=== PATIENT | male | born 1930 | race Caucasian/White ===

== ENCOUNTER 2016-05-05 15:32 | Inpatient (IN) | payer OTHER, BC, MEDICARE ==
[~2016-05-05] VITALS: Ht 167.6 cm; Wt 85.3 kg
[~2016-05-05 15:32] MED LIST: ALBUTEROL2.5 MG/3 M INH/SOL; AMIODARONE200 MG PO; AMOXI/CLAVULANA1 TAB PO; CLEARLAX119 GM PO; COLACE100 M1 PO; COLCHICINE0.6 M2 PO; COREG 3.125M3.125 MG PO; COREG6.25 M1 PO; COUMADIN 2.5 M2.5 MG PO; COUMADIN 5 MG TA5 MG PO; COZAAR50 M1 PO; ELIQUIS2.5 M1 PO; FOLBIC 2 MG-2.51 TAB PO; FOLBIC TABLET1 EACH PO; FOLTX 2 MG PO; LASIX40 M1 PO; LEVOTHYROXINE25 MCG PO; MIRALAX17 G1 PO; NEXIUM40 M1 PO; PREDNISONE10 M2 PO; PREDNISONE5 M1 PO; PREVACID 30MG30 MG PO; PROAIR HFA0.09 MG/Ac INH; PROTONIX 40MG T40 MG PO; PYRIDIUM100 MG PO; STOOL SOFTENER1 TAB PO; SYMBICORT 16010.2 GM INH; SYNTHROID0.025 MG PO; TIKOSYN0.125 MG PO; TOPROL XL 25MG25 MG PO; TYLENOL #31 TAB PO; VITAMIN D31000 UNI1 PO; ZOCOR20 M1 PO; [UNRECOGNIZED DRUG - OTHER] PO
--- NOTE | 2016-05-05 15:51 | NUR ---
COMPLAINS OF INCREASED SOB OVER THE PAST 2 DAYS, STATES THAT HE WAS SENT BY DR ANDRES , O2 SAT 94 % ON RA, PT NOTED TO BE SOB AT REST, HAS HAD COUGH X 2 WEEKS PRODUCTIVE OF CLEAR SPUTUM.
--- NOTE | 2016-05-05 15:52 | NUR ---
PT HAS HISTORY OF [facility]
--- NOTE | 2016-05-05 16:01 | NUR ---
PT TO [facility] RM 12 C/C DIFFICULTY BREATHING AND SWELLING BLE. STATES DR PLASENCIA SENT HIM TO ER FOR FLUID OVERLOAD. DENIES ANY CHEST PAIN. HAD EKG DONE IN [place]. HAS PACEMAKER. DR HENDERSON EVALUATING AT PRESENT.
[2016-05-05] MEDS ORDERED: CLEARLAX119 GM PO (16:11)
[2016-05-05] MEDS ORDERED: ALLOPURINOL100 M1 PO (16:12)
--- NOTE | 2016-05-05 16:17 | NUR ---
PORTABLE CHEST XRAY BEING DONE AT PRESENT
--- NOTE | 2016-05-05 16:35 | ED DYSPNEA/ASTHMA COMPLAINT ---
History of Present Illness General Chief Complaint: Dyspnea (COPD, CHF, Other) Stated Complaint: SOB, LEG SWELLING Source: patient, family, old records Exam Limitations: no limitations Vital Signs & Intake/Output Vital Signs & Intake/Output Vital Signs Date Time Temp Pulse Resp B/P Pulse O2 O2 Flow FiO2 Ox Delivery Rate 05/05 1725 97.2 93 20 128/67 93 Room Air 05/05 1645 93 Room Air Room Air 05/05 1550 97.8 84 22 171/76 94 Room Air Allergies Coded Allergies: caffeine (HEADACHES 05/05/16) Reconcile Medications Albuterol Sulfate 2.5 MG/3 ML VIAL.NEB 1 Vial INH/SIXTO PRN RESPIRATORY ( Reported) Allopurinol 100 MG TABLET 1 TAB PO DAILY GOUT (Reported) Apixaban (Eliquis) 2.5 MG TAB 1 TAB PO Q12H BLOOD THINNER (Reported) Budesonide/Formoterol Fumarate (Symbicort 160-4.5 Mcg Inhaler) 10.2 GM HFA.AER.AD 2 PUF INH BIDP PRN BREATHING (Reported) Carvedilol (Coreg) 6.25 MG TABLET 1.5 TAB PO BID HEART (Reported) Cholecalciferol (Vitamin D3) (Vitamin D3) 1,000 UNIT CAPSULE 1 CAP PO BID SUPPLEMENT (Reported) Colchicine 0.6 MG TABLET 0.5 TAB PO DAILY GOUT Cyanocobalamin/FA/Pyridoxine (Folbic Tablet) 1 EACH TABLET 1 TAB PO DAILY SUPPLEMENT (Reported) Docusate Sodium (Colace) 100 MG CAPSULE 1 CAP PO DAILY STOOL SOFTENER ( Reported) Esomeprazole (Nexium) 40 MG CAPSULE.DR 1 CAP PO BID GI (Reported) Furosemide 40 MG TAB 1 TAB PO DAILY DIURETIC (Reported) Levothyroxine Sodium 25 MCG TABLET 1 TAB PO DAILY AC THYROID (Reported) Losartan Potassium (Cozaar) 50 MG TABLET 1 TAB PO DAILY BP (Reported) Polyethylene Glycol 3350 (Clearlax) 17 GRAM/DOSE POWDER 0.5 CAP PO DAILY GI ( Reported) Prednisone 5 MG TABLET 1 TAB PO BID GOUT (Reported) Please start taking on 04/14/16 Simvastatin (Zocor) 20 MG TAB 1 TAB PO QPM CHOLESTEROL (Reported) Core Measure Meds Pre-Hospital Eliquis Triage Note: COMPLAINS OF INCREASED SOB OVER THE PAST 2 DAYS, STATES THAT HE WAS SENT BY DR MOLL , O2 SAT 94 % ON RA, PT NOTED TO BE SOB AT REST, HAS HAD COUGH X 2 WEEKS PRODUCTIVE OF CLEAR SPUTUM. Triage Nurses Notes Reviewed? yes Onset: 2 days Duration: day(s): (2), constant, continues in ED, getting worse Timing: recent history Severity: severe Activities at Onset: activity Prior Episodes/Possible Cause: occasional episodes Modifying Factors: Improves With: rest. Worsens With: movement. Associated Symptoms: edema, wheezing, weakness HPI: 2 days prior to admission patient complains of dyspnea on exertion fatigue increasing pedal edema. He denies fever chills chest pain, headache dysuria rash nausea vomiting diarrhea abdominal pain bleeding. Past History Travel History Traveled to [place] past 21 day No Medical History Any Pertinent Medical History? 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 No Review of Systems Review of Systems Constitutional: Reports: no symptoms, malaise, weakness. EENTM: Reports: no symptoms. Respiratory: Reports: see HPI, short of breath, wheezing. Cardiovascular: Reports: see HPI, edema. GI: Reports: no symptoms. Genitourinary: Reports: no symptoms. Musculoskeletal: Reports: no symptoms. Skin: Reports: no symptoms. Neurological/Psychological: Reports: no symptoms. Hematologic/Endocrine: Reports: no symptoms. Immunologic/Allergic: Reports: no symptoms. All Other Systems: Reviewed and Negative Physical Exam Physical Exam General Appearance: alert, awake, anxious, mild distress, obese Head: atraumatic, normal appearance Eyes: Bilateral: normal appearance, PERRL, EOMI. Ears, Nose, Throat: normal pharynx, normal ENT inspection Neck: normal inspection, supple, full range of motion, JVD, no midline tenderness Respiratory: chest non-tender, decreased breath sounds, crackles, wheezing Cardiovascular: regular rate/rhythm, normal peripheral pulses, norml femoral pulses equa Peripheral Pulses: 4+ carotid (R), 4+ carotid (L) Gastrointestinal: normal bowel sounds, soft, non-tender, no organomegaly Extremities: normal capillary refill, normal range of motion, pedal edema, no ligament instability Neurologic/Psych: no motor/sensory deficits, awake, alert, oriented x 3, normal gait, normal mood/affect Skin: intact, normal color, warm/dry Lymphatic: no anterior cervical angelita Core Measures ACS in differential dx? Yes Severe Sepsis Present: No Septic Shock Present: No Progress Differential Diagnosis: AMI, CHF, pneumonia Plan of Care: Orders Procedure Date/time Status Regular Diet 05/05 D Active Patient Data 05/05 1832 Active Intake & Output 05/05 1739 Active OXYGEN SETUP (GEN) 05/05 1606 Active Saline Lock 05/05 1606 Active Admit to inpatient 05/05 1606 Active Vital Signs 05/05 1606 Active Activity/Ambulation 05/05 1606 Active Code Status 05/05 1606 Active TROPONIN LEVEL 05/05 1605 Complete MAGNESIUM 05/05 1605 Complete COMPREHENSIVE METABOLIC PANEL 05/05 1605 Complete CBC WITHOUT DIFFERENTIAL 05/05 1605 Complete B-TYPE NATRIURETIC PEP (BNP) 05/05 1605 Complete EKG 05/05 1534 Active Laboratory Tests 05/05/16 1636: Anion Gap 14, Estimated GFR 36 L, BUN/Creatinine Ratio 34.4 H, Glucose 122 H, Calcium 9.6, Magnesium 2.1, Total Bilirubin 0.8, AST 30, ALT 29, Alkaline Phosphatase 73, Troponin I 0.11 *H, [id number] Pept 3060 H, Total Protein 7.1, Albumin 3.8, Globulin 3.3, Albumin/Globulin Ratio 1.2, CBC w Diff NO MAN DIFF REQ, RBC 4.07 L, MCV 93.1, MCH 31.3 H, RDW 13.6, MPV 9.5, Gran % 79.0 H, Lymphocytes % 9.4 L, Monocytes % 9.3, Eosinophils % 1.9, Basophils % 0.4, Absolute Granulocytes 8.5 H, Absolute Lymphocytes 1.0 L, Absolute Monocytes 1.0 H, Absolute Eosinophils 0.2, Absolute Basophils 0, PUBS MCHC 33.7 Diagnostic Imaging: Viewed by Me: Radiology Read. Discussed w/RAD: Radiology Read. CXR Impression: Pulmonary hypoinflation. Persistent opacities within the left lung base which could reflect linear scarring or subsegmental atelectasis. Stable prominence of the cardiac silhouette, without overt pulmonary edema. Initial ED EKG: pacemaker rhythm Prior EKG: unchanged Rhythm Strip: paced Departure Departure Disposition: STILL A PATIENT Condition: Stable Clinical Impression Primary Impression: Elevated troponin Secondary Impressions: Renal insufficiency Volume overload Qualifiers: Hypervolemia type: unspecified Qualified Code: E87.70 - Fluid overload, unspecified Referrals: ERINN CARRERA,DOUGLAS Bustamante (PCP/Family) Departure Forms: Customer Survey General Discharge Information Admission Note Spoke With: BOBBI BARROSO MD Documentation of Exam: Documentation of any treatments & extenuating circumstances including Concerns Regarding Discharge (functional status, medication knowledge or non-compliance, living conditions, etc.) that warrant an admission rather than observation: Serial lab exam cardiac monitoring medication adjustment cardiology evaluation continuing care discharge planning Critical Care Note Critical Care Note Critical Care Time: 30-74 min (40)
--- NOTE | 2016-05-05 16:45 | NUR ---
IV ACCESS ESTABLISHED, #20 RH LABS DRAWN/SENT PT MEDICATED WITH LASIX PER ORDERS
[2016-05-05 16:50] LABS: ABSOLUTE BASOPHIL COUNT 0 /CUMM (0.0-0.2); ABSOLUTE EOSINOPHIL COUNT 0.2 /CUMM (0.0-0.7); ABSOLUTE GRANULOCYTE CT 8.5 /CUMM (1.4-6.5); BASOPHIL % 0.4 % (0.0-2.0); EOSINOPHIL % 1.9 % (0-5); HEMATOCRIT 37.9 % (42-52); MEAN CORPUSCULAR HGB 31.3 PG (27.0-31.0); MEAN CORPUSCULAR HGB CONC 33.7 G/DL (33.0-37.0); MEAN CORPUSCULAR VOLUME 93.1 FL (80.0-94.0); MEAN PLATELET VOLUME 9.5 FL (7.4-10.4); PLATELET COUNT 147 /CUMM (130-400); RBC DISTRIBUTION WIDTH 13.6 % (11.5-14.5); RED BLOOD CELL CT 4.07 /CUMM (4.70-6.10); WHITE BLOOD CELL COUNT 10.8 /CUMM (4.8-10.8)
--- NOTE | 2016-05-05 16:51 | RADIOLOGY REPORT ---
EXAMINATION: XR PORTABLE CHEST CLINICAL INFORMATION: Shortness of breath. COMPARISON: None. TECHNIQUE: Portable view of the chest was obtained. FINDINGS: The lungs are hypoinflated, with minimal dependent bibasilar subsegmental atelectasis. No focal airspace consolidation. No pleural effusions or pneumothoraces are identified. Cardiomediastinal contours are stable. Stable cardiomegaly. There is a left chest wall cardiac device with leads visualized terminating in the expected region of the right atrium and right ventricle. Soft tissues are unremarkable. No acute osseous abnormality is identified. IMPRESSION: Pulmonary hypoinflation. Persistent opacities within the left lung base which could reflect linear scarring or subsegmental atelectasis. Stable prominence of the cardiac silhouette, without overt pulmonary edema.
--- NOTE | 2016-05-05 17:20 | NUR ---
CRITICAL TEST RESULTS [id number] HESHAM CARLOS SR 85 M TESTS AND RESULTS: TROPONIN 0.11 Results received and read back by: ALEXY ROD Results received date and time: 05/05/16 1721 The following provider was notified of the results, and read the results back: DR. Carlita HENDERSON Notified date and time: 05/05/16 at 1715
--- NOTE | 2016-05-05 19:13 | NUR ---
RECIEVED REPORT FROM PRIETO BARBER. ASSUMED CARE OF PT. PT DENIES SOB AT THIS TIME.94% ON RA. PACED NSR. VSS.
--- NOTE | 2016-05-05 19:45 | NUR ---
HOUSE STAFF IN ROOM TO EVAL PT
--- NOTE | 2016-05-05 20:03 | NUR ---
PT O2 91%. PLACED ON 2L NC AT THIS TIME AND SATTING 98%.
--- NOTE | 2016-05-05 20:31 | NUR ---
MOVED TO ROOM 22. ASSUMED CARE OF PT.
--- NOTE | 2016-05-05 20:44 | NUR ---
HOUSE STAFF IN TO SEE PT. DR BURGOS NOTIFIED OF TACHYCARDIA WITH FREQUENT PVCS AND SIGNIFIGANT DYSPNEA ON EXERTION
--- NOTE | 2016-05-05 21:55 | History & Physical ---
UZMA CARRERA,[facility] 05/05/16 2154: General Information and HPI MD Statement: I have seen and personally examined HESHAM CARLOS SR and documented this H&P. The patient is a 85 year old M who presented with a patient stated chief complaint of dyspnea. Source of Information: patient Exam Limitations: no limitations History of Present Illness: This is an 85 yo very pleasent gentleman with past medical history significant for CAD s/p 7 stents, CHF, A. fib (status post defibrillator and pacemaker placed 2010) on Eliquis, TIA, gout of right great toe, lung cancer s/p right lobe resection, prostate cancer, hypothyroidism, osteoarthritis, hypertension, hyperlipidemia, presented with chief complaint of progressively worsening dyspnea. 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 Patient states that his increased shortness of breath started 2 weeks ago and has progressively worsened during the last 2 days and is now experiencing dyspnea with minimal exertion. Patient also reports worsening orthopnea and is now sleeping ON a recliner since last week. Patient also endorses bilateral lower extremity edema specifically on his ankles. Patient does deny any chest pain, palpitation, PND, any recent upper respiratory infection, any sick contacts, or any recent travel. At baseline, patient is independent with his IADLS, ambulates freely with a cane without any problems. Allergies/Medications Allergies: Coded Allergies: caffeine (HEADACHES 05/05/16) Home Med list Albuterol Sulfate 2.5 MG/3 ML VIAL.NEB 1 Vial INH/SIXTO PRN RESPIRATORY ( Reported) Allopurinol 100 MG TABLET 1 TAB PO DAILY GOUT (Reported) Apixaban (Eliquis) 2.5 MG TAB 1 TAB PO Q12H BLOOD THINNER (Reported) Budesonide/Formoterol Fumarate (Symbicort 160-4.5 Mcg Inhaler) 10.2 GM HFA.AER.AD 2 PUF INH BIDP PRN BREATHING (Reported) Carvedilol (Coreg) 6.25 MG TABLET 1.5 TAB PO BID HEART (Reported) Cholecalciferol (Vitamin D3) (Vitamin D3) 1,000 UNIT CAPSULE 1 CAP PO BID SUPPLEMENT (Reported) Colchicine 0.6 MG TABLET 0.5 TAB PO DAILY GOUT Cyanocobalamin/FA/Pyridoxine (Folbic Tablet) 1 EACH TABLET 1 TAB PO DAILY SUPPLEMENT (Reported) Docusate Sodium (Colace) 100 MG CAPSULE 1 CAP PO DAILY STOOL SOFTENER ( Reported) Esomeprazole (Nexium) 40 MG CAPSULE.DR 1 CAP PO BID GI (Reported) Furosemide 40 MG TAB 1 TAB PO DAILY DIURETIC (Reported) Levothyroxine Sodium 25 MCG TABLET 1 TAB PO DAILY AC THYROID (Reported) Losartan Potassium (Cozaar) 50 MG TABLET 1 TAB PO DAILY BP (Reported) Polyethylene Glycol 3350 (Clearlax) 17 GRAM/DOSE POWDER 0.5 CAP PO DAILY GI ( Reported) Prednisone 5 MG TABLET 1 TAB PO BID GOUT (Reported) Please start taking on 04/14/16 Simvastatin (Zocor) 20 MG TAB 1 TAB PO QPM CHOLESTEROL (Reported) Past History Travel History Traveled to [place] past 21 day No Medical History Neurological: STROKE EENT: NONE Cardiovascular: AFIB, CHF, NH, PACEMAKER, DEFIBRILAT HTN, HIGHCHOLESTEROL STEN Respiratory: LUNG CA Gastrointestinal: GERD Hepatic: NONE Renal: NONE Musculoskeletal: NONE Psychiatric: NONE Endocrine: hypothyroidism Blood Disorders: NONE Cancer(s): prostate cancer, RIGHT UPPER LOBE REMOVED CA AND PORTION OF RIGHT LOWER LOBE CANCEROUS GROWTH L 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 Ambulation: independent, cane, non-ambulatory IADLs Independent: shopping, housework, finances, food prep, telephone, transportation , medication admin. Review of Systems Review of Systems Constitutional: Denies: chills, diaphoresis, fever. EENTM: Denies: blurred vision, double vision, visual changes. Cardiovascular: Reports: edema, orthopena. Denies: chest pain, palpitations, syncope. Respiratory: Reports: cough. Denies: hemoptysis. GI: Denies: abdominal pain, bloating, constipation. Genitourinary: Denies: dysuria, frequency, hematuria. Musculoskeletal: Denies: joint swelling, muscle pain. Skin: Denies: change in skin color, change in hair/nails. Neurological/Psychological: Denies: anxiety, cognitive dysfunction, confusion. Hematologic/Endocrine: Denies: bleeding, polyuria. Immunologic/Allergic: Reports: no symptoms. Exam & Diagnostic Data Last 24 Hrs of Vital Signs/I&O Vital Signs Date Time Temp Pulse Resp B/P Pulse O2 O2 Flow FiO2 Ox Delivery Rate 05/06 0035 Nasal 2.0L Cannula 05/05 2317 97 Nasal 2.0L Cannula 05/05 2231 154 142/76 05/05 2128 154 22 142/76 97 Nasal 2.0L Cannula 05/05 1920 97.6 78 20 137/67 94 Room Air 05/05 1725 97.2 93 20 128/67 93 Room Air 05/05 1645 93 Room Air Room Air 05/05 1550 97.8 84 22 171/76 94 Room Air Intake & Output 05/06 0800 05/06 0000 05/05 1600 Intake Total Output Total 600 Balance -600 Output, Urine 600 Patient 85.275 kg 85.275 kg Weight Physical Exam General Appearance Alert, Oriented X3, Cooperative Skin ecchymosis noted on hands b/l HEENT Atraumatic, EOMI, Mucous Membr. moist/pink, hypodentition noted on the upper jaw., Elevated JVD Neck Supple, No JVD, +2 Carotid Pulse wo Bruit, No LAD Lymphatic Cervical nl Cardiovascular Normal S1, Normal S2, systolic murmur Lungs bilateral expiratory wheezes noted on al the lung hernandez Abdomen Normal Bowel Sounds, Soft, No Tenderness, No Hepatospenomegaly Neurological Normal Speech, Sensation Intact Extremities pitting edema +3 on ankles b/l Vascular Normal Pulses Last 24 Hrs of Labs/Pro: Laboratory Tests 05/05/165: pH 7.45, pCO2 40, pO2 95, HCO3 27, ABG O2 Sat (Measured) 97.0, Carboxyhemoglobin 0.6 L, O2 Concentration % 2L, O2 Delivery Method NC, Phlebotomy Draw Site RIGHT RADIAL 05/05/16 2226: Troponin I 0.14 *H 05/05/16 1636: Anion Gap 14, Estimated GFR 36 L, BUN/Creatinine Ratio 34.4 H, Glucose 122 H, Calcium 9.6, Magnesium 2.1, Total Bilirubin 0.8, AST 30, ALT 29, Alkaline Phosphatase 73, Troponin I 0.11 *H, Kco-I-Qyqgmbmfswj Pept 3060 H, Total Protein 7.1, Albumin 3.8, Globulin 3.3, Albumin/Globulin Ratio 1.2, CBC w Diff NO MAN DIFF REQ, RBC 4.07 L, MCV 93.1, MCH 31.3 H, RDW 13.6, MPV 9.5, Gran % 79.0 H, Lymphocytes % 9.4 L, Monocytes % 9.3, Eosinophils % 1.9, Basophils % 0.4, Absolute Granulocytes 8.5 H, Absolute Lymphocytes 1.0 L, Absolute Monocytes 1.0 H, Absolute Eosinophils 0.2, Absolute Basophils 0, PUBS MCHC 33.7 Diagnostic Data CXR Results SERVICE DATE: 05/05/16160 EXAM TYPE: RAD - XRY-PORTABLE CHEST XRAY EXAMINATION: XR PORTABLE CHEST CLINICAL INFORMATION: Shortness of breath. COMPARISON: None. TECHNIQUE: Portable view of the chest was obtained. FINDINGS: The lungs are hypoinflated, with minimal dependent bibasilar subsegmental atelectasis. No focal airspace consolidation. No pleural effusions or pneumothoraces are identified. Cardiomediastinal contours are stable. Stable cardiomegaly. There is a left chest wall cardiac device with leads visualized terminating in the expected region of the right atrium and right ventricle. Soft tissues are unremarkable. No acute osseous abnormality is identified. IMPRESSION: Pulmonary hypoinflation. Persistent opacities within the left lung base which could reflect linear scarring or subsegmental atelectasis. Stable prominence of the cardiac silhouette, without overt pulmonary edema. Assessment/Plan Assessment: This is a 85-year-old gentleman with significant history of CAD with multiple stent placements, A. fib, CHF is presenting with symptoms suggestive of decompensated CHF (worsening dyspnea, lower extremity edema, orthopnea). Of note, patient does have elevated troponins. However it is most likely secondary to myocardial demand/supply mismatch as patient has developed tachycardia while in the ED, and is unlikely to be associated with Plaque rupture especially in the absence of any chest pain or any other typical symptoms . It should be noted that the patient has some element of chronic renal insufficiency which might contribute to elevated troponins and decreased washout. However we will need to rule out completely r/o ACS as the possible cause of patient's presentation of decompensated CHF. Physical examination findings of diffuse expiratory bilateral wheezes , is concerning especially considering the Pulmonary function test done in 07/18/2014 , which was remarkable for mild obstructive lung disease. Pt is possibly presenting with worsening obstructive lung disease. Plan * Admit to telemetry * We'll trend troponins and EKG rule out ACS * Start furosemide 40 mg twice a day * Strict ins and outs * Echocardiogram * Cardiology on board (appreciated) * Continue Elliquis for parosxymal afib. * O2 supplementation to keep sats above 92% * Start Solu-Medrol 40 mg every 8 hours for wheezing * TRC nebs * For chronic medical condition: Hyperlipidemia, gout, hypertension, hypothyroidism: Willl continue home meds As Ranked By This Provider Problem List: 1. CONGESTIVE HEART FAILURE 2. Elevated troponin Core Measures/Miscellaneous Acute Coronary Syndrome ACS Diagnosis: No Cerebrovascular Accident CVA/TIA Diagnosis: No Congestive Heart Failure CHF Diagnosis: No Venous Thromboembolism VTE Risk Factors: Age > 40 VTE Prophylaxis Ordered Inpt: Pharm- Eliquis No Mech VTE prophylaxis d/t: No contraindications No VTE Pharm Prophylaxis d/t: No contraindications VTE Diagnosis: No VTE Type: NONE VTE Confirmed by (Test): NONE Severe Sepsis Severe Sepsis Present: No Septic Shock Septic Shock Present: No Miscellaneous Documentation Attending Case Discussed With: BOBBI BARROSO MD Primary Care Physician: DOUGLAS PLASENCIA MD 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 Level of Patient Care: Telemetry SHAUN BURGOS 05/05/16 2250: Resident Review Statement Resident Statement: examined this patient, discussed with staff internist office based only, agreed with staff internist office based only Other Findings: Patient is 85-year-old woman with past medical history significant for significant coronary artery disease status post 7 stents placed , history of TIA ,systolic heart failure EF of 35%, atrial fibrillation status post post pacer and a fibrillator on Eliquis, history of lung cancer, history of prostate cancer diagnosed 2014 status postradiation and surgerY, history of recent left eyebrow lesion status post removal by Heriberto Hurtado MD, recently admitted to [facility] in April due to gout arthritis, presented to the ED with chief complaints of worsening exertional dyspnea. Patient mentioned that last 1 week he has been sleeping in the region in a position mostly short of breath at night, coughing bringing up clear phlegm. Also reports exertional dyspnea. For the last 2-3 days he's been getting more short of breath, denies any chest discomfort or palpitations. Today his symptoms got worse after coming back from clinic appointment and came to the ER for further assessment. Denies any recent infections, fever or chills. Denies any recent travels change of medications. Reports nausea without any vomiting or abdominal discomfort. Reports worsening bilateral leg swellings. Vitals on admission temperature 97.8, pulse 84, blood pressure 171/79 that improved to 128/67 saturating more than 92% on 2 L. On examination: General Appearance: alert oriented 3, appeared in moderate distress HEENT: PEERLA Neck: Supple, positive JVD Cardiovascular: Irregular rate and rhythm Lungs: Bilateral wheeze on exam Abdomen: Normal Bowel Sounds without any tenderness. Neurological: Normal Speech, Strength at 5/5 X4 Ext, Cranial Nerves 3-12 NL, Reflexes 2+ Extremities: 2+ pitting edema bilaterally in the lower extremities. Vascular: Normal Pulses. Pertinent labs on admission WBC count 10.8 with granulocytosis of 79, normal sodium and potassium levels elevated BUN and creatinine 62/1.8 ,creatinine close to the baseline. ABG done in the ED is normal pH 7.45 with PCO2 of 40 and PO2 of 95, Elevated troponin 0.11 with EKG done in the ED showed ventricular paced rhythm with nonspecific ST changes. Chest x-ray done in the ED Pulmonary hypoinflation. Persistent opacities within the left lung base which could reflect linear scarring or subsegmental atelectasis. Stable prominence of the cardiac silhouette, without overt pulmonary edema. Negative stress test done in 2014 reversible ischemia with an EF 35%(decreased from 40-45%) Pulmonary function test done in 07/18/2014 showed mild obstructive lung disease Assessment/plan 1. Acute hypoxic respiratory failure due to possible acute on chronic systolic heart failure with possible underlying COPD exacerbation 2. Rule out acute coronary syndrome(history of significant coronary artery disease status post 7 stents placed) 3. History OF hypothyroidism 4. History of gout arthritis plan 1. Acute hypoxic respiratory failure due to possible acute on chronic systolic heart failure with possible underlying COPD exacerbation: * We'll admit the patient to telemetry floor * Talk to Dr. Mack over the phone, patient already received a one-time dose of IV Lasix 40 mg in the ED will continue with IV Lasix 40 mg for possible acute systolic heart failure. * Monitor strict in's and O's with daily weight changes. * Leg elevation. * Repeat echocardiogram. * Continuous and keep saturation above 92%. * As patient is clearly wheezing, we'll start the patient on IV Solu-Medrol 40 mg every 8 hours for possible underlying COPD exacerbation. * Start azithromycin for antiinflammatory properties * Continue Symbicort * Continue TRC nebs * Watch for any hemodynamic instability overnight. 2. Rule out acute coronary syndrome(history of significant coronary artery disease status post 7 stents placed) * Elevated troponins without any significant ST-Tchanges * Talked to Dr. Mack over the phone, he said continue to monitor patient overnight. If patient becomes any worse and become more symptomatic Will call cardiology. 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 History of paroxysmal atrial fibrillation * Continue with home dose of elliquis . 4. History OF hypothyroidism: * Continue with levothyroxin 5. History of gout arthritis * Continue with allopurinol. 6 mild to moderate pain controlled with Tylenol 7. DVT prophylaxis with elliquis. 8. Full code DHARMESH,AARTEE 05/06/16 0249: Attending MD Review Statement Attending Statement Attending MD Statement: examined this patient, discuss w/resident/PA/PSYCHIATRIC LPN, agreed w/resident/PA/PSYCHIATRIC LPN, reviewed EMR data (avail), reviewed images, amended to note Attending Assessment/Plan: Cc: Worsening shortness of breath PMHx: HFrEF (EF 35% ON nuclear imaging in 2014) , CAD S/P stents, suspected COPD , A. 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 Last 2-3 days patient was having worsening of the symptoms, probably followed by post nasal drip according to patient. He followed up with Dr. Plasencia outpatient 2-3 days back who increased his dose of Lasix, without much relief. Patient's symptoms are worsening along with orthopnea. Patient was sleeping in a recliner at home. Denies any chest pain, fever, chills, loss of consciousness, headache, neurological weakness, sick contacts. Patient did not take flu vaccine since last 2 years because of previous severe reaction. Vitals: Afebrile, intermittent tachycardic in ER with RR 20, blood pressure stable requiring 2 L to saturate at 94%. Intermittently patient was desaturating at 88%. On exam: A O 3, intermittent severe respiratory distress, patient tripoding at times exaggerated by cough. Elevated JVD, CVS: S1-S2, RS: Diffuse bilateral wheezing, no bibasilar crackles. Mucosa dry, neck supple, no lymphadenopathy, patient has dressing on left forehead and in parotid area, probably with recent surgery. Abdomen: Soft, NT, ND, bowel sounds present. Pitting edema on feet. No focal neurological deficit. Labs show W BC of 10.8 with neutrophils 79%, hemoglobin 12.8, glucose 122, creatinine 1.8 which is baseline, troponin 0.11, proBNP 3060 elevated from 1370 in April 2016, LFT normal, Chest x-ray: Persistent opacity within left lung base which could be atelectasis versus scarring. EKG wide complex, paced rhythm. A and P #1 acute hypoxic respiratory failure: Probably secondary to decompensated heart failure and COPD exacerbation. Chest x-ray does not show any new infiltrates, no significant leukocytosis or fever. But patient is significantly short of breath with diffuse wheezing bilaterally. Patient received 40 mg of Lasix IV in ER which provided some relief but was significantly better after nebulization and second dose of Lasix. Previous pulmonary function test suggest some obstructive pulmonary disease, patient has a very remote history of smoking for a few years. Continue IV methylprednisolone 40 mg every 8 hour, nebulization, O2 support, Mucinex, check flu test. Repeat 40 mg of IV Lasix in AM. Repeat chest x-ray in morning to rule out any development of consolidation, get sputum culture #2 elevated troponins: Patient has shortness of breath, volume overload which may precipitate demand ischemia. But patient has extensive cardiac history with multiple stents in the past, with the recent reversible ischemia in nuclear imaging done in 2014. In this scenario closely monitor patient on telemetry, repeat EKG, trend troponin, informed cardiology, patient currently on Eliquis , change to heparin drip if symptoms worsen of markedly increasing troponin. Continue Coreg, Eliquis. Patient not on aspirin, continue atorvastatin #3 decompensated heart failure: Patient had 40-50% ejection fraction on echocardiogram done in 2012 it was followed by stress test in 2014 which shows ejection fraction of 35% on nuclear imaging. Patient had some elevated JVD, pedal edema with elevated proBNP. Patient had extensive wheezing (?cardiac wheezing), but no obvious crackles. Continue IV Lasix, eyes and O's, informed cardiology, ? Repeat 2-D echo #4 COPD exacerbation: Plan as mentioned above. #5 chronic stable conditions see KD, HTN, OA, gout, HLD, CVA, A. fib: Continue all his home medications including allopurinol, Coreg, colchicine, Nexium, Synthroid, losartan. #6 pain control with pain pathway, patient on Eliquis for DVT prophylaxis.
--- NOTE | 2016-05-05 22:48 | NUR ---
PT CONTINUES TO HAVE EXPIRATORY WHEEZES AND SHORT OF BREATH WITH MINIMAL EXERTION. DR BURGOS NOTIFIED AND JOSE LUIS HOLLIS ORDERED. RT TREY ABGS. REVIEWED LASIX ORDER WITH LORETTA AND SHE STATES TO GIVE EVENING DOSE ORDERED
--- NOTE | 2016-05-05 22:48 | NUR ---
PT SITTING UP ON EDGE OF BED
--- NOTE | 2016-05-05 22:52 | NUR ---
PT GETTING NEB TREATMENT. SITTING ON EDGE OF BED.
--- NOTE | 2016-05-05 23:20 | NUR ---
CRITICAL TEST RESULTS [id number] HESHAM CARLOS T SR 85 M TESTS AND RESULTS: TROPONIN 0.14 Results received and read back by: MICHELE MONTEMAYOR Results received date and time: 05/05/16 2321 The following provider was notified of the results, and read the results back: DR LANDIN Notified date and time: 05/05/16 at 2320
--- NOTE | 2016-05-05 23:26 | NUR ---
REPORT GIVEN TO STEPH MOREAU
--- NOTE | 2016-05-06 02:51 | Admission Certification ---
Admission Certification Certification Statement - As attending physician, I certify that at the time of - admission, based on clinical presentation, severity of - symptoms, need for further diagnostic testing and - therapeutic interventions, and risk of adverse outcomes - without in-hospital treatment, in my clinical assessment, - this patient requires an acute hospital stay for a minimum - of two nights or longer. I have also considered psychsocial - factors such as support system, advanced age, financial - issues, cognitive issues, and failed out-patient treatments, - past re-admission history, safety of patient, and lack of - compliance as applicable. Specific rationale supporting this admission is: elevated troponin, acute Heart failure, COPD exacerbation.
[2016-05-06 04:48] LABS: ABSOLUTE BASOPHIL COUNT 0 /CUMM (0.0-0.2); ABSOLUTE EOSINOPHIL COUNT 0 /CUMM (0.0-0.7); ABSOLUTE GRANULOCYTE CT 8.6 /CUMM (1.4-6.5); ABSOLUTE LYMPH COUNT 0.8 /CUMM (1.2-3.4); ABSOLUTE MONOCYTE COUNT 0.3 /CUMM (0.10-0.60); BASOPHIL % 0.3 % (0.0-2.0); EOSINOPHIL % 0.4 % (0-5); GRANULOCYTE % 88.1 % (42.2-75.2); HEMATOCRIT 37.4 % (42-52); MEAN CORPUSCULAR HGB 31.7 PG (27.0-31.0); MEAN CORPUSCULAR HGB CONC 33.9 G/DL (33.0-37.0); MEAN CORPUSCULAR VOLUME 93.4 FL (80.0-94.0); MEAN PLATELET VOLUME 9.1 FL (7.4-10.4); PLATELET COUNT 133 /CUMM (130-400); RBC DISTRIBUTION WIDTH 13.6 % (11.5-14.5); RED BLOOD CELL CT 4.01 /CUMM (4.70-6.10); WHITE BLOOD CELL COUNT 9.8 /CUMM (4.8-10.8)
[2016-05-06 06:10] VITALS: BP 134/68
--- NOTE | 2016-05-06 06:43 | NUR ---
APPX [id number], LAB CALLED TO REPORT TROPONIN OF 0.15. RN PAGED HOUSE STAFF. NO RETURN CALL. HOUSE STAFF PAGED AGAIN. MOD THEN PAGED. NO RETURN CALL. WILL CONTINUE TO PAGE AND LET NEXT NURSE SITUATION
--- NOTE | 2016-05-06 07:58 | RADIOLOGY REPORT ---
EXAMINATION: XR PORTABLE CHEST CLINICAL INFORMATION: Shortness of breath. COMPARISON: 05/05/2016 TECHNIQUE: Portable view of the chest was obtained. FINDINGS: Left chest wall AICD/pacer is unchanged. Low lung volumes. Bibasilar patchy opacities noted. Small right pleural effusion. The appearance is without significant change. No pneumothorax. The cardiomediastinal silhouette is unchanged, with a calcified aorta. No acute osseous abnormality. IMPRESSION: No significant change from prior. Low lung volumes with patchy basilar opacities most suggestive of subsegmental atelectasis. Small right pleural effusion suspected.
--- NOTE | 2016-05-06 08:11 | PN- Housestaff ---
RONALDO GANDHI 05/06/16 0810: Subjective Follow-up For: -Acute hypoxic respiratory failure -Diastolic CHF Other problems : -Chronic renal insufficiency -Atrial fibrillation withpermanent pacemaker placed -Gout -Hypothyroidism Complaints: no complaints Subjective: I have seen and examined the patient today morning, he was sitting comfortable in the bed, shortness of breath has improved from presentation, currently on 2 L of nasal cannula saturating 97%, he was complaining of cramping in the the afternoon today. Review of Systems Constitutional: Reports: malaise. Denies: chills, diaphoresis, fever, weakness, unexplained weight loss. EENTM: Denies: blurred vision, double vision, visual changes, eye pain. Cardiovascular: Reports: see HPI, edema, peripheral edema. Denies: orthopena, palpitations. Respiratory: Reports: short of breath, wheezing. Gastrointestinal: Reports: no symptoms. Genitourinary: Reports: no symptoms. Musculoskeletal: Reports: muscle stiffness. Skin: Reports: no symptoms. Objective Last 24 Hrs of Vital Signs/I&O Vital Signs Date Time Temp Pulse Resp B/P Pulse O2 O2 Flow FiO2 Ox Delivery Rate 05/06 0610 96.6 95 16 134/68 97 Nasal 2.0L Cannula 05/06 0035 Nasal 2.0L Cannula 05/05 2317 97 Nasal 2.0L Cannula 05/05 2231 154 142/76 05/05 2128 154 22 142/76 97 Nasal 2.0L Cannula 05/05 1920 97.6 78 20 137/67 94 Room Air 05/05 1725 97.2 93 20 128/67 93 Room Air 05/05 1645 93 Room Air Room Air 05/05 1550 97.8 84 22 171/76 94 Room Air Intake & Output 05/06 1600 05/06 0800 05/06 0000 Intake Total 260 Output Total 425 600 Balance -165 -600 Intake, IV 260 Output, Urine 425 600 Patient 85.275 kg Weight Physical Exam General Appearance: Alert, Oriented X3, Cooperative, on 2 litres nasal cannula Skin: No Rashes, No Breakdown, No Significant Lesion HEENT: Atraumatic, PERRLA, EOMI Neck: Supple, No JVD, No thryomegaly Lymphatic: no lad Cardiovascular: Normal S1, Normal S2 Lungs: b/l wheezing present Abdomen: Normal Bowel Sounds, Soft, No Tenderness Neurological: Normal Speech, Normal Tone, Sensation Intact Extremities: b/l le edema, mild 1+, says better than last few days , mainly around the ankle area Vascular: Normal Pulses Current Medications: Current Medications Sig/Jaswinder Start time Last Medication Dose Route Stop Time Status Admin Acetaminophen 650 MG Q6-PRN PRN 05/05 2200 AC PO Albuterol Sulfate 3 ML ONCE ONE 05/05 2315 DC 05/05 INH 05/05 2316 2317 Allopurinol 100 MG DAILY 05/06 1000 AC PO Apixaban 2.5 MG Q12 05/05 2200 AC 05/05 PO 2231 Atorvastatin Calcium 10 MG 1700 05/06 1700 AC PO Azithromycin 500 MG AT BEDTIME 05/05 2345 AC 05/06 Sodium Chloride 250 ML IV 0046 Budesonide/ 2 PUF BID 05/06 1000 AC Formoterol Fumarate INH Carvedilol 0 .STK-MED ONE 05/05 2208 DC PO Carvedilol 0 .STK-MED ONE 05/05 2205 DC PO Carvedilol 9.375 MG BID 05/05 2200 AC 05/05 PO 2231 Colchicine 300 MCG DAILY 05/06 1000 AC PO Docusate Sodium 100 MG DAILY 05/06 1000 AC PO Furosemide 40 MG DAILY 05/06 1000 CAN PO Furosemide 0 .STK-MED ONE 05/06 0650 DC IV Furosemide 0 .STK-MED ONE 05/05 2234 DC IV Furosemide 40 MG BOLUS ONE 05/05 2230 CAN IV 05/05 2231 Furosemide 40 MG 7:30 AM, & 4:30 PM 05/05 2230 AC 05/06 IV 0700 Furosemide 0 .STK-MED ONE 05/05 1640 DC IV Furosemide 40 MG ONCE ONE 05/05 1615 DC 05/05 IV 05/05 1616 1644 Ipratropium [place] 2.5 ML ONCE ONE 05/05 2315 DC 05/05 INH 05/056 2317 Levothyroxine Sodium 0.025 MG DAILY AC 05/06 0700 AC 05/06 PO 0700 Losartan Potassium 50 MG DAILY 05/06 1000 AC PO Methylprednisolone 0 .STK-MED ONE 05/06 0650 DC .ROUTE Methylprednisolone 0 .STK-MED ONE 05/06 0008 DC .ROUTE Methylprednisolone 40 MG Q8 05/05 2345 AC 05/06 IV 0700 Omeprazole 40 MG DAILY AC 05/06 0700 AC 05/06 PO 0700 Omeprazole 0 .STK-MED ONE 05/06 0650 DC PO Polyethylene Glycol 17 GM DAILY 05/06 1000 AC PO Last 24 Hrs of Lab/Pro Results Last 24 Hrs of Labs/Mics: Laboratory Tests 05/06/16 0436: Troponin I 0.15 *H 05/06/16 0436: Anion Gap 15, Estimated GFR 32 L, BUN/Creatinine Ratio 32.0 H, CBC w Diff NO MAN DIFF REQ, RBC 4.01 L, MCV 93.4, MCH 31.7 H, RDW 13.6, MPV 9.1, Gran % 88.1 H, Lymphocytes % 8.3 L, Monocytes % 2.9, Eosinophils % 0.4, Basophils % 0.3, Absolute Granulocytes 8.6 H, Absolute Lymphocytes 0.8 L, Absolute Monocytes 0.3, Absolute Eosinophils 0, Absolute Basophils 0, PUBS MCHC 33.9 05/05/16 2245: pH 7.45, pCO2 40, pO2 95, HCO3 27, ABG O2 Sat (Measured) 97.0, Carboxyhemoglobin 0.6 L, O2 Concentration % 2L, O2 Delivery Method NC, Phlebotomy Draw Site RIGHT RADIAL 05/05/16 2226: Troponin I 0.14 *H 05/05/16 1636: Anion Gap 14, Estimated GFR 36 L, BUN/Creatinine Ratio 34.4 H, Glucose 122 H, Calcium 9.6, Magnesium 2.1, Total Bilirubin 0.8, AST 30, ALT 29, Alkaline Phosphatase 73, Troponin I 0.11 *H, [id number]-D-Qhvwfaoinyj Pept 3060 H, Total Protein 7.1, Albumin 3.8, Globulin 3.3, Albumin/Globulin Ratio 1.2, CBC w Diff NO MAN DIFF REQ, RBC 4.07 L, MCV 93.1, MCH 31.3 H, RDW 13.6, MPV 9.5, Gran % 79.0 H, Lymphocytes % 9.4 L, Monocytes % 9.3, Eosinophils % 1.9, Basophils % 0.4, Absolute Granulocytes 8.5 H, Absolute Lymphocytes 1.0 L, Absolute Monocytes 1.0 H, Absolute Eosinophils 0.2, Absolute Basophils 0, PUBS MCHC 33.7 Orders ECHO Findings: echo pending for today. Echocardiogram from December 2012 was limited, [id number] aortic sclerosis, mild mitral insufficiency, ejection fraction 45-50% with mild LVH and mild global hypokinesia, right heart structures were not optimally visualized, pacemaker wires were present in the right heart chambers. Radiology Findings: Chest x-ray from 05/05/2016 showed pulmonary hyperinflation, persistent opacity within the left lung base, no overt pulmonary edema was seen. Chest x-ray from 05/06/2016 showed similar finding with low lung volumes, patchy basilar opacity suggestive of subsegmental atelectasis, small light. Effusion was suspected however no overt pulmonary edema was seen. Miscellaneous Findings: Lower Respiratory cultures were sent but were canceled - due to not so good specimen. Lines/Diet/Fluids Fluids/Infusions: none Catheters/Tubes: o2 nasal cannula Assessment/Plan Assessment: This is a 85-year-old man who came in last night that is 05/05/2016 with chief complaint of worsening exertional dyspnea associated with cough, clear phlegm, referred to [facility] from his primary care practitioner's office for worsening shortness of breath, after no improvement with increased dose of Lasix. 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 He was afebrile with temperature of 97.8 on presentation, pulse of 84, blood pressure of 171/79 came down. On presentation patient was 92% on 2 L however he was intermittently desaturating to 88%. He remained afebrile overnight, he is currently 96% saturating on 2 L of nasal cannula, he has bilateral wheezing present diffusely, he has mild pedal edema bilaterally, mainly in the ankle area ,he has a negative fluid balance, cardiology - Dr. Vidales and banana room cutter Dr. Franco on board. Problem List along with assessment and plan. #1 acute hypoxic respiratory failure (multifactorial) He came in with worsening shortness of breath, did not improve on increased dose of Lasix, pedal edema. Patient had PFTs in July 2014 which showed mild obstruction and severe reduction in DLCO month he does have a diagnosis of obstructive sleep apnea however he refrains from using CPAP and has never used it. The worsening shortness of breath could be secondary to COPD exacerbation, along with diastolic heart failure, pulmonary hypertension. continue IV Solu-Medrol, however but use it to 40 mg IV every 12. Continue azithromycin IV to complete entire course of 5 days. We'll continue telemetry monitoring. Will continue TRC nebulizations. Lower respiratory culture sample was contaminated, if able to send fresh sample. Repeat Chest x-ray did not show any overt pulmonary edema today. continue diuresing him with IV 40 mg Lasix daily. continue to follow pulmonology/cardiology recommendations. check magnesium and added on today's lab. Continue to monitor lites along with strict intakes and outputs, continue new leg elevation. Ehcocardiogram pending. #2 bilateral lower extremity edema. Edema has improved significantly after increase of Lasix dosage by the PCP. This could be secondary to diastolic heart failure as well as venous insufficiency. Continue IV diuresis and continue to monitor intakes and outputs. #3 elevated troponins. Troponins trended to 0.11.... 0.14..... 0.15..... 0.12, most likely thought to be secondary to demand ischemia. Cardiology on board, we'll continue to follow. We will continue Lipitor 10 mg daily for hypercholesterolemia, losartan 50 mg daily for hypertension, colchicine 300 g daily allopurinol 100 mg daily for gout, MiraLAX and Colace for constipation,synthyroid 0.025 mg for hypothyroidism , carvedilol 9.375 mg twice a day for rate control and Eliquis for anticoagulation for his atrial fibrillation. DVT prophylaxis with Eliquis. Patient is full code [id number] pain control with Tylenol. Problem List: 1. Benign essential hypertension 2. CHEST PAIN 3. CONGESTIVE HEART FAILURE 4. LUNG CANCER 5. Volume overload 6. Elevated troponin 7. Renal insufficiency 8. Acute and chronic respiratory failure with hypoxia Pain Ratin Pain Location: NA Pain Goal: Remain pain free Pain Plan: ct current mx Tomorrow's Labs & Rationales: lytes to monitoe ins and outs AUSTEN REID MD 05/06/16 1123: Attending Review Statement Attending Statement Attending MD Statement: examined this patient, discuss w/resident/PA/QUOTER, agreed w/resident/PA/QUOTER, reviewed EMR data (avail), discussed with nursing, discussed with case mgmt Attending Assessment/Plan: Complex 85 year old male with afib on eliquis, chronic systolic heart failure ( EF 35%), COPD, CAD and recent [place]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 He is here with acute shortness of breath questionable COPD versus CHF exacerbation. We have him on steroids and azithromycin with Lasix for CHF. 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 Appreciate pulmonary evaluation and will follow-up with Dr. Vidales as well.
--- NOTE | 2016-05-06 10:29 | Cons- Pulmonary ---
General Information and HPI Consulting Request Date of Consult: 05/06/16 Requested By: Dr. Sifuentes Reason for Consult: dyspnea Source of Information: patient Exam Limitations: no limitations History of Present Illness: 84 year old man. Admitted with dyspnea. History of lung cancer. CAT scan of the chest performed in April 2016 RUL lobectomy, RLL scarring. Multiple nodules with stability. . The test shows stable scarring in both lower lobes and he status post right upper lobectomy. His Does not wish to use CPAP therapy knowing risks. Dyspnea on exertion and now at rest. Recently stopped spiriva and resumed a few weeks ago. Cough has been persistent and worsening. White phlegm, no fevers, no chills, no travel history, no sick contacts. He has a nebulizer that he uses intermittently, however instructed to use it 3 times daily. Has had PFTs 07/2014 with mild obstruction, severe reduction in DLCO and borderline exertional desaturation. He also has had an evaluation of his swallowing which was normal to date. Has seen Dr. Fisher in the past. He has had a diagnosis of obstructive sleep apnea, however he has not used any equipment and is clear that he has no intention to get therapy and declines therapy for HORTENSIA knowing the risks. Intermittent leg swelling but is now on Lasix. On Eliquis for a.fib. Recent exacerbation of gout, now controlled. Creatinine 2 and is around baseline. Allergies/Medications Allergies: Coded Allergies: caffeine (HEADACHES 05/05/16) Home Med List: Albuterol Sulfate 2.5 MG/3 ML VIAL.NEB 1 Vial INH/SIXTO PRN RESPIRATORY ( Reported) Allopurinol 100 MG TABLET 1 TAB PO DAILY GOUT (Reported) Apixaban (Eliquis) 2.5 MG TAB 1 TAB PO Q12H BLOOD THINNER (Reported) Budesonide/Formoterol Fumarate (Symbicort 160-4.5 Mcg Inhaler) 10.2 GM HFA.AER.AD 2 PUF INH BIDP PRN BREATHING (Reported) Carvedilol (Coreg) 6.25 MG TABLET 1.5 TAB PO BID HEART (Reported) Cholecalciferol (Vitamin D3) (Vitamin D3) 1,000 UNIT CAPSULE 1 CAP PO BID SUPPLEMENT (Reported) Colchicine 0.6 MG TABLET 0.5 TAB PO DAILY GOUT Cyanocobalamin/FA/Pyridoxine (Folbic Tablet) 1 EACH TABLET 1 TAB PO DAILY SUPPLEMENT (Reported) Docusate Sodium (Colace) 100 MG CAPSULE 1 CAP PO DAILY STOOL SOFTENER ( Reported) Esomeprazole (Nexium) 40 MG CAPSULE.DR 1 CAP PO BID GI (Reported) Furosemide 40 MG TAB 1 TAB PO DAILY DIURETIC (Reported) Levothyroxine Sodium 25 MCG TABLET 1 TAB PO DAILY AC THYROID (Reported) Losartan Potassium (Cozaar) 50 MG TABLET 1 TAB PO DAILY BP (Reported) Polyethylene Glycol 3350 (Clearlax) 17 GRAM/DOSE POWDER 0.5 CAP PO DAILY GI ( Reported) Prednisone 5 MG TABLET 1 TAB PO BID GOUT (Reported) Please start taking on 04/14/16 Simvastatin (Zocor) 20 MG TAB 1 TAB PO QPM CHOLESTEROL (Reported) Current Medications: Current Medications Sig/Jaswinder Start time Last Medication Dose Route Stop Time Status Admin Acetaminophen 650 MG Q6-PRN PRN 05/05 2199 AC PO Albuterol Sulfate 3 ML ONCE ONE 05/05 2315 DC 05/05 INH 05/05 2316 2317 Allopurinol 100 MG DAILY 05/06 1000 AC 05/06 PO 1012 Apixaban 2.5 MG Q12 05/05 2200 AC 05/06 PO 1014 Atorvastatin Calcium 10 MG 1700 05/06 1700 AC PO Azithromycin 500 MG AT BEDTIME 05/05 2345 AC 05/06 Sodium Chloride 250 ML IV 0046 Budesonide/ 2 PUF BID 05/06 1000 AC 05/06 Formoterol Fumarate INH 1014 Carvedilol 0 .STK-MED ONE 05/05 2208 DC PO Carvedilol 0 .STK-MED ONE 05/05 2205 DC PO Carvedilol 9.375 MG BID 05/05 2200 AC 05/06 PO 1013 Colchicine 300 MCG DAILY 05/06 1000 AC 05/06 PO 1013 Docusate Sodium 100 MG DAILY 05/06 1000 AC 05/06 PO 1013 Furosemide 40 MG DAILY 05/06 1000 CAN PO Furosemide 0 .STK-MED ONE 05/06 0650 DC IV Furosemide 0 .STK-MED ONE 05/05 2234 DC IV Furosemide 40 MG BOLUS ONE 05/05 2230 CAN IV 05/05 2231 Furosemide 40 MG 7:30 AM, & 4:30 PM 05/05 2230 AC 05/06 IV 0700 Furosemide 0 .STK-MED ONE 05/05 1640 DC IV Furosemide 40 MG ONCE ONE 05/05 1615 DC 05/05 IV 05/05 1616 1644 Ipratropium [place] 2.5 ML ONCE ONE 05/05 2315 DC 05/05 INH 05/05 2316 2317 Levothyroxine Sodium 0.025 MG DAILY AC 05/06 0700 AC 05/06 PO 0700 Losartan Potassium 50 MG DAILY 05/06 1000 AC 05/06 PO 1013 Methylprednisolone 0 .STK-MED ONE 05/06 0650 DC .ROUTE Methylprednisolone 0 .STK-MED ONE 05/06 0008 DC .ROUTE Methylprednisolone 40 MG Q8 05/05 2345 AC 05/06 IV 0700 Omeprazole 40 MG DAILY AC 05/06 0700 AC 05/06 PO 0700 Omeprazole 0 .STK-MED ONE 05/06 0650 DC PO Polyethylene Glycol 17 GM DAILY 05/06 1000 AC PO Review of Systems Comments 18 point Review of Systems performed. Positive and negative pertinent findings are deliniated in the HPI. Otherwise the ROS is negative. 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 Ambulation: independent, cane, non-ambulatory IADLs Independent: shopping, housework, finances, food prep, telephone, transportation , medication admin. Exam & Diagnostic Data Last 24 Hrs of Vital Signs/I&O Vital Signs Date Time Temp Pulse Resp B/P Pulse O2 O2 Flow FiO2 Ox Delivery Rate 05/06 1013 87 141/65 05/06 1013 87 141/65 05/06 0610 96.6 95 16 134/68 97 Nasal 2.0L Cannula 05/06 0035 Nasal 2.0L Cannula 05/05 2316 97 Nasal 2.0L Cannula 05/05 2231 154 142/76 01/03 2128 154 22 142/76 97 Nasal 2.0L Cannula 05/05 1920 97.6 78 20 137/67 94 Room Air 05/05 1725 97.2 93 20 128/67 93 Room Air 05/05 1645 93 Room Air Room Air 05/05 1550 97.8 84 22 171/76 94 Room Air Intake & Output 05/06 1600 05/06 0800 05/06 0000 Intake Total 260 Output Total 425 600 Balance -165 -600 Intake, IV 260 Output, Urine 425 600 Patient 188 lb Weight Physical Exam Other Physical Findings: General - Alert, awake and oriented HEENT - normocephalic, atraumatic Cardiovascular - S1, S2 Lungs - bilateral bibasilar rhonchi Abdomen - soft, bowel sounds positive, no tenderness Extremities - edematous Last 48 Hrs of Labs/Pro: Laboratory Tests 05/06/16 1005: Troponin I Pending 05/06/16 0436: Troponin I 0.15 *H 05/06/16 0436: Anion Gap 15, Estimated GFR 32 L, BUN/Creatinine Ratio 32.0 H, CBC w Diff NO MAN DIFF REQ, RBC 4.01 L, MCV 93.4, MCH 31.7 H, RDW 13.6, MPV 9.1, Gran % 88.1 H, Lymphocytes % 8.3 L, Monocytes % 2.9, Eosinophils % 0.4, Basophils % 0.3, Absolute Granulocytes 8.6 H, Absolute Lymphocytes 0.8 L, Absolute Monocytes 0.3, Absolute Eosinophils 0, Absolute Basophils 0, PUBS MCHC 33.9 05/05/16 2245: pH 7.45, pCO2 40, pO2 95, HCO3 27, ABG O2 Sat (Measured) 97.0, Carboxyhemoglobin 0.6 L, O2 Concentration % 2L, O2 Delivery Method NC, Phlebotomy Draw Site RIGHT RADIAL 05/05/16 2226: Troponin I 0.14 *H 05/05/16 1636: Anion Gap 14, Estimated GFR 36 L, BUN/Creatinine Ratio 34.4 H, Glucose 122 H, Calcium 9.6, Magnesium 2.1, Total Bilirubin 0.8, AST 30, ALT 29, Alkaline Phosphatase 73, Troponin I 0.11 *H, [id number]-V-Cypvuyrrpaj Pept 3060 H, Total Protein 7.1, Albumin 3.8, Globulin 3.3, Albumin/Globulin Ratio 1.2, CBC w Diff NO MAN DIFF REQ, RBC 4.07 L, MCV 93.1, MCH 31.3 H, RDW 13.6, MPV 9.5, Gran % 79.0 H, Lymphocytes % 9.4 L, Monocytes % 9.3, Eosinophils % 1.9, Basophils % 0.4, Absolute Granulocytes 8.5 H, Absolute Lymphocytes 1.0 L, Absolute Monocytes 1.0 H, Absolute Eosinophils 0.2, Absolute Basophils 0, PUBS MCHC 33.7 Assessment/Plan Impression/Plan: Impression 85-year-old man with a history of COPD, atrial fibrillation, pulmonary nodules, obstructive sleep apnea and congestive heart failure. Presents with dyspnea likely related to congestive heart disease and COPD flare. Plan -Cardiology evaluation -Reduce Solu-Medrol to 40 mg IV every 12 -Continue Lasix and ins and outs monitoring and beta-blockade -Zithromax for 5 day course -Continue liquids and telemetry monitoring -TRC and nebs -can resume spiriva or can use atrovent and albuterol nebulized Thank you in allowing me to participate in the care of this patient. I will continue to follow along with the patient's progress. Please do not hesitate to call about any questions or issues. Consult Acknowledgment - Thank you for your consult request.
[2016-05-06 11:03] VITALS: BP 154/70
--- NOTE | 2016-05-06 11:36 | NUR ---
@1100-PT ARRIVED TO [facility] TELE HOLD FROM ER. PT ALERT AND ORIENTED, COOP. FOLLOWS COMMANDS. NEURO CHECKS [id number]. NOTED TO BE ON 2LNC. O2SAT 96%, WHEEZES AUSCULTATED. CONT ON IV LASIX BID AND IV SOLU Q8HRS. LRC OBTAINED AND SENT TO LAB. PACED/OCCASIONAL PVCS. HR 80S-100. BP STABLE. ECHO ORD. TROP 0.14, 0.15, 3RD SET WITH EKG DONE AT 1000 AND PENDING. REG DIET. URINAL PROVIDED. +2 BILAT ANKLES NOTED. ALPS IN PLACE. BUN/CREAT 64,2.0. WILL CONT TO MONITOR CLOSELY. AT BEDSIDE. CONT TO PROVIDE SUPPORT AND COMFORT NEEDED. CALL [facility] WITHIN REACH. 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 NEW TELFA DSG APPLIED TO BOTH SITES.
--- NOTE | 2016-05-06 11:51 | Cons- Cardiology ---
General Information and HPI Consulting Request Date of Consult: 05/06/16 Requested By: JEANETTE CARRERA,AUSTEN Dotson Reason for Consult: Worsening shortness of breath and lower extremity edema Source of Information: patient, family, old records History of Present Illness: Patient is an 85-year-old male well-known to me with history of underlying cardiac disease. He also has a history of multiple other issues. The patient has known atrial fibrillation. A pacemaker is in place. The patient was seen by his primary care physician yesterday and sent directly to the emergency room with wheezing, worsening shortness of breath and lower extremity edema. The patient had been in his usual state of health until this past week. His primary care physician increased his Lasix to twice daily for his gout. He also recently had his Ahlquist held for removal of a for head lesion and a lymph node biopsy which was performed at the same time. The patient says he was feeling in his usual state of health until about 24 hours ago. He became progressive more short of breath and had more lower extremity edema and called his primary physician for an appointment. As noted above he was centrically to the emergency him from there. In the emergency him, the patient was noted to be wheezing. His chest x-ray showed no overt heart failure. He did have increased lower extremity edema. The patient's rate was also elevated at that time. No other cardiovascular symptoms were noted. Allergies/Medications Allergies: Coded Allergies: caffeine (HEADACHES 05/05/16) Home Med List: Albuterol Sulfate 2.5 MG/3 ML VIAL.NEB 1 Vial INH/SIXTO PRN RESPIRATORY ( Reported) Allopurinol 100 MG TABLET 1 TAB PO DAILY GOUT (Reported) Apixaban (Eliquis) 2.5 MG TAB 1 TAB PO Q12H BLOOD THINNER (Reported) Budesonide/Formoterol Fumarate (Symbicort 160-4.5 Mcg Inhaler) 10.2 GM HFA.AER.AD 2 PUF INH BIDP PRN BREATHING (Reported) Carvedilol (Coreg) 6.25 MG TABLET 1.5 TAB PO BID HEART (Reported) Cholecalciferol (Vitamin D3) (Vitamin D3) 1,000 UNIT CAPSULE 1 CAP PO BID SUPPLEMENT (Reported) Colchicine 0.6 MG TABLET 0.5 TAB PO DAILY GOUT Cyanocobalamin/FA/Pyridoxine (Folbic Tablet) 1 EACH TABLET 1 TAB PO DAILY SUPPLEMENT (Reported) Docusate Sodium (Colace) 100 MG CAPSULE 1 CAP PO DAILY STOOL SOFTENER ( Reported) Esomeprazole (Nexium) 40 MG CAPSULE.DR 1 CAP PO BID GI (Reported) Furosemide 40 MG TAB 1 TAB PO DAILY DIURETIC (Reported) Levothyroxine Sodium 25 MCG TABLET 1 TAB PO DAILY AC THYROID (Reported) Losartan Potassium (Cozaar) 50 MG TABLET 1 TAB PO DAILY BP (Reported) Polyethylene Glycol 3350 (Clearlax) 17 GRAM/DOSE POWDER 0.5 CAP PO DAILY GI ( Reported) Prednisone 5 MG TABLET 1 TAB PO BID GOUT (Reported) Please start taking on 04/14/16 Simvastatin (Zocor) 20 MG TAB 1 TAB PO QPM CHOLESTEROL (Reported) Current Medications: Current Medications Sig/Jaswinder Start time Last Medication Dose Route Stop Time Status Admin Acetaminophen 650 MG Q6-PRN PRN 05/05 2200 AC PO Albuterol Sulfate 3 ML ONCE ONE 05/05 2315 DC 05/05 INH 05/05 2316 2317 Allopurinol 100 MG DAILY 05/06 1000 AC 05/06 PO 1012 Apixaban 2.5 MG Q12 05/05 2200 AC 05/06 PO 1014 Atorvastatin Calcium 10 MG 1700 05/06 1700 AC PO Azithromycin 500 MG AT BEDTIME 05/05 2345 AC 05/06 Sodium Chloride 250 ML IV 0046 Budesonide/ 2 PUF BID 05/06 1000 AC 05/06 Formoterol Fumarate INH 1014 Carvedilol 0 .STK-MED ONE 05/05 2208 DC PO Carvedilol 0 .STK-MED ONE 05/05 2205 DC PO Carvedilol 9.375 MG BID 05/05 2200 AC 05/06 PO 1013 Colchicine 300 MCG DAILY 05/06 1000 AC 05/06 PO 1013 Docusate Sodium 100 MG DAILY 05/06 1000 AC 05/06 PO 1013 Furosemide 40 MG DAILY 05/06 1000 CAN PO Furosemide 0 .STK-MED ONE 05/06 0650 DC IV Furosemide 0 .STK-MED ONE 05/05 2234 DC IV Furosemide 40 MG BOLUS ONE 05/05 2230 CAN IV 05/05 2231 Furosemide 40 MG 7:30 AM, & 4:30 PM 05/05 2230 AC 05/06 IV 0700 Furosemide 0 .STK-MED ONE 05/05 1640 DC IV Furosemide 40 MG ONCE ONE 05/05 1615 DC 05/05 IV 05/05 1616 1644 Ipratropium [place] 2.5 ML ONCE ONE 05/05 2315 DC 05/05 INH 05/05 2316 2317 Levothyroxine Sodium 0.025 MG DAILY AC 05/06 0700 AC 05/06 PO 0700 Losartan Potassium 50 MG DAILY 05/06 1000 AC 05/06 PO 1013 Methylprednisolone 0 .STK-MED ONE 05/06 0650 DC .ROUTE Methylprednisolone 0 .STK-MED ONE 05/06 0008 DC .ROUTE Methylprednisolone 40 MG Q8 05/05 2345 AC 05/06 IV 0700 Omeprazole 40 MG DAILY AC 05/06 0700 AC 05/06 PO 0700 Omeprazole 0 .STK-MED ONE 05/06 0650 DC PO Polyethylene Glycol 17 GM DAILY 05/06 1000 AC PO Past History Travel History Traveled to [place] past 21 day No Medical History Blood Transfusion Hx: No Neurological: STROKE EENT: NONE Cardiovascular: AFIB, CHF, CA, PACEMAKER, DEFIBRILAT HTN, HIGHCHOLESTEROL STEN Respiratory: LUNG CA Gastrointestinal: GERD Hepatic: NONE Renal: ? KIDNEY DISEASE-ELEVATED BUN/CREAT Musculoskeletal: gout, L KNEE REPLACEMENT Psychiatric: NONE Endocrine: hypothyroidism Blood Disorders: NONE Cancer(s): prostate cancer, RIGHT UPPER LOBE REMOVED CA AND PORTION OF RIGHT LOWER LOBE CANCEROUS GROWTH L [place] SUPERINTENDENT/Reproductive: NONE Surgical History Surgical History: PACEMAKER AND DEFIBRILATO LEFT CHEST Psychosocial History Where Do You Live? Home Services at Home: None Smoking Status: Former Smoker ETOH Use: denies use Illicit Drug Use: denies illicit drug use Functional Ability ADLs Independent: dressing, eating, toileting, bathing. Ambulation: independent, cane, non-ambulatory IADLs Independent: shopping, housework, finances, food prep, telephone, transportation , medication admin. Exam & Diagnostic Data Vital Signs and I&O Vital Signs Date Time Temp Pulse Resp B/P Pulse O2 O2 Flow FiO2 Ox Delivery Rate 05/06 1106 95 Nasal 2.0L Cannula 05/06 1103 97.6 103 20 154/70 96 Nasal 2.0L Cannula 05/06 1013 87 141/65 05/06 1013 87 141/65 05/06 0800 95 Nasal 2.0L Cannula 05/06 0610 96.6 95 16 134/68 97 Nasal 2.0L Cannula 05/06 0035 Nasal 2.0L Cannula 05/05 2317 97 Nasal 2.0L Cannula 05/05 2231 154 142/76 05/05 2128 154 22 142/76 97 Nasal 2.0L Cannula 05/05 1920 97.6 78 20 137/67 94 Room Air 05/05 1725 97.2 93 20 128/67 93 Room Air 05/05 1645 93 Room Air Room Air 05/05 1550 97.8 84 22 171/76 94 Room Air Intake & Output 05/06 1600 05/06 0800 05/06 0000 05/05 1600 05/05 0805/05 0000 Intake Total 260 Output Total 450 425 600 Balance -450 -165 -600 Intake, IV 260 Output, Urine 450 425 600 Patient 188 lb 188 lb Weight Physical Exam: General Appearance Alert, Oriented X3, Cooperative Skin normal HEENT normal Neck Supple, JVP elevated 2 cm at 45 +2 Carotid Pulse wo Bruit, No LAD Cardiovascular Normal S1, Normal S2, 2/6 systolic murmur Lungs bilateral expiratory wheezes noted on al the lung hernandez Abdomen Normal Bowel Sounds, Soft, No Tenderness, No Hepatospenomegaly Neurological Normal Speech, Sensation Intact Extremities pitting edema + 2 on ankles b/l Vascular Normal Pulses Labs/Pro Results: Laboratory Tests 05/06 05/06 05/06 1005 0436 0436 Chemistry Sodium (137 - 145 mmol/L) 142 Potassium (3.5 - 5.1 mmol/L) 4.6 Chloride (98 - 107 mmol/L) 95 L Carbon Dioxide (22 - 30 mmol/L) 31 H Anion Gap (5 - 16) 15 BUN (9 - 20 mg/dL) 64 H Creatinine (0.7 - 1.2 mg/dL) 2.0 H Estimated GFR (>60 ml/min) 32 L BUN/Creatinine Ratio (7 - 25 %) 32.0 H Troponin I (<0.11 ng/ml) 0.12 *H 0.15 *H Hematology CBC w Diff NO MAN DIFF REQ WBC (4.8 - 10.8 /CUMM) 9.8 RBC (4.70 - 6.10 /CUMM) 4.01 L Hgb (14.0 - 18.0 G/DL) 12.7 L Hct (42 - 52 %) 37.4 L MCV (80.0 - 94.0 FL) 93.4 MCH (27.0 - 31.0 PG) 31.7 H RDW (11.5 - 14.5 %) 13.6 Plt Count (130 - 400 /CUMM) 133 MPV (7.4 - 10.4 FL) 9.1 Gran % (42.2 - 75.2 %) 88.1 H Lymphocytes % (20.5 - 51.1 %) 8.3 L Monocytes % (1.7 - 9.3 %) 2.9 Eosinophils % (0 - 5 %) 0.4 Basophils % (0.0 - 2.0 %) 0.3 Absolute Granulocytes (1.4 - 6.5 /CUMM) 8.6 H Absolute Lymphocytes (1.2 - 3.4 /CUMM) 0.8 L Absolute Monocytes (0.10 - 0.60 /CUMM) 0.3 Absolute Eosinophils (0.0 - 0.7 /CUMM) 0 Absolute Basophils (0.0 - 0.2 /CUMM) 0 PUBS MCHC (33.0 - 37.0 G/DL) 33.9 05/05 05/05 2245 2226 Blood Gas pH (7.35 - 7.45 PH) 7.45 pCO2 (35 - 45 TORR) 40 pO2 (80 - 100 TORR) 95 HCO3 (21 - 28 MEQ/L) 27 ABG O2 Sat (Measured) (>96.0 %) 97.0 Carboxyhemoglobin (1.5 - 5.0 %) 0.6 L O2 Concentration % 2L O2 Delivery Method NC Chemistry Troponin I (<0.11 ng/ml) 0.14 *H Miscellaneous Phlebotomy Draw Site RIGHT RADIAL 05/05 1636 Chemistry Sodium (137 - 145 mmol/L) 139 Potassium (3.5 - 5.1 mmol/L) 4.6 Chloride (98 - 107 mmol/L) 96 L Carbon Dioxide (22 - 30 mmol/L) 29 Anion Gap (5 - 16) 14 BUN (9 - 20 mg/dL) 62 H Creatinine (0.7 - 1.2 mg/dL) 1.8 H Estimated GFR (>60 ml/min) 36 L BUN/Creatinine Ratio (7 - 25 %) 34.4 H Glucose (65 - 99 mg/dL) 122 H Calcium (8.4 - 10.2 mg/dL) 9.6 Magnesium (1.6 - 2.3 mg/dL) 2.1 Total Bilirubin (0.2 - 1.3 mg/dL) 0.8 AST (17 - 59 U/L) 30 ALT (21 - 72 U/L) 29 Alkaline Phosphatase (< 127 U/L) 73 Troponin I (<0.11 ng/ml) 0.11 *H [id number] Pept (<125 pg/mL) 3060 H Total Protein (6.3 - 8.2 g/dL) 7.1 Albumin (3.5 - 5.0 g/dL) 3.8 Globulin (1.9 - 4.2 gm/dL) 3.3 Albumin/Globulin Ratio (1.1 - 2.2 %) 1.2 Hematology CBC w Diff NO MAN DIFF REQ WBC (4.8 - 10.8 /CUMM) 10.8 RBC (4.70 - 6.10 /CUMM) 4.07 L Hgb (14.0 - 18.0 G/DL) 12.8 L Hct (42 - 52 %) 37.9 L MCV (80.0 - 94.0 FL) 93.1 MCH (27.0 - 31.0 PG) 31.3 H RDW (11.5 - 14.5 %) 13.6 Plt Count (130 - 400 /CUMM) 147 MPV (7.4 - 10.4 FL) 9.5 Gran % (42.2 - 75.2 %) 79.0 H Lymphocytes % (20.5 - 51.1 %) 9.4 L Monocytes % (1.7 - 9.3 %) 9.3 Eosinophils % (0 - 5 %) 1.9 Basophils % (0.0 - 2.0 %) 0.4 Absolute Granulocytes (1.4 - 6.5 /CUMM) 8.5 H Absolute Lymphocytes (1.2 - 3.4 /CUMM) 1.0 L Absolute Monocytes (0.10 - 0.60 /CUMM) 1.0 H Absolute Eosinophils (0.0 - 0.7 /CUMM) 0.2 Absolute Basophils (0.0 - 0.2 /CUMM) 0 PUBS MCHC (33.0 - 37.0 G/DL) 33.7 Diagnostic Data CXR Results IMPRESSION: Pulmonary hypoinflation. Persistent opacities within the left lung base which could reflect linear scarring or subsegmental atelectasis. Stable prominence of the cardiac silhouette, without overt pulmonary edema. Assessment/Plan Assessment/Plan Assessment: 1. Acute hypoxic respiratory failure with Worsening shortness of breath and lower extremity edema-I suspect that the patient's current status is related to underlying multifactorial issues including chronic renal insufficiency, underlying pulmonary disease with exacerbation of his bronchospastic disease, diastolic heart failure, pulmonary hypertension, venous insufficiency, etc. 2. Chronic renal insufficiency 3. Atrial fibrillation with permanent pacemaker placed 4. History of gout 5. Thyroidism Recommendations: -Continue gentle diuresis with IV Lasix as presently. -Close monitoring of BUN and creatinine and lites and magnesium -Follow-up echocardiogram to reassess left ventricular function and valvular function -Continue current pulmonary treatment as per Dr. Franco's recommendations -Reassess in 24 hours and further recommendations will be made at that time. Consult Acknowledgment - Thank you for your consult request.
[2016-05-06 16:00] VITALS: BP 92/50
[2016-05-07] VITALS: BP 118/60
--- NOTE | 2016-05-07 06:35 | PN- Housestaff ---
Assessment/Plan Assessment: This is a 85-year-old man who came in last night that is 05/05/2016 with chief complaint of worsening exertional dyspnea associated with cough, clear phlegm, referred to [facility] from his primary care practitioner's office for worsening shortness of breath, after no improvement with increased dose of Lasix. He has a significant past medical history of coronary artery disease status post 7 stents, TIA, diastolic and systolic heart failure, atrial fibrillation on Eliquis status post pacemaker, history of lung cancer and prostate cancer ( diagnosed in 2015 status post radiation and surgery), recent left eyebrow lesion status post removal ([place] cell carcinoma). He was afebrile with temperature of 97.8 on presentation, pulse of 84, blood pressure of 171/79 came down. On presentation patient was 92% on 2 L however he was intermittently desaturating to 88%. He remained afebrile overnight, he is currently 96% saturating on 2 L of nasal cannula, he has bilateral wheezing present diffusely, he has mild pedal edema bilaterally, mainly in the ankle area ,he has a negative fluid balance, cardiology - Dr. Vidales and cigar maker Dr. Franco on board. Problem List along with assessment and plan. #1 acute hypoxic respiratory failure (multifactorial) He came in with worsening shortness of breath, did not improve on increased dose of Lasix, pedal edema. Patient had PFTs in July 2014 which showed mild obstruction and severe reduction in DLCO month he does have a diagnosis of obstructive sleep apnea however he refrains from using CPAP and has never used it. The worsening shortness of breath could be secondary to COPD exacerbation, along with diastolic heart failure, pulmonary hypertension. continue IV Solu-Medrol, however but use it to 40 mg IV every 12. Continue azithromycin IV to complete entire course of 5 days. We'll continue telemetry monitoring. Will continue TRC nebulizations. Lower respiratory culture sample was contaminated, if able to send fresh sample. Repeat Chest x-ray did not show any overt pulmonary edema today. continue diuresing him with IV 40 mg Lasix daily. continue to follow pulmonology/cardiology recommendations. check magnesium and added on today's lab. Continue to monitor lites along with strict intakes and outputs, continue new leg elevation. Ehcocardiogram pending. #2 bilateral lower extremity edema. Edema has improved significantly after increase of Lasix dosage by the PCP. This could be secondary to diastolic heart failure as well as venous insufficiency. Continue IV diuresis and continue to monitor intakes and outputs. #3 elevated troponins. Troponins trended to 0.11.... 0.14..... 0.15..... 0.12, most likely thought to be secondary to demand ischemia. Cardiology on board, we'll continue to follow. We will continue Lipitor 10 mg daily for hypercholesterolemia, losartan 50 mg daily for hypertension, colchicine 300 g daily allopurinol 100 mg daily for gout, MiraLAX and Colace for constipation,synthyroid 0.025 mg for hypothyroidism , carvedilol 9.375 mg twice a day for rate control and Eliquis for anticoagulation for his atrial fibrillation. DVT prophylaxis with Eliquis. Patient is full code [id number] pain control with Tylenol.
--- NOTE | 2016-05-07 07:49 | PN- Housestaff ---
FABRIZIO CARRERA,ANIA 05/07/16 0748: Subjective Follow-up For: -Acute hypoxic respiratory failure -Diastolic CHF Other problems : -Chronic renal insufficiency -Atrial fibrillation withpermanent pacemaker placed -Gout -Hypothyroidism Complaints: no complaints Tele-Events Since Last Visit: Today he had an episode of tachycardia for around 1min. EKG after the event is back to baseline. Patient is totally asymptomatic. Otherwise no significant events. Subjective: I saw and examined the patient today morning. He is doing much better, currently on 2L nasal cannula, no cough/phlegm production/fever overnight. Review of Systems Constitutional: Reports: no symptoms, see HPI. Comments: ROS negative except the above. Objective Last 24 Hrs of Vital Signs/I&O Vital Signs Date Time Temp Pulse Resp B/P Pulse O2 O2 Flow FiO2 Ox Delivery Rate 05/07 1046 95 Nasal 1.0L Cannula 05/07 1006 88 116/60 05/07 1006 88 116/60 05/07 0800 Nasal 2.0L Cannula 05/07 0800 97.6 76 18 110/60 97 Nasal 2.0L Cannula 05/07 0000 97 Nasal 2.0L Cannula 05/07 0000 97.1 89 20 118/60 97 Nasal 2.0L Cannula 05/06 2149 88 122/58 05/06 2004 96 Nasal 2.0L Cannula 05/06 1999 96 Nasal 2.0L Cannula 05/06 1600 97 Nasal 2.0L Cannula 05/06 1600 97.8 78 20 92/50 97 Nasal 2.0L Cannula Intake & Output 05/07 1600 05/07 0800 05/07 0000 Intake Total 920 144 262 Output Total 500 200 725 Balance 420 -56 -463 Intake, IV 24 22 Intake, Oral 920 120 240 Number 0 0 Bowel Movements Output, Urine 500 200 725 Physical Exam General Appearance: Alert, Oriented X3, Cooperative, No Acute Distress Skin: No Rashes, No Breakdown HEENT: Atraumatic, PERRLA, EOMI Neck: Supple, No JVD Cardiovascular: Normal S1, Normal S2 Lungs: Diffuse wheezig evident. Abdomen: Normal Bowel Sounds, Soft, No Tenderness Neurological: Normal Speech Extremities: No Clubbing, No Cyanosis, No Edema Vascular: Pulses Symmetrical Current Medications: Current Medications Sig/Jaswinder Start time Last Medication Dose Route Stop Time Status Admin Acetaminophen 650 MG Q6-PRN PRN 05/05 2200 AC 05/06 PO 1342 Albuterol Sulfate 3 ML BID 05/06 2200 AC 05/07 INH 1043 Allopurinol 100 MG DAILY 05/06 1000 AC 05/07 PO 1007 Apixaban 2.5 MG Q12 05/05 2200 AC 05/07 PO 1006 Atorvastatin Calcium 10 MG 1700 05/06 1700 AC 05/06 PO 1545 Azithromycin 500 MG DAILY 05/06 1515 AC 05/07 PO 1007 Budesonide/ 2 PUF BID 05/06 1000 AC 05/07 Formoterol Fumarate INH 1007 Carvedilol 9.375 MG BID 05/05 2200 AC 05/07 PO 1006 Colchicine 300 MCG DAILY 05/06 1000 AC 05/07 PO 1005 Diclofenac Sodium 1 MARTIR 4 TIMES/DAY PRN 05/06 1500 AC 05/06 TOP 1544 Docusate Sodium 100 MG DAILY 05/06 1000 AC 05/07 PO 1005 Furosemide 40 MG DAILY 05/08 1000 AC IV Furosemide 40 MG 7:30 AM, & 4:30 PM 05/05 2230 DC 05/07 IV 0636 Levothyroxine Sodium 0.025 MG DAILY AC 05/06 0700 AC 05/07 PO 0557 Losartan Potassium 50 MG DAILY 05/06 1000 AC 05/07 PO 1006 Methylprednisolone 40 MG Q12 05/06 2200 DC 05/06 IV 2149 Omeprazole 40 MG DAILY AC 05/06 0700 AC 05/07 PO 0635 Polyethylene Glycol 17 GM DAILY 05/06 1000 AC PO Prednisone 10 MG DAILY 05/17 1000 AC PO 05/19 0959 Prednisone 20 MG DAILY 05/15 1000 AC PO 05/17 0959 Prednisone 30 MG DAILY 05/13 1000 AC PO 05/15 0959 Prednisone 40 MG DAILY 05/11 1000 AC PO 05/13 0959 Prednisone 50 MG DAILY 05/09 1000 AC PO 05/11 0959 Prednisone 60 MG DAILY 05/07 1000 AC 05/07 PO 05/09 0959 1150 Prednisone 60 MG ONCE 05/07 0945 CAN PO 05/19 0944 Ranolazine 500 MG BID 05/07 1107 CAN PO Last 24 Hrs of Lab/Pro Results Last 24 Hrs of Labs/Mics: Laboratory Tests 05/07/16 0521: Anion Gap 15, Estimated GFR 29 L, BUN/Creatinine Ratio 37.7 H, Magnesium 2.1 Lines/Diet/Fluids Lines: peripheral lines Assessment/Plan Assessment: This is a 85-year-old man who came in last night that is 05/05/2016 with chief complaint of worsening exertional dyspnea associated with cough, clear phlegm, referred to [facility] from his primary care practitioner's office for worsening shortness of breath, after no improvement with increased dose of Lasix. 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 He was afebrile with temperature of 97.8 on presentation, pulse of 84, blood pressure of 171/79 came down. On presentation patient was 92% on 2 L however he was intermittently desaturating to 88%. He remained afebrile overnight, he is currently 96% saturating on 2 L of nasal cannula, he has bilateral wheezing present diffusely, he has mild pedal edema bilaterally, mainly in the ankle area ,he has a negative fluid balance, cardiology - Dr. Vidales and lumber buyer Dr. Franco on board. Problem List along with assessment and plan. acute hypoxic respiratory failure (multifactorial) He came in with worsening shortness of breath, did not improve on increased dose of Lasix, pedal edema. Patient had PFTs in July 2014 which showed mild obstruction and severe reduction in DLCO month he does have a diagnosis of obstructive sleep apnea however he refrains from using CPAP and has never used it. The worsening shortness of breath could be secondary to COPD exacerbation, along with diastolic heart failure, pulmonary hypertension. * Discontinued solumedrol and started on prednisone 60mg. * Prednisone taper by reducing 10mg every 2days. * Continue azithromycin IV (5days) - today is day 2 * telemetry monitoring. * TRC nebulizations. * Started on lasix IV 40mg once a day. Ehcocardiogram : Shows very mild global hypokinesia present which appears to be worse in the inferoposterior segments. EF is approx 50%. A false tendon is present at the apex. Systolic function is similar to prior ECHO and no evidence of pul HTN bilateral lower extremity edema. Edema has improved significantly after increase of Lasix dosage by the PCP. This could be secondary to diastolic heart failure as well as venous insufficiency. Responded well to steroids. elevated troponins. Troponins trended to 0.11.... 0.14..... 0.15..... 0.12, most likely thought to be secondary to demand ischemia. Cardiology on board, we'll continue to follow. Chronic kidney disease * Creatinine increased from admission 1.8 to 2.0 to 2.2 * reduced Lasix to once a day * will recheck tomorrow We will continue Lipitor 10 mg daily for hypercholesterolemia, losartan 50 mg daily for hypertension, colchicine 300 g daily allopurinol 100 mg daily for gout, MiraLAX and Colace for constipation,synthyroid 0.025 mg for hypothyroidism , carvedilol 9.375 mg twice a day for rate control and Eliquis for anticoagulation for his atrial fibrillation. DVT prophylaxis with Eliquis. Patient is full code [id number] pain control with Tylenol. Problem List: 1. Gouty arthritis 2. Acute and chronic respiratory failure with hypoxia 3. CONGESTIVE HEART FAILURE 4. Elevated troponin Pain Ratin Pain Location: n/a Pain Goal: Remain pain free Pain Plan: Tyelnol PRN Tomorrow's Labs & Rationales: bep for monitoring electrolytes as patient is on IV lasix AUSTEN REID MD 05/07/16 1332: Attending MD Review Statement Attending Statement Attending MD Statement: examined this patient, discuss w/resident/PA/FINANCE ATTORNEY, agreed w/resident/PA/FINANCE ATTORNEY, reviewed EMR data (avail), discussed with nursing Attending Assessment/Plan: Patient is doing okay. Still wheezing slightly. His creatinine has stayed about the same at 2.2 and he does have advanced CKD. In addition to A. fib on Eliquis and COPD with chronic diastolic heart failure. Appreciate cardiology and pulmonary eval. Continue his by mouth steroids and antibiotics. I spoke to Dr. Vidales and we are going to decrease the Lasix to 40 IV daily. His usual dose is 40 mg orally once a day and Dr. Duarte recently bumped it up to twice a day. We'll keep him on the 40 daily, his EF is at 50% and will follow-up closely.
[2016-05-07 08:00] VITALS: BP 110/60
--- NOTE | 2016-05-07 09:58 | PN- Pulmonary ---
Subjective HPI/Critical Care Issues: Patient seen and examined. Afebrile and feeling better saturating 97% 2 L nasal cannula no nausea no vomiting no diarrhea or constipation no chest pain overall improving. Creatinine is 2.2. Objective Current Medications: Current Medications Sig/Jaswinder Start time Last Medication Dose Route Stop Time Status Admin Acetaminophen 650 MG .STK-MED ONE 05/06 1339 DC PO 05/06 1340 Acetaminophen 650 MG Q6-PRN PRN 05/05 2200 AC 05/06 PO 1342 Albuterol Sulfate 3 ML BID 05/06 2200 AC 05/06 INH 2005 Allopurinol 100 MG DAILY 05/06 1000 AC 05/06 PO 1012 Apixaban 2.5 MG Q12 05/05 2200 AC 05/06 PO 2149 Atorvastatin Calcium 10 MG 1700 05/06 1700 AC 05/06 PO 1545 Azithromycin 500 MG DAILY 05/06 1515 AC 05/06 PO 1802 Azithromycin 500 MG AT BEDTIME 05/05 2345 DC 05/06 Sodium Chloride 250 ML IV 0046 Budesonide/ 2 PUF BID 05/06 1000 AC 05/06 Formoterol Fumarate INH 2149 Carvedilol 9.375 MG BID 05/05 2200 AC 05/06 PO 2149 Colchicine 300 MCG DAILY 05/06 1000 AC 05/06 PO 1013 Diclofenac Sodium 1 MARTIR 4 TIMES/DAY PRN 05/06 1500 AC 05/06 TOP 1544 Docusate Sodium 100 MG DAILY 05/06 1000 AC 05/06 PO 1013 Furosemide 40 MG 7:30 AM, & 4:30 PM 05/05 2230 AC 05/07 IV 0636 Levothyroxine Sodium 0.025 MG DAILY AC 05/06 0700 AC 05/07 PO 0557 Losartan Potassium 50 MG DAILY 05/06 1000 AC 05/06 PO 1013 Methylprednisolone 40 MG Q12 05/06 2200 DC 05/06 IV 2149 Methylprednisolone 40 MG Q8 05/05 2345 DC 05/06 IV 0700 Omeprazole 40 MG DAILY AC 05/06 0700 AC 05/07 PO 0635 Polyethylene Glycol 17 GM DAILY 05/06 1000 AC PO Prednisone 60 MG ONCE 05/07 0945 UNVr PO 05/19 0944 Vital Signs & I&O Last 24 Hrs of Vitals and I&O: Vital Signs Date Time Temp Pulse Resp B/P Pulse O2 O2 Flow FiO2 Ox Delivery Rate 05/07 0800 Nasal 2.0L Cannula 05/07 08 97.6 76 18 110/60 97 Nasal 2.0L Cannula 05/07 0000 97 Nasal 2.0L Cannula 05/07 0000 97.1 89 20 118/60 97 Nasal 2.0L Cannula 05/06 2149 88 122/58 05/06 2005 96 Nasal 2.0L Cannula 05/06 1999 96 Nasal 2.0L Cannula 05/06 1600 97 Nasal 2.0L Cannula 05/06 1600 97.8 78 20 92/50 97 Nasal 2.0L Cannula 05/06 1235 Nasal 2.0L Cannula 05/06 1235 96 Nasal 2.0L Cannula 05/06 1106 95 Nasal 2.0L Cannula 05/06 1103 97.6 103 20 154/70 96 Nasal 2.0L Cannula 05/06 1013 87 141/65 05/06 1013 87 141/65 Intake & Output 05/07 1600 05/07 0800 05/07 0000 Intake Total 360 144 262 Output Total 300 200 725 Balance 60 -56 -463 Intake, IV 24 22 Intake, Oral 360 120 240 Number 0 0 Bowel Movements Output, Urine 300 200 725 Exam Other Physical Findings: General - Alert, awake and oriented HEENT - normocephalic, atraumatic Cardiovascular - S1, S2 Lungs - bilateral bibasilar rhonchi Abdomen - soft, bowel sounds positive, no tenderness Extremities - edematous Results Last 24 Hrs of Lab Results: Laboratory Tests 05/07/16 0521: Anion Gap 15, Estimated GFR 29 L, BUN/Creatinine Ratio 37.7 H, Magnesium 2.1 05/06/16 1005: Magnesium 2.0, Troponin I 0.12 *H Impression/Plan Impression/Plan Impression/Plan: Impression 85-year-old man with a history of COPD, atrial fibrillation, pulmonary nodules, obstructive sleep apnea and congestive heart failure. Presents with dyspnea likely related to congestive heart disease and COPD flare. Plan -Cardiology evaluation appreciated -Discontinue Solu-Medrol and begin prednisone taper by 10 mg every 2 days starting from 60 mg -Continue Lasix and ins and outs monitoring and beta-blockade -Zithromax for 5 day course -Continue liquids and telemetry monitoring -TRC and nebs -can resume spiriva or can use atrovent and albuterol nebulized Thank you in allowing me to participate in the care of this patient. I will continue to follow along with the patient's progress. Please do not hesitate to call about any questions or issues. Tele hold
--- NOTE | 2016-05-07 10:17 | ECHOCARDIOGRAM REPORT ---
HESHAM CARLOS Age: 85 : 1930 Gender: M Exam Date: 05/06/2016 19:30 Exam Location: [facility] Ht (in): 66 Wt (lb): 187 BSA: 2.01 BP: 92 / 50 Ordering Physician: SHAUN BURGOS MD Referring Physician: Obey Vidales MD Technologist: Nikia Morrow [facility] [place] Room Number: 101 Indications: CHEST PAIN Rhythm: Atrial fibrillation Technical Quality: Fair, Technically difficult study FINDINGS Left Ventricle Normal size left ventricle. Hypokinetic inferior wall. Hypokinetic posterior wall. Mildly abnormal left ventricular ejection fraction estimated at 45-50%. Right Ventricle Right ventricle not well visualized, grossly normal. Right Atrium Normal right atrial size. Left Atrium Moderate left atrial dilatation. Mitral Valve Mitral valve thickened. Mild mitral annular calcification. Mild mitral regurgitation. Aortic Valve Trileaflet aortic valve. Diffuse thickening (sclerosis) of the aortic valve cusps without reduced excursion. No aortic stenosis. [id number] aortic regurgitation. Tricuspid Valve Tricuspid valve not well visualized, grossly normal. Mild tricuspid regurgitation. Right ventricular systolic pressure estimated at 42 mmHg. Pulmonic Valve Pulmonic valve not well visualized, grossly normal. Pericardium No pericardial effusion. Great Vessels Aortic root and proximal ascending aorta not well visualized, grossly normal. CONCLUSIONS 1. Mild to moderate aortic sclerosis is present with mild to moderate aortic insufficiency. 2. Mitral leaflet thickening is present with mild annular calcification and mild mitral insufficiency. Moderate left atrial enlargement is present. 3. No significant pericardial fluid was detected on this study. 4. The left ventricular chamber size is normal. There is very mild global hypokinesia present which appears to be worse in the inferoposterior segments. The ejection fraction is approximately 50%. A false tendon is present at the apex. 5. Mild tricuspid insufficiency is present with no evidence of significant pulmonary hypertension. The estimated right ventricular systolic pressure is 42 mmHg. 6. Pacemaker wires are present in the right heart chambers. 7. When compared with the prior echocardiogram, the left ventricular systolic function is approximately the same. Obey Vidales M.D. (Electronically Signed) Final Date: 07 May 2016 10:17 MEASUREMENTS (Male / Female) Normal Values 2D ECHO LV Diastolic Diameter PLAX 3.3 cm 4.2 - 5.9 / 3.9 - 5.3 cm LV Systolic Diameter PLAX 2.7 cm 2.1 - 4.0 cm LV Fractional Shortening PLAX 18.2 % 25 - 46 % LV Ejection Fraction 2D Teich 38.8 % IVS Diastolic Thickness 1.0 cm LVPW Diastolic Thickness 1.1 cm LV Relative Wall Thickness 0.6 RV Internal Dim ED PLAX 2.6 cm 1.9 - 3.8 cm LVOT Diameter 2.0 cm Aortic Root Diameter 3.2 cm LA Systolic Diameter LX 5.8 cm 3.0 - 4.0 / 2.7 - 3.8 cm LA Volume 68.0 cm 18 - 58 / 22 - 52 cm Ascending Aorta Diameter 3.0 cm DOPPLER AV Peak Velocity 130.0 cm/s AV Peak Gradient 6.8 mmHg AV Mean Velocity 85.4 cm/s AV Mean Gradient 3.0 mmHg AV Velocity Time Integral 24.0 cm AI Deceleration [place] 270.0 cm/s AI Peak Velocity 402.0 cm/s AI Pressure Half Time 436.0 ms AI Peak Gradient 64.6 mmHg LVOT Peak Velocity 79.0 cm/s LVOT Peak Gradient 2.5 mmHg LVOT Mean Velocity 52.0 cm/s LVOT Mean Gradient 1.0 mmHg LVOT Velocity Time Integral 14.7 cm LVOT Stroke Volume 46.2 cm AV Area Cont Eq vti 1.9 cm AV Area Cont Eq pk 1.9 cm MV Peak Velocity 105.0 cm/s MV Peak Gradient 4.4 mmHg MV Mean Velocity 54.8 cm/s MV Mean Gradient 1.0 mmHg Mitral E Point Velocity 101.0 cm/s MV PHT Velocity 109.0 cm/s MV Deceleration [place] 527.0 cm/s MV Pressure Half Time 62.0 ms MV Area PHT 3.5 cm MV Deceleration Time 119.0 ms TR Peak Velocity 284.0 cm/s TR Peak Gradient 32.3 mmHg Right Atrial Pressure 10.0 mmHg Pulmonary Artery Systolic Pressu 42.3 mmHg Right Ventricular Systolic Press 42.3 mmHg PV Peak Velocity 108.0 cm/s PV Peak Gradient 4.7 mmHg PV Mean Velocity 71.5 cm/s PV Mean Gradient 2.0 mmHg PV Velocity Time Integral 16.7 cm LV E' Lateral Velocity 10.9 cm/s Mitral E to LV E' Lateral Ratio 9.3 LV E' Septal Velocity 5.4 cm/s Mitral E to LV E' Septal Ratio 18.6
--- NOTE | 2016-05-07 11:13 | NUR ---
Noted on tele monitor, V Tach. Patient reports no complaints, just finished Nebulizer treatment. Office Equipment Technician Dr Upton #[id number] notified, in to see patient. EKG ordered. Will continue to monitor.
--- NOTE | 2016-05-07 15:47 | PN- Cardiology ---
Subjective Subjective: The patient seems to be doing somewhat better today. He denies any cardiac symptoms. His breathing has improved. His lower extremity edema is improving. He continues to have expiratory wheezing however. Objective Vital Signs and I&Os Vital Signs Date Time Temp Pulse Resp B/P Pulse O2 O2 Flow FiO2 Ox Delivery Rate 05/07 1046 95 Nasal 1.0L Cannula 05/07 1006 88 116/60 05/07 1006 88 116/60 05/07 0800 Nasal 2.0L Cannula 05/07 08 97.6 76 18 110/60 97 Nasal 2.0L Cannula 05/07 0000 97 Nasal 2.0L Cannula 05/07 0000 97.1 89 20 118/60 97 Nasal 2.0L Cannula 05/06 2149 88 122/58 05/06 2004 96 Nasal 2.0L Cannula 05/06 1999 96 Nasal 2.0L Cannula 05/06 1600 97 Nasal 2.0L Cannula 05/06 1600 97.8 78 20 92/50 97 Nasal 2.0L Cannula Intake & Output 05/07 1600 05/07 0805/07 0000 05/06 1600 05/06 0800 05/06 0000 Intake Total 920 144 262 300 260 Output Total 500 200 725 850 425 600 Balance 420 -56 -463 -550 -165 -600 Intake, IV 24 22 0 260 Intake, Oral 920 120 240 300 Number 0 0 0 Bowel Movements Output, Urine 500 200 725 850 425 600 Patient 188 lb Weight Current Medications: Current Medications Sig/Jaswinder Start time Last Medication Dose Route Stop Time Status Admin Acetaminophen 650 MG Q6-PRN PRN 05/05 2199 AC 05/06 PO 1342 Albuterol Sulfate 3 ML BID 05/06 2199 AC 05/07 INH 1043 Allopurinol 100 MG DAILY 05/06 1000 AC 05/07 PO 1007 Apixaban 2.5 MG Q12 05/05 2200 AC 05/07 PO 1006 Atorvastatin Calcium 10 MG 1700 05/06 1700 AC 05/06 PO 1545 Azithromycin 500 MG DAILY 05/06 1515 AC 05/07 PO 1007 Budesonide/ 2 PUF BID 05/06 1000 AC 05/07 Formoterol Fumarate INH 1007 Carvedilol 9.375 MG BID 05/05 2200 AC 05/07 PO 1006 Colchicine 300 MCG DAILY 05/06 1000 AC 05/07 PO 1005 Diclofenac Sodium 1 MARTIR 4 TIMES/DAY PRN 05/06 1500 AC 05/06 TOP 1544 Docusate Sodium 100 MG DAILY 05/06 1000 AC 05/07 PO 1005 Furosemide 40 MG DAILY 05/08 1000 AC IV Furosemide 40 MG 7:30 AM, & 4:30 PM 05/05 2230 DC 05/07 IV 0636 Levothyroxine Sodium 0.025 MG DAILY AC 05/06 0700 AC 05/07 PO 0557 Losartan Potassium 50 MG DAILY 05/06 1000 AC 05/07 PO 1006 Methylprednisolone 40 MG Q12 05/06 2200 DC 05/06 IV 2149 Omeprazole 40 MG DAILY AC 05/06 0700 AC 05/07 PO 0635 Polyethylene Glycol 17 GM DAILY 05/06 1000 AC PO Prednisone 10 MG DAILY 05/17 1000 AC PO 05/19 0959 Prednisone 20 MG DAILY 05/15 1000 AC PO 05/17 0959 Prednisone 30 MG DAILY 05/13 1000 AC PO 05/15 0959 Prednisone 40 MG DAILY 05/11 1000 AC PO 05/13 0959 Prednisone 50 MG DAILY 05/09 1000 AC PO 05/11 0959 Prednisone 60 MG DAILY 05/07 1000 AC 05/07 PO 05/09 0959 1150 Prednisone 60 MG ONCE 05/07 0945 CAN PO 05/19 0944 Ranolazine 500 MG BID 05/07 1107 CAN PO Results Last 48 Hrs of Labs/Mics: Laboratory Tests 05/07/16 0521: Anion Gap 15, Estimated GFR 29 L, BUN/Creatinine Ratio 37.7 H, Magnesium 2.1 05/06/16 1005: Magnesium 2.0, Troponin I 0.12 *H 05/06/16 0436: Troponin I 0.15 *H 05/06/16 0436: Anion Gap 15, Estimated GFR 32 L, BUN/Creatinine Ratio 32.0 H, CBC w Diff NO MAN DIFF REQ, RBC 4.01 L, MCV 93.4, MCH 31.7 H, RDW 13.6, MPV 9.1, Gran % 88.1 H, Lymphocytes % 8.3 L, Monocytes % 2.9, Eosinophils % 0.4, Basophils % 0.3, Absolute Granulocytes 8.6 H, Absolute Lymphocytes 0.8 L, Absolute Monocytes 0.3, Absolute Eosinophils 0, Absolute Basophils 0, PUBS MCHC 33.9 05/05/16 2245: pH 7.45, pCO2 40, pO2 95, HCO3 27, ABG O2 Sat (Measured) 97.0, Carboxyhemoglobin 0.6 L, O2 Concentration % 2L, O2 Delivery Method NC, Phlebotomy Draw Site RIGHT RADIAL 05/05/16 2226: Troponin I 0.14 *H 05/05/16 1636: Anion Gap 14, Estimated GFR 36 L, BUN/Creatinine Ratio 34.4 H, Glucose 122 H, Calcium 9.6, Magnesium 2.1, Total Bilirubin 0.8, AST 30, ALT 29, Alkaline Phosphatase 73, Troponin I 0.11 *H, [id number] Pept 3060 H, Total Protein 7.1, Albumin 3.8, Globulin 3.3, Albumin/Globulin Ratio 1.2, CBC w Diff NO MAN DIFF REQ, RBC 4.07 L, MCV 93.1, MCH 31.3 H, RDW 13.6, MPV 9.5, Gran % 79.0 H, Lymphocytes % 9.4 L, Monocytes % 9.3, Eosinophils % 1.9, Basophils % 0.4, Absolute Granulocytes 8.5 H, Absolute Lymphocytes 1.0 L, Absolute Monocytes 1.0 H, Absolute Eosinophils 0.2, Absolute Basophils 0, PUBS MCHC 33.7 Microbiology 05/06 1040 UPPER RESP: Surveillance Culture - COMP 05/06 1040 GI: Surveillance Culture - COMP Assessment/Plan Assessment/Plan Assessment: 1. Acute hypoxic respiratory failure with Worsening shortness of breath and lower extremity edema-I suspect that the patient's current status is related to underlying multifactorial issues including chronic renal insufficiency, underlying pulmonary disease with exacerbation of his bronchospastic disease, diastolic heart failure, pulmonary hypertension, venous insufficiency, etc. 2. Chronic renal insufficiency 3. Atrial fibrillation with permanent pacemaker placed 4. History of gout 5. Thyroidism Recommendations: -Continue current pulmonary treatment as per Dr. Franco -Continue IV Lasix once daily today -Follow-up laboratories in 24 hours -Further plans at that time Continue telemetry? Yes
[2016-05-07 16:00] VITALS: BP 102/50
--- NOTE | 2016-05-07 17:49 | Patient Discharge Instructions ---
Discharge Instructions General Discharge Information You were seen/treated for: CHF exacerbation You had these procedures: none Special Instructions: Please follow up with your PCP Acute Coronary Syndrome Inclusion Criteria At DC or during hospital stay patient has or had the following: ACS DIAGNOSIS No Discharge Core Measures Meds if any: Prescribed or Continued at Discharge Meds if any: NOT Prescribed or Continued at Discharge Congestive Heart Failure Inclusion Criteria At DC or during hospital stay patient has or had the following: CHF DIAGNOSIS No Discharge Core Measures Meds if any: Prescribed or Continued at Discharge Meds if any: NOT Prescribed or Continued at Discharge Cerebrovascular accident Inclusion Criteria At DC or during hospital stay patient has or had the following: CVA/TIA Diagnosis No Discharge Core Measures Meds if any: Prescribed or Continued at Discharge Meds if any: NOT Prescribed or Continued at Discharge Venous thromboembolism Inclusion Criteria VTE Diagnosis No VTE Type NONE VTE Confirmed by (Test) NONE Discharge Core Measures - Per Current guidelines, there needs to be overlap - treatment for the first 5 days of Warfarin therapy. - If discharged on Warfarin prior to 5 days of - overlap therapy, the patient will need to be - assessed for post discharge needs including - *Post discharge parental anticoagulation - *Warfarin and/or parental anticoagulation education - *Follow up date to check INR post discharge At least 5 days overlap therapy as Inpatient No Meds if any: Prescribed or Continued at Discharge Note: Overlap Therapy is Warfarin and Anticoagulant Meds if any: NOT Prescribed or Continued at Discharge
[2016-05-07 22:00] VITALS: BP 126/64
[2016-05-08 08:00] VITALS: BP 132/64
--- NOTE | 2016-05-08 08:25 | PN- Housestaff ---
FABRIZIO CARRERA,ANIA 05/08/16 0825: Subjective Follow-up For: -Acute hypoxic respiratory failure -Diastolic CHF Other problems : -Chronic renal insufficiency -Atrial fibrillation withpermanent pacemaker placed -Gout -Hypothyroidism Complaints: no complaints Tele-Events Since Last Visit: HR 67-80 bpm, no significant overnight events. Subjective: I saw and examined the patient today morning. He feels much better. He had an episode of aggressive cough with whitish phlegm production in the morning, However feels better now. received respiratory therapy today morning. He is able to walk around without any shortness of breath. He denies any difficulty with urination, bowel movements. His last bowel movement was yesterday morning. Review of Systems Constitutional: Reports: no symptoms, see HPI. Comments: ROS negative except as above. Objective Last 24 Hrs of Vital Signs/I&O Vital Signs Date Time Temp Pulse Resp B/P Pulse O2 O2 Flow FiO2 Ox Delivery Rate 05/08 1600 97.2 75 22 134/68 Room Air 05/08 0916 93 Room Air Room Air 05/08 0859 90 128/64 05/08 0859 128/64 05/08 08 98 Nasal 1.0L Cannula 05/08 08 98.7 91 20 132/64 98 Nasal 1.0L Cannula 05/08 0000 Nasal 1.0L Cannula 05/070 97.7 64 24 126/64 94 Nasal 1.0L Cannula 05/07 2101 64 126/64 05/07 2010 94 Nasal 1.0L Cannula Intake & Output 05/08 1600 05/08 0800 05/08 0000 Intake Total 550 150 500 Output Total 450 250 500 Balance 100 -100 0 Intake, IV 0 Intake, Oral 550 150 500 Number 2 0 Bowel Movements Output, Urine 450 250 500 Physical Exam General Appearance: Alert, Oriented X3, Cooperative, No Acute Distress Skin: No Rashes, No Breakdown HEENT: Atraumatic, PERRLA Neck: Supple, No JVD Cardiovascular: Normal S1, Normal S2 Lungs: Normal Air Movement, diffuse wheezing evident Abdomen: Normal Bowel Sounds, Soft, No Tenderness Neurological: Normal Gait, Normal Speech, Strength at 5/5 X4 Ext, Normal Tone Extremities: No Clubbing, No Cyanosis, No Edema Vascular: Normal Pulses, Pulses Symmetrical Current Medications: Current Medications Sig/Jaswinder Start time Last Medication Dose Route Stop Time Status Admin Acetaminophen 650 MG Q6-PRN PRN 05/05 2200 AC 05/06 PO 1342 Albuterol Sulfate 3 ML BID 05/06 2200 AC 05/08 INH 0915 Allopurinol 100 MG DAILY 05/06 1000 AC 05/08 PO 0858 Apixaban 2.5 MG Q12 05/05 2200 AC 05/08 PO 0858 Atorvastatin Calcium 10 MG 1700 05/06 1700 AC 05/08 PO 1627 Azithromycin 500 MG DAILY 05/06 1515 AC 05/08 PO 0859 Budesonide/ 2 PUF BID 05/06 1000 AC 05/08 Formoterol Fumarate INH 0900 Carvedilol 9.375 MG BID 05/05 2200 AC 05/08 PO 0859 Colchicine 300 MCG DAILY 05/06 1000 AC 05/08 PO 0900 Diclofenac Sodium 1 MARTIR 4 TIMES/DAY PRN 05/06 1500 AC 05/06 TOP 1544 Docusate Sodium 100 MG DAILY 05/06 1000 AC 05/08 PO 0858 Furosemide 40 MG DAILY 05/08 1000 DC 05/08 IV 0904 Levothyroxine Sodium 0.025 MG DAILY AC 05/06 0700 AC 05/08 PO 0546 Losartan Potassium 50 MG DAILY 05/06 1000 AC 05/08 PO 0859 Omeprazole 40 MG DAILY AC 05/06 0700 AC 05/08 PO 0546 Polyethylene Glycol 17 GM DAILY 05/06 1000 AC PO Prednisone 10 MG DAILY 05/17 1000 AC PO 05/19 0959 Prednisone 20 MG DAILY 05/15 1000 AC PO 05/17 0959 Prednisone 30 MG DAILY 05/13 1000 AC PO 05/15 0959 Prednisone 40 MG DAILY 05/11 1000 AC PO 05/13 0959 Prednisone 50 MG DAILY 05/09 1000 AC PO 05/11 0959 Prednisone 60 MG DAILY 05/07 1000 AC 05/08 PO 05/09 0959 0859 Last 24 Hrs of Lab/Pro Results Last 24 Hrs of Labs/Mics: Laboratory Tests 05/08/16 0600: Anion Gap 14, Estimated GFR 29 L, BUN/Creatinine Ratio 44.5 H, Magnesium 2.4 H Assessment/Plan Assessment: This is a 85-year-old man who came in last night that is 05/05/2016 with chief complaint of worsening exertional dyspnea associated with cough, clear phlegm, referred to [facility] from his primary care practitioner's office for worsening shortness of breath, after no improvement with increased dose of Lasix. 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 He was afebrile with temperature of 97.8 on presentation, pulse of 84, blood pressure of 171/79 came down. On presentation patient was 92% on 2 L however he was intermittently desaturating to 88%. He remained afebrile overnight, he is currently 96% saturating on 2 L of nasal cannula, he has bilateral wheezing present diffusely, he has mild pedal edema bilaterally, mainly in the ankle area ,he has a negative fluid balance, cardiology - Dr. Vidales and supervisor [employer] Dr. Franco on board. Problem List along with assessment and plan. acute hypoxic respiratory failure (multifactorial) He came in with worsening shortness of breath, did not improve on increased dose of Lasix, pedal edema. Patient had PFTs in July 2014 which showed mild obstruction and severe reduction in DLCO month he does have a diagnosis of obstructive sleep apnea however he refrains from using CPAP and has never used it. The worsening shortness of breath could be secondary to COPD exacerbation, along with diastolic heart failure, pulmonary hypertension. * Prednisone taper with 60 mg 1, 502, 402, 302, 202, 102. * Prednisone taper by reducing 10mg every 2days. * Continue azithromycin IV (5days) - today is day 3 * telemetry monitoring. * TRC nebulizations. * Started on lasix IV 40mg once a day. * Able to walk around without any shortness of breath. * At this point it seems no need of physical therapy consultation Ehcocardiogram : Shows very mild global hypokinesia present which appears to be worse in the inferoposterior segments. EF is approx 50%. A false tendon is present at the apex. Systolic function is similar to prior ECHO and no evidence of pul HTN bilateral lower extremity edema. Edema has improved significantly after increase of Lasix dosage by the PCP. This could be secondary to diastolic heart failure as well as venous insufficiency. elevated troponins. Troponins trended to 0.11.... 0.14..... 0.15..... 0.12, most likely thought to be secondary to demand ischemia. Cardiology on board, we'll continue to follow. Chronic kidney disease * Creatinine increased from admission 1.8 to 2.0 to 2.2 * Today his creatinine remained stable at 2.2 but his BUN raised to 98 * Held the Lasix for now. * will recheck tomorrow We will continue Lipitor 10 mg daily for hypercholesterolemia, losartan 50 mg daily for hypertension, colchicine 300 g daily allopurinol 100 mg daily for gout, MiraLAX and Colace for constipation,synthyroid 0.025 mg for hypothyroidism , carvedilol 9.375 mg twice a day for rate control and Eliquis for anticoagulation for his atrial fibrillation. DVT prophylaxis with Eliquis. Patient is full code [id number] pain control with Tylenol. Problem List: 1. Volume overload 2. Elevated troponin 3. Acute and chronic respiratory failure with hypoxia 4. Gouty arthritis 5. CONGESTIVE HEART FAILURE Pain Ratin Pain Location: Not applicable Pain Goal: Remain pain free Pain Plan: Tylenol when necessary Tomorrow's Labs & Rationales: BEP and magnesium for tomorrow to monitor BUN and creatinine AUSTEN REID MD 05/08/16 1400: Attending MD Review Statement Attending Statement Attending MD Statement: examined this patient, discuss w/resident/PA/CHEMISTRY PROFESSOR, agreed w/resident/PA/CHEMISTRY PROFESSOR, reviewed EMR data (avail), discussed with nursing Attending Assessment/Plan: Patient is walking around in his room. His edema is better. His BUN is up to 98 his creatinine stable at 2.2. He is an 85-year-old with COPD, chronic diastolic/mild systolic heart failure with an EF of 45-50%. Dr. Duarte at the recently increased his outpatient Lasix dose to 40 twice a day. He is here with a multifactorial acute hypoxemic respiratory failure. He is on steroids and being treated for a COPD exacerbation and followed by Dr. Franco. Today given the elevated BUN , hold the Lasix and follow the BUN and creatinine closely. Ambulate him and follow-up.
--- NOTE | 2016-05-08 10:24 | PN- Pulmonary ---
Subjective HPI/Critical Care Issues: Patient seen and examined. Afebrile and feeling better saturating 98% 1 L nasal cannula no nausea no vomiting no diarrhea or constipation no chest pain overall improving. Creatinine is 2.2. Objective Current Medications: Current Medications Sig/Jaswinder Start time Last Medication Dose Route Stop Time Status Admin Acetaminophen 650 MG Q6-PRN PRN 05/05 2200 AC 05/06 PO 1342 Albuterol Sulfate 3 ML BID 05/06 2200 AC 05/08 INH 0915 Allopurinol 100 MG DAILY 05/06 1000 AC 05/08 PO 0858 Apixaban 2.5 MG Q12 05/05 2200 AC 05/08 PO 0858 Atorvastatin Calcium 10 MG 1700 05/06 1700 AC 05/07 PO 1655 Azithromycin 500 MG DAILY 05/06 1515 AC 05/08 PO 0859 Budesonide/ 2 PUF BID 05/06 1000 AC 05/08 Formoterol Fumarate INH 0900 Carvedilol 9.375 MG BID 05/05 2200 AC 05/08 PO 0859 Colchicine 300 MCG DAILY 05/06 1000 AC 05/08 PO 0900 Diclofenac Sodium 1 MARTIR 4 TIMES/DAY PRN 05/06 1500 AC 05/06 TOP 1544 Docusate Sodium 100 MG DAILY 05/06 1000 AC 05/08 PO 0858 Furosemide 40 MG DAILY 05/08 1000 AC 05/08 IV 0904 Furosemide 40 MG 7:30 AM, & 4:30 PM 05/05 2230 DC 05/07 IV 0636 Levothyroxine Sodium 0.025 MG DAILY AC 05/06 0700 AC 05/08 PO 0546 Losartan Potassium 50 MG DAILY 05/06 1000 AC 05/08 PO 0859 Omeprazole 40 MG DAILY AC 05/06 0700 AC 05/08 PO 0546 Polyethylene Glycol 17 GM DAILY 05/06 1000 AC PO Prednisone 10 MG DAILY 05/17 1000 AC PO 05/19 0959 Prednisone 20 MG DAILY 05/15 1000 AC PO 05/17 0959 Prednisone 30 MG DAILY 05/13 1000 AC PO 05/15 0959 Prednisone 40 MG DAILY 05/11 1000 AC PO 05/13 0959 Prednisone 50 MG DAILY 05/09 1000 AC PO 05/11 0959 Prednisone 60 MG DAILY 05/07 1000 AC 05/08 PO 05/09 0959 0859 Ranolazine 500 MG BID 05/07 1107 CAN PO Vital Signs & I&O Last 24 Hrs of Vitals and I&O: Vital Signs Date Time Temp Pulse Resp B/P Pulse O2 O2 Flow FiO2 Ox Delivery Rate 05/08 0916 93 Room Air Room Air 05/08 0859 90 128/64 05/08 0859 128/64 05/08 0800 98.7 91 20 132/64 98 Nasal 1.0L Cannula 05/08 0000 Nasal 1.0L Cannula 05/07 2200 97.7 64 24 126/64 94 Nasal 1.0L Cannula 05/07 2102 64 126/64 05/07 2010 94 Nasal 1.0L Cannula 05/07 1600 96 Nasal 2.0L Cannula 05/07 1599 97.9 82 22 102/50 96 Nasal 2.0L Cannula 05/07 1046 95 Nasal 1.0L Cannula Intake & Output 05/08 1600 05/08 0800 05/08 0000 Intake Total 150 500 Output Total 250 500 Balance -100 0 Intake, IV 0 Intake, Oral 150 500 Number 0 Bowel Movements Output, Urine 250 500 Exam Other Physical Findings: General - Alert, awake and oriented HEENT - normocephalic, atraumatic Cardiovascular - S1, S2 Lungs - bilateral bibasilar rhonchi Abdomen - soft, bowel sounds positive, no tenderness Extremities - edematous Results Last 24 Hrs of Lab Results: Laboratory Tests 05/08/16 0600: Anion Gap 14, Estimated GFR 29 L, BUN/Creatinine Ratio 44.5 H, Magnesium 2.4 H Impression/Plan Impression/Plan Impression/Plan: Impression 85-year-old man with a history of COPD, atrial fibrillation, pulmonary nodules, obstructive sleep apnea and congestive heart failure. Presents with dyspnea likely related to congestive heart disease and COPD flare. Plan -Cardiology evaluation appreciated -prednisone taper by 10 mg every 2 days starting from 60 mg -Continue Lasix and ins and outs monitoring and beta-blockade -Zithromax for 5 day course -Continue liquids and telemetry monitoring -TRC and nebs -can resume spiriva or can use atrovent and albuterol nebulized Tele hold d/c planning PT/oob
--- NOTE | 2016-05-08 13:27 | PN- Cardiology ---
Subjective Subjective: Clinically the patient doing better. He continues to have expiratory wheezing. His respiratory status is otherwise improved. Lower extremity edema improving. Objective Vital Signs and I&Os Vital Signs Date Time Temp Pulse Resp B/P Pulse O2 O2 Flow FiO2 Ox Delivery Rate 05/08 0916 93 Room Air Room Air 05/08 0859 90 128/64 05/08 0859 128/64 05/08 0800 98 Nasal 1.0L Cannula 05/08 0800 98.7 91 20 132/64 98 Nasal 1.0L Cannula 05/08 0000 Nasal 1.0L Cannula 05/07 2200 97.7 64 24 126/64 94 Nasal 1.0L Cannula 05/07 2101 64 126/64 05/07 2010 94 Nasal 1.0L Cannula 05/07 1600 96 Nasal 2.0L Cannula 05/07 1600 97.9 82 22 102/50 96 Nasal 2.0L Cannula Intake & Output 05/08 1600 05/08 0800 05/08 0000 05/07 1600 05/07 0800 05/07 0000 Intake Total 150 500 920 144 262 Output Total 250 500 500 200 725 Balance -100 0 420 -56 -463 Intake, IV 0 24 22 Intake, Oral 150 500 920 120 240 Number 0 0 0 Bowel Movements Output, Urine 250 500 500 200 725 Current Medications: Current Medications Sig/Jaswinder Start time Last Medication Dose Route Stop Time Status Admin Acetaminophen 650 MG Q6-PRN PRN 05/05 2200 AC 05/06 PO 1342 Albuterol Sulfate 3 ML BID 05/06 2200 AC 05/08 INH 0915 Allopurinol 100 MG DAILY 05/06 1000 AC 05/08 PO 0858 Apixaban 2.5 MG Q12 05/05 2200 AC 05/08 PO 0858 Atorvastatin Calcium 10 MG 1700 05/06 1700 AC 05/07 PO 1655 Azithromycin 500 MG DAILY 05/06 1515 AC 05/08 PO 0859 Budesonide/ 2 PUF BID 05/06 1000 AC 05/08 Formoterol Fumarate INH 0900 Carvedilol 9.375 MG BID 05/05 2200 AC 05/08 PO 0859 Colchicine 300 MCG DAILY 05/06 1000 AC 05/08 PO 0900 Diclofenac Sodium 1 MARTIR 4 TIMES/DAY PRN 05/06 1500 AC 05/06 TOP 1544 Docusate Sodium 100 MG DAILY 05/06 1000 AC 05/08 PO 0858 Furosemide 40 MG DAILY 05/08 1000 AC 05/08 IV 0904 Furosemide 40 MG 7:30 AM, & 4:30 PM 05/05 2230 DC 05/07 IV 0636 Levothyroxine Sodium 0.025 MG DAILY AC 05/06 0700 AC 05/08 PO 0546 Losartan Potassium 50 MG DAILY 05/06 1000 AC 05/08 PO 0859 Omeprazole 40 MG DAILY AC 05/06 0700 AC 05/08 PO 0546 Polyethylene Glycol 17 GM DAILY 05/06 1000 AC PO Prednisone 10 MG DAILY 05/17 1000 AC PO 05/19 0959 Prednisone 20 MG DAILY 05/15 1000 AC PO 05/17 0959 Prednisone 30 MG DAILY 05/13 1000 AC PO 05/15 0959 Prednisone 40 MG DAILY 05/11 1000 AC PO 05/13 0959 Prednisone 50 MG DAILY 05/09 1000 AC PO 05/11 0959 Prednisone 60 MG DAILY 05/07 1000 AC 05/08 PO 05/09 0959 0859 Results Last 48 Hrs of Labs/Mics: Laboratory Tests 05/08/16 0600: Anion Gap 14, Estimated GFR 29 L, BUN/Creatinine Ratio 44.5 H, Magnesium 2.4 H 05/07/16 0521: Anion Gap 15, Estimated GFR 29 L, BUN/Creatinine Ratio 37.7 H, Magnesium 2.1 Assessment/Plan Assessment/Plan Assessment: 1. Acute hypoxic respiratory failure with Worsening shortness of breath and lower extremity edema-I suspect that the patient's current status is related to underlying multifactorial issues including chronic renal insufficiency, underlying pulmonary disease with exacerbation of his bronchospastic disease, diastolic heart failure, pulmonary hypertension, venous insufficiency, etc. 2. Chronic renal insufficiency 3. Atrial fibrillation with permanent pacemaker placed 4. History of gout 5. Thyroidism Recommendations: -Continue current pulmonary treatment as per Dr. Franco -Hold Lasix today in view of increasing BUN of 98; transition to oral diuretics at time of discharge -Follow-up laboratories in 24 hours -Further plans at that time Continue telemetry? Yes
[2016-05-08 16:00] VITALS: BP 134/68
--- NOTE | 2016-05-08 18:27 | NUR ---
ICU RESIDENT NOTIFIED OF SHORT RUN OF QUESTIONABLE V-TACH PT ASYMPTOMATIC
[2016-05-08 22:03] VITALS: BP 130/60
--- NOTE | 2016-05-08 23:10 | NUR ---
RECEIVED PATIENT FROM THE ICU WITH AN ICU BED. PATIENT ALERT AND ORIENTED X3. DENIES PAIN, AMBULATES INDEPENDENTLY TO THE BATHROOM. ORIENTED PATENT TO THE UNIT. 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 ON TELEMONITORING AND SR 88. NO SOB, PLEASANT. APPEARS COMFORTABLE.
[2016-05-09 08:19] VITALS: BP 120/60
[2016-05-09 08:29] VITALS: BP 120/60
--- NOTE | 2016-05-09 11:07 | PN- Cardiology ---
Subjective Subjective: The patient is feeling better. He is asking whether he can go home today. He has no chest pain or excess shortness of breath. He did have a run of nonsustained ventricular tachycardia earlier today. His BUN is slightly improved at 91 today and creatinine is down to 1.9. Objective Vital Signs and I&Os Vital Signs Date Time Temp Pulse Resp B/P Pulse O2 O2 Flow FiO2 Ox Delivery Rate 05/09 1035 96 Room Air 05/09 0830 Room Air 05/09 0829 78 120/60 05/09 0828 78 120/60 05/09 0819 97.7 78 18 120/60 94 Room Air 05/09 0000 Room Air 05/08 2227 98.0 83 18 122/60 05/08 2203 97.6 84 18 130/60 96 Room Air 05/08 1743 97 Room Air 05/08 1600 97.2 75 22 134/68 Room Air Intake & Output 05/09 1600 05/09 0800 05/09 0000 05/08 1600 05/08 0800 05/08 0000 Intake Total 120 100 550 150 500 Output Total 400 450 250 500 Balance -280 100 100 -100 0 Intake, IV 0 Intake, Oral 120 100 550 150 500 Number 2 0 Bowel Movements Output, Urine 400 450 250 500 Physical Exam: He is in no distress HEENT exam is normal Chest reveals mild expiratory wheezing Heart reveals regular rhythm and no murmurs Extremities are negative Current Medications: Current Medications Sig/Jaswinder Start time Last Medication Dose Route Stop Time Status Admin Acetaminophen 650 MG Q6-PRN PRN 05/05 2200 AC 05/06 PO 1342 Albuterol Sulfate 3 ML BID 05/06 2200 AC 05/09 INH 1031 Allopurinol 100 MG DAILY 05/06 1000 AC 05/09 PO 0827 Apixaban 2.5 MG Q12 05/05 2200 AC 05/09 PO 0828 Atorvastatin Calcium 10 MG 1700 05/06 1700 AC 05/08 PO 1627 Azithromycin 500 MG DAILY 05/06 1515 AC 05/09 PO 0830 Budesonide/ 2 PUF BID 05/06 1000 AC 05/09 Formoterol Fumarate INH 0826 Carvedilol 9.375 MG BID 05/05 2200 AC 05/09 PO 0828 Colchicine 300 MCG DAILY 05/06 1000 AC 05/09 PO 0827 Diclofenac Sodium 1 MARTIR 4 TIMES/DAY PRN 01/04 1500 AC 05/06 TOP 1544 Docusate Sodium 100 MG DAILY 05/06 1000 AC 05/09 PO 0830 Furosemide 40 MG DAILY 05/08 1000 DC 05/08 IV 0904 Levothyroxine Sodium 0.025 MG DAILY AC 05/06 0700 AC 05/09 PO 0701 Losartan Potassium 50 MG DAILY 05/06 1000 AC 05/09 PO 0829 Omeprazole 40 MG DAILY AC 05/06 0700 AC 05/09 PO 0701 Polyethylene Glycol 17 GM DAILY 05/06 1000 AC PO Prednisone 10 MG DAILY 05/17 1000 AC PO 05/19 0959 Prednisone 20 MG DAILY 05/15 1000 AC PO 05/17 0959 Prednisone 30 MG DAILY 05/13 1000 AC PO 05/15 0959 Prednisone 40 MG DAILY 05/11 1000 AC PO 05/13 0959 Prednisone 50 MG DAILY 05/09 1000 AC 05/09 PO 05/11 0959 0829 Prednisone 60 MG DAILY 05/07 1000 DC 05/08 PO 05/09 0959 0859 Results Last 48 Hrs of Labs/Mics: Laboratory Tests 05/09/16 0630: Anion Gap 14, Estimated GFR 34 L, BUN/Creatinine Ratio 47.9 H, Magnesium 2.5 H 05/08/16 0600: Anion Gap 14, Estimated GFR 29 L, BUN/Creatinine Ratio 44.5 H, Magnesium 2.4 H Assessment/Plan Assessment/Plan The patient is having some arrhythmias. Otherwise he is stable from a cardiac standpoint. I recommend increasing his Coreg to 12.5 mg twice daily. I would restart his Lasix at 40 mg by mouth daily. He may be able to be discharged today after being seen by pulmonary. Continue telemetry? Yes
[2016-05-09] MEDS ORDERED: PREDNISONE10 M2 PO ×3 (11:54→12:48)
--- NOTE | 2016-05-09 11:54 | PN- Pulmonary ---
Subjective HPI/Critical Care Issues: Patient seen and examined. No chest pain, at respiratory baseline. No nausea, vomiting, diarrhea or constipation. Afebrile and hemodynamically stable. Objective Current Medications: Current Medications Sig/Jaswinder Start time Last Medication Dose Route Stop Time Status Admin Acetaminophen 650 MG Q6-PRN PRN 05/05 2200 AC 05/06 PO 1342 Albuterol Sulfate 3 ML BID 05/06 2200 AC 05/09 INH 1031 Allopurinol 100 MG DAILY 05/06 1000 AC 05/09 PO 0827 Apixaban 2.5 MG Q12 05/05 2200 AC 05/09 PO 0828 Atorvastatin Calcium 10 MG 1700 05/06 1700 AC 05/08 PO 1627 Azithromycin 500 MG DAILY 05/06 1515 AC 05/09 PO 0830 Budesonide/ 2 PUF BID 05/06 1000 AC 05/09 Formoterol Fumarate INH 0826 Carvedilol 12.5 MG BID 05/09 2200 AC PO Carvedilol 9.375 MG BID 05/05 2200 DC 05/09 PO 0828 Colchicine 300 MCG DAILY 05/06 1000 AC 05/09 PO 0827 Diclofenac Sodium 1 MARTIR 4 TIMES/DAY PRN 05/06 1500 AC 05/06 TOP 1544 Docusate Sodium 100 MG DAILY 05/06 1000 AC 05/09 PO 0830 Furosemide 40 MG DAILY 05/09 1132 AC PO Furosemide 40 MG DAILY 05/08 1000 DC 05/08 IV 0904 Levothyroxine Sodium 0.025 MG DAILY AC 05/06 0700 AC 05/09 PO 0701 Losartan Potassium 50 MG DAILY 05/06 1000 AC 05/09 PO 0829 Omeprazole 40 MG DAILY AC 05/06 0700 AC 05/09 PO 0701 Polyethylene Glycol 17 GM DAILY 05/06 1000 AC PO Prednisone 10 MG DAILY 05/17 1000 AC PO 05/19 0959 Prednisone 20 MG DAILY 05/15 1000 AC PO 05/17 0959 Prednisone 30 MG DAILY 05/13 1000 AC PO 05/15 0959 Prednisone 40 MG DAILY 05/11 1000 AC PO 05/13 0959 Prednisone 50 MG DAILY 05/09 1000 AC 05/09 PO 05/11 0959 0829 Prednisone 60 MG DAILY 05/07 1000 DC 05/08 PO 05/09 0959 0859 Vital Signs & I&O Last 24 Hrs of Vitals and I&O: Vital Signs Date Time Temp Pulse Resp B/P Pulse O2 O2 Flow FiO2 Ox Delivery Rate 05/09 1035 96 Room Air 05/09 0830 Room Air 05/09 0829 78 120/60 05/09 0828 78 120/60 05/09 0819 97.7 78 18 120/60 94 Room Air 05/09 0000 Room Air 05/08 2227 98.0 83 18 122/60 05/08 2203 97.6 84 18 130/60 96 Room Air 05/08 1743 97 Room Air 05/08 1600 97.2 75 22 134/68 Room Air Intake & Output 05/09 1600 05/09 0800 05/09 0000 Intake Total 120 100 Output Total 400 Balance -280 100 Intake, Oral 120 100 Output, Urine 400 Exam Other Physical Findings: General - Alert, awake and oriented HEENT - normocephalic, atraumatic Cardiovascular - S1, S2 Lungs - bilateral bibasilar rhonchi Abdomen - soft, bowel sounds positive, no tenderness Extremities - edematous Results Last 24 Hrs of Lab Results: Laboratory Tests 05/09/16 0630: Anion Gap 14, Estimated GFR 34 L, BUN/Creatinine Ratio 47.9 H, Magnesium 2.5 H Impression/Plan Impression/Plan Impression/Plan: Impression 85-year-old man with a history of COPD, atrial fibrillation, pulmonary nodules, obstructive sleep apnea and congestive heart failure. Presents with dyspnea likely related to congestive heart disease and COPD flare. Plan -Cardiology evaluation appreciated -prednisone taper by 10 mg every 2 days, patient on 5 mg prednisone twice a day for gout and please remain on that upon discharge -Continue Lasix and ins and outs monitoring and beta-blockade -Zithromax for 5 day course -Continue liquids and telemetry monitoring -TRC and nebs -can resume spiriva or can use atrovent and albuterol nebulized Okay for discharge from pulmonary perspective
[2016-05-09] MEDS ORDERED: COREG12.5 M1 PO (12:33)
--- NOTE | 2016-05-09 12:42 | Discharge Summary ---
Visit Information Visit Dates Admission Date: 05/05/16 Discharge Date: 05/09/16 Hospital Course Course Attending Physician: JEANETTE CARRERA,AUSTEN Dotson Primary Care Physician: ERINN CARRERA,DOUGLAS Bustamante Consulting Request: 1 Consulting Specialty: Cardiology Consulting Physician: Reason for Consult: CHF exacerbation Consulting Request: 2 Consulting Specialty: Pulmonary Disease Consulting Physician: Reason for Consult: COPD exacerbation Hospital Course: Patient is a 85 YO M with PMH significant CAD (s/p 7 stents),TIA, diastolic and systolic heart failure, AF (on Eliquis) S/P pacemaker, history of lung cancer and prostate cancer (diagnosed in 2015 S/P radiation and surgery), 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 Vital signs in ER afebrile with Temp of 97.8, HR 84, BP 171/79. On presentation patient was 92% on 2 L however he was intermittently desaturating to 88%. He was admitted to telemetry floor, but placed in ICU because of diversion issues. He was treated for the following conditions during his hospital stay: acute hypoxic respiratory failure (multifactorial) He came in with worsening shortness of breath, did not improve on increased dose of Lasix, pedal edema. Patient had PFTs in July 2014 which showed mild obstruction and severe reduction in DLCO month he does have a diagnosis of obstructive sleep apnea however he refrains from using CPAP and has never used it. The worsening shortness of breath could be secondary to COPD exacerbation, along with diastolic heart failure, pulmonary hypertension. Intially placed on IV solumedrol and then converted to oral prednisone taper. He is supposed to complete his taper by 17 may and then will be on prednisone 5mg indefinitely (for gout). He received Azithromycin X 5 day course. initially he is given IV furosemide BID which was later converted to Once IV --> once oral. However his BUN (to 98) and Creatinine (1.8 to 2.0 to 2.2) increased and subsequently holded for a day. Next day Cr came down to 1.9 and he was discharged with Lasix 40mg daily. Ehcocardiogram : on 05/06/16 Shows very mild global hypokinesia present which appears to be worse in the inferoposterior segments. EF is approx 50%. A false tendon is present at the apex. Systolic function is similar to prior ECHO and no evidence of pul HTN bilateral lower extremity edema. Edema has improved significantly after increase of Lasix dosage by the PCP. This could be secondary to diastolic heart failure as well as venous insufficiency. No edema evident by the tiem of discharge. elevated troponins. Troponins trended to 0.11.... 0.14..... 0.15..... 0.12, most likely thought to be secondary to demand ischemia. Chronic kidney disease Creatinine increased from admission 1.8 to 2.0 to 2.2 and BUN 98 highest. At the time of discharge its 1.9, which is his baseline. During his hospital course we treated his chronic stable conditions with -- Lipitor 10 mg daily for hypercholesterolemia, losartan 50 mg daily for hypertension, colchicine 300 g daily allopurinol 100 mg daily for gout, MiraLAX and Colace for constipation,synthyroid 0.025 mg for hypothyroidism, carvedilol 9.375 mg twice a day for rate control and Eliquis for anticoagulation for his atrial fibrillation. Complications: none Allergies: Coded Allergies: caffeine (HEADACHES 05/05/16) Significant Procedures: CXR on 05/05/16 IMPRESSION: Pulmonary hypoinflation. Persistent opacities within the left lung base which could reflect linear scarring or subsegmental atelectasis. Stable prominence of the cardiac silhouette, without overt pulmonary edema. CXR on 05/06/16 IMPRESSION: No significant change from prior. Low lung volumes with patchy basilar opacities most suggestive of subsegmental atelectasis. Small right pleural effusion suspected. ECHO - on 05/06/16 CONCLUSIONS 1. Mild to moderate aortic sclerosis is present with mild to moderate aortic insufficiency. 2. Mitral leaflet thickening is present with mild annular calcification and mild mitral insufficiency. Moderate left atrial enlargement is present. 3. No significant pericardial fluid was detected on this study. 4. The left ventricular chamber size is normal. There is very mild global hypokinesia present which appears to be worse in the inferoposterior segments. The ejection fraction is approximately 50%. A false tendon is present at the apex. 5. Mild tricuspid insufficiency is present with no evidence of significant pulmonary hypertension. The estimated right ventricular systolic pressure is 42 mmHg. 6. Pacemaker wires are present in the right heart chambers. 7. When compared with the prior echocardiogram, the left ventricular systolic function is approximately the same. Pertinent Lab Results: ProBNP of 3000, elevated troponins of 0.11.... 0.14..... 0.15..... 0.12, elevated creatinine of 1.9 at discharge (baseline) Disposition Summary Disposition Principal Diagnosis: COPD exacerbation Additional Diagnosis: CHF exacerbation Discharge Disposition: home health services Discharge Instructions General Discharge Information Code Status: Full Code Patient's Diet: Heart healthy diet Patient's Activity: activity as tolerated Follow-Up Instructions/Appts: Please follow up with your PCP in a week. Please follow up with Dr. Franco in a week. Please follow up with your cost recovery technician in a week. () Medications at Discharge Discharge Medications: Continue taking these medications: Losartan Potassium (Cozaar) 50 MG TABLET 1 Tablet ORAL DAILY Comments: Last Taken:05/09/15 Time:9AM Simvastatin (Zocor) 20 MG TAB 1 Tablet ORAL Every night Apixaban (Eliquis) 2.5 MG TAB 1 Tablet ORAL Q12H Comments: PER PT Furosemide (Furosemide) 40 MG TAB 1 Tablet ORAL DAILY Comments: PER PT Esomeprazole (Nexium) 40 MG CAPSULE. 1 Capsule ORAL TWICE DAILY Qty = 30 Comments: DOCUMENTED "40MG BID" PER CMR DURING PRE-SX INTERVIEW PER PT MED LIST NOT GIVEN Cyanocobalamin/FA/Pyridoxine (Folbic Tablet) 1 EACH TABLET 1 Tablet ORAL DAILY Qty = 30 Comments: PER PT MED LIST NOT GIVEN Levothyroxine Sodium (Levothyroxine Sodium) 25 MCG TABLET 1 Tablet ORAL DAILY BEFORE BREAKFAST Qty = 60 Comments: Last Taken:05/09/15 Time: 9AM Budesonide/Formoterol Fumarate (Symbicort 160-4.5 Mcg Inhaler) 10.2 GM HFA.AER.AD 2 Puff Inhale through mouth 2 x Daily as needed as needed for BREATHING Qty = 10 Comments: Last Taken:05/09/15 Time:9AM Albuterol Sulfate (Albuterol Sulfate) 2.5 MG/3 ML VIAL.NEB 1 Vial Inhale Solution as needed for RESPIRATORY Comments: Last Taken:05/09/15 Time:9AM Cholecalciferol (Vitamin D3) (Vitamin D3) 1,000 UNIT CAPSULE 1 Capsule ORAL TWICE DAILY Comments: PER PT MED LIST Polyethylene Glycol 3350 (Clearlax) 17 GRAM/DOSE POWDER 0.5 Capsule ORAL DAILY Comments: NOT TAKEN Colchicine (Colchicine) 0.6 MG TABLET 0.5 Tablet ORAL DAILY Qty = 15 Comments: Last Taken:05/09/15 Time:9AM Docusate Sodium (Colace) 100 MG CAPSULE 1 Capsule ORAL DAILY Comments: DOCUMENTED PER CMR DURING PRE-SX INTERVIEW Allopurinol (Allopurinol) 100 MG TABLET 1 Tablet ORAL DAILY Qty = 60 Comments: Last Taken:05/09/15 Time:9AM Start taking the following new medications: Prednisone (Prednisone) 10 MG TABLET 1 Tablet ORAL See Instructions Qty = 30 No Refills Instructions: 10MG 5 TAB ONCE A DAY 05/10/2016 10MG 4 TAB ONCE A DAY 05/11/2016 TO 05/12/2016 10MG 3 TAB ONCE A DAY 05/13/2016 TO 05/14/2016 10MG 2 TAB ONCE A DAY 05/15/2016 TO 05/16/2016 10MG 1 TAB ONCE A DAY 05/17/2016 TO 05/18/2016 5MG 1 TAB TWO TIMES A DAY CONTINUOSE AND FOLLOW YOUR DOCTOR Comments: Last Taken:05/09/15 Time:9AM The following medications have been changed: Old: Carvedilol (Coreg) 6.25 MG TABLET 1.5 Tablet ORAL TWICE DAILY New: Carvedilol (Coreg) 12.5 MG TABLET 1 Tablet ORAL TWICE DAILY Days = 30 Comments: Last Taken:05/09/15 Time:9AM Copies To: AUSTEN REID MD; ERINN CARRERA,DOUGLAS Bustamante; BRICE CARRERA,Herberth FU; CAMELIA CARRERA,SLADE Attending MD Review Statement Documenting Attending: JEANETTE CARRERA,AUSTEN Dotson
--- NOTE | 2016-05-09 16:55 | PN- Att Addend ---
Attending Addendum Attending Brief Note 85-year-old male with past medical history significant for COPD, CKD, pulmonary nodules, obstructive sleep apnea, diastolic congestive heart failure, A. fib on Eliquis is being admitted on the floor with acute respiratory failure. He was treated with IV Lasix, steroids and antibiotics his Lasix was withheld initially due to elevated kidney functions which has been restarted back on patient's discharge. Patient was also followed up by the pulmonary team. Patient is being discharged on slow taper of steroids and would continue on 5 mg of prednisone twice a day for gout. Patient is stable to be discharged and would follow-up with his primary care physician.
== END 2016-05-09 13:15 | DRG 291 ==
LOC: ERH 15:32 → CRI 16:06 → ERHI 16:06 → CRI 05-06 10:29 → 1NO 05-08 21:32
PROVIDERS: Emergency Medicine; Student in an Organized Health Care Education/Training Program; ADMIT Internal Medicine
DX: I13.0 Hypertensive heart and chronic kidney disease with heart failure and stage 1 through stage 4 chronic kidney disease, or unspecified chronic kidney disease (principal); I50.23 Acute on chronic systolic (congestive) heart failure; J96.00 Acute respiratory failure, unspecified whether with hypoxia or hypercapnia; N18.4 Chronic kidney disease, stage 4 (severe); J44.1 Chronic obstructive pulmonary disease with (acute) exacerbation; I24.8 Other forms of acute ischemic heart disease; G45.9 Transient cerebral ischemic attack, unspecified; G47.33 Obstructive sleep apnea (adult) (pediatric); I48.91 Unspecified atrial fibrillation; Z79.01 Long term (current) use of anticoagulants; I25.10 Atherosclerotic heart disease of native coronary artery without angina pectoris; Z95.0 Presence of cardiac pacemaker; Z85.118 Personal history of other malignant neoplasm of bronchus and lung; Z85.46 Personal history of malignant neoplasm of prostate; E03.9 Hypothyroidism, unspecified; E78.5 Hyperlipidemia, unspecified
CPT/HCPCS: 1NP; CCU; ERO; 82436; 87070; 93005; 93010; 93306; J0456; J1940; J2920; J3490; J7040; J7512

== ENCOUNTER 2016-05-20 08:40 | Inpatient (IN) | payer OTHER, BC, MEDICARE ==
[~2016-05-20] VITALS: Ht 167.6 cm; Wt 84.1 kg
[~2016-05-20 08:40] MED LIST changes: +ALLOPURINOL100 M1 PO; +COREG12.5 M1 PO
--- NOTE | 2016-05-20 08:56 | NUR ---
85 Y/O MALE C/O R LOWER EXTREMITY SWELLING X 2 DAYS; STATES BOTH HIS LEGS APPEARS SWOLLEN (HX OF SAME, ON LASIX DAILY - LAST DOSE THIS AM); HOWEVER THE R KNEE IS BOTHERING HIM THE MOST. STATES HE CAME TO ED FOR SAME LAST MONTH AND HAD "2 VIALS" OF FLUID REMOVED BY VEE PEREIRA; WAS ADMITTED AND NEXT MORNING DR HENSLEY TRIED TO TAP KNEE AGAIN BUT DID NOT GET ANY FLUID OUT - PT THEN BEGAN TREATMENT FOR GOUT IN KNEE. STATES CURRENT SYMPTOMS "ARE THE SAME" THEN.
--- NOTE | 2016-05-20 09:03 | NUR ---
PT TO RM 6 VIA W/C, DENIES SOB. 2-3 + PITTING EDEMA BILATERAL ANKLES. LUNGS CLEAR EXCEPT FOR LEFT LOWER LOBE DECREASED. SVETLANA MOREAU AT BEDSIDE
[2016-05-20] MEDS ORDERED: PREDNISONE5 M1 PO (09:04)
--- NOTE | 2016-05-20 09:19 | NUR ---
PT RESTING ON STRETCHER, STATES THAT HE TAKES 10 MG PO LASIX IN THE AM AND 10 MG PO AT NIGHT, COMPLAINS OF PAIN AND SWELLING IN HIS E KNEE, HAS BEEN TREATED FOR GOUT ABOUT 1 MONTH AGO AND THAT PAIN AND SWELLING HAS INCREASED AGAIN, PT ALSO HAS HISTORY OF CHF AND NOTED WITH BLE PITTING EDEMA, DENIES INCREASED SOB, O2 SAT 95 % ON RA. SKIN COLOR WARM /DRY AND PALE.
--- NOTE | 2016-05-20 10:06 | NUR ---
PT MEDICATED PER ORDER
--- NOTE | 2016-05-20 10:15 | NUR ---
BLOOD DRAWN AND SENT TO THE LAB (SST,2 LAV,LINDSAY,BLUE,PINK)
[2016-05-20 10:20] LABS: ABSOLUTE BASOPHIL COUNT 0 /CUMM (0.0-0.2); ABSOLUTE EOSINOPHIL COUNT 0 /CUMM (0.0-0.7); ABSOLUTE GRANULOCYTE CT 14.2 /CUMM (1.4-6.5); ABSOLUTE LYMPH COUNT 0.9 /CUMM (1.2-3.4); ABSOLUTE MONOCYTE COUNT 1.1 /CUMM (0.10-0.60); BASOPHIL % 0.1 % (0.0-2.0); EOSINOPHIL % 0.1 % (0-5); GRANULOCYTE % 87.2 % (42.2-75.2); HEMATOCRIT 33.3 % (42-52); MEAN CORPUSCULAR HGB CONC 33.5 G/DL (33.0-37.0); MEAN CORPUSCULAR VOLUME 92.8 FL (80.0-94.0); PLATELET COUNT 154 /CUMM (130-400); RBC DISTRIBUTION WIDTH 13.4 % (11.5-14.5); RED BLOOD CELL CT 3.59 /CUMM (4.70-6.10); WHITE BLOOD CELL COUNT 16.3 /CUMM (4.8-10.8)
--- NOTE | 2016-05-20 10:20 | NUR ---
PT COMPLAINED OF INCREASED SOB AFTER MEDICATION AND BLOOD DRAW, O2 SAT NOTED TO DECREASE TO 88 % ON RA, PT NOTED WITH PURSE LIP BREATHING, PLACED ON 2L VIA NC AND PT ASSISTED TO SIT UP ON EDGE OF STRETCHER PER HIS REQUEST, O2 SATURATION INCREASED 95 % , RECLINER OBTAINED AND PT SITTING UP STRAIGHT. FAMILY AT BEDSIDE
--- NOTE | 2016-05-20 10:34 | ED UPPER/LOWER EXTREMITY COMPL ---
History of Present Illness General Chief Complaint: Lower Extremity Problems Stated Complaint: ?R KNEE SWOLLEN Source: patient, family, old records Exam Limitations: no limitations Vital Signs & Intake/Output Vital Signs & Intake/Output Vital Signs Date Time Temp Pulse Resp B/P Pulse O2 O2 Flow FiO2 Ox Delivery Rate 05/20 1333 97.4 100 18 121/57 95 Room Air 05/20 1225 97.5 100 20 98/58 94 Room Air 05/20 1138 97.0 106 20 85/47 93 Room Air 05/20 0915 95 Room Air 05/20 0848 98.2 71 18 91/58 99 Room Air Allergies Coded Allergies: caffeine (HEADACHES 05/05/16) Reconcile Medications Allopurinol 100 MG TABLET 1 TAB PO DAILY GOUT (Reported) Apixaban (Eliquis) 2.5 MG TAB 1 TAB PO Q12H BLOOD THINNER (Reported) Budesonide/Formoterol Fumarate (Symbicort 160-4.5 Mcg Inhaler) 10.2 GM HFA.AER.AD 2 PUF INH BIDP PRN BREATHING (Reported) Carvedilol (Coreg) 12.5 MG TABLET 1 TAB PO BID HTN Cholecalciferol (Vitamin D3) (Vitamin D3) 1,000 UNIT CAPSULE 1 CAP PO BID SUPPLEMENT (Reported) Cyanocobalamin/FA/Pyridoxine (Folbic Tablet) 1 EACH TABLET 1 TAB PO DAILY SUPPLEMENT (Reported) Docusate Sodium (Colace) 100 MG CAPSULE 1 CAP PO DAILY STOOL SOFTENER ( Reported) Esomeprazole (Nexium) 40 MG CAPSULE.DR 1 CAP PO BID GI (Reported) Furosemide 40 MG TAB 1 TAB PO DAILY DIURETIC (Reported) Levothyroxine Sodium 25 MCG TABLET 1 TAB PO DAILY AC THYROID (Reported) Losartan Potassium (Cozaar) 50 MG TABLET 1 TAB PO DAILY BP (Reported) Polyethylene Glycol 3350 (Clearlax) 17 GRAM/DOSE POWDER 0.5 CAP PO DAILY GI ( Reported) Prednisone 5 MG TABLET 1 TAB PO BID STEROID (Reported) Simvastatin (Zocor) 20 MG TAB 1 TAB PO QPM CHOLESTEROL (Reported) Triage Note: 85 Y/O MALE C/O R LOWER EXTREMITY SWELLING X 2 DAYS; STATES BOTH HIS LEGS APPEARS SWOLLEN (HX OF SAME, ON LASIX DAILY - LAST DOSE THIS AM); HOWEVER THE R KNEE IS BOTHERING HIM THE MOST. STATES HE CAME TO ED FOR SAME LAST MONTH AND HAD "2 VIALS" OF FLUID REMOVED BY VEE PEREIRA; WAS ADMITTED AND NEXT MORNING DR HENSLEY TRIED TO TAP KNEE AGAIN BUT DID NOT GET ANY FLUID OUT - PT THEN BEGAN TREATMENT FOR GOUT IN KNEE. STATES CURRENT SYMPTOMS "ARE THE SAME" THEN. Triage Nurses Notes Reviewed? yes Onset: 2 days Duration: day(s):, constant, continues in ED Timing: recent history Severity: severe Pain/Injury Location: Right: Knee. Modifying Factors: Improves With: immobilization, rest. Worsens With: movement. Associated Symptoms: swelling, GCS 15 since, stiffness HPI: 2 days prior to admission patient complains of increased swelling and pain to right knee with difficulty ambulating similar to his gouty flare last month. Denies fever chills nausea vomiting diarrhea abdominal pain chest pain shortness breath headache dysuria rash bleeding Past History Travel History Traveled to [place] past 21 day No Medical History Any Pertinent Medical History? see below for history Neurological: STROKE EENT: NONE Cardiovascular: AFIB, CHF, HI, PACEMAKER, DEFIBRILAT HTN, HIGHCHOLESTEROL STEN Respiratory: LUNG CA Gastrointestinal: GERD Hepatic: NONE Renal: ? 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 No Review of Systems Review of Systems Constitutional: Reports: no symptoms. EENTM: Reports: no symptoms. Respiratory: Reports: no symptoms. Cardiovascular: Reports: no symptoms. Gastrointestinal/Abdominal: Reports: no symptoms. Genitourinary: Reports: no symptoms. Musculoskeletal: Reports: see HPI, joint pain, joint swelling. Skin: Reports: no symptoms. Neurological/Psychological: Reports: no symptoms. Hematologic/Endocrine: Reports: no symptoms. Immunological: Reports: no symptoms. All Other Systems: Reviewed and Negative Physical Exam Physical Exam General Appearance: well developed/nourished, alert, awake, mild distress, moderate distress, obese Head: atraumatic, normal appearance Eyes: Bilateral: normal appearance, PERRL, EOMI. Ears, Nose, Throat: normal pharynx, normal ENT inspection, hearing grossly normal Neck: normal inspection, supple, full range of motion, no midline tenderness Cardiovascular/Respiratory: normal breath sounds, normal peripheral pulses, irregularly irregular Peripheral Pulses: 4+ carotid (R), 4+ carotid (L) Back: normal inspection, normal range of motion, no vertebral tenderness Shoulder Left: normal range of motion, normal inspection Shoulder Right: normal range of motion, normal inspection Elbow Left: normal range of motion, normal inspection Elbow Right: normal range of motion, normal inspection Hand Left: normal inspection, normal range of motion Hand Right: normal inspection, normal range of motion Upper Extremity Reflexes: 2+: bicep (R), bicep (L). Leg Left: normal range of motion, normal inspection Leg Right: normal range of motion, normal inspection Hip Left: normal range of motion, normal inspection Hip Right: normal range of motion, normal inspection Knee Left: normal range of motion, normal inspection Knee Right: swelling, tenderness, soft tissue tenderness, limited range of motion Knee Ligaments Right: pain anterior drawer, pain posterior drawer, pain medial stress, pain lateral stress Foot Left: normal inspection, normal range of motion Foot Right: normal inspection, normal range of motion Lower Extremity Reflexes: 2+: knee (L), ankle (L). Neurologic/Tendon: normal sensation, normal motor functions, normal tendon functions Skin: intact, normal color, warm/dry Lymphatic: no anterior cervical angelita Progress Differential Diagnosis: fracture, gout, septic arthritis Plan of Care: Orders Procedure Date/time Status Regular Diet 05/20 L Active Pathway - chart 05/20 1249 Active House Staff 05/20 1249 Active Patient Data 05/20 1249 Active Code Status 05/20 1249 Active Patient Data 05/20 1240 Active OXYGEN SETUP (GEN) 05/20 1150 Active Saline Lock 05/20 1150 Active Admit to inpatient 05/20 1150 Active Vital Signs 05/20 1150 Active Activity/Ambulation 05/20 1150 Active Code Status 05/20 1150 Complete Add-on Test (ER Only) 05/20 1136 Active EKG 05/20 1136 Active TROPONIN LEVEL 05/20 1011 Complete B-TYPE NATRIURETIC PEP (BNP) 05/20 1011 Complete URIC ACID 05/20 0947 Complete MAGNESIUM 01/18 0947 Complete HIGH SENSITIVITY CRP 05/20 946 Complete WESTERGREN SED RATE 05/20 946 Complete COMPREHENSIVE METABOLIC PANEL 05/20 946 Complete CBC WITHOUT DIFFERENTIAL 05/20 946 Complete Intake & Output 05/20 914 Active VTE Mechanical Prophylaxis 05/20 UNK Active 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 05/20 UNK Active Current Medications Sig/Jaswinder Start time Last Medication Dose Stop Time Status Admin Allopurinol 100 MG DAILY 05/21 1000 AC (Zyloprim) Docusate Sodium 100 MG DAILY 05/21 1000 AC (Colace) Furosemide 40 MG DAILY 05/21 1000 CAN (Lasix) Furosemide 40 MG DAILY 05/21 1000 AC (Lasix) Levothyroxine Sodium 0.025 MG DAILY AC 05/21 0700 AC (Synthroid) Budesonide/ 2 PUF BID 05/20 2200 AC Formoterol Fumarate (Symbicort) Prednisone 5 MG BID 05/20 2200 CAN Apixaban 2.5 MG Q12H 05/20 1730 AC (Eliquis) Atorvastatin Calcium 20 MG 1700 05/20 1700 AC (Lipitor) Omeprazole 40 MG 1/2H B/BREAKF/DINNER 05/20 1630 AC (Prilosec) Apixaban 2.5 MG Q12H 05/20 1400 CAN (Eliquis) Heparin Sodium 5,000 UNIT Q8 05/20 1400 CAN (Porcine) Laboratory Tests 05/20/16 1011: Anion Gap 8, Estimated GFR 27 L, BUN/Creatinine Ratio 24.8, Glucose 170 H, Uric Acid 6.8, Calcium 8.7, Magnesium 2.1, Total Bilirubin 1.5 H, AST 24, ALT 32, Alkaline Phosphatase 86, Troponin I 0.18 *H, C-React Prot High Sens > 15.0 H, [id number]-Hnhrqyjytlj Pept 3170 H, Total Protein 5.7 L, Albumin 2.9 L, Globulin 2.8, Albumin/Globulin Ratio 1.0 L, CBC w Diff MAN DIFF ORDERED, RBC 3.59 L, MCV 92.8, MCH 31.0, RDW 13.4, MPV 9.0, Gran % 87.2 H, Lymphocytes % 5.6 L, Monocytes % 7.0, Eosinophils % 0.1, Basophils % 0.1, Absolute Granulocytes 14.2 H, Segmented Neutrophils 81 H, Band Neutrophils 3, Absolute Lymphocytes 0.9 L, Lymphocytes 8 L, Monocytes 8, Absolute Monocytes 1.1 H, Absolute Eosinophils 0, Absolute Basophils 0, Platelet Estimate ADEQUATE, Anisocytosis 1+, PUBS MCHC 33.5, ESR Westergren 110 H Diagnostic Imaging: Viewed by Me: Radiology Read. Discussed w/RAD: Radiology Read. Initial ED EKG: AFIB, pacemaker rhythm Prior EKG: changed (new PVC) Rhythm Strip: atrial fibrillation (paced) Departure Departure Time of Disposition: 1130 Disposition: STILL A PATIENT Condition: Stable Clinical Impression Primary Impression: Elevated troponin Secondary Impressions: Acute renal insufficiency, Gouty arthritis Referrals: ERINN CARRERA,DOUGLAS Bustamante (PCP/Family) Departure Forms: Customer Survey General Discharge Information Admission Note Spoke With: MAURICIO ARRIOLA MD Documentation of Exam: Documentation of any treatments & extenuating circumstances including Concerns Regarding Discharge (functional status, medication knowledge or non-compliance, living conditions, etc.) that warrant an admission rather than observation: Serial lab exam cardiac monitoring serial EKG medication adjustment cardiology evaluation rheumatology evaluation continuing care discharge planning
--- NOTE | 2016-05-20 11:39 | NUR ---
THIS NURSE TO BEDSIDE, PT DENIES SOB/CP, STATES THAT PAIN IN HIS KNEE ABOUT 5/10, PT REMAINS SITTING UP IN RECLINER CHAIR, BP 85/47 DR HENDERSON AWARE AND 250 ML BOLUS INFUSING PER ORDER, PT REMOVED FROM O2 AT THIS TIME , SATURATION 94 % ON RA, WILL CONTINUE TO MONITOR. MST OBTAING EKG AT THIS TIME
--- NOTE | 2016-05-20 12:09 | NUR ---
CRITICAL TEST RESULTS [id number] HESHAM CARLOS T SR 85 M TESTS AND RESULTS: TROPONIN 0.18 Results received and read back by: MARLA MANUEL Results received date and time: 05/20/16 1209 The following provider was notified of the results, and read the results back: MD HENDERSON Notified date and time: 05/20/16 at 1209
--- NOTE | 2016-05-20 12:22 | NUR ---
BP 98/58 AFTER 250 ML NS BOLUS, PT ASSISTED BACK INTO BED, RA SATURATION 94 % AT THIS TIME. PT POSITIONED UP IN BED, STATES THAT PAIN THAT IS IN HIS BILATERAL LEGS IS BETTER, PAIN WORSE ON THE R SIDE. PT PACED ON MONITOR HR 100. CONTINUES TO DENIES CP. FAMILY AT BEDSIDE
--- NOTE | 2016-05-20 13:11 | RADIOLOGY REPORT ---
EXAMINATION: XR KNEE, RIGHT CLINICAL INFORMATION: Pain and swelling, gout. COMPARISON: None. TECHNIQUE: Frontal and lateral FINDINGS: Bone mineral density is maintained without evidence of fracture or dislocation. No focal osseous lesions are seen. There is fairly extensive tricompartmental joint space narrowing with near [id number] articulation suggested in the medial joint compartment with small marginal osteophytes identified. There is a small joint effusion. No erosive changes are seen. There is moderate atherosclerotic arterial calcification. IMPRESSION: Fairly extensive degenerative changes most notably medial joint compartment.
--- NOTE | 2016-05-20 13:13 | RADIOLOGY REPORT ---
EXAMINATION: XR PORTABLE CHEST CLINICAL INFORMATION: Weakness and pedal edema. COMPARISON: 05/06/2016 TECHNIQUE: Portable upright radiograph. FINDINGS: A left-sided pacemaker and multiple leads are identified. The cardiomediastinal silhouette is within normal limits. Lung volumes are diminished. There is persistent mild elevation of the left hemidiaphragm unchanged. Patchy opacities bilateral lung bases, left side greater than right suggests subsegmental atelectasis unchanged. There is blunting of the right costophrenic angle suggesting a small effusion. There is no evidence of pneumothorax or pulmonary edema. Included osseous structures appear largely unremarkable. IMPRESSION: Low lung volumes, no evidence of significant change. Small right pleural effusion is once again suggested.
--- NOTE | 2016-05-20 13:16 | NUR ---
PT ASSIGNED ROOM 189 BED 1.
--- NOTE | 2016-05-20 13:34 | NUR ---
PT REQUESTED TO SIT UP IN RECLINER CHAIR AT THIS TIME, ASSISTED BY STAFF, PACED ON MONITOR HR 100, DENIES CP, O2 SAT ON RA 95 % . BP 121/57
--- NOTE | 2016-05-20 13:56 | History & Physical ---
IVELISSE LINCOLN 05/20/16 1435: General Information and HPI MD Statement: I have seen and personally examined HESHAM CARLOS SR and documented this H&P. The patient is a 85 year old M who presented with a patient stated chief complaint of bilateral lower extremity edema and right knee pain for 2-3 days [] . 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 Patient was discharged along with his usual home medications on allopurinol 100 mg daily, cholchicine mg half tablet daily and tapering course of prednisone which he completed yesterday and now is on his usual dose of 5 mg twice a day. After discharge patient was seen by Dr. Plasencia and was told to stop colchicine and continue with tapering prednisone and allopurinol. Patient was fine for 1 week and for the last 2-3 days he started having lower extremity edema along with bilateral knee pain and right-sided knee joint swelling, tenderness and redness. According to patient it was hard for him to ambulate even with his cane. He was grading right-sided knee pain to 10 out of 10 and left-sided knee pain from 5-6 out of 10, pain is sharp and constant. He denied fever, chills, headache, dizziness, chest pain, worsening shortness of breath, nausea, vomiting, diarrhea or constipation. Denied any urinary complaints, recent fall or palpitations. Vital signs on admission his temperature was 98.2, pulse 71, respiratory rate 18 , blood pressure 91/58 mmHg and he was saturating 99% on room air. Initial labs were WBC count 16.3, hemoglobin 11.1, hematocrit 33.3 and platelet count 154, sodium 136, potassium 4.3, BUNs and 57, creatinine 2.3, GFR 27, uric acid 6.8, bilirubin 1.5, usual set of troponins 0.18 Initial EKG shows paced rhythm, irregularly irregular heart rate X-ray right knee showed fairly extensive degenerative changes and small joint effusion Chest x-ray showed low lung volumes with no evidence of significant changes, small right pleural effusion. Allergies/Medications Allergies: Coded Allergies: caffeine (HEADACHES 05/05/16) Home Med list Allopurinol 100 MG TABLET 1 TAB PO DAILY GOUT (Reported) Apixaban (Eliquis) 2.5 MG TAB 1 TAB PO Q12H BLOOD THINNER (Reported) Budesonide/Formoterol Fumarate (Symbicort 160-4.5 Mcg Inhaler) 10.2 GM HFA.AER.AD 2 PUF INH BIDP PRN BREATHING (Reported) Carvedilol (Coreg) 12.5 MG TABLET 1 TAB PO BID HTN Cholecalciferol (Vitamin D3) (Vitamin D3) 1,000 UNIT CAPSULE 1 CAP PO BID SUPPLEMENT (Reported) Cyanocobalamin/FA/Pyridoxine (Folbic Tablet) 1 EACH TABLET 1 TAB PO DAILY SUPPLEMENT (Reported) Docusate Sodium (Colace) 100 MG CAPSULE 1 CAP PO DAILY STOOL SOFTENER ( Reported) Esomeprazole (Nexium) 40 MG CAPSULE.DR 1 CAP PO BID GI (Reported) Furosemide 40 MG TAB 1 TAB PO DAILY DIURETIC (Reported) Levothyroxine Sodium 25 MCG TABLET 1 TAB PO DAILY AC THYROID (Reported) Losartan Potassium (Cozaar) 50 MG TABLET 1 TAB PO DAILY BP (Reported) Polyethylene Glycol 3350 (Clearlax) 17 GRAM/DOSE POWDER 0.5 CAP PO DAILY GI ( Reported) Prednisone 5 MG TABLET 1 TAB PO BID STEROID (Reported) Simvastatin (Zocor) 20 MG TAB 1 TAB PO QPM CHOLESTEROL (Reported) Compliance With Home Meds: GOOD Past History Travel History Traveled to [place] past 21 day No Medical History Neurological: STROKE EENT: NONE Cardiovascular: AFIB, CHF, ID, PACEMAKER, DEFIBRILAT HTN, HIGHCHOLESTEROL STEN Respiratory: LUNG CA Gastrointestinal: GERD Hepatic: NONE Renal: ? 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 Psychosocial History Services at Home: None Functional Ability ADLs Independent: dressing, eating, toileting, bathing. Ambulation: independent, cane, non-ambulatory IADLs Independent: shopping, housework, finances, food prep, telephone, transportation , medication admin. Review of Systems Review of Systems Constitutional: Denies: chills, fever. EENTM: Denies: eye drainage, ear pain. Cardiovascular: Reports: edema. Denies: chest pain. Respiratory: Denies: cough, short of breath. GI: Denies: abdominal pain, nausea. Genitourinary: Denies: dysuria. Musculoskeletal: Reports: gout. Skin: Denies: jaundice, lesions. Exam & Diagnostic Data Last 24 Hrs of Vital Signs/I&O Vital Signs Date Time Temp Pulse Resp B/P Pulse O2 O2 Flow FiO2 Ox Delivery Rate 05/20 1333 97.4 100 18 121/57 95 Room Air 05/20 1225 97.5 100 20 98/58 94 Room Air 05/20 1138 97.0 106 20 85/47 93 Room Air 05/20 0915 95 Room Air 05/20 0848 98.2 71 18 91/58 99 Room Air Intake & Output 05/20 1600 05/20 0800 05/20 0000 Intake Total 250 Output Total Balance 250 Intake, IV 250 Intake, Oral 0 Patient 188 lb Weight Physical Exam General Appearance Alert, Oriented X3, Cooperative, No Acute Distress Skin No Rashes, No Breakdown Neck No JVD Cardiovascular IRREGULARLY IRREGULAR Lungs REDUCED AIR ENTRY ON LEFT LOWER LOBES Abdomen Soft Extremities MODERATE BILATERAL LOWER EXTREMITY EDEMA Diagnostic Data EKG Results Atrial fibrillation with paced rhythm CXR Results SERVICE DATE: 05/20/16 EXAM TYPE: RAD - XRY-PORTABLE CHEST XRAY EXAMINATION: XR PORTABLE CHEST CLINICAL INFORMATION: Weakness and pedal edema. COMPARISON: 05/06/2016 TECHNIQUE: Portable upright radiograph. FINDINGS: A left-sided pacemaker and multiple leads are identified. The cardiomediastinal silhouette is within normal limits. Lung volumes are diminished. There is persistent mild elevation of the left hemidiaphragm unchanged. Patchy opacities bilateral lung bases, left side greater than right suggests subsegmental atelectasis unchanged. There is blunting of the right costophrenic angle suggesting a small effusion. There is no evidence of pneumothorax or pulmonary edema. Included osseous structures appear largely unremarkable. IMPRESSION: Low lung volumes, no evidence of significant change. Small right pleural effusion is once again suggested. Other Results SERVICE DATE: 05/20/16 EXAM TYPE: RAD - XRY-KNEE COMPLETE RIGHT EXAMINATION: XR KNEE, RIGHT CLINICAL INFORMATION: Pain and swelling, gout. COMPARISON: None. TECHNIQUE: Frontal and lateral FINDINGS: Bone mineral density is maintained without evidence of fracture or dislocation. No focal osseous lesions are seen. There is fairly extensive tricompartmental joint space narrowing with near [id number] articulation suggested in the medial joint compartment with small marginal osteophytes identified. There is a small joint effusion. No erosive changes are seen. There is moderate atherosclerotic arterial calcification. IMPRESSION: Fairly extensive degenerative changes most notably medial joint compartment. Assessment/Plan Assessment: Patient is 85-year-old gentleman with multiple comorbidities including history of gout, CAD status post stent placement, atrial fibrillation status post pacemaker and defibrillator placement, TIA, hypertension, hyperlipidemia, diastolic and systolic heart failure and recent history of acute gouty arthritis admitted to [place] from May 05 to 05/09/2016 came with worsening lower extremity edema and severe right sided knee pain, edema, erythema and tenderness most likely due to another acute gouty arthritis. We will admit patient on telemetry floor and will take care for the following problems Problem #1 right sided tender, hot knee joint with history of gout in the past most likely secondary to another acute gouty arthritis attack but we will rule out out septic arthritis as well. -Vital signs every shift -Intake output monitoring -Dr. Plasencia was consulted and I discussed patient with him on phone and he recommended to start patient on prednisone 20 mg twice a day from tomorrow as patient was given IV Solu-Medrol in ER, we will continue his home dose of allopurinol 100 mg daily, patient was given 600 MCG off colchicine in the ER and we will continue same daily and Dr. Plasencia will see the patient in a.m. As patient is on eliquis and there is small amount of joint effusion we will hold on arthrocentesis and will be decided by Dr. Plasencia tomorrow -We will avoid NSAIDs because of CKD and we will give Percocet for moderate pain and morphine for severe pain Problem #2 bilateral lower extremity edema most likely due to underlying chronic congestive heart failure and renal failure Patient was seen by Dr. Vidales, we will change his Lasix from 40 mg by mouth to 40 mg IV starting from tomorrow Problem #3 CKD His creatinine is at baseline and we will avoid nephrotoxic medications including NSAIDs Problem #4 leukocytosis most likely secondary to acute inflammation but we will rule out infection as well We will trend his leukocytosis and watch him for fever and signs of sepsis including hypotension Problem #5 elevated troponins with no significant EKG changes most likely secondary to demand ischemia but we will rule out ACS Cardiology consultation was placed and was seen by Dr. Vidales As his blood pressure was on lower side on admission we will hold his antihypertensives for now and will restart it tomorrow when his blood pressure will be stable We'll trend EKGs and troponins Problem #6 history of hypertension and hyperlipidemia We will hold antihypertensives for now and will restart tomorrow and will continue statins Problem #7 history of atrial fibrillation on anticoagulation We will continue his home dose of eliquis 2.5 mgrams twice a day Heart healthy diet Patient is full code Pharmacological DVT prophylaxis As Ranked By This Provider Problem List: 1. Elevated troponin 2. Gouty arthritis Core Measures/Miscellaneous Acute Coronary Syndrome ACS Diagnosis: Yes Date of most recent Echo 05/06/16 Last Known EF % 50 Currently on Statin Yes Cerebrovascular Accident CVA/TIA Diagnosis: No Congestive Heart Failure CHF Diagnosis: No Venous Thromboembolism VTE Risk Factors: Age > 40 VTE Prophylaxis Ordered Inpt: Pharm- Eliquis No [facility] VTE prophylaxis d/t: No contraindications No VTE Pharm Prophylaxis d/t: No contraindications VTE Diagnosis: No VTE Type: NONE VTE Confirmed by (Test): NONE Severe Sepsis Severe Sepsis Present: No Septic Shock Septic Shock Present: No Miscellaneous Documentation Attending Case Discussed With: MAURICIO ARRIOLA MD Primary Care Physician: DOUGLAS PLASENCIA MD Patient sees these Specialists Rheumatology Level of Patient Care: Telemetry Resident Review Statement Resident Statement: examined this patient Other Findings: Patient was admitted by resident AUSTEN REID MD 05/20/16 1546: Attending Review Statement Attending Statement Attending MD Statement: examined this patient, discuss w/resident/PA/CATALYST UNIT OPERATOR, agreed w/resident/PA/CATALYST UNIT OPERATOR, reviewed EMR data (avail), discussed with nursing, discussed with case mgmt Attending Assessment/Plan: 85-year-old male known to me from recent previous admission where he was admitted with COPD and heart failure combination with acute hypoxemic respiratory failure. He was here from May 05 to May 09. Says he saw Dr. Plasencia recently even after discharge and the colchicine was stopped then secondary to his CKD. He is here with severe lower extremity edema 2-3+ and complains of a tender right knee. My suspicion for septic arthritis is really low. His knee is tender but it's not red or hot and there is a very small effusion on the x-ray. Of course he is on chronic prednisone so may be unable to mount a fever. At this point the resident spoke to Dr. Plasencia and we are going to increase his prednisone dose to 20 twice a day, continue his allopurinol and add his colchicine. We are going to continue his Eliquis, make the Lasix 40 IV daily. His pressure is on the low side so will hold the losartan. Continue the carvedilol with blood pressure parameters. Continue monitoring him on telemetry with strict I's and O's ,daily weights and BEP.
--- NOTE | 2016-05-20 14:07 | Admission Certification ---
Admission Certification Certification Statement - As attending physician, I certify that at the time of - admission, based on clinical presentation, severity of - symptoms, need for further diagnostic testing and - therapeutic interventions, and risk of adverse outcomes - without in-hospital treatment, in my clinical assessment, - this patient requires an acute hospital stay for a minimum - of two nights or longer. I have also considered psychsocial - factors such as support system, advanced age, financial - issues, cognitive issues, and failed out-patient treatments, - past re-admission history, safety of patient, and lack of - compliance as applicable. Specific rationale supporting this admission is: Patient with chronic CHF and chronic gout. Needs IV Lasix and treatment for gouty arthritis.
--- NOTE | 2016-05-20 14:09 | Cons- Cardiology ---
General Information and HPI Consulting Request Date of Consult: 05/20/16 Requested By: MAURICIO ARRIOLA MD Reason for Consult: Lower extremity edema; transient hypotension; elevated troponin Source of Information: patient, old records History of Present Illness: 85 year old male well known to me. Just discharged after an admission for knee pain with probable gout flare. Now back in ER with worsening knee pain and increasing leg edema. In the ER the patient had an episode of low BP and followup labs demonstrated an elevated troponin. The patient denies any chest discomfort. Just completed his course of oral steroids yesterday. Admitted for further evaluation of his joint pain, diuresis and evaluation of elevated troponin Allergies/Medications Allergies: Coded Allergies: caffeine (HEADACHES 05/05/16) Home Med List: Allopurinol 100 MG TABLET 1 TAB PO DAILY GOUT Apixaban (Eliquis) 2.5 MG TAB 1 TAB PO Q12H BLOOD THINNER (Reported) Budesonide/Formoterol Fumarate (Symbicort 160-4.5 Mcg Inhaler) 10.2 GM HFA.AER.AD 2 PUF INH BIDP PRN BREATHING (Reported) Carvedilol (Coreg) 12.5 MG TABLET 1 TAB PO BID HTN Cholecalciferol (Vitamin D3) (Vitamin D3) 1,000 UNIT CAPSULE 1 CAP PO BID SUPPLEMENT (Reported) Cyanocobalamin/FA/Pyridoxine (Folbic Tablet) 1 EACH TABLET 1 TAB PO DAILY SUPPLEMENT (Reported) Docusate Sodium (Colace) 100 MG CAPSULE 1 CAP PO DAILY STOOL SOFTENER ( Reported) Esomeprazole (Nexium) 40 MG CAPSULE.DR 1 CAP PO BID GI (Reported) Furosemide 40 MG TAB 1 TAB PO DAILY DIURETIC (Reported) Levothyroxine Sodium 25 MCG TABLET 1 TAB PO DAILY AC THYROID Losartan Potassium (Cozaar) 50 MG TABLET 1 TAB PO DAILY BP Polyethylene Glycol 3350 (Clearlax) 17 GRAM/DOSE POWDER 0.5 CAP PO DAILY GI ( Reported) Prednisone 5 MG TABLET 1 TAB PO SI acute gout 5mg 4tab one time 05/22/2016 5mg 3tab 2times a day 05/23/2016 to 05/24/2016 5mg 2tab 2times a day 05/25/2016 to 05/26/2016 5mg 1tab 2times a day 05/27/2016, continue till you meet with Dr. Duarte Then Stop Simvastatin (Zocor) 20 MG TAB 1 TAB PO QPM CHOLESTEROL (Reported) Current Medications: Current Medications Sig/Jaswinder Start time Last Medication Dose Route Stop Time Status Admin Apixaban 2.5 MG Q12H 05/20 1400 AC PO Atorvastatin Calcium 20 MG 1700 05/20 1700 AC PO Budesonide/ 2 PUF .[BIDP] PRN 05/20 1400 UNVr Formoterol Fumarate INH Colchicine 600 MCG ONCE ONE 05/20 1000 DC 05/20 PO 05/20 1001 1006 Docusate Sodium 100 MG DAILY 05/21 1000 AC PO Furosemide 40 MG DAILY 05/21 1000 CAN PO Furosemide 40 MG DAILY 05/21 1000 AC IV Heparin Sodium 5,000 UNIT Q8 05/20 1400 CAN (Porcine) SC Ketorolac 0 .STK-MED ONE 05/20 1003 DC Tromethamine .ROUTE Ketorolac 15 MG ONCE ONE 05/20 1000 DC 05/20 Tromethamine IV 05/20 1001 1006 Levothyroxine Sodium 0.025 MG DAILY AC 05/21 0700 AC PO Methylprednisolone 0 .STK-MED ONE 05/20 1003 DC .ROUTE Methylprednisolone 125 MG ONCE ONE 05/20 1000 DC 05/20 IV 05/20 1001 1006 Omeprazole 40 MG BID 05/20 2200 UNVr PO Prednisone 5 MG BID 05/20 2200 UNVr PO Sodium Chloride 250 ML BOLUS ONE 05/20 1145 DC 05/20 IV 05/20 1244 1222 Past History Travel History Traveled to [place] past 21 day No Medical History Neurological: STROKE EENT: NONE Cardiovascular: AFIB, CHF, IN, PACEMAKER, DEFIBRILAT HTN, HIGHCHOLESTEROL STEN Respiratory: LUNG CA Gastrointestinal: GERD Hepatic: NONE Renal: ? 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 Ambulation: independent, cane, non-ambulatory IADLs Independent: shopping, housework, finances, food prep, telephone, transportation , medication admin. Exam & Diagnostic Data Vital Signs and I&O Vital Signs Date Time Temp Pulse Resp B/P Pulse O2 O2 Flow FiO2 Ox Delivery Rate 05/20 1333 97.4 100 18 121/57 95 Room Air 05/20 1225 97.5 100 20 98/58 94 Room Air 05/20 1138 97.0 106 20 85/47 93 Room Air 05/20 0915 95 Room Air 05/20 0848 98.2 71 18 91/58 99 Room Air Intake & Output 05/20 1600 05/20 0800 05/20 0000 05/19 1600 05/19 0800 05/19 0000 Intake Total 250 Output Total Balance 250 Intake, IV 250 Intake, Oral 0 Patient 188 lb Weight Physical Exam: General Appearance Alert, Oriented X3, Cooperative, No Acute Distress, VSS Skin Normal Neck No JVD, carotids normal bilaterally Cardiovascular IRREGULARLY IRREGULAR, 2/6 systolic murmur Lungs REDUCED AIR ENTRY ON LEFT LOWER LOBES, scattered rhonchi Abdomen Soft Extremities MODERATE BILATERAL LOWER EXTREMITY EDEMA Labs/Pro Results: Laboratory Tests 05/20 1011 Chemistry Sodium (137 - 145 mmol/L) 136 L Potassium (3.5 - 5.1 mmol/L) 4.3 Chloride (98 - 107 mmol/L) 94 L Carbon Dioxide (22 - 30 mmol/L) 33 H Anion Gap (5 - 16) 8 BUN (9 - 20 mg/dL) 57 H Creatinine (0.7 - 1.2 mg/dL) 2.3 H Estimated GFR (>60 ml/min) 27 L BUN/Creatinine Ratio (7 - 25 %) 24.8 Glucose (65 - 99 mg/dL) 170 H Uric Acid (3.5 - 8.5 mg/dL) 6.8 Calcium (8.4 - 10.2 mg/dL) 8.7 Magnesium (1.6 - 2.3 mg/dL) 2.1 Total Bilirubin (0.2 - 1.3 mg/dL) 1.5 H AST (17 - 59 U/L) 24 ALT (21 - 72 U/L) 32 Alkaline Phosphatase (< 127 U/L) 86 Troponin I (<0.11 ng/ml) 0.18 *H C-React Prot High Sens (1.0 - 3.0 mg/L) > 15.0 H Rtd-M-Kryttgtiymc Pept (<125 pg/mL) 3170 H Total Protein (6.3 - 8.2 g/dL) 5.7 L Albumin (3.5 - 5.0 g/dL) 2.9 L Globulin (1.9 - 4.2 gm/dL) 2.8 Albumin/Globulin Ratio (1.1 - 2.2 %) 1.0 L Hematology CBC w Diff MAN DIFF ORDERED WBC (4.8 - 10.8 /CUMM) 16.3 H RBC (4.70 - 6.10 /CUMM) 3.59 L Hgb (14.0 - 18.0 G/DL) 11.1 L Hct (42 - 52 %) 33.3 L MCV (80.0 - 94.0 FL) 92.8 MCH (27.0 - 31.0 PG) 31.0 RDW (11.5 - 14.5 %) 13.4 Plt Count (130 - 400 /CUMM) 154 MPV (7.4 - 10.4 FL) 9.0 Gran % (42.2 - 75.2 %) 87.2 H Lymphocytes % (20.5 - 51.1 %) 5.6 L Monocytes % (1.7 - 9.3 %) 7.0 Eosinophils % (0 - 5 %) 0.1 Basophils % (0.0 - 2.0 %) 0.1 Absolute Granulocytes (1.4 - 6.5 /CUMM) 14.2 H Segmented Neutrophils (42.2 - 75.2 %) 81 H Band Neutrophils (0.0 - 5.0 %) 3 Absolute Lymphocytes (1.2 - 3.4 /CUMM) 0.9 L Lymphocytes (20.5 - 51.1 %) 8 L Monocytes (1.7 - 9.3 %) 8 Absolute Monocytes (0.10 - 0.60 /CUMM) 1.1 H Absolute Eosinophils (0.0 - 0.7 /CUMM) 0 Absolute Basophils (0.0 - 0.2 /CUMM) 0 Platelet Estimate (ADEQUATE) ADEQUATE Anisocytosis 1+ PUBS MCHC (33.0 - 37.0 G/DL) 33.5 ESR Westergren (0 - 10 MM) 110 H Diagnostic Data CXR Results FINDINGS: A left-sided pacemaker and multiple leads are identified. The cardiomediastinal silhouette is within normal limits. Lung volumes are diminished. There is persistent mild elevation of the left hemidiaphragm unchanged. Patchy opacities bilateral lung bases, left side greater than right suggests subsegmental atelectasis unchanged. There is blunting of the right costophrenic angle suggesting a small effusion. There is no evidence of pneumothorax or pulmonary edema. Included osseous structures appear largely unremarkable. IMPRESSION: Low lung volumes, no evidence of significant change. Small right pleural effusion is once again suggested. Assessment/Plan Assessment/Plan Assessment: 1. Elevated troponin - No evidence of acute ischemic event at the moment. Probable demand aggravated by renal dysfuntion. 2. Swollen painful right knee; ? gout 3. Worsening bilateral leg edema 4. History of CAD with 7 prior stents to the RCA and LCFX in 2002,2003,2004 5. HTN 6. CKD 7. HLD 8. 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 - Diurese with IV lasix once daily with close monitoring of I/Os and weights as well as renal function - No need to repeat echocardiogram at the present time. - Eventual outpatient pharmacologic nuclear stress test. Consult Acknowledgment - Thank you for your consult request.
--- NOTE | 2016-05-20 14:13 | NUR ---
PHARMACY CALLED ABOUT CHANGING TIME FOR SCAR PT STATES THAT HE TOOK DOSE [id number]
--- NOTE | 2016-05-20 14:15 | NUR ---
REPORT CALL/ TRANSPORT CALLED
[2016-05-20 15:47] VITALS: BP 88/50
[2016-05-20 16:53] VITALS: BP 100/60
[2016-05-20 19:14] VITALS: BP 92/50
[2016-05-20 20:56] VITALS: BP 96/40
[2016-05-20 22:41] VITALS: BP 112/48
--- NOTE | 2016-05-21 07:16 | PN- Housestaff ---
ABDIAS CARRERA,LEELA 05/21/16 0716: Subjective Follow-up For: Right knee arthritis under evaluation, probably gout MADONNA on CKD Demand ischemia Complaints: no complaints Subjective: Patient is seen and examined at bedside. He was able to walk around without any difficulty or pain in the right knee. He thinks that her swelling and the pain has subsided. He is having dry cough, which is affecting his sleep. He claims that he was well evaluated by Dr. Vidales/Dr. Franco, but nothing is helping him. Review of Systems Constitutional: Reports: no symptoms. Cardiovascular: Reports: peripheral edema. Denies: chest pain, edema, orthopena, palpitations. Respiratory: Reports: cough. Denies: hemoptysis, orthopnea, short of breath, sputum production. Gastrointestinal: Reports: distention. Denies: abdominal pain, bloating, constipation, diarrhea. Genitourinary: Denies: dysuria. Musculoskeletal: Reports: gout. Denies: back pain, joint pain. Skin: Reports: erythema (right knee). Neurological/Psychological: Denies: no symptoms. Objective Last 24 Hrs of Vital Signs/I&O Vital Signs Date Time Temp Pulse Resp B/P Pulse O2 O2 Flow FiO2 Ox Delivery Rate 05/21 0854 120 120/60 05/21 0851 98.2 139 20 124/61 94 Room Air 05/21 0848 98.2 139 20 124/61 94 Room Air 05/21 0000 97 Room Air 05/20 2241 98.3 109 18 112/48 94 Room Air 05/20 2100 94 96/40 05/20 2056 94 96/40 05/20 1914 92 92/50 05/20 1846 Room Air 05/20 1653 109 100/60 05/20 1547 97.8 94 18 88/50 94 Room Air 05/20 1333 97.4 100 18 121/57 95 Room Air 05/20 1225 97.5 100 20 98/58 94 Room Air 05/20 1138 97.0 106 20 85/47 93 Room Air Intake & Output 05/21 1600 05/21 0800 05/21 0000 Intake Total 360 600 Output Total 600 1 Balance -240 599 Intake, Oral 360 600 Output, Other 1 Output, Urine 600 Patient 83.007 kg 85.275 kg Weight Physical Exam General Appearance: Alert, Oriented X3, Cooperative, No Acute Distress Skin: Erythema on right knee HEENT: Atraumatic, PERRLA, EOMI Cardiovascular: Normal S1, Normal S2, irregular Lungs: bilateral basal crepts Abdomen: Soft, No Tenderness, distended Neurological: Normal Gait, Normal Speech Extremities: bilateral ankle edema, pitting Vascular: Normal Pulses, Pulses Symmetrical Assessment/Plan Assessment: Patient is an 85-year-old male with a past medical history significant for CAD s /p stent, TIA, diastolic/systolic heart failure, hypertension, hyperlipidemia , AF on Eliquis s/p pacemaker and ICD placement, lung cancer status post RT/ surgery, prostate cancer status post RT,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 Pertinent labs- Uric acid -6.8, creatinine -2.6, BUN -74 Plan - * We will start patient on prednisone 40 mgs in divided doses, followed by tapering over 10 days * We will continue tab allopurinol 100 mgs PO OD * We will continue tab Colchicine 0.6 mgs PO OD * We will start patient on Spiriva, as advised by Dr. Franco * TRC/nebulization * We will hold both losartan and lasix for today. * We will recheck BEP tomorrow and decide further Lasix and nephrology consult. * With the patient developed high heart rate/atrial fibrillation than we will consider IV Cardizem * CODE STATUS-full code * Diet-heart healthy diet, avoid red meats * DVT prophylaxis-ALP S/E Eliquisliquis Problem List: 1. Gouty arthritis 2. MADONNA (acute kidney injury) 3. LUNG CANCER 4. CONGESTIVE HEART FAILURE 5. Coronary artery disease Pain Ratin Pain Location: Right knee Pain Goal: Remain pain free Pain Plan: [id number], avoid NSAIDs Tomorrow's Labs & Rationales: BEP DVT/Prophylaxis: mechanical, pharmacological AUSTEN REID MD 05/21/16 0950: Attending MD Review Statement Attending Statement Attending MD Statement: examined this patient, discuss w/resident/PA/JOGGLE PRESS OPERATOR, agreed w/resident/PA/JOGGLE PRESS OPERATOR, reviewed EMR data (avail), discussed with nursing, reviewed images Attending Assessment/Plan: Overall patient's knee is better. Dr. Duarte saw it and felt this is all likely an acute gouty arthritis. Of note he did get 125 mg of Solu-Medrol yesterday and he is now on 20 twice a day of Prednisone and we noted Dr. Duarte recommendations of the 10 day taper. His pressure is also better but his heart rate is high. He is in the 120s to 150s and I am concerned about this. Yesterday because his pressure was on the low side they held his carvedilol but he did get it today. We will talk to Dr. Vidales. He has chronic systolic heart failure with an EF of 45% with some hypokinetic ramirez but that is unchanged overall
[2016-05-21 07:52] LABS: ABSOLUTE BASOPHIL COUNT 0 /CUMM (0.0-0.2); ABSOLUTE EOSINOPHIL COUNT 0 /CUMM (0.0-0.7); ABSOLUTE GRANULOCYTE CT 20.9 /CUMM (1.4-6.5); ABSOLUTE LYMPH COUNT 0.6 /CUMM (1.2-3.4); ABSOLUTE MONOCYTE COUNT 0.5 /CUMM (0.10-0.60); BASOPHIL % 0 % (0.0-2.0); EOSINOPHIL % 0.1 % (0-5); GRANULOCYTE % 94.6 % (42.2-75.2); HEMATOCRIT 31.3 % (42-52); MEAN CORPUSCULAR HGB 31.4 PG (27.0-31.0); MEAN CORPUSCULAR HGB CONC 33.7 G/DL (33.0-37.0); MEAN CORPUSCULAR VOLUME 93.1 FL (80.0-94.0); MEAN PLATELET VOLUME 9.9 FL (7.4-10.4); PLATELET COUNT 157 /CUMM (130-400); RBC DISTRIBUTION WIDTH 13.7 % (11.5-14.5); RED BLOOD CELL CT 3.36 /CUMM (4.70-6.10)
--- NOTE | 2016-05-21 08:21 | PN- Student ---
RICARDO MAE 05/21/16 0748: Subjective Subjective: Patient is a 85 year old male with past medical history of gout, atrial fibrilation with pacemaker, COPD, congestive heart faliure, lung cancer, melanoma, prostate cancer, TIA, hypercholesterolemia, and hypertension who presented to the EM with right knee pain on 05/20/15. Patient noticed that his ankles were swollen two days before the knee pain started. The following morning the patient woke up with a swollen, red, hot, right knee and a mildly painful left knee, and was unable to ambulate. Patient reports that he normally walks with a cane which he uses for stability for his right knee. He was unable to walk using the cane and was unable to walk up the stairs. Patient reports that the pain was sharp 10/10. Patient reports that the pain lasted for five hours until he was brought to the emergency room where he was given pain medication which caused the pain to subside from a 5/10 to a 3/10. Patient was previously admitted on the hospital from May 05 to May 09 for a right knee gout attack and was discharged home on Prednisone 50 mg as well as Colchicine and Allopurinol. Patient reports that he was completing his prednisone taper and taking allopurinol, but was not taking his colchicine. Today patient reports feeling much better. He denies any pain and says that he has been ambulating this morning. He reports that the right knee feels "tight" but otherwise there is no swelling or erythema. Past Medical History Patient reports a history of gout for the past few years. Patient reports that he mostly gets the attack on his big toes every few months and that his right toe had to be drained in the past. Patient also has a past history of atrial fibrilation on eliquis and has a pacemaker which was placed in 2010, and replaced in 2013. Patient also has a history of COPD, congestive heart faliure, TIA post stent placement, CAD with stent placement, melanoma, prostate CA with 26 weeks of radiation therapy, right side lung CA with upper and lower lung removal. Patient also has a history of hypercholesterolemia, and hypertension. Past Surgical History Patient had seven stent placements for CAD. Patient also has two left knee joint replacements and right knee arthoscopy. Patient also had lung neoplams removal from right upper and lower lobe. Patient had melanoma removal from his face bilaterally. Patient also had his appendix removed in 1992. Medications Current Medications Sig/Jaswinder Start time Last Medication Dose Route Stop Time Status Admin Acetaminophen 650 MG Q6 05/20 1800 DC PO Acetaminophen 650 MG Q6 PRN 05/20 1530 AC PO Allopurinol 100 MG DAILY 05/21 1000 AC PO Apixaban 2.5 MG Q12H 05/20 1730 AC 05/21 PO 0556 Apixaban 2.5 MG Q12H 05/20 1400 CAN PO Atorvastatin Calcium 20 MG 1700 05/20 1700 AC 05/20 PO 1723 Budesonide/ 2 PUF BID 05/20 2200 AC 05/20 Formoterol Fumarate INH 2100 Carvedilol 12.5 MG BID 05/20 2200 AC PO Carvedilol 12.5 MG BID 05/20 1538 DC PO Colchicine 600 MCG DAILY 05/21 1000 AC PO Colchicine 600 MCG ONCE ONE 05/20 1000 DC 05/20 PO 05/20 1001 1006 Docusate Sodium 100 MG DAILY 05/21 1000 AC PO Furosemide 40 MG DAILY 05/21 1000 CAN PO Furosemide 40 MG DAILY 05/21 1000 AC IV Heparin Sodium 5,000 UNIT Q8 05/20 1400 CAN (Porcine) SC Ketorolac 0 .STK-MED ONE 05/20 1003 DC Tromethamine .ROUTE Ketorolac 15 MG ONCE ONE 05/20 1000 DC 05/20 Tromethamine IV 05/20 1001 1006 Levothyroxine Sodium 0.025 MG DAILY AC 05/21 0700 AC 05/21 PO 0556 Methylprednisolone 0 .STK-MED ONE 05/20 1003 DC .ROUTE Methylprednisolone 125 MG ONCE ONE 05/20 1000 DC 05/20 IV 05/20 1001 1006 Morphine Sulfate 1 MG Q4P PRN 05/20 1500 AC IV Omeprazole 40 MG 1/2H B/BREAKF/DINNER 05/20 1630 AC 05/21 PO 0556 Oxycodone/ 1 TAB Q6P PRN 05/20 1500 AC Acetaminophen PO Prednisone 20 MG BID 05/21 1000 AC PO Prednisone 5 MG BID 05/20 2200 CAN PO Sodium Chloride 250 ML BOLUS ONE 05/20 1145 DC 05/20 IV 05/20 1244 1222 Allergies No Known Drug Allergies Family History Mother: heart faliure Father: Diabetes Mellitus Brother: Dementia and cancer Social History 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 Patient reports that he was exposed to asbestos during the tiem he worked as a picture painter. Patient is a former smoker, he smoked for four years 50 years ago in his teens. Patient also reports heavily using alcohol when he was a teenager briefly, but only drinks during special occasions now. Objective Objective: Patient was observed at bedside this morning. He apperared comfortable and was oriented x3. Patient's temp was 98.3, pulse 109, RR 18, BP 112/48, Pulse ox 97 on RA. Vital Signs Date Time Temp Pulse Resp B/P Pulse O2 O2 Flow FiO2 Ox Delivery Rate 05/21 0000 97 Room Air 05/20 2241 98.3 109 18 112/48 94 Room Air 05/20 2100 94 96/40 05/20 2056 94 96/40 05/20 1914 92 92/50 05/20 1846 Room Air 05/20 1653 109 100/60 05/20 1547 97.8 94 18 88/50 94 Room Air 05/20 1333 97.4 100 18 121/57 95 Room Air 05/20 1225 97.5 100 20 98/58 94 Room Air 05/20 1138 97.0 106 20 85/47 93 Room Air 05/20 0915 95 Room Air 05/20 0848 98.2 71 18 91/58 99 Room Air Intake & Output 05/21 1600 05/21 0800 05/21 0000 Intake Total 360 600 Output Total 600 1 Balance -240 599 Intake, Oral 360 600 Output, Other 1 Output, Urine 600 Patient 183 lb 188 lb Weight Physcial Exam Consititutional: Alert and oriented x3 Cardiovascular: Pulses irregularly irregular, tachycardic Lungs: Decreased breath sounds on right lung Abdomen: Soft non-tender Extremeties: +2 edema bilaterally, full range on motion in left leg. Unable to flex right knee above 100 degrees. slight erythema and mildly warm right knee compared to left knee. Results Results: Laboratory Tests 05/21/16 0640: Anion Gap 12, Estimated GFR 24 L, BUN/Creatinine Ratio 28.5 H, Total Bilirubin 0.6, Direct Bilirubin 0.3, AST 20, ALT 31, Alkaline Phosphatase 83, Total Protein 5.7 L, Albumin 2.8 L, CBC w Diff Pending, WBC Pending, RBC Pending, Hgb Pending, Hct Pending, MCV Pending, MCH Pending, RDW Pending, Plt Count Pending, MPV Pending, Gran % Pending, Lymphocytes % Pending, Monocytes % Pending , Eosinophils % Pending, Basophils % Pending, Absolute Granulocytes Pending, Absolute Lymphocytes Pending, Absolute Monocytes Pending, Absolute Eosinophils Pending, Absolute Basophils Pending, [facility] MCHC Pending 05/20/16 2200: Troponin I 0.13 *H 05/20/16 1630: Troponin I 0.15 *H 05/20/16 1011: Anion Gap 8, Estimated GFR 27 L, BUN/Creatinine Ratio 24.8, Glucose 170 H, Uric Acid 6.8, Calcium 8.7, Magnesium 2.1, Total Bilirubin 1.5 H, AST 24, ALT 32, Alkaline Phosphatase 86, Troponin I 0.18 *H, C-React Prot High Sens > 15.0 H, Mmv-A-Ijpssyqbmdb Pept 3170 H, Total Protein 5.7 L, Albumin 2.9 L, Globulin 2.8, Albumin/Globulin Ratio 1.0 L, CBC w Diff MAN DIFF ORDERED, RBC 3.59 L, MCV 92.8, MCH 31.0, RDW 13.4, MPV 9.0, Gran % 87.2 H, Lymphocytes % 5.6 L, Monocytes % 7.0, Eosinophils % 0.1, Basophils % 0.1, Absolute Granulocytes 14.2 H, Segmented Neutrophils 81 H, Band Neutrophils 3, Absolute Lymphocytes 0.9 L, Lymphocytes 8 L, Monocytes 8, Absolute Monocytes 1.1 H, Absolute Eosinophils 0, Absolute Basophils 0, Platelet Estimate ADEQUATE, Anisocytosis 1+, PUBS MCHC 33.5, ESR Westergren 110 H
--- NOTE | 2016-05-21 08:33 | Cons- Rheumatology ---
General Information and HPI Consulting Request Date of Consult: 05/21/16 Requested By: JEANETTE CARRERA,AUSTEN Dotson Reason for Consult: Evaluate and manage gout Source of Information: patient, old records Exam Limitations: no limitations History of Present Illness: This is an 85-year-old gentleman with multiple medical problems including coronary artery disease, hypertension, gout, renal failure, and osteoarthritis. He was admitted to the hospital yesterday with the acute onset of pain in his right ankle and right knee. It should be noted that one month ago he was admitted to the hospital with a hot swollen knee that turned out to be probable gout. He was treated successfully with steroids and allopurinol. I left him on a lower dosage of prednisone as well as the allopurinol but I discontinued the colchicine in view of his renal failure. He denies pain or swelling of any of his other joints. There are also no systemic symptoms such as fever or rash. Allergies/Medications Allergies: Coded Allergies: caffeine (HEADACHES 05/05/16) Home Med List: Allopurinol 100 MG TABLET 1 TAB PO DAILY GOUT (Reported) Apixaban (Eliquis) 2.5 MG TAB 1 TAB PO Q12H BLOOD THINNER (Reported) Budesonide/Formoterol Fumarate (Symbicort 160-4.5 Mcg Inhaler) 10.2 GM HFA.AER.AD 2 PUF INH BIDP PRN BREATHING (Reported) Carvedilol (Coreg) 12.5 MG TABLET 1 TAB PO BID HTN Cholecalciferol (Vitamin D3) (Vitamin D3) 1,000 UNIT CAPSULE 1 CAP PO BID SUPPLEMENT (Reported) Cyanocobalamin/FA/Pyridoxine (Folbic Tablet) 1 EACH TABLET 1 TAB PO DAILY SUPPLEMENT (Reported) Docusate Sodium (Colace) 100 MG CAPSULE 1 CAP PO DAILY STOOL SOFTENER ( Reported) Esomeprazole (Nexium) 40 MG CAPSULE.DR 1 CAP PO BID GI (Reported) Furosemide 40 MG TAB 1 TAB PO DAILY DIURETIC (Reported) Levothyroxine Sodium 25 MCG TABLET 1 TAB PO DAILY AC THYROID (Reported) Losartan Potassium (Cozaar) 50 MG TABLET 1 TAB PO DAILY BP (Reported) Polyethylene Glycol 3350 (Clearlax) 17 GRAM/DOSE POWDER 0.5 CAP PO DAILY GI ( Reported) Prednisone 5 MG TABLET 1 TAB PO BID STEROID (Reported) Simvastatin (Zocor) 20 MG TAB 1 TAB PO QPM CHOLESTEROL (Reported) Review of Systems Review of Systems: 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 He has no symptoms to suggest renal colic either. Past History Travel History Traveled to [place] past 21 day No Medical History Blood Transfusion Hx: No Neurological: STROKE EENT: cataracts Cardiovascular: AFIB, CHF, [place], PACEMAKER, DEFIBRILAT HTN, HIGHCHOLESTEROL STEN Respiratory: LUNG CA Gastrointestinal: GERD Hepatic: NONE Renal: ? 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 Psychosocial History Where Do You Live? Home Services at Home: None Smoking Status: Former Smoker Functional Ability ADLs Independent: dressing, eating, toileting, bathing. Ambulation: independent, cane, non-ambulatory IADLs Independent: shopping, housework, finances, food prep, telephone, transportation , medication admin. Exam & Diagnostic Data Vital Signs and I&O Vital Signs Date Time Temp Pulse Resp B/P Pulse O2 O2 Flow FiO2 Ox Delivery Rate 05/21 0000 97 Room Air 05/20 2241 98.3 109 18 112/48 94 Room Air 05/20 2100 94 96/40 05/20 2056 94 96/40 05/20 1914 92 92/50 05/20 1846 Room Air 05/20 1653 109 100/60 05/20 1547 97.8 94 18 88/50 94 Room Air 05/20 1333 97.4 100 18 121/57 95 Room Air 05/20 1225 97.5 100 20 98/58 94 Room Air 05/20 1138 97.0 106 20 85/47 93 Room Air 05/20 0915 95 Room Air 05/20 0848 98.2 71 18 91/58 99 Room Air Intake & Output 05/21 1600 05/21 0800 05/21 0000 Intake Total 360 600 Output Total 600 1 Balance -240 599 Intake, Oral 360 600 Output, Other 1 Output, Urine 600 Patient 183 lb 188 lb Weight Physical Exam: On examination he is well-developed well-nourished intact gentleman. He is in no distress. His hands wrists elbows and shoulders have good range of motion without signs of inflammation his right knee has a small effusion but is no longer red as described 24 hours ago. He is able to flex to approximately 100. His left knee has scar from previous arthroplasty. His ankles reveal fairly good range of motion but there is 2+ pitting edema over the right ankle and 1+ pitting edema over the left ankle Assessment/Plan Assessment: The abrupt onset of pain and swelling of the right knee is strongly suggestive of a recurrent gout attack. Should be noted he was given a large dosage of Solu -Medrol in the ER about 24 hours ago and is currently improved. He has some edema of his ankles from peripheral venous disease as well as renal failure. His uric acid level is down to 6.8 and had been 9.1 weeks ago. Recommendations: I would recommend a another course of prednisone of 40 mg in divided doses for the next 2 days and then to be tapered over a 10 day period. I would also maintain him on the allopurinol 100 mg daily and I would keep him at this time on colchicine 0.6 mg daily. His renal function will be carefully monitored as an outpatient. Consult Acknowledgment - Thank you for your consult request.
[2016-05-21 08:48] VITALS: BP 124/61
[2016-05-21 08:51] VITALS: BP 124/61
--- NOTE | 2016-05-21 09:01 | NUR ---
HEART RATE UP INTO 130'S BP 120/60. CARVEDILOL GIVEN ORDERED. DR. CALERO NOTIFIED. WILL CONTINUE TO MONITOR HEART RATE.
--- NOTE | 2016-05-21 09:33 | Patient Discharge Instructions ---
Discharge Instructions General Discharge Information You were seen/treated for: Right knee arthritis. Probably due to gout Special Instructions: Please follow-up with Dr. Duarte within a week of discharge. Please follow-up with Dr. Franco within a week of discharge. Please follow-up with Dr. Vidales within a week of discharge,for further management and nuclear stress test. Diet Recommended Diet: as advised by your dietitian Activity Full Activity/No Limits: No (as tolerated) Acute Coronary Syndrome Inclusion Criteria At DC or during hospital stay patient has or had the following: ACS DIAGNOSIS No Discharge Core Measures Meds if any: Prescribed or Continued at Discharge Meds if any: NOT Prescribed or Continued at Discharge Congestive Heart Failure Inclusion Criteria At DC or during hospital stay patient has or had the following: CHF DIAGNOSIS No Discharge Core Measures Meds if any: Prescribed or Continued at Discharge Meds if any: NOT Prescribed or Continued at Discharge Cerebrovascular accident Inclusion Criteria At DC or during hospital stay patient has or had the following: CVA/TIA Diagnosis No Discharge Core Measures Meds if any: Prescribed or Continued at Discharge Meds if any: NOT Prescribed or Continued at Discharge Venous thromboembolism Inclusion Criteria VTE Diagnosis No VTE Type NONE VTE Confirmed by (Test) NONE Discharge Core Measures - Per Current guidelines, there needs to be overlap - treatment for the first 5 days of Warfarin therapy. - If discharged on Warfarin prior to 5 days of - overlap therapy, the patient will need to be - assessed for post discharge needs including - *Post discharge parental anticoagulation - *Warfarin and/or parental anticoagulation education - *Follow up date to check INR post discharge At least 5 days overlap therapy as Inpatient No Meds if any: Prescribed or Continued at Discharge Note: Overlap Therapy is Warfarin and Anticoagulant Meds if any: NOT Prescribed or Continued at Discharge
[2016-05-21] MEDS ORDERED: PREDNISONE5 M1 PO ×2 (09:47→09:52)
--- NOTE | 2016-05-21 11:39 | Cons- Pulmonary ---
General Information and HPI Consulting Request Date of Consult: 05/21/16 Requested By: Dr. Sifuentes Reason for Consult: cough Source of Information: patient Exam Limitations: no limitations History of Present Illness: 85 year old man. Admitted with knee pain and leg edema. Consultation for cough. The cough has been present for years and has not worsened. The patient has restarted his Spiriva recently and albuterol therapy. History of lung cancer. CAT scan of the chest performed in April 2016 RUL lobectomy, RLL scarring. Multiple nodules with stability. Stable scarring in both lower lobes and he status post right upper lobectomy. His Does not wish to use CPAP therapy knowing risks. Dyspnea on exertion and now at rest. Recently stopped spiriva and resumed a few weeks ago. Cough has been persistent and worsening. White phlegm, no fevers, no chills, no travel history, no sick contacts. He has a nebulizer that he uses intermittently, however instructed to use it 3 times daily. Has had PFTs 07/2014 with mild obstruction, severe reduction in DLCO and borderline exertional desaturation. He also has had an evaluation of his swallowing which was normal to date. Has seen Dr. Fisher in the past. He has had a diagnosis of obstructive sleep apnea, however he has not used any equipment and is clear that he has no intention to get therapy and declines therapy for HORTENSIA knowing the risks. Intermittent leg swelling but is now on Lasix. On Eliquis for a.fib. Recent exacerbation of gout, now controlled. Creatinine 2 and is around baseline. Allergies/Medications Allergies: Coded Allergies: caffeine (HEADACHES 05/05/16) Home Med List: Allopurinol 100 MG TABLET 1 TAB PO DAILY GOUT (Reported) Apixaban (Eliquis) 2.5 MG TAB 1 TAB PO Q12H BLOOD THINNER (Reported) Budesonide/Formoterol Fumarate (Symbicort 160-4.5 Mcg Inhaler) 10.2 GM HFA.AER.AD 2 PUF INH BIDP PRN BREATHING (Reported) Carvedilol (Coreg) 12.5 MG TABLET 1 TAB PO BID HTN Cholecalciferol (Vitamin D3) (Vitamin D3) 1,000 UNIT CAPSULE 1 CAP PO BID SUPPLEMENT (Reported) Cyanocobalamin/FA/Pyridoxine (Folbic Tablet) 1 EACH TABLET 1 TAB PO DAILY SUPPLEMENT (Reported) Docusate Sodium (Colace) 100 MG CAPSULE 1 CAP PO DAILY STOOL SOFTENER ( Reported) Esomeprazole (Nexium) 40 MG CAPSULE.DR 1 CAP PO BID GI (Reported) Furosemide 40 MG TAB 1 TAB PO DAILY DIURETIC (Reported) Levothyroxine Sodium 25 MCG TABLET 1 TAB PO DAILY AC THYROID (Reported) Losartan Potassium (Cozaar) 50 MG TABLET 1 TAB PO DAILY BP (Reported) Polyethylene Glycol 3350 (Clearlax) 17 GRAM/DOSE POWDER 0.5 CAP PO DAILY GI ( Reported) Prednisone 5 MG TABLET 1 TAB PO BID STEROID (Reported) Prednisone 5 MG TABLET 1 TAB PO SI acute gout 5mg 4tab 2times a day 05/22/2016 5mg 3tab 2times a day 05/23/2016 to 05/24/2016 5mg 2tab 2times a day 05/25/2016 to 05/26/2016 5mg 1tab 2times a day 05/27/2016, continue till you meet with Dr. Duarte On Take 06/16-06/18 50 MG 06/16-06/18 40 MG 06/16-06/18 30 MG 06/16-06/18 20 MG 06/16-06/18 10 MG Then Stop Simvastatin (Zocor) 20 MG TAB 1 TAB PO QPM CHOLESTEROL (Reported) Current Medications: Current Medications Sig/Jaswinder Start time Last Medication Dose Route Stop Time Status Admin Acetaminophen 650 MG Q6 05/20 1800 DC PO Acetaminophen 650 MG Q6 PRN 05/20 1530 AC PO Allopurinol 100 MG DAILY 05/21 1000 AC 05/21 PO 0854 Apixaban 2.5 MG Q12H 05/20 1730 AC 05/21 PO 0556 Apixaban 2.5 MG Q12H 05/20 1400 CAN PO Atorvastatin Calcium 20 MG 1700 05/20 1700 AC 05/20 PO 1723 Budesonide/ 2 PUF BID 05/20 2200 AC 05/21 Formoterol Fumarate INH 0854 Carvedilol 12.5 MG BID 05/20 2200 AC 05/21 PO 0854 Carvedilol 12.5 MG BID 05/20 1538 DC PO Colchicine 600 MCG DAILY 05/21 1000 AC 05/21 PO 0854 Docusate Sodium 100 MG DAILY 05/21 1000 AC 05/21 PO 0854 Furosemide 40 MG DAILY 05/21 1000 CAN PO Furosemide 40 MG DAILY 05/21 1000 CAN IV Heparin Sodium 5,000 UNIT Q8 05/20 1400 CAN (Porcine) SC Levothyroxine Sodium 0.025 MG DAILY AC 05/21 0700 AC 05/21 PO 0556 Morphine Sulfate 1 MG Q4P PRN 05/20 1500 AC IV Omeprazole 40 MG 1/2H B/BREAKF/DINNER 05/20 1630 AC 05/21 PO 0556 Oxycodone/ 1 TAB Q6P PRN 05/20 1500 AC Acetaminophen PO Prednisone 20 MG BID 05/21 1000 AC 05/21 PO 0854 Prednisone 5 MG BID 05/20 2200 CAN PO Sodium Chloride 250 ML BOLUS ONE 05/20 1145 DC 05/20 IV 05/20 1244 1222 Review of Systems Comments 18 point Review of Systems performed. Positive and negative pertinent findings are deliniated in the HPI. Otherwise the ROS is negative. Past History Travel History Traveled to [place] past 21 day No Medical History Blood Transfusion Hx: No Neurological: STROKE EENT: cataracts Cardiovascular: AFIB, CHF, CO, PACEMAKER, DEFIBRILAT HTN, HIGHCHOLESTEROL STEN Respiratory: LUNG CA Gastrointestinal: GERD Hepatic: NONE Renal: ? 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 Psychosocial History Where Do You Live? Home Services at Home: None Smoking Status: Former Smoker Functional Ability ADLs Independent: dressing, eating, toileting, bathing. Ambulation: independent, cane, non-ambulatory IADLs Independent: shopping, housework, finances, food prep, telephone, transportation , medication admin. Exam & Diagnostic Data Last 24 Hrs of Vital Signs/I&O Vital Signs Date Time Temp Pulse Resp B/P Pulse O2 O2 Flow FiO2 Ox Delivery Rate 05/21 0854 120 120/60 05/21 0851 98.2 139 20 124/61 94 Room Air 05/21 0848 98.2 139 20 124/61 94 Room Air 05/21 0000 97 Room Air 05/20 2241 98.3 109 18 112/48 94 Room Air 05/20 2100 94 96/40 05/20 2056 94 96/40 05/20 1914 92 92/50 05/20 1846 Room Air 05/20 1653 109 100/60 05/20 1547 97.8 94 18 88/50 94 Room Air 05/20 1333 97.4 100 18 121/57 95 Room Air 05/20 1225 97.5 100 20 98/58 94 Room Air 05/20 1138 97.0 106 20 85/47 93 Room Air Intake & Output 05/21 1600 05/21 0800 05/21 0000 Intake Total 360 600 Output Total 600 1 Balance -240 599 Intake, Oral 360 600 Output, Other 1 Output, Urine 600 Patient 183 lb 188 lb Weight Physical Exam Other Physical Findings: General - Alert, awake and oriented HEENT - normocephalic, atraumatic Cardiovascular - S1, S2 Lungs - bilateral bibasilar rhonchi Abdomen - soft, bowel sounds positive, no tenderness Extremities - edematous Last 48 Hrs of Labs/Pro: Laboratory Tests 05/21/16 0640: Anion Gap 12, Estimated GFR 24 L, BUN/Creatinine Ratio 28.5 H, Total Bilirubin 0.6, Direct Bilirubin 0.3, AST 20, ALT 31, Alkaline Phosphatase 83, Total Protein 5.7 L, Albumin 2.8 L, CBC w Diff MAN DIFF ORDERED, RBC 3.36 L, MCV 93.1, MCH 31.4 H, RDW 13.7, MPV 9.9, Gran % 94.6 H, Lymphocytes % 2.9 L, Monocytes % 2.4, Eosinophils % 0.1, Basophils % 0 L, Absolute Granulocytes 20.9 H, Segmented Neutrophils 93 H, Band Neutrophils 3, Absolute Lymphocytes 0.6 L , Lymphocytes 4 L, Absolute Monocytes 0.5, Absolute Eosinophils 0, Absolute Basophils 0, Platelet Estimate ADEQUATE, Polychromasia 1+, Anisocytosis 1+, PUBS MCHC 33.7 05/20/16 2200: Troponin I 0.13 *H 05/20/16 1630: Troponin I 0.15 *H 05/20/16 1011: Anion Gap 8, Estimated GFR 27 L, BUN/Creatinine Ratio 24.8, Glucose 170 H, Uric Acid 6.8, Calcium 8.7, Magnesium 2.1, Total Bilirubin 1.5 H, AST 24, ALT 32, Alkaline Phosphatase 86, Troponin I 0.18 *H, C-React Prot High Sens > 15.0 H, Wsp-P-Pjajyhcyluz Pept 3170 H, Total Protein 5.7 L, Albumin 2.9 L, Globulin 2.8, Albumin/Globulin Ratio 1.0 L, CBC w Diff MAN DIFF ORDERED, RBC 3.59 L, MCV 92.8, MCH 31.0, RDW 13.4, MPV 9.0, Gran % 87.2 H, Lymphocytes % 5.6 L, Monocytes % 7.0, Eosinophils % 0.1, Basophils % 0.1, Absolute Granulocytes 14.2 H, Segmented Neutrophils 81 H, Band Neutrophils 3, Absolute Lymphocytes 0.9 L, Lymphocytes 8 L, Monocytes 8, Absolute Monocytes 1.1 H, Absolute Eosinophils 0, Absolute Basophils 0, Platelet Estimate ADEQUATE, Anisocytosis 1+, PUBS MCHC 33.5, ESR Westergren 110 H Assessment/Plan Impression/Plan: Impression 85-year-old man with a history of COPD, atrial fibrillation, pulmonary nodules, obstructive sleep apnea and congestive heart failure. Presents with knee pain and leg edema. His COPD appears to be at baseline. The cough maybe related to fluid congestion/ post nasal drip, etc. It is chronic and patient is happy at his baseline at this point. Plan -resume rheaiva -trc/nebs -ok for dc from pulmonary perspective -will see in office Thank you in allowing me to participate in the care of this patient. I will continue to follow along with the patient's progress. Please do not hesitate to call about any questions or issues. Consult Acknowledgment - Thank you for your consult request.
[2016-05-21 12:18] VITALS: BP 110/58
[2016-05-21 16:41] VITALS: BP 109/59
--- NOTE | 2016-05-21 19:50 | PN- Cardiology ---
Subjective Subjective: Doing OK today with less knee pain. Objective Vital Signs and I&Os Vital Signs Date Time Temp Pulse Resp B/P Pulse O2 O2 Flow FiO2 Ox Delivery Rate 05/21 1641 97.9 104 18 109/59 94 Room Air 05/21 1600 92 Room Air 05/21 1218 109 110/58 05/21 0854 120 120/60 05/21 0851 98.2 139 20 124/61 94 Room Air 05/21 0848 98.2 139 20 124/61 94 Room Air 05/21 0000 97 Room Air 05/20 2241 98.3 109 18 112/48 94 Room Air 05/20 2100 94 96/40 05/20 2056 94 96/40 Intake & Output 05/21 1600 05/21 0800 05/21 0000 05/20 1600 05/20 0800 05/20 0000 Intake Total 400 360 600 250 Output Total 600 1 Balance 400 -240 599 250 Intake, IV 250 Intake, Oral 400 360 600 0 Output, Other 1 Output, Urine 600 Patient 183 lb 188 lb 188 lb Weight Current Medications: Current Medications Sig/Jaswinder Start time Last Medication Dose Route Stop Time Status Admin Acetaminophen 650 MG Q6 PRN 05/20 1530 AC PO Allopurinol 100 MG DAILY 05/21 1000 AC 05/21 PO 0854 Apixaban 2.5 MG Q12H 05/20 1730 AC 05/21 PO 1743 Atorvastatin Calcium 20 MG 1700 05/20 1700 AC 05/21 PO 1743 Budesonide/ 2 PUF BID 05/20 2200 AC 05/21 Formoterol Fumarate INH 0854 Carvedilol 12.5 MG BID 05/20 2200 AC 05/21 PO 0854 Colchicine 600 MCG DAILY 05/21 1000 AC 05/21 PO 0854 Docusate Sodium 100 MG DAILY 05/21 1000 AC 05/21 PO 0854 Furosemide 40 MG DAILY 05/21 1000 CAN IV Levothyroxine Sodium 0.025 MG DAILY AC 05/21 0700 AC 05/21 PO 0556 Morphine Sulfate 1 MG Q4P PRN 05/20 1500 AC IV Omeprazole 40 MG 1/2H B/BREAKF/DINNER 05/20 1630 AC 05/21 PO 1637 Oxycodone/ 1 TAB Q6P PRN 05/20 1500 AC Acetaminophen PO Patient Medication 1 ED .STK-MED ONE 05/21 1353 DC Teaching ED 05/21 1354 Prednisone 20 MG BID 05/21 1000 AC 05/21 PO 0854 Tiotropium Maple 1 PUF DAILY 05/21 1601 AC INH Results Last 48 Hrs of Labs/Mics: Laboratory Tests 05/21/16 0640: Anion Gap 12, Estimated GFR 24 L, BUN/Creatinine Ratio 28.5 H, Total Bilirubin 0.6, Direct Bilirubin 0.3, AST 20, ALT 31, Alkaline Phosphatase 83, Total Protein 5.7 L, Albumin 2.8 L, CBC w Diff MAN DIFF ORDERED, RBC 3.36 L, MCV 93.1, MCH 31.4 H, RDW 13.7, MPV 9.9, Gran % 94.6 H, Lymphocytes % 2.9 L, Monocytes % 2.4, Eosinophils % 0.1, Basophils % 0 L, Absolute Granulocytes 20.9 H, Segmented Neutrophils 93 H, Band Neutrophils 3, Absolute Lymphocytes 0.6 L , Lymphocytes 4 L, Absolute Monocytes 0.5, Absolute Eosinophils 0, Absolute Basophils 0, Platelet Estimate ADEQUATE, Polychromasia 1+, Anisocytosis 1+, PUBS MCHC 33.7 05/20/16 2200: Troponin I 0.13 *H 05/20/16 1630: Troponin I 0.15 *H 05/20/16 1011: Anion Gap 8, Estimated GFR 27 L, BUN/Creatinine Ratio 24.8, Glucose 170 H, Uric Acid 6.8, Calcium 8.7, Magnesium 2.1, Total Bilirubin 1.5 H, AST 24, ALT 32, Alkaline Phosphatase 86, Troponin I 0.18 *H, C-React Prot High Sens > 15.0 H, Eln-B-Pvpskilxkbf Pept 3170 H, Total Protein 5.7 L, Albumin 2.9 L, Globulin 2.8, Albumin/Globulin Ratio 1.0 L, CBC w Diff MAN DIFF ORDERED, RBC 3.59 L, MCV 92.8, MCH 31.0, RDW 13.4, MPV 9.0, Gran % 87.2 H, Lymphocytes % 5.6 L, Monocytes % 7.0, Eosinophils % 0.1, Basophils % 0.1, Absolute Granulocytes 14.2 H, Segmented Neutrophils 81 H, Band Neutrophils 3, Absolute Lymphocytes 0.9 L, Lymphocytes 8 L, Monocytes 8, Absolute Monocytes 1.1 H, Absolute Eosinophils 0, Absolute Basophils 0, Platelet Estimate ADEQUATE, Anisocytosis 1+, PUBS MCHC 33.5, ESR Westergren 110 H Assessment/Plan Assessment/Plan Assessment: 1. Elevated troponin - No evidence of acute ischemic event at the moment. Probable demand aggravated by renal dysfuntion. 2. Swollen painful right knee; ? gout 3. Worsening bilateral leg edema 4. History of CAD with 7 prior stents to the RCA and LCFX in 2002,2003,2004 5. HTN 6. CKD 7. HLD 8. Ischemic CM with EF 45% Recommendations: - Episodes of elevated heart rate noted related to breakthrough AF with elevated rates. - Continue current carvedilol doses for now. - If elevated heart rate becomes an issue, start IV cardizem to optimize rate control. Ultimately, if BP stable, consider increasing Carvedilol dose for improved rate control. - In view of known CAD and history of multiple stents in the past would arrange pharmacologic nuclear stress test at some point, probably as outpatient to better exclude ischemia. - Worsening renal function numbers noted, ? secondary to diuretics, transient hypotension. etc. If no change, please have Nephrology input arranged. Continue telemetry? No
[2016-05-21 23:30] VITALS: BP 114/58
--- NOTE | 2016-05-22 07:06 | PN- Housestaff ---
ABDIAS CARRERA,LEELA 05/22/16 0706: Subjective Follow-up For: Right knee arthritis probably gout MADONNA on CKD Demand ischemia Complaints: no complaints Tele-Events Since Last Visit: Overnight his HR is between 73 - 92.There are PVC's, and 93 - 100% pacing. Subjective: Patient is seen and examined at the bed side.he does not have any active complain. He denies of pain in the right knee. He was able to walk without any difficulty. He denies of any palpitation, chest pain, headache, dizziness, fever , chills, anorexia. Review of Systems Constitutional: Reports: no symptoms. Objective Last 24 Hrs of Vital Signs/I&O Vital Signs Date Time Temp Pulse Resp B/P Pulse O2 O2 Flow FiO2 Ox Delivery Rate 05/21 2330 97.8 92 18 114/58 94 Room Air 05/21 2059 121 114/58 05/21 1641 97.9 104 18 109/59 94 Room Air 05/21 1600 92 Room Air 05/21 1218 109 110/58 05/21 0854 120 120/60 05/21 0851 98.2 139 20 124/61 94 Room Air 05/21 0848 98.2 139 20 124/61 94 Room Air Intake & Output 05/22 0800 05/22 0000 05/21 1600 Intake Total 120 640 400 Output Total 200 175 Balance -80 465 400 Intake, Oral 120 640 400 Output, Urine 200 175 Patient 84.141 kg Weight Physical Exam General Appearance: Alert, Oriented X3, Cooperative, No Acute Distress Skin: No Rashes, No Breakdown Neck: Supple, No JVD Cardiovascular: Regular Rate, Normal S1, Normal S2 Lungs: mild basilar crackles Abdomen: Normal Bowel Sounds, Soft, No Tenderness Neurological: Normal Gait, Normal Speech, Strength at 5/5 X4 Ext, Normal Tone Extremities: No Clubbing, No Cyanosis, Normal Pulses, bilateral ankle edema Vascular: Normal Pulses, Pulses Symmetrical Assessment/Plan Assessment: Patient is an 85-year-old male with a past medical history significant for CAD s /p stent, TIA, diastolic/systolic heart failure, hypertension, hyperlipidemia , AF on Eliquis s/p pacemaker and ICD placement, lung cancer status post RT/ surgery, prostate cancer status post RT,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 Pertinent labs- Uric acid -6.8, creatinine -, BUN - Plan - * We will continue prednisone 40 mgs in divided doses, followed by tapering over 10 days * We will continue tab allopurinol 100 mgs PO OD * We will continue tab Colchicine 0.6 mgs PO OD * We will continue Spiriva, as advised by Dr. Franco * TRC/nebulization * We will hold both losartan and lasix, and decide after checking the BEP today. * If the patient developed high heart rate/atrial fibrillation than we will consider IV Cardizem * CODE STATUS-full code * Diet-heart healthy diet, avoid red meats * DVT prophylaxis-ALP S/E Eliquisliquis Problem List: 1. Gouty arthritis 2. MADONNA (acute kidney injury) 3. Atrial fibrillation Pain Ratin Pain Location: Right knee Pain Goal: Remain pain free Pain Plan: Avoid NSAIDs Tomorrow's Labs & Rationales: bep DVT/Prophylaxis: mechanical, pharmacological AUSTEN REID MD 05/22/16 1108: Attending MD Review Statement Attending Statement Attending MD Statement: examined this patient, discuss w/resident/PA/FRONT MAN, agreed w/resident/PA/FRONT MAN, reviewed EMR data (avail), discussed with nursing, discussed with case mgmt Attending Assessment/Plan: Patient feels well. His right knee is much better. He is eager to go home. He is an 85-year-old with chronic mild systolic heart failure and chronic gout who came in with presumptive acute gouty arthritis of his right knee. We right now have him on a prednisone taper per rheumatology (20 twice a day) with allopurinol and colchicine on board. He had dropped his blood pressure and in that setting got IV Lasix and had transient MADONNA which has since resolved. He is going to resume his usual Lasix of 40 mg a day with his arb and closely follow-up with Dr. Vidales and Dr Duarte
[2016-05-22 08:19] VITALS: BP 124/54
--- NOTE | 2016-05-22 08:29 | PN- Student ---
RICARDO MAE 05/22/16 0817: Subjective Subjective: Patient is a 85 year old male here for acute gouty arthiritis flare. Today patient was observed at bedside. Patient reports no complaints this morning. He appeared comfortable and oriented x3. Patient reports that he does not have any pain and is able to flex his right knee past 100 degrees, an improvement since yesterday. He has been able to ambulate by himself with his cane for support. Patient denies flank pain, joint pain, or fever. Patient also had a cough yesterday but reports that he has not coughed since yesterday evening. Objective Objective: Patient is single pacing from 70s-90s with multiple PACs and one episode of bradycardia overnight. Patient is alert and oriented x3. Patient has increased range on motion on the right leg today. He is able to flex further than 100 degrees and fully extend without any pain. There is very slight erythema over the right knee, much better than yesterday. The joint is mildly warmer than the left knee. Physcial Exam Consitutional: Patient is alert and oriented x3 HEART: S1, S2 irregularly irregular LUNGS: Decreased breath sounds on the right side Extremeties: Swelling in legs decreased +1 bilaterally Vital Signs Date Time Temp Pulse Resp B/P Pulse O2 O2 Flow FiO2 Ox Delivery Rate 05/22 0819 97.6 69 20 124/54 95 Room Air 05/21 2330 97.8 92 18 114/58 94 Room Air 05/21 2059 121 114/58 05/21 1641 97.9 104 18 109/59 94 Room Air 05/21 1600 92 Room Air 05/21 1218 109 110/58 05/21 0854 120 120/60 05/21 0851 98.2 139 20 124/61 94 Room Air 05/21 0848 98.2 139 20 124/61 94 Room Air Intake & Output 05/22 1600 05/22 0800 05/22 0000 Intake Total 120 640 Output Total 200 175 Balance -80 465 Intake, Oral 120 640 Output, Urine 200 175 Patient 186 lb Weight Laboratory Tests 05/22 0720 Chemistry Sodium Pending Potassium Pending Chloride Pending Carbon Dioxide Pending Anion Gap Pending BUN Pending Creatinine Pending BUN/Creatinine Ratio Pending Assessment/Plan Assessment: Patient is a 85 year old male with PMH of TIA, COPD, CHF, CAD post stent gout, lung ca s/p right lower and upper lobe resection, delia cell cancer post resection, prostate cancer post radiation theraphy presenting for acute gouty arthritis of the right knee. Plan: Gout 1. Patient started on prednisone 40 mg twice and then 10 day taper 2. Patient
[2016-05-22] MEDS ORDERED: PREDNISONE5 M1 PO ×2 (08:56→09:00)
[2016-05-22] MEDS ORDERED: LEVOTHYROXINE25 MCG PO (09:03)
[2016-05-22] MEDS ORDERED: ALLOPURINOL100 M1 PO (09:03)
[2016-05-22] MEDS ORDERED: COZAAR50 M1 PO (09:10)
[2016-05-22 09:57] VITALS: BP 120/54
--- NOTE | 2016-05-22 10:45 | PN- Pulmonary ---
Subjective HPI/Critical Care Issues: Patient seen and examined. No chest pain, at respiratory baseline. No nausea, vomiting, diarrhea or constipation. Afebrile and hemodynamically stable. Objective Current Medications: Current Medications Sig/Jaswinder Start time Last Medication Dose Route Stop Time Status Admin Acetaminophen 650 MG Q6 PRN 05/20 1530 AC PO Allopurinol 100 MG DAILY 05/21 1000 AC 05/22 PO 0957 Apixaban 2.5 MG Q12H 05/20 1730 AC 05/22 PO 0647 Atorvastatin Calcium 20 MG 1700 05/20 1700 AC 05/21 PO 1743 Budesonide/ 2 PUF BID 05/20 2200 AC 05/22 Formoterol Fumarate INH 0959 Carvedilol 12.5 MG BID 05/20 2200 AC 05/22 PO 0957 Colchicine 600 MCG DAILY 05/21 1000 AC 05/22 PO 0958 Docusate Sodium 100 MG DAILY 05/21 1000 AC 05/22 PO 0959 Levothyroxine Sodium 0.025 MG DAILY AC 05/21 0700 AC 05/22 PO 0648 Morphine Sulfate 1 MG Q4P PRN 05/20 1500 AC IV Omeprazole 40 MG 1/2H B/BREAKF/DINNER 05/20 1630 AC 05/22 PO 0647 Oxycodone/ 1 TAB Q6P PRN 05/20 1500 AC Acetaminophen PO Patient Medication 1 ED .STK-MED ONE 05/21 1353 DC Teaching ED 05/21 1354 Prednisone 20 MG BID 05/22 1000 AC 05/22 PO 05/29 0959 0957 Prednisone 20 MG BID 05/21 1000 DC 05/21 PO 2059 Tiotropium Purcell 1 PUF DAILY 05/21 1601 AC 05/22 INH 0958 Vital Signs & I&O Last 24 Hrs of Vitals and I&O: Vital Signs Date Time Temp Pulse Resp B/P Pulse O2 O2 Flow FiO2 Ox Delivery Rate 05/22 1034 Room Air 05/22 0957 97 120/54 05/22 08 97.6 69 20 124/54 95 Room Air 05/21 2330 97.8 92 18 114/58 94 Room Air 05/21 2059 121 114/58 05/21 1641 97.9 104 18 109/59 94 Room Air 05/21 1600 92 Room Air 05/21 1218 109 110/58 Intake & Output 05/22 1600 01/20 0800 05/22 0000 Intake Total 120 640 Output Total 200 175 Balance -80 465 Intake, Oral 120 640 Output, Urine 200 175 Patient 186 lb Weight Exam Other Physical Findings: General - Alert, awake and oriented HEENT - normocephalic, atraumatic Cardiovascular - S1, S2 Lungs - bilateral bibasilar rhonchi Abdomen - soft, bowel sounds positive, no tenderness Extremities - edematous Results Last 24 Hrs of Lab Results: Laboratory Tests 05/22/16 0720: Anion Gap 10, Estimated GFR 29 L, BUN/Creatinine Ratio 37.3 H Impression/Plan Impression/Plan Impression/Plan: Impression 85-year-old man with a history of COPD, atrial fibrillation, pulmonary nodules, obstructive sleep apnea and congestive heart failure. Presents with knee pain and leg edema. His COPD appears to be at baseline. The cough maybe related to fluid congestion/ post nasal drip, etc. It is chronic and patient is happy at his baseline at this point. Plan -resume spiriva -trc/nebs -ok for dc from pulmonary perspective -will see in office
--- NOTE | 2016-05-25 09:54 | Discharge Summary ---
Visit Information Visit Dates Admission Date: 05/20/16 Discharge Date: 05/22/16 Hospital Course Course Attending Physician: JEANETTE CARRERA,AUSTEN Dotson Primary Care Physician: ERINN CARRERA,DOUGLAS Bustamante Other Care Providers: Dr. 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 Vital signs at the time of admission -T 98.2, pulse 71, RR 18, BP 91/58 mmHg and SPO2 99% on RA. On examination, there was swelling and tenderness over the right knee.Knee X ray was showing fairly extensive degenerative changes most notably medial joint compartment. Initial labs were WBC count 16.3, H/H 11.1/33.3,P -154,Na-136,K-4.3, BUN/ Creatinine -57/2.3, GFR 27,UA-6.8,Bili-1.5, Trop- 0.18. It was thought that the patient is having gouty arthritis, so IV Solu-Medrol was given in the emergency department. As his troponin was positive so we transferred the patient to telemetry for further cardiac monitoring. Acute gouty arthritis of right knee - We took the consult from Dr. Plasencia. As the patient's inflammation subsided after a dose of IV Solu-Medrol and he was able to flex his knee by 100 degree. He felt the patient is having acute gouty arthritis, and advised to keep him on low doses of colchicine because of high creatinine. He also started him on tapering dose of prednisone. He advised patient to follow-up as an outpatient. Demand ischemia - In the ER the patient had an episode of low BP and on follow-up labs were showing elevated troponin. We placed a cardiology consult. According to Dr Vidales it is demand ischemia, which is aggravated by renal dysfuntion. He advised for telemetry monitoring, gave IV Lasix and nuclear stress test as an outpatient. Chronic cough - As patient was having chronic cough, we took the pulmonology consultation and advised us to continue Spiriva/TRC/nebulization and follow-up as an outpatient. Patient improved with steroids in 48 hours without any complications. We discharged the patient with advise, to follow-up with Dr. Plasencia within a week of discharge to decide for further steroid course. He also advised to follow-up with Dr. Vidales for nuclear stress test and Dr. Franco for further management of cough. Allergies: Coded Allergies: caffeine (HEADACHES 05/05/16) Pertinent Lab Results: Chest x-ray(05/20/2016) -Low lung volumes, no evidence of significant change.Small right pleural effusion is once again suggested. Knee X ray -Fairly extensive degenerative changes most notably medial joint compartment. 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 Plasencia within a week of discharge. Please follow-up with Dr. Franco within a week of discharge. Please follow-up with Dr. Vidales within a week of discharge,for further management and nuclear stress test Medications at Discharge Discharge Medications: Stop taking the following medications: Prednisone (Prednisone) 5 MG TABLET ORAL TWICE DAILY Qty = 40 Continue taking these medications: Simvastatin (Zocor) 20 MG TAB 1 Tablet ORAL Every night Apixaban (Eliquis) 2.5 MG TAB 1 Tablet ORAL Q12H Comments: PER PT Furosemide (Furosemide) 40 MG TAB 1 Tablet ORAL DAILY Comments: PER PT Esomeprazole (Nexium) 40 MG CAPSULE. 1 Capsule ORAL TWICE DAILY Qty = 30 Comments: DOCUMENTED "40MG BID" PER CMR DURING PRE-SX INTERVIEW PER PT MED LIST NOT GIVEN Cyanocobalamin/FA/Pyridoxine (Folbic Tablet) 1 EACH TABLET 1 Tablet ORAL DAILY Qty = 30 Comments: PER PT MED LIST NOT GIVEN Budesonide/Formoterol Fumarate (Symbicort 160-4.5 Mcg Inhaler) 10.2 GM HFA.AER.AD 2 Puff Inhale through mouth 2 x Daily as needed as needed for BREATHING Qty = 10 Comments: Last Taken:05/09/15 Time:9AM Cholecalciferol (Vitamin D3) (Vitamin D3) 1,000 UNIT CAPSULE 1 Capsule ORAL TWICE DAILY Comments: PER PT MED LIST Polyethylene Glycol 3350 (Clearlax) 17 GRAM/DOSE POWDER 0.5 Capsule ORAL DAILY Comments: NOT TAKEN Docusate Sodium (Colace) 100 MG CAPSULE 1 Capsule ORAL DAILY Comments: DOCUMENTED PER CMR DURING PRE-SX INTERVIEW Carvedilol (Coreg) 12.5 MG TABLET 1 Tablet ORAL TWICE DAILY Days = 30 Levothyroxine Sodium (Levothyroxine Sodium) 25 MCG TABLET 1 Tablet ORAL DAILY BEFORE BREAKFAST Qty = 60 This prescription has been renewed Allopurinol (Allopurinol) 100 MG TABLET 1 Tablet ORAL DAILY Qty = 60 This prescription has been renewed Losartan Potassium (Cozaar) 50 MG TABLET 1 Tablet ORAL DAILY Days = 30 Comments: This prescription has been renewed Start taking the following new medications: Prednisone (Prednisone) 5 MG TABLET 1 Tablet ORAL See Instructions Days = 10 No Refills Instructions: 5mg 4tab one time 05/22/2016 5mg 3tab 2times a day 05/23/2016 to 05/24/2016 5mg 2tab 2times a day 05/25/2016 to 05/26/2016 5mg 1tab 2times a day 05/27/2016, continue till you meet with Dr. Plasencia Then Stop Copies To: JEANETTE CARRERA,AUSTEN PLASENCIA MD,DOUGLAS Rehman MD Review Statement Documenting Attending: JEANETTE CARRERA,AUSTEN Dotson
== END 2016-05-22 11:30 | DRG 554 ==
LOC: ENRESERVDT → ENRESERVTM → ERH 08:40 → ERHI 11:50 → ENPENDDIS 11:50 → 1NO 11:50
PROVIDERS: Emergency Medicine; Internal Medicine; ADMIT Internal Medicine
DX: M10.9 Gout, unspecified (principal); I24.8 Other forms of acute ischemic heart disease; I50.42 Chronic combined systolic (congestive) and diastolic (congestive) heart failure; J44.9 Chronic obstructive pulmonary disease, unspecified; R60.9 Edema, unspecified; E78.5 Hyperlipidemia, unspecified; I10 Essential (primary) hypertension; I48.91 Unspecified atrial fibrillation; Z79.01 Long term (current) use of anticoagulants; Z95.0 Presence of cardiac pacemaker; Z85.118 Personal history of other malignant neoplasm of bronchus and lung; Z85.46 Personal history of malignant neoplasm of prostate; G47.33 Obstructive sleep apnea (adult) (pediatric); N18.9 Chronic kidney disease, unspecified
CPT/HCPCS: 1NSP; 36415; 73562-RT; 82436; 93005; 93010; 96374; 96375; J1885; J1940; J2930; J3490; J7040

== ENCOUNTER 2016-06-15 03:45 | Inpatient (IN) | payer OTHER, BC, MEDICARE ==
[~2016-06-15] VITALS: Ht 167.6 cm; Wt 88.7 kg
--- NOTE | 2016-06-15 13:56 | Admission Core Measures ---
Admission Meds I reviewed the following Meds: Current Medications Sig/Jaswinder Start time Last Medication Dose Stop Time Status Admin Cefazolin Sodium 1,000 MG ONCE 06/15 0000 NR (Kefzol-Ancef Inj) 06/15 5879 Acute Coronary Syndrome Inclusion Criteria ACS Diagnosis No Inpatient Core Measures LDL Reminder: If No, please order W/I first 24hr of stay Congestive Heart Failure Inclusion Criteria CHF Diagnosis No Cerebrovascular accident Inclusion Criteria CVA/TIA Diagnosis No Inpatient Core Measures Bedside Swallow Eval Reminder: If BSE failed, place ST order Antithrombotic Reminder: Order Antithrombotic Medication by end of day 2 Antithrombotic Reminder: Document Reason Antithrombotic Not ordered by end of day 2 AFIB/Flutter Reminder: If Present, add to problem list AFIB/Flutter Reminder: Order Anticoag Medication for pts with AFIB/Flutter Atherosclerosis Reminder: If Present, add to problem list LDL Reminder: If No, please order W/I first 24hr of stay PT Order Reminder: If No, please order Venous thromboembolism Inpatient Core Measures VTE Risk Factors: Age > 40, Cancer/chemo/oth therapy, Surgery VTE Prophylaxis Ordered Inpt Mech & Pharm No Mech VTE prophylaxis d/t No contraindications No VTE Pharm Prophylaxis d/t No contraindications Inclusion Criteria - Per Current guidelines, there needs to be overlap - treatment for the first 5 days of Warfarin therapy. - Parenteral Anticoagulation (IV or SC) needs to be - given along with Warfarin therapy. VTE Diagnosis No VTE Type NONE VTE Confirmed by (Test) NONE Problem List As ranked by this Provider includes Assessment & Plan 1. History of superficial parotidectomy HOME MEDS Home Med List Allopurinol 100 MG TABLET 1 TAB PO DAILY GOUT Apixaban (Eliquis) 2.5 MG TAB 1 TAB PO Q12H BLOOD THINNER (Reported) Budesonide/Formoterol Fumarate (Symbicort 160-4.5 Mcg Inhaler) 10.2 GM HFA.AER.AD 2 PUF INH BIDP PRN BREATHING (Reported) Carvedilol (Coreg) 12.5 MG TABLET 1 TAB PO BID HTN Cholecalciferol (Vitamin D3) (Vitamin D3) 1,000 UNIT CAPSULE 1 CAP PO BID SUPPLEMENT (Reported) Cyanocobalamin/FA/Pyridoxine (Folbic Tablet) 1 EACH TABLET 1 TAB PO DAILY SUPPLEMENT (Reported) Docusate Sodium (Colace) 100 MG CAPSULE 1 CAP PO DAILY STOOL SOFTENER ( Reported) Esomeprazole (Nexium) 40 MG CAPSULE.DR 1 CAP PO BID GI (Reported) Furosemide 40 MG TAB 1 TAB PO DAILY DIURETIC (Reported) Levothyroxine Sodium 25 MCG TABLET 1 TAB PO DAILY AC THYROID Losartan Potassium (Cozaar) 50 MG TABLET 1 TAB PO DAILY BP Polyethylene Glycol 3350 (Clearlax) 17 GRAM/DOSE POWDER 0.5 CAP PO DAILY GI ( Reported) Prednisone 5 MG TABLET 1 TAB PO SI acute gout Simvastatin (Zocor) 20 MG TAB 1 TAB PO QPM CHOLESTEROL (Reported)
[2016-06-15 16:00] VITALS: BP 112/68
--- NOTE | 2016-06-15 18:44 | Cons- Cardiology ---
General Information and HPI Consulting Request Date of Consult: 06/15/16 Requested By: WALESKA CARRERA,LELA Hendricks Reason for Consult: Atrial fibrillation History of Present Illness: The patient is an 85-year-old male with history of atrial fibrillation, coronary artery disease, status post CABG in 2002, defibrillator/pacemaker who is followed in the office by Dr. Vidales. He is status post surgery for Eugene cell carcinoma. He is doing well postoperatively. He has no chest pain. No shortness of breath. No palpitations. No diaphoresis. He is anticoagulated as an outpatient with Eliquis, however this was held in preparation for the surgery. In addition to CABG, he is status post placement of 7 coronary stents greater than 10 years ago. He has a history of ischemic cardiomyopathy, and his most recent ejection fraction was 45-50%. Allergies/Medications Allergies: Coded Allergies: caffeine (HEADACHES 05/05/16) Home Med List: Allopurinol 100 MG TABLET 1 TAB PO DAILY GOUT Apixaban (Eliquis) 2.5 MG TAB 1 TAB PO Q12H BLOOD THINNER (Reported) Budesonide/Formoterol Fumarate (Symbicort 160-4.5 Mcg Inhaler) 10.2 GM HFA.AER.AD 2 PUF INH BIDP PRN BREATHING (Reported) Carvedilol (Coreg) 12.5 MG TABLET 1 TAB PO BID HTN Cholecalciferol (Vitamin D3) (Vitamin D3) 1,000 UNIT CAPSULE 1 CAP PO BID SUPPLEMENT (Reported) Cyanocobalamin/FA/Pyridoxine (Folbic Tablet) 1 EACH TABLET 1 TAB PO DAILY SUPPLEMENT (Reported) Docusate Sodium (Colace) 100 MG CAPSULE 1 CAP PO DAILY STOOL SOFTENER ( Reported) Esomeprazole (Nexium) 40 MG CAPSULE.DR 1 CAP PO BID GI (Reported) Furosemide 40 MG TAB 1 TAB PO DAILY DIURETIC (Reported) Levothyroxine Sodium 25 MCG TABLET 1 TAB PO DAILY AC THYROID Losartan Potassium (Cozaar) 50 MG TABLET 1 TAB PO DAILY BP Polyethylene Glycol 3350 (Clearlax) 17 GRAM/DOSE POWDER 0.5 CAP PO DAILY GI ( Reported) Prednisone 5 MG TABLET 1 TAB PO SI acute gout 5mg 4tab one time 05/22/2016 5mg 3tab 2times a day 05/23/2016 to 05/24/2016 5mg 2tab 2times a day 05/25/2016 to 05/26/2016 5mg 1tab 2times a day 05/27/2016, continue till you meet with Dr. Duarte Then Stop Simvastatin (Zocor) 20 MG TAB 1 TAB PO QPM CHOLESTEROL (Reported) Current Medications: Current Medications Sig/Jaswinder Start time Last Medication Dose Route Stop Time Status Admin Acetaminophen 1,000 MG .STK-MED ONE 06/15 710 DC IV 06/15 07 Allopurinol 100 MG DAILY 06/16 1000 AC PO Atorvastatin Calcium 10 MG 1700 06/15 1700 AC 06/15 PO 1722 Budesonide/ 2 PUF BID 06/15 2200 AC Formoterol Fumarate INH Carvedilol 12.5 MG BID 06/15 2200 AC PO Cefazolin Sodium 1,000 MG IQ8 06/15 1600 AC 06/15 IV 06/16 0001 1709 Cefazolin Sodium 1,000 MG ONCE 06/15 0000 DC IV 06/15 2359 Docusate Sodium 100 MG DAILY 06/16 1000 AC PO Fentanyl Citrate 250 MCG .STK-MED ONE 06/15 711 DC IM 06/15 712 Fentanyl Citrate 250 MCG .STK-MED ONE 06/15 710 DC IM 06/15 07 Furosemide 40 MG DAILY 06/16 1000 AC PO Heparin Sodium 5,000 UNIT Q8 06/15 2200 AC (Porcine) SC Hydrocortisone 100 MG .STK-MED ONE 06/15 0737 DC Sodium Succinate IM 06/15 737 Hydromorphone HCl 2 MG .STK-MED ONE 06/15 709 DC IM 06/15 710 Levothyroxine Sodium 0.025 MG DAILY AC 06/16 0700 AC PO Losartan Potassium 50 MG DAILY 06/16 1000 AC PO Midazolam HCl 4 MG .STK-MED ONE 06/15 710 DC IM 06/15 07 Morphine Sulfate 2 MG Q3P PRN 06/15 1600 AC 06/15 IV 1618 Omeprazole 40 MG DAILY AC 06/16 0700 AC PO Ondansetron HCl 4 MG Q6P PRN 06/15 1600 AC IV Ondansetron HCl 4 MG .STK-MED ONE 06/15 710 DC IM 06/15 07 Oxycodone/ 1 TAB Q4P PRN 06/15 1600 AC Acetaminophen PO Oxycodone/ 2 TAB Q4P PRN 06/15 1600 AC Acetaminophen PO Polyethylene Glycol 17 GM DAILY 06/16 1000 AC PO Potassium Chloride 20 MEQ .[id number] 06/15 1600 AC 06/15 Dextrose/Sodium 1,000 ML IV 1710 Chloride Remifentanil 5 MG .STK-MED ONE 06/15 710 DC IV 06/15 711 Scopolamine HBr 1 PAT .STK-MED ONE 06/15 711 DC TOP 06/15 712 Review of Systems Review of Systems: No rash. No tremor. No melena. No diaphoresis. No syncope. All other systems were reviewed, and were noted to be negative. Past History Medical History Neurological: STROKE EENT: cataracts Cardiovascular: AFIB, CHF, OK, PACEMAKER, DEFIBRILAT HTN, HIGHCHOLESTEROL STEN Respiratory: LUNG CA Gastrointestinal: GERD Hepatic: NONE Renal: ? 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 Psychosocial History Where Do You Live? Home Services at Home: None Smoking Status: Unknown If Ever Smoked Functional Ability ADLs Independent: dressing, eating, toileting, bathing. Ambulation: independent, cane, non-ambulatory IADLs Independent: shopping, housework, finances, food prep, telephone, transportation , medication admin. Exam & Diagnostic Data Vital Signs and I&O Vital Signs Date Time Temp Pulse Resp B/P Pulse O2 O2 Flow FiO2 Ox Delivery Rate 06/15 1600 96 Nasal 3.0L Cannula 06/15 1600 98.1 116 19 112/68 96 Nasal 3.0L Cannula 06/15 1600 96 Nasal 3.0L Cannula Physical Exam: Gen: The patient is in no acute distress HEENT: Normal nose, ears, and oropharynx. Pupils equal bilaterally. Conjunctiva normal. Neck: Supple with no JVD, no masses, and no thyromegaly Lungs: There are to auscultation with normal respiratory effort Heart: Irregularly irregular, S1, S2, 2/6 systolic murmur. 1+ peripheral edema, 2+ pulses in the lower extremities bilaterally Abdomen: Soft, nontender, no masses. No hepatomegaly. No splenomegaly Extremities: No clubbing or cyanosis. Normal muscle strength in the upper and lower extremities Skin: Normal skin turgor with no skin ulcers or lesions noted. Neuro: Cranial nerves intact. Sensation intact Psych: Alert and oriented 3 with appropriate affect Diagnostic Data EKG Results EKG tracing from 05/21/16 is independently reviewed, and reveals atrial flutter ablation with ventricular pacing and premature ventricular contractions Other Results CT scan of the chest 05/25/16: 1. Cardiomegaly and coronary artery atherosclerotic disease with cardiac leads/AICD in place. No acute pulmonary edema or pleural effusion. 2. Pulmonary arteries are chronically enlarged, suggestive of pulmonary arterial hypertension. 3. Old granulomatous disease. 4. Noncalcified pulmonary nodules, and groundglass opacities, remain unchanged. No acute findings in the chest compared to the most recent exam from 04/23/2016. Assessment/Plan Assessment/Plan Assessment: 1. Coronary artery disease, stable 2. Atrial fibrillation 3. ICD in place 4. Atrial fibrillation 5. 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 * Check postoperative EKG. Consult Acknowledgment - Thank you for your consult request.
--- NOTE | 2016-06-15 19:22 | PN- General Surgery ---
Subjective Subjective: Awake, alert Denies any pain or nausea Tolerating liquids, swallowing without any difficulty Objective Vital Signs and I&Os Vital Signs Date Time Temp Pulse Resp B/P Pulse O2 O2 Flow FiO2 Ox Delivery Rate 06/15 1600 96 Nasal 3.0L Cannula 06/15 1600 98.1 116 19 112/68 96 Nasal 3.0L Cannula 06/15 1600 96 Nasal 3.0L Cannula Physical Exam: General: alert and oriented times three HEENT: eomi, good sensate, no facial droop, normal speech without slurring, tongue protrudes in midline, oropharynx clear Wound: dressed, dry CARMEN - serosang - about 10cc in bulb ? recorded output since OR not found Current Medications: Current Medications Sig/Jaswinder Start time Last Medication Dose Route Stop Time Status Admin Acetaminophen 1,000 MG .STK-MED ONE 06/15 710 DC IV 06/15 07 Allopurinol 100 MG DAILY 06/16 1000 AC PO Atorvastatin Calcium 10 MG 1700 06/15 1700 AC 06/15 PO 1722 Budesonide/ 2 PUF BID 06/15 2200 AC Formoterol Fumarate INH Carvedilol 12.5 MG BID 06/15 2200 AC PO Cefazolin Sodium 1,000 MG IQ8 06/15 1600 AC 06/15 IV 06/16 0001 1709 Cefazolin Sodium 1,000 MG ONCE 06/15 0000 DC IV 06/15 2359 Docusate Sodium 100 MG DAILY 06/16 1000 AC PO Fentanyl Citrate 250 MCG .STK-MED ONE 06/15 711 DC IM 06/15 712 Fentanyl Citrate 250 MCG .STK-MED ONE 06/15 710 DC IM 06/15 07 Furosemide 40 MG DAILY 06/16 1000 AC PO Heparin Sodium 5,000 UNIT Q8 06/15 2200 AC (Porcine) SC Hydrocortisone 100 MG .STK-MED ONE 06/15 07 DC Sodium Succinate IM 06/15 737 Hydromorphone HCl 2 MG .STK-MED ONE 06/15 709 DC IM 06/15 07 Levothyroxine Sodium 0.025 MG DAILY AC 06/16 0700 AC PO Losartan Potassium 50 MG DAILY 06/16 1000 AC PO Midazolam HCl 4 MG .STK-MED ONE 06/15 710 DC IM 06/15 07 Morphine Sulfate 2 MG Q3P PRN 06/15 1600 AC 06/15 IV 1618 Omeprazole 40 MG DAILY AC 06/16 0700 AC PO Ondansetron HCl 4 MG Q6P PRN 06/15 1600 AC IV Ondansetron HCl 4 MG .STK-MED ONE 06/15 710 DC IM 06/15 07 Oxycodone/ 1 TAB Q4P PRN 06/15 1600 AC Acetaminophen PO Oxycodone/ 2 TAB Q4P PRN 06/15 1600 AC Acetaminophen PO Polyethylene Glycol 17 GM DAILY 06/16 1000 AC PO Potassium Chloride 20 MEQ .[id number] 06/15 1600 AC 06/15 Dextrose/Sodium 1,000 ML IV 1710 Chloride Remifentanil 5 MG .STK-MED ONE 06/15 710 DC IV 06/15 711 Scopolamine HBr 1 PAT .STK-MED ONE 06/15 711 DC TOP 06/15 712 Assessment/Plan Assessment/Plan 85 yo male s/p left parotidectomy and neck dissection pain mgmt clear liquids tonight hep sc for dvt ppx - also pt has a fib eliquis on hold for periop time - will restart in am if no bleeding and carmen output low ancef for 24 hrs ppx Core Measures/Miscellaneous Andre Catheter Date In: 06/15/16 Still Needed? Yes (24 hrs post op) Venous Thromboembolism VTE Risk Factors: Age > 40, Surgery VTE Contraindications: No Contraindications VTE Prophylaxis Ordered Inpt Mech & Pharm VTE Diagnosis: No VTE Type: NONE VTE Confirmed by (Test): NONE Beta Tamiko Is Beta Tamiko a Home Med? Yes If Yes, Was This Ordered Today? Yes Antibiotics Is Patient on Antibiotics? Yes If Yes: prophylaxis (24 hrs post op)
[2016-06-15 20:00] VITALS: BP 115/60
--- NOTE | 2016-06-15 20:24 | NUR ---
PT ADMITTED INTO ICU AT 1600 FROM PACU. ALERT JEANNE ORIENTED X3 COMPLAIN OF PAIN ON LEFT SIDE OF FACE. PT GIVEN MORPHINE PER MD ORDERS WITH GOOD RESULTS. PT HAS LEFT WRIST ERICK WITH GOOD WAVE FORM. AFRIBLE. PACED ON THE MONITOR. LUNGS SOUNDS CLEAR ON THE RIGHT SIDE. ABD SOFT AND NONTENDER. IVF RUNNING PER MD ORDERS. AKBAR DRAINING CLEAR YELLOW URINE. SKIN CLEAN DRY AND INTACT. PT HAS SCARAL EDEMA ON RIGHT EYE. LEFT NECK DRESSING CLEAN DRY AND INTACT. JANICE DRAINING SMALL AMOUNT OF BLOODY FLUID. WILL CONTINUE TO MONITOR.
[2016-06-16] VITALS: BP 124/70
--- NOTE | 2016-06-16 | NUR ---
PATIENT ALERT AND VERBALLY APPROPRIATE.MOVING ALL EXTREMITIES. EDEMA NOTED TO LOWER EXTREMITIES.L NECK DRESSING REINFORCEMENT INTACT.BLOODY DRAINAGE NOTED ON ORIGINAL DRESSING.JANICE COMPRESSED DRAINING BLOODY DRAINAGE. MONITOR AFIB AND PACING RHYTHM AT RATE OF 108.
[2016-06-16 04:00] VITALS: BP 118/70
[2016-06-16 05:24] LABS: ABSOLUTE BASOPHIL COUNT 0 /CUMM (0.0-0.2); ABSOLUTE EOSINOPHIL COUNT 0 /CUMM (0.0-0.7); ABSOLUTE GRANULOCYTE CT 17.5 /CUMM (1.4-6.5); ABSOLUTE LYMPH COUNT 0.6 /CUMM (1.2-3.4); ABSOLUTE MONOCYTE COUNT 0.6 /CUMM (0.10-0.60); BASOPHIL % 0 % (0.0-2.0); EOSINOPHIL % 0 % (0-5); GRANULOCYTE % 93.5 % (42.2-75.2); HEMATOCRIT 32.9 % (42-52); MEAN CORPUSCULAR HGB 31.6 PG (27.0-31.0); MEAN CORPUSCULAR HGB CONC 33.6 G/DL (33.0-37.0); MEAN PLATELET VOLUME 8.8 FL (7.4-10.4); PLATELET COUNT 172 /CUMM (130-400); RBC DISTRIBUTION WIDTH 14.9 % (11.5-14.5)
[2016-06-16 05:27] LABS: WHITE BLOOD CELL COUNT 18.8 /CUMM (4.8-10.8)
--- NOTE | 2016-06-16 05:30 | NUR ---
SEEN BY DIMITRIS BAXTER.URINE OUTPUT HAS BEEN BETWEEN 20 AND 33 DURING THE NIGHT. REPORTED TO SAME.PATIENT HAS BEEN COUGHING AND EXPECTORATING WELL. SPUTUM IS BLOOD TINGED.DIMITRIS BAXTER AWARE. 250 ML NS BOLUS GIVEN.
--- NOTE | 2016-06-16 06:30 | PN- General Surgery ---
See Addendum Subjective Subjective: Awake, alert No complaints overnight Objective Vital Signs and I&Os Vital Signs Date Time Temp Pulse Resp B/P Pulse O2 O2 Flow FiO2 Ox Delivery Rate 06/16 0000 97.1 108 20 124/70 97 Nasal 2.0L Cannula 06/16 97 Nasal 2.0L Cannula 06/15 2122 96.3 114 22 115/66 06/15 1999 96.3 113 22 115/60 96 Nasal 3.0L Cannula 06/15 1999 98 Nasal 3.0L Cannula 06/15 1914 Nasal 2.0L Cannula 06/15 1599 96 Nasal 3.0L Cannula 06/15 1599 98.1 116 19 112/68 96 Nasal 3.0L Cannula 06/15 1599 96 Nasal 3.0L Cannula Intake & Output 06/16 0806/16 0000 06/14 1600 Intake Total 75 Output Total 545 Balance -470 Intake, IV 75 Output, 20 Drainage Output, Urine 525 Patient 183 lb Weight Physical Exam: vss, afebrile carmen 10cc overnight urine output decreased overnght to 20cc/hr General: alert and oriented times three Chest: clear anteriorly bilaterally Abd: good bs, soft HEENT: op clear, eomi, no facial droop, tongue protrudes in midline Wound: dressed, dry Assessment/Plan Assessment/Plan 85 yo male s/p parotidectomy and neck dissection left bolus 250cc ns for low urine output encourage fluid intake keep poe this am for monitoring carmen per dr bearden ?restart eliquis ?advance diet - on clears now Core Measures/Miscellaneous Poe Catheter Date In: 06/15/16 Venous Thromboembolism VTE Risk Factors: Age > 40, Surgery VTE Contraindications: No Contraindications VTE Prophylaxis Ordered Inpt Mech & Pharm VTE Diagnosis: No VTE Type: NONE VTE Confirmed by (Test): NONE Beta Tamiko Is Beta Tamiko a Home Med? Yes If Yes, Was This Ordered Today? Yes Antibiotics Is Patient on Antibiotics? Yes If Yes: prophylaxis (24 hrs post op)
[2016-06-16 08:00] VITALS: BP 118/72
--- NOTE | 2016-06-16 11:59 | NUR ---
@0800-PT ALERT AND ORIENTED. CALM AND COOP. DENIES PAIN. AFEBRILE. NO ISSUES NOTED WITH SWALLOWING OR SPEECH THIS AM. CONT ON NC-TITRATED TO 1L FROM 2L. O2SAT 96%. NEBS PRN. CRACKLES TO BASES NOTED-TO RECIEVE PO LASIX WITH AM MEDS. EXP WHEEZE AUSCULTATED. AFIB HR 115. PAC/DEFIB TO LCW. DENIES CP. TO RESTART ON ELIQUIS THIS AM. BP STABLE. ERICK TO L RADIAL SITE NOTED. CL LIQ DIET TRAY PROVIDED FOR BREAKFAST AND NAILA WELL. ? ADVANCE DIET FOR LUNCH. AKBAR IN PLACE WITH 2030ML HOURLY, YELLOW. SKIN INTACT EXCEPT FOR SURG INCISION TO L NECK-REOINFORCED DSG DRY. JANICE TO L NECK WITH MIN BLOODY DRAINAGE NOTED. EDEMA +2/+3 TO BLE AND ELEVATED. CONT TO MONITOR, CALL VAUGHAN WITHIN REACH.
--- NOTE | 2016-06-16 12:02 | NUR ---
@1000-[facility]. PT ASSISTED OOB TO CHAIR, NAILA SHEPHERD. ADVANCED TO FULL HUY LYONS FOR LUNCH.
--- NOTE | 2016-06-16 13:47 | PN- Cardiology ---
Subjective Subjective: Doing well postoperatively. Feeling well. No chest pain. No shortness of breath. No diaphoresis. Eliquis has been restarted. Objective Vital Signs and I&Os Vital Signs Date Time Temp Pulse Resp B/P Pulse O2 O2 Flow FiO2 Ox Delivery Rate 06/16 1200 96 Nasal 1.0L Cannula 06/16 1010 95 Nasal 1.0L Cannula 06/16 0913 147/78 06/16 0913 147/78 06/16 0800 97 Nasal 2.0L Cannula 06/16 0800 97.3 116 17 118/72 97 Nasal 2.0L Cannula 06/16 0400 97 Nasal 2.0L Cannula 06/16 0400 96.3 111 18 118/70 97 Nasal 2.0L Cannula 06/16 0000 97.1 108 20 124/70 97 Nasal 2.0L Cannula 06/16 0000 97 Nasal 2.0L Cannula 06/15 2123 96.3 114 22 115/66 06/15 1999 96.3 113 22 115/60 96 Nasal 3.0L Cannula 06/15 1999 98 Nasal 3.0L Cannula 06/15 1915 Nasal 2.0L Cannula 06/15 1600 96 Nasal 3.0L Cannula 06/15 1600 98.1 116 19 112/68 96 Nasal 3.0L Cannula 06/15 1600 96 Nasal 3.0L Cannula Intake & Output 06/16 1600 06/16 0800 06/16 0000 06/15 1600 06/15 0800 06/15 0000 Intake Total 1075 75 Output Total 195 545 Balance 880 -470 Intake, IV 1075 75 Output, 10 20 Drainage Output, Urine 185 525 Patient 183 lb 183 lb 183 lb Weight Physical Exam: Gen: The patient is in no acute distress HEENT: Normal nose, ears, and oropharynx. Pupils equal bilaterally. Conjunctiva normal. Neck: Supple with no JVD, no masses, and no thyromegaly Lungs: There are to auscultation with normal respiratory effort Heart: Irregularly irregular, S1, S2, 2/6 systolic murmur. 1+ peripheral edema, 2+ pulses in the lower extremities bilaterally Abdomen: Soft, nontender, no masses. No hepatomegaly. No splenomegaly Extremities: No clubbing or cyanosis. Normal muscle strength in the upper and lower extremities Skin: Normal skin turgor with no skin ulcers or lesions noted. Current Medications: Current Medications Sig/Jaswinder Start time Last Medication Dose Route Stop Time Status Admin Albuterol Sulfate 3 ML Q4P PRN 06/15 1930 AC 06/16 INH 1007 Allopurinol 100 MG DAILY 06/16 1000 AC 06/16 PO 0913 Apixaban 2.5 MG BID 06/16 1000 AC 06/16 PO 1109 Atorvastatin Calcium 10 MG 1700 06/15 1700 AC 06/15 PO 1722 Budesonide/ 2 PUF BID 06/15 2200 AC 06/16 Formoterol Fumarate INH 0913 Carvedilol 12.5 MG BID 06/15 2200 AC 06/16 PO 0913 Cefazolin Sodium 1,000 MG IQ8 06/15 1600 DC 06/16 IV 06/16 0001 0002 Cefazolin Sodium 1,000 MG ONCE 06/15 0000 DC IV 06/15 2359 Docusate Sodium 100 MG DAILY 06/16 1000 AC 06/16 PO 0913 Furosemide 40 MG DAILY 06/16 1000 AC 06/16 PO 0913 Furosemide 40 MG .STK-MED ONE 06/15 1357 DC IV 06/15 1358 Heparin Sodium 5,000 UNIT Q8 06/15 2200 DC 06/16 (Porcine) SC 0654 Hydromorphone HCl 2 MG .STK-MED ONE 06/15 1420 DC IM 06/15 1421 Levothyroxine Sodium 0.025 MG DAILY AC 06/16 0700 AC 06/16 PO 0651 Losartan Potassium 50 MG DAILY 06/16 1000 AC 06/16 PO 0913 Meperidine HCl 50 MG .STK-MED ONE 06/15 1421 DC IM 06/15 1422 Morphine Sulfate 2 MG Q3P PRN 06/15 1600 AC 06/15 IV 2306 Omeprazole 40 MG DAILY AC 06/16 0700 AC 06/16 PO 0650 Ondansetron HCl 4 MG Q6P PRN 06/15 1600 AC IV Oxycodone/ 1 TAB Q4P PRN 06/15 1600 AC Acetaminophen PO Oxycodone/ 2 TAB Q4P PRN 06/15 1600 AC Acetaminophen PO Polyethylene Glycol 17 GM DAILY 06/16 1000 AC 06/16 PO 0914 Potassium Chloride 20 MEQ .[id number] 06/15 1600 AC 06/16 Dextrose/Sodium 1,000 ML IV 0306 Chloride Sodium Chloride 250 ML BOLUS ONE 06/16 0615 DC 06/16 IV 06/16 0714 0658 Results Last 48 Hrs of Labs/Mics: Laboratory Tests 06/16/16 0445: Anion Gap 9, Estimated GFR 39 L, BUN/Creatinine Ratio 22.9, Magnesium 1.8, CBC w Diff MAN DIFF ORDERED, RBC 3.50 L, MCV 94.0, MCH 31.6 H, RDW 14.9 H, MPV 8.8, Gran % 93.5 H, Lymphocytes % 3.3 L, Monocytes % 3.2, Eosinophils % 0, Basophils % 0 L, Absolute Granulocytes 17.5 H, Absolute Lymphocytes 0.6 L, Absolute Monocytes 0.6, Absolute Eosinophils 0, Absolute Basophils 0, Platelet Estimate ADEQUATE, Hypochromic-Microcytic 1+, Ovalocytes 1+, PUBS MCHC 33.6 Recent Imaging Studies: EKG shows paced rhythm at 114. Assessment/Plan Assessment/Plan Assessment: 1. Coronary artery disease, stable 2. Atrial fibrillation 3. ICD in place 4. Atrial fibrillation 5. 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 Continue telemetry? Not applicable
[2016-06-16 16:00] VITALS: BP 98/0
[2016-06-17] VITALS: BP 90/64
[2016-06-17 04:37] LABS: ABSOLUTE BASOPHIL COUNT 0 /CUMM (0.0-0.2); ABSOLUTE EOSINOPHIL COUNT 0 /CUMM (0.0-0.7); ABSOLUTE GRANULOCYTE CT 10.8 /CUMM (1.4-6.5); ABSOLUTE LYMPH COUNT 1.1 /CUMM (1.2-3.4); ABSOLUTE MONOCYTE COUNT 0.6 /CUMM (0.10-0.60); BASOPHIL % 0 % (0.0-2.0); EOSINOPHIL % 0.1 % (0-5); GRANULOCYTE % 86.7 % (42.2-75.2); MEAN CORPUSCULAR HGB 30.8 PG (27.0-31.0); MEAN CORPUSCULAR VOLUME 93.4 FL (80.0-94.0); MEAN PLATELET VOLUME 8.5 FL (7.4-10.4); PLATELET COUNT 160 /CUMM (130-400); RBC DISTRIBUTION WIDTH 15.5 % (11.5-14.5); RED BLOOD CELL CT 3.32 /CUMM (4.70-6.10); WHITE BLOOD CELL COUNT 12.5 /CUMM (4.8-10.8)
--- NOTE | 2016-06-17 05:30 | PN- General Surgery ---
See Addendum Subjective Subjective: NAEO. Patient without new c/o. pain at left neck/face surgery site is 5/10. Denies difficulty breathing or swallowing. Tolerating diet without n/v. + flatus. Denies CP/SOB. Objective Vital Signs and I&Os Vital Signs Date Time Temp Pulse Resp B/P Pulse O2 O2 Flow FiO2 Ox Delivery Rate 06/17 0400 98 Nasal 1.0L Cannula 06/17 0000 97.0 64 14 90/64 99 Nasal 1.0L Cannula 06/17 0000 98 Nasal 1.0L Cannula 06/16 2213 104 107/59 06/16 2000 98 Nasal 1.0L Cannula 06/16 1709 97 Nasal 1.0L Cannula 06/16 1600 96 Nasal 1.0L Cannula 06/16 1600 97.0 106 20 98/0 98 Nasal 1.0L Cannula 06/16 1200 96 Nasal 1.0L Cannula 06/16 1010 95 Nasal 1.0L Cannula 06/16 0913 147/78 06/16 0913 147/78 06/16 0800 97 Nasal 2.0L Cannula 06/16 0800 97.3 116 17 118/72 97 Nasal 2.0L Cannula Intake & Output 06/17 0800 06/17 0000 06/16 1600 06/16 0800 06/16 0000 06/15 1600 Intake Total 1090 1525 1075 75 Output Total 610 265 195 545 Balance 480 1260 880 -470 Intake, IV 476 791 2450 75 Intake, Oral 480 1010 Number 0 Bowel Movements Output, 10 15 10 20 Drainage Output, Urine 600 250 185 525 Patient 183 lb 183 lb 183 lb Weight Physical Exam: Gen: NAD, Comfortable, A&Ox3 HEENT: Left face and neck has mild swelling at surgery site without erythema. JANICE x1 in place with serosanguineous drainage. Chest: CTAB. Tachycardic, regular rhythm. Ext: No calve TTP/Swelling, NV intact BLE. A-line in place in left wrist. Current Medications: Current Medications Sig/Jaswinder Start time Last Medication Dose Route Stop Time Status Admin Albuterol Sulfate 3 ML Q4P PRN 06/15 1930 AC 06/16 INH 1007 Allopurinol 100 MG DAILY 06/16 1000 AC 06/16 PO 09 Apixaban 2.5 MG BID 06/16 1000 AC 06/16 PO 2214 Atorvastatin Calcium 10 MG 1700 06/15 1700 AC 06/16 PO 1700 Budesonide/ 2 PUF BID 06/15 2200 AC 06/16 Formoterol Fumarate INH 2214 Carvedilol 12.5 MG BID 06/15 2200 AC 06/16 PO 2213 Docusate Sodium 100 MG DAILY 06/16 1000 AC 06/16 PO 0913 Furosemide 40 MG DAILY 06/16 1000 AC 06/16 PO 0913 Heparin Sodium 5,000 UNIT Q8 06/15 2200 DC 06/16 (Porcine) SC 0654 Levothyroxine Sodium 0.025 MG DAILY AC 06/16 0700 AC 06/16 PO 0651 Losartan Potassium 50 MG DAILY 06/16 1000 AC 06/16 PO 0913 Morphine Sulfate 2 MG Q3P PRN 06/15 1600 AC 06/15 IV 2306 Omeprazole 40 MG DAILY AC 06/16 0700 AC 06/16 PO 0650 Ondansetron HCl 4 MG Q6P PRN 06/15 1600 AC IV Oxycodone/ 1 TAB Q4P PRN 06/15 1600 AC 06/16 Acetaminophen PO 1700 Oxycodone/ 2 TAB Q4P PRN 06/15 1600 AC Acetaminophen PO Polyethylene Glycol 17 GM DAILY 06/16 1000 AC 06/16 PO 0914 Potassium Chloride 20 MEQ .[id number] 06/15 1600 AC 06/17 Dextrose/Sodium 1,000 ML IV 0445 Chloride Sodium Chloride 250 ML BOLUS ONE 06/16 0615 DC 06/16 IV 06/16 0714 0658 Results Last 48 Hours of Labs: Laboratory Tests 06/17 06/16 0410 0445 Chemistry Sodium (137 - 145 mmol/L) 134 L 137 Potassium (3.5 - 5.1 mmol/L) 4.8 4.9 Chloride (98 - 107 mmol/L) 97 L 99 Carbon Dioxide (22 - 30 mmol/L) 27 28 Anion Gap (5 - 16) 9 9 BUN (9 - 20 mg/dL) 41 H 39 H Creatinine (0.7 - 1.2 mg/dL) 1.5 H 1.7 H Estimated GFR (>60 ml/min) 45 L 39 L BUN/Creatinine Ratio (7 - 25 %) 27.3 H 22.9 Magnesium (1.6 - 2.3 mg/dL) 1.8 Hematology CBC w Diff MAN DIFF ORDERED MAN DIFF ORDERED WBC (4.8 - 10.8 /CUMM) 12.5 H 18.8 H RBC (4.70 - 6.10 /CUMM) 3.32 L 3.50 L Hgb (14.0 - 18.0 G/DL) 10.2 L 11.1 L Hct (42 - 52 %) 31.0 L 32.9 L MCV (80.0 - 94.0 FL) 93.4 94.0 MCH (27.0 - 31.0 PG) 30.8 31.6 H RDW (11.5 - 14.5 %) 15.5 H 14.9 H Plt Count (130 - 400 /CUMM) 160 172 MPV (7.4 - 10.4 FL) 8.5 8.8 Gran % (42.2 - 75.2 %) 86.7 H 93.5 H Lymphocytes % (20.5 - 51.1 %) 8.5 L 3.3 L Monocytes % (1.7 - 9.3 %) 4.7 3.2 Eosinophils % (0 - 5 %) 0.1 0 Basophils % (0.0 - 2.0 %) 0 L 0 L Absolute Granulocytes (1.4 - 6.5 /CUMM) 10.8 H 17.5 H Segmented Neutrophils (42.2 - 75.2 %) 84 H Absolute Lymphocytes (1.2 - 3.4 /CUMM) 1.1 L 0.6 L Lymphocytes (20.5 - 51.1 %) 9 L Monocytes (1.7 - 9.3 %) 6 Absolute Monocytes (0.10 - 0.60 /CUMM) 0.6 0.6 Eosinophils (0 - 5.0 %) 1 Absolute Eosinophils (0.0 - 0.7 /CUMM) 0 0 Absolute Basophils (0.0 - 0.2 /CUMM) 0 0 Platelet Estimate (ADEQUATE) ADEQUATE ADEQUATE Polychromasia 1+ Hypochromic-Microcytic 1+ Poikilocytosis 1+ Ovalocytes 1+ 1+ PUBS MCHC (33.0 - 37.0 G/DL) 33.0 33.6 Other Body Source Fld Total RBCs Counted (%) 100 Assessment/Plan Assessment/Plan 85yo POD#2 s/p left parotidectomy and neck dissection. Patient stable. Urine output improved. - Pain control - DC Andre - DC IVF - DC A-Line - OOB with assist first time - heart healthy mechanical soft diet for breakfast - Continue home dose of eliquis - ALPS - strict I/O's - DC planning - Will d/w attending Core Measures/Miscellaneous Andre Catheter Date In: 06/15/16 Venous Thromboembolism VTE Risk Factors: Age > 40, Surgery VTE Contraindications: No Contraindications VTE Prophylaxis Ordered Inpt Mech & Pharm VTE Diagnosis: No VTE Type: NONE VTE Confirmed by (Test): NONE Beta Tamiko Is Beta Tamiko a Home Med? Yes If Yes, Was This Ordered Today? Yes Antibiotics Is Patient on Antibiotics? No
[2016-06-17] MEDS ORDERED: PERCOCET 5-3251 EACH PO (05:32)
--- NOTE | 2016-06-17 05:37 | Patient Discharge Instructions ---
Discharge Instructions General Discharge Information You were seen/treated for: Left parotid mass You had these procedures: 06/15/16 Left parotidectomy with left neck dissection Watch for these problems: Redness, swelling, fever, purulent drainage, signs of infection. Difficulty breathing, difficulty swallowing. Uncontrolled pain. Excessive bleeding. Chest pain. Shortness of breath. Do not soak the wound: Yes No bath, but you may shower: No Other wound care: Daily dry dressing changes. Diet Continue normal diet: Yes Recommended Diet: Mechanical Soft Activity Activity Self Limited: Yes Acute Coronary Syndrome Inclusion Criteria At DC or during hospital stay patient has or had the following: ACS DIAGNOSIS No Discharge Core Measures Meds if any: Prescribed or Continued at Discharge Meds if any: NOT Prescribed or Continued at Discharge Congestive Heart Failure Inclusion Criteria At DC or during hospital stay patient has or had the following: CHF DIAGNOSIS No Discharge Core Measures Meds if any: Prescribed or Continued at Discharge Meds if any: NOT Prescribed or Continued at Discharge Cerebrovascular accident Inclusion Criteria At DC or during hospital stay patient has or had the following: CVA/TIA Diagnosis No Discharge Core Measures Meds if any: Prescribed or Continued at Discharge Meds if any: NOT Prescribed or Continued at Discharge Venous thromboembolism Inclusion Criteria VTE Diagnosis No VTE Type NONE VTE Confirmed by (Test) NONE Discharge Core Measures - Per Current guidelines, there needs to be overlap - treatment for the first 5 days of Warfarin therapy. - If discharged on Warfarin prior to 5 days of - overlap therapy, the patient will need to be - assessed for post discharge needs including - *Post discharge parental anticoagulation - *Warfarin and/or parental anticoagulation education - *Follow up date to check INR post discharge At least 5 days overlap therapy as Inpatient No Meds if any: Prescribed or Continued at Discharge Note: Overlap Therapy is Warfarin and Anticoagulant Meds if any: NOT Prescribed or Continued at Discharge
[2016-06-17 08:00] VITALS: BP 120/80
--- NOTE | 2016-06-17 11:07 | NUR ---
@0800-PT ALERT AND ORIENTED, COOP. FOLLOWS COMMANDS. NO DIFFICULTY WITH SWALLOWING NOTED. AFEBRILE. 1LNC REMOVED, O2SAT 98%. LUNGS CLEAR. DIM BS TO BASES. EXERTIONAL WHEEZE NOTED WITH ACTIVITY. AFIB/PAC. HR 115-120S. LCW PACER/DEFIB NOTED. BP STABLE. [facility] SOFT DIET PROVIDED FOR BREAKFAST-NAILA WELL. FOLEU DC'D AT 0600 AND PT VOIDED 190ML OF CLEAR YELLOW URINE. SKIN INTACT. SURG DSG NOTED TO L NECK-REINFORCED DON DSG REPLACED. JANICE NOTED FROM L NECK WITH MIN AMTS OF BLODDY DRAINAGE. +1 LUE EDEMA, ELEVATED ON PILLOW. PREV ERICK WAS REMOVED AT 0600. IVF CONT TO INFUSE THROUGH L ARM IV SITE. +2 BLE EDEMA CONT, ELEVATED ON PILLOWS. ALPS IN PLACE. + PULSES. CONT TO MONITOR, CALL [facility].
--- NOTE | 2016-06-17 11:10 | NUR ---
@0845-PT MEDICATED WITH PRN PERCOCET 2 TABS FOR PAIN 5/10 TO SURG SITE. ASSISTED TO COMF POSITION. @1000-PT ASSISTED OOB TO CHAIR. PAIN IMPROVED. IVF DISCONTINUED ORD. AT BEDSIDE. CALL [facility] WITHIN REACH.
--- NOTE | 2016-06-17 11:39 | PN- Cardiology ---
Subjective Subjective: Clinically, the patient appears stable today. He has no specific complaints. His blood pressure has been stable. His heart rate is moderately elevated today at 100-120. Objective Vital Signs and I&Os Vital Signs Date Time Temp Pulse Resp B/P Pulse O2 O2 Flow FiO2 Ox Delivery Rate 06/17 0851 120 120/60 06/17 0850 120 120/68 06/17 0829 95 Room Air 06/17 0800 97.8 120 18 120/80 96 Room Air 06/17 0800 96 Nasal 1.0L Cannula 06/17 0400 98 Nasal 1.0L Cannula 06/17 0000 97.0 64 14 90/64 99 Nasal 1.0L Cannula 06/17 0000 98 Nasal 1.0L Cannula 06/16 2213 104 107/59 06/16 2000 98 Nasal 1.0L Cannula 06/16 1709 97 Nasal 1.0L Cannula 06/16 1600 96 Nasal 1.0L Cannula 06/16 1600 97.0 106 20 98/0 98 Nasal 1.0L Cannula 06/16 1200 96 Nasal 1.0L Cannula Intake & Output 06/17 1600 06/17 0800 06/17 0000 06/16 1600 06/16 0800 06/16 0000 Intake Total 815 1090 1525 1075 75 Output Total 505 610 265 195 545 Balance 351 217 2355 880 -470 Intake, IV 575 619 068 5367 75 Intake, Oral 525 896 2778 Number 0 Bowel Movements Output, 5 10 15 10 20 Drainage Output, Urine 500 600 250 185 525 Patient 183 lb 183 lb 183 lb Weight Physical Exam: General: The patient is in no acute distress, alert and oriented 3 HEENT: Normal; postop changes left face and neck Neck: Supple with no JVD, no masses, and no thyromegaly, left neck dressing in place Lungs: Clear to auscultation and percussion bilaterally Heart: Irregularly irregular, S1, S2, slightly tachycardic, 2/6 systolic murmur. Abdomen: Soft, nontender, no masses. No hepatomegaly. No splenomegaly Extremities: No clubbing or cyanosis or edema. Skin: Normal Vascular: Normal Current Medications: Current Medications Sig/Jaswinder Start time Last Medication Dose Route Stop Time Status Admin Albuterol Sulfate 3 ML Q4P PRN 06/15 1930 AC 06/16 INH 1007 Allopurinol 100 MG DAILY 06/16 1000 AC 06/17 PO 0849 Apixaban 2.5 MG BID 06/16 1000 AC 06/17 PO 0850 Atorvastatin Calcium 10 MG 1700 06/15 1700 AC 06/16 PO 1700 Budesonide/ 2 PUF BID 06/15 2200 AC 06/17 Formoterol Fumarate INH 0850 Carvedilol 12.5 MG BID 06/15 2200 AC 06/17 PO 0851 Docusate Sodium 100 MG DAILY 06/16 1000 AC 06/17 PO 0851 Furosemide 40 MG DAILY 06/16 1000 AC 06/17 PO 0850 Levothyroxine Sodium 0.025 MG DAILY AC 06/16 0700 AC 06/17 PO 0558 Losartan Potassium 50 MG DAILY 06/16 1000 AC 06/17 PO 0850 Morphine Sulfate 2 MG Q3P PRN 06/15 1600 AC 06/15 IV 2306 Omeprazole 40 MG DAILY AC 06/16 0700 AC 06/17 PO 0558 Ondansetron HCl 4 MG Q6P PRN 06/15 1600 AC IV Oxycodone/ 1 TAB Q4P PRN 06/15 1600 AC 06/16 Acetaminophen PO 1700 Oxycodone/ 2 TAB Q4P PRN 06/15 1600 AC 06/17 Acetaminophen PO 0849 Polyethylene Glycol 17 GM DAILY 06/16 1000 AC 06/16 PO 0914 Potassium Chloride 20 MEQ .[id number] 06/15 1600 DC 06/17 Dextrose/Sodium 1,000 ML IV 0445 Chloride Results Last 48 Hrs of Labs/Mics: Laboratory Tests 06/17/16 0410: Anion Gap 9, Estimated GFR 45 L, BUN/Creatinine Ratio 27.3 H, CBC w Diff MAN DIFF ORDERED, RBC 3.32 L, MCV 93.4, MCH 30.8, RDW 15.5 H, MPV 8.5, Gran % 86.7 H, Lymphocytes % 8.5 L, Monocytes % 4.7, Eosinophils % 0.1, Basophils % 0 L, Absolute Granulocytes 10.8 H, Segmented Neutrophils 84 H, Absolute Lymphocytes 1.1 L, Lymphocytes 9 L, Monocytes 6, Absolute Monocytes 0.6, Eosinophils 1, Absolute Eosinophils 0, Absolute Basophils 0, Platelet Estimate ADEQUATE, Polychromasia 1+, Poikilocytosis 1+, Ovalocytes 1+, PUBS MCHC 33.0, Fld Total RBCs Counted 100 06/16/16 0445: Anion Gap 9, Estimated GFR 39 L, BUN/Creatinine Ratio 22.9, Magnesium 1.8, CBC w Diff MAN DIFF ORDERED, RBC 3.50 L, MCV 94.0, MCH 31.6 H, RDW 14.9 H, MPV 8.8, Gran % 93.5 H, Lymphocytes % 3.3 L, Monocytes % 3.2, Eosinophils % 0, Basophils % 0 L, Absolute Granulocytes 17.5 H, Absolute Lymphocytes 0.6 L, Absolute Monocytes 0.6, Absolute Eosinophils 0, Absolute Basophils 0, Platelet Estimate ADEQUATE, Hypochromic-Microcytic 1+, Ovalocytes 1+, PUBS MCHC 33.6 Microbiology 06/15 155 UPPER RESP: Surveillance Culture - COMP 06/15 1549 GI: Surveillance Culture - COMP Assessment/Plan Assessment/Plan Assessment: 1. Coronary artery disease, stable 2. Atrial fibrillation 3. ICD in place 4. Atrial fibrillation-rate elevated today 5. 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 Increase carvedilol to 15.625 mg twice a day -Keep the patient on front desk monitor. -From a cardiac standpoint, the patient is stable to be transferred out of the ICU to [address] [place] [address]. -Follow-up labs in morning Continue telemetry? Yes
--- NOTE | 2016-06-17 14:38 | NUR ---
@1300-PT BP NOTED TO BE 70/45. MANUAL BP 74/54. REPORTED TO SURG PA, PT ASYMPTOMATIC. NS 500ML BOLUS INFUSING AT THIS TIME. #1330-BP IMPROVED TO 91/52. PT RESTING COMF IN BED
[2016-06-17 16:00] VITALS: BP 88/52
--- NOTE | 2016-06-17 16:15 | Cons- CRCU ---
General Information and HPI Consulting Request Date of Consult: 06/17/16 Requested By: Dr. Hurtado. 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 Status Post left parotidectomy and neck dissection on 06/15/2016. Patient Eliquis was restarted yesterday. Today patient has elevated heart rate between 100-120. His carvedilol was pland to be increase to 15.6 twice daily to control his heart rate but due to his blood pressure drop below 80/60 the primary team hold the ordered to increase his carvedilol for now. Also the cardiology team was contacted and they recommend to repeat ICU bundle, EKG with Trop and echocardiogram for further evaluation and told his night Eliquis to rule out any underlying bleeding. the p.t received his home medication of Carvedilol 12.5 mg, losartan 50 mg, Lasix 40 mg in the morning. Patient reports left arm swelling postop, he stated that it's new for him, also he reports home hemoptysis postop with blood pink in color. He denies any chest pain, difficulty in breathing, dizziness, lightheaded, heart racing, abdominal pain, nausea, vomiting, diarrhea , difficulty urination, headache. Allergies/Medications Allergies: Coded Allergies: No Known Allergies (06/23/16) Home Med List: Allopurinol 100 MG TABLET 1 TAB PO DAILY GOUT Apixaban (Eliquis) 2.5 MG TABLET 1 TAB PO BID BLOOD THINNER (Reported) Budesonide/Formoterol Fumarate (Symbicort 160-4.5 Mcg Inhaler) 10.2 GM HFA.AER.AD 2 PUF INH BIDP PRN BREATHING (Reported) Carvedilol (Coreg) 12.5 MG TABLET 1 TAB PO BID HTN Cholecalciferol (Vitamin D3) (Vitamin D3) 1,000 UNIT CAPSULE 1 CAP PO BID SUPPLEMENT (Reported) Cyanocobalamin/FA/Pyridoxine (Folbic Tablet) 1 EACH TABLET 1 TAB PO DAILY SUPPLEMENT (Reported) Docusate Sodium (Colace) 100 MG CAPSULE 1 CAP PO DAILY STOOL SOFTENER ( Reported) Esomeprazole (Nexium) 40 MG CAPSULE.DR 1 CAP PO BID GI (Reported) Furosemide (Lasix) 40 MG TABLET 1 TAB PO QAM DIURETIC (Reported) Levothyroxine Sodium 25 MCG TABLET 1 TAB PO DAILY AC THYROID Oxycodone HCl/Acetaminophen (Percocet 5-325 MG Tablet) 5 MG-325 MG TABLET 1-2 TAB PO Q4-6 PRN PAIN Polyethylene Glycol 3350 (Clearlax) 17 GRAM/DOSE POWDER 0.5 CAP PO DAILY GI ( Reported) Prednisone 5 MG TABLET 1 TAB PO QAM STEROID (Reported) Simvastatin (Zocor*) 20 MG TABLET 1 TAB PO QPM CHOLESTEROL (Reported) Current Medications: Current Medications Sig/Jaswinder Start time Last Medication Dose Route Stop Time Status Admin Albuterol Sulfate 3 ML Q4P PRN 06/15 1930 AC 06/16 INH 1007 Allopurinol 100 MG DAILY 06/16 1000 AC 06/17 PO 0849 Apixaban 2.5 MG BID 06/18 1000 AC PO Apixaban 2.5 MG BID 06/16 1000 DC 06/17 PO 0850 Atorvastatin Calcium 10 MG 1700 06/15 1700 AC 06/17 PO 1614 Budesonide/ 2 PUF BID 06/15 2200 AC 06/17 Formoterol Fumarate INH 0850 Carvedilol 12.5 MG BID 06/15 2200 AC 06/17 PO 0851 Docusate Sodium 100 MG DAILY 06/16 1000 AC 06/17 PO 0851 Furosemide 40 MG DAILY 06/16 1000 AC 06/17 PO 0850 Levothyroxine Sodium 0.025 MG DAILY AC 06/16 0700 AC 06/17 PO 0558 Losartan Potassium 50 MG DAILY 06/16 1000 AC 06/17 PO 0850 Morphine Sulfate 2 MG Q3P PRN 06/15 1600 AC 06/15 IV 2306 Omeprazole 40 MG DAILY AC 06/16 0700 AC 06/17 PO 0558 Ondansetron HCl 4 MG Q6P PRN 06/15 1600 AC IV Oxycodone/ 1 TAB Q4P PRN 06/15 1600 AC 06/16 Acetaminophen PO 1700 Oxycodone/ 2 TAB Q4P PRN 06/15 1600 AC 06/17 Acetaminophen PO 0849 Polyethylene Glycol 17 GM DAILY 06/16 1000 AC 06/16 PO 0914 Potassium Chloride 20 MEQ .[id number] 06/15 1600 DC 06/17 Dextrose/Sodium 1,000 ML IV 0445 Chloride Sodium Chloride 500 ML BOLUS ONE 06/17 1345 DC 06/17 IV 06/17 1444 1348 Review of Systems Review of Systems Constitutional: Reports: see HPI. Cardiovascular: Reports: see HPI. Respiratory: Reports: see HPI. GI: Reports: see HPI. Genitourinary: Reports: see HPI. Past History Medical History Neurological: STROKE EENT: cataracts Cardiovascular: AFIB, CHF, [place], PACEMAKER, DEFIBRILAT HTN, HIGHCHOLESTEROL STEN Respiratory: LUNG CA Gastrointestinal: GERD Hepatic: NONE Renal: ? 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 Psychosocial History Where Do You Live? Home Services at Home: None Smoking Status: Former Smoker Functional Ability ADLs Independent: dressing, eating, toileting, bathing. Ambulation: independent, cane, non-ambulatory IADLs Independent: shopping, housework, finances, food prep, telephone, transportation , medication admin. Exam & Diagnostic Data Last 24 Hrs of Vital Signs/I&O Vital Signs Date Time Temp Pulse Resp B/P Pulse O2 O2 Flow FiO2 Ox Delivery Rate 06/17 1600 96 Nasal 1.0L Cannula 06/17 1600 97.0 109 18 88/52 98 Nasal 1.0L Cannula 06/17 1200 95 Nasal 1.0L Cannula 06/17 0851 120 120/60 06/17 0850 120 120/68 06/17 0829 95 Room Air 06/17 0800 97.8 120 18 120/80 96 Room Air 06/17 0800 96 Nasal 1.0L Cannula 06/17 0400 98 Nasal 1.0L Cannula 06/17 0000 97.0 64 14 90/64 99 Nasal 1.0L Cannula 06/17 0000 98 Nasal 1.0L Cannula 06/16 2213 104 107/59 02/14 2000 98 Nasal 1.0L Cannula Intake & Output 06/17 1600 06/17 0800 06/17 0000 Intake Total 5400 007 7936 Output Total 570 505 610 Balance 820 310 480 Intake, IV 650 575 610 Intake, Oral 740 240 480 Number 0 Bowel Movements Output, 5 10 Drainage Output, Urine 570 500 600 Physical Exam General Appearance: well developed/nourished, no apparent distress, alert, awake , comfortable Eyes: Bilateral: PERRL, EOMI. Neck: Left dressing noted there are some bleeding under it. drain in place. Respiratory: normal breath sounds, chest non-tender, no respiratory distress Cardiovascular: irregularly irregular Peripheral Pulses: 2+ radial (R), 2+ radial (L) Gastrointestinal: normal bowel sounds, soft, non-tender Extremities: pedal edema Last 48 Hrs of Labs/Pro: Laboratory Tests 06/17/16 1625: Anion Gap 5, Estimated GFR 36 L, Glucose 136 H, Calcium 8.5, Phosphorus 3.8, Magnesium 1.9, Total Bilirubin 0.5, AST 18, ALT 25, Troponin I 0.12 *H, Albumin 2.9 L, CBC w Diff NO MAN DIFF REQ, RBC 3.48 L, MCV 93.8, MCH 31.1 H, RDW 15.7 H, MPV 8.8, Gran % 84.2 H, Lymphocytes % 9.2 L, Monocytes % 6.2, Eosinophils % 0.4, Basophils % 0 L, Absolute Granulocytes 10.5 H, Absolute Lymphocytes 1.1 L, Absolute Monocytes 0.8 H, Absolute Eosinophils 0, Absolute Basophils 0, PUBS MCHC 33.2 06/17/16 0410: Anion Gap 9, Estimated GFR 45 L, BUN/Creatinine Ratio 27.3 H, CBC w Diff MAN DIFF ORDERED, RBC 3.32 L, MCV 93.4, MCH 30.8, RDW 15.5 H, MPV 8.5, Gran % 86.7 H, Lymphocytes % 8.5 L, Monocytes % 4.7, Eosinophils % 0.1, Basophils % 0 L, Absolute Granulocytes 10.8 H, Segmented Neutrophils 84 H, Absolute Lymphocytes 1.1 L, Lymphocytes 9 L, Monocytes 6, Absolute Monocytes 0.6, Eosinophils 1, Absolute Eosinophils 0, Absolute Basophils 0, Platelet Estimate ADEQUATE, Polychromasia 1+, Poikilocytosis 1+, Ovalocytes 1+, PUBS MCHC 33.0, Fld Total RBCs Counted 100 06/16/16 0445: Anion Gap 9, Estimated GFR 39 L, BUN/Creatinine Ratio 22.9, Magnesium 1.8, CBC w Diff MAN DIFF ORDERED, RBC 3.50 L, MCV 94.0, MCH 31.6 H, RDW 14.9 H, MPV 8.8, Gran % 93.5 H, Lymphocytes % 3.3 L, Monocytes % 3.2, Eosinophils % 0, Basophils % 0 L, Absolute Granulocytes 17.5 H, Absolute Lymphocytes 0.6 L, Absolute Monocytes 0.6, Absolute Eosinophils 0, Absolute Basophils 0, Platelet Estimate ADEQUATE, Hypochromic-Microcytic 1+, Ovalocytes 1+, PUBS MCHC 33.6 Assessment/Plan Impression/Plan: Patient is an 85-year-old male with a past medical history significant for CAD s /p stent, TIA, diastolic/systolic heart failure, hypertension, hyperlipidemia, AF on Eliquis s/p pacemaker and ICD placement, lung cancer status post RT/ surgery, prostate cancer status post RT, 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 Problem list: - Coronary artery disease, stable - Hypotension. 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 -Consider ultrasound Doppler of the left arm. -After discussion with the channel executive, will hold off Eliquis for tonight and will restart it tomorrow morning and his slightly elevated troponin most likely due to his underlying chronic kidney disease with demand ischemia. -Continue monitoring H&H and urine output. Consult Acknowledgment - Thank you for your consult request. -Echocardiogram for further evaluation -keep the home dose of carvedilol for now. -Consider ultrasound Doppler of the left arm. -After discussion with the channel executive, will hold off Eliquis for tonight and will restart it tomorrow morning and his slightly elevated troponin most likely due to his underlying chronic kidney disease with demand ischemia. -Continue monitoring H&H and urine output. Consult Acknowledgment - Thank you for your consult request.
--- NOTE | 2016-06-17 16:42 | NUR ---
@1500-PT NOTED TO BECOME HYPOTENSIVE AGAIN-BP READING 74/44. BP CHECKED DOPPLER-78/DOPP. PT ASYMTOMATIC. REPORTED TO SURGICAL PA AND DR GALEANO AWARE. BP CHECKED VIA DOPPLER TO OPPOSITE ARM AND OBTAINED READING 90/DOPP. @1545-DISCUSSED ABOVE FINDINGS WITH DR NARVAEZ OVER PHONE. SURGICAL PA ORD STAT EKG, LABS INCLUDING CBC, ICU BUNDLE AND TROP, REPEAT ECHO AND CALLED A MEDICAL CONSULT. PT RESTING COMF IN BED. NO NEW COMPLAINTS. DENIES PAIN/DIZZINESS. AT BEDSIDE. UPDATED PT AND FAMILY OF POC. PM DOSE OF ELIQUIS TO BE HELD TONIGHT PER REQUEST OF DR NARVAEZ. WILL CONT TO MONITOR, CALL VAUGHAN WITHIN REACH.
[2016-06-17 16:47] LABS: ABSOLUTE BASOPHIL COUNT 0 /CUMM (0.0-0.2); ABSOLUTE EOSINOPHIL COUNT 0 /CUMM (0.0-0.7); ABSOLUTE GRANULOCYTE CT 10.5 /CUMM (1.4-6.5); ABSOLUTE LYMPH COUNT 1.1 /CUMM (1.2-3.4); ABSOLUTE MONOCYTE COUNT 0.8 /CUMM (0.10-0.60); BASOPHIL % 0 % (0.0-2.0); EOSINOPHIL % 0.4 % (0-5); HEMATOCRIT 32.7 % (42-52); MEAN CORPUSCULAR HGB 31.1 PG (27.0-31.0); MEAN CORPUSCULAR HGB CONC 33.2 G/DL (33.0-37.0); MEAN CORPUSCULAR VOLUME 93.8 FL (80.0-94.0); MEAN PLATELET VOLUME 8.8 FL (7.4-10.4); PLATELET COUNT 176 /CUMM (130-400); RBC DISTRIBUTION WIDTH 15.7 % (11.5-14.5); RED BLOOD CELL CT 3.48 /CUMM (4.70-6.10); WHITE BLOOD CELL COUNT 12.5 /CUMM (4.8-10.8)
[2016-06-17 16:48] LABS: GRANULOCYTE % 84.2 % (42.2-75.2)
[2016-06-17 20:00] VITALS: BP 110/60
--- NOTE | 2016-06-17 20:24 | NUR ---
REPORTED TO DR. TEJEDA 2+ EDEMA IN LEFT ARM, PINK IN COLOR, DENIES PAIN,
--- NOTE | 2016-06-17 22:02 | NUR ---
U/S TECH AT BEDSIDE FOR U/S LEFT UPPER EXT
[2016-06-17 22:39] LABS: ABSOLUTE BASOPHIL COUNT 0 /CUMM (0.0-0.2); ABSOLUTE EOSINOPHIL COUNT 0 /CUMM (0.0-0.7); ABSOLUTE LYMPH COUNT 1.4 /CUMM (1.2-3.4); ABSOLUTE MONOCYTE COUNT 0.7 /CUMM (0.10-0.60); BASOPHIL % 0.3 % (0.0-2.0); EOSINOPHIL % 0.3 % (0-5); GRANULOCYTE % 82.2 % (42.2-75.2); HEMATOCRIT 32.5 % (42-52); MEAN CORPUSCULAR HGB 31.3 PG (27.0-31.0); MEAN CORPUSCULAR HGB CONC 33.4 G/DL (33.0-37.0); MEAN CORPUSCULAR VOLUME 93.8 FL (80.0-94.0); MEAN PLATELET VOLUME 8.5 FL (7.4-10.4); PLATELET COUNT 171 /CUMM (130-400); RBC DISTRIBUTION WIDTH 15.6 % (11.5-14.5); RED BLOOD CELL CT 3.47 /CUMM (4.70-6.10); WHITE BLOOD CELL COUNT 12.2 /CUMM (4.8-10.8)
--- NOTE | 2016-06-17 22:59 | ULTRASOUND REPORT ---
EXAMINATION: DUPLEX DOPPLER UPPER EXTREMITY, left CLINICAL INFORMATION: Edema and swelling. COMPARISON: None. TECHNIQUE: Duplex Doppler performed of left upper extremity deep veins with grayscale, color Doppler and spectral Doppler examination. FINDINGS: Patient is a bandage over the upper arm. Difficult to visualize the subclavian vein. Examination therefore performed from the axillary vein to the forearm. No evidence of deep vein thrombosis. IMPRESSION: No evidence of deep vein thrombosis from the axillary vein through the forearm
[2016-06-18] VITALS: BP 98/58
--- NOTE | 2016-06-18 00:03 | NUR ---
PATIENT RECEIVED ALERT AND ORIENTED X3, DENIES ANY C/O DISCOMFORT AT THIS TIME, SKIN PINK, WARM AND DRY, RN MEDICARE PACED RHYTHYM WITH HEART RATE HIGH 80'S TO 90'S/MIN, O2 AT 1L/MIN VIA NC- CONTINUOUS O2 SAT 96%, BREATHE SOUNDS DIMINISHED ON RIGHT, LEFT CLEAR, ABDOMEN SOFT, +BS, GENERALIZED EDEMA NOTED, LUE +2- ELEVATED ON PILLOW-+ DOLPLAR LEFT RADIAL PULSE LEFT NECK/CHEEK DERSSING DRY AND INTACT, JANICE IN PLACE AND COMPRESSSED X1- SCANT SEROSANQUINOUS DRAINAGE NOTED, PATIENT STATES ABLE TO SWALLOW WITHOUT DIFFICULTY, VOICE RASPY BUT CLEAR, PATIENT SETTLED FOR SLEEP, CALL LIGHT WITHIN REACH
--- NOTE | 2016-06-18 01:52 | NUR ---
0100 5 BEAT RUN OF VT- SEE STRIP, PATIENT ASLEEP, DR FERGUSON NOTIIFED
[2016-06-18 04:02] LABS: ABSOLUTE BASOPHIL COUNT 0 /CUMM (0.0-0.2); ABSOLUTE EOSINOPHIL COUNT 0.1 /CUMM (0.0-0.7); ABSOLUTE GRANULOCYTE CT 8.4 /CUMM (1.4-6.5); ABSOLUTE LYMPH COUNT 1.4 /CUMM (1.2-3.4); ABSOLUTE MONOCYTE COUNT 0.6 /CUMM (0.10-0.60); BASOPHIL % 0.3 % (0.0-2.0); EOSINOPHIL % 0.5 % (0-5); GRANULOCYTE % 80.4 % (42.2-75.2); MEAN CORPUSCULAR HGB 30.8 PG (27.0-31.0); MEAN CORPUSCULAR VOLUME 93.1 FL (80.0-94.0); MEAN PLATELET VOLUME 8.4 FL (7.4-10.4); PLATELET COUNT 152 /CUMM (130-400); RBC DISTRIBUTION WIDTH 15.6 % (11.5-14.5); RED BLOOD CELL CT 3.33 /CUMM (4.70-6.10); WHITE BLOOD CELL COUNT 10.5 /CUMM (4.8-10.8)
--- NOTE | 2016-06-18 07:15 | PN- General Surgery ---
See Addendum Subjective Subjective: The patient was seen this morning postoperatively day #3. He reports that his pain is under adequate control and has no other complaints at the current time. He denies any true chest pain, difficulty breathing, or palpitations. Objective Vital Signs and I&Os Vital Signs Date Time Temp Pulse Resp B/P Pulse O2 O2 Flow FiO2 Ox Delivery Rate 06/18 0400 95 Nasal 1.0L Cannula 06/18 0000 96 Nasal 1.0L Cannula 06/18 0000 97.0 90 16 98/58 96 Nasal 1.0L Cannula 06/17 2219 116 115/60 06/17 2120 95 Nasal 1.0L Cannula 06/17 2000 97 Nasal 1.0L Cannula 06/17 1999 97.1 108 14 110/60 97 Nasal 1.0L Cannula 06/17 1600 96 Nasal 1.0L Cannula 06/17 1600 97.0 109 18 88/52 98 Nasal 1.0L Cannula 06/17 1200 95 Nasal 1.0L Cannula 06/17 0851 120 120/60 06/17 0850 120 120/68 06/17 0829 95 Room Air 06/17 0800 97.8 120 18 120/80 96 Room Air 06/17 0800 96 Nasal 1.0L Cannula Intake & Output 06/18 0800 06/18 0000 06/17 1600 06/17 0800 06/17 0000 06/16 1600 Intake Total 320 8843 803 5548 1525 Output Total 270 570 505 610 265 Balance 50 820 710 012 8852 Intake, IV 0 650 575 610 515 Intake, Oral 320 740 913 769 9670 Number 0 0 0 Bowel Movements Output, 10 5 10 15 Drainage Output, Urine 260 570 500 600 250 Patient 183 lb Weight Physical Exam: Gen.: Alert and in no obvious distress Skin: Warm and dry Neck: With surgical dressing is blood-tinged but otherwise intact. There is some mild expected edema without signs of gross hematoma. There is a JANICE in place holding suction with minimal drainage in the bulb Cardiac: S1 and S2 irregular and tachycardic Pulmonary: Bilateral breath sounds with upper respiratory congestion and fine crackles at bases Extremities: Bilateral lower extremities are warm without calf tenderness and there is 1+ pitting edema. Left upper extremity remains edematous as well and nontender. Assessment/Plan Assessment/Plan Assessment: 85-year-old male status post left superficial parotidectomy and neck dissection postoperative day #3. From a surgical standpoint the patient is progressing as expected and should've been discharged home yesterday. Due to hypotension and a regular arrhythmias the patient has been Here in the ICU. His fluid status is likely overload however he is maintaining adequate saturations on minimum oxygen demand. Plan: Continue current diet Out of bed and ambulate GI and DVT prophylaxis please continue Eliqis Continue current pain regiment Will get a portable chest x-ray Total respiratory care with IST Follow-up pulmonary and critical care recommendations Keep JANICE to self suction Consider transferring services to cardiology or medicine Core Measures/Miscellaneous Andre Catheter Date In: 06/15/16 Venous Thromboembolism VTE Risk Factors: Age > 40, Surgery VTE Contraindications: No Contraindications VTE Prophylaxis Ordered Inpt Mech & Pharm VTE Diagnosis: No VTE Type: NONE VTE Confirmed by (Test): NONE Beta Tamiko Is Beta Tamiko a Home Med? Yes If Yes, Was This Ordered Today? Yes Antibiotics Is Patient on Antibiotics? No
--- NOTE | 2016-06-18 07:43 | NUR ---
PATIENT HAS SLEPT WELL, CONTINUES TO DENY ANY C/O PAIN OR OTHER DISCOMFORT, SBP STABLE AT 90 TO 100/SYSTOLIC OVERNIGHT, PATIENT SEEN AND EXAMINED BY TASHA BAXTER, AWITING AM ROUNDS
[2016-06-18 08:00] VITALS: BP 120/60
--- NOTE | 2016-06-18 08:04 | PN- CRCU ---
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 Status Post left parotidectomy and neck dissection on 06/15/2016. The patient was admitted under surgical service but yesterday was found to be tachycardiac witha heart rate between 100-120. The intention was to increase the carvedilol from 12.5 to 15.6 twice daily to control his heart rate but as his blood pressure dropped below 80 /60 the same dose was continued and medicine was called for consult. Cardiology is on board as well. The patient had a reapeat set of labs, that showed positive trop of 0.12. Patient also reported left arm swelling postop. A venous doppler of the left upper extremity is negative for DVT. he reported sleeping reasonably okay. He denies any chest pain, difficulty in breathing, dizziness, lightheaded, heart racing, abdominal pain, nausea, vomiting, diarrhea, difficulty urination, headache. Objective Current Medications: Current Medications Sig/Jaswinder Start time Last Medication Dose Route Stop Time Status Admin Albuterol Sulfate 3 ML Q4P PRN 06/15 1930 AC 06/16 INH 1007 Allopurinol 100 MG DAILY 06/16 1000 AC 06/17 PO 0849 Apixaban 2.5 MG BID 06/18 1000 AC PO Apixaban 2.5 MG BID 06/16 1000 DC 06/17 PO 0850 Atorvastatin Calcium 10 MG 1700 06/15 1700 AC 06/17 PO 1614 Budesonide/ 2 PUF BID 06/15 2200 AC 06/17 Formoterol Fumarate INH 2219 Carvedilol 12.5 MG BID 06/15 2200 AC 06/17 PO 2219 Docusate Sodium 100 MG DAILY 06/16 1000 AC 06/17 PO 0851 Furosemide 40 MG DAILY 06/16 1000 AC 06/17 PO 0850 Levothyroxine Sodium 0.025 MG DAILY AC 06/16 0700 AC 06/18 PO 0728 Losartan Potassium 50 MG DAILY 06/16 1000 AC 06/17 PO 0850 Morphine Sulfate 2 MG Q3P PRN 06/15 1600 AC 06/15 IV 2306 Omeprazole 40 MG DAILY AC 06/16 0700 AC 06/18 PO 0728 Ondansetron HCl 4 MG Q6P PRN 06/15 1600 AC IV Oxycodone/ 1 TAB Q4P PRN 06/15 1600 AC 06/16 Acetaminophen PO 1700 Oxycodone/ 2 TAB Q4P PRN 06/15 1600 AC 06/17 Acetaminophen PO 0849 Polyethylene Glycol 17 GM DAILY 06/16 1000 AC 06/16 PO 0914 Potassium Chloride 20 MEQ .[id number] 06/15 1600 DC 06/17 Dextrose/Sodium 1,000 ML IV 0445 Chloride Sodium Chloride 500 ML BOLUS ONE 06/17 1345 DC 06/17 IV 06/17 1444 1348 Vital Signs & I&O Last 24 Hrs of Vitals and I&O: Vital Signs Date Time Temp Pulse Resp B/P Pulse O2 O2 Flow FiO2 Ox Delivery Rate 06/18 0400 95 Nasal 1.0L Cannula 06/18 0000 96 Nasal 1.0L Cannula 06/18 0000 97.0 90 16 98/58 96 Nasal 1.0L Cannula 06/17 2219 116 115/60 06/17 2120 95 Nasal 1.0L Cannula 06/17 2000 97 Nasal 1.0L Cannula 06/17 1999 97.1 108 14 110/60 97 Nasal 1.0L Cannula 06/17 1600 96 Nasal 1.0L Cannula 06/17 1600 97.0 109 18 88/52 98 Nasal 1.0L Cannula 06/17 1200 95 Nasal 1.0L Cannula 06/17 0851 120 120/60 06/17 0850 120 120/68 Intake & Output 06/18 1600 06/18 0800 06/18 0000 Intake Total 100 320 Output Total 275 270 Balance -175 50 Intake, IV 0 Intake, Oral 100 320 Number 0 0 Bowel Movements Output, 0 10 Drainage Output, Urine 275 260 Exam General Appearance: well developed/nourished, no apparent distress, alert, awake , comfortable Head: atraumatic, normal appearance Ears, Nose, Throat: normal pharynx, normal ENT inspection, drain from the left parotid gland in place, with dressing intact, not stained, no bleeding Neck: normal inspection, supple, full range of motion, drain in place on the left side Respiratory: normal breath sounds, chest non-tender, no respiratory distress Cardiovascular: regular rate/rhythm, normal peripheral pulses Abdomen: normal bowel sounds, soft, non-tender Extremities: normal inspection, normal capillary refill, normal range of motion Results Last 24 Hrs of Lab Results: Laboratory Tests 06/18/16 0345: Troponin I 0.08 06/18/16 0345: Anion Gap 5, Estimated GFR 41 L, Glucose 119 H, Calcium 8.6, Phosphorus 3.0, Magnesium 1.8, Total Bilirubin 0.6, AST 14 L, ALT 26, Albumin 2.6 L, CBC w Diff NO MAN DIFF REQ, RBC 3.33 L, MCV 93.1, MCH 30.8, RDW 15.6 H, MPV 8.4, Gran % 80.4 H, Lymphocytes % 13.1 L, Monocytes % 5.7, Eosinophils % 0.5, Basophils % 0.3, Absolute Granulocytes 8.4 H, Absolute Lymphocytes 1.4, Absolute Monocytes 0.6, Absolute Eosinophils 0.1, Absolute Basophils 0, PUBS MCHC 33.0 06/17/160: Troponin I 0.08, CBC w Diff NO MAN DIFF REQ, RBC 3.47 L, MCV 93.8, MCH 31.3 H, RDW 15.6 H, MPV 8.5, Gran % 82.2 H, Lymphocytes % 11.6 L, Monocytes % 5.6, Eosinophils % 0.3, Basophils % 0.3, Absolute Granulocytes 10.0 H, Absolute Lymphocytes 1.4, Absolute Monocytes 0.7 H, Absolute Eosinophils 0, Absolute Basophils 0, PUBS MCHC 33.4 06/17/16 1625: Anion Gap 5, Estimated GFR 36 L, Glucose 136 H, Calcium 8.5, Phosphorus 3.8, Magnesium 1.9, Total Bilirubin 0.5, AST 18, ALT 25, Troponin I 0.12 *H, Albumin 2.9 L, CBC w Diff NO MAN DIFF REQ, RBC 3.48 L, MCV 93.8, MCH 31.1 H, RDW 15.7 H, MPV 8.8, Gran % 84.2 H, Lymphocytes % 9.2 L, Monocytes % 6.2, Eosinophils % 0.4, Basophils % 0 L, Absolute Granulocytes 10.5 H, Absolute Lymphocytes 1.1 L, Absolute Monocytes 0.8 H, Absolute Eosinophils 0, Absolute Basophils 0, PUBS MCHC 33.2 Diagnostic Data CXR Findings: Left basilar opacification likely representing left-sided effusion with associated consolidation. Pneumonia is a likely possibility. US Findings: FINDINGS: Patient is a bandage over the upper arm. Difficult to visualize the subclavian vein. Examination therefore performed from the axillary vein to the forearm. No evidence of deep vein thrombosis. 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 Problem list: 1. Hypotension. 2. Atrial fibrillation-rate elevated today 3. Status post surgery for metastatic Eugene cell carcinoma, postoperative day # 3 4. Positive troponin 5. Left arm swelling 6. Coronary artery disease, stable 7. ICD in place Recommendations: 1. Hypotension: - BP 98/49 today in am - Will recommend to HOLD losartan and lasix for now - May resume carvedilol at the current dose of 12.5 mg BID - The patient may be downgraded to Tele, (Dr. Vidales on board) 2. Atrial fibrillation-rate elevated today: - HR between 110-120 - May resume Eiquis today - Continue with Carvidelol 12.5 mg BID 3. 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 Positive troponin: - Less likely acute [place] - They have trended down, no with no EKg changes and no active chest pain - 0.12-0.08-0.08 - Likely demand ischemia with possibly due to underlying chronic kideny disease 5. Left arm swelling: - Elevate arm - Warm compresses - No evidence of DVT, US Doppler negative - Monitor 6. Continue with all other chronic medications including Levothyroxine, Alopurinol, Lipitor 7. HHD 8. Eliquis for DVT PPx 9. FULL CODE Code Status: Full Code Problem List: 1. Hypotension 2. Elevated troponin 3. Coronary artery disease
--- NOTE | 2016-06-18 10:50 | RADIOLOGY REPORT ---
EXAMINATION: XR PORTABLE CHEST CLINICAL INFORMATION: Volume overload. COMPARISON: CT chest 05/25/2016. X-ray chest portable 05/20/2016 TECHNIQUE: Portable AP view of the chest was obtained. FINDINGS: Stable multilead pacemaker device noted again. Pacemaker generator is partly obscuring the outer aspect left mid to lower lung. Increasing opacity noted in the left lower lung consistent with left-sided pleural effusion with associated consolidation. Hazy opacification of the right lateral base represents a stable finding likely representing atelectatic change and possible trace fluid. Visualized bony thorax is intact. IMPRESSION: Left basilar opacification likely representing left-sided effusion with associated consolidation. Pneumonia is a likely possibility. Clinical correlation recommended.
--- NOTE | 2016-06-18 12:30 | Operative Report ---
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 The area of the left aspect of his face especially around the ear and neck down to the chest was clipped prepped and draped in usual sterile fashion we had set up the Nims monitor electrodes. Patient had a small incision higher up in the navicular region from the attempted sentinel node biopsy and he also had an old left carotid endarterectomy scar which was rather transverse not oblique longitudinal along the sternocleidomastoid muscle, so using these 2 incisions we planned a single incision that went over the left parotid gland and also continued down past the angle of the mandible and curved forward joining the carotid endarterectomy scar which was roughly 2 fingerbreadths below and parallel to the mandible. The upper portion of the planned incision was infiltrated with local anesthetic and then incised. We had reviewed the preoperative imaging a CT scan mass was palpable in the upper portion of the parotid gland so the incision was not deepened initially that first just through dermis and then we developed subcutaneous flaps over the mass which seemed very superficial at this point a little lower down and we deepened the incision at the level of the entry of the facial nerve about a centimeter inferior to the tragus the tumor was above this area. Both medial and lateral subcutaneous flaps were developed in the greater auricular nerve was spared inferolaterally. The tumor was on top of the superficial lobe of the parotid gland, a significant portion of subcutaneous subdermal that there was an area inferiorly that had protruded into the gland and it was multilobulated and very friable so we approached it inferiorly first to get into the plane of the facial nerve lifting upwards the inferior portion of the superficial lobe was not removed the dissection was carried out mostly by the bipolar cautery but also at times with the Harmonic Scalpel. Eventually the entire tumor was lifted up with some underlying parotid gland tissue the deepest extent that it was right over where the facial nerve bifurcated. My impression is that this was a metastases to some superficial parotid lymph nodes which then grew and deepened focally. Also noted at the deepest extent this tumor seemed necrotic with some thick turbid fluid in it. A moistened gauze was used to cover the area while we then opened the rest of the incision and developed subcutaneous flaps both superiorly and inferiorly for the cervical neck dissection. We also had reviewed preoperative imaging including the lymphoscintigraphy done for the sentinel node which shows that the mapping was limited to appear radicular space and longitudinally down essentially along level III. Our plan was to dissect levels I - III. The skin incision was deepened through the platysma raised the superior flap towards the mandible but this was limited initially by scarring from the carotid endarterectomy so we developed the inferior lateral skin flap just past the posterior lateral edge of the sternocleidomastoid muscle once this upper portion of sternocleidomastoid muscle was mobilized we retracted it laterally and dissected out the packet of notes off of the jugular vein inferior to the parotid but also extending inferiorly to the omohyoid. During the distal spinal accessory nerve was identified and preserved we also included the notes which were palpable higher up near the digastric muscle, inferiorly and deep phrenic nerve was identified and avoided. In general the dissection proceeded from lateral to medial whenever possible. After this superiorly we approached the superior flap again to try to develop a plane beneath the level of the marginal mandibular branch but the amount of scarring obliterated the plane here and in the interest of avoiding morbidity and also in light of preoperative imaging I decided to not approach level I. So then we irrigated introduced into size 10 round drain in both areas at the parotid and also in front of the sternocleidomastoid muscle brought out through a separate stab incision and secured to the skin we reapproximated the incision in layers the platysma inferiorly superiorly a few subcutaneous terminals interrupted 3-0 Vicryl and 4- 0 Vicryl and then 0 running 5-0 nylon followed by bacitracin Telfa and Tegaderms. EBL minimal left and sponge construct wound expectancy was clean of any fluids crystalloid complications none patient the procedure well was awakened and extubated and returned to recovery room in satisfactory condition
[2016-06-18 15:30] VITALS: BP 134/72
--- NOTE | 2016-06-18 17:12 | ECHOCARDIOGRAM REPORT ---
HESHAM CARLOS Age: 85 : 1930 Gender: M Exam Date: 06/17/2016 17:00 Exam Location: [facility] Ht (in): 66 Wt (lb): 182 BSA: 1.98 BP: 120 / 60 Ordering Physician: MARIANA ARCEO PA Referring Physician: bOey Vidales MD Technologist: Nikia Morrow FRANSISCO Room Number: 107 Indications: AFIB/FLUTTER Rhythm: Sinus Technical Quality: Fair, Technically difficult study FINDINGS Left Ventricle Normal size left ventricle. Mildly reduced global left ventricular systolic function. Left ventricular wall thickness moderately increased. Mildly abnormal left ventricular ejection fraction estimated at 40-45%. Right Ventricle Right ventricle not well visualized, grossly normal. Right Atrium Right atrium not well visualized, grossly normal. Left Atrium Moderate to severe left atrial dilatation. Mitral Valve Mitral valve thickened. Mild mitral regurgitation. Aortic Valve Trileaflet aortic valve. Diffuse thickening (sclerosis) of the aortic valve cusps without reduced excursion. No aortic stenosis. Mild aortic regurgitation. Tricuspid Valve Tricuspid valve not well visualized. Mild tricuspid regurgitation. Right ventricular systolic pressure estimated at 45 mmHg. Pulmonic Valve Pulmonic valve not well visualized. Pericardium No pericardial effusion. Great Vessels Aortic root and proximal ascending aorta not well visualized, grossly normal. CONCLUSIONS 1. This was a technically difficult examination. 2. Aortic sclerosis is present with mild aortic insufficiency. 3. Mitral leaflet thickening is present with mild mitral insufficiency and moderate to severe left atrial enlargement. 4. There is no significant pericardial fluid present. 5. The left ventricular chamber size is normal with moderate concentric hypertrophy. There is global hypokinesia present which appears to be worse in the inferoposterior segments. The ejection fraction is approximately 40% but I believe that it is underestimated due to the patient's rapid rate and a followup study should be performed when the patient's heart rate is better controlled to reassess LV function. 6. Mild tricuspid insufficiency is present with mild pulmonary hypertension. Obey Vidales M.D. (Electronically Signed) Final Date: 18 June 2016 17:11 MEASUREMENTS (Male / Female) Normal Values 2D ECHO LV Diastolic Diameter PLAX 4.2 cm 4.2 - 5.9 / 3.9 - 5.3 cm LV Systolic Diameter PLAX 3.7 cm 2.1 - 4.0 cm LV Fractional Shortening PLAX 11.9 % 25 - 46 % LV Ejection Fraction 2D Teich 26.0 % IVS Diastolic Thickness 1.5 cm LVPW Diastolic Thickness 1.5 cm LV Relative Wall Thickness 0.7 RV Internal Dim ED PLAX 2.4 cm 1.9 - 3.8 cm LVOT Diameter 2.0 cm Aortic Root Diameter 3.2 cm LA Systolic Diameter LX 5.7 cm 3.0 - 4.0 / 2.7 - 3.8 cm LV Ejection Fraction MOD BP 33.8 % >= 55 % LV Diastolic Length 4C 9.1 cm 6.9 - 10.3 cm LV Diastolic Area 4C 26.1 cm LV Diastolic Volume MOD 4C 62.0 cm LV Ejection Fraction MOD 4C 25.8 % LV Stroke Volume MOD 4C 16.0 cm LV Systolic Length 4C 7.6 cm LV Systolic Area 4C 19.7 cm LV Systolic Volume MOD 4C 46.0 cm LV Ejection Fraction MOD 2C 33.7 % LV Diastolic Volume 4C AL 63.8 cm 85 - 139 / 69 - 109 cm LV Systolic Volume 4C AL 43.6 cm LV Ejection Fraction 4C AL 31.7 % LV Stroke Volume 4C AL 20.2 cm LV Ejection Fraction 2C AL 33.4 % LA Volume 69.0 cm 18 - 58 / 22 - 52 cm Ascending Aorta Diameter 2.9 cm DOPPLER AV Peak Velocity 125.0 cm/s AV Peak Gradient 6.3 mmHg AV Mean Velocity 85.6 cm/s AV Mean Gradient 3.0 mmHg AV Velocity Time Integral 20.0 cm AI Deceleration Norton 477.0 cm/s AI Peak Velocity 387.0 cm/s AI Pressure Half Time 237.0 ms AI Peak Gradient 59.9 mmHg LVOT Peak Velocity 66.9 cm/s LVOT Peak Gradient 1.8 mmHg LVOT Mean Velocity 43.4 cm/s LVOT Mean Gradient 1.0 mmHg LVOT Velocity Time Integral 12.4 cm LVOT Stroke Volume 39.0 cm AV Area Cont Eq vti 1.9 cm AV Area Cont Eq pk 1.7 cm MV Peak Velocity 103.0 cm/s MV Peak Gradient 4.2 mmHg MV Mean Velocity 55.5 cm/s MV Mean Gradient 2.0 mmHg Mitral E Point Velocity 115.0 cm/s MV PHT Velocity 107.0 cm/s MV Deceleration Norton 365.0 cm/s MV Pressure Half Time 87.9 ms MV Area PHT 2.5 cm MV Deceleration Time 111.0 ms TR Peak Velocity 290.0 cm/s TR Peak Gradient 33.6 mmHg Right Atrial Pressure 10.0 mmHg Pulmonary Artery Systolic Pressu 43.6 mmHg Right Ventricular Systolic Press 43.6 mmHg PV Peak Velocity 81.3 cm/s PV Peak Gradient 2.6 mmHg PV Mean Velocity 55.4 cm/s PV Mean Gradient 1.0 mmHg PV Velocity Time Integral 11.7 cm LV E' Lateral Velocity 7.5 cm/s Mitral E to LV E' Lateral Ratio 15.3 LV E' Septal Velocity 6.2 cm/s Mitral E to LV E' Septal Ratio 18.4
--- NOTE | 2016-06-18 19:46 | PN- Cardiology ---
Subjective Subjective: Overnight events noted. Transient hypotension responding to IVFs. The patient feels otherwise well and denies any other symptoms. Today, heart rate and BP improved. Objective Vital Signs and I&Os Vital Signs Date Time Temp Pulse Resp B/P Pulse O2 O2 Flow FiO2 Ox Delivery Rate 06/18 1655 Nasal 1.0L Cannula 06/18 1530 98.0 65 20 134/72 96 Nasal 1.0L Cannula 06/18 1201 122 110/50 06/18 1200 97 Nasal 1.0L Cannula 06/18 0800 97 Nasal 1.0L Cannula 06/18 0800 97.2 119 20 120/60 97 Nasal 1.0L Cannula 06/18 0400 95 Nasal 1.0L Cannula 06/18 0000 96 Nasal 1.0L Cannula 06/18 0000 97.0 90 16 98/58 96 Nasal 1.0L Cannula 06/17 2219 116 115/60 06/17 2120 95 Nasal 1.0L Cannula 06/17 1999 97 Nasal 1.0L Cannula 06/17 1999 97.1 108 14 110/60 97 Nasal 1.0L Cannula Intake & Output 06/18 1600 06/18 0800 06/18 0000 06/17 1600 06/17 0800 06/17 0000 Intake Total 720 708 769 6831 815 1090 Output Total 900 275 270 570 505 610 Balance -180 -175 50 820 310 480 Intake, IV 0 0 650 575 610 Intake, Oral 720 100 320 740 240 480 Number 0 0 0 0 Bowel Movements Output, 0 0 10 5 10 Drainage Output, Urine 900 275 260 570 500 600 Physical Exam: General: The patient is in no acute distress, alert and oriented 3 HEENT: Normal; postop changes left face and neck Neck: Supple with no JVD, no masses, and no thyromegaly, left neck dressing in place Lungs: Clear to auscultation and percussion bilaterally Heart: Irregularly irregular, S1, S2, slightly tachycardic, 2/6 systolic murmur. Abdomen: Soft, nontender, no masses. No hepatomegaly. No splenomegaly Extremities: No clubbing or cyanosis or edema. Skin: Normal Vascular: Normal Current Medications: Current Medications Sig/Jaswinder Start time Last Medication Dose Route Stop Time Status Admin Albuterol Sulfate 3 ML Q4P PRN 06/15 1930 AC 06/16 INH 1007 Allopurinol 100 MG DAILY 06/16 1000 AC 06/18 PO 0948 Apixaban 2.5 MG BID 06/18 1000 AC 06/18 PO 1201 Atorvastatin Calcium 10 MG 1700 06/15 1700 AC 06/18 PO 1759 Budesonide/ 2 PUF BID 06/15 2200 AC 06/18 Formoterol Fumarate INH 0949 Carvedilol 12.5 MG BID 06/15 2200 AC 06/18 PO 1201 Docusate Sodium 100 MG DAILY 06/16 1000 AC 06/18 PO 0947 Furosemide 40 MG DAILY 06/16 1000 DC 06/18 PO 0947 Levothyroxine Sodium 0.025 MG DAILY AC 06/16 0700 AC 06/18 PO 0728 Losartan Potassium 50 MG DAILY 06/16 1000 DC 06/17 PO 0850 Morphine Sulfate 2 MG Q3P PRN 06/15 1600 AC 06/15 IV 2306 Omeprazole 40 MG DAILY AC 06/16 0700 AC 06/18 PO 0728 Ondansetron HCl 4 MG Q6P PRN 06/15 1600 AC IV Oxycodone/ 1 TAB Q4P PRN 06/15 1600 AC 06/16 Acetaminophen PO 1700 Oxycodone/ 2 TAB Q4P PRN 06/15 1600 AC 06/17 Acetaminophen PO 0849 Polyethylene Glycol 17 GM DAILY 06/16 1000 AC 06/16 PO 0914 Results Last 48 Hrs of Labs/Mics: Laboratory Tests 06/18/16 0345: Troponin I 0.08 06/18/16 0345: Anion Gap 5, Estimated GFR 41 L, Glucose 119 H, Calcium 8.6, Phosphorus 3.0, Magnesium 1.8, Total Bilirubin 0.6, AST 14 L, ALT 26, Albumin 2.6 L, CBC w Diff NO MAN DIFF REQ, RBC 3.33 L, MCV 93.1, MCH 30.8, RDW 15.6 H, MPV 8.4, Gran % 80.4 H, Lymphocytes % 13.1 L, Monocytes % 5.7, Eosinophils % 0.5, Basophils % 0.3, Absolute Granulocytes 8.4 H, Absolute Lymphocytes 1.4, Absolute Monocytes 0.6, Absolute Eosinophils 0.1, Absolute Basophils 0, PUBS MCHC 33.0 06/17/16 2220: Troponin I 0.08, CBC w Diff NO MAN DIFF REQ, RBC 3.47 L, MCV 93.8, MCH 31.3 H, RDW 15.6 H, MPV 8.5, Gran % 82.2 H, Lymphocytes % 11.6 L, Monocytes % 5.6, Eosinophils % 0.3, Basophils % 0.3, Absolute Granulocytes 10.0 H, Absolute Lymphocytes 1.4, Absolute Monocytes 0.7 H, Absolute Eosinophils 0, Absolute Basophils 0, PUBS MCHC 33.4 06/17/16 1625: Anion Gap 5, Estimated GFR 36 L, Glucose 136 H, Calcium 8.5, Phosphorus 3.8, Magnesium 1.9, Total Bilirubin 0.5, AST 18, ALT 25, Troponin I 0.12 *H, Albumin 2.9 L, CBC w Diff NO MAN DIFF REQ, RBC 3.48 L, MCV 93.8, MCH 31.1 H, RDW 15.7 H, MPV 8.8, Gran % 84.2 H, Lymphocytes % 9.2 L, Monocytes % 6.2, Eosinophils % 0.4, Basophils % 0 L, Absolute Granulocytes 10.5 H, Absolute Lymphocytes 1.1 L, Absolute Monocytes 0.8 H, Absolute Eosinophils 0, Absolute Basophils 0, PUBS MCHC 33.2 06/17/16 0410: Anion Gap 9, Estimated GFR 45 L, BUN/Creatinine Ratio 27.3 H, CBC w Diff MAN DIFF ORDERED, RBC 3.32 L, MCV 93.4, MCH 30.8, RDW 15.5 H, MPV 8.5, Gran % 86.7 H, Lymphocytes % 8.5 L, Monocytes % 4.7, Eosinophils % 0.1, Basophils % 0 L, Absolute Granulocytes 10.8 H, Segmented Neutrophils 84 H, Absolute Lymphocytes 1.1 L, Lymphocytes 9 L, Monocytes 6, Absolute Monocytes 0.6, Eosinophils 1, Absolute Eosinophils 0, Absolute Basophils 0, Platelet Estimate ADEQUATE, Polychromasia 1+, Poikilocytosis 1+, Ovalocytes 1+, PUBS MCHC 33.0, Fld Total RBCs Counted 100 Assessment/Plan Assessment/Plan Assessment: 1. Coronary artery disease, stable 2. Atrial fibrillation 3. ICD in place 4. Atrial fibrillation-rate elevated today 5. Status post surgery for metastatic Eugene cell carcinoma, postoperative day 2 Recommendations: -The patient's heart rate is improved. Continue current carvedilol dose for now -Keep the patient on panel monitor. -From a cardiac standpoint, the patient is stable to be transferred out of the ICU to [address] [place], [place] [address]etry. -Restart Eliquis today since H/H stable with no evidence of bleeding. -HOld Losartan and Lasix for today. -Reassess BP medication regimen in AM. OOB as tolerated. Continue telemetry? Yes
[2016-06-18 22:00] VITALS: BP 110/70
[2016-06-19 07:49] LABS: ABSOLUTE BASOPHIL COUNT 0 /CUMM (0.0-0.2); ABSOLUTE EOSINOPHIL COUNT 0.1 /CUMM (0.0-0.7); ABSOLUTE GRANULOCYTE CT 9.6 /CUMM (1.4-6.5); ABSOLUTE LYMPH COUNT 1.6 /CUMM (1.2-3.4); ABSOLUTE MONOCYTE COUNT 0.7 /CUMM (0.10-0.60); BASOPHIL % 0.2 % (0.0-2.0); EOSINOPHIL % 0.5 % (0-5); GRANULOCYTE % 80.2 % (42.2-75.2); HEMATOCRIT 33.5 % (42-52); MEAN CORPUSCULAR HGB 31.7 PG (27.0-31.0); MEAN CORPUSCULAR HGB CONC 33.5 G/DL (33.0-37.0); MEAN CORPUSCULAR VOLUME 94.7 FL (80.0-94.0); MEAN PLATELET VOLUME 8.9 FL (7.4-10.4); PLATELET COUNT 181 /CUMM (130-400); RBC DISTRIBUTION WIDTH 15.4 % (11.5-14.5); RED BLOOD CELL CT 3.53 /CUMM (4.70-6.10)
[2016-06-19 08:02] VITALS: BP 100/70
--- NOTE | 2016-06-19 08:27 | PN- General Surgery ---
See Addendum Subjective Subjective: No complaints. Reports pain controlled. Tolerating diet. No nausea. Out of bed to chair. No dizziness. No shortnes of breath. No chest pains. BP meds held yesterday (losartan / lasix). JANICE drain removed yesterday. Anticipates discharge home soon. Objective Vital Signs and I&Os Vital Signs Date Time Temp Pulse Resp B/P Pulse O2 O2 Flow FiO2 Ox Delivery Rate 06/19 0802 98.0 117 16 100/70 94 Nasal 1.0L Cannula 06/19 0000 Nasal 1.0L Cannula 06/18 2200 98.9 110 20 110/70 97 Nasal 1.0L Cannula 06/18 2159 110 120/70 06/18 1655 Nasal 1.0L Cannula 06/18 1530 98.0 65 20 134/72 96 Nasal 1.0L Cannula 06/18 1201 122 110/50 06/18 1200 97 Nasal 1.0L Cannula Intake & Output 06/19 1600 06/19 0800 06/19 0000 06/18 1600 06/18 0800 06/18 0000 Intake Total 120 360 720 100 320 Output Total 350 500 900 275 270 Balance -230 -140 -180 -175 50 Intake, IV 0 0 Intake, Oral 120 360 720 100 320 Number 0 0 0 Bowel Movements Output, 0 0 10 Drainage Output, Urine 350 500 900 275 260 Patient 196 lb Weight Physical Exam: General - alert & oriented. comfortable. no acute distress. Face - dressing changed. incision well approximated with running suture. no exudates or erythema. Neck - soft. no hematoma. Lungs - clear bilaterally. no w/r/r. Cardiac - irreg irreg. slightly tachy. Abdomen - soft. nontender. Extremities - warm bilaterally. no c/c/e. calves soft and nontender b/l. Assessment/Plan Assessment/Plan 85-year-old male POD#4 s/p left superficial parotidectomy and neck dissection, post-op cardiac related issues such as tachycardia (ongoing) and hypotension ( improved after holding bp meds yesterday) pain controlled tolerating diet f/u labs ?restart bp meds (losartan / lasix held yesterday) wean off o2 (1L) IS teaching eliquis bid dressing changed likely d/c soon, ?today will d/w (covering ) & Core Measures/Miscellaneous Andre Catheter Date In: 06/15/16 Venous Thromboembolism VTE Risk Factors: Age > 40, Surgery VTE Contraindications: No Contraindications VTE Prophylaxis Ordered Inpt [facility] VTE Diagnosis: No VTE Type: NONE VTE Confirmed by (Test): NONE Beta Tamiko Is Beta Tamiko a Home Med? Yes If Yes, Was This Ordered Today? Yes Antibiotics Is Patient on Antibiotics? No
--- NOTE | 2016-06-19 13:48 | RADIOLOGY REPORT ---
EXAMINATION: XR CHEST CLINICAL INFORMATION: Hypoxia. Postop leukocytosis. Presumptive diagnosis of atelectasis, questionable consolidation, question CHF. COMPARISON: Prior chest x-rays, most recent of which is dated 06/18/2016. CT scan of the chest dated 05/25/2016. TECHNIQUE: AP semierect and lateral portable views of the chest were obtained. FINDINGS: Left pectoral pacer generator is seen with right atrial pacer lead and 2 right ventricular AICD leads. The cardiomediastinal silhouette is enlarged. Calcification of the aortic arch is seen. There are low lung volumes with elevation of the left hemidiaphragm again seen. Associated patchy parenchymal opacity is seen in the left lower lobe, similar to the prior CT scan from 05/25/2016, perhaps related to chronic atelectasis versus unresolved pneumonia. Mild subsegmental atelectasis is seen in the right lower lobe, unchanged. No evidence of pulmonary edema or pneumothorax is seen. No acute bone findings. IMPRESSION: 1. No significant change in patchy areas of lung consolidation with volume loss in the left lower lobe leading to elevation of the left hemidiaphragm. Similar findings have been seen on the previous CT scan from 05/25/2016. 2. No significant pleural effusion or evidence of pulmonary edema is seen.
--- NOTE | 2016-06-19 14:10 | Surgical Discharge Summary ---
Visit Information Visit Dates Admission Date: 06/15/16 Discharge Date: 06/19/16 History of Present Illness Chief Complaint: eugene cell cancer Medical History Neurological: STROKE EENT: cataracts Cardiovascular: AFIB, CHF, ME, PACEMAKER, DEFIBRILAT HTN, HIGHCHOLESTEROL STEN Respiratory: LUNG CA Gastrointestinal: GERD Hepatic: NONE Renal: ? 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 Psychosocial History Where Do You Live? Home Who Do You Live With? Spouse Services at Home: None What is Your Primary Language? Portuguese Review of Systems: not assessed at d/c Hospital Course Course Attending Physician: WALESKA CARRERA,LELA Hendricks Primary Care Physician: DOUGLAS PLASENCIA MD Hospital Course: Patient was monitored postoperatively in the ICU and telemetry units for atrial fibrillation. His postoperative course was marked by atrial fibrillation with rapid rate. He was controlled medically. His anticoagulation was reinitiated on postop day #3. Allergies: Coded Allergies: caffeine (HEADACHES 05/05/16) Significant Procedures: Left superficial parotidectomy with neck dissection Disposition Summary Disposition Principal Diagnosis: Metastatic Eugene cell carcinoma Additional Diagnosis: Atrial fibrillation with rapid ventricular response Discharge Disposition: home or self care Discharge Instructions General Discharge Information Code Status: Full Code Patient's Diet: Heart healthy Patient's Activity: Ad rama. Follow-Up Instructions/Appts: 1 week Medications at Discharge Discharge Medications: Stop taking the following medications: Losartan Potassium (Cozaar) 50 MG TABLET ORAL DAILY Days = 30 Continue taking these medications: Simvastatin (Zocor) 20 MG TAB 1 Tablet ORAL Every night Apixaban (Eliquis) 2.5 MG TAB 1 Tablet ORAL Q12H Comments: PER PT Furosemide (Furosemide) 40 MG TAB 1 Tablet ORAL DAILY Comments: PER PT Esomeprazole (Nexium) 40 MG CAPSULE. 1 Capsule ORAL TWICE DAILY Qty = 30 Comments: DOCUMENTED "40MG BID" PER CMR DURING PRE-SX INTERVIEW PER PT MED LIST NOT GIVEN Cyanocobalamin/FA/Pyridoxine (Folbic Tablet) 1 EACH TABLET 1 Tablet ORAL DAILY Qty = 30 Comments: PER PT MED LIST NOT GIVEN Budesonide/Formoterol Fumarate (Symbicort 160-4.5 Mcg Inhaler) 10.2 GM HFA.AER.AD 2 Puff Inhale through mouth 2 x Daily as needed as needed for BREATHING Qty = 10 Comments: Last Taken:05/09/15 Time:9AM Cholecalciferol (Vitamin D3) (Vitamin D3) 1,000 UNIT CAPSULE 1 Capsule ORAL TWICE DAILY Comments: PER PT MED LIST Polyethylene Glycol 3350 (Clearlax) 17 GRAM/DOSE POWDER 0.5 Capsule ORAL DAILY Comments: NOT TAKEN Docusate Sodium (Colace) 100 MG CAPSULE 1 Capsule ORAL DAILY Comments: DOCUMENTED PER CMR DURING PRE-SX INTERVIEW Carvedilol (Coreg) 12.5 MG TABLET 1 Tablet ORAL TWICE DAILY Days = 30 Prednisone (Prednisone) 5 MG TABLET 1 Tablet ORAL See Instructions Days = 10 Instructions: 5mg 4tab one time 05/22/2016 5mg 3tab 2times a day 05/23/2016 to 05/24/2016 5mg 2tab 2times a day 05/25/2016 to 05/26/2016 5mg 1tab 2times a day 05/27/2016, continue till you meet with Dr. Plasencia Then Stop Levothyroxine Sodium (Levothyroxine Sodium) 25 MCG TABLET 1 Tablet ORAL DAILY BEFORE BREAKFAST Qty = 60 Allopurinol (Allopurinol) 100 MG TABLET 1 Tablet ORAL DAILY Qty = 60 Start taking the following new medications: Oxycodone HCl/Acetaminophen (Percocet 5-325 MG Tablet) 5 MG-325 MG TABLET 1-2 Tablet ORAL EVERY 4-6 HOURS as needed for PAIN Qty = 36 No Refills Copies To: ERINN CARRERA,DOUGLAS Bustamante
--- NOTE | 2016-06-19 14:13 | PN- Cardiology ---
Subjective Subjective: The patient is doing somewhat better today. Earlier in the day, he did desaturate slightly with exercise, however, after using incentive spirometry, the patient is now off of supplemental oxygen and ambulating well with no further issues. He denies any other symptoms. His blood pressure has been stable. His heart rate remains between 80 and 115. Objective Vital Signs and I&Os Vital Signs Date Time Temp Pulse Resp B/P Pulse O2 O2 Flow FiO2 Ox Delivery Rate 06/19 0902 116 124/62 06/19 0802 98.0 117 16 100/70 94 Nasal 1.0L Cannula 06/19 0800 94 Nasal 1.0L Cannula 06/19 0000 Nasal 1.0L Cannula 06/18 2200 98.9 110 20 110/70 97 Nasal 1.0L Cannula 06/18 2159 110 120/70 06/18 1655 Nasal 1.0L Cannula 06/18 1530 98.0 65 20 134/72 96 Nasal 1.0L Cannula Intake & Output 06/19 1600 06/19 0800 06/19 0000 06/18 1600 06/18 0800 06/18 0000 Intake Total 120 360 720 100 320 Output Total 350 500 900 275 270 Balance -230 -140 -180 -175 50 Intake, IV 0 0 Intake, Oral 120 360 720 100 320 Number 0 0 0 Bowel Movements Output, 0 0 10 Drainage Output, Urine 350 500 900 275 260 Patient 196 lb Weight Physical Exam: General: The patient is in no acute distress, alert and oriented 3 HEENT: Normal; postop changes left face and neck Neck: Supple with no JVD, no masses, and no thyromegaly, left neck dressing in place Lungs: Clear to auscultation and percussion bilaterally Heart: Irregularly irregular, S1, S2, slightly tachycardic, 2/6 systolic murmur. Abdomen: Soft, nontender, no masses. No hepatomegaly. No splenomegaly Extremities: No clubbing or cyanosis or edema. Skin: Normal Vascular: Normal Current Medications: Current Medications Sig/Jaswinder Start time Last Medication Dose Route Stop Time Status Admin Albuterol Sulfate 3 ML Q4P PRN 06/15 1930 DC 06/16 INH 1007 Allopurinol 100 MG DAILY 06/16 1000 AC 06/19 PO 0900 Apixaban 2.5 MG BID 06/18 1000 AC 06/19 PO 0859 Atorvastatin Calcium 10 MG 1700 06/15 1700 AC 06/18 PO 1759 Budesonide/ 2 PUF BID 06/15 2200 AC 06/19 Formoterol Fumarate INH 0903 Carvedilol 12.5 MG BID 06/15 2200 AC 06/19 PO 0902 Docusate Sodium 100 MG DAILY 06/16 1000 AC 06/19 PO 0859 Furosemide 40 MG DAILY 06/19 1330 AC 06/19 PO 1359 Levothyroxine Sodium 0.025 MG DAILY AC 06/16 0700 AC 06/19 PO 0612 Morphine Sulfate 2 MG Q3P PRN 06/15 1600 AC 06/15 IV 2306 Omeprazole 40 MG DAILY AC 06/16 0700 AC 06/19 PO 0612 Ondansetron HCl 4 MG Q6P PRN 06/15 1600 AC IV Oxycodone/ 1 TAB Q4P PRN 06/15 1600 AC 06/16 Acetaminophen PO 1700 Oxycodone/ 2 TAB Q4P PRN 06/15 1600 AC 06/18 Acetaminophen PO 2200 Polyethylene Glycol 17 GM DAILY 06/16 1000 AC 06/19 PO 0857 Results Last 48 Hrs of Labs/Mics: Laboratory Tests 06/19/16 0655: Anion Gap 8, Estimated GFR 45 L, BUN/Creatinine Ratio 29.3 H, Magnesium 1.8, CBC w Diff NO MAN DIFF REQ, RBC 3.53 L, MCV 94.7 H, MCH 31.7 H, RDW 15.4 H, MPV 8.9, Gran % 80.2 H, Lymphocytes % 13.4 L, Monocytes % 5.7, Eosinophils % 0.5, Basophils % 0.2, Absolute Granulocytes 9.6 H, Absolute Lymphocytes 1.6, Absolute Monocytes 0.7 H, Absolute Eosinophils 0.1, Absolute Basophils 0, PUBS MCHC 33.5 06/18/16 0345: Troponin I 0.08 06/18/16 0345: Anion Gap 5, Estimated GFR 41 L, Glucose 119 H, Calcium 8.6, Phosphorus 3.0, Magnesium 1.8, Total Bilirubin 0.6, AST 14 L, ALT 26, Albumin 2.6 L, CBC w Diff NO MAN DIFF REQ, RBC 3.33 L, MCV 93.1, MCH 30.8, RDW 15.6 H, MPV 8.4, Gran % 80.4 H, Lymphocytes % 13.1 L, Monocytes % 5.7, Eosinophils % 0.5, Basophils % 0.3, Absolute Granulocytes 8.4 H, Absolute Lymphocytes 1.4, Absolute Monocytes 0.6, Absolute Eosinophils 0.1, Absolute Basophils 0, PUBS MCHC 33.0 06/17/16 2220: Troponin I 0.08, CBC w Diff NO MAN DIFF REQ, RBC 3.47 L, MCV 93.8, MCH 31.3 H, RDW 15.6 H, MPV 8.5, Gran % 82.2 H, Lymphocytes % 11.6 L, Monocytes % 5.6, Eosinophils % 0.3, Basophils % 0.3, Absolute Granulocytes 10.0 H, Absolute Lymphocytes 1.4, Absolute Monocytes 0.7 H, Absolute Eosinophils 0, Absolute Basophils 0, PUBS MCHC 33.4 06/17/16 1625: Anion Gap 5, Estimated GFR 36 L, Glucose 136 H, Calcium 8.5, Phosphorus 3.8, Magnesium 1.9, Total Bilirubin 0.5, AST 18, ALT 25, Troponin I 0.12 *H, Albumin 2.9 L, CBC w Diff NO MAN DIFF REQ, RBC 3.48 L, MCV 93.8, MCH 31.1 H, RDW 15.7 H, MPV 8.8, Gran % 84.2 H, Lymphocytes % 9.2 L, Monocytes % 6.2, Eosinophils % 0.4, Basophils % 0 L, Absolute Granulocytes 10.5 H, Absolute Lymphocytes 1.1 L, Absolute Monocytes 0.8 H, Absolute Eosinophils 0, Absolute Basophils 0, PUBS MCHC 33.2 Assessment/Plan Assessment/Plan Assessment: 1. Coronary artery disease, stable 2. Atrial fibrillation 3. ICD in place 4. Atrial fibrillation-rate elevated today 5. Status post surgery for metastatic Eugene cell carcinoma, postoperative day 2 Recommendations: -The patient's heart rate is improved. Continue current carvedilol dose for now -Restart oral Lasix -From a cardiac standpoint, the patient is stable for discharge. He will be discharged on his regular home medications. His losartan will continue to be held for now. -Continue current oral anticoagulation. -As noted above, losartan remains on hold for now. The patient will check his blood pressure daily, call me with the numbers, and the losartan will be restarted at the appropriate time.. -Follow-up with me in the office in one to 2 weeks. -The patient's chest x-rays have shown chronic basilar atelectasis. I instructed the patient to continue to use his incentive spirometer at home until he sees me in the office. -The patient does have a chronically mildly elevated white blood cell count. This has improved and is unchanged. Continue telemetry? Yes
[2016-06-19 16:13] VITALS: BP 136/60
--- NOTE | 2016-06-19 16:19 | NUR ---
TELE EVENT: ALERTED BY SALES OUTFITTER PT HAD 7 BEAT RUN OF VTACH AT 15:54 PM. ASYMPTOMATIC AT THIS TIME. VSS FOLLOWS 136/60. T 98.1/P 112/R 18. 92% ON RA. NO S/S DISTRESS. DR NARVAEZ MADE AWARE AT 16:[address] NARVAEZ SAYS OK TO DISCHARGE AT THIS TIME.
== END 2016-06-19 17:07 | DRG 829 ==
LOC: ENRESERVTM → ENRESERVDT → SDA 03:45 → ENPENDDIS 03:45 → CRI 03:45 → 1NO 06-18 17:01
PROVIDERS: Nurse Practitioner; Physician Assistant; Physician Assistant Surgical; ADMIT Surgery
PROC: 0CB90ZZ Excision of Left Parotid Gland, Open Approach (ICD-10-PCS; principal; 2016-06-15)
PROC: 07B20ZZ Excision of Left Neck Lymphatic, Open Approach (ICD-10-PCS; principal; 2016-06-15)
DX: C7B.1 Secondary Merkel cell carcinoma (principal); I50.42 Chronic combined systolic (congestive) and diastolic (congestive) heart failure; I11.0 Hypertensive heart disease with heart failure; I24.8 Other forms of acute ischemic heart disease; I48.92 Unspecified atrial flutter; Z85.821 Personal history of Merkel cell carcinoma; I25.10 Atherosclerotic heart disease of native coronary artery without angina pectoris; I48.2 Chronic atrial fibrillation; J44.9 Chronic obstructive pulmonary disease, unspecified; E11.9 Type 2 diabetes mellitus without complications; E03.9 Hypothyroidism, unspecified; Z86.73 Personal history of transient ischemic attack (TIA), and cerebral infarction without residual deficits; K21.9 Gastro-esophageal reflux disease without esophagitis; Z95.1 Presence of aortocoronary bypass graft; Z95.0 Presence of cardiac pacemaker; I25.5 Ischemic cardiomyopathy; I25.2 Old myocardial infarction; Z85.46 Personal history of malignant neoplasm of prostate; Z85.118 Personal history of other malignant neoplasm of bronchus and lung; E78.5 Hyperlipidemia, unspecified; Z79.01 Long term (current) use of anticoagulants; Z87.891 Personal history of nicotine dependence
CPT/HCPCS: 1NP; CCU; 36415; 82436; 87086; 88305; 88307; 93005; 93010; 93306; 97116-GO; 97161-GP; J0131; J0690; J1644; J1720; J1940; J2405; J3490; J7040; J7042

== ENCOUNTER 2016-06-23 09:55 | Inpatient (IN) | payer OTHER, BC, MEDICARE ==
[~2016-06-23] VITALS: Ht 167.6 cm; Wt 85.8 kg
[~2016-06-23 09:55] MED LIST changes: +PERCOCET 5-3251 EACH PO
[2016-06-23 10:27] LABS: ABSOLUTE BASOPHIL COUNT 0 /CUMM (0.0-0.2); ABSOLUTE EOSINOPHIL COUNT 0.1 /CUMM (0.0-0.7); ABSOLUTE GRANULOCYTE CT 12.3 /CUMM (1.4-6.5); ABSOLUTE LYMPH COUNT 0.9 /CUMM (1.2-3.4); ABSOLUTE MONOCYTE COUNT 0.9 /CUMM (0.10-0.60); BASOPHIL % 0.2 % (0.0-2.0); EOSINOPHIL % 0.4 % (0-5); GRANULOCYTE % 87.1 % (42.2-75.2); HEMATOCRIT 35.9 % (42-52); MEAN CORPUSCULAR HGB 31.1 PG (27.0-31.0); MEAN CORPUSCULAR HGB CONC 33.1 G/DL (33.0-37.0); MEAN CORPUSCULAR VOLUME 93.7 FL (80.0-94.0); MEAN PLATELET VOLUME 8.8 FL (7.4-10.4); PLATELET COUNT 224 /CUMM (130-400); RBC DISTRIBUTION WIDTH 15.9 % (11.5-14.5); RED BLOOD CELL CT 3.83 /CUMM (4.70-6.10); WHITE BLOOD CELL COUNT 14.1 /CUMM (4.8-10.8)
--- NOTE | 2016-06-23 11:05 | ED GENERAL ADULT ---
History of Present Illness General Chief Complaint: General Adult Stated Complaint: BILATERAL LEG EDEMA Source: patient, family, old records, EMS Exam Limitations: no limitations Vital Signs & Intake/Output Vital Signs & Intake/Output Vital Signs Date Time Temp Pulse Resp B/P Pulse O2 O2 Flow FiO2 Ox Delivery Rate 06/23 1403 98.0 120 18 114/62 94 Nasal 2.0L Cannula 06/23 1400 Nasal 2.0L Cannula 06/23 1336 101.3 06/23 1231 101.3 102 20 124/72 98 Room Air 06/23 1137 100.1 98 18 96 Room Air 06/23 1051 100.4 108 20 129/61 96 Room Air 06/23 1016 124 06/23 1008 91 Nasal 2.0L Cannula 06/23 1001 100.2 122 20 145/67 92 Room Air Allergies Coded Allergies: No Known Allergies (06/23/16) Reconcile Medications Allopurinol 100 MG TABLET 1 TAB PO DAILY GOUT Apixaban (Eliquis) 2.5 MG TABLET 1 TAB PO BID BLOOD THINNER (Reported) Budesonide/Formoterol Fumarate (Symbicort 160-4.5 Mcg Inhaler) 10.2 GM HFA.AER.AD 2 PUF INH BIDP PRN BREATHING (Reported) Carvedilol (Coreg) 12.5 MG TABLET 1 TAB PO BID HTN Cholecalciferol (Vitamin D3) (Vitamin D3) 1,000 UNIT CAPSULE 1 CAP PO BID SUPPLEMENT (Reported) Cyanocobalamin/FA/Pyridoxine (Folbic Tablet) 1 EACH TABLET 1 TAB PO DAILY SUPPLEMENT (Reported) Docusate Sodium (Colace) 100 MG CAPSULE 1 CAP PO DAILY STOOL SOFTENER ( Reported) Esomeprazole (Nexium) 40 MG CAPSULE.DR 1 CAP PO BID GI (Reported) Furosemide (Lasix) 40 MG TABLET 1 TAB PO QAM DIURETIC (Reported) Levothyroxine Sodium 25 MCG TABLET 1 TAB PO DAILY AC THYROID Oxycodone HCl/Acetaminophen (Percocet 5-325 MG Tablet) 5 MG-325 MG TABLET 1-2 TAB PO Q4-6 PRN PAIN Polyethylene Glycol 3350 (Clearlax) 17 GRAM/DOSE POWDER 0.5 CAP PO DAILY GI ( Reported) Prednisone 5 MG TABLET 1 TAB PO QAM STEROID (Reported) Simvastatin (Zocor*) 20 MG TABLET 1 TAB PO QPM CHOLESTEROL (Reported) Core Measure Meds Pre-Hospital Eliquis Triage Note: PT PRESENTS TO ER C/O OF LOWER LEG EDEMA AND TROUBLE AMBULATING. PT STATES HE NOTICED HE WAS HAVING TROUBLE AMBULATING SINCE YESTERDAY. PT ALSO C/O OF PAIN TO BOTH LEGS. PT DENIES ANY RECENT FALLS. PT STATES HE WAS SEEN IN MAY FOR SIMILAR EPISODE AND ADMITTED. Triage Nurses Notes Reviewed? yes Onset: Last week Duration: day(s):, constant, continues in ED, getting worse Timing: recent history Severity: severe Modifying Factors: Improves With: rest. Worsens With: movement. HPI: One week prior to admission patient had facial surgery and was discharged 5 days ago. Since this time he is had progressive increase in edema to hands lower extremities now unable to ambulate. He denies fever chills nausea vomiting diarrhea abdominal pain chest pain shortness breath headache dysuria rash bleeding. Past History Travel History Traveled to [place] past 21 day No Medical History Any Pertinent Medical History? see below for history Neurological: STROKE EENT: cataracts Cardiovascular: AFIB, CHF, LA, PACEMAKER, DEFIBRILAT HTN, HIGHCHOLESTEROL STEN Respiratory: LUNG CA Gastrointestinal: GERD Hepatic: NONE Renal: ? KIDNEY DISEASE-ELEVATED BUN/CREAT Musculoskeletal: gout, L KNEE REPLACEMENT Psychiatric: NONE Endocrine: hypothyroidism Blood Disorders: NONE Cancer(s): prostate cancer, RIGHT UPPER LOBE REMOVED CA AND PORTION OF RIGHT LOWER LOBE CANCEROUS GROWTH L HEAD FRONT DESK MONITOR/Reproductive: NONE History of MRSA: No History of VRE: No History of CDIFF: No Influenza Vaccine: 02/09/10 Surgical History Surgical History: PACEMAKER AND DEFIBRILATO LEFT CHEST Psychosocial History Who do you live with Spouse Services at Home None What is your primary language Armenian Tobacco Use: Quit >30 days ago Family History Family History, If Any: FATHER (dIABETES MELLITUS). Hx Contributory? No Review of Systems Review of Systems Constitutional: Reports: see HPI, weakness. EENTM: Reports: no symptoms. Respiratory: Reports: no symptoms. Cardiovascular: Reports: see HPI, peripheral edema. GI: Reports: no symptoms. Genitourinary: Reports: no symptoms. Musculoskeletal: Reports: no symptoms. Skin: Reports: no symptoms. Neurological/Psychological: Reports: no symptoms. Hematologic/Endocrine: Reports: no symptoms. Immunologic/Allergic: Reports: no symptoms. All Other Systems: Reviewed and Negative Physical Exam Physical Exam General Appearance: well developed/nourished, alert, awake, anxious, moderate distress, obese Head: atraumatic, normal appearance Eyes: Bilateral: normal appearance, PERRL, EOMI. Ears, Nose, Throat: normal pharynx, normal ENT inspection Neck: normal inspection, supple, full range of motion, no midline tenderness Respiratory: chest non-tender, no respiratory distress, quiet respiration, decreased breath sounds Cardiovascular: regular rate/rhythm, normal peripheral pulses, norml femoral pulses equa Peripheral Pulses: 4+ carotid (R), 4+ carotid (L) Gastrointestinal: normal bowel sounds, soft, non-tender, no organomegaly Back: normal inspection, normal range of motion Extremities: pedal edema, no ligament instability Neurologic/Psych: no motor/sensory deficits, awake, alert, oriented x 3, normal mood/affect, meat passer II-XII nml as tested Reflexes: 2+: bicep (R), bicep (L). Skin: intact, normal color, warm/dry Lymphatic: no anterior cervical angelita Core Measures ACS in differential dx? Yes CVA/TIA Diagnosis: No Severe Sepsis Present: No Septic Shock Present: No Progress Differential Diagnoses I considered the following diagnoses in my evaluation of the patient: CHF pneumonia Plan of Care: Orders Procedure Date/time Status Regular Diet 06/24 L Active CBC WITHOUT DIFFERENTIAL 06/24 0600 Active BASIC ELECTROLYTES PLUS BUN&CR 06/24 0600 Active Heart Healthy Diet 06/23 L Active TROPONIN LEVEL 06/23 2200 Active EKG 06/23 2200 Active TROPONIN LEVEL 06/23 1600 Active EKG 06/23 1600 Active Vital Signs 06/23 1406 Active Teach/Educate 06/23 1406 Active Nutritional Intake, Monitor 06/23 1406 Active Isolation 06/23 1406 Active Intake & Output 06/23 1406 Active Patient Care Conference 06/23 1406 Active Activity/Ambulation 06/23 1406 Active STREP PNEUMO URINARY ANTIGEN 06/23 1337 Active LEGIONELLA URINARY ANTIGEN 06/23 1337 Active LOWER RESPIRATORY CULTURE 06/23 1337 Active Pathway - chart 06/23 1302 Active House Staff 06/23 1302 Active Patient Data 06/23 1207 Active URINALYSIS 06/23 1041 Complete OXYGEN SETUP (GEN) 06/23 1017 Active Saline Lock 06/23 1017 Active Admit to inpatient 06/23 1017 Active Vital Signs 06/23 1017 Active Activity/Ambulation 06/23 1017 Active Code Status 06/23 1017 Active BLOOD CULTURE 06/23 1016 Active TROPONIN LEVEL 06/23 1016 Complete MAGNESIUM 06/23 1016 Complete COMPREHENSIVE METABOLIC PANEL 06/23 1016 Complete CBC WITHOUT DIFFERENTIAL 06/23 1016 Complete B-TYPE NATRIURETIC PEP (BNP) 06/23 1016 Complete Intake & Output 06/23 1001 Active EKG 06/23 1000 Active TRC EVALUATION (GEN) 06/23 UNK Active CHF Core Measures 06/23 UNK Active Weight 06/23 UNK Active Laboratory Tests 06/23/16 1035: Urine Color YEL, Urine Clarity CLEAR, Urine pH 6.0, Ur Specific Snowflake 1.015, Urine Protein 30 H, Urine Ketones NEG, Urine Nitrite NEG, Urine Bilirubin NEG, Urine Urobilinogen 0.2, Ur Leukocyte Esterase NEG, Ur Microscopic SEDIMENT EXAMINED, Urine RBC RARE, Ur Epithelial Cells RARE, Hyaline Casts RARE H, Urine Hemoglobin TRACE-INTACT H, Urine Glucose NEG 06/23/16 1018: Anion Gap 11, Estimated GFR 41 L, BUN/Creatinine Ratio 20.0, Glucose 188 H, Calcium 9.5, Magnesium 1.7, Total Bilirubin 1.6 H, AST 25, ALT 24, Alkaline Phosphatase 90, Troponin I 0.15 *H, [id number] Pept 4930 H, Total Protein 6.6, Albumin 3.5, Globulin 3.1, Albumin/Globulin Ratio 1.1, CBC w Diff MAN DIFF ORDERED, RBC 3.83 L, MCV 93.7, MCH 31.1 H, RDW 15.9 H, MPV 8.8, Gran % 87.1 H, Lymphocytes % 6.2 L, Monocytes % 6.1, Eosinophils % 0.4, Basophils % 0.2, Absolute Granulocytes 12.3 H, Absolute Lymphocytes 0.9 L, Absolute Monocytes 0.9 H, Absolute Eosinophils 0.1, Absolute Basophils 0, Polychromasia 1+, Anisocytosis 1+, PUBS MCHC 33.1 Microbiology 06/23 133 URINE ROUT: Legionella Antigen - COLB 06/23 1336 URINE ROUT: Streptococcus pneumoniae Antigen (M - COLB 06/23 1336 LOWER RESP: Respiratory Culture - COLB 06/23 133 LOWER RESP: Gram Stain - COLB 06/23 1028 BLOOD: Blood Culture - RECD 06/23 1018 BLOOD: Blood Culture - RECD Diagnostic Imaging: Viewed by Me: Radiology Read. Discussed w/RAD: Radiology Read. Initial ED EKG: pacemaker rhythm, nonspecific ST T wave chg Prior EKG: changed Rhythm Strip: paced Departure Departure Time of Disposition: 1105 Disposition: STILL A PATIENT Condition: Stable Clinical Impression Primary Impression: Pneumonia Secondary Impressions: CHF (congestive heart failure), Chronic kidney disease, Elevated troponin, ST segment changes on electrocardiogram Referrals: ERINN CARRERA,DOUGLAS Bustamante (PCP/Family) Departure Forms: Customer Survey General Discharge Information Admission Note Spoke With: MAURICIO ARRIOLA MD Documentation of Exam: Documentation of any treatments & extenuating circumstances including Concerns Regarding Discharge (functional status, medication knowledge or non-compliance, living conditions, etc.) that warrant an admission rather than observation: IV diuresis IV antibiotics serial lab exam serial EKG cardiac monitoring dedication adjustment cardiology evaluation continuing care discharge planning Critical Care Note Critical Care Note Critical Care Time: 30-74 min (40)
--- NOTE | 2016-06-23 11:15 | RADIOLOGY REPORT ---
EXAMINATION: XR PORTABLE CHEST CLINICAL INFORMATION: CHF COMPARISON: June 19, 2016 TECHNIQUE: Portable AP view of the chest was obtained. FINDINGS: Left-sided pacemaker again noted. Stable cardiomegaly. Aortic arch calcifications. Low lung volumes. There is been no interval change in patchy parenchymal opacity within the left lower lobe and subsegmental atelectasis/scarring in the right lower lobe. No pulmonary edema or gross effusions. No pneumothorax. IMPRESSION: No significant interval change in patchy areas of consolidation and volume loss in the left lower lobe. No evidence of pulmonary edema.
--- NOTE | 2016-06-23 12:08 | History & Physical ---
See Addendum General Information and HPI MD Statement: I have seen and personally examined HESHAM CARLOS SR and documented this H&P. The patient is a 85 year old M who presented with a patient stated chief complaint of [worsening LL edema]. Source of Information: patient, old records Exam Limitations: no limitations History of Present Illness: This is an 85 YO Male very pleasent gentleman with past medical history significant for CAD s/p 7 stents, CHF, A. fib (status post defibrillator and pacemaker placed 2010) on Eliquis, TIA, gout, lung cancer s/p right lobe resection, prostate cancer, hypothyroidism, osteoarthritis, melanoma status post resection, COPD, hypertension, hyperlipidemia, presented with chief complaint of progressively worsening lower limb edema with inability to lay flat. Patient reports since after discharge around May 25 he continued to have shortness of breath on lying flat for which he has been laying on the recliner most of the time because of dyspnea associated with lying flat. However, for the past 2 days he noted progressive swelling of his lower limbs with significant weight gain over around 3-5 pounds. He has noted that when he waked up this morning he could not walk due to heaviness of his lower limbs. Patient reports that she continues to take his medication as indicated especially Lasix and he denies any excessive consumption of salts or drinking excessive amount of water. He has noted that for the past few days despite taking Lasix is not passing urine as he used to. The patient denies worsening shortness of breath or paroxysmal nocturnal dyspnea. He denies cough out of ordinary. Patient denies any sick contact he has no fever or chills however on presentation was febrile with temperature 100.2. The patient volunteers normal appetite, he has nausea but has not vomited he denies any abdominal pain and reports having regular bowel movements. Patient denies any difficulty passing urine or painful urination, no lightheadedness dizziness, chest pain or palpitations. Allergies/Medications Allergies: Coded Allergies: No Known Allergies (06/23/16) Home Med list Allopurinol 100 MG TABLET 1 TAB PO DAILY GOUT Apixaban (Eliquis) 2.5 MG TABLET 1 TAB PO BID BLOOD THINNER (Reported) Budesonide/Formoterol Fumarate (Symbicort 160-4.5 Mcg Inhaler) 10.2 GM HFA.AER.AD 2 PUF INH BIDP PRN BREATHING (Reported) Carvedilol (Coreg) 12.5 MG TABLET 1 TAB PO BID HTN Cholecalciferol (Vitamin D3) (Vitamin D3) 1,000 UNIT CAPSULE 1 CAP PO BID SUPPLEMENT (Reported) Cyanocobalamin/FA/Pyridoxine (Folbic Tablet) 1 EACH TABLET 1 TAB PO DAILY SUPPLEMENT (Reported) Docusate Sodium (Colace) 100 MG CAPSULE 1 CAP PO DAILY STOOL SOFTENER ( Reported) Esomeprazole (Nexium) 40 MG CAPSULE.DR 1 CAP PO BID GI (Reported) Furosemide (Lasix) 40 MG TABLET 1 TAB PO QAM DIURETIC (Reported) Levothyroxine Sodium 25 MCG TABLET 1 TAB PO DAILY AC THYROID Oxycodone HCl/Acetaminophen (Percocet 5-325 MG Tablet) 5 MG-325 MG TABLET 1-2 TAB PO Q4-6 PRN PAIN Polyethylene Glycol 3350 (Clearlax) 17 GRAM/DOSE POWDER 0.5 CAP PO DAILY GI ( Reported) Prednisone 5 MG TABLET 1 TAB PO QAM STEROID (Reported) Simvastatin (Zocor*) 20 MG TABLET 1 TAB PO QPM CHOLESTEROL (Reported) Past History Travel History Traveled to [place] past 21 day No Medical History Neurological: STROKE EENT: cataracts Cardiovascular: AFIB, CHF, OH, PACEMAKER, DEFIBRILAT HTN, HIGHCHOLESTEROL STEN Respiratory: LUNG CA Gastrointestinal: GERD Hepatic: NONE Renal: ? 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 SISTER (CAD). Psychosocial History Services at Home: None Functional Ability ADLs Independent: dressing, eating, toileting, bathing. Ambulation: independent, cane, non-ambulatory IADLs Independent: shopping, housework, finances, food prep, telephone, transportation , medication admin. Review of Systems Review of Systems Constitutional: Denies: chills, fever. EENTM: Denies: blurred vision, double vision. Cardiovascular: Reports: see HPI, peripheral edema. Denies: chest pain, palpitations. Respiratory: Denies: cough, short of breath, wheezing. GI: Reports: nausea. Denies: abdominal pain, vomiting. Genitourinary: Denies: no symptoms. Musculoskeletal: Denies: no symptoms. All Other Systems: Reviewed and Negative Exam & Diagnostic Data Last 24 Hrs of Vital Signs/I&O Vital Signs Date Time Temp Pulse Resp B/P Pulse O2 O2 Flow FiO2 Ox Delivery Rate 06/23 1231 101.3 102 20 124/72 98 Room Air 06/23 1137 100.1 98 18 96 Room Air 06/23 1051 100.4 108 20 129/61 96 Room Air 06/23 1016 124 06/23 1008 91 Nasal 2.0L Cannula 06/23 1001 100.2 122 20 145/67 92 Room Air Intake & Output 06/23 1600 06/23 0800 06/23 0000 Intake Total Output Total 750 Balance -750 Output, Urine 750 Patient 189 lb Weight Physical Exam General Appearance Alert, Oriented X3, Cooperative, No Acute Distress Skin No Rashes HEENT Atraumatic, surgical scar on the left face, healing well no discharge Neck Supple, No JVD, palpable nodes Cardiovascular Regular Rate, Normal S1, Normal S2 Lungs Clear to Auscultation, Normal Air Movement Abdomen Normal Bowel Sounds, Soft, No Tenderness Neurological Normal Speech, Normal Tone Extremities No Clubbing, No Cyanosis, Pitting edema extending to the knees Last 24 Hrs of Labs/Pro: Laboratory Tests 06/23/16 1035: Urine Color YEL, Urine Clarity CLEAR, Urine pH 6.0, Ur Specific [place] 1.015, Urine Protein 30 H, Urine Ketones NEG, Urine Nitrite NEG, Urine Bilirubin NEG, Urine Urobilinogen 0.2, Ur Leukocyte Esterase NEG, Ur Microscopic SEDIMENT EXAMINED, Urine RBC RARE, Ur Epithelial Cells RARE, Hyaline Casts RARE H, Urine Hemoglobin TRACE-INTACT H, Urine Glucose NEG 06/23/16 1018: Anion Gap 11, Estimated GFR 41 L, BUN/Creatinine Ratio 20.0, Glucose 188 H, Calcium 9.5, Magnesium 1.7, Total Bilirubin 1.6 H, AST 25, ALT 24, Alkaline Phosphatase 90, Troponin I 0.15 *H, Lgo-N-Qkplasigqum Pept 4930 H, Total Protein 6.6, Albumin 3.5, Globulin 3.1, Albumin/Globulin Ratio 1.1, CBC w Diff MAN DIFF ORDERED, RBC 3.83 L, MCV 93.7, MCH 31.1 H, RDW 15.9 H, MPV 8.8, Gran % 87.1 H, Lymphocytes % 6.2 L, Monocytes % 6.1, Eosinophils % 0.4, Basophils % 0.2, Absolute Granulocytes 12.3 H, Absolute Lymphocytes 0.9 L, Absolute Monocytes 0.9 H, Absolute Eosinophils 0.1, Absolute Basophils 0, Polychromasia 1+, Anisocytosis 1+, PUBS MCHC 33.1 Microbiology 06/23 1028 BLOOD: Blood Culture - RECD 06/23 1018 BLOOD: Blood Culture - RECD Diagnostic Data EKG Results Paced rhythm with RBBB No ST wave changes CXR Results No significant interval change in patchy areas of consolidation and volume loss in the left lower lobe. No evidence of pulmonary edema. Assessment/Plan Assessment: This is an 85 years old gentleman with extensive past medical history of coronary artery disease status post multiple stents pacemaker placement who has an A. fib on a liquids, CHF with ejection fraction of 40-45% on June 17 who presented with several days of orthopnea and 2 day history of progressive swelling of bilateral lower limbs. On presentation the patient was febrile with temperature 100.2, initial blood work showed an increasing proBNP to 4930, CXR shows no change in consolidation, has leukocytosis with white count of 14,100 and 87% granulocytes, with elevated troponin at 0.15. Problem list CHF exacerbation Elevated troponin Community-acquired Pneumonia Admitting the patient to the telemetry floor, cardiac monitoring, serial troponin and EKG to trend the troponin till when it plateau, has recent echo does not need to repeat. Daily weights and strict I and O's, IV Lasix 40 mg daily, CHF diet, Community-acquired pneumonia: Patient has lung consolidation elevated WBCs and low-grade fever he has significant hospital contact will cover the patient with ceftriaxone, lower respiratory culture, streptococcal and legionella antigens, follow-up blood culture results AFIB continue apixaban 2.5 mg twice a day COPD: Continue with Symbicort TRC nebs Gout: Continue allopurinol 100 mg daily and prednisone 5 mg daily Hypertension: Continue carvedilol 12.5 mg daily, check blood pressures every shift Hyperlipidemia: Continue simvastatin Hypothyroidism: Continue levothyroxine 25 g As Ranked By This Provider Problem List: 1. CONGESTIVE HEART FAILURE 2. LUNG CANCER 3. Elevated troponin 4. Atrial fibrillation 5. CKD (chronic kidney disease) Core Measures/Miscellaneous Acute Coronary Syndrome ACS Diagnosis: No Cerebrovascular Accident CVA/TIA Diagnosis: No Congestive Heart Failure CHF Diagnosis: Yes Date of most recent Echo: 06/17/16 Last Known EF %: 45 JAM/ARB for EF <40%: No Venous Thromboembolism VTE Risk Factors: Acute medical illness, Age > 40, Cancer/chemo/oth therapy VTE Prophylaxis Ordered Inpt: Pharm- Eliquis No Mech VTE prophylaxis d/t: LE Edema No VTE Pharm Prophylaxis d/t: No contraindications VTE Diagnosis: No VTE Type: NONE VTE Confirmed by (Test): NONE Severe Sepsis Severe Sepsis Present: No Septic Shock Septic Shock Present: No Miscellaneous Documentation Attending Case Discussed With: MAURICIO ARRIOLA MD Primary Care Physician: DOUGLAS PLASENCIA MD Patient sees these Specialists MD Dr. Salvador Boss Level of Patient Care: Telemetry Resident Review Statement Resident Statement: examined this patient, My review as above
[2016-06-23] MEDS ORDERED: PREDNISONE5 M1 PO (12:58)
[2016-06-23 14:03] VITALS: BP 114/62
[2016-06-23 16:40] VITALS: BP 118/56
--- NOTE | 2016-06-23 21:23 | Admission Certification ---
Admission Certification Certification Statement - As attending physician, I certify that at the time of - admission, based on clinical presentation, severity of - symptoms, need for further diagnostic testing and - therapeutic interventions, and risk of adverse outcomes - without in-hospital treatment, in my clinical assessment, - this patient requires an acute hospital stay for a minimum - of two nights or longer. I have also considered psychsocial - factors such as support system, advanced age, financial - issues, cognitive issues, and failed out-patient treatments, - past re-admission history, safety of patient, and lack of - compliance as applicable. Specific rationale supporting this admission is: Acute CHF with elevated troponin
[2016-06-24 00:26] VITALS: BP 90/40
[2016-06-24 05:14] LABS: ABSOLUTE BASOPHIL COUNT 0 /CUMM (0.0-0.2); ABSOLUTE EOSINOPHIL COUNT 0 /CUMM (0.0-0.7); ABSOLUTE GRANULOCYTE CT 11.1 /CUMM (1.4-6.5); ABSOLUTE MONOCYTE COUNT 1.1 /CUMM (0.10-0.60); BASOPHIL % 0.3 % (0.0-2.0); EOSINOPHIL % 0.4 % (0-5); MEAN CORPUSCULAR HGB 31.6 PG (27.0-31.0); MEAN CORPUSCULAR HGB CONC 33.8 G/DL (33.0-37.0); MEAN CORPUSCULAR VOLUME 93.4 FL (80.0-94.0); MEAN PLATELET VOLUME 8.8 FL (7.4-10.4); PLATELET COUNT 161 /CUMM (130-400); RBC DISTRIBUTION WIDTH 16.1 % (11.5-14.5); RED BLOOD CELL CT 3.11 /CUMM (4.70-6.10); WHITE BLOOD CELL COUNT 13.3 /CUMM (4.8-10.8)
[2016-06-24 05:57] LABS: GRANULOCYTE % 83.2 % (42.2-75.2)
--- NOTE | 2016-06-24 07:08 | PN- Housestaff ---
GARY CARRERA,DONNY 06/24/16 0707: Subjective Follow-up For: Acute on chronic CHF exacerbation Pneumonia Complaints: shortness of breath LE edema Tele-Events Since Last Visit: tachycardia at 110-120s, paced rhythm multiple 3 beats V-tach Subjective: Pt is eating breakfast comfortably. His breathing is better than yesterday, No overnight fever. He has intermittent cough with whitish sputum. He denies any chest pain. He has chronic LE edema. Review of Systems Constitutional: Denies: chills, fever, weakness. EENTM: Reports: no symptoms. Cardiovascular: Reports: orthopena, peripheral edema. Denies: chest pain, palpitations. Respiratory: Reports: cough, orthopnea, short of breath, sputum production. Denies: wheezing. Gastrointestinal: Denies: abdominal pain, diarrhea, nausea, changes in stool. Genitourinary: Reports: no symptoms. Musculoskeletal: Reports: no symptoms. Skin: Reports: see HPI (s/p melena excision). Neurological/Psychological: Reports: no symptoms. Hematologic/Endocrine: Reports: no symptoms. Immunologic/Allergic: Reports: no symptoms. Objective Last 24 Hrs of Vital Signs/I&O Vital Signs Date Time Temp Pulse Resp B/P Pulse O2 O2 Flow FiO2 Ox Delivery Rate 06/24 0925 120 118/62 06/24 0812 98.3 120 20 118/62 97 Nasal 2.0L Cannula 06/24 0800 Nasal 2.0L Cannula 06/24 0026 98.0 118 18 90/40 97 Nasal Cannula 06/24 0000 Nasal 2.0L Cannula 06/23 2128 113 120/60 06/23 1640 98.4 118 17 118/56 97 Nasal 2.0L Cannula 06/23 1403 98.0 120 18 114/62 94 Nasal 2.0L Cannula 06/23 1400 98.0 06/23 1400 Nasal 2.0L Cannula 06/23 1336 101.3 06/23 1231 101.3 102 20 124/72 98 Room Air Intake & Output 06/24 1600 06/24 0800 06/24 0000 Intake Total 250 600 Output Total 300 1175 Balance -50 -575 Intake, IV 10 Intake, Oral 240 600 Output, Urine 300 1175 Patient 189 lb Weight Physical Exam General Appearance: Alert, Oriented X3, Cooperative, No Acute Distress Skin: s/p melena excision, Lt. face HEENT: Atraumatic, PERRLA, EOMI, Mucous Membr. moist/pink Neck: Supple, +2 Carotid Pulse wo Bruit, No LAD Lymphatic: Cervical nl Cardiovascular: Normal S1, Normal S2, tachycardic, systolic murmurs Lungs: Clear to Auscultation, decreased breathing sound, LLL Abdomen: Normal Bowel Sounds, Soft, No Tenderness Neurological: Normal Speech, Strength at 5/5 X4 Ext, Normal Tone, Sensation Intact Extremities: Normal Pulses, bilateral LE pitting edema 2+ Vascular: Normal Pulses, Pulses Symmetrical Current Medications: Current Medications Sig/Jaswinder Start time Last Medication Dose Route Stop Time Status Admin Acetaminophen 650 MG Q6P PRN 06/23 1500 AC PO Acetaminophen 650 MG ONCE ONE 06/23 1345 DC 06/23 PO 06/23 1346 1336 Acetaminophen 0 .STK-MED ONE 06/23 1336 DC PO Allopurinol 100 MG DAILY 06/24 1000 AC 06/24 PO 0926 Apixaban 2.5 MG BID 06/23 2200 AC 06/24 PO 0925 Atorvastatin Calcium 10 MG 1700 06/23 1700 AC 06/23 PO 1640 Azithromycin 500 MG DAILY 06/24 1000 AC 06/24 Dextrose/Water 250 ML IV 0927 Budesonide/ 2 PUF BID 06/23 2200 AC 06/24 Formoterol Fumarate INH 27 Carvedilol 12.5 MG BID 06/23 2200 AC 06/24 PO 0925 Ceftriaxone Sodium 1,000 MG DAILY 06/24 1000 AC 06/24 IV 0927 Cholecalciferol 1,000 IU DAILY 06/24 1000 AC 06/24 PO 0926 Cyanocobalamin 2,000 MCG DAILY 06/24 1000 AC 06/24 PO 0926 Docusate Sodium 100 MG DAILY 06/24 1000 AC 06/24 PO 0925 Doxycycline Hyclate 100 MG ONCE ONE 06/23 1145 DC 06/23 Sodium Chloride 100 ML IV 06/23 1250 1229 Folic Acid 1 MG DAILY 06/24 1000 AC 06/24 PO 0926 Furosemide 40 MG DAILY 06/25 1000 AC IV Furosemide 40 MG 7:30 AM, & 4:30 PM 06/23 1630 DC 06/24 IV 0927 Levothyroxine Sodium 0.025 MG DAILY AC 06/24 0700 AC 06/24 PO 0620 Magnesium Oxide 400 MG ONE ONE 06/23 1345 DC 06/23 PO 06/23 1346 1640 Morphine Sulfate 1 MG Q6-PRN PRN 06/23 1500 AC IV Non-Formulary 0 SEE ADMIN CRITERIA 06/23 1500 CAN Medication ANY Omeprazole 40 MG DAILY AC 06/24 0700 AC 06/24 PO 0620 Oxycodone/ 1 TAB Q6P PRN 06/23 1500 AC 06/24 Acetaminophen PO 0955 Polyethylene Glycol 17 GM DAILY 06/24 1000 AC 06/24 PO 0926 Prednisone 5 MG DAILY 06/24 1000 AC 06/24 PO 0926 Pyridoxine HCl 25 MG DAILY 06/24 1000 AC 06/24 PO 0926 Last 24 Hrs of Lab/Pro Results Last 24 Hrs of Labs/Mics: Laboratory Tests 06/24/16 1110: Troponin I Pending 06/24/16 0435: Anion Gap 6, Estimated GFR 39 L, BUN/Creatinine Ratio 18.8, Troponin I 0.18 *H, CBC w Diff NO MAN DIFF REQ, RBC 3.11 L, MCV 93.4, MCH 31.6 H, RDW 16.1 H, MPV 8.8, Gran % 83.2 H, Lymphocytes % 7.9 L, Monocytes % 8.2, Eosinophils % 0.4, Basophils % 0.3, Absolute Granulocytes 11.1 H, Absolute Lymphocytes 1.0 L, Absolute Monocytes 1.1 H, Absolute Eosinophils 0, Absolute Basophils 0, PUBS MCHC 33.8 06/23/16 2200: Troponin I 0.18 *H 06/23/16 1630: Troponin I 0.18 *H Microbiology 06/23 1336 URINE ROUT: Legionella Antigen - COLB 06/23 1336 URINE ROUT: Streptococcus pneumoniae Antigen (M - COLB 06/23 1336 LOWER RESP: Respiratory Culture - COLB 06/23 1336 LOWER RESP: Gram Stain - COLB Orders ECHO Findings: 06/17/16 1. This was a technically difficult examination. 2. Aortic sclerosis is present with mild aortic insufficiency. 3. Mitral leaflet thickening is present with mild mitral insufficiency and moderate to severe left atrial enlargement. 4. There is no significant pericardial fluid present. 5. The left ventricular chamber size is normal with moderate concentric hypertrophy. There is global hypokinesia present which appears to be worse in the inferoposterior segments. The ejection fraction is approximately 40% but I believe that it is underestimated due to the patient's rapid rate and a followup study should be performed when the patient's heart rate is better controlled to reassess LV function. 6. Mild tricuspid insufficiency is present with mild pulmonary hypertension. Lines/Diet/Fluids Lines: peripheral lines Assessment/Plan Assessment: 85 year-old gentleman with past medical history of CAD s/p status post 7 stents, A. fib on a liquids s/p pacemaker placement, HFrEF (ejection fraction 40-45%), TIA, gout, lung cancer s/p right lobe resection, prostate cancer, hypothyroidism , osteoarthritis, s/p melanoma resection, COPD, hypertension, hyperlipidemia presented with several days of orthopnea and 2-day history of progressive swelling of bilateral lower limbs. On presentation the patient was febrile with temperature 100.2, initial blood work showed an increasing proBNP to 4930, CXR shows consolidation and volume loss in the left lower lobe, has leukocytosis with white count of 14,100 and 87% granulocytes, with elevated troponin at 0.15. 1. Acute on chronic CHF exacerbation: Patient was given IV lasix 40mg BID 1 day ago. Most recent echo was done on 06/17/16, no need to repeat. Continue gentle IV diuresis 40mg daily with BEP monitoring. monitor Daily weights and strict I and O's. - 1325 1 day ago. 2. Sepsis secondary to community-acquired pneumonia: Patient has fever, leukocytosis with LLL lung consolidation, continue IV ceftriaxone/azithromycin, follow up lower respiratory culture, streptococcal and legionella antigens, blood culture results, continue TRC/nebs. 3. Elevated troponin: Likely secondary to demand ischemia, Troponin x 3 sets showing constant troponin of 0.18, follow up 11am troponin. Continue tele monitoring. 4. AFIB on coumadin s/p PM: pt is having tachycardia around 110-120s. continue apixaban 2.5 mg twice a day, follow up cardiology recommendation. 5. COPD: Continue with Symbicort TRC nebs 6. Gout: Continue allopurinol 100 mg daily and prednisone 5 mg daily 7. Hypertension: Continue carvedilol 12.5 mg daily, check blood pressures every shift 8. Hyperlipidemia: Continue simvastatin 9. Hypothyroidism: Continue levothyroxine 25 g DVT ppx: po eliquis full code Problem List: 1. CONGESTIVE HEART FAILURE 2. Elevated troponin 3. Pneumonia Pain Ratin Pain Location: NA Pain Goal: Remain pain free Pain Plan: po tyrenol, IV morphine prn Tomorrow's Labs & Rationales: CBC - infection BEP - with IV diuresis, f/u Na, K, BUN/Cr DVT/Prophylaxis: pharmacological Discharge Plan Stable for Discharge? No MAURICIO ARRIOLA MD 06/24/16 1154: Attending MD Review Statement Attending Statement Attending MD Statement: examined this patient, discuss w/resident/PA/INTERLOCKING INSTALLER, agreed w/resident/PA/INTERLOCKING INSTALLER, reviewed EMR data (avail) Attending Assessment/Plan: 85M PMH CAD s/p 7 stents, CHF, A. fib (status post defibrillator and pacemaker placed 2010) on Eliquis, TIA, gout, lung cancer s/p right lobe resection, prostate cancer, hypothyroidism, osteoarthritis, melanoma status post resection, COPD, hypertension, hyperlipidemia admitted with orthopnea, dyspnea on exertion, LE swelling, and 3-5 pound weight gain. Recently seen by surgery for facial melanoma excision. EKG no acute changes, troponin 0.15, labs otherwise normal. Fluid overladed by exam. 1. Acute on chronic systolic CHF 2. Elevated troponin 3. Hypervolemia 4. Orthopnea 5. Melanoma 6. Chronic atrial fibrillation Plan - Admit to telemetry - Lasix 40mg IV daily, careful not to over-diurese, as patient has a history of this - I/O, daily weights - Cardiology consult - Trend troponin to peak - Serial EKG - Continue home medications - PT eval - DVT PPx
[2016-06-24 08:12] VITALS: BP 118/62
--- NOTE | 2016-06-24 13:03 | Cons- Cardiology ---
General Information and HPI Consulting Request Date of Consult: 06/24/16 Requested By: MAURICIO ARRIOLA MD Reason for Consult: Worsening lower extremity edema Source of Information: patient, family, old records History of Present Illness: The patient is an 85-year-old male who is well-known to me. 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 Postoperatively, the patient was noted to be tachycardic and hypotensive. He received multiple boluses of IV fluid. Initially his losartan, carvedilol, and Lasix were held. Prior to discharge, the patient was started back on his carvedilol and low-dose Lasix. Losartan was kept on hold. The patient was discharged in stable condition. Yesterday, the patient woke in the morning, and noted that his lower extremities were markedly more edematous than the previous day. He had difficulty walking. He was brought to the emergency room by his family. No other cardiovascular symptoms were noted Allergies/Medications Allergies: Coded Allergies: No Known Allergies (06/23/16) Home Med List: Allopurinol 100 MG TABLET 1 TAB PO DAILY GOUT Apixaban (Eliquis) 2.5 MG TABLET 1 TAB PO BID BLOOD THINNER (Reported) Budesonide/Formoterol Fumarate (Symbicort 160-4.5 Mcg Inhaler) 10.2 GM HFA.AER.AD 2 PUF INH BIDP PRN BREATHING (Reported) Carvedilol (Coreg) 12.5 MG TABLET 1 TAB PO BID HTN Cholecalciferol (Vitamin D3) (Vitamin D3) 1,000 UNIT CAPSULE 1 CAP PO BID SUPPLEMENT (Reported) Cyanocobalamin/FA/Pyridoxine (Folbic Tablet) 1 EACH TABLET 1 TAB PO DAILY SUPPLEMENT (Reported) Docusate Sodium (Colace) 100 MG CAPSULE 1 CAP PO DAILY STOOL SOFTENER ( Reported) Esomeprazole (Nexium) 40 MG CAPSULE.DR 1 CAP PO BID GI (Reported) Furosemide (Lasix) 40 MG TABLET 1 TAB PO QAM DIURETIC (Reported) Levothyroxine Sodium 25 MCG TABLET 1 TAB PO DAILY AC THYROID Oxycodone HCl/Acetaminophen (Percocet 5-325 MG Tablet) 5 MG-325 MG TABLET 1-2 TAB PO Q4-6 PRN PAIN Polyethylene Glycol 3350 (Clearlax) 17 GRAM/DOSE POWDER 0.5 CAP PO DAILY GI ( Reported) Prednisone 5 MG TABLET 1 TAB PO QAM STEROID (Reported) Simvastatin (Zocor*) 20 MG TABLET 1 TAB PO QPM CHOLESTEROL (Reported) Past History Travel History Traveled to [place] past 21 day No Medical History Blood Transfusion Hx: Yes Neurological: STROKE EENT: cataracts Cardiovascular: AFIB, CHF, IN, PACEMAKER, DEFIBRILAT HTN, HIGHCHOLESTEROL STEN Respiratory: LUNG CA Gastrointestinal: GERD Hepatic: NONE Renal: ? 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 SISTER (CAD). Psychosocial History Where Do You Live? Home Services at Home: None Smoking Status: Former Smoker Functional Ability ADLs Independent: dressing, eating, toileting, bathing. Ambulation: independent, cane, non-ambulatory IADLs Independent: shopping, housework, finances, food prep, telephone, transportation , medication admin. Exam & Diagnostic Data Vital Signs and I&O Vital Signs Date Time Temp Pulse Resp B/P Pulse O2 O2 Flow FiO2 Ox Delivery Rate 06/24 0925 120 118/62 06/24 0812 98.3 120 20 118/62 97 Nasal 2.0L Cannula 06/24 0800 Nasal 2.0L Cannula 06/24 0026 98.0 118 18 90/40 97 Nasal Cannula 06/24 0000 Nasal 2.0L Cannula 06/23 2128 113 120/60 06/23 1640 98.4 118 17 118/56 97 Nasal 2.0L Cannula 06/23 1403 98.0 120 18 114/62 94 Nasal 2.0L Cannula 06/23 1400 98.0 06/23 1400 Nasal 2.0L Cannula 06/23 1336 101.3 Intake & Output 06/24 1600 06/24 0800 06/24 0000 06/23 1600 06/23 0800 06/23 0000 Intake Total 250 600 Output Total 300 1175 750 Balance -50 -575 -750 Intake, IV 10 Intake, Oral 240 600 Output, Urine 300 1175 750 Patient 189 lb 189 lb Weight Physical Exam: General Appearance Alert, Oriented X3, Cooperative, No Acute Distress Skin Normal HEENT Atraumatic, surgical scar on the left face, healing well no discharge Neck Supple, No JVD, carotids normal Cardiovascular Regular Rate, Normal S1, Normal S2, 1-2/6 systolic murmur Lungs Clear to Auscultation Abdomen Normal Bowel Sounds, Soft, No Tenderness Neurological Nonfocal Extremities No Clubbing, No Cyanosis, Pitting edema extending to the knees Labs/Pro Results: Laboratory Tests 06/24 06/24 06/23 1110 0435 2200 Chemistry Sodium (137 - 145 mmol/L) 137 Potassium (3.5 - 5.1 mmol/L) 3.7 Chloride (98 - 107 mmol/L) 96 L Carbon Dioxide (22 - 30 mmol/L) 36 H Anion Gap (5 - 16) 6 BUN (9 - 20 mg/dL) 32 H Creatinine (0.7 - 1.2 mg/dL) 1.7 H Estimated GFR (>60 ml/min) 39 L BUN/Creatinine Ratio (7 - 25 %) 18.8 Troponin I (<0.11 ng/ml) Pending 0.18 *H 0.18 *H Hematology CBC w Diff NO MAN DIFF REQ WBC (4.8 - 10.8 /CUMM) 13.3 H RBC (4.70 - 6.10 /CUMM) 3.11 L Hgb (14.0 - 18.0 G/DL) 9.8 L Hct (42 - 52 %) 29.0 L MCV (80.0 - 94.0 FL) 93.4 MCH (27.0 - 31.0 PG) 31.6 H RDW (11.5 - 14.5 %) 16.1 H Plt Count (130 - 400 /CUMM) 161 MPV (7.4 - 10.4 FL) 8.8 Gran % (42.2 - 75.2 %) 83.2 H Lymphocytes % (20.5 - 51.1 %) 7.9 L Monocytes % (1.7 - 9.3 %) 8.2 Eosinophils % (0 - 5 %) 0.4 Basophils % (0.0 - 2.0 %) 0.3 Absolute Granulocytes (1.4 - 6.5 /CUMM) 11.1 H Absolute Lymphocytes (1.2 - 3.4 /CUMM) 1.0 L Absolute Monocytes (0.10 - 0.60 /CUMM) 1.1 H Absolute Eosinophils (0.0 - 0.7 /CUMM) 0 Absolute Basophils (0.0 - 0.2 /CUMM) 0 PUBS MCHC (33.0 - 37.0 G/DL) 33.8 06/23 06/23 1630 1035 Chemistry Troponin I (<0.11 ng/ml) 0.18 *H Urines Urine Color (YEL,AMB,STR) YEL Urine Clarity (CLEAR) CLEAR Urine pH (5.0 - 8.0) 6.0 Ur Specific [place] (1.001 - 1.035) 1.015 Urine Protein (NEG,<30 MG/DL) 30 H Urine Ketones (NEG) NEG Urine Nitrite (NEG) NEG Urine Bilirubin (NEG) NEG Urine Urobilinogen (0.1 - 1.0 EU/dl) 0.2 Ur Leukocyte Esterase (NEG) NEG Ur Microscopic SEDIMENT EXAMINED Urine RBC (0 - 5 /HPF) RARE Ur Epithelial Cells (NONE,FEW) RARE Hyaline Casts (0/LPF) RARE H Urine Hemoglobin (NEG) TRACE-INTACT H Urine Glucose (N MG/DL) NEG 06/23 1018 Chemistry Sodium (137 - 145 mmol/L) 138 Potassium (3.5 - 5.1 mmol/L) 4.0 Chloride (98 - 107 mmol/L) 94 L Carbon Dioxide (22 - 30 mmol/L) 33 H Anion Gap (5 - 16) 11 BUN (9 - 20 mg/dL) 32 H Creatinine (0.7 - 1.2 mg/dL) 1.6 H Estimated GFR (>60 ml/min) 41 L BUN/Creatinine Ratio (7 - 25 %) 20.0 Glucose (65 - 99 mg/dL) 188 H Calcium (8.4 - 10.2 mg/dL) 9.5 Magnesium (1.6 - 2.3 mg/dL) 1.7 Total Bilirubin (0.2 - 1.3 mg/dL) 1.6 H AST (17 - 59 U/L) 25 ALT (21 - 72 U/L) 24 Alkaline Phosphatase (< 127 U/L) 90 Troponin I (<0.11 ng/ml) 0.15 *H [id number] Pept (<125 pg/mL) 4930 H Total Protein (6.3 - 8.2 g/dL) 6.6 Albumin (3.5 - 5.0 g/dL) 3.5 Globulin (1.9 - 4.2 gm/dL) 3.1 Albumin/Globulin Ratio (1.1 - 2.2 %) 1.1 Hematology CBC w Diff MAN DIFF ORDERED WBC (4.8 - 10.8 /CUMM) 14.1 H RBC (4.70 - 6.10 /CUMM) 3.83 L Hgb (14.0 - 18.0 G/DL) 11.9 L Hct (42 - 52 %) 35.9 L MCV (80.0 - 94.0 FL) 93.7 MCH (27.0 - 31.0 PG) 31.1 H RDW (11.5 - 14.5 %) 15.9 H Plt Count (130 - 400 /CUMM) 224 MPV (7.4 - 10.4 FL) 8.8 Gran % (42.2 - 75.2 %) 87.1 H Lymphocytes % (20.5 - 51.1 %) 6.2 L Monocytes % (1.7 - 9.3 %) 6.1 Eosinophils % (0 - 5 %) 0.4 Basophils % (0.0 - 2.0 %) 0.2 Absolute Granulocytes (1.4 - 6.5 /CUMM) 12.3 H Absolute Lymphocytes (1.2 - 3.4 /CUMM) 0.9 L Absolute Monocytes (0.10 - 0.60 /CUMM) 0.9 H Absolute Eosinophils (0.0 - 0.7 /CUMM) 0.1 Absolute Basophils (0.0 - 0.2 /CUMM) 0 Polychromasia 1+ Anisocytosis 1+ PUBS MCHC (33.0 - 37.0 G/DL) 33.1 Diagnostic Data CXR Results FINDINGS: Left-sided pacemaker again noted. Stable cardiomegaly. Aortic arch calcifications. Low lung volumes. There is been no interval change in patchy parenchymal opacity within the left lower lobe and subsegmental atelectasis/scarring in the right lower lobe. No pulmonary edema or gross effusions. No pneumothorax. IMPRESSION: No significant interval change in patchy areas of consolidation and volume loss in the left lower lobe. No evidence of pulmonary edema. Assessment/Plan Assessment/Plan Assessment: 1. Worsening lower extremity edema 2. Abnormal chest x-ray 3. History of known coronary artery disease 4. History of hypertension 5. Chronic renal insufficiency 6. Minimally elevated troponin Recommendations: -Telemetry admission; trend troponin until decreasing; follow-up ECG in a.m. -IV Lasix diuresis with close monitoring of intakes, outputs, and daily weights -No need to repeat echocardiogram at the present time -Out of bed as tolerated -Maintain lower extremity elevation as much as possible - Consult Acknowledgment - Thank you for your consult request.
[2016-06-24 15:49] VITALS: BP 110/60
[2016-06-24 23:27] VITALS: BP 112/60
--- NOTE | 2016-06-25 07:09 | PN- Housestaff ---
GARY CARRERA,DONNY 06/25/16 0709: Subjective Follow-up For: Acute on chronic HF pneumonia Complaints: pain scale (0-10) (6/10 leg pain) Tele-Events Since Last Visit: 6 beats V-tach, paced rhythm Subjective: He has bilateral LE pain with worsening edema, 6/10. He denies calf pain but ant.lilly area. He has upper arm swelling, too. He has exertional dyspnea. No chest pain / palpitation. Review of Systems Constitutional: Denies: chills, fever, weakness. EENTM: Reports: no symptoms. Cardiovascular: Reports: edema, peripheral edema. Denies: chest pain, palpitations, syncope. Respiratory: Reports: cough, short of breath. Denies: sputum production, wheezing. Gastrointestinal: Denies: abdominal pain, diarrhea, nausea, vomiting. Genitourinary: Reports: no symptoms. Musculoskeletal: Reports: see HPI. Skin: Reports: lesions (s/p melanoma excision). Neurological/Psychological: Reports: no symptoms. Hematologic/Endocrine: Reports: no symptoms. Immunologic/Allergic: Reports: no symptoms. Objective Last 24 Hrs of Vital Signs/I&O Vital Signs Date Time Temp Pulse Resp B/P Pulse O2 O2 Flow FiO2 Ox Delivery Rate 06/25 0827 98.5 98 20 115/54 94 Nasal 2.0L Cannula 06/25 0741 95 Nasal 2.0L Cannula 06/25 0000 Nasal 2.0L Cannula 06/24 2327 98.7 117 20 112/60 98 Nasal Cannula 06/24 2214 118 116/54 06/24 1600 Nasal 2.0L Cannula 06/24 1549 99.3 116 20 110/60 96 Nasal 2.0L Cannula 06/24 1428 Nasal 2.0L Cannula 06/24 0925 120 118/62 Intake & Output 06/25 1600 06/25 0800 06/25 0000 Intake Total 240 50 600 Output Total 300 500 Balance 240 -250 100 Intake, Oral 240 50 600 Output, Urine 300 500 Patient 153 lb Weight Physical Exam General Appearance: Alert, Oriented X3, Cooperative, Mild Distress Skin: s/p melena excision, Lt. face. HEENT: Atraumatic, PERRLA, EOMI, Mucous Membr. moist/pink Neck: Supple, No JVD, No LAD Lymphatic: Cervical nl Cardiovascular: Regular Rate, Normal S1, Normal S2, systolic murmurs Lungs: Clear to Auscultation, decreased breathing sound, LLE Abdomen: Normal Bowel Sounds, Soft, No Tenderness Neurological: Normal Speech, Strength at 5/5 X4 Ext, Normal Tone, Sensation Intact Vascular: Normal Pulses, bilateral LE pitting edema 2+ Current Medications: Current Medications Sig/Jaswinder Start time Last Medication Dose Route Stop Time Status Admin Acetaminophen 650 MG Q6P PRN 06/23 1500 AC PO Albuterol Sulfate 2 PUF Q4P PRN 06/24 1445 AC INH Allopurinol 100 MG DAILY 06/24 1000 AC 06/25 PO 0901 Apixaban 2.5 MG BID 06/23 2200 AC 06/25 PO 0901 Atorvastatin Calcium 10 MG 1700 06/23 1700 AC 06/24 PO 1704 Azithromycin 500 MG DAILY 06/24 1000 AC 06/25 Dextrose/Water 250 ML IV 0903 Budesonide/ 2 PUF BID 06/23 2200 AC 06/25 Formoterol Fumarate INH 0903 Carvedilol 12.5 MG BID 06/23 2200 AC 06/25 PO 0902 Ceftriaxone Sodium 1,000 MG DAILY 06/24 1000 AC 06/25 IV 0903 Cholecalciferol 1,000 IU DAILY 06/24 1000 AC 06/25 PO 0902 Cyanocobalamin 2,000 MCG DAILY 06/24 1000 AC 06/25 PO 0901 Docusate Sodium 100 MG DAILY 06/24 1000 AC 06/25 PO 0902 Folic Acid 1 MG DAILY 06/24 1000 AC 06/25 PO 0902 Furosemide 40 MG DAILY 06/25 1000 AC 06/25 IV 0902 Furosemide 40 MG 7:30 AM, & 4:30 PM 06/23 1630 DC 06/24 IV 0927 Levothyroxine Sodium 0.025 MG DAILY AC 06/24 0700 AC 06/25 PO 0643 Morphine Sulfate 1 MG Q6-PRN PRN 06/23 1500 AC IV Omeprazole 40 MG DAILY AC 06/24 0700 AC 06/25 PO 0643 Oxycodone/ 1 TAB Q6P PRN 06/23 1500 AC 06/24 Acetaminophen PO 1704 Polyethylene Glycol 17 GM DAILY 06/24 1000 AC 06/24 PO 0926 Potassium Chloride 20 MEQ BID 06/24 1345 AC 06/25 PO 0902 Prednisone 5 MG DAILY 06/24 1000 AC 06/25 PO 0901 Pyridoxine HCl 25 MG DAILY 06/24 1000 AC 06/25 PO 0901 Last 24 Hrs of Lab/Pro Results Last 24 Hrs of Labs/Mics: Laboratory Tests 06/25/16 0620: Anion Gap 7, Estimated GFR 34 L, BUN/Creatinine Ratio 20.5, CBC w Diff NO MAN DIFF REQ, RBC 2.92 L, MCV 94.4 H, MCH 31.6 H, RDW 16.0 H, MPV 9.0, Gran % 82.4 H, Lymphocytes % 10.7 L, Monocytes % 6.0, Eosinophils % 0.5, Basophils % 0.4, Absolute Granulocytes 9.7 H, Absolute Lymphocytes 1.3, Absolute Monocytes 0.7 H, Absolute Eosinophils 0.1, Absolute Basophils 0, PUBS MCHC 33.5 06/24/16 1110: Troponin I 0.16 *H Lines/Diet/Fluids Lines: peripheral lines Assessment/Plan Assessment: 85 year-old gentleman with past medical history of CAD s/p status post 7 stents, A. fib on a liquids s/p pacemaker placement, HFrEF (ejection fraction 40-45%), TIA, gout, lung cancer s/p right lobe resection, prostate cancer, hypothyroidism , osteoarthritis, s/p melanoma resection, COPD, hypertension, hyperlipidemia presented with several days of orthopnea and 2-day history of progressive swelling of bilateral lower limbs. On presentation the patient was febrile with temperature 100.2, initial blood work showed an increasing proBNP to 4930, CXR shows consolidation and volume loss in the left lower lobe, has leukocytosis with white count of 14,100 and 87% granulocytes, with elevated troponin at 0.15. 1. Acute on chronic CHF exacerbation: Patient is on IV lasix 40mg daily. net I/O 0 in 24 hrs. Cr worsening from 1.7 to 1.9 today. EF 40-45%. Continue gentle IV diuresis 40mg daily with BEP monitoring. As he c/o worsening bilateral LE pain with edema will check bilateral LE Doppler and Rt. knee x-ray to evaluate joint effusion. follow up cardiology recommendation. 2. Sepsis secondary to community-acquired pneumonia: Patient has fever, leukocytosis with LLL lung consolidation, IV ceftriaxone/azithromycin #3, streptococcal and legionella antigens negative, blood culture results remain negative, continue TRC/nebs. 3. Elevated troponin: Likely secondary to demand ischemia, Troponin x 3 sets showing constant troponin of 0.18 then the last one decreased to 0.16 yesterday. He has 3-6 beats of V-tach on tele monitor with paced rhythm. Continue tele monitoring. 4. AFIB on eliquis s/p PM: continue coreg 12.5mg bid and apixaban 2.5 mg bid 5. COPD: Continue with Symbicort TRC nebs 6. Gout: Continue allopurinol 100 mg daily and prednisone 5 mg daily 7. Hypertension: Continue carvedilol 12.5 mg daily, check blood pressures every shift 8. Hyperlipidemia: Continue simvastatin 9. Hypothyroidism: Continue levothyroxine 25 g DVT ppx: po eliquis full code Problem List: 1. CONGESTIVE HEART FAILURE 2. Pneumonia 3. Atrial fibrillation 4. Elevated troponin Pain Ratin Pain Location: Biltaeral ant.lilly leg pain Pain Goal: Pain 4 or less Pain Plan: po tyrenol, percocet IV morphine Tomorrow's Labs & Rationales: BEP - on IV lasix, monitor Na, K, BUN/Cr DVT/Prophylaxis: pharmacological Consulting Request: Consulting Specialty: Cardiology Consulting Physician: Dr. Vidales Reason for Consult: Acute on chronic HF Discharge Plan Stable for Discharge? No MAURICIO ARRIOLA MD 06/26/16 1209: Attending MD Review Statement Attending Statement Attending MD Statement: examined this patient, discuss w/resident/PA/PATIENT TRANSPORTATION DRIVER, agreed w/resident/PA/PATIENT TRANSPORTATION DRIVER, reviewed EMR data (avail) Attending Assessment/Plan: 85M PMH CAD s/p 7 stents, CHF, A. fib (status post defibrillator and pacemaker placed 2010) on Eliquis, TIA, gout, lung cancer s/p right lobe resection, prostate cancer, hypothyroidism, osteoarthritis, melanoma status post resection, COPD, hypertension, hyperlipidemia admitted with orthopnea, dyspnea on exertion, LE swelling, and 3-5 pound weight gain. Recently seen by surgery for facial melanoma excision. EKG no acute changes, troponin 0.15, labs otherwise normal. Fluid overladed by exam. 1. Acute on chronic systolic CHF 2. Elevated troponin 3. Hypervolemia 4. Orthopnea 5. Melanoma 6. Chronic atrial fibrillation Plan - Admit to telemetry - Lasix 40mg IV daily, careful not to over-diurese, as patient has a history of this - I/O, daily weights - Cardiology consult - Trend troponin to peak - Serial EKG - Continue home medications - PT eval - DVT PPx
[2016-06-25 07:52] LABS: ABSOLUTE BASOPHIL COUNT 0 /CUMM (0.0-0.2); ABSOLUTE EOSINOPHIL COUNT 0.1 /CUMM (0.0-0.7); ABSOLUTE GRANULOCYTE CT 9.7 /CUMM (1.4-6.5); ABSOLUTE LYMPH COUNT 1.3 /CUMM (1.2-3.4); ABSOLUTE MONOCYTE COUNT 0.7 /CUMM (0.10-0.60); BASOPHIL % 0.4 % (0.0-2.0); EOSINOPHIL % 0.5 % (0-5); GRANULOCYTE % 82.4 % (42.2-75.2); HEMATOCRIT 27.5 % (42-52); MEAN CORPUSCULAR HGB 31.6 PG (27.0-31.0); MEAN CORPUSCULAR HGB CONC 33.5 G/DL (33.0-37.0); MEAN CORPUSCULAR VOLUME 94.4 FL (80.0-94.0); PLATELET COUNT 133 /CUMM (130-400); RED BLOOD CELL CT 2.92 /CUMM (4.70-6.10); WHITE BLOOD CELL COUNT 11.8 /CUMM (4.8-10.8)
[2016-06-25 08:27] VITALS: BP 115/54
--- NOTE | 2016-06-25 13:07 | PN- Cardiology ---
Subjective Subjective: Stable with no cardiac symptoms. Continues to complain of LE discomfort and swelling. Objective Vital Signs and I&Os Vital Signs Date Time Temp Pulse Resp B/P Pulse O2 O2 Flow FiO2 Ox Delivery Rate 06/25 0827 98.5 98 20 115/54 94 Nasal 2.0L Cannula 06/25 0741 95 Nasal 2.0L Cannula 06/25 0000 Nasal 2.0L Cannula 06/24 2327 98.7 117 20 112/60 98 Nasal Cannula 06/24 2214 118 116/54 06/24 1600 Nasal 2.0L Cannula 06/24 1549 99.3 116 20 110/60 96 Nasal 2.0L Cannula 06/24 1428 Nasal 2.0L Cannula Intake & Output 06/25 1600 06/25 0800 06/25 0000 06/24 1600 06/24 0800 06/24 0000 Intake Total 240 50 600 600 250 600 Output Total 300 500 539 896 8576 Balance 240 -250 100 -50 -50 -575 Intake, IV 10 Intake, Oral 240 50 600 600 240 600 Output, Urine 300 500 572 105 2813 Patient 153 lb 189 lb Weight Current Medications: Current Medications Sig/Jaswinder Start time Last Medication Dose Route Stop Time Status Admin Acetaminophen 650 MG Q6P PRN 06/23 1500 AC PO Albuterol Sulfate 2 PUF Q4P PRN 06/24 1445 AC INH Allopurinol 100 MG DAILY 06/24 1000 AC 06/25 PO 0901 Apixaban 2.5 MG BID 06/23 2200 AC 06/25 PO 0901 Atorvastatin Calcium 10 MG 1700 06/23 1700 AC 06/24 PO 1704 Azithromycin 500 MG DAILY 06/24 1000 AC 06/25 Dextrose/Water 250 ML IV 0903 Budesonide/ 2 PUF BID 06/23 2200 AC 06/25 Formoterol Fumarate INH 0903 Carvedilol 12.5 MG BID 06/23 2200 AC 06/25 PO 0902 Ceftriaxone Sodium 1,000 MG DAILY 06/24 1000 AC 06/25 IV 0903 Cholecalciferol 1,000 IU DAILY 06/24 1000 AC 06/25 PO 0902 Cyanocobalamin 2,000 MCG DAILY 06/24 1000 AC 06/25 PO 0901 Docusate Sodium 100 MG DAILY 06/24 1000 AC 06/25 PO 0902 Folic Acid 1 MG DAILY 06/24 1000 AC 06/25 PO 0902 Furosemide 40 MG DAILY 06/25 1000 AC 06/25 IV 0902 Levothyroxine Sodium 0.025 MG DAILY AC 06/24 0700 AC 06/25 PO 0643 Morphine Sulfate 1 MG Q6-PRN PRN 06/23 1500 AC IV Omeprazole 40 MG DAILY AC 06/24 0700 AC 06/25 PO 0643 Oxycodone/ 1 TAB Q6P PRN 06/23 1500 AC 06/24 Acetaminophen PO 1704 Patient Medication 1 ED .[facility] 06/25 1138 [facility] Teaching ED 06/25 1139 Polyethylene Glycol 17 GM DAILY 06/24 1000 AC 06/24 PO 0926 Potassium Chloride 20 MEQ BID 06/24 1345 AC 06/25 PO 0902 Prednisone 5 MG DAILY 06/24 1000 AC 06/25 PO 0901 Pyridoxine HCl 25 MG DAILY 06/24 1000 AC 06/25 PO 0901 Results Last 48 Hrs of Labs/Mics: Laboratory Tests 06/25/16 0620: Anion Gap 7, Estimated GFR 34 L, BUN/Creatinine Ratio 20.5, CBC w Diff NO MAN DIFF REQ, RBC 2.92 L, MCV 94.4 H, MCH 31.6 H, RDW 16.0 H, MPV 9.0, Gran % 82.4 H, Lymphocytes % 10.7 L, Monocytes % 6.0, Eosinophils % 0.5, Basophils % 0.4, Absolute Granulocytes 9.7 H, Absolute Lymphocytes 1.3, Absolute Monocytes 0.7 H, Absolute Eosinophils 0.1, Absolute Basophils 0, PUBS MCHC 33.5 06/24/16 1110: Troponin I 0.16 *H 06/24/16 0435: Anion Gap 6, Estimated GFR 39 L, BUN/Creatinine Ratio 18.8, Troponin I 0.18 *H, CBC w Diff NO MAN DIFF REQ, RBC 3.11 L, MCV 93.4, MCH 31.6 H, RDW 16.1 H, MPV 8.8, Gran % 83.2 H, Lymphocytes % 7.9 L, Monocytes % 8.2, Eosinophils % 0.4, Basophils % 0.3, Absolute Granulocytes 11.1 H, Absolute Lymphocytes 1.0 L, Absolute Monocytes 1.1 H, Absolute Eosinophils 0, Absolute Basophils 0, PUBS MCHC 33.8 06/23/16 2200: Troponin I 0.18 *H 06/23/16 1630: Troponin I 0.18 *H Assessment/Plan Assessment/Plan Assessment: 1. Worsening lower extremity edema with bilateral discomfort, greater on the left side 2. Abnormal chest x-ray 3. History of known coronary artery disease 4. History of hypertension 5. Chronic renal insufficiency 6. Minimally elevated troponin Recommendations: -Continue to monitor on telemetry -Continue IV Lasix diuresis with close monitoring of intakes, outputs, and daily weights -No need to repeat echocardiogram at the present time -Out of bed as tolerated -Maintain lower extremity elevation as much as possible -In view of the patient's persistent LE edema and discomfort / tenderness, as well as his history of known cancer and recent hospitalization, check bilateral LE venous doppler. Continue telemetry? Yes
[2016-06-25 16:08] VITALS: BP 106/54
--- NOTE | 2016-06-25 16:44 | RADIOLOGY REPORT ---
EXAMINATION: XR KNEE, RIGHT CLINICAL INFORMATION: Right knee swelling and pain. COMPARISON: 05/20/2016 TECHNIQUE: Four views of the right knee. FINDINGS: No acute fracture or subluxation. There is moderate to severe narrowing at the medial compartment with near [id number] appearance. Marginal osteophytes are present in all compartments. There is a small joint effusion. Diffuse soft tissue edema. IMPRESSION: Small joint effusion. Tricompartmental degenerative changes, moderate to severe at the medial compartment.
--- NOTE | 2016-06-25 17:21 | ULTRASOUND REPORT ---
EXAMINATION: US TRIPLEX LOWER EXTREMITY, BILATERAL CLINICAL INFORMATION: Bilateral lower extremity edema. Swelling. COMPARISON: None TECHNIQUE: Color-flow triplex imaging with spectral analysis and compression Doppler were performed on the bilateral lower extremities. FINDINGS: Respiratory variation, normal compression and augmented flow are noted throughout the bilateral lower extremities. The visualized common femoral vein, superficial femoral vein, profunda femoral vein, popliteal vein and midcalf peroneal and posterior tibial venous segments show no evidence of deep venous thrombosis. There is no significant Lau's cyst. IMPRESSION: Normal triplex scan without evidence of deep venous thrombosis involving the bilateral lower extremities.
[2016-06-25 23:29] VITALS: BP 98/50
--- NOTE | 2016-06-26 07:38 | PN- Housestaff ---
GARY CARRERA,IRENEFANGGEO 06/26/16 0737: Subjective Follow-up For: Acute on chronic HF Pneumonia Complaints: chronic LE edema Tele-Events Since Last Visit: tachycardic, paced-rhythm Subjective: He has orthpnea with constant bilateral LE edemea He c/o less ant. lilly pain. Urinary / bowel movement is okay. Review of Systems Constitutional: Reports: malaise, weakness. Denies: chills, fever. EENTM: Reports: no symptoms. Cardiovascular: Reports: orthopena, peripheral edema. Denies: chest pain, palpitations, syncope. Respiratory: Reports: cough, short of breath. Denies: sputum production, wheezing. Gastrointestinal: Denies: abdominal pain, diarrhea, nausea, vomiting. Genitourinary: Reports: no symptoms. Musculoskeletal: Reports: muscle pain. Skin: Reports: no symptoms. Neurological/Psychological: Reports: no symptoms. Hematologic/Endocrine: Reports: no symptoms. Immunologic/Allergic: Reports: no symptoms. Objective Last 24 Hrs of Vital Signs/I&O Vital Signs Date Time Temp Pulse Resp B/P Pulse O2 O2 Flow FiO2 Ox Delivery Rate 06/26 0000 96 Nasal Cannula 06/25 2329 98.0 115 18 98/50 92 Room Air 06/25 2101 93 Room Air 06/25 2026 116 106/50 06/25 1608 98.2 101 18 106/54 94 06/25 0827 98.5 98 20 115/54 94 Nasal 2.0L Cannula 06/25 0741 95 Nasal 2.0L Cannula Intake & Output 06/26 0800 06/26 0000 06/25 1600 Intake Total 440 730 Output Total 250 175 300 Balance -250 265 430 Intake, IV 250 Intake, Oral 440 480 Number 0 Bowel Movements Output, Urine 250 175 300 Patient 193 lb Weight Physical Exam General Appearance: Alert, Oriented X3, Cooperative, No Acute Distress Skin: bilateral LE edema HEENT: Atraumatic, PERRLA, EOMI, Mucous Membr. moist/pink Neck: Supple, No JVD, No LAD Lymphatic: Cervical nl Cardiovascular: Normal S1, Normal S2, tachycardic, systolic murmurs Lungs: Clear to Auscultation, Normal Air Movement Abdomen: Normal Bowel Sounds, Soft, No Tenderness Neurological: Normal Speech, Normal Tone, Cranial Nerves 3-12 NL, generalized weakness bilateral legs Extremities: chronic LE edema pitting 2+ Vascular: Normal Pulses, Pulses Symmetrical Current Medications: Current Medications Sig/Jaswinder Start time Last Medication Dose Route Stop Time Status Admin Acetaminophen 650 MG Q6P PRN 06/23 1500 AC PO Albuterol Sulfate 2 PUF Q4P PRN 06/24 1445 AC INH Allopurinol 100 MG DAILY 06/24 1000 AC 06/26 PO 0947 Apixaban 2.5 MG BID 06/23 2200 AC 06/26 PO 0940 Atorvastatin Calcium 10 MG 1700 06/23 1700 AC 06/25 PO 1721 Azithromycin 500 MG DAILY 06/24 1000 AC 06/26 Dextrose/Water 250 ML IV 1216 Budesonide/ 2 PUF BID 06/23 2200 AC 06/26 Formoterol Fumarate INH 0946 Carvedilol 12.5 MG BID 06/23 2200 AC 06/26 PO 0940 Ceftriaxone Sodium 1,000 MG DAILY 06/24 1000 AC 06/26 IV 0936 Cholecalciferol 1,000 IU DAILY 06/24 1000 AC 06/26 PO 0947 Cyanocobalamin 2,000 MCG DAILY 06/24 1000 AC 06/26 PO 0940 Docusate Sodium 100 MG DAILY 06/24 1000 AC 06/26 PO 0939 Folic Acid 1 MG DAILY 06/24 1000 AC 06/26 PO 0940 Furosemide 40 MG BID 06/260 AC IV Furosemide 40 MG DAILY 06/25 1000 DC 06/26 IV 0934 Levothyroxine Sodium 0.025 MG DAILY AC 06/24 0700 AC 06/26 PO 0656 Morphine Sulfate 1 MG Q6-PRN PRN 06/23 1500 AC IV Omeprazole 40 MG DAILY AC 06/24 0700 AC 06/26 PO 0656 Ondansetron HCl 4 MG Q6P PRN 06/26 1430 AC 06/26 IV 1437 Oxycodone/ 1 TAB Q6P PRN 06/23 1500 AC 06/25 Acetaminophen PO 2031 Polyethylene Glycol 17 GM DAILY 06/24 1000 AC 06/26 PO 0938 Potassium Chloride 20 MEQ BID 06/24 1345 AC 06/26 PO 0950 Prednisone 5 MG DAILY 06/24 1000 AC 06/26 PO 0940 Pyridoxine HCl 25 MG DAILY 06/24 1000 AC 06/26 PO 0945 Last 24 Hrs of Lab/Pro Results Last 24 Hrs of Labs/Mics: Laboratory Tests 06/26/16 0610: Anion Gap 8, Estimated GFR 36 L, BUN/Creatinine Ratio 22.2 Microbiology 06/26 1438 NASOPHARYN: Influenza Virus A & B Rapid Smear - ORD Lines/Diet/Fluids Lines: peripheral lines Assessment/Plan Assessment: 85 year-old gentleman with past medical history of CAD s/p status post 7 stents, A. fib on a liquids s/p pacemaker placement, HFrEF (ejection fraction 40-45%), TIA, gout, lung cancer s/p right lobe resection, prostate cancer, hypothyroidism , osteoarthritis, s/p melanoma resection, COPD, hypertension, hyperlipidemia presented with several days of orthopnea and 2-day history of progressive swelling of bilateral lower limbs. On presentation the patient was febrile with temperature 100.2, initial blood work showed an increasing proBNP to 4930, CXR shows consolidation and volume loss in the left lower lobe, has leukocytosis with white count of 14,100 and 87% granulocytes, with elevated troponin at 0.15. 1. Acute on chronic CHF exacerbation: His I/O is +445 in 24 hrs, according to cardiology recommendation, IV lasix 40mg was increased to BID. Cr change minimal from 1.9 to 1.8 today. EF 40-45%. Continue BEP monitoring in AM. Doppler was negative for DVT 1DA. 2. Sepsis secondary to community-acquired pneumonia: Patient has fever, leukocytosis with LLL lung consolidation, IV ceftriaxone/azithromycin #4, streptococcal and legionella antigens negative, blood culture results remain negative, continue TRC/nebs. 3. Elevated troponin: Likely secondary to demand ischemia, Troponin x 3 sets showing constant troponin of 0.18 then the last one decreased to 0.16. Continue tele monitoring. 4. AFIB on eliquis s/p PM: continue coreg 12.5mg bid and apixaban 2.5 mg bid 5. COPD: Continue with Symbicort TRC nebs 6. Gout/OA: Continue allopurinol 100 mg daily and prednisone 5 mg daily, Rt. knee x-ray shows small pleural effusion, f/u with Dr. Duarte as outpt. 7. Hypertension: Continue carvedilol 12.5 mg daily 8. Hyperlipidemia: Continue simvastatin 9. Hypothyroidism: Continue levothyroxine 25 g DVT ppx: po eliquis full code Problem List: 1. CONGESTIVE HEART FAILURE 2. Pneumonia Pain Ratin Pain Location: bilateral LE ant. lilly Pain Goal: Pain 4 or less Pain Plan: tyrenol, percocet 1 tab q6p Tomorrow's Labs & Rationales: CBC: elevated WBC BEP: IV diuresis DVT/Prophylaxis: pharmacological Consulting Request: Consulting Specialty: Cardiology Consulting Physician: Dr. Vidales Reason for Consult: Acute on chronic HF Discharge Plan Stable for Discharge? No MAURICIO ARRIOLA MD 06/26/16 1215: Attending MD Review Statement Attending Statement Attending MD Statement: examined this patient, discuss w/resident/PA/CORKING MACHINE OPERATOR, agreed w/resident/PA/CORKING MACHINE OPERATOR, reviewed EMR data (avail) Attending Assessment/Plan: 85M PMH CAD s/p 7 stents, CHF, A. fib (status post defibrillator and pacemaker placed 2010) on Eliquis, TIA, gout, lung cancer s/p right lobe resection, prostate cancer, hypothyroidism, osteoarthritis, melanoma status post resection, COPD, hypertension, hyperlipidemia admitted with orthopnea, dyspnea on exertion, LE swelling, and 3-5 pound weight gain. Recently seen by surgery for facial melanoma excision. EKG no acute changes, troponin 0.15, labs otherwise normal. Fluid overladed by exam. 1. Acute on chronic systolic CHF 2. Elevated troponin 3. Hypervolemia 4. Orthopnea 5. Melanoma 6. Chronic atrial fibrillation Plan - Admit to telemetry - Increase Lasix to 40mg IV BID per cardiology - I/O, daily weights - Cardiology consult - Continue home medications - PT eval - DVT PPx
[2016-06-26 08:32] VITALS: BP 127/63
--- NOTE | 2016-06-26 11:55 | PN- Cardiology ---
Subjective Subjective: The patient is doing well but continues to have lower extremity edema despite gentle diuresis and leg elevation. His diuresis has not been optimal as of this point. Renal function status stable Objective Vital Signs and I&Os Vital Signs Date Time Temp Pulse Resp B/P Pulse O2 O2 Flow FiO2 Ox Delivery Rate 06/26 1130 Room Air Room Air 06/26 0940 118 127/63 06/26 0832 97.7 118 18 127/63 98 Room Air 06/26 0800 94 Room Air Room Air 06/26 0000 96 Nasal Cannula 06/25 2329 98.0 115 18 98/50 92 Room Air 06/25 2101 93 Room Air 06/25 2025 116 106/50 06/25 1608 98.2 101 18 106/54 94 Intake & Output 06/26 1600 06/26 0800 06/26 0000 06/25 1600 06/25 0800 06/25 0000 Intake Total 200 440 730 50 600 Output Total 650 175 300 300 500 Balance -450 265 430 -250 100 Intake, IV 250 Intake, Oral 200 440 480 50 600 Number 0 Bowel Movements Output, Urine 650 175 300 300 500 Patient 193 lb 153 lb Weight Current Medications: Current Medications Sig/Jaswinder Start time Last Medication Dose Route Stop Time Status Admin Acetaminophen 650 MG Q6P PRN 06/23 1500 AC PO Albuterol Sulfate 2 PUF Q4P PRN 06/24 1445 AC INH Allopurinol 100 MG DAILY 06/24 1000 AC 06/26 PO 0947 Apixaban 2.5 MG BID 06/230 AC 06/26 PO 0940 Atorvastatin Calcium 10 MG 1700 06/23 1700 AC 06/25 PO 1721 Azithromycin 500 MG DAILY 06/24 1000 AC 06/25 Dextrose/Water 250 ML IV 0903 Budesonide/ 2 PUF BID 06/23 2200 AC 06/26 Formoterol Fumarate INH 0946 Carvedilol 12.5 MG BID 06/23 2200 AC 06/26 PO 0940 Ceftriaxone Sodium 1,000 MG DAILY 06/24 1000 AC 06/26 IV 0936 Cholecalciferol 1,000 IU DAILY 06/24 1000 AC 06/26 PO 0947 Cyanocobalamin 2,000 MCG DAILY 06/24 1000 AC 06/26 PO 0940 Docusate Sodium 100 MG DAILY 06/24 1000 AC 06/26 PO 0939 Folic Acid 1 MG DAILY 06/24 1000 AC 06/26 PO 0940 Furosemide 40 MG DAILY 06/25 1000 AC 06/26 IV 0934 Levothyroxine Sodium 0.025 MG DAILY AC 06/24 0700 AC 06/26 PO 0656 Morphine Sulfate 1 MG Q6-PRN PRN 06/23 1500 AC IV Omeprazole 40 MG DAILY AC 06/24 0700 AC 06/26 PO 0656 Oxycodone/ 1 TAB Q6P PRN 06/23 1500 AC 06/25 Acetaminophen PO 203 Polyethylene Glycol 17 GM DAILY 06/24 1000 AC 06/26 PO 0938 Potassium Chloride 20 MEQ BID 06/24 1345 AC 06/26 PO 0950 Prednisone 5 MG DAILY 06/24 1000 AC 06/26 PO 0940 Pyridoxine HCl 25 MG DAILY 06/24 1000 AC 06/26 PO 0945 Results Last 48 Hrs of Labs/Mics: Laboratory Tests 06/26/16 0610: Anion Gap 8, Estimated GFR 36 L, BUN/Creatinine Ratio 22.2 06/25/16 0620: Anion Gap 7, Estimated GFR 34 L, BUN/Creatinine Ratio 20.5, CBC w Diff NO MAN DIFF REQ, RBC 2.92 L, MCV 94.4 H, MCH 31.6 H, RDW 16.0 H, MPV 9.0, Gran % 82.4 H, Lymphocytes % 10.7 L, Monocytes % 6.0, Eosinophils % 0.5, Basophils % 0.4, Absolute Granulocytes 9.7 H, Absolute Lymphocytes 1.3, Absolute Monocytes 0.7 H, Absolute Eosinophils 0.1, Absolute Basophils 0, PUBS MCHC 33.5 Assessment/Plan Assessment/Plan Assessment: 1. Worsening lower extremity edema with bilateral discomfort, greater on the left side 2. Abnormal chest x-ray 3. History of known coronary artery disease 4. History of hypertension 5. Chronic renal insufficiency 6. Minimally elevated troponin Recommendations: -Continue to monitor on telemetry -Continue IV Lasix diuresis with close monitoring of intakes, outputs, and daily weights. Increase Lasix dose to twice daily -Closely monitor creatinine with follow-up levels tomorrow -No need to repeat echocardiogram at the present time -Out of bed as tolerated -Maintain lower extremity elevation as much as possible -Bilateral lower extremity venous Doppler ultrasound noted to be negative -Continue other medications at present regimen Continue telemetry? Yes
--- NOTE | 2016-06-26 15:46 | Patient Discharge Instructions ---
Discharge Instructions General Discharge Information You were seen/treated for: Acute on chronic systolic heart failure Community acquired pneumonia Elevated troponin Special Instructions: Please follow up with a primary doctor within 1 week after discharge Please follow up with Dr. Vidales regarding CHF management in 1 week Please follow up with Dr. Dowd regarding MADONNA on CKD in 1 -2 weeks Diet Continue normal diet: Yes Recommended Diet: Heart Healthy Activity Full Activity/No Limits: Yes Activity Self Limited: No Activity Limited to: Walking with Assistance Additional ACTIVITY Info: Increase activity as tolerated Please conitnue physical therapy Please elevated legs while resting for leg edema Acute Coronary Syndrome Inclusion Criteria At DC or during hospital stay patient has or had the following: ACS DIAGNOSIS No Discharge Core Measures Meds if any: Prescribed or Continued at Discharge Meds if any: NOT Prescribed or Continued at Discharge Congestive Heart Failure Inclusion Criteria At DC or during hospital stay patient has or had the following: CHF DIAGNOSIS Yes Discharge Core Measures Meds if any: Prescribed or Continued at Discharge JAM/ARB for EF <40% Yes Meds if any: NOT Prescribed or Continued at Discharge Cerebrovascular accident Inclusion Criteria At DC or during hospital stay patient has or had the following: CVA/TIA Diagnosis No Discharge Core Measures Meds if any: Prescribed or Continued at Discharge Meds if any: NOT Prescribed or Continued at Discharge Venous thromboembolism Inclusion Criteria VTE Diagnosis No VTE Type NONE VTE Confirmed by (Test) NONE Discharge Core Measures - Per Current guidelines, there needs to be overlap - treatment for the first 5 days of Warfarin therapy. - If discharged on Warfarin prior to 5 days of - overlap therapy, the patient will need to be - assessed for post discharge needs including - *Post discharge parental anticoagulation - *Warfarin and/or parental anticoagulation education - *Follow up date to check INR post discharge At least 5 days overlap therapy as Inpatient No Meds if any: Prescribed or Continued at Discharge Note: Overlap Therapy is Warfarin and Anticoagulant Meds if any: NOT Prescribed or Continued at Discharge
[2016-06-26] MEDS ORDERED: AUGMENTIN 875-1 EACH PO (15:47)
[2016-06-26 16:26] VITALS: BP 119/63
--- NOTE | 2016-06-26 22:38 | Discharge Summary ---
Visit Information Visit Dates Admission Date: 06/23/16 Discharge Date: 06/30/16 Hospital Course Course Attending Physician: MAURICIO ARRIOLA MD Primary Care Physician: ERINN CARRERA,DOUGLAS Bustamante Other Care Providers: Cardiology: Dr. Vidales Nephrology: Dr. Dowd Consulting Request: Consulting Specialty: Cardiology Consulting Physician: Dr. Vidales Reason for Consult: Acute on chronic HF Hospital Course: 85 year-old gentleman with past medical history of CAD s/p status post 7 stents, A. fib on eliquis s/p pacemaker placement, HFrEF (ejection fraction 40-45%), TIA , gout, lung cancer s/p right lobe resection, prostate cancer, hypothyroidism, osteoarthritis, s/p melanoma resection, COPD, hypertension, hyperlipidemia presented with several days of orthopnea and 2-day history of progressive swelling of bilateral lower limbs. Recently he was seen by general surgery for facial melanoma excision. On presentation, the patient was febrile with temperature 100.2, initial blood work showed an increasing proBNP to 4930, CXR shows consolidation and volume loss in the left lower lobe, has leukocytosis with white count of 14,100 and 87% granulocytes, with elevated troponin at 0.15. 1. Acute on chronic systolic CHF: Cardiology consult was obtained from Dr. Vidales. As he had history of acute kidney injury with IV diuresis, IV lasix was given gently following up BEP. IV lasix 40mg daily was increased to BID. Then patient started on po lasix 40mg daily from 06/28 as Cr was increased up to 2.1. Doppler was negative for DVT. Later IV lasix 40mg bid was given as he was still in positive fluid balance. Patient will be discharged with po lasix 40mg bid. Please follow up with a water quality specialist/nephrology for lasix dosing and BEP monitoring. 2. Sepsis secondary to community-acquired pneumonia: Patient has fever, leukocytosis with LLL lung consolidation. He was treated with IV ceftriaxone/ azithromycin for 5 days, and he'll be discharged with po augmentin. Urinary streptococcal and legionella antigens were negative. Blood cultures remain negative. Nasal cannula oxygen support was tapered from 2L to RA now. 3. Elevated troponin: Likely secondary to demand ischemia, Troponin x 3 sets showing constant troponin of 0.18 then the last one decreased to 0.16. Patient remained on tele monitoring. He had few episodes of V-tach with tachycardia. Patient continued on po coreg 12.5mg bid. Please follow up with a water quality specialist as outpatient. 4. A.fib s/p PM on eliquis: We continued coreg 12.5mg bid and apixaban 2.5 mg bid 5. COPD: We continued Symbicort/TRC/nebs 6. Gout/OA: Stable, we continued allopurinol 100 mg daily and prednisone 5 mg daily. Rt. knee x-ray showed small pleural effusion. Please follow up with Dr. Duarte as outpt for possible drainage. 7. Hypertension: We continue carvedilol 12.5 mg daily 8. Hyperlipidemia: We continued simvastatin. 9. Hypothyroidism: We continued levothyroxine 25 g DVT ppx: po eliquis full code Allergies: Coded Allergies: No Known Allergies (06/23/16) Disposition Summary Disposition Principal Diagnosis: Acute on chronic systolic heart failure Community acquired pneumonia Elevated troponin likely demand ischemia Additional Diagnosis: A.fib s/p PM on eliquis Chronic bilateral LE edema Hx of CAD HTN HLD Chronic kidney disease stage 3 Lung cancer s/p right lobe resection, Hypothyroidism Osteoarthritis Gout Discharge Disposition: [facility] Discharge Instructions General Discharge Information Code Status: Full Code Patient's Diet: Heart healthy Patient's Activity: Increase as tolerated, continue physical therapy Follow-Up Instructions/Appts: Please follow up with a primary doctor within 1 week after discharge Please follow up with Dr. Vidales regarding CHF management in 1 week Please follow up with Dr. Dowd regarding MADONNA on CKD management in 1-2 weeks Medications at Discharge Discharge Medications: Stop taking the following medications: Furosemide (Lasix) 40 MG TABLET ORAL Every Morning Continue taking these medications: Simvastatin (Zocor*) 20 MG TABLET 1 Tablet ORAL Every night Comments: PER PT Apixaban (Eliquis) 2.5 MG TABLET 1 Tablet ORAL TWICE DAILY Comments: PER PT MED LIST Esomeprazole (Nexium) 40 MG CAPSULE. 1 Capsule ORAL TWICE DAILY Qty = 30 Comments: DOCUMENTED "40MG BID" PER CMR DURING PRE-SX INTERVIEW PER PT MED LIST NOT GIVEN Cyanocobalamin/FA/Pyridoxine (Folbic Tablet) 1 EACH TABLET 1 Tablet ORAL DAILY Qty = 30 Comments: PER PT MED LIST NOT GIVEN Budesonide/Formoterol Fumarate (Symbicort 160-4.5 Mcg Inhaler) 10.2 GM HFA.AER.AD 2 Puff Inhale through mouth 2 x Daily as needed as needed for BREATHING Qty = 10 Comments: Last Taken:05/09/15 Time:9AM Cholecalciferol (Vitamin D3) (Vitamin D3) 1,000 UNIT CAPSULE 1 Capsule ORAL TWICE DAILY Comments: PER PT MED LIST Polyethylene Glycol 3350 (Clearlax) 17 GRAM/DOSE POWDER 0.5 Capsule ORAL DAILY Comments: NOT TAKEN Docusate Sodium (Colace) 100 MG CAPSULE 1 Capsule ORAL DAILY Comments: DOCUMENTED PER CMR DURING PRE-SX INTERVIEW Carvedilol (Coreg) 12.5 MG TABLET 1 Tablet ORAL TWICE DAILY Days = 30 Levothyroxine Sodium (Levothyroxine Sodium) 25 MCG TABLET 1 Tablet ORAL DAILY BEFORE BREAKFAST Qty = 60 Allopurinol (Allopurinol) 100 MG TABLET 1 Tablet ORAL DAILY Qty = 60 Comments: Last Taken: 06/19/16 Time: 9:00 AM Oxycodone HCl/Acetaminophen (Percocet 5-325 MG Tablet) 5 MG-325 MG TABLET 1-2 Tablet ORAL EVERY 4-6 HOURS as needed for PAIN Qty = 36 Prednisone (Prednisone) 5 MG TABLET 1 Tablet ORAL Every Morning Comments: PER PT MD STOPPED BID Start taking the following new medications: Acetaminophen (Tylenol) 325 MG TABLET 650 Milligram ORAL EVERY SIX HOURS NEEDED as needed for PAIN SCALE 1-3 ( MILD) Days = 30 No Refills Amoxicillin/Potassium Clav (Augmentin 875-125 Tablet) 875 MG-125 MG TABLET 1 Tablet ORAL TWICE DAILY Qty = 3 No Refills Instructions: 06/29-06/30 (2 day) Furosemide (Lasix) 40 MG TABLET 1 Tablet ORAL TWICE DAILY Qty = 60 No Refills Copies To: FLAKO CARRERA,MAURICIO; ERINN CARRERA,DOUGLAS Bustamante; CIRILO CARRERA,PATRICIA Rollins; BRICE CARRERA,Herberth FU
[2016-06-26 23:25] VITALS: BP 100/58
--- NOTE | 2016-06-27 07:28 | PN- Housestaff ---
See Addendum Subjective Follow-up For: Will be ordered a CBC and she refuses above the Subjective: doing better.Remains without any chest pain still has persistent shortness of breath and intermittemnt cough Review of Systems Constitutional: Reports: see HPI. Objective Last 24 Hrs of Vital Signs/I&O Vital Signs Date Time Temp Pulse Resp B/P Pulse O2 O2 Flow FiO2 Ox Delivery Rate 06/27 0000 Nasal 2.0L Cannula 06/26 2325 98.6 110 18 100/58 96 Nasal 2.0L Cannula 06/26 2102 117 06/26 1643 94 Room Air Room Air 06/26 1626 99.2 112 17 119/63 91 Room Air 06/26 1130 Room Air Room Air 06/26 0940 118 127/63 06/26 0832 97.7 118 18 127/63 98 Room Air 06/26 0800 94 Room Air Room Air Intake & Output 06/27 0800 06/27 0000 06/26 1600 Intake Total 130 414 850 Output Total 500 500 800 Balance -370 -86 50 Intake, IV 10 14 250 Intake, Oral 120 400 600 Number 1 Bowel Movements Output, Urine 500 500 800 Patient 193 lb Weight Physical Exam General Appearance: Alert, Oriented X3 Skin: No Rashes, No Breakdown HEENT: Atraumatic, PERRLA Cardiovascular: Normal S1, Normal S2 Lungs: b/l basal crackles Abdomen: Normal Bowel Sounds, Soft, No Tenderness Assessment/Plan Assessment: 85 year-old gentleman with past medical history of CAD s/p status post 7 stents, A. fib on a liquids s/p pacemaker placement, HFrEF (ejection fraction 40-45%), TIA, gout, lung cancer s/p right lobe resection, prostate cancer, hypothyroidism , osteoarthritis, s/p melanoma resection, COPD, hypertension, hyperlipidemia presented with several days of orthopnea and 2-day history of progressive swelling of bilateral lower limbs. On presentation the patient was febrile with temperature 100.2, initial blood work showed an increasing proBNP to 4930, CXR shows consolidation and volume loss in the left lower lobe, has leukocytosis with white count of 14,100 and 87% granulocytes, with elevated troponin at 0.15. 1. Acute on chronic CHF exacerbation: C/w IV lasix BID todas as well and consoder changing to IV lasix daily from am 2. Sepsis secondary to community-acquired pneumonia: Patient has fever, leukocytosis with LLL lung consolidation, IV ceftriaxone/azithromycin #5, streptococcal and legionella antigens negative, blood culture results remain negative, continue TRC/nebs. Can switch to PO AUGMNETIN and complete for 7 days 3. Elevated troponin: Likely secondary to demand ischemia, Troponin x 3 sets showing constant troponin of 0.18 then the last one decreased to 0.16. Continue tele monitoring. 4. AFIB on eliquis s/p PM: continue coreg 12.5mg bid and apixaban 2.5 mg bid 5. COPD: Continue with Symbicort TRC nebs 6. Gout/OA: Continue allopurinol 100 mg daily and prednisone 5 mg daily, Rt. knee x-ray shows small pleural effusion, f/u with Dr. Duarte as outpt. 7. Hypertension: Continue carvedilol 12.5 mg daily 8. Hyperlipidemia: Continue simvastatin 9. Hypothyroidism: Continue levothyroxine 25 g DVT ppx: po eliquis full code Problem List: 1. ST segment changes on electrocardiogram 2. CHF (congestive heart failure) 3. Pneumonia Pain Ratin Pain Location: none Pain Goal: Remain pain free Pain Plan: po tylenol as needd Tomorrow's Labs & Rationales: BEP Consulting Request: Consulting Specialty: Cardiology Consulting Physician: Dr. Vidales Reason for Consult: Acute on chronic HF
[2016-06-27 07:51] VITALS: BP 100/60
[2016-06-27 08:02] LABS: ABSOLUTE BASOPHIL COUNT 0 /CUMM (0.0-0.2); ABSOLUTE EOSINOPHIL COUNT 0.1 /CUMM (0.0-0.7); ABSOLUTE GRANULOCYTE CT 10.5 /CUMM (1.4-6.5); ABSOLUTE LYMPH COUNT 1.2 /CUMM (1.2-3.4); ABSOLUTE MONOCYTE COUNT 0.5 /CUMM (0.10-0.60); BASOPHIL % 0.3 % (0.0-2.0); EOSINOPHIL % 0.5 % (0-5); GRANULOCYTE % 85.2 % (42.2-75.2); HEMATOCRIT 28.8 % (42-52); MEAN CORPUSCULAR HGB 31.5 PG (27.0-31.0); MEAN CORPUSCULAR HGB CONC 33.5 G/DL (33.0-37.0); MEAN PLATELET VOLUME 8.8 FL (7.4-10.4); RED BLOOD CELL CT 3.06 /CUMM (4.70-6.10); WHITE BLOOD CELL COUNT 12.3 /CUMM (4.8-10.8)
[2016-06-27 08:20] LABS: PLATELET COUNT 217 /CUMM (130-400)
[2016-06-27 15:43] VITALS: BP 118/60
--- NOTE | 2016-06-27 21:32 | PN- Cardiology ---
Subjective Subjective: No complaints and feels as though his edema has improved. Denies any chest discomfort, palpitations, shortness of breath, etc. Objective Vital Signs and I&Os Vital Signs Date Time Temp Pulse Resp B/P Pulse O2 O2 Flow FiO2 Ox Delivery Rate 06/27 2126 115 06/27 1543 97.3 116 18 118/60 98 Nasal 2.0L Cannula 06/27 0908 97.5 119 100/60 06/27 0800 Nasal 2.0L Cannula 06/27 0751 97.5 119 18 100/60 95 Nasal 2.0L Cannula 06/27 0000 Nasal 2.0L Cannula 06/26 2325 98.6 110 18 100/58 96 Nasal 2.0L Cannula Intake & Output 06/27 1600 06/27 0800 06/27 0000 06/26 0000 Intake Total 644 130 414 850 200 440 Output Total 450 500 500 800 650 175 Balance 194 -370 -86 50 -450 265 Intake, IV 284 10 14 250 Intake, Oral 360 120 400 600 200 440 Number 1 1 0 Bowel Movements Output, Urine 450 500 500 800 650 175 Patient 193 lb 193 lb 193 lb Weight Physical Exam: Well-developed, well-nourished elderly male in no acute distress. Vital signs: See above. Lungs: Clear to auscultation bilaterally. Heart: S1, S2 with grade 1-2/6 systolic murmur. Extremities: 1+ edema. Current Medications: Current Medications Sig/Jaswinder Start time Last Medication Dose Route Stop Time Status Admin Acetaminophen 650 MG Q6P PRN 06/23 1500 AC PO Albuterol Sulfate 2 PUF Q4P PRN 06/24 1445 AC INH Allopurinol 100 MG DAILY 06/24 1000 AC 06/27 PO 0908 Apixaban 2.5 MG BID 06/23 2199 AC 06/27 PO 212 Atorvastatin Calcium 10 MG 1700 06/23 1700 AC 06/27 PO 1623 Azithromycin 500 MG DAILY 06/24 1000 AC 06/27 Dextrose/Water 250 ML IV 0916 Budesonide/ 2 PUF BID 06/23 2199 AC 06/27 Formoterol Fumarate INH 7 Carvedilol 12.5 MG BID 06/23 2199 AC 06/27 PO 212 Ceftriaxone Sodium 1,000 MG DAILY 06/24 1000 AC 06/27 IV 0908 Cholecalciferol 1,000 IU DAILY 06/24 1000 AC 06/27 PO 0908 Cyanocobalamin 2,000 MCG DAILY 06/24 1000 AC 06/27 PO 0908 Docusate Sodium 100 MG DAILY 06/24 1000 AC 06/27 PO 0908 Folic Acid 1 MG DAILY 06/24 1000 AC 06/27 PO 0908 Furosemide 40 MG DAILY 06/28 1000 AC PO Furosemide 40 MG BID 06/26 2200 DC 06/27 IV 0908 Levothyroxine Sodium 0.025 MG DAILY AC 06/24 0700 AC 06/27 PO 0613 Morphine Sulfate 1 MG Q6-PRN PRN 06/23 1500 AC IV Omeprazole 40 MG DAILY AC 06/24 0700 AC 06/27 PO 0613 Ondansetron HCl 4 MG Q6P PRN 06/26 1430 AC 06/26 IV 1437 Oxycodone/ 1 TAB Q6P PRN 06/23 1500 AC 06/26 Acetaminophen PO 2102 Polyethylene Glycol 17 GM DAILY 06/24 1000 AC 06/26 PO 0938 Potassium Chloride 20 MEQ BID 06/27 2200 AC 06/27 PO 2127 Potassium Chloride 20 MEQ BID 06/24 1345 DC 06/27 PO 0907 Prednisone 5 MG DAILY 06/24 1000 AC 06/27 PO 0915 Pyridoxine HCl 25 MG DAILY 06/24 1000 AC 06/27 PO 0908 Results Last 48 Hrs of Labs/Mics: Laboratory Tests 06/27/16 0645: Anion Gap 11, Estimated GFR 30 L, BUN/Creatinine Ratio 20.0, CBC w Diff MAN DIFF ORDERED, RBC 3.06 L, MCV 94.0, MCH 31.5 H, RDW 16.0 H, MPV 8.8, Gran % 85.2 H, Lymphocytes % 10.2 L, Monocytes % 3.8, Eosinophils % 0.5, Basophils % 0.3, Absolute Granulocytes 10.5 H, Segmented Neutrophils 84 H, Absolute Lymphocytes 1.2, Lymphocytes 11 L, Monocytes 3, Absolute Monocytes 0.5, Absolute Eosinophils 0.1, Basophils 1, Absolute Basophils 0, Metamyelocytes 1, Platelet Estimate VERIFIED BY SMEAR, Polychromasia 1+, Anisocytosis 1+, PUBS MCHC 33.5 06/26/16 0610: Anion Gap 8, Estimated GFR 36 L, BUN/Creatinine Ratio 22.2 Microbiology 06/26 1857 NASOPHARYN: Influenza Virus A & B Rapid Smear - COMP Assessment/Plan Assessment/Plan Improved lower extremity edema with diuresis of over 2 L, but with elevation in his BUN/creatinine. Would consider holding his morning diuretic until his basic metabolic panel is reviewed. Follow-up magnesium level. Continue with his other medications. Increase activity in anticipation of discharge. Continue telemetry? Yes
[2016-06-28 00:13] VITALS: BP 102/54
[2016-06-28 07:41] VITALS: BP 122/74
[2016-06-28 08:10] LABS: ABSOLUTE BASOPHIL COUNT 0 /CUMM (0.0-0.2); ABSOLUTE EOSINOPHIL COUNT 0.1 /CUMM (0.0-0.7); ABSOLUTE GRANULOCYTE CT 10.3 /CUMM (1.4-6.5); ABSOLUTE LYMPH COUNT 1.1 /CUMM (1.2-3.4); ABSOLUTE MONOCYTE COUNT 0.6 /CUMM (0.10-0.60); BASOPHIL % 0.4 % (0.0-2.0); EOSINOPHIL % 0.5 % (0-5); GRANULOCYTE % 85.1 % (42.2-75.2); HEMATOCRIT 28.6 % (42-52); MEAN CORPUSCULAR HGB 31.6 PG (27.0-31.0); MEAN CORPUSCULAR HGB CONC 33.4 G/DL (33.0-37.0); MEAN CORPUSCULAR VOLUME 94.5 FL (80.0-94.0); MEAN PLATELET VOLUME 9.1 FL (7.4-10.4); PLATELET COUNT 213 /CUMM (130-400); RBC DISTRIBUTION WIDTH 15.7 % (11.5-14.5); RED BLOOD CELL CT 3.02 /CUMM (4.70-6.10)
--- NOTE | 2016-06-28 08:15 | PN- Housestaff ---
ZOLTAN CARRERA,JOSE 06/28/16 0815: Subjective Follow-up For: CHF exacerbation pneumonia Tele-Events Since Last Visit: single pacing 102-109 Subjective: Pt was seen this morning, he was comfortably sitting on the chair brushing his teeth while his was making his bed. He reports feeling well, with improvement of his lower extremity edema, however still 2+ up to mid calf. He had bm this am. Lasix continued today 40 po daily. given last dose of ceftriaxone yesterday, will give augmentin 500 q12 starting today (checked with pharmacy, renally dosed ). will get repeat cxr in am. telemetry has been discontinued, ok to transfer to . Review of Systems Constitutional: Reports: see HPI. Objective Last 24 Hrs of Vital Signs/I&O Vital Signs Date Time Temp Pulse Resp B/P Pulse O2 O2 Flow FiO2 Ox Delivery Rate 06/28 1057 95 Room Air 06/28 1009 118 122/74 06/28 0800 Nasal 2.0L Cannula 06/28 0741 97.5 118 16 122/74 97 Nasal 2.0L Cannula 06/28 0013 98.5 110 20 102/54 97 Nasal 2.0L Cannula 06/28 0000 Nasal 2.0L Cannula 06/27 2127 115 06/27 1543 97.3 116 18 118/60 98 Nasal 2.0L Cannula Intake & Output 06/28 1600 06/28 0800 06/28 0000 Intake Total 60 730 Output Total 250 450 Balance -190 280 Intake, IV 10 10 Intake, Oral 50 720 Output, Urine 250 450 Patient 87.657 kg Weight Physical Exam General Appearance: Alert, Oriented X3, Cooperative, No Acute Distress Skin: No Significant Lesion HEENT: Atraumatic Cardiovascular: Regular Rate, Normal S1, Normal S2 Lungs: Clear to Auscultation, Normal Air Movement Abdomen: Normal Bowel Sounds, Soft, No Tenderness Extremities: 2+ pitting edema up to mid calf Current Medications: Current Medications Sig/Jaswinder Start time Last Medication Dose Route Stop Time Status Admin Acetaminophen 650 MG Q6P PRN 06/23 1500 AC PO Albuterol Sulfate 2 PUF Q4P PRN 06/24 1445 AC INH Allopurinol 100 MG DAILY 06/24 1000 AC 06/28 PO 1009 Amoxicillin/ 500 MG Q12 06/28 1245 AC Clavulanate Potassium PO Apixaban 2.5 MG BID 06/23 220 AC 06/28 PO 1009 Atorvastatin Calcium 10 MG 1700 06/23 1700 AC 06/27 PO 1623 Azithromycin 500 MG DAILY 06/24 1000 DC 06/27 Dextrose/Water 250 ML IV 0916 Budesonide/ 2 PUF BID 06/23 2200 AC 06/28 Formoterol Fumarate INH 1009 Carvedilol 12.5 MG BID 06/23 2200 AC 06/28 PO 1009 Ceftriaxone Sodium 1,000 MG DAILY 06/24 1000 DC 06/27 IV 0908 Cholecalciferol 1,000 IU DAILY 06/24 1000 AC 06/28 PO 1009 Cyanocobalamin 2,000 MCG DAILY 06/24 1000 AC 06/28 PO 1009 Docusate Sodium 100 MG DAILY 06/24 1000 AC 06/28 PO 1008 Folic Acid 1 MG DAILY 06/24 1000 AC 06/28 PO 1009 Furosemide 40 MG DAILY 06/28 1245 AC PO Furosemide 40 MG DAILY 06/28 1000 CAN PO Levothyroxine Sodium 0.025 MG DAILY AC 06/24 0700 AC 06/28 PO 0651 Morphine Sulfate 1 MG Q6-PRN PRN 06/23 1500 AC IV Omeprazole 40 MG DAILY AC 06/24 0700 AC 06/28 PO 0651 Ondansetron HCl 4 MG Q6P PRN 06/26 1430 AC 06/26 IV 1437 Oxycodone/ 1 TAB Q6P PRN 06/23 1500 AC 06/27 Acetaminophen PO 2211 Polyethylene Glycol 17 GM DAILY 06/24 1000 AC 06/26 PO 0938 Potassium Chloride 20 MEQ BID 06/270 AC 06/28 PO 1009 Potassium Chloride 20 MEQ BID 06/24 1345 DC 06/27 PO 0907 Prednisone 5 MG DAILY 06/24 1000 AC 06/28 PO 1009 Pyridoxine HCl 25 MG DAILY 06/24 1000 AC 06/28 PO 1009 Last 24 Hrs of Lab/Pro Results Last 24 Hrs of Labs/Mics: Laboratory Tests 06/28/16 0703: Anion Gap 7, Estimated GFR 34 L, BUN/Creatinine Ratio 22.6, CBC w Diff NO MAN DIFF REQ, RBC 3.02 L, MCV 94.5 H, MCH 31.6 H, RDW 15.7 H, MPV 9.1, Gran % 85.1 H, Lymphocytes % 9.1 L, Monocytes % 4.9, Eosinophils % 0.5, Basophils % 0.4, Absolute Granulocytes 10.3 H, Absolute Lymphocytes 1.1 L, Absolute Monocytes 0.6, Absolute Eosinophils 0.1, Absolute Basophils 0, PUBS MCHC 33.4 Assessment/Plan Assessment: 85 year-old gentleman with past medical history of CAD s/p status post 7 stents, A. fib on a liquids s/p pacemaker placement, HFrEF (ejection fraction 40-45%), TIA, gout, lung cancer s/p right lobe resection, prostate cancer, hypothyroidism , osteoarthritis, s/p melanoma resection, COPD, hypertension, hyperlipidemia presented with several days of orthopnea and 2-day history of progressive swelling of bilateral lower limbs. On presentation the patient was febrile with temperature 100.2, initial blood work showed an increasing proBNP to 4930, CXR shows consolidation and volume loss in the left lower lobe, has leukocytosis with white count of 14,100 and 87% granulocytes, with elevated troponin at 0.15. 1. Acute on chronic CHF exacerbation: * LASIX 40 PO DAILY * F/U repeat CXR 06/29 * Discontinue tele, Transfer to 2. Sepsis secondary to community-acquired pneumonia: Patient has fever, leukocytosis with LLL lung consolidation, IV ceftriaxone/azithromycin #5, streptococcal and legionella antigens negative, blood culture results remain negative, continue TRC/nebs. Can switch to PO AUGMNETIN and complete for 7 days * AUGMENTIN 500 BID started 06/28 3. Elevated troponin: Likely secondary to demand ischemia, Troponin x 3 sets showing constant troponin of 0.18 then the last one decreased to 0.16. Continue tele monitoring. 4. AFIB on eliquis s/p PM: continue coreg 12.5mg bid and apixaban 2.5 mg bid 5. COPD: Continue with Symbicort TRC nebs 6. Gout/OA: Continue allopurinol 100 mg daily and prednisone 5 mg daily, Rt. knee x-ray shows small pleural effusion, f/u with Dr. Duarte as outpt. 7. Hypertension: Continue carvedilol 12.5 mg daily 8. Hyperlipidemia: Continue simvastatin 9. Hypothyroidism: Continue levothyroxine 25 g DVT ppx: po eliquis full code Problem List: 1. CHF (congestive heart failure) 2. Pneumonia Pain Ratin Pain Location: none Pain Goal: Remain pain free Pain Plan: none Tomorrow's Labs & Rationales: none DVT/Prophylaxis: mechanical, pharmacological Consulting Request: Consulting Specialty: Cardiology Consulting Physician: Dr. Vidales Reason for Consult: Acute on chronic HF IZABELA CARRERA,WILD 06/28/16 1137: Attending MD Review Statement Attending Statement Attending MD Statement: examined this patient, discuss w/resident/PA/RADIOLOGY TEACHER, agreed w/resident/PA/RADIOLOGY TEACHER, discussed with family, reviewed EMR data (avail), discussed with nursing, amended to note Attending Assessment/Plan: Patient seen and examined. Resting comfortably in his chair not in acute distress. Denies cough, denies shortness of breath. No events overnight on telemetry. Patient continues to require oxygen supplementation. He desaturates to 84% on room air at rest. On examination he has diminished breath sounds in the left lung base. He has 2-3+ pedal edema bilaterally. Patient was started on empiric antibiotic therapy on admission due to chest x-ray finding of consolidation/effusion in the left lung base. He also had leukocytosis. Patient however has been afebrile. Despite antibiotic therapy he continues to have leukocytosis. He denies any productive cough. Due to rising creatinine he is Lasix dose was decreased, he received only 40 mg IV yesterday. Creatinine has improved this morning. Recommendations: -Patient's persistent left lung findings in the face of aggressive diuresis her concerning. He may require diagnostic thoracocentesis is for further evaluation. -Continue with Lasix 40 mg orally daily today. Obtain chest x-ray PA lateral tomorrow to further assess the pleural effusion. -Follow-up and nursing staff for consistent monitoring of his daily weights. He does not appear to have lost any weight through this admission despite a net negative balance of 1500 mL. -Transition patient to Augmentin 875 mg orally twice daily for empiric coverage for goiter: Pneumonia. Reassess need for antibiotic therapy after evaluation of chest x-ray tomorrow. -Mild drop in hemoglobin levels noted. Check stool guaiac.
[2016-06-28 09:22] LABS: WHITE BLOOD CELL COUNT 12.1 /CUMM (4.8-10.8)
[2016-06-28 15:56] VITALS: BP 122/60
[2016-06-29 00:35] VITALS: BP 128/64
[2016-06-29 08:00] VITALS: BP 110/56
--- NOTE | 2016-06-29 08:22 | PN- Housestaff ---
See Addendum GARY CARRERA,MARCIGEO 06/29/16 0813: Subjective Follow-up For: Acute on chronic systolic HF Pneumonia Complaints: Bilateral LE edema Tele-Events Since Last Visit: off tele Subjective: Pt is sitting bed comfortably, melanoma resection stitches removed. He denies any fever/chills, shortness of breath/chest pain. He has intermittent cought without sputum. He still has bilateral LE edema more than baseline. Review of Systems Constitutional: Denies: chills, fever, weakness. EENTM: Reports: no symptoms. Cardiovascular: Reports: orthopena, peripheral edema. Denies: chest pain, palpitations. Respiratory: Reports: cough. Denies: short of breath, sputum production, wheezing. Gastrointestinal: Denies: abdominal pain, diarrhea, nausea, vomiting. Genitourinary: Reports: no symptoms. Musculoskeletal: Reports: no symptoms. Skin: Reports: no symptoms. Neurological/Psychological: Reports: no symptoms. Hematologic/Endocrine: Reports: no symptoms. Immunologic/Allergic: Reports: no symptoms. Objective Last 24 Hrs of Vital Signs/I&O Vital Signs Date Time Temp Pulse Resp B/P Pulse O2 O2 Flow FiO2 Ox Delivery Rate 06/29 0035 98.1 117 16 128/64 96 Room Air 06/29 0000 92 Nasal 1.0L Cannula 06/28 2053 104 122/60 06/28 1556 98.0 104 16 122/60 93 Room Air 06/28 1057 95 Room Air 06/28 1009 118 122/74 Intake & Output 06/29 1600 06/29 0800 06/29 0000 Intake Total 600 Output Total 300 425 Balance -300 175 Intake, Oral 600 Number 1 Bowel Movements Output, Urine 300 425 Patient 193 lb Weight Physical Exam General Appearance: Alert, Oriented X3, Cooperative, No Acute Distress Skin: No Rashes, No Breakdown, No Significant Lesion HEENT: Atraumatic, PERRLA, EOMI, Mucous Membr. moist/pink Neck: Supple, No JVD, No LAD Lymphatic: Cervical nl Cardiovascular: Normal S1, Normal S2, tachycardic, systolic murmurs Lungs: decreased breathing sound on LLL Abdomen: Normal Bowel Sounds, Soft, No Tenderness Neurological: Normal Speech, Strength at 5/5 X4 Ext, Normal Tone, Cranial Nerves 3-12 NL Extremities: bilateral LE pitting edema 2+ Vascular: Normal Pulses, Pulses Symmetrical Current Medications: Current Medications Sig/Jaswinder Start time Last Medication Dose Route Stop Time Status Admin Acetaminophen 650 MG Q6P PRN 06/23 1500 AC PO Albuterol Sulfate 2 PUF Q4P PRN 06/24 1445 AC INH Allopurinol 100 MG DAILY 06/24 1000 AC 06/28 PO 1009 Amoxicillin/ 500 MG Q12 06/28 1245 AC 06/28 Clavulanate Potassium PO 2052 Apixaban 2.5 MG BID 06/23 220 AC 06/28 PO 2052 Atorvastatin Calcium 10 MG 1700 06/23 1700 AC 06/28 PO 1700 Azithromycin 500 MG DAILY 06/24 1000 DC 06/27 Dextrose/Water 250 ML IV 0916 Budesonide/ 2 PUF BID 06/23 2199 AC 06/28 Formoterol Fumarate INH 2052 Carvedilol 12.5 MG BID 06/23 2200 AC 06/28 PO 2052 Ceftriaxone Sodium 1,000 MG DAILY 06/24 1000 DC 06/27 IV 0908 Cholecalciferol 1,000 IU DAILY 06/24 1000 AC 06/28 PO 1009 Cyanocobalamin 2,000 MCG DAILY 06/24 1000 AC 06/28 PO 1009 Docusate Sodium 100 MG DAILY 06/24 1000 AC 06/28 PO 1008 Folic Acid 1 MG DAILY 06/24 1000 AC 06/28 PO 1009 Furosemide 40 MG DAILY 06/28 1245 AC 06/28 PO 1528 Levothyroxine Sodium 0.025 MG DAILY AC 06/24 0700 AC 06/29 PO 0633 Morphine Sulfate 1 MG Q6-PRN PRN 06/23 1500 AC IV Omeprazole 40 MG DAILY AC 06/24 0700 AC 06/29 PO 0633 Ondansetron HCl 4 MG Q6P PRN 06/26 1430 AC 06/26 IV 1437 Oxycodone/ 1 TAB Q6P PRN 06/23 1500 AC 06/28 Acetaminophen PO 2051 Polyethylene Glycol 17 GM DAILY 06/24 1000 AC 06/26 PO 0938 Potassium Chloride 20 MEQ BID 06/27 2200 AC 06/28 PO 3 Prednisone 5 MG DAILY 06/24 1000 AC 06/28 PO 1009 Pyridoxine HCl 25 MG DAILY 06/24 1000 AC 06/28 PO 1009 Lines/Diet/Fluids Lines: peripheral lines Assessment/Plan Assessment: 85 year-old gentleman with past medical history of CAD s/p status post 7 stents, A. fib on a liquids s/p pacemaker placement, HFrEF (ejection fraction 40-45%), TIA, gout, lung cancer s/p right lobe resection, prostate cancer, hypothyroidism , osteoarthritis, s/p melanoma resection, COPD, hypertension, hyperlipidemia presented with several days of orthopnea and 2-day history of progressive swelling of bilateral lower limbs. On presentation the patient was febrile with temperature 100.2, initial blood work showed an increasing proBNP to 4930, CXR shows consolidation and volume loss in the left lower lobe, has leukocytosis with white count of 14,100 and 87% granulocytes, with elevated troponin at 0.15. 1. Acute on chronic CHF exacerbation: * LASIX was changed to 40 PO DAILY, + 385 1DA, not in negative balance. * F/U repeat CXR 06/29 regarding possible Lt. pleural effusion * Discontinue tele, Transfer to 2. Sepsis secondary to community-acquired pneumonia: Patient has fever, leukocytosis with LLL lung consolidation, IV ceftriaxone/azithromycin #5, streptococcal and legionella antigens negative, blood culture results remain negative, continue TRC/nebs. Can switch to PO AUGMNETIN and complete for 7 days * AUGMENTIN 500 BID started 06/28 3. Elevated troponin: Likely secondary to demand ischemia, Troponin x 3 sets showing constant troponin of 0.18 then the last one decreased to 0.16. 4. AFIB on eliquis s/p PM: continue coreg 12.5mg bid and apixaban 2.5 mg bid 5. COPD: Continue with Symbicort TRC nebs 6. Gout/OA: Continue allopurinol 100 mg daily and prednisone 5 mg daily, Rt. knee x-ray shows small pleural effusion, f/u with Dr. Duarte as outpt. 7. Hypertension: Continue carvedilol 12.5 mg daily 8. Hyperlipidemia: Continue simvastatin 9. Hypothyroidism: Continue levothyroxine 25 g DVT ppx: po eliquis full code Problem List: 1. CHF (congestive heart failure) 2. Pneumonia Pain Ratin Pain Location: NA Pain Goal: Pain 4 or less Pain Plan: tyrenol, percocet Tomorrow's Labs & Rationales: Possible D/C today DVT/Prophylaxis: pharmacological Consulting Request: Consulting Specialty: Cardiology Consulting Physician: Dr. Vidales Reason for Consult: Acute on chronic HF Discharge Plan Stable for Discharge? Yes JASPER CARRERA,SOPHIE 06/29/16 1112: Attending MD Review Statement Attending Statement Attending MD Statement: examined this patient, discuss w/resident/PA/SANDWICH COUNTER ATTENDANT, agreed w/resident/PA/SANDWICH COUNTER ATTENDANT, discussed with family, reviewed EMR data (avail), discussed with nursing, discussed with case mgmt Attending Assessment/Plan: Patient seen and examined. Plan of care discussed with the medical team and the patient. Available lab work and radiology test reports were reviewed. Patient is sitting in a chair comfortably. He denies any difficulty breathing fever pains or chills. He continues to have lower extremity edema which. he believes edema has improved since admission. On exam patient has few basal crepitations. Extremities show 2+ pitting edema at ankles. Abdomen soft nontender. Patient's currently awake alert and oriented. WBC count is 12.1 and hematocrit is 28.6. Creatinine is 1.6. cxr 1. Cardiomegaly without acute pulmonary edema. 2. Hypoinflated lungs and persistent atelectasis in the left lower lobe. Assessment plan * Congestive heart failure exacerbation * Peripheral edema * Pneumonia currently on Augmentin * Acute and chronic renal failure worsened with Lasix Plan * Continue Lasix. We will wait for cardiogenic input to see if Lasix dose should be increased given the degree of edema. * Complete at least 5 days of antibiotics * If clear by cardiology patient can be discharged to short-term rehabilitation facility.
--- NOTE | 2016-06-29 11:10 | RADIOLOGY REPORT ---
EXAMINATION: XR CHEST CLINICAL INFORMATION: 85-year-old male with shortness of breath. COMPARISON: CXR from 06/23/2016. Chest CT from 05/25/2016. TECHNIQUE: Chest, PA and lateral views FINDINGS: Large body habitus. Lungs remain hypoinflated and there is linear opacity of atelectasis within the left lower lobe. No acute airspace opacification, pulmonary edema or pleural effusion. There is thin pleural-based calcification of the right lower hemithorax. The enlarged cardiac silhouette has stable size and configuration. Thoracic aorta is calcified. There is a left prepectoral cardiac pacemaker/AICD with right atrial and biventricular leads in place. No acute skeletal findings. IMPRESSION: 1. Cardiomegaly without acute pulmonary edema. 2. Hypoinflated lungs and persistent atelectasis in the left lower lobe.
[2016-06-29 15:40] VITALS: BP 130/58
--- NOTE | 2016-06-29 16:33 | PN- Cardiology ---
Subjective Subjective: The patient is feeling well. He notes intermittent cough. No chest pain. Shortness of breath is improving. Lower extremity edema is persistent. Objective Vital Signs and I&Os Vital Signs Date Time Temp Pulse Resp B/P Pulse O2 O2 Flow FiO2 Ox Delivery Rate 06/29 1540 97.7 120 18 130/58 94 Room Air 06/29 0941 112 110/56 06/29 0800 97.6 112 18 110/56 94 Room Air 06/29 0800 95 Room Air 06/29 0035 98.1 117 16 128/64 96 Room Air 06/29 0000 92 Nasal 1.0L Cannula 06/28 2052 104 122/60 Intake & Output 06/29 1600 06/29 0800 06/29 0000 06/28 1600 06/28 0800 06/28 0000 Intake Total 360 600 500 60 730 Output Total 380 300 425 100 250 450 Balance -20 -300 175 400 -190 280 Intake, IV 20 10 10 Intake, Oral 360 600 480 50 720 Number 1 Bowel Movements Output, Urine 380 300 425 100 250 450 Patient 193 lb 193 lb Weight Physical Exam: Gen: The patient is in no acute distress HEENT: Normal nose, ears, and oropharynx. Pupils equal bilaterally. Conjunctiva normal. Neck: Supple with no JVD, no masses, and no thyromegaly Lungs: There are to auscultation with normal respiratory effort Heart: Irregularly irregular, S1, S2, 2/6 systolic murmur. 2+ peripheral edema, 2+ pulses in the lower extremities bilaterally Abdomen: Soft, nontender, no masses. No hepatomegaly. No splenomegaly Extremities: No clubbing or cyanosis. Normal muscle strength in the upper and lower extremities Skin: Normal skin turgor with no skin ulcers or lesions noted. Current Medications: Current Medications Sig/Jaswinder Start time Last Medication Dose Route Stop Time Status Admin Acetaminophen 650 MG Q6P PRN 06/23 1500 AC PO Albuterol Sulfate 2 PUF Q4P PRN 06/24 1445 AC INH Allopurinol 100 MG DAILY 06/24 1000 AC 06/29 PO 0942 Amoxicillin/ 500 MG Q12 06/28 1245 AC 06/29 Clavulanate Potassium PO 0941 Apixaban 2.5 MG BID 06/23 2200 AC 06/29 PO 0941 Atorvastatin Calcium 10 MG 1700 06/23 1700 AC 06/28 PO 1700 Budesonide/ 2 PUF BID 06/230 AC 06/29 Formoterol Fumarate INH 0942 Carvedilol 12.5 MG BID 06/23 220 AC 06/29 PO 0941 Cholecalciferol 1,000 IU DAILY 06/24 1000 AC 06/29 PO 0942 Cyanocobalamin 2,000 MCG DAILY 06/24 1000 AC 06/29 PO 0942 Docusate Sodium 100 MG DAILY 06/24 1000 AC 06/29 PO 0941 Folic Acid 1 MG DAILY 06/24 1000 AC 06/29 PO 0941 Furosemide 40 MG BID 06/29 2200 DC IV Furosemide 40 MG 7:30 AM, & 4:30 PM 06/29 1630 AC IV Furosemide 40 MG DAILY 06/28 1245 DC 06/29 PO 0941 Levothyroxine Sodium 0.025 MG DAILY AC 06/24 0700 AC 06/29 PO 0633 Morphine Sulfate 1 MG Q6-PRN PRN 06/23 1500 DC IV Omeprazole 40 MG DAILY AC 06/24 0700 AC 06/29 PO 0633 Ondansetron HCl 4 MG Q6P PRN 06/26 1430 AC 06/26 IV 1437 Oxycodone/ 1 TAB Q6P PRN 06/23 1500 AC 06/28 Acetaminophen PO 205 Polyethylene Glycol 17 GM DAILY 06/24 1000 AC 06/26 PO 0938 Potassium Chloride 20 MEQ BID 06/27 220 AC 06/29 PO 0942 Prednisone 5 MG DAILY 06/24 1000 AC 06/29 PO 0942 Pyridoxine HCl 25 MG DAILY 06/24 1000 AC 06/29 PO 0942 Results Last 48 Hrs of Labs/Mics: Laboratory Tests 06/29/16 0905: Anion Gap 10, Estimated GFR 41 L, BUN/Creatinine Ratio 23.1 06/28/16 07: Anion Gap 7, Estimated GFR 34 L, BUN/Creatinine Ratio 22.6, CBC w Diff NO MAN DIFF REQ, RBC 3.02 L, MCV 94.5 H, MCH 31.6 H, RDW 15.7 H, MPV 9.1, Gran % 85.1 H, Lymphocytes % 9.1 L, Monocytes % 4.9, Eosinophils % 0.5, Basophils % 0.4, Absolute Granulocytes 10.3 H, Absolute Lymphocytes 1.1 L, Absolute Monocytes 0.6, Absolute Eosinophils 0.1, Absolute Basophils 0, PUBS MCHC 33.4 Recent Imaging Studies: Chest x-ray: 1. Cardiomegaly without acute pulmonary edema. 2. Hypoinflated lungs and persistent atelectasis in the left lower lobe. Assessment/Plan Assessment/Plan Assessment: 1. CAD 2. Chronic renal insufficiency 3. Acute on chronic diastolic heart failure Recommendations: * Continue Lasix 40 milligrams IV q 12 hours * Monitor input and output * Discharge to short-term rehab tomorrow if stable. * Would discharge on Lasix 40 milligrams p.o. b.i.d.. Continue telemetry? No
[2016-06-29 23:02] VITALS: BP 124/56
[2016-06-30] MEDS ORDERED: LASIX40 M1 PO (07:38)
--- NOTE | 2016-06-30 07:40 | PN- Housestaff ---
Subjective Follow-up For: Acue on chronic systolic HF pneumonia Complaints: chronic LE edema Tele-Events Since Last Visit: off tele Subjective: Pt is sitting on the bed, legs elevated. Andre was inserted for strict I/Os, -966 1DA Leg swelling is present but less. PT eval recommended STR Review of Systems Constitutional: Denies: chills, fever, weakness. EENTM: Reports: no symptoms. Cardiovascular: Reports: peripheral edema. Denies: chest pain, palpitations, syncope. Respiratory: Denies: cough, short of breath, sputum production, wheezing. Gastrointestinal: Denies: abdominal pain, constipation, nausea, vomiting. Genitourinary: Reports: see HPI. Musculoskeletal: Reports: no symptoms. Skin: Reports: no symptoms. Neurological/Psychological: Reports: no symptoms. Hematologic/Endocrine: Reports: no symptoms. Immunologic/Allergic: Reports: no symptoms. Objective Last 24 Hrs of Vital Signs/I&O Vital Signs Date Time Temp Pulse Resp B/P Pulse O2 O2 Flow FiO2 Ox Delivery Rate 06/29 2302 98.4 100 20 124/56 94 Room Air 06/29 1540 97.7 120 18 130/58 94 Room Air 06/29 0941 112 110/56 Intake & Output 06/30 1600 06/30 0800 06/30 0000 Intake Total 60 504 Output Total 400 1150 Balance -340 -646 Intake, IV 10 24 Intake, Oral 50 480 Number 1 Bowel Movements Output, Urine 400 1150 Patient 189 lb Weight Physical Exam General Appearance: Alert, Oriented X3, Cooperative, No Acute Distress Skin: No Rashes, No Breakdown, No Significant Lesion HEENT: Atraumatic, PERRLA, EOMI, Mucous Membr. moist/pink Neck: Supple, No JVD, No thryomegaly, No LAD Lymphatic: Cervical nl Cardiovascular: Normal S1, Normal S2, tachycardic, systolic murmurs Lungs: Decreased breathing sound LLL Abdomen: Normal Bowel Sounds, Soft, No Tenderness Neurological: Normal Speech, Strength at 5/5 X4 Ext, Normal Tone, Sensation Intact Extremities: Normal Pulses, No Tenderness/Swelling, bilateral pitting edema 2+ Vascular: Normal Pulses, Pulses Symmetrical Current Medications: Current Medications Sig/Jaswinder Start time Last Medication Dose Route Stop Time Status Admin Acetaminophen 650 MG Q6P PRN 06/23 1500 AC PO Albuterol Sulfate 2 PUF Q4P PRN 06/24 1445 AC INH Allopurinol 100 MG DAILY 06/24 1000 AC 06/29 PO 0942 Amoxicillin/ 500 MG Q12 06/28 1245 AC 06/29 Clavulanate Potassium PO 2056 Apixaban 2.5 MG BID 06/23 2200 AC 06/29 PO 2056 Atorvastatin Calcium 10 MG 1700 06/23 1700 AC 06/29 PO 1638 Budesonide/ 2 PUF BID 06/23 2200 AC 06/29 Formoterol Fumarate INH 2056 Carvedilol 12.5 MG BID 06/23 2200 AC 06/29 PO 2056 Cholecalciferol 1,000 IU DAILY 06/24 1000 AC 06/29 PO 0942 Cyanocobalamin 2,000 MCG DAILY 06/24 1000 AC 06/29 PO 0942 Docusate Sodium 100 MG DAILY 06/24 1000 AC 06/29 PO 0941 Folic Acid 1 MG DAILY 06/24 1000 AC 06/29 PO 0941 Furosemide 40 MG BID 06/29 2200 DC IV Furosemide 40 MG 7:30 AM, & 4:30 PM 06/29 1630 AC 06/30 IV 0803 Furosemide 40 MG DAILY 06/28 1245 DC 06/29 PO 0941 Levothyroxine Sodium 0.025 MG DAILY AC 06/24 0700 AC 06/30 PO 0627 Omeprazole 40 MG DAILY AC 06/24 0700 AC 06/30 PO 0627 Ondansetron HCl 4 MG Q6P PRN 06/26 1430 AC 06/26 IV 1437 Oxycodone/ 1 TAB Q6P PRN 06/23 1500 AC 06/29 Acetaminophen PO 2056 Polyethylene Glycol 17 GM DAILY 06/24 1000 AC 06/26 PO 0938 Potassium Chloride 20 MEQ BID 06/27 2200 AC 06/29 PO 2056 Prednisone 5 MG DAILY 06/24 1000 AC 06/29 PO 0942 Pyridoxine HCl 25 MG DAILY 06/24 1000 AC 06/29 PO 0942 Last 24 Hrs of Lab/Pro Results Last 24 Hrs of Labs/Mics: Laboratory Tests 06/30/16 0610: Anion Gap 4 L, Estimated GFR 41 L, BUN/Creatinine Ratio 21.3 06/29/16 0905: Anion Gap 10, Estimated GFR 41 L, BUN/Creatinine Ratio 23.1 Microbiology 06/29 1400 URINE ROUT: Urine Culture - RECD Lines/Diet/Fluids Lines: peripheral lines Assessment/Plan Assessment: 85 year-old gentleman with past medical history of CAD s/p status post 7 stents, A. fib on a liquids s/p pacemaker placement, HFrEF (ejection fraction 40-45%), TIA, gout, lung cancer s/p right lobe resection, prostate cancer, hypothyroidism , osteoarthritis, s/p melanoma resection, COPD, hypertension, hyperlipidemia presented with several days of orthopnea and 2-day history of progressive swelling of bilateral lower limbs. On presentation the patient was febrile with temperature 100.2, initial blood work showed an increasing proBNP to 4930, CXR shows consolidation and volume loss in the left lower lobe, has leukocytosis with white count of 14,100 and 87% granulocytes, with elevated troponin at 0.15. 1. Acute on chronic CHF exacerbation: * Pt was started on IV LASIX 40 bid, I/O - 966 1DA. Will discharge pt with po lasix 40 bid. * repeat CXR 06/29 showed no pulmonary edema, persistent atelectasis on LLL * Will DC to STR today. Cr stable 1.6 2. Sepsis secondary to community-acquired pneumonia: Patient has fever, leukocytosis with LLL lung consolidation, IV ceftriaxone/azithromycin #5, streptococcal and legionella antigens negative, blood culture results remain negative, continue TRC/nebs. Can switch to PO AUGMNETIN and complete for 7 days * AUGMENTIN 500 BID started 06/28 3. Elevated troponin: Likely secondary to demand ischemia, Troponin x 3 sets showing constant troponin of 0.18 then the last one decreased to 0.16. 4. AFIB on eliquis s/p PM: continue coreg 12.5mg bid and apixaban 2.5 mg bid 5. COPD: Continue with Symbicort TRC nebs 6. Gout/OA: Continue allopurinol 100 mg daily and prednisone 5 mg daily, Rt. knee x-ray shows small pleural effusion, f/u with Dr. Duarte as outpt. 7. Hypertension: Continue carvedilol 12.5 mg daily 8. Hyperlipidemia: Continue simvastatin 9. Hypothyroidism: Continue levothyroxine 25 g DVT ppx: po eliquis full code Problem List: 1. CONGESTIVE HEART FAILURE 2. Pneumonia Pain Ratin Pain Location: NA Pain Goal: Pain 4 or less Pain Plan: Percocet, tyrenol Tomorrow's Labs & Rationales: D/C today Consulting Request: Consulting Specialty: Cardiology Consulting Physician: Dr. Vidales Reason for Consult: Acute on chronic HF Discharge Plan Discharge Disposition: STR/NH Stable for Discharge? Yes Anticipated Discharge (Day): today If Discharged Today/In 24 Hrs: enter ant[facility] discharge ord, W-10/discharge paper done, DC summary done, CMR done
[2016-06-30] MEDS ORDERED: TYLENOL325 M1 PO (08:27)
[2016-06-30 09:02] VITALS: BP 140/64
--- NOTE | 2016-06-30 10:26 | PN- Cardiology ---
Subjective Subjective: The patient reports that he is feeling well. Edema is improving. Shortness of breath is improved. No chest pain. No palpitations. No lightheadedness or dizziness. No nausea or vomiting. Objective Vital Signs and I&Os Vital Signs Date Time Temp Pulse Resp B/P Pulse O2 O2 Flow FiO2 Ox Delivery Rate 06/30 0911 122 140/64 06/30 0902 98.6 122 20 140/64 94 Room Air 06/30 0800 Room Air 06/29 2302 98.4 100 20 124/56 94 Room Air 06/29 1540 97.7 120 18 130/58 94 Room Air Intake & Output 06/30 1600 06/30 0800 06/30 0000 06/29 1600 06/29 0800 06/29 0000 Intake Total 60 504 360 600 Output Total 400 1150 380 300 425 Balance -340 -646 -20 -300 175 Intake, IV 10 24 Intake, Oral 50 480 360 600 Number 1 1 Bowel Movements Output, Urine 400 1150 380 300 425 Patient 189 lb 193 lb Weight Physical Exam: Gen: The patient is in no acute distress HEENT: Normal nose, ears, and oropharynx. Pupils equal bilaterally. Conjunctiva normal. Neck: Supple with no JVD, no masses, and no thyromegaly Lungs: There are to auscultation with normal respiratory effort Heart: Irregularly irregular, S1, S2, 2/6 systolic murmur. 2+ peripheral edema, 2+ pulses in the lower extremities bilaterally Abdomen: Soft, nontender, no masses. No hepatomegaly. No splenomegaly Extremities: No clubbing or cyanosis. Normal muscle strength in the upper and lower extremities Skin: Normal skin turgor with no skin ulcers or lesions noted. Current Medications: Current Medications Sig/Jaswinder Start time Last Medication Dose Route Stop Time Status Admin Acetaminophen 650 MG Q6P PRN 06/23 1500 AC PO Albuterol Sulfate 2 PUF Q4P PRN 06/24 1445 AC INH Allopurinol 100 MG DAILY 06/24 1000 AC 06/30 PO 0911 Amoxicillin/ 500 MG Q12 06/28 1245 AC 06/30 Clavulanate Potassium PO 0911 Apixaban 2.5 MG BID 06/23 2200 AC 06/30 PO 0911 Atorvastatin Calcium 10 MG 1700 06/23 1700 AC 06/29 PO 1638 Budesonide/ 2 PUF BID 02/21 2200 AC 06/30 Formoterol Fumarate INH 0911 Carvedilol 12.5 MG BID 06/23 2200 AC 06/30 PO 0911 Cholecalciferol 1,000 IU DAILY 06/24 1000 AC 06/30 PO 0911 Cyanocobalamin 2,000 MCG DAILY 06/24 1000 AC 06/30 PO 0911 Docusate Sodium 100 MG DAILY 06/24 1000 AC 06/30 PO 0911 Folic Acid 1 MG DAILY 06/24 1000 AC 06/30 PO 0911 Furosemide 40 MG BID 06/29 2200 DC IV Furosemide 40 MG 7:30 AM, & 4:30 PM 06/29 1630 AC 06/30 IV 0803 Furosemide 40 MG DAILY 06/28 1245 DC 06/29 PO 0941 Levothyroxine Sodium 0.025 MG DAILY AC 06/24 0700 AC 06/30 PO 0627 Omeprazole 40 MG DAILY AC 06/24 0700 AC 06/30 PO 0627 Ondansetron HCl 4 MG Q6P PRN 06/26 1430 AC 06/26 IV 1437 Oxycodone/ 1 TAB Q6P PRN 06/23 1500 AC 06/29 Acetaminophen PO 2057 Polyethylene Glycol 17 GM DAILY 06/24 1000 AC 06/26 PO 0938 Potassium Chloride 20 MEQ BID 06/27 2200 AC 06/30 PO 0910 Prednisone 5 MG DAILY 06/24 1000 AC 06/30 PO 0911 Pyridoxine HCl 25 MG DAILY 06/24 1000 AC 06/30 PO 0911 Results Last 48 Hrs of Labs/Mics: Laboratory Tests 06/30/16 0610: Anion Gap 4 L, Estimated GFR 41 L, BUN/Creatinine Ratio 21.3 06/29/16 0905: Anion Gap 10, Estimated GFR 41 L, BUN/Creatinine Ratio 23.1 Recent Imaging Studies: Chest x-ray 06/29/16: 1. Cardiomegaly without acute pulmonary edema. 2. Hypoinflated lungs and persistent atelectasis in the left lower lobe. Assessment/Plan Assessment/Plan Assessment: 1. CAD 2. Chronic renal insufficiency 3. Acute on chronic diastolic heart failure, improved Recommendations: * Okay for discharge from cardiac standpoint. * Would discharge on Lasix 40 mg oral twice a day. * Continue other medications. * Follow up within one week with Dr. Vidales. Continue telemetry? No
[2016-06-30 10:58] VITALS: BP 140/64
== END 2016-06-30 12:32 | DRG 291 ==
LOC: ENRESERVDT → ENRESERVTM → ERH 09:55 → ERHI 10:17 → 1NO 10:17 → ENPENDDIS 10:17 → 1NO 13:51
PROVIDERS: Emergency Medicine; Internal Medicine; Internal Medicine Nephrology; ADMIT Internal Medicine
DX: I13.0 Hypertensive heart and chronic kidney disease with heart failure and stage 1 through stage 4 chronic kidney disease, or unspecified chronic kidney disease (principal); I50.33 Acute on chronic diastolic (congestive) heart failure; J18.9 Pneumonia, unspecified organism; I48.91 Unspecified atrial fibrillation; J44.9 Chronic obstructive pulmonary disease, unspecified; N18.9 Chronic kidney disease, unspecified; I25.10 Atherosclerotic heart disease of native coronary artery without angina pectoris; Z95.5 Presence of coronary angioplasty implant and graft; Z95.810 Presence of automatic (implantable) cardiac defibrillator; E03.9 Hypothyroidism, unspecified; E78.00 Pure hypercholesterolemia, unspecified; M10.9 Gout, unspecified; Z85.118 Personal history of other malignant neoplasm of bronchus and lung; Z85.821 Personal history of Merkel cell carcinoma
CPT/HCPCS: 1NSP; 36415; 73560-RT; 81001; 82436; 87040; 87070; 87086; 87449; 87450; 87804; 87804-59; 93005; 93010; 93970; 96374; 96375; 97110-GO; 97116-GO; 97162-GP; 97530-GO; 99291; J0456; J0696; J0713; J1940; J2405; J3490; J7060; J7512

== ENCOUNTER 2016-07-04 09:41 | Inpatient (IN) | payer OTHER, BC, MEDICARE ==
[~2016-07-04] VITALS: Ht 167.6 cm; Wt 83.0 kg
[~2016-07-04 09:41] MED LIST changes: +AUGMENTIN 875-1 EACH PO; +TYLENOL325 M1 PO
[2016-07-04] MEDS ORDERED: SENNA S TABLET1 EACH PO (09:51)
--- NOTE | 2016-07-04 09:52 | NUR ---
PT EVARISTO FROM [facility] FOR C/O CHEST PAIN SINCE 729 THIS AM. PT ALSO C/O SOB WITH WALKING THIS AM. PT RECEIVED 2 SL NITRO BY EMS WITH RELIEF. PT ARRIVES A/OX3. CHANGED INTO GOWN, PLACED ON MONITOR, EKG IN PROGRESS. AWAITING EVAL.
--- NOTE | 2016-07-04 09:57 | NUR ---
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
--- NOTE | 2016-07-04 10:09 | ED CARDIAC/CP/PALPITATIONS ---
History of Present Illness General Chief Complaint: Chest Pain Stated Complaint: BIBA, C/P Source: patient, old records Exam Limitations: no limitations Vital Signs & Intake/Output Vital Signs & Intake/Output Vital Signs Date Time Temp Pulse Resp B/P Pulse O2 O2 Flow FiO2 Ox Delivery Rate 07/04 1253 96.5 81 20 123/58 99 Nasal 2.0L Cannula 07/04 1155 92 20 123/65 97 Nasal 2.0L Cannula 07/04 1000 98 Nasal 2.0L Cannula 07/04 0956 96.4 82 20 134/67 96 Nasal 2.0L Cannula Allergies Coded Allergies: No Known Allergies (06/23/16) Reconcile Medications Allopurinol 100 MG TABLET 1 TAB PO DAILY GOUT Apixaban (Eliquis) 2.5 MG TABLET 1 TAB PO BID BLOOD THINNER (Reported) Budesonide/Formoterol Fumarate (Symbicort 160-4.5 Mcg Inhaler) 160 MCG-4.5 MCG/ ACTUATION HFA.AER.AD 2 PUF INH BID BREATHING PROBLEMS (Reported) Carvedilol (Coreg) 12.5 MG TABLET 1 TAB PO BID HTN Cyanocobalamin/FA/Pyridoxine (Folbic Tablet) 1 EACH TABLET 1 TAB PO DAILY SUPPLEMENT (Reported) Esomeprazole (Nexium) 40 MG CAPSULE.DR 1 CAP PO BID GI (Reported) Furosemide (Lasix) 40 MG TABLET 1 TAB PO BID EDEMA Levothyroxine Sodium 25 MCG TABLET 1 TAB PO DAILY AC THYROID Oxycodone HCl/Acetaminophen (Percocet 5-325 MG Tablet) 5 MG-325 MG TABLET 1-2 TAB PO Q4-6 PRN PAIN Polyethylene Glycol 3350 (Clearlax) 17 GRAM/DOSE POWDER 1 CAP PO DAILY GI ( Reported) Prednisone 5 MG TABLET GOUT (Reported) Sennosides/Docusate Sodium (Senna S Tablet) 8.6 MG-50 MG TABLET 2 TAB PO QPM CONSTIPATION (Reported) Simvastatin (Zocor*) 20 MG TABLET 1 TAB PO QPM CHOLESTEROL (Reported) Core Measure Meds Pre-Hospital coumadin Triage Note: PT BIBA FROM [facility] FOR C/O CHEST PAIN SINCE 729 THIS AM. PT ALSO C/O SOB WITH WALKING THIS AM. PT RECEIVED 2 SL NITRO BY EMS WITH RELIEF. PT ARRIVES A/OX3. CHANGED INTO GOWN, PLACED ON MONITOR, EKG IN PROGRESS. AWAITING EVAL. Triage Nurses Notes Reviewed? yes HPI: This is an 85-year-old male resident of [facility] with past medical history significant for CAD status post 7 stents, A. fib on Eliquis, status post pacemaker/defibrilator placement, heart failure with preserved ejection fraction (40-45%), TIA, gout, prostate cancer, lung cancer status post right lobe resection, skin cancer status post resection, COPD, hypertension, hyperlipidemia , OA, hypothyroidism, who presents with chief complaint of shortness of breath, chest pressure and dizziness. Patient states that this a.m. around 7:30 while eating breakfast experienced some dizziness and lightheadedness. Subsequently he went to the bathroom and between leaving the toilet and getting back to his room he experienced dizziness, worsening shortness of breath, and left-sided chest pressure. Per patient's description, the pressure was getting worse as he was wheelchair-ing himself back to his room. He denies any headache, nausea, vomiting, diarrhea, loss of vision, slurring speech, or weakness. Of note, patient is unsure if he is receiving all his routine medications at [facility] [place]. He states that his Symbicort was not on his list and is not sure what other medicationshe may or may not be getting. Subsequently EMS was called, patient was given 2 nitroglycerin and he felt better. At the present time, patient denies any chest pain, shortness of breath or dizziness. (PHYLLIS CARRERA,OSMANY) Aspirin Today: no aspirin today, allergic Associated Symptoms: dizziness, shortness of breath, weakness (BEATRIZ CARRERA,MARTIN) Past History Travel History Traveled to [place] past 21 day No Medical History Any Pertinent Medical History? see below for history Neurological: STROKE EENT: cataracts Cardiovascular: AFIB, CHF, VT, PACEMAKER, DEFIBRILAT HTN, HIGHCHOLESTEROL STEN Respiratory: LUNG CA Gastrointestinal: GERD Hepatic: NONE Renal: ? 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 SISTER (CAD). Hx Contributory? No (OSMANY FERGUSON MD) Review of Systems Review of Systems Constitutional: Reports: chills, weakness. Denies: diaphoresis, fever, malaise. EENTM: Denies: blurred vision, double vision. Respiratory: Reports: short of breath. Denies: cough, sputum production, wheezing. Cardiovascular: Reports: chest pain, edema, peripheral edema. Denies: orthopena, palpitations, syncope. GI: Reports: no symptoms. Genitourinary: Reports: no symptoms. Musculoskeletal: Reports: no symptoms. Skin: Reports: no symptoms. (OSMANY FERGUSON MD) Review of Systems Neurological/Psychological: Reports: see HPI. Hematologic/Endocrine: Reports: no symptoms. Immunologic/Allergic: Reports: no symptoms. All Other Systems: Reviewed and Negative (MARITN HENDERSON MD) Physical Exam Physical Exam General Appearance: well developed/nourished, no apparent distress, alert, awake , comfortable Head: atraumatic, normal appearance Eyes: Bilateral: normal appearance, PERRL, EOMI. Ears, Nose, Throat: normal pharynx, normal ENT inspection Neck: supple, full range of motion Respiratory: normal breath sounds, chest non-tender, no respiratory distress, quiet respiration, lungs clear Cardiovascular: irregularly irregular Gastrointestinal: normal bowel sounds, soft, non-tender Extremities: pedal edema Core Measures ACS in differential dx? 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 Skin: intact, normal color Lymphatic: no anterior cervical angelita (HIPONA ,MARTIN) Progress Differential Diagnosis: atrial fibrillation, CHF/pulm edema, unstable angina Plan of Care: Orders Procedure Date/time Status EKG 07/06 0600 Active MAGNESIUM 07/05 06 Active CBC WITHOUT DIFFERENTIAL 07/05 0600 Active BASIC ELECTROLYTES PLUS BUN&CR 07/05 0600 Active EKG 07/05 0600 Active CHF Diet 07/04 L Active TROPONIN LEVEL 07/04 2300 Active EKG 07/04 2300 Active TROPONIN LEVEL 07/04 1700 Active EKG 07/04 1700 Active LOWER RESPIRATORY CULTURE 07/04 1304 Active URINALYSIS 07/04 1304 Active Pathway - chart 07/04 1239 Active Code Status 07/04 1239 Active Patient Data 07/04 1146 Active OXYGEN SETUP (GEN) 07/04 1108 Active Saline Lock 07/04 1108 Active Admit to inpatient 07/04 1108 Active Vital Signs 07/04 1108 Active Activity/Ambulation 07/04 1108 Active Code Status 07/04 1108 Complete Intake & Output 07/04 1028 Active TROPONIN LEVEL 07/04 0952 Complete MAGNESIUM 07/04 0952 Complete COMPREHENSIVE METABOLIC PANEL 07/04 0952 Complete CBC WITHOUT DIFFERENTIAL 07/04 0952 Complete B-TYPE NATRIURETIC PEP (BNP) 07/04 0952 Complete EKG 07/04 0943 Active House Staff 07/04 UNK Active Weight 07/04 UNK Active VTE Mechanical Prophylaxis 07/04 UNK Active Vital Signs 07/04 UNK Active MISTAKE 07/04 UNK Active Intake & Output 07/04 UNK Active Current Medications Sig/Jaswinder Start time Last Medication Dose Stop Time Status Admin Polyethylene Glycol 17 GM DAILY 07/05 1000 AC (Miralax) Levothyroxine Sodium 0.025 MG DAILY AC 07/05 0700 AC (Synthroid) Omeprazole 40 MG BID 07/04 2200 AC (Prilosec) Senna/Docusate Sodium 2 TAB QPM 07/04 2200 AC (Senokot S) Atorvastatin Calcium 10 MG 1700 07/04 1700 AC (Lipitor) Furosemide 40 MG 7:30 AM, & 4:30 PM 07/04 1630 AC (Lasix) Acetaminophen 650 MG Q6P PRN 07/04 1245 AC (Tylenol) Oxycodone/ 1 TAB Q6P PRN 07/04 1245 AC Acetaminophen (Percocet) Prednisone 5 MG DAILY 07/04 1236 AC Apixaban 2.5 MG BID 07/04 1235 AC (Eliquis) Budesonide/ 2 PUF BID 07/04 1235 AC Formoterol Fumarate (Symbicort) Carvedilol 12.5 MG BID 07/04 1235 AC (Coreg) Allopurinol 100 MG DAILY 07/04 1234 AC (Zyloprim) Laboratory Tests 07/04/16 1000: Anion Gap 11, Estimated GFR 36 L, BUN/Creatinine Ratio 19.4, Glucose 155 H, Calcium 9.6, Magnesium 1.9, Total Bilirubin 0.6, AST 29, ALT 35, Alkaline Phosphatase 91, Troponin I 0.12 *H, Ymh-T-Usozasgowjp Pept 5590 H, Total Protein 6.2 L, Albumin 3.2 L, Globulin 3.0, Albumin/Globulin Ratio 1.1, CBC w Diff NO MAN DIFF REQ, RBC 3.25 L, MCV 93.9, MCH 31.0, RDW 16.3 H, MPV 8.2, Gran % 80.0 H, Lymphocytes % 12.4 L, Monocytes % 6.6, Eosinophils % 0.7, Basophils % 0.3, Absolute Granulocytes 8.9 H, Absolute Lymphocytes 1.4, Absolute Monocytes 0.7 H, Absolute Eosinophils 0.1, Absolute Basophils 0, PUBS MCHC 33.0 Microbiology 07/04 1304 LOWER RESP: Respiratory Culture - ORD 07/04 1304 LOWER RESP: Gram Stain - ORD Initial ED EKG: AFIB, pacemaker rhythm (PHYLLIS CARRERA,OSMANY) Diagnostic Imaging: Viewed by Me: Radiology Read. Discussed w/RAD: Radiology Read. CXR Impression: Limited due to low lung volumes. New bibasilar opacities could reflect pulmonary edema with small effusions versus early consolidation/ atelectasis. (BEATRIZ CARRERA,MARTIN) Departure Departure Disposition: STILL A PATIENT Condition: Stable Referrals: ERINN CARRERA,DOUGLAS Bustamante (PCP/Family) Departure Forms: Customer Survey General Discharge Information Admission Note Spoke With: ZACHARY CARRERA,MELITON Documentation of Exam: Documentation of any treatments & extenuating circumstances including Concerns Regarding Discharge (functional status, medication knowledge or non-compliance, living conditions, etc.) that warrant an admission rather than observation: [IV diuresis, chest pressure, cardiac monitoring and work up] (PHYLLIS CARRERA,OSMANY) Departure Time of Disposition: 999 Clinical Impression Primary Impression: CHF (congestive heart failure) Qualifiers: Congestive heart failure type: unspecified congestive heart failure type Congestive heart failure chronicity: acute on chronic Qualified Code: I50.9 - Heart failure, unspecified Secondary Impressions: Chest pain syndrome, Elevated troponin Resident Co-Sign Statement Statement: ED Attending supervision documentation- x I saw and evaluated the patient. I have also reviewed all the pertinent lab results and diagnostic results. I agree with the findings and the plan of care as documented in the Resident's documentation. [] I have reviewed the ED Record and agree with the Resident's documentation. [] Additions or exceptions (if any) to the Resident's note and plan are summarized below: [] (MARTIN HENDERSON MD) Critical Care Note Critical Care Note Critical Care Time: non-applicable (MARTIN HENDERSON MD)
[2016-07-04 10:20] LABS: ABSOLUTE BASOPHIL COUNT 0 /CUMM (0.0-0.2); ABSOLUTE EOSINOPHIL COUNT 0.1 /CUMM (0.0-0.7); ABSOLUTE GRANULOCYTE CT 8.9 /CUMM (1.4-6.5); ABSOLUTE LYMPH COUNT 1.4 /CUMM (1.2-3.4); ABSOLUTE MONOCYTE COUNT 0.7 /CUMM (0.10-0.60); BASOPHIL % 0.3 % (0.0-2.0); EOSINOPHIL % 0.7 % (0-5); HEMATOCRIT 30.5 % (42-52); MEAN CORPUSCULAR VOLUME 93.9 FL (80.0-94.0); MEAN PLATELET VOLUME 8.2 FL (7.4-10.4); RBC DISTRIBUTION WIDTH 16.3 % (11.5-14.5); RED BLOOD CELL CT 3.25 /CUMM (4.70-6.10); WHITE BLOOD CELL COUNT 11.1 /CUMM (4.8-10.8)
--- NOTE | 2016-07-04 10:28 | NUR ---
PORT CXR IN PROGRESS.
--- NOTE | 2016-07-04 10:49 | RADIOLOGY REPORT ---
EXAMINATION: XR PORTABLE CHEST CLINICAL INFORMATION: 85-year-old man with chest pain and shortness of breath. COMPARISON: 06/29/2016 chest radiograph TECHNIQUE: Portable AP view of the chest was obtained. FINDINGS: Lung volumes are quite low. There is patchy new reticulonodular airspace opacity at both lung bases that could reflect early pulmonary edema versus atelectasis/pneumonia. Moderate cardiomegaly post left sided 3-lead pacemaker placement is unchanged. There may be small bilateral effusions. IMPRESSION: Limited due to low lung volumes. New bibasilar opacities could reflect pulmonary edema with small effusions versus early consolidation/atelectasis.
--- NOTE | 2016-07-04 10:55 | NUR ---
CRITICAL TEST RESULTS [id number] HESHAM CARLOS T SR 85 M TESTS AND RESULTS: TROPONIN 0.12 Results received and read back by: HORTENCIA BLANCAS Results received date and time: 07/04/16 1055 The following provider was notified of the results, and read the results back: DR HENDERSON Notified date and time: 07/04/16 at 1055
--- NOTE | 2016-07-04 10:58 | NUR ---
DR HENDERSON IN TO [facility].
[2016-07-04 11:25] LABS: PLATELET COUNT 373 /CUMM (130-400)
--- NOTE | 2016-07-04 11:31 | NUR ---
PLAN IS FOR ADMISSION. OFFERED PT LUNCH, DECLINES AT THIS TIME.
--- NOTE | 2016-07-04 12:05 | NUR ---
MEDICATED PER EMAR. HOUSESTAFF IN FOR EVAL.
--- NOTE | 2016-07-04 12:39 | NUR ---
BED 189-2
--- NOTE | 2016-07-04 12:50 | History & Physical ---
REBECCA CARRERA,LOAN 07/04/16 1249: General Information and HPI MD Statement: I have seen and personally examined HESHAM CARLOS SR and documented this H&P. The patient is a 85 year old M who presented with a patient stated chief complaint of [sudden onset chest pain associated with dizziness and sob]. Source of Information: patient, family, old records Exam Limitations: no limitations History of Present Illness: This is 85 year-old gentleman with past medical history of CAD s/p status post 7 stents, A. 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 As per the patient around 7:30 AM while he was having his breakfast he felt funny in his chest and decided to go to his room for the rest. While walking to the prone patient went to move bowel, and after bowel movement patient noted sudden onset left-sided chest pain 8/10, nonradiating, felt like someone is squeezing his chest with associated dizziness. With the help of walker patient walked down to his room. But his chest pain persisted and he called for help. On nursing staff on arrival patient continued to have chest pain and complain of mild shortness of breath. EMS called immediately, and in route to hospital patient decided to nitroglycerin sublingual spray with mild chest pain improvement (6/10). On arrival to ER probably after 2 hours of symptom onset patient chest pain completely resolved with nausea she rated shortness of breath or dizziness. On exam patient denied any chest pain, shortness of breath, palpitations, dizziness ,n/v/d, abdominal pain, cough, fever, chills or urinary symptoms. In ER patient noted having mildly elevated troponin of 0.12 (previous troponin was 0.16 upon discharge, elevated proBNP of 5590 and creatinine of 1.8 (baseline creatinine ranges 1.6-1.8). Patient received 1 dose of IV Lasix in ER. Allergies/Medications Allergies: Coded Allergies: No Known Allergies (06/23/16) Home Med list Allopurinol 100 MG TABLET 1 TAB PO DAILY GOUT Apixaban (Eliquis) 2.5 MG TABLET 1 TAB PO BID BLOOD THINNER (Reported) Budesonide/Formoterol Fumarate (Symbicort 160-4.5 Mcg Inhaler) 160 MCG-4.5 MCG/ ACTUATION HFA.AER.AD 2 PUF INH BID BREATHING PROBLEMS (Reported) Carvedilol (Coreg) 12.5 MG TABLET 1 TAB PO BID HTN Cyanocobalamin/FA/Pyridoxine (Folbic Tablet) 1 EACH TABLET 1 TAB PO DAILY SUPPLEMENT (Reported) Esomeprazole (Nexium) 40 MG CAPSULE.DR 1 CAP PO BID GI (Reported) Furosemide (Lasix) 40 MG TABLET 1 TAB PO BID EDEMA Levothyroxine Sodium 25 MCG TABLET 1 TAB PO DAILY AC THYROID Oxycodone HCl/Acetaminophen (Percocet 5-325 MG Tablet) 5 MG-325 MG TABLET 1-2 TAB PO Q4-6 PRN PAIN Polyethylene Glycol 3350 (Clearlax) 17 GRAM/DOSE POWDER 1 CAP PO DAILY GI ( Reported) Prednisone 5 MG TABLET GOUT (Reported) Sennosides/Docusate Sodium (Senna S Tablet) 8.6 MG-50 MG TABLET 2 TAB PO QPM CONSTIPATION (Reported) Simvastatin (Zocor*) 20 MG TABLET 1 TAB PO QPM CHOLESTEROL (Reported) Compliance With Home Meds: FAIR Past History Travel History Traveled to [place] past 21 day No Medical History Neurological: STROKE EENT: cataracts Cardiovascular: AFIB, CHF, hypertension, hyperlipidemia, myocardial infarction Respiratory: NONE Gastrointestinal: GERD Hepatic: NONE Renal: ? 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 SISTER (CAD). Psychosocial History Services at Home: None Smoking Status: Former Smoker ETOH Use: denies use Illicit Drug Use: denies illicit drug use Functional Ability ADLs Independent: dressing, eating, toileting, bathing. Ambulation: independent, walker, non-ambulatory IADLs Independent: shopping, housework, finances, food prep, telephone, transportation , medication admin. Review of Systems Review of Systems Constitutional: Reports: see HPI, weakness. Denies: chills, fever. EENTM: Denies: visual changes. Cardiovascular: Reports: chest pain, edema, peripheral edema. Denies: orthopena, palpitations, syncope. Respiratory: Denies: cough, short of breath, sputum production, wheezing. GI: Denies: abdominal pain, diarrhea, nausea, vomiting. Genitourinary: Denies: dysuria. Musculoskeletal: Denies: back pain. Skin: Denies: rash. Neurological/Psychological: Denies: confusion, depressed. Exam & Diagnostic Data Last 24 Hrs of Vital Signs/I&O Vital Signs Date Time Temp Pulse Resp B/P Pulse O2 O2 Flow FiO2 Ox Delivery Rate 07/04 1253 96.5 81 20 123/58 99 Nasal 2.0L Cannula 07/04 1155 92 20 123/65 97 Nasal 2.0L Cannula 07/04 1000 98 Nasal 2.0L Cannula 07/04 0956 96.4 82 20 134/67 96 Nasal 2.0L Cannula Intake & Output 07/04 1600 /04 0800 07/04 0000 Intake Total Output Total 200 Balance -200 Output, Urine 200 Patient 189 lb Weight Physical Exam General Appearance Alert, Oriented X3, Cooperative, No Acute Distress Skin No Rashes HEENT Atraumatic, PERRLA, EOMI, Mucous Membr. moist/pink Neck Supple, No JVD Lymphatic Cervical nl Cardiovascular Normal S1, Normal S2, No Murmurs, irregular Lungs Clear to Auscultation, Normal Air Movement Abdomen Normal Bowel Sounds, Soft, No Tenderness Neurological Normal Speech, Strength at 5/5 X4 Ext, Normal Tone, Sensation Intact, Cranial Nerves 3-12 NL Extremities Normal Pulses, bilateral 2-3+ pitting pedal edema extending up to thigh Last 24 Hrs of Labs/Pro: Laboratory Tests 07/04/16 1000: Anion Gap 11, Estimated GFR 36 L, BUN/Creatinine Ratio 19.4, Glucose 155 H, Calcium 9.6, Magnesium 1.9, Total Bilirubin 0.6, AST 29, ALT 35, Alkaline Phosphatase 91, Troponin I 0.12 *H, Wjr-Y-Dyqknlaosrc Pept 5590 H, Total Protein 6.2 L, Albumin 3.2 L, Globulin 3.0, Albumin/Globulin Ratio 1.1, CBC w Diff NO MAN DIFF REQ, RBC 3.25 L, MCV 93.9, MCH 31.0, RDW 16.3 H, MPV 8.2, Gran % 80.0 H, Lymphocytes % 12.4 L, Monocytes % 6.6, Eosinophils % 0.7, Basophils % 0.3, Absolute Granulocytes 8.9 H, Absolute Lymphocytes 1.4, Absolute Monocytes 0.7 H, Absolute Eosinophils 0.1, Absolute Basophils 0, PUBS MCHC 33.0 Microbiology 07/04 1304 LOWER RESP: Respiratory Culture - ORD 07/04 1304 LOWER RESP: Gram Stain - ORD Diagnostic Data EKG Results Noted ventricular paced rhythm at rate of 100 with LBBB pattern CXR Results Lung volumes are quite low. There is patchy new reticulonodular airspace opacity at both lung bases that could reflect early pulmonary edema versus atelectasis/pneumonia. Moderate cardiomegaly post left sided 3-lead pacemaker placement is unchanged. There may be small bilateral effusions. Assessment/Plan Assessment: This is 85-year-old male with known history of CAD status post 7 stent placement , A. fib status post pacemaker and defibrillator placement a year ago, systolic heart failure (HFrEF) with EF of 40%, COPD, hypertension who was recently discharged from [facility] after treatment of community-acquired pneumonia and congestive heart failure was sent from [facility] after he developed acute onset left-sided chest pain squeezing in nature associated with dizziness and shortness of breath. His chest pain improved after 2 doses of nitroglycerin. On arrival patient noted chest pain free and his labs revealed troponin of 0.12 (baseline troponin 0.16 of week JANITOR HEAD) with elevated proBNP and significant bilateral lower extremity edema without any auscultatory signs of heart failure and absent elevated JVD admitted for further evaluation of chest pain. 1. Chest pain likely NSTEMI vs. demand ischemia Considering patient history of significant CAD and typical squeezing nature of chest pain which improved with 2 doses of nitroglycerin and elevated troponin of 0.12 patient needs to be admitted on telemetry floor for further evaluation of chest pain. - Rule out coronary plaque rupture with serial troponin and EKG - Patient is currently asymptomatic, and his troponin is not significantly elevated compared to the baseline of week ago. Would hold off on anticoagulation for now, and he weighs patient is on Eliquis - Patient had recent echo in June 2014 which revealed reduced left systolic function with EF of 40%, will hold off on repeating echo unless troponin bumps higher further - Continue beta tamiko and statin - Start baby aspirin 2. A. fib s/p pacemaker and defibrillator placement - Continue Coreg for rate control - Continue Eliquis for anticoagulation 3. Systolic heart failure - Noted significant bilateral lower extremity edema without any overt signs of pulmonary edema on clinical exam - Elevate legs - Start IV Lasix 40 twice a day - Monitor electrolytes - Strict RILEY's and daily weight 4. Leukocytosis - Patient had mild leukocytosis of 11,100 without no evidence of focal infection , (denies any productive cough, fever, chills, urinary burning or pain) chest x- ray revealed new patchy reticular nodular airspace opacity questionable for pneumonia versus atelectasis - Would hold off antibiotics considering recent treatment for community-acquired pneumonia and in absence of any signs of infection - Monitor CBCs in a.m. 5. Gout - Continue prednisone 5 mg daily and allopurinol 100 mg daily 6. Hypothyroidism - Continue levothyroxine 25 g daily 7. COPD - Stable - Would continue Symbicort - TRC 8. CKD stage III - Kidney function at baseline with creatinine of 1.8 - Monitor kidney function closely given IV diuresis 9. Anemia likely secondary to CKD - Monitor H&H 10. DVT prophylaxis On Eliquis 11. Pain management pathway As Ranked By This Provider Problem List: 1. CHEST PAIN 2. Coronary artery disease 3. CKD (chronic kidney disease) 4. CHF (congestive heart failure) Qualifiers Congestive heart failure type: unspecified congestive heart failure type Congestive heart failure chronicity: acute on chronic Qualified Code: I50.9 - Heart failure, unspecified Core Measures/Miscellaneous Acute Coronary Syndrome ACS Diagnosis: Yes Date of most recent Echo 06/17/16 Last Known EF % 40 JAM/ARB For EF <40% No No JAM/ARB d/t Renal Failure/Azotemia ASA W/I 24hr of admit Yes Beta-Tamiko W/I 24hrs Yes LDL assessed W/I 24 hrs Yes Currently on Statin Yes Cerebrovascular Accident CVA/TIA Diagnosis: No Congestive Heart Failure CHF Diagnosis: Yes Date of most recent Echo: 06/17/16 Last Known EF %: 40 JAM/ARB for EF <40%: No No JAM/ARB d/t: Renal Failure/Azotemia Venous Thromboembolism VTE Risk Factors: Age > 40 [facility] prophylaxis d/t: No contraindications No VTE Pharm Prophylaxis d/t: No contraindications VTE Diagnosis: No VTE Type: NONE VTE Confirmed by (Test): NONE Severe Sepsis Severe Sepsis Present: No Septic Shock Septic Shock Present: No Miscellaneous Documentation Attending Case Discussed With: FLAKO CARRERA,MARUICIO Primary Care Physician: JAYA PLASENCIA MD Patient sees these Specialists Cardiology Dr. Vidales Nephrology Albert Dowd MD Rheumatology Jaya Plasencia MD Level of Patient Care: Telemetry Consults Needed: Consulting Specialty: Cardiology Consulting Physician: Obey Vidales MD Reason for Consult: chest pain Resident Review Statement Resident Statement: examined this patient, discussed with manager of international, agreed with manager of international, discussed with family, reviewed EMR data (avail), discussed with nursing , reviewed images, amended to note Other Findings: see hpi ZACHARY CARRERA,[facility] 07/04/16 1712: Attending MD Review Statement Attending Statement Attending MD Statement: examined this patient, discuss w/resident/PA/BARREL CLEANER, agreed w/resident/PA/BARREL CLEANER, reviewed EMR data (avail), discussed with nursing, reviewed images, amended to note Attending Assessment/Plan: 85 y/o M iwth pmh sig for CAD s/p status post 7 stents, A. fib on eliquis s/p pacemaker defibrillator placement, HFrEF (ejection fraction 40-45%), TIA, gout on prednisone, lung cancer s/p right lobe resection, prostate cancer, hypothyroidism, osteoarthritis, s/p Mekel cell carcinoma resection (neck and eye lesion surgical dissection with negative setinel LN), COPD, hypertension, hyperlipidemia, multiple admissions to [facility] with a recent admission about a week ago for pneumonia and CHF who is now admitted with the experiencing chest pain. Patient was eating breakfast, went to use the bathroom and while using the bathroom for the bowel movement he developed chest pain which he describes as pressure. He felt dizzy and had some shortness of breath and felt like almost going to pass out. Ambulance was called and patient was brought to the hospital. He was given nitroglycerin spray in the ambulance and by the time he came into the hospital his pain was relieved. In the emergency room no significant EKG changes but he did have high troponins which has been high since his last admission. He also had a slightly higher BNP. Patient expressed the concerned saying that he thinks he was not receiving his Coreg as well as Symbicort in the [facility] although on the W-10 those medications were mentioned. Vital Signs Date Time Temp Pulse Resp B/P Pulse O2 O2 Flow FiO2 Ox Delivery Rate 07/04 1643 Nasal 2.0L Cannula 07/04 1425 98.6 82 16 110/47 92 Nasal 2.0L Cannula / 1350 96.0 81 20 110/56 96 Nasal 2.0L Cannula / 1310 96.5 81 20 123/58 /04 1253 96.5 81 20 123/58 99 Nasal 2.0L Cannula / 1155 92 20 123/65 97 Nasal 2.0L Cannula / 1000 98 Nasal 2.0L Cannula / 0956 96.4 82 20 134/67 96 Nasal 2.0L Cannula on exam; aox3 , and. cv; s1,s2, rrr he has a defibrillator and a pacemaker resp; clear abd; sodt, nt, bs+ ext; 2+ edema b/l Laboratory Tests 07/04 07/04 1657 1000 Chemistry Sodium (137 - 145 mmol/L) 140 Potassium (3.5 - 5.1 mmol/L) 3.6 Chloride (98 - 107 mmol/L) 95 L Carbon Dioxide (22 - 30 mmol/L) 34 H Anion Gap (5 - 16) 11 BUN (9 - 20 mg/dL) 35 H Creatinine (0.7 - 1.2 mg/dL) 1.8 H Estimated GFR (>60 ml/min) 36 L BUN/Creatinine Ratio (7 - 25 %) 19.4 Glucose (65 - 99 mg/dL) 155 H Calcium (8.4 - 10.2 mg/dL) 9.6 Magnesium (1.6 - 2.3 mg/dL) 1.9 Total Bilirubin (0.2 - 1.3 mg/dL) 0.6 AST (17 - 59 U/L) 29 ALT (21 - 72 U/L) 35 Alkaline Phosphatase (< 127 U/L) 91 Troponin I (<0.11 ng/ml) Pending 0.12 *H Fmy-V-Vzadsobyltz Pept (<125 pg/mL) 5590 H Total Protein (6.3 - 8.2 g/dL) 6.2 L Albumin (3.5 - 5.0 g/dL) 3.2 L Globulin (1.9 - 4.2 gm/dL) 3.0 Albumin/Globulin Ratio (1.1 - 2.2 %) 1.1 Hematology CBC w Diff NO MAN DIFF REQ WBC (4.8 - 10.8 /CUMM) 11.1 H RBC (4.70 - 6.10 /CUMM) 3.25 L Hgb (14.0 - 18.0 G/DL) 10.1 L Hct (42 - 52 %) 30.5 L MCV (80.0 - 94.0 FL) 93.9 MCH (27.0 - 31.0 PG) 31.0 RDW (11.5 - 14.5 %) 16.3 H Plt Count (130 - 400 /CUMM) 373 MPV (7.4 - 10.4 FL) 8.2 Gran % (42.2 - 75.2 %) 80.0 H Lymphocytes % (20.5 - 51.1 %) 12.4 L Monocytes % (1.7 - 9.3 %) 6.6 Eosinophils % (0 - 5 %) 0.7 Basophils % (0.0 - 2.0 %) 0.3 Absolute Granulocytes (1.4 - 6.5 /CUMM) 8.9 H Absolute Lymphocytes (1.2 - 3.4 /CUMM) 1.4 Absolute Monocytes (0.10 - 0.60 /CUMM) 0.7 H Absolute Eosinophils (0.0 - 0.7 /CUMM) 0.1 Absolute Basophils (0.0 - 0.2 /CUMM) 0 PUBS MCHC (33.0 - 37.0 G/DL) 33.0 EKG shows paced rhythm. CXR: IMPRESSION: Limited due to low lung volumes. New bibasilar opacities could reflect pulmonary edema with small effusions versus early consolidation/atelectasis. A/P; 85 y/o M iwth pmh sig for CAD s/p status post 7 stents, A. fib on eliquis s /p pacemaker defibrillator placement, HFrEF (ejection fraction 40-45%), TIA, gout on prednisone, lung cancer s/p right lobe resection, prostate cancer, hypothyroidism, osteoarthritis, s/p Mekel cell carcinoma resection (neck and eye lesion surgical dissection with negative setinel LN), COPD, hypertension, hyperlipidemia, multiple admissions to [facility] with a recent admission about a week ago for pneumonia and CHF who is admitted with chest pain with high troponins as well as fluid overload and lower extremity edema. Patient will be admitted to telemetry floor. Troponins will be trended. Patient be continued on his cardiac medications. He will be diuresed with IV Lasix with strict I's and O's as well as daily weights. Cardiology consult will be obtained. Will have to confirm from the [facility] if he was receiving his cardiac medications. DVT prophylaxis: Eliquis. Patient is a full code.
--- NOTE | 2016-07-04 13:10 | NUR ---
MEDICATED PER EMAR.
--- NOTE | 2016-07-04 13:14 | NUR ---
ATTEMPTED TO CALL REPORT, NURSE WILL CALL BACK.
--- NOTE | 2016-07-04 13:34 | NUR ---
HOUSE STAFF AT BEDSIDE FOR EVAL. REPORT GIVEN TO TELE NURSE ORIN.
--- NOTE | 2016-07-04 13:54 | NUR ---
PT TO FLOOR VIA STRETCHER WITH THIS RN ON MONITOR. ALL PAPERWORK AND BELONGINGS SENT. CLINICAL STATUS UNCHANGED. FAMILY AT BEDSIDE.
[2016-07-04 14:25] VITALS: BP 110/47
--- NOTE | 2016-07-04 17:12 | NUR ---
PT HAD 4 BEAT RUN OF VTACH AND 2- 3BEAT RUNS OF VTACH. INFORMED TELEHEALTH CASE MANAGER JOSE. POTASSIUM 3.4. WILL CONT TO MONITOR. PT DENIES CARDIAC COMPLAINTS, PAIN OR SOB.
--- NOTE | 2016-07-04 17:16 | Admission Certification ---
Admission Certification Certification Statement - As attending physician, I certify that at the time of - admission, based on clinical presentation, severity of - symptoms, need for further diagnostic testing and - therapeutic interventions, and risk of adverse outcomes - without in-hospital treatment, in my clinical assessment, - this patient requires an acute hospital stay for a minimum - of two nights or longer. I have also considered psychsocial - factors such as support system, advanced age, financial - issues, cognitive issues, and failed out-patient treatments, - past re-admission history, safety of patient, and lack of - compliance as applicable. Specific rationale supporting this admission is: 85-year-old male with significant cardiac history admitted with chest pain with positive troponins and fluid overload. Needs 1 and monitoring, cardiology monitoring and IV diuresis.
--- NOTE | 2016-07-04 19:06 | Cons- Cardiology ---
General Information and HPI Consulting Request Date of Consult: 07/04/16 Requested By: MAURICIO ARRIOLA MD Reason for Consult: Chest pain with minimal troponin elevation Source of Information: patient, old records History of Present Illness: 85 year old male known to me. Just discharged from [place] to [facility] after admssion for LE edema. Admitted today from [facility] via the ER with complaints of several hours of chest discomfort with associated dyspnea ultimately relieved by TNG SL. Asymptomatic at the present time. NO other recent episodes of chest discomfort noted. Allergies/Medications Allergies: Coded Allergies: No Known Allergies (06/23/16) Home Med List: Allopurinol 100 MG TABLET 1 TAB PO DAILY GOUT Apixaban (Eliquis) 2.5 MG TABLET 1 TAB PO BID BLOOD THINNER (Reported) Budesonide/Formoterol Fumarate (Symbicort 160-4.5 Mcg Inhaler) 160 MCG-4.5 MCG/ ACTUATION HFA.AER.AD 2 PUF INH BID BREATHING PROBLEMS (Reported) Carvedilol (Coreg) 12.5 MG TABLET 1 TAB PO BID HTN Cyanocobalamin/FA/Pyridoxine (Folbic Tablet) 1 EACH TABLET 1 TAB PO DAILY SUPPLEMENT (Reported) Esomeprazole (Nexium) 40 MG CAPSULE.DR 1 CAP PO BID GI (Reported) Furosemide (Lasix) 40 MG TABLET 1 TAB PO BID EDEMA Levothyroxine Sodium 25 MCG TABLET 1 TAB PO DAILY AC THYROID Oxycodone HCl/Acetaminophen (Percocet 5-325 MG Tablet) 5 MG-325 MG TABLET 1-2 TAB PO Q4-6 PRN PAIN Polyethylene Glycol 3350 (Clearlax) 17 GRAM/DOSE POWDER 1 CAP PO DAILY GI ( Reported) Prednisone 5 MG TABLET GOUT (Reported) Sennosides/Docusate Sodium (Senna S Tablet) 8.6 MG-50 MG TABLET 2 TAB PO QPM CONSTIPATION (Reported) Simvastatin (Zocor*) 20 MG TABLET 1 TAB PO QPM CHOLESTEROL (Reported) Current Medications: Current Medications Sig/Jaswinder Start time Last Medication Dose Route Stop Time Status Admin Acetaminophen 650 MG Q6P PRN 07/04 1245 AC PO Albuterol Sulfate 3 ML BID 07/04 2200 AC INH Allopurinol 100 MG DAILY 07/04 1234 AC / PO 1310 Apixaban 2.5 MG BID 07/04 1235 AC 07/04 PO 1310 Aspirin Buffered 81 MG DAILY 07/04 1351 AC / PO 1630 Atorvastatin Calcium 10 MG 1700 07/04 1700 AC 07/04 PO 1630 Budesonide/ 2 PUF BID 07/04 1235 AC 07/04 Formoterol Fumarate INH 1310 Carvedilol 12.5 MG BID 07/04 1235 AC 07/04 PO 1310 Furosemide 40 MG 7:30 AM, & 4:30 PM 07/04 1630 AC 07/04 IV 1630 Furosemide 0 .STK-MED ONE 07/04 1155 DC IV Furosemide 40 MG ONCE ONE 07/04 1145 DC 07/04 IV 07/04 1146 1205 Levothyroxine Sodium 0.025 MG DAILY AC 07/05 0700 AC PO Nitroglycerin 0 .STK-MED ONE 07/04 1155 DC TOP Nitroglycerin 1 GM ONCE ONE 07/04 1145 DC 07/04 TOP 07/04 1146 1205 Omeprazole 40 MG BID 07/04 2200 AC PO Oxycodone/ 1 TAB Q6P PRN 07/04 1245 AC Acetaminophen PO Polyethylene Glycol 17 GM DAILY 07/05 1000 AC PO Potassium Chloride 40 MEQ ONCE ONE 07/04 1245 DC 03 PO 04 1246 1310 Prednisone 5 MG DAILY 07/04 1236 AC 07/04 PO 1310 Senna/Docusate Sodium 2 TAB QPM 07/04 2200 AC PO Past History Travel History Traveled to [place] past 21 day No Medical History Neurological: STROKE EENT: cataracts Cardiovascular: AFIB, CHF, hypertension, hyperlipidemia, myocardial infarction Respiratory: NONE Gastrointestinal: GERD Hepatic: NONE Renal: ? 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 SISTER (CAD). Psychosocial History Where Do You Live? [facility] Facility Services at Home: None Smoking Status: Former Smoker ETOH Use: denies use Illicit Drug Use: denies illicit drug use Functional Ability ADLs Independent: dressing, eating, toileting, bathing. Ambulation: independent, walker, non-ambulatory IADLs Independent: shopping, housework, finances, food prep, telephone, transportation , medication admin. Exam & Diagnostic Data Vital Signs and I&O Vital Signs Date Time Temp Pulse Resp B/P Pulse O2 O2 Flow FiO2 Ox Delivery Rate 07/04 1711 Nasal 2.0L Cannula 07/04 1643 Nasal 2.0L Cannula 07/04 1600 Nasal 2.0L Cannula 07/04 1425 98.6 82 16 110/47 92 Nasal 2.0L Cannula 07/04 1350 96.0 81 20 110/56 96 Nasal 2.0L Cannula 07/04 1310 96.5 81 20 123/58 0304 1253 96.5 81 20 123/58 99 Nasal 2.0L Cannula 07/04 1155 92 20 123/65 97 Nasal 2.0L Cannula 07/04 1000 98 Nasal 2.0L Cannula 07/04 0956 96.4 82 20 134/67 96 Nasal 2.0L Cannula Intake & Output 07/04 1600 07/04 0800 07/04 0000 07/03 1600 07/03 0800 07/03 0000 Intake Total Output Total 200 Balance -200 Output, Urine 200 Patient 189 lb Weight Physical Exam: General Appearance Alert, Oriented X3, Cooperative, No Acute Distress Skin No Rashes HEENT Atraumatic, PERRLA, EOMI, Mucous Membr. moist/pink Neck Supple, No JVD Lymphatic Cervical nl Cardiovascular Normal S1, Normal S2, No Murmurs, irregular, 2/6 systolc murmur Lungs Clear to Auscultation, Normal Air Movement Abdomen Normal Bowel Sounds, Soft, No Tenderness Neurological Normal Speech, Strength at 5/5 X4 Ext, Normal Tone, Sensation Intact, Cranial Nerves 3-12 NL Extremities Normal Pulses, bilateral 2-3+ pitting pedal edema extending up to thigh Labs/Pro Results: Laboratory Tests 07/04 07/04 1800 1657 Chemistry Troponin I (<0.11 ng/ml) 0.11 *H Urines Urine Color (YEL,AMB,STR) YEL Urine Clarity (CLEAR) CLEAR Urine pH (5.0 - 8.0) 6.5 Ur Specific [place] (1.001 - 1.035) 1.010 Urine Protein (NEG,<30 MG/DL) NEG Urine Ketones (NEG) NEG Urine Nitrite (NEG) NEG Urine Bilirubin (NEG) NEG Urine Urobilinogen (0.1 - 1.0 EU/dl) 0.2 Ur Leukocyte Esterase (NEG) NEG Ur Microscopic EXAM NOT REQUIRED Urine Hemoglobin (NEG) NEG Urine Glucose (N MG/DL) NEG 07/04 1000 Chemistry Sodium (137 - 145 mmol/L) 140 Potassium (3.5 - 5.1 mmol/L) 3.6 Chloride (98 - 107 mmol/L) 95 L Carbon Dioxide (22 - 30 mmol/L) 34 H Anion Gap (5 - 16) 11 BUN (9 - 20 mg/dL) 35 H Creatinine (0.7 - 1.2 mg/dL) 1.8 H Estimated GFR (>60 ml/min) 36 L BUN/Creatinine Ratio (7 - 25 %) 19.4 Glucose (65 - 99 mg/dL) 155 H Calcium (8.4 - 10.2 mg/dL) 9.6 Magnesium (1.6 - 2.3 mg/dL) 1.9 Total Bilirubin (0.2 - 1.3 mg/dL) 0.6 AST (17 - 59 U/L) 29 ALT (21 - 72 U/L) 35 Alkaline Phosphatase (< 127 U/L) 91 Troponin I (<0.11 ng/ml) 0.12 *H [id number] Pept (<125 pg/mL) 5590 H Total Protein (6.3 - 8.2 g/dL) 6.2 L Albumin (3.5 - 5.0 g/dL) 3.2 L Globulin (1.9 - 4.2 gm/dL) 3.0 Albumin/Globulin Ratio (1.1 - 2.2 %) 1.1 Hematology CBC w Diff NO MAN DIFF REQ WBC (4.8 - 10.8 /CUMM) 11.1 H RBC (4.70 - 6.10 /CUMM) 3.25 L Hgb (14.0 - 18.0 G/DL) 10.1 L Hct (42 - 52 %) 30.5 L MCV (80.0 - 94.0 FL) 93.9 MCH (27.0 - 31.0 PG) 31.0 RDW (11.5 - 14.5 %) 16.3 H Plt Count (130 - 400 /CUMM) 373 MPV (7.4 - 10.4 FL) 8.2 Gran % (42.2 - 75.2 %) 80.0 H Lymphocytes % (20.5 - 51.1 %) 12.4 L Monocytes % (1.7 - 9.3 %) 6.6 Eosinophils % (0 - 5 %) 0.7 Basophils % (0.0 - 2.0 %) 0.3 Absolute Granulocytes (1.4 - 6.5 /CUMM) 8.9 H Absolute Lymphocytes (1.2 - 3.4 /CUMM) 1.4 Absolute Monocytes (0.10 - 0.60 /CUMM) 0.7 H Absolute Eosinophils (0.0 - 0.7 /CUMM) 0.1 Absolute Basophils (0.0 - 0.2 /CUMM) 0 PUBS MCHC (33.0 - 37.0 G/DL) 33.0 Diagnostic Data EKG Results Paced without change CXR Results IMPRESSION: Limited due to low lung volumes. New bibasilar opacities could reflect pulmonary edema with small effusions versus early consolidation/atelectasis. Assessment/Plan Assessment/Plan Assessment: 1. CHest pain; rule out ACS; minimallly elevated troponin 2. History of CAD 3. Chronic renal insufficiency 4. Anemia 5. Elevated proBNP 6. Kasey cell tumor; s/p recent surgery. 7. LE edema / venous insufficiency. Recommendations: - Serial troponin until decreasing - ECG in AM - No need to repeat echocardiogram at the present time. - Continue diuresis with IV lasix and close monitoring of I/Os and labs - Persantine nuclear stress test Wednesday; keep the patient NPO after midnight Wednesday. Consult Acknowledgment - Thank you for your consult request.
[2016-07-04 22:00] VITALS: BP 126/66
[2016-07-05 07:50] VITALS: BP 142/74
--- NOTE | 2016-07-05 07:54 | CT SCAN REPORT ---
EXAMINATION: CT HEAD WITHOUT CONTRAST CLINICAL INFORMATION: Stroke protocol left-sided weakness COMPARISON: April 23, 2016 TECHNIQUE: Contiguous axial imaging was performed from the skull base to vertex without intravenous administration of contrast. DLP: 600.71 mGy-cm FINDINGS: There is no evidence of acute intracranial hemorrhage or territorial infarction. No abnormal mass effect or midline shift is seen. Haq to white matter differentiation is well preserved. 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 Vertebral artery calcifications are present. The ventricles are normal in size. There is no abnormal attenuation within the brain parenchyma. The osseous structures and soft tissues are normal. The mastoid air cells and visualized portions of the paranasal sinuses are well aerated. IMPRESSION: No acute intracranial pathology. Report called to Dr. Ramirez on July 05, 2016 at 7:45 AM.
--- NOTE | 2016-07-05 08:00 | NUR ---
AT 0715 PT C/O DIZZINESS, SOB, VSS AT THIS TIME, AT BEDSIDE TO EVALUATE. PT THEN BEGAN TO C/O NUMBNESS AND TINGLING IN L HAND/ARM AND DISPLAYING A DRIFT TO LUE. RAPID RESPONSE AND STROKE ALERT WERE CALLED. STAT CT ORDERED. SEE RAPID SHEET FOR FURTHER DETAILS. WILL CONTINUE TO MONITOR.
[2016-07-05 08:12] LABS: ABSOLUTE BASOPHIL COUNT 0 /CUMM (0.0-0.2); ABSOLUTE EOSINOPHIL COUNT 0.1 /CUMM (0.0-0.7); ABSOLUTE GRANULOCYTE CT 7.4 /CUMM (1.4-6.5); ABSOLUTE LYMPH COUNT 1.6 /CUMM (1.2-3.4); ABSOLUTE MONOCYTE COUNT 0.6 /CUMM (0.10-0.60); BASOPHIL % 0.4 % (0.0-2.0); EOSINOPHIL % 0.9 % (0-5); GRANULOCYTE % 76.5 % (42.2-75.2); HEMATOCRIT 28.6 % (42-52); MEAN CORPUSCULAR HGB 30.5 PG (27.0-31.0); MEAN CORPUSCULAR HGB CONC 32.3 G/DL (33.0-37.0); MEAN CORPUSCULAR VOLUME 94.4 FL (80.0-94.0); MEAN PLATELET VOLUME 8.5 FL (7.4-10.4); PLATELET COUNT 302 /CUMM (130-400); RBC DISTRIBUTION WIDTH 16.2 % (11.5-14.5); RED BLOOD CELL CT 3.02 /CUMM (4.70-6.10); WHITE BLOOD CELL COUNT 9.7 /CUMM (4.8-10.8)
--- NOTE | 2016-07-05 08:39 | PN- Housestaff ---
COMFORT CARRERA,MICHELE 07/05/16 0839: Subjective Follow-up For: Chest pain Atrial fibrillation Systolic CHF Leukocytosis Complaints: no complaints Tele-Events Since Last Visit: Paced rhythm, tachy to 120s. Subjective: Patient seen and examined at bedside this AM. He denies chest heaviness and any further episodes of weakness/neurological defecits. Review of Systems Constitutional: Denies: chills, fever, malaise. EENTM: Denies: visual changes, hearing changes, nasal congestion. Cardiovascular: Denies: chest pain, palpitations. Respiratory: Denies: cough, short of breath. Gastrointestinal: Denies: abdominal pain, nausea. Genitourinary: Denies: dysuria. Musculoskeletal: Denies: back pain. Neurological/Psychological: Denies: headache, numbness, paresthesia, pre-existing deficit, tingling. Hematologic/Endocrine: Denies: bleeding. Objective Last 24 Hrs of Vital Signs/I&O Vital Signs Date Time Temp Pulse Resp B/P Pulse O2 O2 Flow FiO2 Ox Delivery Rate 07/05 1123 97 Nasal 2.0L Cannula 07/05 0827 142/74 / 0750 97.6 84 20 142/74 98 Nasal 2.5L Cannula 07/05 0000 Nasal 2.0L Cannula / 2238 98.1 / 2200 79 18 126/66 98 Nasal 2.0L Cannula / 2055 129 126/66 03/04 1711 Nasal 2.0L Cannula / 1643 Nasal 2.0L Cannula 07/04 1600 Nasal 2.0L Cannula / 1425 98.6 82 16 110/47 92 Nasal 2.0L Cannula / 1350 96.0 81 20 110/56 96 Nasal 2.0L Cannula /04 1310 96.5 81 20 123/58 Intake & Output / 1600 07/05 0800 03/ 0000 Intake Total 490 Output Total 600 Balance -110 Intake, IV 10 Intake, Oral 480 Number 1 Bowel Movements Output, Urine 600 Patient 183 lb 190 lb Weight Physical Exam General Appearance: Alert, Oriented X3, Cooperative, No Acute Distress Skin: No Rashes HEENT: Atraumatic, PERRLA, EOMI, Mucous Membr. moist/pink Neck: Supple, No JVD Lymphatic: Cervical nl Cardiovascular: Normal S1, Normal S2 Lungs: Normal Air Movement Abdomen: Normal Bowel Sounds, Soft, No Tenderness Neurological: Normal Speech, Strength at 5/5 X4 Ext, Normal Tone, Cranial Nerves 3-12 NL Extremities: No Clubbing, No Cyanosis Vascular: Pulses Symmetrical Current Medications: Current Medications Sig/Jaswinder Start time Last Medication Dose Route Stop Time Status Admin Acetaminophen 650 MG Q6P PRN 07/04 1245 AC PO Albuterol Sulfate 3 ML BID 07/04 2200 AC INH Allopurinol 100 MG DAILY 07/04 1234 AC 07/05 PO 1020 Apixaban 2.5 MG BID 07/04 1235 AC 07/05 PO 1020 Aspirin Buffered 81 MG DAILY 07/04 1351 AC 07/05 PO 1020 Atorvastatin Calcium 80 MG 1700 07/05 1700 AC PO Atorvastatin Calcium 10 MG 1700 07/04 1700 DC 07/04 PO 1630 Budesonide/ 2 PUF BID 07/04 1235 AC 07/05 Formoterol Fumarate INH 1021 Carvedilol 12.5 MG BID 07/04 1235 AC 07/05 PO 0827 Furosemide 40 MG 7:30 AM, & 4:30 PM 07/04 1630 AC 07/05 IV 0824 Levothyroxine Sodium 0.025 MG DAILY AC 07/05 0700 AC 07/05 PO 0628 Omeprazole 40 MG BID 07/04 2200 AC 07/05 PO 1020 Oxycodone/ 1 TAB Q6P PRN 07/04 1245 AC Acetaminophen PO Patient Medication 1 UNIT ONE NR 07/05 1200 AC Teaching ED 07/05 1230 Polyethylene Glycol 17 GM DAILY 07/05 1000 AC 07/05 PO 1020 Potassium Chloride 40 MEQ ONCE ONE 07/04 1245 DC 07/04 PO 07/04 1246 1310 Prednisone 5 MG DAILY 07/04 1236 AC 07/05 PO 1020 Senna/Docusate Sodium 2 TAB QPM 07/04 2200 AC PO Last 24 Hrs of Lab/Pro Results Last 24 Hrs of Labs/Mics: Laboratory Tests 07/05/16 0658: Anion Gap 5, Estimated GFR 34 L, BUN/Creatinine Ratio 17.9, Magnesium 1.9, Troponin I 0.11 *H, CBC w Diff NO MAN DIFF REQ, RBC 3.02 L, MCV 94.4 H, MCH 30.5, RDW 16.2 H, MPV 8.5, Gran % 76.5 H, Lymphocytes % 16.3 L, Monocytes % 5.9, Eosinophils % 0.9, Basophils % 0.4, Absolute Granulocytes 7.4 H, Absolute Lymphocytes 1.6, Absolute Monocytes 0.6, Absolute Eosinophils 0.1, Absolute Basophils 0, PUBS MCHC 32.3 L 07/05/16 0600: Troponin I Cancelled 07/04/16 2320: Troponin I 0.10 07/04/16 1800: Urine Color YEL, Urine Clarity CLEAR, Urine pH 6.5, Ur Specific [place] 1.010, Urine Protein NEG, Urine Ketones NEG, Urine Nitrite NEG, Urine Bilirubin NEG, Urine Urobilinogen 0.2, Ur Leukocyte Esterase NEG, Ur Microscopic EXAM NOT REQUIRED, Urine Hemoglobin NEG, Urine Glucose NEG 07/04/16 1657: Troponin I 0.11 *H Microbiology 07/04 1304 LOWER RESP: Respiratory Culture - COLB 07/04 1304 LOWER RESP: Gram Stain - COLB Assessment/Plan Assessment: Mr. Ye is a pleasant 85-year-old male with known history of CAD status post 7 stent placement, A. fib status post pacemaker and defibrillator placement a year ago, systolic heart failure (HFrEF) with EF of 40%, COPD, hypertension who was recently discharged from [facility] after treatment of community- acquired pneumonia and congestive heart failure was sent from [facility] after he developed acute onset left-sided chest pain squeezing in nature associated with dizziness and shortness of breath. He is currently admitted to the telemetry floor and the following is the management: 1. Chest pain * Minimally elevated troponin * Serial troponins with ECG plateud at 0.[address]/T wave changes * Cardio consult appreciated * Likely demand ischemia * Echo ordered as per recommedations from Dr. Vidales, follow up results 2. TIA * Patient had rapid response this AM and neurology consult placed * Head CT negative * Sxs resolved/no current neuro deficits * Continue ASA, increase lipitor to 80 mg PO daily * Carotid doplper and echo pending, f/u results 3. Atrial fibrillation s/p PPM placement * Defibrillator interrogation for tomorrow * Cardio consult appreciated * Continue eliquis 2.5 mg PO BID (dose adjusted due to age and cre) * Continue coreg 4. Systolic CHF * Bilateral lower extremity edema without any overt signs of pulmonary edema on clinical exam * Elevate legs * Lasic 40 mg IV BID * Strict Is/Os, daily weights 5. Leukocytosis * Mild leukocytosis of 11,100 without evidence of focal infection (denies any productive cough, fever, chills, urinary burning or pain) * CXR revealed new patchy reticular nodular airspace opacity questionable for pneumonia versus atelectasis * Hold off Abx for now * Monitor CBC, monitor for fevers 6. COPD * Continue home inhalers * Home prednisone daily FULL CODE DVTP: Eliquis Mild pain pathway Problem List: 1. Chest pain syndrome 2. Dyspnea 3. Atrial fibrillation 4. CKD (chronic kidney disease) 5. Pneumonia 6. CHF (congestive heart failure) Pain Ratin Pain Location: n/a Pain Goal: Remain pain free Pain Plan: Per pain pathway Tomorrow's Labs & Rationales: CBC (Monitor for leukocytosis), BEP (worsening renal function) Consulting Request: Consulting Specialty: Cardiology Consulting Physician: Obey Vidales MD Reason for Consult: chest pain ZACHARY CARRERA,[facility] 07/05/16 1240: Attending MD Review Statement Attending Statement Attending MD Statement: examined this patient, discuss w/resident/PA/AUTO TIRE RECAPPER, agreed w/resident/PA/AUTO TIRE RECAPPER, reviewed EMR data (avail), discussed with nursing, discussed with case mgmt, reviewed images, amended to note Attending Assessment/Plan: Patient seen and examined, had a rapid response this am. Had an episode of left upper ext weakness. Also had rapid heart rate. Symptoms are improved now with no residual weakness. Vital Signs Date Time Temp Pulse Resp B/P Pulse O2 O2 Flow FiO2 Ox Delivery Rate 07/05 1123 97 Nasal 2.0L Cannula 07/05 0827 142/74 07/05 0750 97.6 84 20 142/74 98 Nasal 2.5L Cannula 07/05 0000 Nasal 2.0L Cannula 07/04 2238 98.1 07/04 2200 79 18 126/66 98 Nasal 2.0L Cannula 07/04 2055 129 126/66 07/04 1711 Nasal 2.0L Cannula 07/04 1643 Nasal 2.0L Cannula 07/04 1600 Nasal 2.0L Cannula 07/04 1425 98.6 82 16 110/47 92 Nasal 2.0L Cannula 07/04 1350 96.0 81 20 110/56 96 Nasal 2.0L Cannula 07/04 1310 96.5 81 20 123/58 03 1253 96.5 81 20 123/58 99 Nasal 2.0L Cannula on exam: aox3, nad. cv; s1, s2, rrr, tachy. resp; clear abd; soft, nt, bs+ ext; 2+ edema b/l. Laboratory Tests 07/05 07/05 07/05 1220 0658 0600 Chemistry Sodium (137 - 145 mmol/L) 138 Potassium (3.5 - 5.1 mmol/L) 4.1 Chloride (98 - 107 mmol/L) 98 Carbon Dioxide (22 - 30 mmol/L) 35 H Anion Gap (5 - 16) 5 BUN (9 - 20 mg/dL) 34 H Creatinine (0.7 - 1.2 mg/dL) 1.9 H Estimated GFR (>60 ml/min) 34 L BUN/Creatinine Ratio (7 - 25 %) 17.9 Magnesium (1.6 - 2.3 mg/dL) 1.9 Troponin I (<0.11 ng/ml) Pending 0.11 *H Cancelled Hematology CBC w Diff NO MAN DIFF REQ WBC (4.8 - 10.8 /CUMM) 9.7 RBC (4.70 - 6.10 /CUMM) 3.02 L Hgb (14.0 - 18.0 G/DL) 9.2 L Hct (42 - 52 %) 28.6 L MCV (80.0 - 94.0 FL) 94.4 H MCH (27.0 - 31.0 PG) 30.5 RDW (11.5 - 14.5 %) 16.2 H Plt Count (130 - 400 /CUMM) 302 MPV (7.4 - 10.4 FL) 8.5 Gran % (42.2 - 75.2 %) 76.5 H Lymphocytes % (20.5 - 51.1 %) 16.3 L Monocytes % (1.7 - 9.3 %) 5.9 Eosinophils % (0 - 5 %) 0.9 Basophils % (0.0 - 2.0 %) 0.4 Absolute Granulocytes (1.4 - 6.5 /CUMM) 7.4 H Absolute Lymphocytes (1.2 - 3.4 /CUMM) 1.6 Absolute Monocytes (0.10 - 0.60 /CUMM) 0.6 Absolute Eosinophils (0.0 - 0.7 /CUMM) 0.1 Absolute Basophils (0.0 - 0.2 /CUMM) 0 PUBS MCHC (33.0 - 37.0 G/DL) 32.3 L 07/04 07/04 07/04 2320 1800 1657 Chemistry Troponin I (<0.11 ng/ml) 0.10 0.11 *H Urines Urine Color (YEL,AMB,STR) YEL Urine Clarity (CLEAR) CLEAR Urine pH (5.0 - 8.0) 6.5 Ur Specific [place] (1.001 - 1.035) 1.010 Urine Protein (NEG,<30 MG/DL) NEG Urine Ketones (NEG) NEG Urine Nitrite (NEG) NEG Urine Bilirubin (NEG) NEG Urine Urobilinogen (0.1 - 1.0 EU/dl) 0.2 Ur Leukocyte Esterase (NEG) NEG Ur Microscopic EXAM NOT REQUIRED Urine Hemoglobin (NEG) NEG Urine Glucose (N MG/DL) NEG A/P: 85 y/o M iwth pmh sig for CAD s/p status post 7 stents, A. 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 Had a rapid response this am. Had an episode of left upper ext weakness. Also had rapid heart rate this am. Please d/w cardilogy about Defibrillator Interogator. Appreciate neuro input. Please follow further recommendations. Sx are improved with no residual weakness. DVT px; eliquis.
--- NOTE | 2016-07-05 08:47 | Event Note ---
Event Note Event Note: Around 7am nursing staff was called by patient because of acute onset shortness of breath. Nursing staff then made housestaff aware and requested for him to be evaluated. Patient was seen and examined. He reports left sided chest discomfort and that he cannot catch his breath. He states he "doesn't feel right" and appears scared. Vital signs taken during this time were remarkable only for tachycardia. Physical exam: -General: well developed, well nourished obese anxious diaphoretic elderly man in moderate distress -HEENT: NCAT, PERRL, EOMI, anicteric sclera -CVS: tachycardic, irregular rhythm -Resp: CTA bilaterally -GI: Soft, obese, nontender, nondistended, bowel sounds intact -Neuro: Awake and alert, oriented to person/place/time, CN II - XII grossly intact, strength 5/5 x4, sensation intact, normal speech, no facial droop -Ext: fast bounding distal pulses, no cyanosis/clubbing/edema EKG was ordered which demonstrated a paced rhythm. Telemetry was reviewed and demonstrated a paced rhythm with a wide range of heart rates up to 150's overnight with resolution after a short time. Morning labs were drawn with addition of a troponin. Consulting engineering and scientific programmer Dr Vidales was made of aware. At approximately 7:20 patient reported feeling similar symptoms of chest discomfort with associated shortness of breath. Patient appeared scared and disoriented. Physical examination was the same, except for new onset 2/5 left sided weakness without any central neurologic deficits such as slurred speech or facial droop. Stroke alert was called and CT head was obtained which ruled out any intracranial bleed. Stat neurology consult was placed with Dr. Brito whom made no further management recommendation and advised against using any tPa as it was felt patient may be experience a transient ischemic attack. Dax was assessed one hour later, for which he reports "feeling a bit better" but does admit to some weakness on his left side.
--- NOTE | 2016-07-05 11:03 | Cons- Neurology ---
General Information and HPI Consulting Request Date of Consult: 07/05/16 Requested By: MAURICIO ARRIOLA MD Reason for Consult: Sudden left sided weakness Source of Information: patient, family, old records Exam Limitations: no limitations History of Present Illness: This is a pleasant 85-year-old man with multiple cardiovascular risk factors and 7 coronary stents, known atrial fibrillation on Eliquis, who was admitted to the hospital for CHF exacerbation shortness of breath and chest pain. While in the hospital today, he awoke around 6 AM and was being weighted by the nurse when suddenly he felt that his left arm felt strange. He noted that his ve teacher was weak and his whole arm was weak. He cannot feel his hands and cannot coordinate his movements. There was no pain associated with this. This went on for least 2 hours at which point I was called or stroke alert. However, correcting Dr. Diamond note, the reason TPA was not given was not because it was a TIA but rather equals the patient was on anticoagulation at the time. Fortunately, symptoms of now completely resolved. The patient denies ever having such an event prior to today, that was on anticoagulation to try to prevent them. No other focal symptoms. Patient has been hoarse since arriving at the hospital due to secretions and cough. Allergies/Medications Allergies: Coded Allergies: No Known Allergies (06/23/16) Home Med List: Allopurinol 100 MG TABLET 1 TAB PO DAILY GOUT Apixaban (Eliquis) 2.5 MG TABLET 1 TAB PO BID BLOOD THINNER (Reported) Budesonide/Formoterol Fumarate (Symbicort 160-4.5 Mcg Inhaler) 160 MCG-4.5 MCG/ ACTUATION HFA.AER.AD 2 PUF INH BID BREATHING PROBLEMS (Reported) Carvedilol (Coreg) 12.5 MG TABLET 1 TAB PO BID HTN Cyanocobalamin/FA/Pyridoxine (Folbic Tablet) 1 EACH TABLET 1 TAB PO DAILY SUPPLEMENT (Reported) Esomeprazole (Nexium) 40 MG CAPSULE. 1 CAP PO BID GI (Reported) Furosemide (Lasix) 40 MG TABLET 1 TAB PO BID EDEMA Levothyroxine Sodium 25 MCG TABLET 1 TAB PO DAILY AC THYROID Oxycodone HCl/Acetaminophen (Percocet 5-325 MG Tablet) 5 MG-325 MG TABLET 1-2 TAB PO Q4-6 PRN PAIN Polyethylene Glycol 3350 (Clearlax) 17 GRAM/DOSE POWDER 1 CAP PO DAILY GI ( Reported) Prednisone 5 MG TABLET GOUT (Reported) Sennosides/Docusate Sodium (Senna S Tablet) 8.6 MG-50 MG TABLET 2 TAB PO QPM CONSTIPATION (Reported) Simvastatin (Zocor*) 20 MG TABLET 1 TAB PO QPM CHOLESTEROL (Reported) Current Medications: Current Medications Sig/Jaswinder Start time Last Medication Dose Route Stop Time Status Admin Acetaminophen 650 MG Q6P PRN 07/04 1245 AC PO Albuterol Sulfate 3 ML BID 07/04 2200 AC INH Allopurinol 100 MG DAILY 07/04 1234 AC 07/05 PO 1020 Apixaban 2.5 MG BID 07/04 1235 AC 07/05 PO 1020 Aspirin Buffered 81 MG DAILY 07/04 1351 AC 07/05 PO 1020 Atorvastatin Calcium 10 MG 1700 07/04 1700 AC 07/04 PO 1630 Budesonide/ 2 PUF BID 07/04 1235 AC 07/05 Formoterol Fumarate INH 1021 Carvedilol 12.5 MG BID 07/04 1235 AC 07/05 PO 0827 Furosemide 40 MG 7:30 AM, & 4:30 PM 07/04 1630 AC 07/05 IV 0824 Furosemide 0 .STK-MED ONE 07/04 1155 DC IV Furosemide 40 MG ONCE ONE 07/04 1145 DC / IV 07/04 1146 1205 Levothyroxine Sodium 0.025 MG DAILY AC 07/05 0700 AC 07/05 PO 0628 Nitroglycerin 0 .STK-MED ONE 07/04 1155 DC TOP Nitroglycerin 1 GM ONCE ONE 07/04 1145 DC / TOP 07/04 1146 1205 Omeprazole 40 MG BID 07/04 2200 AC 07/05 PO 1020 Oxycodone/ 1 TAB Q6P PRN 07/04 1245 AC Acetaminophen PO Polyethylene Glycol 17 GM DAILY 07/05 1000 AC 07/05 PO 1020 Potassium Chloride 40 MEQ ONCE ONE 07/04 1245 DC / PO 07/04 1246 1310 Prednisone 5 MG DAILY 07/04 1236 AC 07/05 PO 1020 Senna/Docusate Sodium 2 TAB QPM 07/04 2200 AC PO Review of Systems Review of Systems: No other symptoms. Rest as per days PI. Past History Travel History Traveled to [place] past 21 day No Medical History Neurological: STROKE EENT: cataracts Cardiovascular: AFIB, CHF, hypertension, hyperlipidemia, myocardial infarction Respiratory: NONE Gastrointestinal: GERD Hepatic: NONE Renal: ? 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 SISTER (CAD). Psychosocial History Where Do You Live? [facility] Services at Home: None Smoking Status: Former Smoker ETOH Use: denies use Illicit Drug Use: denies illicit drug use Functional Ability ADLs Independent: dressing, eating, toileting, bathing. Ambulation: independent, walker, non-ambulatory IADLs Independent: shopping, housework, finances, food prep, telephone, transportation , medication admin. Exam & Diagnostic Data Vital Signs and I&O Vital Signs Date Time Temp Pulse Resp B/P Pulse O2 O2 Flow FiO2 Ox Delivery Rate 07/05 0827 142/74 03/ 0750 97.6 84 20 142/74 98 Nasal 2.5L Cannula / 0000 Nasal 2.0L Cannula / 2238 98.1 / 2200 79 18 126/66 98 Nasal 2.0L Cannula 03/04 2055 129 126/66 03/04 1711 Nasal 2.0L Cannula /04 1643 Nasal 2.0L Cannula / 1600 Nasal 2.0L Cannula /04 1425 98.6 82 16 110/47 92 Nasal 2.0L Cannula 03/04 1350 96.0 81 20 110/56 96 Nasal 2.0L Cannula 03/04 1310 96.5 81 20 123/58 03/04 1253 96.5 81 20 123/58 99 Nasal 2.0L Cannula 03/04 1155 92 20 123/65 97 Nasal 2.0L Cannula Intake & Output /05 1600 03/05 0800 03/05 0000 Intake Total 490 Output Total 600 Balance -110 Intake, IV 10 Intake, Oral 480 Number 1 Bowel Movements Output, Urine 600 Patient 183 lb 190 lb Weight Physical Exam: General: The patient is in no distress. Pleasant and cooperative. MSE: Alert and oriented 3. Good attention and concentration. Good short-term memory and fund of knowledge reflected through our conversation. Language is fluent with good comprehension and repetition. Cardiovascular: S1 and S2 are normal, regular rate and rhythm, and normal pedal pulses. Vision: Visual hernandez are intact. Neurological: Hoarse voice. Extra ocular movements intact, CHAD, face is symmetric, tongue midline, uvula raises equally in the midline, V1-V3 sensation to touch is intact and equal bilaterallty, sternocleidomastoid and trapezius are strong on both sides, muscles of mastication are strong. No dysarthria noted. Motor exam reveals no abnormality of strength. Power is 5-5 throughout the distribution distally and proximally. Sensory exam revealed distal loss of vibration.. Reflexes are symmetric bilaterally. Cerebellar exam does not reveal any dysmetria. Upgoing toe on the right. Rapid alternating movements are intact bilaterally. Gait is steady with normal base. Last 48 Hours of Lab Results: Laboratory Tests 07/05 07/05 07/04 0658 0600 2320 Chemistry Sodium (137 - 145 mmol/L) 138 Potassium (3.5 - 5.1 mmol/L) 4.1 Chloride (98 - 107 mmol/L) 98 Carbon Dioxide (22 - 30 mmol/L) 35 H Anion Gap (5 - 16) 5 BUN (9 - 20 mg/dL) 34 H Creatinine (0.7 - 1.2 mg/dL) 1.9 H Estimated GFR (>60 ml/min) 34 L BUN/Creatinine Ratio (7 - 25 %) 17.9 Magnesium (1.6 - 2.3 mg/dL) 1.9 Troponin I (<0.11 ng/ml) 0.11 *H Cancelled 0.10 Hematology CBC w Diff NO MAN DIFF REQ WBC (4.8 - 10.8 /CUMM) 9.7 RBC (4.70 - 6.10 /CUMM) 3.02 L Hgb (14.0 - 18.0 G/DL) 9.2 L Hct (42 - 52 %) 28.6 L MCV (80.0 - 94.0 FL) 94.4 H MCH (27.0 - 31.0 PG) 30.5 RDW (11.5 - 14.5 %) 16.2 H Plt Count (130 - 400 /CUMM) 302 MPV (7.4 - 10.4 FL) 8.5 Gran % (42.2 - 75.2 %) 76.5 H Lymphocytes % (20.5 - 51.1 %) 16.3 L Monocytes % (1.7 - 9.3 %) 5.9 Eosinophils % (0 - 5 %) 0.9 Basophils % (0.0 - 2.0 %) 0.4 Absolute Granulocytes (1.4 - 6.5 /CUMM) 7.4 H Absolute Lymphocytes (1.2 - 3.4 /CUMM) 1.6 Absolute Monocytes (0.10 - 0.60 /CUMM) 0.6 Absolute Eosinophils (0.0 - 0.7 /CUMM) 0.1 Absolute Basophils (0.0 - 0.2 /CUMM) 0 PUBS MCHC (33.0 - 37.0 G/DL) 32.3 L 07/04 07/04 1800 1657 Chemistry Troponin I (<0.11 ng/ml) 0.11 *H Urines Urine Color (YEL,AMB,STR) YEL Urine Clarity (CLEAR) CLEAR Urine pH (5.0 - 8.0) 6.5 Ur Specific [place] (1.001 - 1.035) 1.010 Urine Protein (NEG,<30 MG/DL) NEG Urine Ketones (NEG) NEG Urine Nitrite (NEG) NEG Urine Bilirubin (NEG) NEG Urine Urobilinogen (0.1 - 1.0 EU/dl) 0.2 Ur Leukocyte Esterase (NEG) NEG Ur Microscopic EXAM NOT REQUIRED Urine Hemoglobin (NEG) NEG Urine Glucose (N MG/DL) NEG 07/04 1000 Chemistry Sodium (137 - 145 mmol/L) 140 Potassium (3.5 - 5.1 mmol/L) 3.6 Chloride (98 - 107 mmol/L) 95 L Carbon Dioxide (22 - 30 mmol/L) 34 H Anion Gap (5 - 16) 11 BUN (9 - 20 mg/dL) 35 H Creatinine (0.7 - 1.2 mg/dL) 1.8 H Estimated GFR (>60 ml/min) 36 L BUN/Creatinine Ratio (7 - 25 %) 19.4 Glucose (65 - 99 mg/dL) 155 H Calcium (8.4 - 10.2 mg/dL) 9.6 Magnesium (1.6 - 2.3 mg/dL) 1.9 Total Bilirubin (0.2 - 1.3 mg/dL) 0.6 AST (17 - 59 U/L) 29 ALT (21 - 72 U/L) 35 Alkaline Phosphatase (< 127 U/L) 91 Troponin I (<0.11 ng/ml) 0.12 *H Tvh-Z-Szjlahemeoa Pept (<125 pg/mL) 5590 H Total Protein (6.3 - 8.2 g/dL) 6.2 L Albumin (3.5 - 5.0 g/dL) 3.2 L Globulin (1.9 - 4.2 gm/dL) 3.0 Albumin/Globulin Ratio (1.1 - 2.2 %) 1.1 Hematology CBC w Diff NO MAN DIFF REQ WBC (4.8 - 10.8 /CUMM) 11.1 H RBC (4.70 - 6.10 /CUMM) 3.25 L Hgb (14.0 - 18.0 G/DL) 10.1 L Hct (42 - 52 %) 30.5 L MCV (80.0 - 94.0 FL) 93.9 MCH (27.0 - 31.0 PG) 31.0 RDW (11.5 - 14.5 %) 16.3 H Plt Count (130 - 400 /CUMM) 373 MPV (7.4 - 10.4 FL) 8.2 Gran % (42.2 - 75.2 %) 80.0 H Lymphocytes % (20.5 - 51.1 %) 12.4 L Monocytes % (1.7 - 9.3 %) 6.6 Eosinophils % (0 - 5 %) 0.7 Basophils % (0.0 - 2.0 %) 0.3 Absolute Granulocytes (1.4 - 6.5 /CUMM) 8.9 H Absolute Lymphocytes (1.2 - 3.4 /CUMM) 1.4 Absolute Monocytes (0.10 - 0.60 /CUMM) 0.7 H Absolute Eosinophils (0.0 - 0.7 /CUMM) 0.1 Absolute Basophils (0.0 - 0.2 /CUMM) 0 PUBS MCHC (33.0 - 37.0 G/DL) 33.0 Imaging/Other Studies: Noncontrast head CT was unrevealing. Assessment/Plan Assessment: This is an 85-year-old man with multiple cardiovascular risk factors and likely generalized atherosclerotic disease. He also happens to have atrial fibrillation and has been on Eliquis for this over the last year. Today in the morning he developed transient ischemic attack that has now resolved the due to the fact that he is on a regimen of preventative medications. Nonetheless, the fact that he had an event while on Eliquis is somewhat concerning. Her main stability determine whether this was due to atrial fibrillation or due to small vessel occlusion in the brain. Recommendations: 1. Recommend checking that telemetry for A. fib between 5 and 9 in the morning. If found to have been in A. fib recommend either increasing Eliquis dose or switching to another anticoagulant will defer this to Dr. Vidales. 2. If not, I agree with supplementing aspirin prevent smaller vessel occlusion within the intracerebral intra-arterial arteries. 3. Increase Lipitor to 80 mg. Improve blood pressure control increasing current medication doses. 4. Consider checking carotids and echo. Consult Acknowledgment - Thank you for your consult request.
--- NOTE | 2016-07-05 14:05 | PN- Cardiology ---
Subjective Subjective: The patient has had no further chest discomfort. Overnight, the patient had an episode of significant shortness of breath when rising to go to the bathroom. This morning, the patient had episodes of tachycardia with an associated episode of left arm weakness suggestive of a TIA. Neurology input pending. At the moment, the left arm weakness has completely resolved. No other current cardiac symptoms. Objective Vital Signs and I&Os Vital Signs Date Time Temp Pulse Resp B/P Pulse O2 O2 Flow FiO2 Ox Delivery Rate 07/05 1123 97 Nasal 2.0L Cannula 07/05 0827 142/74 07/05 0750 97.6 84 20 142/74 98 Nasal 2.5L Cannula 07/05 0000 Nasal 2.0L Cannula 07/04 2238 98.1 07/04 2200 79 18 126/66 98 Nasal 2.0L Cannula 07/04 2055 129 126/66 07/04 1711 Nasal 2.0L Cannula 07/04 1643 Nasal 2.0L Cannula 07/04 1600 Nasal 2.0L Cannula 07/04 1425 98.6 82 16 110/47 92 Nasal 2.0L Cannula Intake & Output 07/05 1600 07/05 0800 / 0000 07/04 1600 07/04 0800 07/04 0000 Intake Total 490 Output Total 600 200 Balance -110 -200 Intake, IV 10 Intake, Oral 480 Number 1 Bowel Movements Output, Urine 600 200 Patient 183 lb 190 lb 189 lb Weight Current Medications: Current Medications Sig/Jaswinder Start time Last Medication Dose Route Stop Time Status Admin Acetaminophen 650 MG Q6P PRN 07/04 1245 AC PO Albuterol Sulfate 3 ML BID 07/04 2200 AC INH Allopurinol 100 MG DAILY 07/04 1234 AC 07/05 PO 1020 Apixaban 2.5 MG BID 07/04 1235 AC 07/05 PO 1020 Aspirin Buffered 81 MG DAILY 07/04 1351 AC 07/05 PO 1020 Atorvastatin Calcium 80 MG 1700 07/05 1700 AC PO Atorvastatin Calcium 10 MG 1700 07/04 1700 DC 07/04 PO 1630 Budesonide/ 2 PUF BID 07/04 1235 AC 07/05 Formoterol Fumarate INH 1021 Carvedilol 12.5 MG BID 07/04 1235 AC 07/05 PO 0827 Furosemide 40 MG 7:30 AM, & 4:30 PM 07/04 1630 AC 07/05 IV 0824 Levothyroxine Sodium 0.025 MG DAILY AC 07/05 0700 AC 07/05 PO 0628 Omeprazole 40 MG BID 07/04 2200 AC 07/05 PO 1020 Oxycodone/ 1 TAB Q6P PRN 07/04 1245 AC Acetaminophen PO Patient Medication 1 UNIT ONE NR 07/05 1200 DC Teaching ED 07/05 1230 Polyethylene Glycol 17 GM DAILY 07/05 1000 AC 07/05 PO 1020 Prednisone 5 MG DAILY 07/04 1236 AC 07/05 PO 1020 Senna/Docusate Sodium 2 TAB QPM 07/04 2200 AC PO Results Last 48 Hrs of Labs/Mics: Laboratory Tests 07/05/16 1220: Troponin I 0.10 07/05/16 0658: Anion Gap 5, Estimated GFR 34 L, BUN/Creatinine Ratio 17.9, Magnesium 1.9, Troponin I 0.11 *H, CBC w Diff NO MAN DIFF REQ, RBC 3.02 L, MCV 94.4 H, MCH 30.5, RDW 16.2 H, MPV 8.5, Gran % 76.5 H, Lymphocytes % 16.3 L, Monocytes % 5.9, Eosinophils % 0.9, Basophils % 0.4, Absolute Granulocytes 7.4 H, Absolute Lymphocytes 1.6, Absolute Monocytes 0.6, Absolute Eosinophils 0.1, Absolute Basophils 0, PUBS MCHC 32.3 L 07/05/16 0600: Troponin I Cancelled 07/04/16 2320: Troponin I 0.10 07/04/16 1800: Urine Color YEL, Urine Clarity CLEAR, Urine pH 6.5, Ur Specific [place] 1.010, Urine Protein NEG, Urine Ketones NEG, Urine Nitrite NEG, Urine Bilirubin NEG, Urine Urobilinogen 0.2, Ur Leukocyte Esterase NEG, Ur Microscopic EXAM NOT REQUIRED, Urine Hemoglobin NEG, Urine Glucose NEG 07/04/16 1657: Troponin I 0.11 *H 07/04/16 1000: Anion Gap 11, Estimated GFR 36 L, BUN/Creatinine Ratio 19.4, Glucose 155 H, Calcium 9.6, Magnesium 1.9, Total Bilirubin 0.6, AST 29, ALT 35, Alkaline Phosphatase 91, Troponin I 0.12 *H, Kgi-R-Ginhfkzobaj Pept 5590 H, Total Protein 6.2 L, Albumin 3.2 L, Globulin 3.0, Albumin/Globulin Ratio 1.1, CBC w Diff NO MAN DIFF REQ, RBC 3.25 L, MCV 93.9, MCH 31.0, RDW 16.3 H, MPV 8.2, Gran % 80.0 H, Lymphocytes % 12.4 L, Monocytes % 6.6, Eosinophils % 0.7, Basophils % 0.3, Absolute Granulocytes 8.9 H, Absolute Lymphocytes 1.4, Absolute Monocytes 0.7 H, Absolute Eosinophils 0.1, Absolute Basophils 0, PUBS MCHC 33.0 Assessment/Plan Assessment/Plan Assessment: 1. CHest pain; rule out ACS; minimallly elevated troponin 2. Probable TIA with left upper extremity weakness 3. Atrial fibrillation with episodes of elevated ventricular rate -the patient has known atrial fibrillation underlying his paced rhythm. Episodes of elevated rate have been noted. 4. History of CAD 5. Chronic renal insufficiency 6. Anemia 7. Elevated proBNP 8. Lorin cell tumor; s/p recent surgery. 9. LE edema / venous insufficiency. Recommendations: -In view of the recent neurologic event, I would pursue evaluation of the neurologic issue first. -Neurology input pending -Keep the patient on telemetry -Full pacemaker interrogation tomorrow to rule out episodes of pacemaker mediated tachycardia -Formal follow-up evaluation with Dr. Richey tomorrow -At the present time, the patient meet current criteria for being on Eliquis 2.5 mg twice a day with an age of greater than 80 and a creatinine of greater than 1.5. It is possible that we might consider a DIVINA to better exclude the possibility of atrial appendage thrombus or other sources of emboli to better guide the decision about adjusting Eliquis dose or changing to warfarin in view of his underlying malignancy. In addition, increasing the Eliquis to 5 mg twice a day will also entail a likely increase in the bleeding risk associated with a higher dose. -On Wednesday, I would consider proceeding with a DIVINA. Subsequently, I would likely recommend a cardiac catheterization to define his coronary anatomy, since his last stress test was already documented to be mildly abnormal. -The patient has known mild carotid plaque. Follow-up carotid ultrasound pending -Echocardiogram pending Continue telemetry? Yes
[2016-07-05 16:16] VITALS: BP 120/68
--- NOTE | 2016-07-05 17:24 | ULTRASOUND REPORT ---
EXAMINATION: US DUPLEX CAROTID, BILATERAL CLINICAL INDICATION: Syncope COMPARISON: None. TECHNIQUE: Duplex ultrasound with spectral analysis and color flow imaging was performed of both carotid arteries. FINDINGS: On the right, there is some heterogeneous shadowing plaque in the bulb and origin of the internal carotid artery. In the distal CCA, the peak systolic velocity is 52 cm/sec. In the proximal ICA, the peak systolic velocity is 64 cm/sec, and the end diastolic velocity is 20 cm/sec. The peak systolic velocity of the external carotid artery is 127 cm/s. . On the left, there is heterogeneous shadowing plaque within the bulb and origin of the internal carotid artery.. In the distal CCA, the peak systolic velocity is 57 cm/sec. In the proximal ICA, the peak systolic velocity is 82 cm/sec, and the end diastolic velocity is 12 cm/sec. The peak systolic velocity of the external carotid artery is 94 cm/s.. The vertebral arteries show antegrade flow with normal waveforms bilaterally. IMPRESSION: 1. The right internal carotid artery shows no hemodynamically significant stenosis. 2. The left internal carotid artery shows no hemodynamically significant stenosis. Internal carotid artery stenoses fall in the 0-49% category by duplex Doppler velocity spectral waveform analysis. .
[2016-07-05 21:04] VITALS: BP 108/48
--- NOTE | 2016-07-06 08:04 | PN- Housestaff ---
See Addendum Subjective Follow-up For: demand ischemia TIA Tele-Events Since Last Visit: single pacing, rate from 72 to 142. had 24 beat run at 115am, and 6 beat run at 535am Subjective: Pt was seen and examined today, reports anxiety regarding the TIA episode yesterday. He was worried that he "was reaching the end" as his family (kids and grandkids) all came to visit him yesterday. He also misses his a lot as she has been sick at home and has not seen him while he was at the facility. he reports that he did not receive coreg and symbicort at the facility. although he has been tachycardic, he denies chest discomfort/ chest pain. His voice was hoarse today, and he said it is due to coughing and lozenges wont help. he feels better in terms of his breathing. LE edema has improved significantly. currently denying dizziness, shortness of breath, chest pain. Pacemaker will be interrogated today and Dr. Richey will evaluate him at the hospital. echo was done last night, results pending. As plan for stress test tomow or wed, i restarted his chf diet. his k 3.8 today, will give 1X kdur. added on mag to todays lab. Review of Systems Constitutional: Reports: see HPI. Objective Last 24 Hrs of Vital Signs/I&O Vital Signs Date Time Temp Pulse Resp B/P Pulse O2 O2 Flow FiO2 Ox Delivery Rate 07/06 0920 97.9 69 18 120/64 96 Nasal Cannula 07/06 0808 96 Nasal 1.0L Cannula 07/06 0000 Nasal 2.0L Cannula 07/05 2108 68 108/48 07/05 210 98.1 68 16 108/48 98 Nasal 2.0L Cannula 07/05 2044 97 Nasal 2.0L Cannula 07/05 1616 98.6 74 18 120/68 97 07/05 1600 Nasal 2.0L Cannula 07/05 1123 97 Nasal 2.0L Cannula Intake & Output 07/06 1600 07/06 0800 07/06 0000 Intake Total 600 Output Total 750 Balance -150 Intake, Oral 600 Output, Urine 750 Physical Exam General Appearance: Alert, Oriented X3, Cooperative, No Acute Distress Skin: No Significant Lesion HEENT: Atraumatic Cardiovascular: tachycardic Lungs: Clear to Auscultation, Normal Air Movement Abdomen: Normal Bowel Sounds, Soft, No Tenderness Neurological: Normal Speech Extremities: trace pedal edema Current Medications: Current Medications Sig/Jaswinder Start time Last Medication Dose Route Stop Time Status Admin Acetaminophen 650 MG .STK-MED ONE 07/06 2103 DC PO 07/05 210 Acetaminophen 650 MG Q6P PRN 07/04 1245 AC 07/05 PO 2107 Albuterol Sulfate 3 ML BID 07/04 2200 AC 07/06 INH 0807 Allopurinol 100 MG DAILY 07/04 1234 AC 07/05 PO 1020 Apixaban 2.5 MG BID 07/04 1235 AC 07/05 PO 2108 Aspirin Buffered 81 MG DAILY 07/04 1351 AC 07/05 PO 1020 Atorvastatin Calcium 80 MG 1700 07/05 1700 AC 07/05 PO 1700 Atorvastatin Calcium 10 MG 1700 07/04 1700 DC 07/04 PO 1630 Budesonide/ 2 PUF BID 07/04 1235 AC 07/05 Formoterol Fumarate INH 2107 Carvedilol 12.5 MG BID 07/04 1235 AC 07/05 PO 2108 Furosemide 40 MG 7:30 AM, & 4:30 PM 07/04 1630 AC 07/06 IV 0621 Levothyroxine Sodium 0.025 MG DAILY AC 07/05 0700 AC 07/06 PO 0620 Omeprazole 40 MG BID 07/04 2200 AC 07/05 PO 2108 Oxycodone/ 1 TAB Q6P PRN 07/04 1245 AC Acetaminophen PO Patient Medication 1 UNIT ONE NR 07/05 1200 DC Teaching ED 07/05 1230 Polyethylene Glycol 17 GM DAILY 07/05 1000 AC 07/05 PO 1020 Potassium Chloride 40 MEQ ONCE ONE 07/06 0915 DC PO 07/06 0916 Prednisone 5 MG DAILY 07/04 1236 AC 07/05 PO 1020 Senna/Docusate Sodium 2 TAB QPM 07/04 2200 AC PO Last 24 Hrs of Lab/Pro Results Last 24 Hrs of Labs/Mics: Laboratory Tests 07/06/16 0730: Anion Gap 8, Estimated GFR 32 L, BUN/Creatinine Ratio 17.0, Magnesium 1.7, CBC w Diff NO MAN DIFF REQ, RBC 3.25 L, MCV 94.0, MCH 30.9, RDW 16.3 H, MPV 8.6, Gran % 76.8 H, Lymphocytes % 15.2 L, Monocytes % 6.9, Eosinophils % 0.4, Basophils % 0.7, Absolute Granulocytes 7.5 H, Absolute Lymphocytes 1.5, Absolute Monocytes 0.7 H, Absolute Eosinophils 0, Absolute Basophils 0.1, PUBS MCHC 32.9 L 07/05/16 1220: Troponin I 0.10 Assessment/Plan Assessment: Mr. Ye is a pleasant 85-year-old male with known history of CAD status post 7 stent placement, A. fib status post pacemaker and defibrillator placement a year ago, systolic heart failure (HFrEF) with EF of 40%, COPD, hypertension who was recently discharged from [facility] after treatment of community- acquired pneumonia and congestive heart failure was sent from [facility] after he developed acute onset left-sided chest pain squeezing in nature associated with dizziness and shortness of breath. He is currently admitted to the telemetry floor and the following is the management: # Chest pain (resolved) likely demand ischemia - Minimally elevated troponin (max 0.12) with no significant ST/T wave changes * Cardio consult appreciated * Echo pending results * Nuclear stress test wednesday/wednesday # TIA - transient left sided weakness (resolved): Sxs resolved/no current neuro deficits - Carotid doplper: The right internal carotid artery shows no hemodynamically significant stenosis. The left internal carotid artery shows no hemodynamically significant stenosis. Internal carotid artery stenoses fall in the 0-49% category by duplex Doppler velocity spectral waveform analysis. - Head CT negative * Continue ASA, increase lipitor to 80 mg PO daily * Consider DIVINA # Atrial fibrillation s/p PPM placement, up to 24 beat run (asymptomatic) * Cardio consult appreciated * Continue eliquis 2.5 mg PO BID (dose adjusted due to age and cre) * Continue coreg * Pacemaker interrogation 07/06 * Dr. Richey will see patient 07/06 * 07/06: K 3.8, given 1 X kdur. mag 1.7, given 1X mag ox # Systolic CHF * Bilateral lower extremity edema without any overt signs of pulmonary edema on clinical exam * Elevate legs * Lasic 40 mg IV BID * Strict Is/Os, daily weights # Leukocytosis (resolved) - Mild leukocytosis of 11,100 on admission without evidence of focal infection ( denies any productive cough, fever, chills, urinary burning or pain) - CXR revealed new patchy reticular nodular airspace opacity questionable for pneumonia versus atelectasis * Hold off Abx for now # COPD * Continue home inhalers * Home prednisone daily Diet: CHF diet DVTP: Eliquis alps Mild pain pathway FULL CODE Problem List: 1. Chest pain syndrome 2. Atrial fibrillation 3. CKD (chronic kidney disease) 4. TIA (transient ischemic attack) Pain Ratin Pain Location: none Pain Goal: Remain pain free Pain Plan: mild pp Tomorrow's Labs & Rationales: bep and mag for hypokalemia and hypomag with v tach DVT/Prophylaxis: mechanical, pharmacological Consulting Request: Consulting Specialty: Cardiology Consulting Physician: Obey Vidales MD Reason for Consult: chest pain
[2016-07-06 08:59] LABS: ABSOLUTE BASOPHIL COUNT 0.1 /CUMM (0.0-0.2); ABSOLUTE EOSINOPHIL COUNT 0 /CUMM (0.0-0.7); ABSOLUTE GRANULOCYTE CT 7.5 /CUMM (1.4-6.5); ABSOLUTE LYMPH COUNT 1.5 /CUMM (1.2-3.4); ABSOLUTE MONOCYTE COUNT 0.7 /CUMM (0.10-0.60); BASOPHIL % 0.7 % (0.0-2.0); EOSINOPHIL % 0.4 % (0-5); GRANULOCYTE % 76.8 % (42.2-75.2); HEMATOCRIT 30.6 % (42-52); MEAN CORPUSCULAR HGB 30.9 PG (27.0-31.0); MEAN CORPUSCULAR HGB CONC 32.9 G/DL (33.0-37.0); MEAN PLATELET VOLUME 8.6 FL (7.4-10.4); PLATELET COUNT 324 /CUMM (130-400); RBC DISTRIBUTION WIDTH 16.3 % (11.5-14.5); RED BLOOD CELL CT 3.25 /CUMM (4.70-6.10); WHITE BLOOD CELL COUNT 9.8 /CUMM (4.8-10.8)
[2016-07-06 09:20] VITALS: BP 120/64
--- NOTE | 2016-07-06 10:09 | NUR ---
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
[2016-07-06 16:42] VITALS: BP 116/54
--- NOTE | 2016-07-06 16:49 | PN- Cardiology ---
Subjective Subjective: The patient reports that he is feeling better. The prior left arm weakness has resolved. No current chest pain. No palpitations. No shortness of breath. No diaphoresis. Objective Vital Signs and I&Os Vital Signs Date Time Temp Pulse Resp B/P Pulse O2 O2 Flow FiO2 Ox Delivery Rate 07/06 1642 98.3 47 20 116/54 96 Nasal 3.0L Cannula 07/06 1011 69 120/64 07/06 0920 97.9 69 18 120/64 96 Nasal Cannula 07/06 0808 96 Nasal 1.0L Cannula 07/06 0000 Nasal 2.0L Cannula 07/058 68 108/48 07/06 2103 98.1 68 16 108/48 98 Nasal 2.0L Cannula 07/06 2043 97 Nasal 2.0L Cannula Intake & Output 07/06 1600 07/06 0800 07/06 0000 07/05 1600 07/05 0807/05 0000 Intake Total 100 600 480 490 Output Total 500 750 600 600 Balance -400 -150 -120 -110 Intake, IV 10 Intake, Oral 100 600 480 480 Number 1 Bowel Movements Output, Urine 500 750 600 600 Patient 183 lb 183 lb 190 lb Weight Physical Exam: Gen: The patient is in no acute distress HEENT: Normal nose, ears, and oropharynx. Pupils equal bilaterally. Conjunctiva normal. Neck: Supple with no JVD, no masses, and no thyromegaly Lungs: There are to auscultation with normal respiratory effort Heart: Irregularly irregular, S1, S2, 2/6 systolic murmur. 2+ peripheral edema, 2+ pulses in the lower extremities bilaterally Abdomen: Soft, nontender, no masses. No hepatomegaly. No splenomegaly Extremities: No clubbing or cyanosis. Normal muscle strength in the upper and lower extremities Skin: Normal skin turgor with no skin ulcers or lesions noted. Current Medications: Current Medications Sig/Jaswinder Start time Last Medication Dose Route Stop Time Status Admin Acetaminophen 650 MG .STK-MED ONE 07/06 2103 DC PO 07/05 2104 Acetaminophen 650 MG Q6P PRN 07/04 1245 AC 07/05 PO 210 Albuterol Sulfate 3 ML BID 07/04 2200 AC 07/06 INH 0807 Allopurinol 100 MG DAILY 07/04 1234 AC 07/06 PO 1012 Apixaban 2.5 MG BID 07/04 1235 AC 07/06 PO 1011 Aspirin Buffered 81 MG DAILY 07/04 1351 AC 07/06 PO 1011 Atorvastatin Calcium 80 MG 1700 07/05 1700 AC 07/05 PO 1700 Budesonide/ 2 PUF BID 07/04 1235 AC 07/06 Formoterol Fumarate INH 1011 Carvedilol 12.5 MG BID 07/04 1235 AC 07/06 PO 1011 Furosemide 40 MG 7:30 AM, & 4:30 PM 07/04 1630 AC 07/06 IV 0621 Levothyroxine Sodium 0.025 MG DAILY AC 07/05 0700 AC 07/06 PO 0620 Magnesium Oxide 400 MG ONE ONE 07/06 0945 DC 07/06 PO 07/06 0946 1409 Omeprazole 40 MG BID 07/04 2200 AC 07/06 PO 1012 Oxycodone/ 1 TAB Q6P PRN 07/04 1245 AC Acetaminophen PO Polyethylene Glycol 17 GM DAILY 07/05 1000 AC 07/06 PO 1012 Potassium Chloride 40 MEQ ONCE ONE 07/06 0915 DC 07/06 PO 07/06 0916 1409 Prednisone 5 MG DAILY 07/04 1236 AC 07/06 PO 1012 Senna/Docusate Sodium 2 TAB QPM 07/04 2200 AC PO Results Last 48 Hrs of Labs/Mics: Laboratory Tests 07/06/16 0730: Anion Gap 8, Estimated GFR 32 L, BUN/Creatinine Ratio 17.0, Magnesium 1.7, CBC w Diff NO MAN DIFF REQ, RBC 3.25 L, MCV 94.0, MCH 30.9, RDW 16.3 H, MPV 8.6, Gran % 76.8 H, Lymphocytes % 15.2 L, Monocytes % 6.9, Eosinophils % 0.4, Basophils % 0.7, Absolute Granulocytes 7.5 H, Absolute Lymphocytes 1.5, Absolute Monocytes 0.7 H, Absolute Eosinophils 0, Absolute Basophils 0.1, PUBS MCHC 32.9 L 07/05/16 1220: Troponin I 0.10 07/05/16 0658: Anion Gap 5, Estimated GFR 34 L, BUN/Creatinine Ratio 17.9, Magnesium 1.9, Troponin I 0.11 *H, CBC w Diff NO MAN DIFF REQ, RBC 3.02 L, MCV 94.4 H, MCH 30.5, RDW 16.2 H, MPV 8.5, Gran % 76.5 H, Lymphocytes % 16.3 L, Monocytes % 5.9, Eosinophils % 0.9, Basophils % 0.4, Absolute Granulocytes 7.4 H, Absolute Lymphocytes 1.6, Absolute Monocytes 0.6, Absolute Eosinophils 0.1, Absolute Basophils 0, PUBS MCHC 32.3 L 07/05/16 0600: Troponin I Cancelled 07/04/16 2320: Troponin I 0.10 07/04/16 1800: Urine Color YEL, Urine Clarity CLEAR, Urine pH 6.5, Ur Specific Stockwell 1.010, Urine Protein NEG, Urine Ketones NEG, Urine Nitrite NEG, Urine Bilirubin NEG, Urine Urobilinogen 0.2, Ur Leukocyte Esterase NEG, Ur Microscopic EXAM NOT REQUIRED, Urine Hemoglobin NEG, Urine Glucose NEG 07/04/16 1657: Troponin I 0.11 *H Recent Imaging Studies: Carotid Doppler study: 1. The right internal carotid artery shows no hemodynamically significant stenosis. 2. The left internal carotid artery shows no hemodynamically significant stenosis. Internal carotid artery stenoses fall in the 0-49% category by duplex Doppler velocity spectral waveform analysis. Assessment/Plan Assessment/Plan Assessment: 1. CHest pain; rule out ACS; minimallly elevated troponin 2. Probable TIA with left upper extremity weakness 3. Atrial fibrillation with episodes of elevated ventricular rate -the patient has known atrial fibrillation underlying his paced rhythm. Episodes of elevated rate have been noted. 4. History of CAD 5. Chronic renal insufficiency 6. Anemia 7. Elevated proBNP 8. Lorin cell tumor; s/p recent surgery. 9. LE edema / venous insufficiency. Plan: * Continue Eliquis 2.5 milligrams p.o. b.i.d.. * Electrophysiology consultation today with Dr. Richey. * Pacemaker interrogation pending * continue other cardiac medications. Continue telemetry? Yes
--- NOTE | 2016-07-06 18:58 | Cons- Cardiology ---
General Information and HPI Consulting Request Date of Consult: 07/06/16 Requested By: MAURICIO ARRIOLA MD Reason for Consult: I was asked to see this patient regarding his defibrillator, atrial fibrillation , etc. Source of Information: patient, old records Exam Limitations: no limitations History of Present Illness: This patient is very well known to me. To review his and 84-year-old man who I initially saw in regards to syncope and presyncope. 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 He also had nonsustained ventricular tachycardia. He was found to have significant left ventricular dysfunction with an EF of 35% and on 03/24/2011 I implanted a dual-chamber defibrillator. He was anticoagulated with Coumadin and had long bouts of A. fib. He felt fatigued on sotalol and we changed him over to Tikosyn and this helped for a while but then he developed recurrent fatigue. Tikosyn initially reduced his A. fib burden from 69% down to 3%. 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 [place] More recently has had increasing burdens of atrial fibrillation. He has had volume overload and progressive renal insufficiency. Overall he has had progressive inactivity fatigue and has felt weak and poorly overall. In April 2014 an echocardiogram done by Dr. Vidales showed an EF of 50% his left atrial size is very large at 5.4 cm had mild to moderate mitral regurgitation his PA pressure was elevated at 52. On 06/08/2014 we brought him in for a cardioversion but he only maintained sinus rhythm for 11 hours. He was started on amiodarone and converted spontaneously to sinus rhythm by July 2014. However more recently has had more bouts of A. fib and atrial tachycardias and was asked extracting some of these arrhythmias and he was programmed to DDIR mode. He has been in and out of atrial arrhythmia sometimes it is been able to be paced out of atrial flutter to sinus rhythm. We thought some of his problems could be related to dyssynchrony. We scheduled him for an upgrade to a resynchronization device and Ruth on 12/04/2014 for a new RV and LV lead. His preadmission study showed an elevated TSH at 6.0 and an elevated BNP at 3720. A stress test done on 01/04/2015 showed the LAD and left main and circumflex to be patent. The circumflex was patent at the area of the previous stent. The RCA also had a patent stent. The RCA was dominant. He did have a 100% posterolateral branch occlusion. An echocardiogram done on 12/12/2014 showed his EF was 40% there is mild to moderate AI his left atrium was 5.4 cm PA pressure was better at 36. More recently had difficulties with progressive cough and fatigue. He lost a significant amount of weight. He had troubles with intractable coughing. We were concerned regarding amiodarone and this was ultimately discontinued. Even after stopping amiodarone and continue to have symptoms. Because some of his rates rapidly conducted we have increased his carvedilol. Recently we saw him in the office over the summer time on 11/11/2015 at that point he was doing reasonably well and most of the time was in an atrial arrhythmia. We tried to pace him out of atrial flutter at that time but only produced atrial fibrillation. Next I noted that his sedimentation rate was elevated at 60 and was wondering whether he could be switched from chronic prednisone to uloric to lower his uric acid. I was concerned about a vasculitic process that could be affecting his kidneys and lungs. He is now admitted with some chest pain, progressive edema, and a probable TIA. He has been on Eliquis but he was not sure that he was getting his carvedilol at the rehabilitation center. We interrogated his device today and in fact at times he develops a slower atrial tachycardia with rapid conduction that sometimes tracks. We changed him to the DDIR mode. His Optivol also shows volume overloaded and his activity level has dropped significantly. I would note that an echocardiogram done on June 17 showed rapidly conducted A. fib and overall EF of roughly 40%. Allergies/Medications Allergies: Coded Allergies: No Known Allergies (06/23/16) Home Med List: Allopurinol 100 MG TABLET 1 TAB PO DAILY GOUT Apixaban (Eliquis) 2.5 MG TABLET 1 TAB PO BID BLOOD THINNER (Reported) Budesonide/Formoterol Fumarate (Symbicort 160-4.5 Mcg Inhaler) 160 MCG-4.5 MCG/ ACTUATION HFA.AER.AD 2 PUF INH BID BREATHING PROBLEMS (Reported) Carvedilol (Coreg) 12.5 MG TABLET 1 TAB PO BID HTN Cyanocobalamin/FA/Pyridoxine (Folbic Tablet) 1 EACH TABLET 1 TAB PO DAILY SUPPLEMENT (Reported) Esomeprazole (Nexium) 40 MG CAPSULE.DR 1 CAP PO BID GI (Reported) Furosemide (Lasix) 40 MG TABLET 1 TAB PO BID EDEMA Levothyroxine Sodium 25 MCG TABLET 1 TAB PO DAILY AC THYROID Oxycodone HCl/Acetaminophen (Percocet 5-325 MG Tablet) 5 MG-325 MG TABLET 1-2 TAB PO Q4-6 PRN PAIN Polyethylene Glycol 3350 (Clearlax) 17 GRAM/DOSE POWDER 1 CAP PO DAILY GI ( Reported) Prednisone 5 MG TABLET GOUT (Reported) Sennosides/Docusate Sodium (Senna S Tablet) 8.6 MG-50 MG TABLET 2 TAB PO QPM CONSTIPATION (Reported) Simvastatin (Zocor*) 20 MG TABLET 1 TAB PO QPM CHOLESTEROL (Reported) Current Medications: Current Medications Sig/Jaswinder Start time Last Medication Dose Route Stop Time Status Admin Acetaminophen 650 MG .STK-MED ONE 07/05 210 DC PO 07/05 2105 Acetaminophen 650 MG Q6P PRN 07/04 1245 AC 07/05 PO 2107 Albuterol Sulfate 3 ML BID 07/04 2200 AC 07/06 INH 0807 Allopurinol 100 MG DAILY 07/04 1234 AC 07/06 PO 1012 Apixaban 2.5 MG BID 07/04 1235 AC 07/06 PO 1011 Aspirin Buffered 81 MG DAILY 07/04 1351 AC 07/06 PO 1011 Atorvastatin Calcium 80 MG 1700 07/05 1700 AC 07/06 PO 1652 Budesonide/ 2 PUF BID 07/04 1235 AC 07/06 Formoterol Fumarate INH 1011 Carvedilol 12.5 MG BID / 1235 AC 07/06 PO 1011 Furosemide 40 MG 7:30 AM, & 4:30 PM / 1630 AC 07/06 IV 1652 Levothyroxine Sodium 0.025 MG DAILY AC 07/05 0700 AC 07/06 PO 0620 Magnesium Oxide 400 MG ONE ONE 07/06 0945 DC 07/06 PO 07/06 0946 1409 Omeprazole 40 MG BID 07/04 2200 AC 07/06 PO 1012 Oxycodone/ 1 TAB Q6P PRN 07/04 1245 AC Acetaminophen PO Polyethylene Glycol 17 GM DAILY 07/05 1000 AC 07/06 PO 1012 Potassium Chloride 40 MEQ ONCE ONE 07/06 0915 DC 07/06 PO 07/06 0916 1409 Prednisone 5 MG DAILY 07/04 1236 AC 07/06 PO 1012 Senna/Docusate Sodium 2 TAB QPM 07/04 2200 AC PO Review of Systems Review of Systems Constitutional: Reports: malaise, weakness, unexplained weight loss. Cardiovascular: Reports: chest pain, edema, peripheral edema. Respiratory: Reports: cough, short of breath. Genitourinary: Reports: frequency. Musculoskeletal: Reports: muscle pain. All Other Systems: Reviewed and Negative Past History Travel History Traveled to [place] past 21 day No Medical History Neurological: STROKE EENT: cataracts Cardiovascular: AFIB, CHF, hypertension, hyperlipidemia, myocardial infarction Respiratory: NONE Gastrointestinal: GERD Hepatic: NONE Renal: ? 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 SISTER (CAD). Psychosocial History Where Do You Live? Residential Facility Services at Home: None Smoking Status: Former Smoker ETOH Use: denies use Illicit Drug Use: denies illicit drug use Functional Ability ADLs Independent: dressing, eating, toileting, bathing. Ambulation: independent, walker, non-ambulatory IADLs Independent: shopping, housework, finances, food prep, telephone, transportation , medication admin. Exam & Diagnostic Data Vital Signs and I&O Vital Signs Date Time Temp Pulse Resp B/P Pulse O2 O2 Flow FiO2 Ox Delivery Rate 07/06 1642 98.3 47 20 116/54 96 Nasal 3.0L Cannula 07/06 1011 69 120/64 07/06 0920 97.9 69 18 120/64 96 Nasal Cannula 07/06 0808 96 Nasal 1.0L Cannula 07/06 0800 96 Nasal 2.0L Cannula 07/06 0000 Nasal 2.0L Cannula 07/05 2108 68 108/48 07/06 2103 98.1 68 16 108/48 98 Nasal 2.0L Cannula 07/06 2043 97 Nasal 2.0L Cannula Intake & Output 07/06 1600 07/06 0800 07/06 0000 07/05 1600 07/05 0800 07/05 0000 Intake Total 680 100 600 480 490 Output Total 525 500 750 600 600 Balance 155 -400 -150 -120 -110 Intake, IV 10 Intake, Oral 680 100 600 480 480 Number 1 Bowel Movements Output, Urine 525 500 750 600 600 Patient 183 lb 183 lb 190 lb Weight Physical Exam: General: Appears comfortable For vital signs, see above. Irreg. irreg. Head: Normocephalic/atraumatic Eyes: No xanthelasma or scleral icterus Mouth: Moist mucous membranes without pallor or cyanosis Neck: No jugular venous distention, carotid bruits, thyromegaly Thorax/lungs: No chest deformity, lungs clear Cardiac: Normal S1, S2 without S3, S4, soft NIIDA, irreg. Abdomen: No tenderness or masses Extremities: No cyanosis, clubbing, trace edema now LE's, focal edema non-tender R forearm Neruo: Grossly nonfocal Skin: No major rashes Psychiatric: Normal mood and affect Labs/Pro Results: Laboratory Tests 07/06 07/05 0730 1220 Chemistry Sodium (137 - 145 mmol/L) 139 Potassium (3.5 - 5.1 mmol/L) 3.8 Chloride (98 - 107 mmol/L) 96 L Carbon Dioxide (22 - 30 mmol/L) 35 H Anion Gap (5 - 16) 8 BUN (9 - 20 mg/dL) 34 H Creatinine (0.7 - 1.2 mg/dL) 2.0 H Estimated GFR (>60 ml/min) 32 L BUN/Creatinine Ratio (7 - 25 %) 17.0 Magnesium (1.6 - 2.3 mg/dL) 1.7 Troponin I (<0.11 ng/ml) 0.10 Hematology CBC w Diff NO MAN DIFF REQ WBC (4.8 - 10.8 /CUMM) 9.8 RBC (4.70 - 6.10 /CUMM) 3.25 L Hgb (14.0 - 18.0 G/DL) 10.1 L Hct (42 - 52 %) 30.6 L MCV (80.0 - 94.0 FL) 94.0 MCH (27.0 - 31.0 PG) 30.9 RDW (11.5 - 14.5 %) 16.3 H Plt Count (130 - 400 /CUMM) 324 MPV (7.4 - 10.4 FL) 8.6 Gran % (42.2 - 75.2 %) 76.8 H Lymphocytes % (20.5 - 51.1 %) 15.2 L Monocytes % (1.7 - 9.3 %) 6.9 Eosinophils % (0 - 5 %) 0.4 Basophils % (0.0 - 2.0 %) 0.7 Absolute Granulocytes (1.4 - 6.5 /CUMM) 7.5 H Absolute Lymphocytes (1.2 - 3.4 /CUMM) 1.5 Absolute Monocytes (0.10 - 0.60 /CUMM) 0.7 H Absolute Eosinophils (0.0 - 0.7 /CUMM) 0 Absolute Basophils (0.0 - 0.2 /CUMM) 0.1 PUBS MCHC (33.0 - 37.0 G/DL) 32.9 L 07/05 02/ 03/04 0658 0600 2320 Chemistry Sodium (137 - 145 mmol/L) 138 Potassium (3.5 - 5.1 mmol/L) 4.1 Chloride (98 - 107 mmol/L) 98 Carbon Dioxide (22 - 30 mmol/L) 35 H Anion Gap (5 - 16) 5 BUN (9 - 20 mg/dL) 34 H Creatinine (0.7 - 1.2 mg/dL) 1.9 H Estimated GFR (>60 ml/min) 34 L BUN/Creatinine Ratio (7 - 25 %) 17.9 Magnesium (1.6 - 2.3 mg/dL) 1.9 Troponin I (<0.11 ng/ml) 0.11 *H Cancelled 0.10 Hematology CBC w Diff NO MAN DIFF REQ WBC (4.8 - 10.8 /CUMM) 9.7 RBC (4.70 - 6.10 /CUMM) 3.02 L Hgb (14.0 - 18.0 G/DL) 9.2 L Hct (42 - 52 %) 28.6 L MCV (80.0 - 94.0 FL) 94.4 H MCH (27.0 - 31.0 PG) 30.5 RDW (11.5 - 14.5 %) 16.2 H Plt Count (130 - 400 /CUMM) 302 MPV (7.4 - 10.4 FL) 8.5 Gran % (42.2 - 75.2 %) 76.5 H Lymphocytes % (20.5 - 51.1 %) 16.3 L Monocytes % (1.7 - 9.3 %) 5.9 Eosinophils % (0 - 5 %) 0.9 Basophils % (0.0 - 2.0 %) 0.4 Absolute Granulocytes (1.4 - 6.5 /CUMM) 7.4 H Absolute Lymphocytes (1.2 - 3.4 /CUMM) 1.6 Absolute Monocytes (0.10 - 0.60 /CUMM) 0.6 Absolute Eosinophils (0.0 - 0.7 /CUMM) 0.1 Absolute Basophils (0.0 - 0.2 /CUMM) 0 PUBS MCHC (33.0 - 37.0 G/DL) 32.3 L Diagnostic Data EKG Results Atrial fibrillation, currently mixture of conducted beats and biventricular paced beaats Assessment/Plan Assessment/Plan My assessment is that Mr. Ye is complicated. In terms of his arrhythmia situation his A. fib is conducting rapidly at times and at times he is tracking. We took care of the tracking issue by reprogramming him to the DDIR mode. He will sometimes slow to an atrial tachycardia with one-to-one conduction. I do not think we will achieve long- term rhythm control given his markedly enlarged left atrium although he does seem to have some periods of sinus rhythm even currently. We will thus need to achieve better rate control. I am recommending that his carvedilol be increased to 18.75 mg twice a day and I would add digoxin 0.125 mg 3 times per week. It is interesting that he has such severe CHF yet his EF is relatively well preserved. Some of his fluid accumulation may be due to his renal dysfunction. Hopefully rate control will improve his situation. He clearly needs fairly aggressive diuresis even at the expense of some renal dysfunction. One thing that could help would be be in addition of Entresto. We have seen outstanding results of this medication and I do think he would tolerate it from the blood pressure and renal standpoint.He had been on Cozaar. Dr. Vidales has planned DIVINA which is an great idea to find the source of his TIA. It could be that he had a left atrial thrombus despite Eliquis and if this is found we may have to increase his Eliquis the 5 mg twice a day or consider alternatives. It would also be interesting to see if he has any aortic atheroma. I'm wondering whether his simvastatin should be changed to a more potent statin. It is difficult to know whether or not he should have a cardiac catheterization. His cath in 2014 was not that impressive. I will leave this to Dr. Vidales. The patient does have underlying renal dysfunction. I am also concerned that he could have some sort of vasculitis. He has had markedly elevated C-reactive proteins and sedimentation rates of over 100. I am wondering whether he could have polymyalgia or some sort of vasculitis that is affecting his renal function. I'm wondering whether he could benefit from renal and rheumatology consults in this regard. I will discuss his case with Dr. Vidales. Copies To: FLAKO CARRERA,MAURICIO; FAUSTO CARERRA,SIMIN Dotson; BRICE CARRERA,Herberth FU; CHRYSTAL CARRERA,DOUGLAS Consult Acknowledgment - Thank you for your consult request.
[2016-07-06 22:00] VITALS: BP 110/52
--- NOTE | 2016-07-07 06:46 | PN- Housestaff ---
ZOLTAN CARRERA,JOSE 07/07/16 0646: Subjective Follow-up For: chest pain tia hypokalemia Tele-Events Since Last Visit: single pacing 71-95 PVCs BBB Subjective: Pt seen this morning, was sitting comfortably on the recliner, no distress. He reported feeling anxious aboute DIVINA last night, and was given ativan, but he was awoken at 2am and was having difficulty sleeping then. He has left arm swelling most likely due to IV infiltration that is nontender. He has right heel wound that is slightly tender, and left feel skin changes that is nontender. Wound care consulted, most likely due to chronic pressure injury, recc continuous offloading and avoid trauma. Can be dressed for protection but no wound care dressing required. If this fails to resolve lower extremity arterial ultrasound would be appropriate to exclude complicating getting peripheral vascular disease As per Dr. Richey's recc, we inc carvedilol to 18.75 bid and added dig 0.125, 3X /week. Pacemaker was interrogated and setting adjusted as per Dr. Richey's request. Dr. Richey also raised the need for possible rheum/renal consult for elevated CRP and ESR. Plan for DIVINA today, will reorder diet once he is back from surgery. He looks a little down today, and reports it is because he wants to be home to take care of his . Review of Systems Constitutional: Denies: chills, fever. EENTM: Denies: visual changes. Cardiovascular: Denies: chest pain, palpitations. Respiratory: Denies: cough, short of breath. Gastrointestinal: Denies: abdominal pain. Objective Last 24 Hrs of Vital Signs/I&O Vital Signs Date Time Temp Pulse Resp B/P Pulse O2 O2 Flow FiO2 Ox Delivery Rate 07/07 0809 92 Room Air Room Air 07/07 0748 97.9 88 20 115/70 92 Room Air 07/06 2200 98.2 86 18 110/52 93 Room Air 07/06 2135 86 110/52 07/06 1845 97 Nasal 1.0L Cannula 07/06 1642 98.3 47 20 116/54 96 Nasal 3.0L Cannula 07/06 1600 94 Nasal 1.0L Cannula 07/06 1011 69 120/64 07/06 0920 97.9 69 18 120/64 96 Nasal Cannula Intake & Output 07/07 1600 07/07 0800 07/07 0000 Intake Total 610 Output Total 125 600 Balance -125 10 Intake, IV 10 Intake, Oral 600 Output, Urine 125 600 Physical Exam General Appearance: Alert, Oriented X3, Cooperative, No Acute Distress Skin: No Significant Lesion HEENT: Atraumatic Neck: Supple Lymphatic: Axillary nl, Cervical nl Cardiovascular: Regular Rate, Normal S1, Normal S2, No Murmurs Lungs: Clear to Auscultation, Normal Air Movement Abdomen: Normal Bowel Sounds, Soft, No Tenderness Extremities: trace pedal edema, left arm swelling, nontender, right heel blister , slightly tender, left heel chronic skin change, nontender Current Medications: Current Medications Sig/Jaswinder Start time Last Medication Dose Route Stop Time Status Admin Acetaminophen 650 MG Q6P PRN 07/04 1245 AC 07/05 PO 2107 Albuterol Sulfate 3 ML BID 07/04 2200 AC 07/07 INH 0805 Allopurinol 100 MG DAILY 07/04 1234 AC 07/06 PO 1012 Apixaban 2.5 MG BID 07/04 1235 AC 07/06 PO 2135 Aspirin Buffered 81 MG DAILY 07/04 1351 AC 07/06 PO 1011 Atorvastatin Calcium 80 MG 1700 07/05 1700 AC 07/06 PO 1652 Budesonide/ 2 PUF BID 07/04 1235 AC 07/06 Formoterol Fumarate INH 2135 Carvedilol 18.75 MG BID 07/06 2200 AC 07/06 PO 2135 Carvedilol 12.5 MG BID 07/04 1235 DC 07/06 PO 1011 Digoxin 0.125 MG TUES THURS SAT 07/07 1000 AC PO Furosemide 40 MG 7:30 AM, & 4:30 PM 07/04 1630 AC 07/07 IV 0845 Levothyroxine Sodium 0.025 MG DAILY AC 07/05 0700 AC 07/07 PO 0615 Lorazepam 0.5 MG ONCE ONE 07/06 2044 DC 07/06 IV 07/06 2045 2135 Magnesium Oxide 400 MG ONE ONE 07/06 0945 DC 07/06 PO 07/06 0946 1409 Omeprazole 40 MG BID 07/04 2200 AC 07/06 PO 2135 Oxycodone/ 1 TAB Q6P PRN 07/04 1245 AC Acetaminophen PO Polyethylene Glycol 17 GM DAILY 07/05 1000 AC 07/06 PO 1012 Potassium Chloride 40 MEQ ONCE ONE 07/06 0915 DC 07/06 PO 07/06 0916 1409 Prednisone 5 MG DAILY 07/04 1236 AC 07/06 PO 1012 Senna/Docusate Sodium 2 TAB QPM 07/04 2200 AC PO Assessment/Plan Assessment: Mr. Ye is a pleasant 85-year-old male with known history of CAD status post 7 stent placement, A. fib status post pacemaker and defibrillator placement a year ago, systolic heart failure (HFrEF) with EF of 40%, COPD, hypertension who was recently discharged from [facility] after treatment of community- acquired pneumonia and congestive heart failure was sent from [facility] after he developed acute onset left-sided chest pain squeezing in nature associated with dizziness and shortness of breath. He is currently admitted to the telemetry floor and the following is the management: # Chest pain (resolved) likely demand ischemia - Minimally elevated troponin (max 0.12) with no significant ST/T wave changes - Echo: The left ventricular chamber size is normal with global hypokinesia and an ejection fraction of approximately 45%. A followup examination is suggested when the patient's heart rate is better controlled to reassess LV function. Mild tricuspid insufficiency is present with mild pulmonary hypertension * Cardio consult appreciated * Nuclear stress test ? Cath? # TIA - transient left sided weakness (resolved): Sxs resolved/no current neuro deficits - Carotid doplper: The right internal carotid artery shows no hemodynamically significant stenosis. The left internal carotid artery shows no hemodynamically significant stenosis. Internal carotid artery stenoses fall in the 0-49% category by duplex Doppler velocity spectral waveform analysis. - Head CT negative * Continue ASA, increase lipitor to 80 mg PO daily * DIVINA 07/07,npo past midnight # Atrial fibrillation s/p PPM placement, up to 24 beat run (asymptomatic) * Cardio consult appreciated * Continue eliquis 2.5 mg PO BID (dose adjusted due to age and cre), consider inc to 5 bid or change to another anticoagulant * Increased coreg to 18.75 bid * Started digoxin 0.125, 3X/week * Pacemaker interrogated 07/06, settings adjusted * Appreciate Dr. Richey's recc * 07/06: K 3.8, given 1 X kdur. mag 1.7, given 1X mag ox. awaiting f/u labs # Elevated CRP and ESR, ? vasculitis affecting renal function - CRP 8.2 in Apr 2016, >15 in May 2016 - ESR 110 in May 2016 * Appreciate renal consult (also would like to know if we can inc eliquis or change anticoag) * Consider rheum consult # Left arm swelling most likely due to IV infiltration that is nontender # Right heel wound that is slightly tender, and left feel skin changes that is nontender - Wound care consulted, most likely due to chronic pressure injury * Recc continuous offloading and avoid trauma. Can be dressed for protection but no wound care dressing required. * If this fails to resolve lower extremity arterial ultrasound would be appropriate to exclude complicating getting peripheral vascular disease * PT evaluation # Systolic CHF * Bilateral lower extremity edema without any overt signs of pulmonary edema on clinical exam * Elevate legs * Lasic 40 mg IV BID * Strict Is/Os, daily weights * Consider entresto # Leukocytosis (resolved) - Mild leukocytosis of 11,100 on admission without evidence of focal infection ( denies any productive cough, fever, chills, urinary burning or pain) - CXR revealed new patchy reticular nodular airspace opacity questionable for pneumonia versus atelectasis * Hold off Abx for now # COPD * Continue home inhalers * Home prednisone daily # HLD * Change simvastatin to a more potent statin Diet: NPO --> CHF diet after DIVINA DVTP: ykaw Brooks Mild pain pathway FULL CODE Problem List: 1. CHF (congestive heart failure) 2. TIA (transient ischemic attack) Pain Ratin Pain Location: none Pain Goal: Remain pain free Pain Plan: none Tomorrow's Labs & Rationales: bep and mag for hypokalemia and hypomag DVT/Prophylaxis: mechanical, pharmacological Consulting Request: Consulting Specialty: Cardiology Consulting Physician: Obey Vidales MD Reason for Consult: chest pain FLAKO CARRERA,MAURICIO 07/07/16 1048: Attending MD Review Statement Attending Statement Attending MD Statement: examined this patient, discuss w/resident/PA/UTILITY MECHANIC SUPERVISOR, agreed w/resident/PA/UTILITY MECHANIC SUPERVISOR, reviewed EMR data (avail) Attending Assessment/Plan: 85M PMH CAD s/p multiple stents, chronic atrial fibrillation s/p AICD/PPM, systolic heart failure (HFrEF) with EF of 40%, COPD, HTN admitted with chest pain and shortness of breath in the setting of rapid atrial fibrillation and NSTEMI. On 07/05 patient had TIA symptoms with left sided weakness that resolved after a few minutes and has not yet recurred. No complaints today. Vitals stable, troponin has peaked. Plan - Continue on telemetry - Device interrogation complete - DIVINA - NPO after midnight - Follow cardiology recommendations - Continue ASA and high dose statin - Follow neurology recommendations - Continue Eliquis
--- NOTE | 2016-07-07 07:45 | ECHOCARDIOGRAM REPORT ---
HESHAM CARLOS Age: 85 : 1930 Gender: M Exam Date: 07/06/2016 10:13 Exam Location: [address] Ht (in): 66 Wt (lb): 183 BSA: 1.99 BP: 108 / 48 Ordering Physician: NAOMI FERNANDEZ MD Referring Physician: NAOMI FERNANDEZ MD Technologist: David Barriga [facility] Room Number: 189-2 Indications: STROKE Rhythm: Atrial fibrillation Technical Quality: Fair FINDINGS Left Ventricle Normal size left ventricle. Mildly reduced global left ventricular systolic function. Mildly abnormal left ventricular ejection fraction estimated at 45-50%. Right Ventricle Right ventricle not well visualized, grossly normal. Right Atrium Right atrial dilatation. Left Atrium Moderate to severe left atrial dilatation. Mitral Valve Mitral valve thickened. Mild mitral regurgitation. Aortic Valve Trileaflet aortic valve. Diffuse thickening (sclerosis) of the aortic valve cusps without reduced excursion. No aortic stenosis. [id number] aortic regurgitation. Tricuspid Valve Tricuspid valve not well visualized, grossly normal. Mild tricuspid regurgitation. Right ventricular systolic pressure estimated to be elevated at 48 mmHg. Pulmonic Valve Pulmonic valve not well visualized, grossly normal. Pericardium No pericardial effusion. Great Vessels Aortic root and proximal ascending aorta not well visualized, grossly normal. CONCLUSIONS 1. THis was a technically difficult examinaton due to the patient's elevated heart rate. 2. Mild to moderate aortic sclerosis is present with mild to moderate aortic insufficiency. 3. Mitral leaflet thickening is present with mild mitral insufficiency and moderate to severe left atrial enlargement. 4. There is no pericardial fluis detected. 5. The left ventricular chamber size is normal with global hypokinesia and an ejection fraction of approximately 45%. A followup examination is suggested when the patient's heart rate is better controlled to reassess LV function 6. Mild tricuspid insufficiency is present with mild pulmonary hypertension 7. Pacemaker wires are present in the right heart chambers. Obey Vidales M.D. (Electronically Signed) Final Date: 07 July 2016 07:44 MEASUREMENTS (Male / Female) Normal Values 2D ECHO LV Diastolic Diameter PLAX 5.6 cm 4.2 - 5.9 / 3.9 - 5.3 cm LV Systolic Diameter PLAX 4.5 cm 2.1 - 4.0 cm LV Fractional Shortening PLAX 19.6 % 25 - 46 % LV Ejection Fraction 2D Teich 39.8 % IVS Diastolic Thickness 1.0 cm LVPW Diastolic Thickness 1.0 cm LV Relative Wall Thickness 0.4 LVOT Diameter 2.1 cm Aortic Root Diameter 2.9 cm LA Systolic Diameter LX 4.5 cm 3.0 - 4.0 / 2.7 - 3.8 cm LA Volume 76.0 cm 18 - 58 / 22 - 52 cm Ascending Aorta Diameter 2.9 cm DOPPLER AV Peak Velocity 88.2 cm/s AV Peak Gradient 3.1 mmHg AV Mean Velocity 60.1 cm/s AV Mean Gradient 2.0 mmHg AV Velocity Time Integral 13.9 cm AI Deceleration Cole 203.5 cm/s AI Peak Velocity 339.0 cm/s AI Pressure Half Time 491.5 ms AI Peak Gradient 46.0 mmHg LVOT Peak Velocity 64.8 cm/s LVOT Peak Gradient 1.7 mmHg LVOT Mean Velocity 39.2 cm/s LVOT Mean Gradient 1.0 mmHg LVOT Velocity Time Integral 11.1 cm LVOT Stroke Volume 38.4 cm AV Area Cont Eq vti 2.8 cm AV Area Cont Eq pk 2.5 cm MV Peak Velocity 103.0 cm/s MV Peak Gradient 4.2 mmHg MV Mean Velocity 53.6 cm/s MV Mean Gradient 2.0 mmHg Mitral E Point Velocity 81.9 cm/s MV PHT Velocity 107.0 cm/s MV Deceleration Cole 857.0 cm/s MV Pressure Half Time 37.5 ms MV Area PHT 5.9 cm MV Deceleration Time 151.0 ms MR Peak Velocity 392.0 cm/s MR Peak Gradient 61.5 mmHg TR Peak Velocity 327.0 cm/s TR Peak Gradient 42.8 mmHg Right Atrial Pressure 5.0 mmHg Pulmonary Artery Systolic Pressu 47.8 mmHg Right Ventricular Systolic Press 47.8 mmHg PV Peak Velocity 96.5 cm/s PV Peak Gradient 3.7 mmHg PV Mean Velocity 70.0 cm/s PV Mean Gradient 2.0 mmHg PV Velocity Time Integral 23.5 cm LV E' Lateral Velocity 8.5 cm/s Mitral E to LV E' Lateral Ratio 9.7 LV E' Septal Velocity 4.9 cm/s Mitral E to LV E' Septal Ratio 16.8
[2016-07-07 07:48] VITALS: BP 115/70
--- NOTE | 2016-07-07 08:30 | Cons- Wound Care ---
General Information and HPI Consulting Request Date of Consult: 07/07/16 Requested By: MAURICIO ARRIOLA MD Reason for Consult: Right heel pressure injury blister present on admission History of Present Illness: Patient is an 85-year-old gentleman with history of CHF cardiac arrhythmias syncope TIA admitted for possible TIA. Was found to have a blister over the lateral aspect of his right heel present on admission. He reports having had this for some time while at short-term rehabilitation. He denies knowledge of, getting peripheral vascular disease. Allergies/Medications Allergies: Coded Allergies: No Known Allergies (06/23/16) Home Med List: Allopurinol 100 MG TABLET 1 TAB PO DAILY GOUT Apixaban (Eliquis) 2.5 MG TABLET 1 TAB PO BID BLOOD THINNER (Reported) Budesonide/Formoterol Fumarate (Symbicort 160-4.5 Mcg Inhaler) 160 MCG-4.5 MCG/ ACTUATION HFA.AER.AD 2 PUF INH BID BREATHING PROBLEMS (Reported) Carvedilol (Coreg) 12.5 MG TABLET 1 TAB PO BID HTN Cyanocobalamin/FA/Pyridoxine (Folbic Tablet) 1 EACH TABLET 1 TAB PO DAILY SUPPLEMENT (Reported) Esomeprazole (Nexium) 40 MG CAPSULE.DR 1 CAP PO BID GI (Reported) Furosemide (Lasix) 40 MG TABLET 1 TAB PO BID EDEMA Levothyroxine Sodium 25 MCG TABLET 1 TAB PO DAILY AC THYROID Oxycodone HCl/Acetaminophen (Percocet 5-325 MG Tablet) 5 MG-325 MG TABLET 1-2 TAB PO Q4-6 PRN PAIN Polyethylene Glycol 3350 (Clearlax) 17 GRAM/DOSE POWDER 1 CAP PO DAILY GI ( Reported) Prednisone 5 MG TABLET GOUT (Reported) Sennosides/Docusate Sodium (Senna S Tablet) 8.6 MG-50 MG TABLET 2 TAB PO QPM CONSTIPATION (Reported) Simvastatin (Zocor*) 20 MG TABLET 1 TAB PO QPM CHOLESTEROL (Reported) Review of Systems Review of Systems: He denies claudication Past History Travel History Traveled to [place] past 21 day No Medical History Neurological: STROKE EENT: cataracts Cardiovascular: AFIB, CHF, hypertension, hyperlipidemia, myocardial infarction Respiratory: NONE Gastrointestinal: GERD Hepatic: NONE Renal: ? 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 SISTER (CAD). Psychosocial History Where Do You Live? [place] Facility Services at Home: None Smoking Status: Former Smoker ETOH Use: denies use Illicit Drug Use: denies illicit drug use Functional Ability ADLs Independent: dressing, eating, toileting, bathing. Ambulation: independent, walker, non-ambulatory IADLs Independent: shopping, housework, finances, food prep, telephone, transportation , medication admin. Exam & Diagnostic Data Vital Signs and I&O Vital Signs Result Date Time Pulse Ox 92 07/07 808 O2 Delivery Room Air 07/07 808 O2 Flow Rate Room Air 07/07 808 B/P 115/70 07/08 747 Temp 97.9 07/08 747 Pulse 88 07/08 747 Resp 20 07/08 747 Intake & Output 07/07 0000 07/06 1600 07/06 0800 Intake Total 610 680 100 Output Total 600 525 500 Balance 10 155 -400 Intake, IV 10 Intake, Oral 600 680 100 Output, Urine 600 525 500 Patient 183 lb Weight Exam of the right heel shows there to be a intact fluid-filled blister blister approximately 4 x 3 cm there is no periwound erythema there is no drainage the overlying skin is intact. The posterior tibial pulses unable to be palpated. 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 Recommend continuous offloading and avoidance of trauma. The area can be dressed for protection but no specific wound care dressing is required. If this fails to resolve lower extremity arterial ultrasound would be appropriate to exclude complicating getting peripheral vascular disease Consult Acknowledgment - Thank you for your consult request.
--- NOTE | 2016-07-07 12:10 | Cons- Nephrology ---
General Information and HPI Consulting Request Date of Consult: 07/07/16 Requested By: MAURICIO ARRIOLA MD Reason for Consult: CKD Source of Information: patient, old records Exam Limitations: no limitations History of Present Illness: The patient is an 85-year-old male with a past medical history most significant for minimally proteinuric Stage IV CKD with a baseline SCr ~1.6-2.2, ischemic cardiomyopathy with an ejection fraction 40-45%, TIA, lung cancer status post right lobe resection, prostate cancer, hypothyroidism, mekel cell carcinoma status post resection, gout, hypertension, COPD who presented on 07/04 with chest pain. Presentation, his troponin was at baseline of 0.12 and has remained stable. EKG was noted to have paced rhythm. He was found to have evidence of fluid overload and lower extremity edema for which he was started on IV Lasix (Chest x-ray with low lung volumes and patchy reticulonodual airspace opacities at bases) - he has been getting 40mg IV lasix BID. Chest pain noted to resolve. Echocardiogram performed with ejection fraction 45%. Hospital course complicated by left arm weakness thought to possibly be TIA (seen by Neurology as well). CT was negative. There was some question of whether he could have a vasculitis as the underlying cause of his renal disease given thathe had an elevated CRP/ESR. His urine sediment has been bland with minimal cells. Last renal U/S was in 2014 - R kidney 9.6cm, L kidney 9.7cm (noted to be decreased in size from 2011 ultrasound). During this hospitalization, his SCr has slowly risen from 1.8->2.1. No renal imaging. Urine sediment bland. SBP has been relatively low - 100's-110's. No RAAS inhibition. His weight is down 6lbs with diuresis to 183 although the patient says that his weight has been closer to 160lbs (in our outpatient records it has been mostly ~190lbs). The patient sees Dr. Dowd as an outpatient - last visit was in January of 2016. 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 Allergies/Medications Allergies: Coded Allergies: No Known Allergies (06/23/16) Home Med List: Allopurinol 100 MG TABLET 1 TAB PO DAILY GOUT Apixaban (Eliquis) 2.5 MG TABLET 1 TAB PO BID BLOOD THINNER (Reported) Budesonide/Formoterol Fumarate (Symbicort 160-4.5 Mcg Inhaler) 160 MCG-4.5 MCG/ ACTUATION HFA.AER.AD 2 PUF INH BID BREATHING PROBLEMS (Reported) Carvedilol (Coreg) 12.5 MG TABLET 1 TAB PO BID HTN Cyanocobalamin/FA/Pyridoxine (Folbic Tablet) 1 EACH TABLET 1 TAB PO DAILY SUPPLEMENT (Reported) Esomeprazole (Nexium) 40 MG CAPSULE.DR 1 CAP PO BID GI (Reported) Furosemide (Lasix) 40 MG TABLET 1 TAB PO BID EDEMA Levothyroxine Sodium 25 MCG TABLET 1 TAB PO DAILY AC THYROID Oxycodone HCl/Acetaminophen (Percocet 5-325 MG Tablet) 5 MG-325 MG TABLET 1-2 TAB PO Q4-6 PRN PAIN Polyethylene Glycol 3350 (Clearlax) 17 GRAM/DOSE POWDER 1 CAP PO DAILY GI ( Reported) Prednisone 5 MG TABLET GOUT (Reported) Sennosides/Docusate Sodium (Senna S Tablet) 8.6 MG-50 MG TABLET 2 TAB PO QPM CONSTIPATION (Reported) Simvastatin (Zocor*) 20 MG TABLET 1 TAB PO QPM CHOLESTEROL (Reported) Current Medications: Current Medications Sig/Jaswinder Start time Last Medication Dose Route Stop Time Status Admin Acetaminophen 650 MG Q6P PRN 07/04 1245 AC 07/05 PO 2107 Albuterol Sulfate 3 ML BID 07/04 2200 AC 07/07 INH 0805 Allopurinol 100 MG DAILY 07/04 1234 AC 07/07 PO 1027 Apixaban 2.5 MG BID 07/04 1235 AC 07/07 PO 1026 Aspirin Buffered 81 MG DAILY 07/04 1351 AC 07/07 PO 1026 Atorvastatin Calcium 80 MG 1700 / 1700 AC 07/06 PO 1652 Budesonide/ 2 PUF BID / 1235 AC 07/07 Formoterol Fumarate INH 1125 Carvedilol 18.75 MG BID 07/06 2200 AC 07/07 PO 1026 Carvedilol 12.5 MG BID 07/04 1235 DC 07/06 PO 1011 Digoxin 0.125 MG TUES THURS SAT 07/07 1000 AC 07/07 PO 1026 Furosemide 40 MG 7:30 AM, & 4:30 PM 07/04 1630 AC 07/07 IV 0845 Levothyroxine Sodium 0.025 MG DAILY AC 07/05 0700 AC 07/07 PO 0615 Lorazepam 0.5 MG ONCE ONE 07/06 2045 DC 07/06 IV 07/06 Omeprazole 40 MG BID 07/04 2200 AC 07/07 PO 1027 Oxycodone/ 1 TAB Q6P PRN 07/04 1245 AC Acetaminophen PO Polyethylene Glycol 17 GM DAILY 07/05 1000 AC 07/06 PO 1012 Potassium Chloride 40 MEQ ONCE ONE 07/07 1200 DC PO 07/07 1201 Prednisone 5 MG DAILY 07/04 1236 AC 07/07 PO 1027 Senna/Docusate Sodium 2 TAB QPM 07/04 2200 AC PO Review of Systems Review of Systems: Complete 14 point ROS neg except as per HPI Past History Travel History Traveled to [place] past 21 day No Medical History Neurological: STROKE EENT: cataracts Cardiovascular: AFIB, CHF, hypertension, hyperlipidemia, myocardial infarction Respiratory: NONE Gastrointestinal: GERD Hepatic: NONE Renal: ? 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 SISTER (CAD). Psychosocial History Where Do You Live? [place] Facility Services at Home: None Smoking Status: Former Smoker ETOH Use: denies use Illicit Drug Use: denies illicit drug use Functional Ability ADLs Independent: dressing, eating, toileting, bathing. Ambulation: independent, walker, non-ambulatory IADLs Independent: shopping, housework, finances, food prep, telephone, transportation , medication admin. Exam & Diagnostic Data Vital Signs and I&O Vital Signs Date Time Temp Pulse Resp B/P Pulse O2 O2 Flow FiO2 Ox Delivery Rate 07/07 1026 118/72 07/07 1026 118/78 07/07 0809 92 Room Air Room Air 07/07 0748 97.9 88 20 115/70 92 Room Air 07/06 2200 98.2 86 18 110/52 93 Room Air 07/065 86 110/52 07/06 1845 97 Nasal 1.0L Cannula 07/06 1642 98.3 47 20 116/54 96 Nasal 3.0L Cannula 07/06 1600 94 Nasal 1.0L Cannula Intake & Output 07/07 04007/06 0400 Intake Total 610 780 600 480 490 Output Total 497 380 3675 750 600 600 Balance -125 10 -245 -150 -120 -110 Intake, IV 10 10 Intake, Oral 600 780 600 480 480 Number 1 Bowel Movements Output, Urine 726 885 1361 750 600 600 Patient 183 lb 183 lb 190 lb Weight Physical Exam: Gen - very pleasant, NAD Head - NCAT Eyes - EOMI, anicteric sclera Neck - JVP visible CV - RRR Chest - decreased BS L base Abd - soft, mildly distended Ext - 2+ pitting edema up to thighs Skin - no rash Neuro - AOX3 Results Pertinent Lab Results: Laboratory Tests 07/07 07/06 07/05 0938 0730 1220 Chemistry Sodium (137 - 145 mmol/L) 139 139 Potassium (3.5 - 5.1 mmol/L) 3.8 3.8 Chloride (98 - 107 mmol/L) 94 L 96 L Carbon Dioxide (22 - 30 mmol/L) 37 H 35 H Anion Gap (5 - 16) 8 8 BUN (9 - 20 mg/dL) 32 H 34 H Creatinine (0.7 - 1.2 mg/dL) 2.1 H 2.0 H Estimated GFR (>60 ml/min) 30 L 32 L BUN/Creatinine Ratio (7 - 25 %) 15.2 17.0 Magnesium (1.6 - 2.3 mg/dL) 1.9 1.7 Troponin I (<0.11 ng/ml) 0.10 Hematology CBC w Diff NO MAN DIFF REQ WBC (4.8 - 10.8 /CUMM) 9.8 RBC (4.70 - 6.10 /CUMM) 3.25 L Hgb (14.0 - 18.0 G/DL) 10.1 L Hct (42 - 52 %) 30.6 L MCV (80.0 - 94.0 FL) 94.0 MCH (27.0 - 31.0 PG) 30.9 RDW (11.5 - 14.5 %) 16.3 H Plt Count (130 - 400 /CUMM) 324 MPV (7.4 - 10.4 FL) 8.6 Gran % (42.2 - 75.2 %) 76.8 H Lymphocytes % (20.5 - 51.1 %) 15.2 L Monocytes % (1.7 - 9.3 %) 6.9 Eosinophils % (0 - 5 %) 0.4 Basophils % (0.0 - 2.0 %) 0.7 Absolute Granulocytes (1.4 - 6.5 /CUMM) 7.5 H Absolute Lymphocytes (1.2 - 3.4 /CUMM) 1.5 Absolute Monocytes (0.10 - 0.60 /CUMM) 0.7 H Absolute Eosinophils (0.0 - 0.7 /CUMM) 0 Absolute Basophils (0.0 - 0.2 /CUMM) 0.1 PUBS MCHC (33.0 - 37.0 G/DL) 32.9 L 03/ 03/ 03/04 0658 0600 2320 Chemistry Sodium (137 - 145 mmol/L) 138 Potassium (3.5 - 5.1 mmol/L) 4.1 Chloride (98 - 107 mmol/L) 98 Carbon Dioxide (22 - 30 mmol/L) 35 H Anion Gap (5 - 16) 5 BUN (9 - 20 mg/dL) 34 H Creatinine (0.7 - 1.2 mg/dL) 1.9 H Estimated GFR (>60 ml/min) 34 L BUN/Creatinine Ratio (7 - 25 %) 17.9 Magnesium (1.6 - 2.3 mg/dL) 1.9 Troponin I (<0.11 ng/ml) 0.11 *H Cancelled 0.10 Hematology CBC w Diff NO MAN DIFF REQ WBC (4.8 - 10.8 /CUMM) 9.7 RBC (4.70 - 6.10 /CUMM) 3.02 L Hgb (14.0 - 18.0 G/DL) 9.2 L Hct (42 - 52 %) 28.6 L MCV (80.0 - 94.0 FL) 94.4 H MCH (27.0 - 31.0 PG) 30.5 RDW (11.5 - 14.5 %) 16.2 H Plt Count (130 - 400 /CUMM) 302 MPV (7.4 - 10.4 FL) 8.5 Gran % (42.2 - 75.2 %) 76.5 H Lymphocytes % (20.5 - 51.1 %) 16.3 L Monocytes % (1.7 - 9.3 %) 5.9 Eosinophils % (0 - 5 %) 0.9 Basophils % (0.0 - 2.0 %) 0.4 Absolute Granulocytes (1.4 - 6.5 /CUMM) 7.4 H Absolute Lymphocytes (1.2 - 3.4 /CUMM) 1.6 Absolute Monocytes (0.10 - 0.60 /CUMM) 0.6 Absolute Eosinophils (0.0 - 0.7 /CUMM) 0.1 Absolute Basophils (0.0 - 0.2 /CUMM) 0 PUBS MCHC (33.0 - 37.0 G/DL) 32.3 L 07/04 03/ 1800 1657 Chemistry Troponin I (<0.11 ng/ml) 0.11 *H Urines Urine Color (YEL,AMB,STR) YEL Urine Clarity (CLEAR) CLEAR Urine pH (5.0 - 8.0) 6.5 Ur Specific Crosby (1.001 - 1.035) 1.010 Urine Protein (NEG,<30 MG/DL) NEG Urine Ketones (NEG) NEG Urine Nitrite (NEG) NEG Urine Bilirubin (NEG) NEG Urine Urobilinogen (0.1 - 1.0 EU/dl) 0.2 Ur Leukocyte Esterase (NEG) NEG Ur Microscopic EXAM NOT REQUIRED Urine Hemoglobin (NEG) NEG Urine Glucose (N MG/DL) NEG Imaging/Other Studies: TTE CONCLUSIONS 1. THis was a technically difficult examinaton due to the patient's elevated heart rate. 2. Mild to moderate aortic sclerosis is present with mild to moderate aortic insufficiency. 3. Mitral leaflet thickening is present with mild mitral insufficiency and moderate to severe left atrial enlargement. 4. There is no pericardial fluis detected. 5. The left ventricular chamber size is normal with global hypokinesia and an ejection fraction of approximately 45%. A followup examination is suggested when the patient's heart rate is better controlled to reassess LV function 6. Mild tricuspid insufficiency is present with mild pulmonary hypertension 7. Pacemaker wires are present in the right heart chambers. EXAM TYPE: RAD - XRY-PORTABLE CHEST XRAY EXAMINATION: XR PORTABLE CHEST CLINICAL INFORMATION: 85-year-old man with chest pain and shortness of breath. COMPARISON: 06/29/2016 chest radiograph TECHNIQUE: Portable AP view of the chest was obtained. FINDINGS: Lung volumes are quite low. There is patchy new reticulonodular airspace opacity at both lung bases that could reflect early pulmonary edema versus atelectasis/pneumonia. Moderate cardiomegaly post left sided 3-lead pacemaker placement is unchanged. There may be small bilateral effusions. IMPRESSION: Limited due to low lung volumes. New bibasilar opacities could reflect pulmonary edema with small effusions versus early consolidation/atelectasis. Assessment/Plan Assessment/Recommendations Assessment: Stage III/IV CKD - Nonproteinuric - thought to be hypertensive nephrosclerosis and from vascular disease. Given bland urine sediment, unlikely to be glomerulonephritis/vasculitis. MADONNA - Baseline renal function has been very fluctuant in past, likely reflective of volume status. This may also be in part a result of his rhythm issues which are being titrated. He has a significant amount of peripheral edema. Eventhough his creatinine is slightly up, I would not stop diuresis. Anemia - Hg at goal Elevated bicarb - Should get blood gas to make sure that this is a primary metabolic process and not compensation for a respiratory process. If this is metabolic, I would recommend acetazolamide. Recommendations: -Would cont 40mg IV lasix BID as you are -Would get blood gas - if c/w metabolic alkalosis, would dose acetazolamide 250mg -OK to use entresto, but may want to wait until renal function stabilizes given the ARB component -Daily weights -If SCr significantly increases, would document PVR Please call [phone] with ?'s
--- NOTE | 2016-07-07 14:08 | PN- Cardiology ---
Subjective Subjective: The patient reports that he is feeling so well.. The prior left arm weakness has resolved. No chest pain. No palpitations. No shortness of breath. No diaphoresis. Objective Vital Signs and I&Os Vital Signs Date Time Temp Pulse Resp B/P Pulse O2 O2 Flow FiO2 Ox Delivery Rate 07/07 1026 118/72 07/07 1026 118/78 07/07 0809 92 Room Air Room Air 07/07 0748 97.9 88 20 115/70 92 Room Air 07/06 2200 98.2 86 18 110/52 93 Room Air 07/06 2135 86 110/52 07/06 1845 97 Nasal 1.0L Cannula 07/06 1642 98.3 47 20 116/54 96 Nasal 3.0L Cannula 07/06 1600 94 Nasal 1.0L Cannula Intake & Output 07/07 1600 07/07 0800 / 0000 07/06 1600 07/06 0800 07/06 0000 Intake Total 610 680 100 600 Output Total 125 600 525 500 750 Balance -125 10 155 -400 -150 Intake, IV 10 Intake, Oral 600 680 100 600 Output, Urine 125 600 525 500 750 Patient 183 lb Weight Physical Exam: Gen: The patient is in no acute distress HEENT: Normal nose, ears, and oropharynx. Pupils equal bilaterally. Conjunctiva normal. Neck: Supple with no JVD, no masses, and no thyromegaly Lungs: There are to auscultation with normal respiratory effort Heart: Irregularly irregular, S1, S2, 2/6 systolic murmur. 2+ peripheral edema, 2+ pulses in the lower extremities bilaterally Abdomen: Soft, nontender, no masses. No hepatomegaly. No splenomegaly Extremities: No clubbing or cyanosis. Normal muscle strength in the upper and lower extremities Skin: Normal skin turgor with no skin ulcers or lesions noted. Current Medications: Current Medications Sig/Jaswinder Start time Last Medication Dose Route Stop Time Status Admin Acetaminophen 650 MG Q6P PRN 07/04 1245 AC 07/05 PO 2107 Albuterol Sulfate 3 ML BID 07/04 2200 AC 07/07 INH 0805 Allopurinol 100 MG DAILY 07/04 1234 AC 07/07 PO 1027 Apixaban 2.5 MG BID 07/04 1235 AC 07/07 PO 1026 Aspirin Buffered 81 MG DAILY 07/04 1351 AC 07/07 PO 1026 Atorvastatin Calcium 80 MG 1700 07/05 1700 AC 07/06 PO 1652 Budesonide/ 2 PUF BID 07/04 1235 AC 07/07 Formoterol Fumarate INH 1125 Carvedilol 18.75 MG BID 07/06 2200 AC 07/07 PO 1026 Carvedilol 12.5 MG BID 07/04 1235 DC 07/06 PO 1011 Digoxin 0.125 MG TUES THURS SAT 07/07 1000 AC 07/07 PO 1026 Furosemide 40 MG 7:30 AM, & 4:30 PM 07/04 1630 AC 07/07 IV 0845 Levothyroxine Sodium 0.025 MG DAILY AC 07/05 0700 AC 07/07 PO 0615 Lorazepam 0.5 MG ONCE ONE 07/06 2044 DC 07/06 IV 07/065 Omeprazole 40 MG BID 07/04 2200 AC 07/07 PO 1027 Oxycodone/ 1 TAB Q6P PRN 07/04 1245 AC Acetaminophen PO Patient Medication 1 ED .STK-MED ONE 07/07 1403 VT Teaching ED 07/07 1404 Polyethylene Glycol 17 GM DAILY 07/05 1000 AC 07/06 PO 1012 Potassium Chloride 40 MEQ ONCE ONE 07/07 1200 DC 07/07 PO 07/07 1201 1323 Prednisone 5 MG DAILY 07/04 1236 AC 07/07 PO 1027 Senna/Docusate Sodium 2 TAB QPM 07/04 2200 AC PO Results Last 48 Hrs of Labs/Mics: Laboratory Tests 07/07/16 0938: Anion Gap 8, Estimated GFR 30 L, BUN/Creatinine Ratio 15.2, Magnesium 1.9 07/06/16 0730: Anion Gap 8, Estimated GFR 32 L, BUN/Creatinine Ratio 17.0, Magnesium 1.7, CBC w Diff NO MAN DIFF REQ, RBC 3.25 L, MCV 94.0, MCH 30.9, RDW 16.3 H, MPV 8.6, Gran % 76.8 H, Lymphocytes % 15.2 L, Monocytes % 6.9, Eosinophils % 0.4, Basophils % 0.7, Absolute Granulocytes 7.5 H, Absolute Lymphocytes 1.5, Absolute Monocytes 0.7 H, Absolute Eosinophils 0, Absolute Basophils 0.1, PUBS MCHC 32.9 L Recent Imaging Studies: Echo 07/07/16: 1. THis was a technically difficult examinaton due to the patient's elevated heart rate. 2. Mild to moderate aortic sclerosis is present with mild to moderate aortic insufficiency. 3. Mitral leaflet thickening is present with mild mitral insufficiency and moderate to severe left atrial enlargement. 4. There is no pericardial fluis detected. 5. The left ventricular chamber size is normal with global hypokinesia and an ejection fraction of approximately 45%. A followup examination is suggested when the patient's heart rate is better controlled to reassess LV function 6. Mild tricuspid insufficiency is present with mild pulmonary hypertension 7. Pacemaker wires are present in the right heart chambers. Assessment/Plan Assessment/Plan Assessment: 1. Chest pain; rule out ACS; minimallly elevated troponin 2. Probable TIA with left upper extremity weakness 3. Atrial fibrillation with episodes of elevated ventricular rate -the patient has known atrial fibrillation underlying his paced rhythm. Episodes of elevated rate have been noted. 4. History of CAD 5. Chronic renal insufficiency 6. Anemia 7. Elevated proBNP 8. Lorin cell tumor; s/p recent surgery. 9. LE edema / venous insufficiency. Plan: * Continue Eliquis 2.5 milligrams p.o. b.i.d. * Continue other cardiac medications. * DIVINA tomorrow. * Nothing by mouth after midnight. Continue telemetry? Yes
--- NOTE | 2016-07-07 15:43 | NUR ---
wound care: requested by nursing to eval pt for skin alterations present on admission - hx obtained from pt - pt stated he had wounds for multiple months while at [facility] - c/o slight discomfort - + palpable dp pulses - right heel noted wtih a 5.5 x 5 cm dti dark purple hue presents as blood blistered intact skin - left lateral heel 3x1 cm unstagable area presents as flush murky blister flush with skin surface - recommendation: 100% offloading to hailey heels at all times - apply vitamin a+d ointment to hailey heels daily (do not rub or massage areas) - f/u with podiatry after dc for fitting of offloading shoe
[2016-07-07 15:48] VITALS: BP 126/60
[2016-07-07 22:38] VITALS: BP 100/60
--- NOTE | 2016-07-08 05:06 | NUR ---
PT HAD A 6 BEAT FOLLOWED BY A 7 BEAT RUN OF [facility]. JENARO QIU MD AWARE. PT SLEEPING AT THIS TIME. WILL CONTINUE TO MONITOR.
--- NOTE | 2016-07-08 06:44 | PN- Housestaff ---
ZOLTAN CARRERA,[facility] 07/08/16 0643: Subjective Follow-up For: chf tia Tele-Events Since Last Visit: single pacing 60-100 6 beat 7 beat Subjective: Overnight, he was complaining of severe pain on his feet, and was given 1Xtoradol. His cr bumped up to 2.3 from 2.1 today. Will get post void residual. Added NSAIDs to his allergy list. ABG shows metabolic alkalosis, as he needs to be diuresed, we nurys give 1X acetazolamide, and will give it if bicarb > 35 on daily BEP. K improved to 4.2 from 3.8. Mag still low at 1.8, will give another 1Xmag ox. Spoke to Dr. Bourne, and he recommended checking SPEP, kappa, lambda. Also, he brought up a great point that sending him to cath with contrast load might worsen his kidney function. He has no objection to increasing eliquis to 5 bid, and to consider other anticoagulants. Warfarin should also be considered. when i saw the pt today, he was on 3L o2 nc, although no shortness of breath and saturating well. his pitting edema worse compared to yesteday, now about 2+. He has 4.5/10 pain which is tolerable for him. he was sitting comfortably on the recliner. will order melatonin to help him with sleep as he has been waking up at 2 am the previous 2 nights. Review of Systems Constitutional: Reports: see HPI. Denies: chills, fever. Objective Last 24 Hrs of Vital Signs/I&O Vital Signs Date Time Temp Pulse Resp B/P Pulse O2 O2 Flow FiO2 Ox Delivery Rate 07/09 807 98.1 68 20 126/52 99 Nasal 2.0L Cannula 07/078 97.9 74 20 100/60 96 Room Air 07/07 2056 86 120/60 07/07 1915 92 Room Air 07/07 1600 94 Room Air 07/07 1548 97.6 51 20 126/60 94 Intake & Output 07/08 1600 07/08 0800 07/08 0000 Intake Total 240 Output Total 800 Balance -560 Intake, Oral 240 Output, Urine 800 Patient 82.554 kg Weight Physical Exam General Appearance: Alert, Oriented X3, Cooperative, No Acute Distress Skin: heel lesions present on admission HEENT: Atraumatic Cardiovascular: irregular rate Lungs: Clear to Auscultation, Normal Air Movement Abdomen: Normal Bowel Sounds, Soft, No Tenderness Extremities: 2+ pitting edema up to mid calf Current Medications: Current Medications Sig/Jaswinder Start time Last Medication Dose Route Stop Time Status Admin Acetaminophen 650 MG Q6P PRN / 1245 AC 07/05 PO 2107 Acetazolamide 250 MG ONCE ONE 07/08 1145 UNVr PO 07/08 1146 Albuterol Sulfate 3 ML BID 07/04 2200 AC 07/07 INH 1915 Allopurinol 100 MG DAILY 07/04 1234 AC 07/07 PO 1027 Apixaban 2.5 MG BID 07/04 1235 AC 07/07 PO 2056 Aspirin Buffered 81 MG DAILY 07/04 1351 AC 07/07 PO 1026 Atorvastatin Calcium 80 MG 1700 07/05 1700 AC 07/07 PO 1610 Budesonide/ 2 PUF BID 07/04 1235 AC 07/07 Formoterol Fumarate INH 2055 Carvedilol 18.75 MG BID 07/06 2200 AC 07/07 PO 2056 Digoxin 0.125 MG TUES THURS SAT 07/07 1000 AC 07/07 PO 1026 Furosemide 40 MG 7:30 AM, & 4:30 PM 07/04 1630 AC 07/07 IV 1610 Ketorolac 30 MG ONCE ONE 07/08 0300 DC 07/08 Tromethamine IV 07/08 0301 0338 Levothyroxine Sodium 0.025 MG DAILY AC 07/05 0700 AC 07/08 PO 0629 Magnesium Oxide 400 MG ONE ONE 07/08 1145 UNVr PO 07/08 1146 Melatonin 5 MG AT BEDTIME 07/08 2200 UNVr PO Omeprazole 40 MG BID 07/04 2200 AC 07/07 PO 2056 Oxycodone/ 1 TAB Q6P PRN 07/04 1245 AC Acetaminophen PO Patient Medication 1 ED .STK-MED ONE 07/07 1403 DC Teaching ED 07/07 1404 Polyethylene Glycol 17 GM DAILY 07/05 1000 AC 07/06 PO 1012 Potassium Chloride 40 MEQ ONCE ONE 07/07 1200 DC 03 PO 07/07 1201 1323 Prednisone 5 MG DAILY 07/04 1236 AC 07/07 PO 1027 Senna/Docusate Sodium 2 TAB QPM 07/04 2200 AC PO Last 24 Hrs of Lab/Pro Results Last 24 Hrs of Labs/Mics: Laboratory Tests 07/08/16 0645: Anion Gap 8, Estimated GFR 27 L, BUN/Creatinine Ratio 16.1, Magnesium 1.8 07/07/16 2110: pH 7.51 H, pCO2 41, pO2 64 L, HCO3 33 H, ABG O2 Sat (Measured) 92.0 L, Carboxyhemoglobin 0.3 L, O2 Concentration % R/A, Phlebotomy Draw Site RIGHT BRACHIAL Assessment/Plan Assessment: Mr. Ye is a pleasant 85-year-old male with known history of CAD status post 7 stent placement, A. fib status post pacemaker and defibrillator placement a year ago, systolic heart failure (HFrEF) with EF of 40%, COPD, hypertension who was recently discharged from [facility] after treatment of community- acquired pneumonia and congestive heart failure was sent from [facility] after he developed acute onset left-sided chest pain squeezing in nature associated with dizziness and shortness of breath. He is currently admitted to the telemetry floor and the following is the management: # Chest pain (resolved) likely demand ischemia - Minimally elevated troponin (max 0.12) with no significant ST/T wave changes - Echo: The left ventricular chamber size is normal with global hypokinesia and an ejection fraction of approximately 45%. A followup examination is suggested when the patient's heart rate is better controlled to reassess LV function. Mild tricuspid insufficiency is present with mild pulmonary hypertension * Cardio consult appreciated * Nuclear stress test ? Cath? contrast load might worsen kidney function * F/U SPEP, kappa, lambda # TIA - transient left sided weakness (resolved): Sxs resolved/no current neuro deficits - Carotid doplper: The right internal carotid artery shows no hemodynamically significant stenosis. The left internal carotid artery shows no hemodynamically significant stenosis. Internal carotid artery stenoses fall in the 0-49% category by duplex Doppler velocity spectral waveform analysis. - Head CT negative - Renal has no objection to increasing eliquis to 5 bid, and to consider other anticoagulants. Warfarin should also be considered. * Continue ASA, increase lipitor to 80 mg PO daily * DIVINA 07/07 # Atrial fibrillation s/p PPM placement, up to 24 beat run (asymptomatic) * Cardio consult appreciated * Continue eliquis 2.5 mg PO BID (dose adjusted due to age and cre), consider inc to 5 bid or change to another anticoagulant * Increased coreg to 18.75 bid * Started digoxin 0.125, 3X/week * Pacemaker interrogated 07/06, settings adjusted * Appreciate Dr. Richey's recc * 07/06: K 3.8, given 1 X kdur. 07/08: K improved to 4.2 * 07/06: mag 1.7, given 1X mag ox. 07/08: Mag still low at 1.8, will give another 1Xmag ox. # Elevated CRP and ESR, ? vasculitis affecting renal function - CRP 8.2 in Apr 2016, >15 in May 2016 - ESR 110 in May 2016 * Appreciate renal consult * Consider rheum consult # Left arm swelling most likely due to IV infiltration that is nontender # Right heel wound that is slightly tender, and left feel skin changes that is nontender - Wound care consulted, most likely due to chronic pressure injury * Recc continuous offloading and avoid trauma. Can be dressed for protection but no wound care dressing required. * If this fails to resolve lower extremity arterial ultrasound would be appropriate to exclude complicating getting peripheral vascular disease * PT evaluation # Systolic CHF * Bilateral lower extremity edema without any overt signs of pulmonary edema on clinical exam * Elevate legs * Lasic 40 mg IV BID * Strict Is/Os, daily weights * Consider entresto. Renal ok with entresto, but wait until renal function stabilize * 07/08: ABG shows metabolic alkalosis, as he needs to be diuresed, we nurys give 1X acetazolamide, and will give it if bicarb > 35 on daily BEP. # Worsening kidney function * Avoid NSAIDs * Added NSAIDs to allergy list * Check PVR # Leukocytosis (resolved) - Mild leukocytosis of 11,100 on admission without evidence of focal infection ( denies any productive cough, fever, chills, urinary burning or pain) - CXR revealed new patchy reticular nodular airspace opacity questionable for pneumonia versus atelectasis * Hold off Abx for now # COPD * Continue home inhalers * Home prednisone daily # HLD * Change simvastatin to a more potent statin Diet: CHF diet DVTP: Eliquis, alps Mild pain pathway FULL CODE Problem List: 1. CHF (congestive heart failure) 2. TIA (transient ischemic attack) Pain Ratin Pain Location: feet Pain Goal: Pain 7 or less Pain Plan: mod pp Tomorrow's Labs & Rationales: bep and mag for hypomag, worsening kidney functions DVT/Prophylaxis: mechanical, pharmacological Consulting Request: Consulting Specialty: Cardiology Consulting Physician: Obey Vidales MD Reason for Consult: chest pain FLAKO CARRERA,MAURICIO 07/08/16 1007: Attending MD Review Statement Attending Statement Attending MD Statement: examined this patient, discuss w/resident/PA/ROBOTYPE OPERATOR, agreed w/resident/PA/ROBOTYPE OPERATOR, reviewed EMR data (avail) Attending Assessment/Plan: 85M PMH CAD s/p multiple stents, chronic atrial fibrillation s/p AICD/PPM, systolic heart failure (HFrEF) with EF of 40%, COPD, HTN admitted with chest pain and shortness of breath in the setting of rapid atrial fibrillation and NSTEMI. On 07/05 patient had TIA symptoms with left sided weakness that resolved after a few minutes and has not yet recurred. No complaints today. Vitals stable. Creatinine slightly increased to 2.3. ABG shows metabolic alkalosis. Plan - Continue on telemetry - Device interrogation complete - DIVINA today - Resume diet afterward - Follow cardiology recommendations - Continue ASA and high dose statin - Follow neurology recommendations - Continue Eliquis - Follow nephrology recommendations. If bicarb increases will consider starting Diamox for diuresis.
--- NOTE | 2016-07-08 08:01 | PN- Wound Care ---
Subjective Subjective: Patient feels he has increased edema. Right heel blister remains intact Objective Vital Signs and I&Os Vital Signs Result Date Time Pulse Ox 96 07/07 2237 B/P 100/60 07/07 2237 O2 Delivery Room Air 07/07 2237 Temp 97.9 07/07 2237 Pulse 74 07/07 2237 Resp 20 07/07 2237 O2 Flow Rate Room Air 07/07 0809 Intake & Output 07/08 0000 07/07 1600 07/07 0800 Intake Total 240 480 Output Total 800 800 125 Balance -560 -320 -125 Intake, Oral 240 480 Output, Urine 800 800 125 Right heel pressure injury blister remains intact there is no evidence of soft tissue skin infection Impression/Plan Impression/Plan Impression/Plan: 85-year-old gentleman with multiple medical problems is had a 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 Recommend continuous offloading and avoidance of trauma. The area can be dressed for protection but no specific wound care dressing is required. If this fails to resolve lower extremity arterial ultrasound would be appropriate to exclude complicating getting peripheral vascular disease. Patient would benefit from Multi-Podus boot
[2016-07-08 08:08] VITALS: BP 126/52
--- NOTE | 2016-07-08 10:14 | NUR ---
Physical Therapy - PT intervention deferred this morning, pt awaiting DIVINA to r/o clot. Will f/u as appropriate.
--- NOTE | 2016-07-08 12:10 | PN- Nephrology ---
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 Given bland urine sediment, unlikely to be glomerulonephritis/vasculitis. Can rule out monoclonal protein which does not necessarily lead to significant proteinuria. MADONNA - Baseline renal function has been very fluctuant in past, likely reflective of volume status. This may also be in part a result of his rhythm issues which are being titrated. He has a significant amount of peripheral edema. Eventhough his creatinine is slightly up, I would not stop diuresis. Given that he got a high dose of ketorolac overnight, I would anticipate that it might go up more. Anemia - Hg at goal Metabolic alkalosis - Given volume overload, would dose 250mg acetazolamide. A fib - On AC with eliquis - efficacy (risks vs benefits) in CKD not known as those patient were excluded from trial. Suggestion: -Would cont 40mg IV lasix BID as you are -acetazolamide 250mg today - would cont so long as remains volume overloaded getting IV lasix and bicarb is 35 or above -Agree with listing NSAID as allergy -OK to use entresto, but may want to wait until renal function stabilizes given the ARB component -Daily weights -If SCr significantly increases, would document PVR -Would check SPEP and KLFLC -Cautious use of eliquis given CKD Please call [phone] with ?'s Subjective Subjective: SCr up to 2.3 Got 30mg of ketorolac last night (ankle pain which he attributes to the edema) Blood gas 7.51/41/64 NSAID added as allergy this AM Went for DIVINA this AM Objective Vital Signs and I&Os Vital Signs Date Time Temp Pulse Resp B/P Pulse O2 O2 Flow FiO2 Ox Delivery Rate 07/09 807 98.1 68 20 126/52 99 Nasal 2.0L Cannula 07/078 97.9 74 20 100/60 96 Room Air 07/07 2056 86 120/60 07/07 1915 92 Room Air 07/07 1600 94 Room Air 07/07 1548 97.6 51 20 126/60 94 Intake & Output 07/08 1600 07/08 0400 07/07 1600 07/07 0400 07/06 1600 07/06 0400 Intake Total 240 480 610 780 600 Output Total 800 493 580 0485 750 Balance -560 -445 10 -245 -150 Intake, IV 10 Intake, Oral 240 480 600 780 600 Output, Urine 800 349 146 8374 750 Patient 182 lb 183 lb Weight Physical Exam: Gen - NAD HEENT - JVP equivocal CV - RRR Chest - decreased breath sounds L base Abd - soft, nontender Ext - 1-2+ edema to thighs Neuro - AOX3 Current Medications: Current Medications Sig/Jaswinder Start time Last Medication Dose Route Stop Time Status Admin Acetaminophen 650 MG Q6P PRN 07/04 1245 AC 07/05 PO 2107 Acetazolamide 250 MG ONCE ONE 07/08 1145 DC PO 07/08 1146 Albuterol Sulfate 3 ML BID 07/04 2200 AC 07/07 INH 1915 Allopurinol 100 MG DAILY 07/04 1234 AC 07/07 PO 1027 Apixaban 2.5 MG BID 07/04 1235 AC 07/07 PO 2056 Aspirin Buffered 81 MG DAILY / 1351 AC 07/07 PO 1026 Atorvastatin Calcium 80 MG 1700 07/05 1700 AC 07/07 PO 1610 Budesonide/ 2 PUF BID 07/04 1235 AC 07/07 Formoterol Fumarate INH 2055 Carvedilol 18.75 MG BID 07/06 2200 AC 07/07 PO 2056 Digoxin 0.125 MG TUES THURS SAT 07/07 1000 AC 07/07 PO 1026 Furosemide 40 MG 7:30 AM, & 4:30 PM 07/04 1630 AC 07/07 IV 1610 Ketorolac 30 MG ONCE ONE 07/08 0300 DC 07/08 Tromethamine IV 07/08 0301 0338 Levothyroxine Sodium 0.025 MG DAILY AC 07/05 0700 AC 07/08 PO 0629 Magnesium Oxide 400 MG ONE ONE 07/08 1145 DC PO 07/08 1146 Melatonin 5 MG AT BEDTIME 07/08 2200 AC PO Omeprazole 40 MG BID 07/04 2200 AC 07/07 PO 2056 Oxycodone/ 1 TAB Q6P PRN 07/04 1245 AC Acetaminophen PO Patient Medication 1 ED .STK-MED ONE 07/07 1403 DC Teaching ED 07/07 1404 Polyethylene Glycol 17 GM DAILY 07/05 1000 AC 07/06 PO 1012 Potassium Chloride 40 MEQ ONCE ONE 07/07 1200 DC 03 PO 07/07 1201 1323 Prednisone 5 MG DAILY 07/04 1236 AC 07/07 PO 1027 Senna/Docusate Sodium 2 TAB QPM 07/04 2200 AC PO Results Pertinent Lab Results: Laboratory Tests 07/08 07/07 07/07 0645 2110 0938 Blood Gas pH (7.35 - 7.45 PH) 7.51 H pCO2 (35 - 45 TORR) 41 pO2 (80 - 100 TORR) 64 L HCO3 (21 - 28 MEQ/L) 33 H ABG O2 Sat (Measured) (>96.0 %) 92.0 L Carboxyhemoglobin (1.5 - 5.0 %) 0.3 L O2 Concentration % R/A Chemistry Sodium (137 - 145 mmol/L) 140 139 Potassium (3.5 - 5.1 mmol/L) 4.2 3.8 Chloride (98 - 107 mmol/L) 96 L 94 L Carbon Dioxide (22 - 30 mmol/L) 36 H 37 H Anion Gap (5 - 16) 8 8 BUN (9 - 20 mg/dL) 37 H 32 H Creatinine (0.7 - 1.2 mg/dL) 2.3 H 2.1 H Estimated GFR (>60 ml/min) 27 L 30 L BUN/Creatinine Ratio (7 - 25 %) 16.1 15.2 Magnesium (1.6 - 2.3 mg/dL) 1.8 1.9 Miscellaneous Phlebotomy Draw Site RIGHT BRACHIAL 07/06 07/05 0730 1220 Chemistry Sodium (137 - 145 mmol/L) 139 Potassium (3.5 - 5.1 mmol/L) 3.8 Chloride (98 - 107 mmol/L) 96 L Carbon Dioxide (22 - 30 mmol/L) 35 H Anion Gap (5 - 16) 8 BUN (9 - 20 mg/dL) 34 H Creatinine (0.7 - 1.2 mg/dL) 2.0 H Estimated GFR (>60 ml/min) 32 L BUN/Creatinine Ratio (7 - 25 %) 17.0 Magnesium (1.6 - 2.3 mg/dL) 1.7 Troponin I (<0.11 ng/ml) 0.10 Hematology CBC w Diff NO MAN DIFF REQ WBC (4.8 - 10.8 /CUMM) 9.8 RBC (4.70 - 6.10 /CUMM) 3.25 L Hgb (14.0 - 18.0 G/DL) 10.1 L Hct (42 - 52 %) 30.6 L MCV (80.0 - 94.0 FL) 94.0 MCH (27.0 - 31.0 PG) 30.9 RDW (11.5 - 14.5 %) 16.3 H Plt Count (130 - 400 /CUMM) 324 MPV (7.4 - 10.4 FL) 8.6 Gran % (42.2 - 75.2 %) 76.8 H Lymphocytes % (20.5 - 51.1 %) 15.2 L Monocytes % (1.7 - 9.3 %) 6.9 Eosinophils % (0 - 5 %) 0.4 Basophils % (0.0 - 2.0 %) 0.7 Absolute Granulocytes (1.4 - 6.5 /CUMM) 7.5 H Absolute Lymphocytes (1.2 - 3.4 /CUMM) 1.5 Absolute Monocytes (0.10 - 0.60 /CUMM) 0.7 H Absolute Eosinophils (0.0 - 0.7 /CUMM) 0 Absolute Basophils (0.0 - 0.2 /CUMM) 0.1 PUBS MCHC (33.0 - 37.0 G/DL) 32.9 L Imaging/Other Studies: TTE CONCLUSIONS 1. THis was a technically difficult examinaton due to the patient's elevated heart rate. 2. Mild to moderate aortic sclerosis is present with mild to moderate aortic insufficiency. 3. Mitral leaflet thickening is present with mild mitral insufficiency and moderate to severe left atrial enlargement. 4. There is no pericardial fluis detected. 5. The left ventricular chamber size is normal with global hypokinesia and an ejection fraction of approximately 45%. A followup examination is suggested when the patient's heart rate is better controlled to reassess LV function 6. Mild tricuspid insufficiency is present with mild pulmonary hypertension 7. Pacemaker wires are present in the right heart chambers. EXAM TYPE: RAD - XRY-PORTABLE CHEST XRAY EXAMINATION: XR PORTABLE CHEST CLINICAL INFORMATION: 85-year-old man with chest pain and shortness of breath. COMPARISON: 06/29/2016 chest radiograph TECHNIQUE: Portable AP view of the chest was obtained. FINDINGS: Lung volumes are quite low. There is patchy new reticulonodular airspace opacity at both lung bases that could reflect early pulmonary edema versus atelectasis/pneumonia. Moderate cardiomegaly post left sided 3-lead pacemaker placement is unchanged. There may be small bilateral effusions. IMPRESSION: Limited due to low lung volumes. New bibasilar opacities could reflect pulmonary edema with small effusions versus early consolidation/atelectasis.
[2016-07-08 15:39] VITALS: BP 106/42
--- NOTE | 2016-07-08 19:24 | PN- Cardiology ---
Subjective Subjective: Clinically about the same. Stable with no recurrence of any cardiac or neurologic symptoms Objective Vital Signs and I&Os Vital Signs Date Time Temp Pulse Resp B/P Pulse O2 O2 Flow FiO2 Ox Delivery Rate 07/08 1539 97.5 82 20 106/42 98 Nasal 2.0L Cannula 07/08 1412 95 Room Air 07/08 1240 134/70 07/08 0808 98.1 68 20 126/52 99 Nasal 2.0L Cannula 07/07 2238 97.9 74 20 100/60 96 Room Air 07/07 2056 86 120/60 Intake & Output 07/08 1600 07/08 0800 07/08 0000 07/07 1600 07/07 0807/07 0000 Intake Total 240 480 610 Output Total 800 800 125 600 Balance -560 -320 -125 10 Intake, IV 10 Intake, Oral 240 480 600 Output, Urine 800 800 125 600 Patient 182 lb Weight Current Medications: Current Medications Sig/Jaswinder Start time Last Medication Dose Route Stop Time Status Admin Acetaminophen 650 MG Q6P PRN 07/04 1245 AC 07/05 PO 2107 Acetazolamide 250 MG ONCE ONE 07/08 1145 DC 07/08 PO 07/08 1146 1240 Albuterol Sulfate 3 ML BID 07/04 2200 AC 07/08 INH 1411 Allopurinol 100 MG DAILY / 1234 AC 07/08 PO 1239 Apixaban 2.5 MG BID / 1235 AC 07/08 PO 1240 Aspirin Buffered 81 MG DAILY / 1351 AC 07/08 PO 1240 Atorvastatin Calcium 80 MG 1700 / 1700 AC 07/08 PO 1801 Budesonide/ 2 PUF BID /04 1235 AC 07/08 Formoterol Fumarate INH 1239 Carvedilol 18.75 MG BID 07/06 2200 AC 07/08 PO 1240 Digoxin 0.125 MG TUES THURS SAT 07/07 1000 AC 03 PO 1026 Furosemide 40 MG 7:30 AM, & 4:30 PM / 1630 AC 07/08 IV 1801 Ketamine HCl 50 MG .STK-MED ONE 07/08 08 DC IM 07/08 0806 Ketorolac 30 MG ONCE ONE 07/08 0300 DC 07/08 Tromethamine IV 07/08 0301 0338 Levothyroxine Sodium 0.025 MG DAILY AC 07/05 0700 AC 07/08 PO 0629 Magnesium Oxide 400 MG ONE ONE 07/08 1145 DC 07/08 PO 07/08 1146 1241 Melatonin 5 MG AT BEDTIME 07/08 220 AC PO Midazolam HCl 2 MG .STK-MED ONE 07/08 0806 DC IM 07/08 0807 Omeprazole 40 MG BID 07/04 2200 AC 07/08 PO 1239 Oxycodone/ 1 TAB Q6P PRN 07/04 1245 AC Acetaminophen PO Polyethylene Glycol 17 GM DAILY 07/05 1000 AC 07/06 PO 1012 Prednisone 5 MG DAILY 07/04 1236 AC 07/08 PO 1240 Senna/Docusate Sodium 2 TAB QPM 07/04 2200 AC PO Results Last 48 Hrs of Labs/Mics: Laboratory Tests 07/08/16 0645: Anion Gap 8, Estimated GFR 27 L, BUN/Creatinine Ratio 16.1, Magnesium 1.8 07/08/16 0600: Prot Electrophoresis Pending, Total Protein (PEP) Pending, Albumin % (PEP) Pending, Dllxe-9-Pevbimsop Pending, Mcnrd-8-Hgytainel Pending, Tpxt-4-Ywtnazdg Pending, Nozk-5-Txbnduvt Pending, Gamma Globulins Pending, Abnorm Protein Band 1 Pending, Abnorm Protein Band 2 Pending, Abnorm Protein Band 3 Pending, Ref Lab Test Result Pending 07/07/160: pH 7.51 H, pCO2 41, pO2 64 L, HCO3 33 H, ABG O2 Sat (Measured) 92.0 L, Carboxyhemoglobin 0.3 L, O2 Concentration % R/A, Phlebotomy Draw Site RIGHT BRACHIAL 07/07/16 0938: Anion Gap 8, Estimated GFR 30 L, BUN/Creatinine Ratio 15.2, Magnesium 1.9 Assessment/Plan Assessment/Plan Assessment: 1. CHest pain; rule out ACS; minimallly elevated troponin 2. Probable TIA with left upper extremity weakness 3. Atrial fibrillation with episodes of elevated ventricular rate -the patient has known atrial fibrillation underlying his paced rhythm. Episodes of elevated rate have been noted. 4. History of CAD 5. Chronic renal insufficiency 6. Anemia 7. Elevated proBNP 8. Lorin cell tumor; s/p recent surgery. 9. LE edema / venous insufficiency. 10. PFO 11. Mobile aortic atheromatous plaque Recommendations: -DIVINA today showed no valvular lesions; a very small PFO and moderate atheromatous aortic plaque with areas of mobile debris in the distal arch and descending thoracic aorta. NO thrombi were detected. -Neurology input noted -Keep the patient on telemetry -EPS input noted -For now, I would suggest continuing Eliquis at present dose and continuing low dose ASA but will discuss further with Neurology. -Hold lasix for now in view of increasing creatinine Continue telemetry? Yes
--- NOTE | 2016-07-08 20:01 | ECHOCARDIOGRAM REPORT ---
HESHAM CARLOS Age: 85 : Gender: M Exam Date: 07/08/2016 09:19 Exam Location: [address] Ht (in): 66 Wt (lb): 182 BSA: 1.98 BP: 115 / 64 Ordering Physician: POPEYE ANDRADE, Referring Physician: POPEYE ANDRADE, Technologist: David Barriga RDCS Room Number: 189-2 Indications: Chest Pain Rhythm: Atrial fibrillation Technical Quality: Good Medications Lidocaine [place]. Propofol administered by Anesthesiology. Ease of Transducer Insertion No Difficulty Complications None. Technical Difficulty FINDINGS Left Ventricle Normal size left ventricle. Mildly abnormal left ventricular ejection fraction estimated at 45-50%. Right Ventricle Right ventricle not well visualized, grossly normal. Catheter/pacemaker wire in the right ventricular cavity. Right Atrium Normal right atrial size. Catheter/pacemaker wire in the right atrial cavity. Left Atrium Left atrial dilatation. Severe spontaneous echo contrast seen in the left atrium. Spontaneous echo contrast seen in the left atrial appendage. LA Appendage Normal left atrial appendage. Spontaneous echo contrast seen in the left atrial appendage. IA Septum Patent foramen ovale. Mitral Valve Mitral valve thickened. Mild mitral regurgitation. Aortic Valve Trileaflet aortic valve. Diffuse thickening (sclerosis) of the aortic valve cusps without reduced excursion. No aortic stenosis. Moderate aortic regurgitation. Tricuspid Valve Tricuspid valve not well visualized, grossly normal. Mild tricuspid regurgitation. Pulmonic Valve Pulmonic valve not well visualized. Pericardium No pericardial effusion. Great Vessels Normal size aortic root and proximal ascending aorta. Grade III plaque seen in the aortic arch. Grade III plaque seen in the descending aorta. Mobile plaque seen in the aorta. CONCLUSIONS 1. MIld to moderate aortic sclerosis is present with moderate aortic insufficiency. 2. Mitral leaflet thickening is present with mild mitral insufficiency and left atrial enlargement. 3. Moderate spontaneous contrast is present in the left atrium and appendage. 4. There is no thrombus detected in the atrial appendage. 5. There is no pericardial effusion present. 6. The pulmonary venous anatomy is normal with normal doppler profiles. 7. The left ventricular chamber size is normal wth mildly depressed LV systolic function. Accurate wall motion assessment was not possible. 7. The right heart structurees are grossly normal. The RV systolc pressure could not be assessed. 8. A PFO is present with a very tiny resting bidirectional shunt. 9. Pacemaker wires are present in the right heart chambers 10. Grade II to III atheromatous plaque is present in the thoracic aorta. Multiple areas of mobile debris are noted.. Obey Vidales M.D. (Electronically Signed) Final Date: 08 July 2016 20:00 MEASUREMENTS (Male / Female) Normal Values
--- NOTE | 2016-07-08 20:29 | NUR ---
PT WITH B/L IMPAIRED HEELS. LT HEEL BOGGY, RT HEEL WITH INTACT BLISTER. DR SHAH IN TO SEE PT AND REQUESTS ORDER FOR MULTI-PODIS BOOTS. ORDER PLACED AND HANGAR IN TO SEE PT TO FIT BOOTS. PT REFUSING TO ACCEPT BOOTS D/T WEARING THEM IN BED AND NEEDING TO GET UP TO THE BATHROOM. STATES HE WOULD FEEL DIZZY BENDING DOWN TO TAKE THEM ON AND OFF AND DOESN'T FEEL SAFE DOING SO. WISHES TO SPEAK WITH DR PRIOR TO WEARING THEM.
[2016-07-08 21:30] VITALS: BP 100/52
--- NOTE | 2016-07-09 06:45 | PN- Housestaff ---
ZOLTAN CARRERA,[facility] 07/09/16 0645: Subjective Follow-up For: chest pain tia Tele-Events Since Last Visit: single pacing 69-78 Subjective: Pt seen this morning, he again had a bad night. He woke up in the middle of the night feeling lightheaded, BP was around 100, with blood sugar 192. He tried to sleep on the recliner but was frustrated he still couldn't go back to sleep. After given percocet, he was finally able to sleep, although he denied pain. Will add rozerem for sleep. He reports feeling anxious about further workups. Plan to speak to Dr. Vidales regarding plan for cath vs stress test. Plan to speak to neuro regarding adding plavix given TIA in the settings of anticoagulation with eliquis and PFO, without atrial appendage thrombus. As his cr function was worse yesteday, lasix was discontinued although he received 2 doses yesterday. Will check kidney functions today. PT worked with him and [facility]. Review of Systems Constitutional: Denies: chills, fever. EENTM: Reports: see HPI. Denies: visual changes. Cardiovascular: Denies: chest pain. Respiratory: Denies: cough, short of breath. Gastrointestinal: Denies: abdominal pain. Objective Last 24 Hrs of Vital Signs/I&O Vital Signs Date Time Temp Pulse Resp B/P Pulse O2 O2 Flow FiO2 Ox Delivery Rate 07/09 0000 95 07/08 2207 97.7 70 18 100/52 07/08 2130 97.7 70 18 100/52 94 Room Air 07/08 2052 100 Nasal 2.0L Cannula 07/08 1539 97.5 82 20 106/42 98 Nasal 2.0L Cannula 07/08 1412 95 Room Air 07/08 1240 134/70 Intake & Output 07/09 1600 07/09 0800 07/09 0000 Intake Total 120 240 Output Total 300 150 Balance -180 90 Intake, Oral 120 240 Output, Urine 300 150 Patient 83.007 kg Weight Physical Exam General Appearance: Alert, Oriented X3, Cooperative, No Acute Distress Skin: heel lesions POA HEENT: Atraumatic Cardiovascular: No Murmurs, irregular rate Lungs: Clear to Auscultation, Normal Air Movement Abdomen: Normal Bowel Sounds, Soft, No Tenderness Neurological: Normal Speech Extremities: 2+ pitting edema up to mid calf Current Medications: Current Medications Sig/Jaswinder Start time Last Medication Dose Route Stop Time Status Admin Acetaminophen 650 MG Q6P PRN 07/04 1245 AC 07/05 PO 2107 Acetazolamide 250 MG ONCE ONE 07/08 1145 DC 07/08 PO 07/08 1146 1240 Albuterol Sulfate 3 ML BID 07/04 2200 AC 07/08 INH 2043 Allopurinol 100 MG DAILY 07/04 1234 AC 07/08 PO 1239 Apixaban 2.5 MG BID 07/04 1235 AC 07/08 PO 2117 Aspirin Buffered 81 MG DAILY 07/04 1351 AC 07/08 PO 1240 Atorvastatin Calcium 80 MG 1700 07/05 1700 AC 07/08 PO 1801 Budesonide/ 2 PUF BID 07/04 1235 AC 07/08 Formoterol Fumarate INH 2119 Carvedilol 18.75 MG BID 07/06 2200 AC 07/08 PO 1240 Digoxin 0.125 MG TUES THURS SAT 07/07 1000 AC 07/07 PO 1026 Furosemide 40 MG 7:30 AM, & 4:30 PM 07/04 1630 DC 07/08 IV 1801 Levothyroxine Sodium 0.025 MG DAILY AC 07/05 0700 AC 07/09 PO 0643 Magnesium Oxide 400 MG ONE ONE 07/08 1145 DC 07/08 PO 07/08 1146 1241 Melatonin 5 MG AT BEDTIME 07/08 2200 AC PO Omeprazole 40 MG BID 07/04 2200 AC 07/08 PO 2117 Oxycodone/ 1 TAB Q6P PRN 07/04 1245 AC 07/08 Acetaminophen PO 2350 Polyethylene Glycol 17 GM DAILY 07/05 1000 AC 07/06 PO 1012 Prednisone 5 MG DAILY 07/04 1236 AC 07/08 PO 1240 Ramelteon 8 MG AT BEDTIME 07/09 2200 AC PO Senna/Docusate Sodium 2 TAB QPM 07/04 2200 AC PO Assessment/Plan Assessment: Mr. Ye is a pleasant 85-year-old male with known history of CAD status post 7 stent placement, A. fib status post pacemaker and defibrillator placement a year ago, systolic heart failure (HFrEF) with EF of 40%, COPD, hypertension who was recently discharged from [facility] after treatment of community- acquired pneumonia and congestive heart failure was sent from [facility] after he developed acute onset left-sided chest pain squeezing in nature associated with dizziness and shortness of breath. In summary, pt was admitted for chest pain with minimally elevated troponin of 0.12 in the settings of atrial fibrillation with RVR (up to 140s,despite having pacemaker) that trended down and chest pain has resolved. The chest pain with positive troponin is more consistent of demand ischemia in the settings of rapid ventricular rate. He then developed TIA (left arm weakness) 1 day after admission, that has resolved, but was concerning because he is already anticoagulated with eliquis 2.5 bid (renally and age adjusted) and aspirin. Statin changed from simvastatin to atorvastatin 80mg. Pacemaker interrogated, and setting changed as per Dr. Richey's recc. Carvedilol increased to 18.75 bid, digoxin added 0.125 mg 3X/week, rate has been better controlled since (around 60s to 80s). DIVINA showed small PFO, but unlikely to be the source of his TIA, no surgical intervention at this time. TIA most likely precipated by either atrial fibrillation or mobile debris in distal arch and descending aorta (found on DIVINA) . Due to his kidney functions, Dr. Vidales does not want to increase eliquis dose. Given his heart history, aspirin is a better choice than plavix. We are not comfortable sending him out on aspirin, plavix, and eliquis. Kidney functions also worsened, possibly due to IV lasix bid given inpatient and toradol that was given one time. NSAIDs added to his allergy list. IV lasix then put on hold, PO lasix can be resumed at home. # Worsening kidney function * Avoid NSAIDs * Added NSAIDs to allergy list * Check PVR # Sleep * Melatonin at bedtime * Rozerem at bedtime * Consider meds for anxiety # Chest pain (resolved) likely demand ischemia - Minimally elevated troponin (max 0.12) with no significant ST/T wave changes - Echo: The left ventricular chamber size is normal with global hypokinesia and an ejection fraction of approximately 45%. A followup examination is suggested when the patient's heart rate is better controlled to reassess LV function. Mild tricuspid insufficiency is present with mild pulmonary hypertension * Cardio consult appreciated * Nuclear stress test can be done as outpatient * No plan for Cath contrast load might worsen kidney function * F/U SPEP, kappa, lambda # TIA - transient left sided weakness (resolved): Sxs resolved/no current neuro deficits - Carotid doplper: The right internal carotid artery shows no hemodynamically significant stenosis. The left internal carotid artery shows no hemodynamically significant stenosis. Internal carotid artery stenoses fall in the 0-49% category by duplex Doppler velocity spectral waveform analysis. - Head CT negative - Renal has no objection to increasing eliquis to 5 bid, and to consider other anticoagulants. Warfarin should also be considered. * Continue ASA, increase lipitor to 80 mg PO daily * DIVINA 07/07 * plavix? Dr Vidales will be ok continuing him on eliquis and aspirin, or changing aspirin to plavix, but not both. # Atrial fibrillation s/p PPM placement, up to 24 beat run (asymptomatic) * Cardio consult appreciated * Continue eliquis 2.5 mg PO BID (dose adjusted due to age and cre), consider inc to 5 bid or change to another anticoagulant * Increased coreg to 18.75 bid * Started digoxin 0.125, 3X/week * Pacemaker interrogated 07/06, settings adjusted * Appreciate Dr. Richey's recc * 07/06: K 3.8, given 1 X kdur. 07/08: K improved to 4.2 * 07/06: mag 1.7, given 1X mag ox. 07/08: Mag still low at 1.8, will give another 1Xmag ox. # Elevated CRP and ESR, ? vasculitis affecting renal function - CRP 8.2 in Apr 2016, >15 in May 2016 - ESR 110 in May 2016 * Appreciate renal consult * Consider rheum consult # Left arm swelling most likely due to IV infiltration that is nontender # Right heel wound that is slightly tender, and left feel skin changes that is nontender - Wound care consulted, most likely due to chronic pressure injury * Recc continuous offloading and avoid trauma. Can be dressed for protection but no wound care dressing required. * Boot for right leg * If this fails to resolve lower extremity arterial ultrasound would be appropriate to exclude complicating getting peripheral vascular disease * PT evaluation # Systolic CHF * Bilateral lower extremity edema without any overt signs of pulmonary edema on clinical exam * Elevate legs * Lasix 40 mg IV BID ON HOLD on 07/09 due to worsening kidney functions * Strict Is/Os, daily weights * Consider entresto. Renal ok with entresto, but wait until renal function stabilize * 07/08: ABG shows metabolic alkalosis, as he needs to be diuresed, we nurys give 1X acetazolamide, and will give it if bicarb > 35 on daily BEP. # Leukocytosis (resolved) - Mild leukocytosis of 11,100 on admission without evidence of focal infection ( denies any productive cough, fever, chills, urinary burning or pain) - CXR revealed new patchy reticular nodular airspace opacity questionable for pneumonia versus atelectasis * Hold off Abx for now # COPD * Continue home inhalers * Home prednisone daily # HLD * Change simvastatin to a more potent statin Diet: CHF diet DVTP: [place] Mild pain pathway FULL CODE Labs: bep and mag for hypokalemia and hypomag Problem List: 1. TIA (transient ischemic attack) Pain Ratin Pain Location: feet Pain Goal: Pain 4 or less Pain Plan: mild pp Tomorrow's Labs & Rationales: bep and mag for hypokalemia and hypomag DVT/Prophylaxis: mechanical, pharmacological Consulting Request: Consulting Specialty: Cardiology Consulting Physician: Obey Vidales MD Reason for Consult: chest pain FLAKO CARRERA,[facility] 07/09/16 1312: Attending MD Review Statement Attending Statement Attending MD Statement: examined this patient, discuss w/resident/PA/LUBE ATTENDANT, agreed w/resident/PA/LUBE ATTENDANT, reviewed EMR data (avail) Attending Assessment/Plan: 85M PMH CAD s/p multiple stents, chronic atrial fibrillation s/p AICD/PPM, systolic heart failure (HFrEF) with EF of 40%, COPD, HTN admitted with chest pain and shortness of breath in the setting of rapid atrial fibrillation and NSTEMI. On 07/05 patient had TIA symptoms with left sided weakness that resolved after a few minutes and has not yet recurred. No complaints today. Vitals stable. Creatinine slightly increased to 2.7. ABG shows metabolic alkalosis. Plan - Continue on telemetry - Device interrogation complete - DIVINA completed, no intervention at this time - Follow cardiology recommendations - Continue ASA and high dose statin - Follow neurology recommendations - Continue Eliquis - Follow nephrology recommendations. If bicarb increases will consider starting Diamox for diuresis. - Will hold Lasix today due to increased creatinine. Recheck BEP tomorrow, if improved, likely discharge home with outpatient follow up - Anticipated discharge order, please send CMR to pharmacy
--- NOTE | 2016-07-09 08:25 | PN- Wound Care ---
Subjective Subjective: Patient feels well without complaints related to his right foot ulcer Objective Vital Signs and I&Os Vital Signs Result Date Time Pulse Ox 95 07/09 0000 B/P 100/52 07/08 2206 Temp 97.7 07/08 2206 Pulse 70 07/08 2206 Resp 18 07/08 2206 O2 Delivery Room Air 07/08 2129 O2 Flow Rate 2.0L 07/09 2051 Intake & Output 07/09 0000 07/08 1600 07/08 0800 Intake Total 240 480 Output Total 150 750 Balance 90 -270 Intake, Oral 240 480 Output, Urine 150 750 Patient 182 lb Weight Right foot pressure injury blister is decompressing and less tense as fluid is likely being reabsorbed overlying skin remains intact. I I suspect in time he will epithelialize. 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 Recommend continuous offloading and avoidance of trauma. The area can be dressed for protection but no specific wound care dressing is required. If this fails to resolve lower extremity arterial ultrasound would be appropriate to exclude complicating getting peripheral vascular disease. Patient would benefit from Multi-Podus boot
[2016-07-09 08:42] VITALS: BP 110/52
[2016-07-09] MEDS ORDERED: COREG6.25 M1 PO (09:31)
[2016-07-09] MEDS ORDERED: LIPITOR80 M1 PO (09:33)
--- NOTE | 2016-07-09 09:41 | Patient Discharge Instructions ---
Discharge Instructions General Discharge Information You were seen/treated for: - Demand ischemia - TIA - Worsening kidney functions - Hypokalemia - Hypomagnesiumia - Heel wounds Special Instructions: - Please follow up with PCP within 1 week. - Follow up with Dr. Vidales and Dr. Richey - Follow up with Dr. Dowd in 1 week for labwork, kidney functions, and potassium level Diet Continue normal diet: Yes Recommended Diet: CHF diet Activity Full Activity/No Limits: Yes Acute Coronary Syndrome Inclusion Criteria At DC or during hospital stay patient has or had the following: ACS DIAGNOSIS No Discharge Core Measures Meds if any: Prescribed or Continued at Discharge Meds if any: NOT Prescribed or Continued at Discharge Congestive Heart Failure Inclusion Criteria At DC or during hospital stay patient has or had the following: CHF DIAGNOSIS No Discharge Core Measures Meds if any: Prescribed or Continued at Discharge Meds if any: NOT Prescribed or Continued at Discharge Cerebrovascular accident Inclusion Criteria At DC or during hospital stay patient has or had the following: CVA/TIA Diagnosis No Discharge Core Measures Meds if any: Prescribed or Continued at Discharge Meds if any: NOT Prescribed or Continued at Discharge Venous thromboembolism Inclusion Criteria VTE Diagnosis No VTE Type NONE VTE Confirmed by (Test) NONE Discharge Core Measures - Per Current guidelines, there needs to be overlap - treatment for the first 5 days of Warfarin therapy. - If discharged on Warfarin prior to 5 days of - overlap therapy, the patient will need to be - assessed for post discharge needs including - *Post discharge parental anticoagulation - *Warfarin and/or parental anticoagulation education - *Follow up date to check INR post discharge At least 5 days overlap therapy as Inpatient No Meds if any: Prescribed or Continued at Discharge Note: Overlap Therapy is Warfarin and Anticoagulant Meds if any: NOT Prescribed or Continued at Discharge
--- NOTE | 2016-07-09 09:42 | Discharge Summary ---
Visit Information Visit Dates Admission Date: 07/04/16 Discharge Date: 07/10/16 Hospital Course Course Attending Physician: MAURICIO ARRIOLA MD Primary Care Physician: ERINN CARRERA,DOUGLAS Bustamante Consulting Request: Consulting Specialty: Cardiology Consulting Physician: Obey Narvaez MD Reason for Consult: chest pain Hospital Course: Mr. Ye is a pleasant 85-year-old male with known history of CAD status post 7 stent placement, A. fib status post pacemaker and defibrillator placement a year ago, systolic heart failure (HFrEF) with EF of 40%, COPD, hypertension who was recently discharged from [facility] after treatment of community- acquired pneumonia and congestive heart failure was sent from [facility] after he developed acute onset left-sided chest pain squeezing in nature associated with dizziness and shortness of breath. In summary, pt was admitted for chest pain with minimally elevated troponin of 0.12 in the settings of atrial fibrillation with RVR (up to 140s,despite having pacemaker) that trended down and resolution of chest pain. The chest pain with positive troponin is more consistent of demand ischemia in the settings of rapid ventricular rate. He then developed TIA (left arm weakness) 1 day after admission, that has resolved, but was concerning because he is already anticoagulated with eliquis 2.5 bid (renally and age adjusted) and aspirin. Statin changed from simvastatin 20mg to atorvastatin 80mg. Pacemaker interrogated, and setting changed as per Dr. Richey's recc. Carvedilol increased to 18.75 bid, digoxin added 0.125 mg 3X/week, rate has been better controlled since (around 60s to 80s). DIVINA showed small PFO, but unlikely to be the source of his TIA, no surgical intervention at this time. TIA most likely precipated by either atrial fibrillation or mobile debris in distal arch and descending aorta (also found on DIVINA). Due to his kidney functions, Dr. Narvaez does not want to increase eliquis dose. Given his cardiac history, aspirin is a better choice than plavix. We are not comfortable sending him out on aspirin, eliquis, AND plavix. Kidney functions also worsened (cr from 2.3 to 2.7), possibly due to IV lasix bid given inpatient and toradol that was given one time. NSAIDs added to his allergy list. His kidney functions improved (cr 2.7 to 2.2 at discharge) after holding IV lasix. PO lasix to be resumed at home. He continued to have bilateral pitting edema. After discussion with Dr. Narvaez and Dr. Bourne, we decided to proceed with 40 mg PO lasix daily instead of BID due to sensitivity of his kidney functions to lasix. He will follow up with Dr. Narvaez in a week. Instructed pt to follow up sooner if he is retaining too much fluid. Will need to follow up with Dr. Dowd for kidney functions, and f/u lab results (SPEP,kappa,lambda). Will follow up at CHF clinic. For more detailed hospital course, see below: # Worsening kidney function, most likely due to lasix and toradol use - up to 2.7 from 2.2, back to 2.2 at discharge * Added NSAIDs to allergy list * F/U BUN/Cr and K as OP # Sleep * Given Melatonin at bedtime * Given Rozerem at bedtime * Considered meds for anxiety # Chest pain (resolved) likely demand ischemia - Minimally elevated troponin (max 0.12) with no significant ST/T wave changes - Echo: The left ventricular chamber size is normal with global hypokinesia and an ejection fraction of approximately 45%. A followup examination is suggested when the patient's heart rate is better controlled to reassess LV function. Mild tricuspid insufficiency is present with mild pulmonary hypertension * Cardio consult appreciated (Dr. Narvaez and Dr. Richey) * Nuclear stress test can be done as outpatient * No plan for cath as contrast load might worsen kidney function # TIA - Transient left sided weakness (resolved): Sxs resolved/no current neuro deficits - Carotid doplper: The right internal carotid artery shows no hemodynamically significant stenosis. The left internal carotid artery shows no hemodynamically significant stenosis. Internal carotid artery stenoses fall in the 0-49% category by duplex Doppler velocity spectral waveform analysis. - Head CT negative - Renal has no objection to increasing eliquis to 5 bid, and to consider other anticoagulants. Warfarin should also be considered. * Continue ASA, increase atorvastatin to 80 mg PO daily * DIVINA 07/07 * Considered plavix. Dr Narvaez will be ok continuing him on eliquis and aspirin , or changing aspirin to plavix, but not both. # Atrial fibrillation s/p PPM placement, up to 24 beat run (asymptomatic) * Continue eliquis 2.5 mg PO BID (dose adjusted due to age and cre), considered increasing to 5 bid or change to another anticoagulant * Increased coreg to 18.75 bid * Started digoxin 0.125, 3X/week * Pacemaker interrogated 07/06, settings adjusted. Appreciate Dr. Richey's recc. * 07/10: K 3.7, given 1X kdur prior to discharge. F/U as OP * 07/06: mag 1.7, given 1X mag ox. 07/10: mag 2.0 # Elevated CRP and ESR, ? vasculitis affecting renal function - CRP 8.2 in Apr 2016, >15 in May 2016 - ESR 110 in May 2016 * Appreciate renal consult * F/U SPEP, kappa, lambda * Consider rheum consult # Left arm swelling most likely due to IV infiltration that is nontender # Right heel wound that is slightly tender, and left feel skin changes that is nontender - Wound care consulted, most likely due to chronic pressure injury * Recc continuous offloading and avoid trauma. Can be dressed for protection but no wound care dressing required * Boot for right leg * If this fails to resolve lower extremity arterial ultrasound would be appropriate to exclude complicating getting peripheral vascular disease * PT evaluated and recc home PT * Wound consult with Dr. Keys appreciated # Systolic CHF * Bilateral lower extremity edema without any overt signs of pulmonary edema on clinical exam * Elevate legs * Lasix 40 mg IV BID given since admission, then was held from 07/09 due to worsening kidney functions, kidney functions subsequently improved * 07/08: ABG shows metabolic alkalosis, as he needs to be diuresed, given 1X acetazolamide. * Strict Is/Os, daily weights * Consider entresto. Renal ok with entresto, but wait until renal function stabilize # Leukocytosis (resolved) - Mild leukocytosis of 11,100 on admission without evidence of focal infection ( denies any productive cough, fever, chills, urinary burning or pain) - CXR revealed new patchy reticular nodular airspace opacity questionable for pneumonia versus atelectasis * No abx given # COPD * Continued home inhalers and home prednisone daily # HLD * Changed simvastatin to atorvastatin 80mg daily Diet: CHF diet DVTP: Eliquis, alps Mild pain pathway FULL CODE Allergies: Coded Allergies: NSAIDS (Non-Steroidal Anti-Inflamma (Intermediate, POOR kidney functions, avoid NSAIDs! 07/08/16) Pertinent Lab Results: DIVINA: CONCLUSIONS 1. MIld to moderate aortic sclerosis is present with moderate aortic insufficiency. 2. Mitral leaflet thickening is present with mild mitral insufficiency and left atrial enlargement. 3. Moderate spontaneous contrast is present in the left atrium and appendage. 4. There is no thrombus detected in the atrial appendage. 5. There is no pericardial effusion present. 6. The pulmonary venous anatomy is normal with normal doppler profiles. 7. The left ventricular chamber size is normal wth mildly depressed LV systolic function. Accurate wall motion assessment was not possible. 7. The right heart structurees are grossly normal. The RV systolc pressure could not be assessed. 8. A PFO is present with a very tiny resting bidirectional shunt. 9. Pacemaker wires are present in the right heart chambers 10. Grade II to III atheromatous plaque is present in the thoracic aorta. Multiple areas of mobile debris are noted.. Obey Narvaez M.D. (Electronically Signed) Final Date: 08 July 2016 20:00 TTE CONCLUSIONS 1. THis was a technically difficult examinaton due to the patient's elevated heart rate. 2. Mild to moderate aortic sclerosis is present with mild to moderate aortic insufficiency. 3. Mitral leaflet thickening is present with mild mitral insufficiency and moderate to severe left atrial enlargement. 4. There is no pericardial fluis detected. 5. The left ventricular chamber size is normal with global hypokinesia and an ejection fraction of approximately 45%. A followup examination is suggested when the patient's heart rate is better controlled to reassess LV function 6. Mild tricuspid insufficiency is present with mild pulmonary hypertension 7. Pacemaker wires are present in the right heart chambers. Obey Narvaez M.D. (Electronically Signed) Final Date: 07 July 2016 07:[address] IMPRESSION: No acute intracranial pathology. Carotid doppler IMPRESSION: 1. The right internal carotid artery shows no hemodynamically significant stenosis. 2. The left internal carotid artery shows no hemodynamically significant stenosis. Internal carotid artery stenoses fall in the 0-49% category by duplex Doppler velocity spectral waveform analysis. . DICTATED BY: DOUGLAS CRUZ MD DATE/TIME DICTATED:07/05/161716 CXR IMPRESSION: Limited due to low lung volumes. New bibasilar opacities could reflect pulmonary edema with small effusions versus early consolidation/atelectasis. DICTATED BY: ARLENE KYLE MD DATE/TIME DICTATED:07/04/16 3 Disposition Summary Disposition Principal Diagnosis: Demand ischemia Additional Diagnosis: TIA CHF Discharge Disposition: home health services Discharge Instructions General Discharge Information Code Status: Full Code Patient's Diet: CHF diet Patient's Activity: As tolerated Follow-Up Instructions/Appts: You were seen/treated for: - Demand ischemia - TIA - Worsening kidney functions - Hypokalemia - Hypomagnesiumia - Heel wounds Special Instructions: - Please follow up with PCP within 1 week. - Restart lasix 1 day after discharge. - Follow up with Dr. Narvaez and Dr. Richey - Follow up with Dr. Dowd in 1 week for labwork, kidney functions, and potassium level Medications at Discharge Discharge Medications: Stop taking the following medications: Simvastatin (Zocor*) 20 MG TABLET ORAL Every night Carvedilol (Coreg) 12.5 MG TABLET ORAL TWICE DAILY Days = 30 Furosemide (Lasix) 40 MG TABLET ORAL TWICE DAILY Qty = 60 Continue taking these medications: Apixaban (Eliquis) 2.5 MG TABLET 1 Tablet ORAL TWICE DAILY Comments: Last Taken: 06/30/16 Time: 9AM Esomeprazole (Nexium) 40 MG CAPSULE. 1 Capsule ORAL TWICE DAILY Qty = 30 Comments: Last Taken: 06/30/16 Time: 7AM PRILOSEC GIVEN Cyanocobalamin/FA/Pyridoxine (Folbic Tablet) 1 EACH TABLET 1 Tablet ORAL DAILY Qty = 30 Comments: Last Taken: 06/30/16 Time: 9AM Budesonide/Formoterol Fumarate (Symbicort 160-4.5 Mcg Inhaler) 160 MCG-4.5 MCG/ ACTUATION HFA.AER.AD 2 Puff Inhale through mouth TWICE DAILY Comments: Last Taken: 06/30/16 Time: 9AM Polyethylene Glycol 3350 (Clearlax) 17 GRAM/DOSE POWDER 1 Capsule ORAL DAILY Comments: Last Taken: 06/26/16 Time: 10AM Levothyroxine Sodium (Levothyroxine Sodium) 25 MCG TABLET 1 Tablet ORAL DAILY BEFORE BREAKFAST Qty = 60 Comments: Last Taken: 06/30/16 Time: 7AM Allopurinol (Allopurinol) 100 MG TABLET 1 Tablet ORAL DAILY Qty = 60 Comments: Last Taken: 06/30/16 Time: 9:00 AM Oxycodone HCl/Acetaminophen (Percocet 5-325 MG Tablet) 5 MG-325 MG TABLET 1-2 Tablet ORAL EVERY 4-6 HOURS as needed for PAIN Qty = 36 Comments: Last Taken: 06/29/16 Time: 11PM Prednisone (Prednisone) 5 MG TABLET Tablet ORAL Every Morning Comments: Last Taken: 06/30/16 Time: 9AM Sennosides/Docusate Sodium (Senna S Tablet) 8.6 MG-50 MG TABLET 2 Tablet ORAL Every night Start taking the following new medications: Digoxin (Lanoxin) 125 MCG TABLET 0.125 Milligram ORAL WEDNESDAY, WEDNESDAY, WEDNESDAY Qty = 30 No Refills Aspirin (Ecotrin*) 81 MG TABLET.DR 81 Milligram ORAL DAILY Qty = 60 No Refills Carvedilol (Coreg) 6.25 MG TABLET 18.75 Milligram ORAL TWICE DAILY Qty = 180 No Refills Atorvastatin Calcium (Lipitor) 80 MG TABLET 1 Tablet ORAL DAILY Qty = 30 No Refills Furosemide (Lasix) 40 MG TABLET 1 Tablet ORAL DAILY Qty = 30 No Refills Copies To: FAUSTO CARRERA,SIMIN Dotson; ERINN CARRERA,DOUGLAS Bustamante; CIRILO CARRERA,PATRICIA Rollins; Herberth NARVAEZ MD
--- NOTE | 2016-07-09 11:20 | PN- Nephrology ---
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 Given bland urine sediment, unlikely to be glomerulonephritis/vasculitis. Can rule out monoclonal protein which does not necessarily lead to significant proteinuria. MADONNA - Baseline renal function has been very fluctuant in past, likely reflective of volume status. I don't think that his increase over the last couple of days is 2/2 overdiuresis, but rather the high dose ketorolac that he was given. That being said, it is reasonable to hold diuretics today and recheck his SCr tomorrow. I would be hesitant to hold diuretics for more than a day given his exam. Anemia - Hg at goal Metabolic alkalosis - Has been given acetazolamide with improvement in his bicarb. A fib - On AC with eliquis - efficacy (risks vs benefits) in CKD not known as those patient were excluded from trial. Suggestion: -OK to hold lasix today -Agree with listing NSAID as allergy -OK to use entresto, but may want to wait until renal function stabilizes given the ARB component -Daily weights -Would check bladder scan/PVR -Would check SPEP and KLFLC -Cautious use of eliquis given CKD Please call [phone] with ?'s Subjective Subjective: SCr 2.7 Lasix being held today Weight stable at 183 Some ?anxiety/SOB overnight DIVINA with LVEF 45-50%; no clot; PFO present ("very tiny resting bidirectional shunt") Objective Vital Signs and I&Os Vital Signs Date Time Temp Pulse Resp B/P Pulse O2 O2 Flow FiO2 Ox Delivery Rate 07/09 1036 96 Room Air Room Air 07/09 1003 78 118/50 07/09 1000 78 118/50 07/09 0842 97.6 69 18 110/52 96 Room Air 07/09 0000 95 07/08 2207 97.7 70 18 100/52 07/08 2130 97.7 70 18 100/52 94 Room Air 07/08 2052 100 Nasal 2.0L Cannula 07/08 1539 97.5 82 20 106/42 98 Nasal 2.0L Cannula 07/08 1412 95 Room Air 07/08 1240 134/70 Intake & Output 07/09 1600 07/09 0400 07/08 1600 07/08 0400 07/07 1600 07/07 0400 Intake Total 120 240 480 240 480 610 Output Total 300 150 750 800 925 600 Balance -180 90 -270 -560 -445 10 Intake, IV 10 Intake, Oral 120 240 480 240 480 600 Output, Urine 300 150 750 800 925 600 Patient 183 lb 182 lb Weight Physical Exam: Gen - NAD HEENT - JVP visible but not up CV - RRR Chest - decreased breath sounds L base Abd - soft, nontender Ext - 1-2+ edema to thighs Neuro - AOX3 Current Medications: Current Medications Sig/Jaswinder Start time Last Medication Dose Route Stop Time Status Admin Acetaminophen 650 MG Q6P PRN 07/04 1245 AC 07/05 PO 2107 Acetazolamide 250 MG ONCE ONE 07/08 1145 DC 07/08 PO 07/08 1146 1240 Albuterol Sulfate 3 ML BID 07/04 2200 AC 07/09 INH 1035 Allopurinol 100 MG DAILY 07/04 1234 AC 07/09 PO 1000 Apixaban 2.5 MG BID 07/04 1235 AC 07/09 PO 0959 Aspirin Buffered 81 MG DAILY 07/04 1351 AC 07/09 PO 0959 Atorvastatin Calcium 80 MG 1700 07/05 1700 AC 07/08 PO 1801 Budesonide/ 2 PUF BID 07/04 1235 AC 07/09 Formoterol Fumarate INH 1003 Carvedilol 18.75 MG BID 07/06 2200 AC 07/09 PO 1000 Digoxin 0.125 MG TUES THURS SAT 07/07 1000 AC 07/09 PO 1003 Furosemide 40 MG 7:30 AM, & 4:30 PM 07/04 1630 DC 07/08 IV 1801 Levothyroxine Sodium 0.025 MG DAILY AC 07/05 0700 AC 07/09 PO 0643 Magnesium Oxide 400 MG ONE ONE 07/08 1145 DC 07/08 PO 07/08 1146 1241 Melatonin 5 MG AT BEDTIME 07/08 2200 AC PO Omeprazole 40 MG BID 07/04 2200 AC 07/09 PO 1000 Oxycodone/ 1 TAB Q6P PRN 07/04 1245 AC 07/08 Acetaminophen PO 2350 Polyethylene Glycol 17 GM DAILY 07/05 1000 AC 07/06 PO 1012 Prednisone 5 MG DAILY 07/04 1236 AC 07/09 PO 0959 Ramelteon 8 MG AT BEDTIME 07/09 2200 AC PO Senna/Docusate Sodium 2 TAB QPM 07/04 2200 AC PO Results Pertinent Lab Results: Laboratory Tests 07/09 07/08 07/08 07/07 07/07 0850 0645 0600 2110 0938 Blood Gas pH (7.35 - 7.45 PH) 7.51 H pCO2 (35 - 45 TORR) 41 pO2 (80 - 100 TORR) 64 L HCO3 (21 - 28 MEQ/L) 33 H ABG O2 Sat (Measured) (>96.0 %) 92.0 L Carboxyhemoglobin (1.5 - 5.0 %) 0.3 L O2 Concentration % R/A Chemistry Sodium (137 - 145 mmol/L) 139 140 139 Potassium (3.5 - 5.1 mmol/L) 4.2 4.2 3.8 Chloride (98 - 107 mmol/L) 97 L 96 L 94 L Carbon Dioxide (22 - 30 mmol/L) 31 H 36 H 37 H Anion Gap (5 - 16) 11 8 8 BUN (9 - 20 mg/dL) 41 H 37 H 32 H Creatinine (0.7 - 1.2 mg/dL) 2.7 H 2.3 H 2.1 H Estimated GFR (>60 ml/min) 23 L 27 L 30 L BUN/Creatinine Ratio (7 - 25 %) 15.2 16.1 15.2 Magnesium (1.6 - 2.3 mg/dL) 1.9 1.8 1.9 Prot Electrophoresis Pending Total Protein (PEP) Pending Albumin % (PEP) Pending Pgjwy-2-Vuvpicnzb Pending Jtoth-7-Ylsbqeibw Pending Vujn-2-Mngiuaqd Pending Rmjd-8-Hjlfdxhu Pending Gamma Globulins Pending Abnorm Protein Band 1 Pending Abnorm Protein Band 2 Pending Abnorm Protein Band 3 Pending Miscellaneous Ref Lab Test Result Pending Phlebotomy Draw Site RIGHT BRACHIAL Imaging/Other Studies: DIVINA CONCLUSIONS 1. MIld to moderate aortic sclerosis is present with moderate aortic insufficiency. 2. Mitral leaflet thickening is present with mild mitral insufficiency and left atrial enlargement. 3. Moderate spontaneous contrast is present in the left atrium and appendage. 4. There is no thrombus detected in the atrial appendage. 5. There is no pericardial effusion present. 6. The pulmonary venous anatomy is normal with normal doppler profiles. 7. The left ventricular chamber size is normal wth mildly depressed LV systolic function. Accurate wall motion assessment was not possible. 7. The right heart structurees are grossly normal. The RV systolc pressure could not be assessed. 8. A PFO is present with a very tiny resting bidirectional shunt. 9. Pacemaker wires are present in the right heart chambers 10. Grade II to III atheromatous plaque is present in the thoracic aorta. Multiple areas of mobile debris are noted..
[2016-07-09 15:45] VITALS: BP 110/50
--- NOTE | 2016-07-09 18:44 | NUR ---
POST RESIDUAL VOID 54 ML- AFTER VOIDING 100 ML IN URINAL.
--- NOTE | 2016-07-09 20:02 | PN- Cardiology ---
Subjective Subjective: Slowly improving. No CV symptoms at the moment. Creatiinine further increased today. Objective Vital Signs and I&Os Vital Signs Date Time Temp Pulse Resp B/P Pulse O2 O2 Flow FiO2 Ox Delivery Rate 07/09 1848 97 Room Air Room Air 07/09 1545 97.6 71 18 110/50 96 Room Air 07/09 1036 96 Room Air Room Air 07/09 1003 78 118/50 07/09 1000 78 118/50 07/09 0842 97.6 69 18 110/52 96 Room Air 07/09 0000 95 07/08 2207 97.7 70 18 100/52 07/08 2130 97.7 70 18 100/52 94 Room Air 07/08 2052 100 Nasal 2.0L Cannula Intake & Output 07/09 1600 07/09 0800 07/09 0000 07/08 1600 07/08 0800 07/08 0000 Intake Total 600 120 240 480 240 Output Total 760 300 150 750 800 Balance -160 -180 90 -270 -560 Intake, Oral 600 120 240 480 240 Number 1 Bowel Movements Output, Urine 760 300 150 750 800 Patient 183 lb 182 lb Weight Physical Exam: General Appearance Alert, Oriented X3, Cooperative, No Acute Distress Skin No Rashes HEENT Atraumatic, PERRLA, EOMI, Mucous Membr. moist/pink Neck Supple, No JVD Lymphatic Cervical nl Cardiovascular Normal S1, Normal S2, irregular, 2/6 systolc murmur Lungs Clear to Auscultation, Normal Air Movement Abdomen Normal Bowel Sounds, Soft, No Tenderness Neurological Normal Speech, Strength at 5/5 X4 Ext, Normal Tone, Sensation Intact, Cranial Nerves 3-12 NL Extremities Normal Pulses, bilateral 1-2 pitting pedal edema extending up to thigh Current Medications: Current Medications Sig/Jaswinder Start time Last Medication Dose Route Stop Time Status Admin Acetaminophen 650 MG Q6P PRN 07/04 1245 AC 07/05 PO 2107 Albuterol Sulfate 3 ML BID 07/04 2200 AC 07/09 INH 1844 Allopurinol 100 MG DAILY 07/04 1234 AC 07/09 PO 1000 Apixaban 2.5 MG BID 07/04 1235 AC 07/09 PO 0959 Aspirin Buffered 81 MG DAILY 07/04 1351 AC 07/09 PO 0959 Atorvastatin Calcium 80 MG 1700 07/05 1700 AC 07/09 PO 1624 Budesonide/ 2 PUF BID 07/04 1235 AC 07/09 Formoterol Fumarate INH 1003 Carvedilol 18.75 MG BID 07/06 2200 AC 07/09 PO 1000 Digoxin 0.125 MG TUES THURS SAT 07/07 1000 AC 07/09 PO 1003 Levothyroxine Sodium 0.025 MG DAILY AC 07/05 0700 AC 07/09 PO 0643 Melatonin 5 MG AT BEDTIME 07/08 2200 AC PO Omeprazole 40 MG BID 07/04 2200 AC 07/09 PO 1000 Oxycodone/ 1 TAB Q6P PRN 07/04 1245 AC 07/08 Acetaminophen PO 2350 Patient Medication 1 ED ONE ONE 07/09 1400 DC Teaching ED 07/09 1401 Polyethylene Glycol 17 GM DAILY 07/05 1000 AC 07/06 PO 1012 Prednisone 5 MG DAILY 07/04 1236 AC 07/09 PO 0959 Ramelteon 8 MG AT BEDTIME 07/09 2200 AC PO Senna/Docusate Sodium 2 TAB QPM 07/04 2200 AC PO Results Last 48 Hrs of Labs/Mics: Laboratory Tests 07/09/16 0850: Anion Gap 11, Estimated GFR 23 L, BUN/Creatinine Ratio 15.2, Magnesium 1.9 07/08/16 0645: Anion Gap 8, Estimated GFR 27 L, BUN/Creatinine Ratio 16.1, Magnesium 1.8 07/08/16 0600: Prot Electrophoresis Pending, Total Protein (PEP) Pending, Albumin % (PEP) Pending, Erwre-1-Fwcgmyzqr Pending, Pevdu-2-Tyrhoptkk Pending, Xouw-3-Auxfknfz Pending, Dcsh-9-Lsbcloke Pending, Gamma Globulins Pending, Abnorm Protein Band 1 Pending, Abnorm Protein Band 2 Pending, Abnorm Protein Band 3 Pending, Ref Lab Test Result REPORT 07/07/16 2110: pH 7.51 H, pCO2 41, pO2 64 L, HCO3 33 H, ABG O2 Sat (Measured) 92.0 L, Carboxyhemoglobin 0.3 L, O2 Concentration % R/A, Phlebotomy Draw Site RIGHT BRACHIAL Assessment/Plan Assessment/Plan Assessment: 1. CHest pain; rule out ACS; minimallly elevated troponin 2. Probable TIA with left upper extremity weakness 3. Atrial fibrillation with episodes of elevated ventricular rate -the patient has known atrial fibrillation underlying his paced rhythm. Episodes of elevated rate have been noted. 4. History of CAD 5. Chronic renal insufficiency 6. Anemia 7. Elevated proBNP 8. Lorin cell tumor; s/p recent surgery. 9. LE edema / venous insufficiency. 10. PFO 11. Mobile aortic atheromatous plaque Recommendations: -DIVINA showed no valvular lesions; a very small PFO and moderate atheromatous aortic plaque with areas of mobile debris in the distal arch and descending thoracic aorta. NO thrombi were detected. -Neurology input noted -Keep the patient on telemetry -Agree with plans to hold diuretics and followup labs in the AM -For now, I would suggest continuing Eliquis at present dose and continuing low dose ASA but will discuss further with Neurology. -Possible discharge planning depending on AM labs. Continue telemetry? Yes
[2016-07-09 23:49] VITALS: BP 108/50
--- NOTE | 2016-07-10 07:43 | PN- Housestaff ---
ZOLTAN CARRERA,JOSE 07/10/16 0743: Subjective Follow-up For: chest pain Tele-Events Since Last Visit: single pacing 60-80 pvs bbb Subjective: Pt seen this morning, reported good night sleep on the recliner. He likes to sleep on the recliner because he gets anxious on the bed, but can lie flat on the recliner without getting short of breath. He feels well. Ready to go home. Reports no pain. Kidney functions has improved to 2.2. Plan for discharge today. Review of Systems Constitutional: Reports: see HPI. Objective Last 24 Hrs of Vital Signs/I&O Vital Signs Date Time Temp Pulse Resp B/P Pulse O2 O2 Flow FiO2 Ox Delivery Rate 07/10 0827 98.2 70 20 100/50 93 Room Air 07/10 0000 95 07/09 2349 98.1 71 18 108/50 95 Room Air 07/09 2221 73 120/50 07/09 1848 97 Room Air Room Air 07/09 1545 97.6 71 18 110/50 96 Room Air 07/09 1036 96 Room Air Room Air 07/09 1003 78 118/50 07/09 1000 78 118/50 07/09 0842 97.6 69 18 110/52 96 Room Air Intake & Output 07/10 1600 07/10 0800 07/10 0000 Intake Total 480 240 Output Total 350 150 Balance 130 90 Intake, Oral 480 240 Output, Urine 350 150 Patient 83.007 kg Weight Physical Exam General Appearance: Alert, Oriented X3, Cooperative, No Acute Distress Cardiovascular: irregular rate Lungs: Clear to Auscultation, Normal Air Movement Abdomen: Normal Bowel Sounds, Soft, No Tenderness Extremities: 2+ pitting edema up to mid calf Current Medications: Current Medications Sig/Jaswinder Start time Last Medication Dose Route Stop Time Status Admin Acetaminophen 650 MG Q6P PRN 07/04 1245 AC 07/05 PO 2107 Albuterol Sulfate 3 ML BID 07/04 2200 AC 07/09 INH 1844 Allopurinol 100 MG DAILY 07/04 1234 AC 07/09 PO 1000 Apixaban 2.5 MG BID 07/04 1235 AC 07/09 PO 2209 Aspirin Buffered 81 MG DAILY 07/04 1351 AC 07/09 PO 0959 Atorvastatin Calcium 80 MG 1700 07/05 1700 AC 07/09 PO 1624 Budesonide/ 2 PUF BID 07/04 1235 AC 07/09 Formoterol Fumarate INH 2209 Carvedilol 18.75 MG BID 07/06 2200 AC 07/09 PO 2221 Digoxin 0.125 MG TUES THURS SAT 07/07 1000 AC 07/09 PO 1003 Levothyroxine Sodium 0.025 MG DAILY AC 07/05 0700 AC 07/10 PO 0620 Melatonin 5 MG AT BEDTIME 07/08 2200 AC 07/09 PO 2208 Omeprazole 40 MG BID 07/04 2200 AC 07/09 PO 2209 Oxycodone/ 1 TAB Q6P PRN 07/04 1245 AC 07/08 Acetaminophen PO 2350 Patient Medication 1 ED ONE ONE 07/09 1400 DC Teaching ED 07/09 1401 Polyethylene Glycol 17 GM DAILY 07/05 1000 AC 07/06 PO 1012 Potassium Chloride 40 MEQ ONCE ONE 07/10 0830 DC PO 07/10 0831 Prednisone 5 MG DAILY 07/04 1236 AC 07/09 PO 0959 Ramelteon 8 MG AT BEDTIME 07/09 2200 AC 07/09 PO 2209 Senna/Docusate Sodium 2 TAB QPM 07/04 2200 AC PO Last 24 Hrs of Lab/Pro Results Last 24 Hrs of Labs/Mics: Laboratory Tests 07/10/16 0720: Anion Gap 8, Estimated GFR 29 L, BUN/Creatinine Ratio 17.7, Magnesium 2.0 07/09/16 0850: Anion Gap 11, Estimated GFR 23 L, BUN/Creatinine Ratio 15.2, Magnesium 1.9 Assessment/Plan Assessment: Mr. Ye is a pleasant 85-year-old male with known history of CAD status post 7 stent placement, A. fib status post pacemaker and defibrillator placement a year ago, systolic heart failure (HFrEF) with EF of 40%, COPD, hypertension who was recently discharged from [facility] after treatment of community- acquired pneumonia and congestive heart failure was sent from [facility] after he developed acute onset left-sided chest pain squeezing in nature associated with dizziness and shortness of breath. In summary, pt was admitted for chest pain with minimally elevated troponin of 0.12 in the settings of atrial fibrillation with RVR (up to 140s,despite having pacemaker) that trended down and chest pain has resolved. The chest pain with positive troponin is more consistent of demand ischemia in the settings of rapid ventricular rate. He then developed TIA (left arm weakness) 1 day after admission, that has resolved, but was concerning because he is already anticoagulated with eliquis 2.5 bid (renally and age adjusted) and aspirin. Statin changed from simvastatin to atorvastatin 80mg. Pacemaker interrogated, and setting changed as per Dr. Richey's recc. Carvedilol increased to 18.75 bid, digoxin added 0.125 mg 3X/week, rate has been better controlled since (around 60s to 80s). DIVINA showed small PFO, but unlikely to be the source of his TIA, no surgical intervention at this time. TIA most likely precipated by either atrial fibrillation or mobile debris in distal arch and descending aorta (found on DIVINA) . Due to his kidney functions, Dr. Vidales does not want to increase eliquis dose. Given his heart history, aspirin is a better choice than plavix. We are not comfortable sending him out on aspirin, plavix, and eliquis. Kidney functions also worsened, possibly due to IV lasix bid given inpatient and toradol that was given one time. NSAIDs added to his allergy list. His kidney functions improved after holding IV lasix. PO lasix to be resumed at home. Will need to follow up with Dr. Dowd for kidney functions, and f/u lab results (SPEP,kappa,lambda). # Worsening kidney function - up to 2.7 from 2.2, back to 2.2 at discharge * Avoid NSAIDs * Added NSAIDs to allergy list * Check PVR # Sleep * Melatonin at bedtime * Rozerem at bedtime * Consider meds for anxiety # Chest pain (resolved) likely demand ischemia - Minimally elevated troponin (max 0.12) with no significant ST/T wave changes - Echo: The left ventricular chamber size is normal with global hypokinesia and an ejection fraction of approximately 45%. A followup examination is suggested when the patient's heart rate is better controlled to reassess LV function. Mild tricuspid insufficiency is present with mild pulmonary hypertension * Cardio consult appreciated * Nuclear stress test can be done as outpatient * No plan for Cath contrast load might worsen kidney function * F/U SPEP, kappa, lambda # TIA - transient left sided weakness (resolved): Sxs resolved/no current neuro deficits - Carotid doplper: The right internal carotid artery shows no hemodynamically significant stenosis. The left internal carotid artery shows no hemodynamically significant stenosis. Internal carotid artery stenoses fall in the 0-49% category by duplex Doppler velocity spectral waveform analysis. - Head CT negative - Renal has no objection to increasing eliquis to 5 bid, and to consider other anticoagulants. Warfarin should also be considered. * Continue ASA, increase lipitor to 80 mg PO daily * DIVINA 07/07 * plavix? Dr Vidales will be ok continuing him on eliquis and aspirin, or changing aspirin to plavix, but not both. # Atrial fibrillation s/p PPM placement, up to 24 beat run (asymptomatic) * Cardio consult appreciated * Continue eliquis 2.5 mg PO BID (dose adjusted due to age and cre), consider inc to 5 bid or change to another anticoagulant * Increased coreg to 18.75 bid * Started digoxin 0.125, 3X/week * Pacemaker interrogated 07/06, settings adjusted * Appreciate Dr. Richey's recc * 07/10: K 3.7, given 1X kdur * 07/06: mag 1.7, given 1X mag ox. 07/10: mag 2.0 # Elevated CRP and ESR, ? vasculitis affecting renal function - CRP 8.2 in Apr 2016, >15 in May 2016 - ESR 110 in May 2016 * Appreciate renal consult * Consider rheum consult # Left arm swelling most likely due to IV infiltration that is nontender # Right heel wound that is slightly tender, and left feel skin changes that is nontender - Wound care consulted, most likely due to chronic pressure injury * Recc continuous offloading and avoid trauma. Can be dressed for protection but no wound care dressing required. * Boot for right leg * If this fails to resolve lower extremity arterial ultrasound would be appropriate to exclude complicating getting peripheral vascular disease * PT evaluation # Systolic CHF * Bilateral lower extremity edema without any overt signs of pulmonary edema on clinical exam * Elevate legs * Lasix 40 mg IV BID given since admission, then was held from 07/09 due to worsening kidney functions, kidney functions subsequently improved * Strict Is/Os, daily weights * Consider entresto. Renal ok with entresto, but wait until renal function stabilize * 07/08: ABG shows metabolic alkalosis, as he needs to be diuresed, given 1X acetazolamide, and will give it if bicarb > 35 on daily BEP. # Leukocytosis (resolved) - Mild leukocytosis of 11,100 on admission without evidence of focal infection ( denies any productive cough, fever, chills, urinary burning or pain) - CXR revealed new patchy reticular nodular airspace opacity questionable for pneumonia versus atelectasis * Hold off Abx for now # COPD * Continue home inhalers * Home prednisone daily # HLD * Change simvastatin to a more potent statin Diet: CHF diet DVTP: Eliquis, alps Mild pain pathway FULL CODE Labs: bep and mag for hypokalemia and hypomag Problem List: 1. Chest pain syndrome 2. TIA (transient ischemic attack) Pain Ratin Pain Location: none Pain Goal: Remain pain free Pain Plan: none Tomorrow's Labs & Rationales: none DVT/Prophylaxis: pharmacological Consulting Request: Consulting Specialty: Cardiology Consulting Physician: Obey Vidales MD Reason for Consult: chest pain MAURICIO ARRIOLA MD 07/10/16 1059: Attending MD Review Statement Attending Statement Attending MD Statement: examined this patient, discuss w/resident/PA/CONTINUITY WRITER, agreed w/resident/PA/CONTINUITY WRITER, reviewed EMR data (avail) Attending Assessment/Plan: 85M PMH CAD s/p multiple stents, chronic atrial fibrillation s/p AICD/PPM, systolic heart failure (HFrEF) with EF of 40%, COPD, HTN admitted with chest pain and shortness of breath in the setting of rapid atrial fibrillation and NSTEMI. On 07/05 patient had TIA symptoms with left sided weakness that resolved after a few minutes and has not yet recurred. No complaints today. Vitals stable. Creatinine improved to 2.2. ABG shows metabolic alkalosis. Plan - Stable for discharge - Device interrogation complete - DIVINA completed, no intervention at this time - Follow cardiology recommendations - Continue ASA and high dose statin - Follow neurology recommendations - Continue Eliquis - Can continue PO Lasix on discharge - Follow up with cardiology as outpatient
[2016-07-10 08:27] VITALS: BP 100/50
--- NOTE | 2016-07-10 10:03 | NUR ---
pT HAD 14 BEAT RUN VTACH. dR [place] AWARE. EKG TO BE OBTAINED. ASYMPTOMATIC.
[2016-07-10 10:35] VITALS: BP 106/54
[2016-07-10] MEDS ORDERED: LASIX40 M1 PO (11:12)
[2016-07-10] MEDS ORDERED: LANOXIN125 MCG PO (11:27)
[2016-07-10] MEDS ORDERED: ASPIRIN EC81 M1 PO (11:27)
--- NOTE | 2016-07-10 11:44 | PN- Nephrology ---
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 Given bland urine sediment, unlikely to be glomerulonephritis/vasculitis. No evidence of paraprotein based on normal KLFLC ratio. MADONNA - Baseline renal function has been very fluctuant in past, likely reflective of volume status. I believe that his improvement in renal function over the last day is more reflective of cessation of ketorolac rather than holding diuretics. He remains significantly above his more "dry weight" and should be more actively diuresed. Anemia - Hg at goal Metabolic alkalosis - Has been given acetazolamide with improvement in his bicarb. A fib - On AC with eliquis - efficacy (risks vs benefits) in CKD not known as those patient were excluded from trial. Suggestion: -Would recommend Lasix 40mg BID at home - goal weight loss ~1lb/day as tolerated -Agree with listing NSAID as allergy -OK to use entresto, but may want to wait until renal function stabilizes given the ARB component -Daily weights at home -Cautious use of eliquis given CKD All of the above were explained to the patient and his son. He was recommended to follow-up with Dr. Dowd as well. Please call [phone] with ?'s Subjective Subjective: SCr down to 2.2 Diuretics held yesterday Pt feels more swollen KLFLC ratio 1.53 Weight stable at 183 (pt says that his weight has been as low as 158 recently) Objective Vital Signs and I&Os Vital Signs Date Time Temp Pulse Resp B/P Pulse O2 O2 Flow FiO2 Ox Delivery Rate 07/10 1035 106/54 07/10 0908 91 Room Air Room Air 07/10 0827 98.2 70 20 100/50 93 Room Air 07/10 0000 95 07/09 2349 98.1 71 18 108/50 95 Room Air 07/09 2221 73 120/50 07/09 1848 97 Room Air Room Air 07/09 1545 97.6 71 18 110/50 96 Room Air Intake & Output 07/10 1600 07/10 0400 07/09 1600 07/09 0400 07/08 1600 07/08 0400 Intake Total 480 240 720 240 480 240 Output Total 074 911 3271 150 750 800 Balance 130 90 -340 90 -270 -560 Intake, Oral 480 240 720 240 480 240 Number 1 Bowel Movements Output, Urine 681 038 3760 150 750 800 Patient 183 lb 183 lb 182 lb Weight Physical Exam: Gen - NAD HEENT - supple CV - RRR Chest - decreased breath sounds L base Abd - soft, nontender Ext - 2+ edema to thighs Neuro - AOX3 Current Medications: Current Medications Sig/Jaswinder Start time Last Medication Dose Route Stop Time Status Admin Acetaminophen 650 MG Q6P PRN / 1245 AC 07/05 PO 2107 Albuterol Sulfate 3 ML BID 07/04 2200 AC 07/10 INH 0908 Allopurinol 100 MG DAILY 07/04 1234 AC 07/10 PO 1035 Apixaban 2.5 MG BID 07/04 1235 AC 07/10 PO 1035 Aspirin Buffered 81 MG DAILY 07/04 1351 AC 07/10 PO 1035 Atorvastatin Calcium 80 MG 1700 07/05 1700 AC 07/09 PO 1624 Budesonide/ 2 PUF BID 07/04 1235 AC 07/10 Formoterol Fumarate INH 1035 Carvedilol 18.75 MG BID 07/06 2200 AC 07/10 PO 1035 Digoxin 0.125 MG TUES THURS SAT 07/07 1000 AC 07/09 PO 1003 Levothyroxine Sodium 0.025 MG DAILY AC 07/05 0700 AC 07/10 PO 0620 Melatonin 5 MG AT BEDTIME 07/08 2200 AC 07/09 PO 2208 Omeprazole 40 MG BID 07/04 2200 AC 07/10 PO 1036 Oxycodone/ 1 TAB Q6P PRN 07/04 1245 AC 07/08 Acetaminophen PO 2350 Patient Medication 1 ED ONE ONE 07/09 1400 DC Teaching ED 07/09 1401 Polyethylene Glycol 17 GM DAILY 07/05 1000 AC 07/06 PO 1012 Potassium Chloride 40 MEQ ONCE ONE 07/10 0830 DC 07/10 PO 07/10 0831 1035 Prednisone 5 MG DAILY 07/04 1236 AC 07/10 PO 1035 Ramelteon 8 MG AT BEDTIME 07/09 2200 AC 07/09 PO 2209 Senna/Docusate Sodium 2 TAB QPM 07/04 2200 AC PO Results Pertinent Lab Results: Laboratory Tests 07/10 07/09 07/08 07/08 07/07 0720 0850 0645 0600 2110 Blood Gas pH (7.35 - 7.45 PH) 7.51 H pCO2 (35 - 45 TORR) 41 pO2 (80 - 100 TORR) 64 L HCO3 (21 - 28 MEQ/L) 33 H ABG O2 Sat (Measured) (>96.0 %) 92.0 L Carboxyhemoglobin (1.5 - 5.0 %) 0.3 L O2 Concentration % R/A Chemistry Sodium (137 - 145 mmol/L) 137 139 140 Potassium (3.5 - 5.1 mmol/L) 3.7 4.2 4.2 Chloride (98 - 107 mmol/L) 96 L 97 L 96 L Carbon Dioxide (22 - 30 mmol/L) 33 H 31 H 36 H Anion Gap (5 - 16) 8 11 8 BUN (9 - 20 mg/dL) 39 H 41 H 37 H Creatinine (0.7 - 1.2 mg/dL) 2.2 H 2.7 H 2.3 H Estimated GFR (>60 ml/min) 29 L 23 L 27 L BUN/Creatinine Ratio (7 - 25 %) 17.7 15.2 16.1 Magnesium (1.6 - 2.3 mg/dL) 2.0 1.9 1.8 Prot Electrophoresis Pending Total Protein (PEP) Pending Albumin % (PEP) Pending [id number] Pending Mcwpb-7-[id number] Pending Zebc-6-Qekuxflm Pending [id number] Pending Gamma Globulins Pending Abnorm Protein Band 1 Pending Abnorm Protein Band 2 Pending Abnorm Protein Band 3 Pending Miscellaneous Ref Lab Test Result (()) REPORT Phlebotomy Draw Site RIGHT BRACHIAL Imaging/Other Studies: Gen - NAD HEENT - JVP visible but not up CV - RRR Chest - decreased breath sounds L base Abd - soft, nontender Ext - 1-2+ edema to thighs Neuro - AOX3
--- NOTE | 2016-07-10 19:35 | PN- Cardiology ---
Subjective Subjective: Stable and ready for discharge. Objective Vital Signs and I&Os Vital Signs Date Time Temp Pulse Resp B/P Pulse O2 O2 Flow FiO2 Ox Delivery Rate 07/10 1035 106/54 07/10 0908 91 Room Air Room Air 07/10 0827 98.2 70 20 100/50 93 Room Air 07/10 0000 95 07/09 2349 98.1 71 18 108/50 95 Room Air 07/09 2221 73 120/50 Intake & Output 07/10 1600 07/10 0800 07/10 0000 07/09 1600 07/09 0800 07/09 0000 Intake Total 480 240 600 120 240 Output Total 350 150 760 300 150 Balance 130 90 -160 -180 90 Intake, Oral 480 240 600 120 240 Number 1 Bowel Movements Output, Urine 350 150 760 300 150 Patient 183 lb 183 lb Weight Current Medications: Current Medications Sig/Jaswinder Start time Last Medication Dose Route Stop Time Status Admin Acetaminophen 650 MG Q6P PRN 07/04 1245 DCD 07/05 PO 2107 Albuterol Sulfate 3 ML BID 07/04 2199 DCD 07/10 INH 0908 Allopurinol 100 MG DAILY 07/04 1234 DCD 07/10 PO 1035 Apixaban 2.5 MG BID 07/04 1235 DCD 07/10 PO 1035 Aspirin Buffered 81 MG DAILY 07/04 1351 DCD 07/10 PO 1035 Atorvastatin Calcium 80 MG 1700 07/05 1700 DCD 07/09 PO 1624 Budesonide/ 2 PUF BID / 1235 DCD 07/10 Formoterol Fumarate INH 1035 Carvedilol 18.75 MG BID 07/06 2200 DCD 07/10 PO 1035 Digoxin 0.125 MG TUES THURS SAT 07/07 1000 DCD 07/09 PO 1003 Levothyroxine Sodium 0.025 MG DAILY AC 07/05 07 DCD 07/10 PO 0620 Melatonin 5 MG AT BEDTIME 07/08 2199 DCD 07/09 PO 2208 Omeprazole 40 MG BID 07/04 2199 DCD 07/10 PO 1036 Oxycodone/ 1 TAB Q6P PRN 07/04 1245 DCD 07/08 Acetaminophen PO 2350 Polyethylene Glycol 17 GM DAILY 07/05 1000 DCD 07/06 PO 1012 Potassium Chloride 40 MEQ ONCE ONE 07/10 829 DC 07/10 PO 07/10 0831 1035 Prednisone 5 MG DAILY 07/04 1236 DCD 07/10 PO 1035 Ramelteon 8 MG AT BEDTIME 07/09 2199 DCD 07/09 PO 220 Senna/Docusate Sodium 2 TAB QPM 07/04 2199 DCD PO Results Last 48 Hrs of Labs/Mics: Laboratory Tests 07/10/16 0720: Anion Gap 8, Estimated GFR 29 L, BUN/Creatinine Ratio 17.7, Magnesium 2.0 07/09/16 0850: Anion Gap 11, Estimated GFR 23 L, BUN/Creatinine Ratio 15.2, Magnesium 1.9 Assessment/Plan Assessment/Plan Assessment: 1. CHest pain; rule out ACS; minimallly elevated troponin 2. Probable TIA with left upper extremity weakness 3. Atrial fibrillation with episodes of elevated ventricular rate -the patient has known atrial fibrillation underlying his paced rhythm. Episodes of elevated rate have been noted. 4. History of CAD 5. Chronic renal insufficiency 6. Anemia 7. Elevated proBNP 8. Lorin cell tumor; s/p recent surgery. 9. LE edema / venous insufficiency. 10. PFO 11. Mobile aortic atheromatous plaque Recommendations: -DIVINA showed no valvular lesions; a very small PFO and moderate atheromatous aortic plaque with areas of mobile debris in the distal arch and descending thoracic aorta. NO thrombi were detected. - Creatinine improved todsy -For now, I would suggest continuing Eliquis at present dose and continuing low dose ASA but will discuss further with Neurology. -Discharge home today with followup with me as outpatient Continue telemetry? No
== END 2016-07-10 12:03 | disposition home health service (06) | DRG 311 ==
LOC: ENRESERVDT → ENRESERVTM → ERH 09:41 → ENPENDDIS 11:08 → 1NO 11:08 → ERHI 11:08 → 1NO 14:00
PROVIDERS: Emergency Medicine; Internal Medicine; Student in an Organized Health Care Education/Training Program; ADMIT Internal Medicine
DX: I24.8 Other forms of acute ischemic heart disease (principal); I13.0 Hypertensive heart and chronic kidney disease with heart failure and stage 1 through stage 4 chronic kidney disease, or unspecified chronic kidney disease; E87.70 Fluid overload, unspecified; J44.9 Chronic obstructive pulmonary disease, unspecified; I50.22 Chronic systolic (congestive) heart failure; L89.619 Pressure ulcer of right heel, unspecified stage; N18.3 Chronic kidney disease, stage 3 (moderate); I48.91 Unspecified atrial fibrillation; G45.9 Transient cerebral ischemic attack, unspecified; G83.24 Monoplegia of upper limb affecting left nondominant side; Z79.01 Long term (current) use of anticoagulants; I25.10 Atherosclerotic heart disease of native coronary artery without angina pectoris; Z95.5 Presence of coronary angioplasty implant and graft; Z95.0 Presence of cardiac pacemaker; E78.5 Hyperlipidemia, unspecified; Z87.891 Personal history of nicotine dependence; D64.9 Anemia, unspecified
CPT/HCPCS: 1NP; 1NSP; 83883; 36415; 81003; 82436; 84165; 87070; 93005; 93010; 93306; 93325; 94799; 97110-GO; 97116-GO; 97162-GP; J1885; J1940; J3490; J7512

== ENCOUNTER 2016-07-16 10:36 | Observation (INO) | payer OTHER, BC, MEDICARE ==
[~2016-07-16] VITALS: Ht 167.6 cm; Wt 82.3 kg
[~2016-07-16 10:36] MED LIST changes: +ASPIRIN EC81 M1 PO; +LANOXIN125 MCG PO; +LIPITOR80 M1 PO; +SENNA S TABLET1 EACH PO
--- NOTE | 2016-07-16 10:47 | NUR ---
C/O SOB WITH LEFT SIDED CHEST PAIN, HEADACHE AND INCREASED LEG SWELLING. 02 SAT 82% ON ROOM AIR. BROUGHT TO ROOM 3. 02 APPLIED AT 2L.
--- NOTE | 2016-07-16 10:59 | ED GENERAL ADULT ---
History of Present Illness General Chief Complaint: Dyspnea (COPD, CHF, Other) Stated Complaint: SIB MD NARVAEZ SOB,CP,PUGH Source: patient, old records Exam Limitations: no limitations Reconcile Medications Allopurinol 100 MG TABLET 1 TAB PO DAILY GOUT Apixaban (Eliquis) 2.5 MG TABLET 1 TAB PO BID BLOOD THINNER (Reported) Aspirin (Ecotrin*) 81 MG TABLET. 81 MG PO DAILY Heart health Atorvastatin Calcium (Lipitor) 80 MG TABLET 1 TAB PO DAILY High cholesterol Budesonide/Formoterol Fumarate (Symbicort 160-4.5 Mcg Inhaler) 160 MCG-4.5 MCG/ ACTUATION HFA.AER.AD 2 PUF INH BID BREATHING PROBLEMS (Reported) Carvedilol (Coreg) 6.25 MG TABLET 18.75 MG PO BID heart rate Cyanocobalamin/FA/Pyridoxine (Folbic Tablet) 1 EACH TABLET 1 TAB PO DAILY SUPPLEMENT (Reported) Digoxin (Lanoxin) 125 MCG TABLET 0.125 MG PO SAT Heart rate control Esomeprazole (Nexium) 40 MG CAPSULE.DR 1 CAP PO BID GI (Reported) Furosemide (Lasix) 40 MG TABLET 1 TAB PO DAILY CHF Levothyroxine Sodium 25 MCG TABLET 1 TAB PO DAILY AC THYROID Losartan Potassium (Unknown Strength) TABLET (Unknown Dose) UNKNOWN (Reported ) Oxycodone HCl/Acetaminophen (Percocet 5-325 MG Tablet) 5 MG-325 MG TABLET 1-2 TAB PO Q4-6 PRN PAIN Polyethylene Glycol 3350 (Clearlax) 17 GRAM/DOSE POWDER 1 CAP PO DAILY GI ( Reported) Prednisone 5 MG TABLET 1 TAB PO QAM GOUT (Reported) Sennosides/Docusate Sodium (Senna S Tablet) 8.6 MG-50 MG TABLET 2 TAB PO QPM CONSTIPATION (Reported) Triage Note: C/O SOB WITH LEFT SIDED CHEST PAIN, HEADACHE AND INCREASED LEG SWELLING. 02 SAT 82% ON ROOK AIR. BROUGHT TO ROOM 3. 02 APPLIED AT 2L. Triage Nurses Notes Reviewed? yes HPI: Patient is an 85-year-old male presents complaining of dyspnea, left-sided chest pain, headache. Dyspnea onset yesterday. Sided chest pain is mild, pressure sensation, no exacerbating or alleviating factors. Headache is bitemporal and frontal currently severe, no exacerbating or alleviating factors. Headache onset at approximately 8 AM this morning. Patient is on anticoagulant therapy. Chronic bilateral lower extremity edema, per son mildly increased from his baseline. Patient denies fevers, chills, vomiting (AVE HERR) Vital Signs & Intake/Output Vital Signs & Intake/Output Vital Signs Date Time Temp Pulse Resp B/P Pulse O2 O2 Flow FiO2 Ox Delivery Rate 07/16 1745 97.4 75 17 120/55 95 Room Air Room Air 07/16 1446 96.8 68 20 106/53 95 Room Air Room Air 07/16 1310 97.8 72 22 99/52 Nasal 1.0L Cannula 07/16 1143 99.8 07/16 1143 97 Nasal 1.0L Cannula 07/16 1048 99.8 78 24 124/58 100 Nasal 2.0L Cannula Allergies Coded Allergies: NSAIDS (Non-Steroidal Anti-Inflamma (Intermediate, POOR kidney functions, avoid NSAIDs! 07/16/16) (CLEMENT CARRERA,TANJA Stern) Past History Travel History Traveled to [place] past 21 day No Medical History Any Pertinent Medical History? see below for history Neurological: STROKE EENT: cataracts Cardiovascular: AFIB, CHF, hypertension, hyperlipidemia, myocardial infarction Respiratory: NONE Gastrointestinal: GERD Hepatic: NONE Renal: ? 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 SISTER (CAD). Hx Contributory? No (AVE HERR) Review of Systems Review of Systems Constitutional: Reports: malaise. Denies: chills, fever. EENTM: Reports: no symptoms. Respiratory: Reports: cough (chronic, unchanged), short of breath. Cardiovascular: Reports: peripheral edema. GI: Denies: abdominal pain, nausea, vomiting. Genitourinary: Reports: no symptoms. Musculoskeletal: Reports: back pain. Skin: Reports: lesions (sacral ulcer). Neurological/Psychological: Reports: headache. Denies: numbness. Hematologic/Endocrine: Denies: bruising, bleeding. Immunologic/Allergic: Denies: splenectomy. (AVE HERR) Physical Exam Physical Exam General Appearance: alert, awake Head: atraumatic, normal appearance Eyes: Bilateral: normal appearance, PERRL, EOMI. Ears, Nose, Throat: normal pharynx, normal ENT inspection, hearing grossly normal Neck: normal inspection, supple, full range of motion Respiratory: chest non-tender, diminished lung sounds left lung base Cardiovascular: regular rate/rhythm, murmur Gastrointestinal: soft, non-tender Back: normal inspection, normal range of motion, no vertebral tenderness Extremities: 4+ bilateral lower extremity edema Neurologic/Psych: awake, alert, oriented x 3, gasket maker II-XII nml as tested Skin: warm/dry Lymphatic: no anterior cervical angelita Core Measures ACS in differential dx? Yes ASA ordered for poss ACS? Yes-ordered CVA/TIA Diagnosis: No Severe Sepsis Present: No Septic Shock Present: No (AVE HERR) Progress Differential Diagnoses I considered the following diagnoses in my evaluation of the patient: CHF, acute coronary syndrome, pneumonia, sepsis Diagnostic Imaging: Viewed by Me: CT Scan. Discussed w/RAD: CT Scan. Radiology Impression: PATIENT: HESHAM CARLOS PRESENT AGE: 85 PATIENT ACCOUNT NO: [id number] : 32 LOCATION: [facility] ORDERING PHYSICIAN: AVE BAXTER SERVICE DATE: 07/16/16 EXAM TYPE: CAT - CT HEAD WO IV CONTRAST EXAMINATION: CT HEAD WITHOUT CONTRAST CLINICAL INFORMATION: Headache starting at 8:00 AM. COMPARISON: 07/05/2016 TECHNIQUE: Contiguous axial imaging was performed from the skull base to vertex without intravenous administration of contrast. DLP: 529 mGy-cm FINDINGS: There is no evidence of acute intracranial hemorrhage or territorial infarction. No abnormal mass effect or midline shift is seen. Haq to white matter differentiation is well preserved. No extra-axial fluid collections are identified. There is stable mild generalized prominence of the ventricles, sulci , and extra-axial CSF spaces. Stable minor periventricular hypoattenuation. No acute osseous abnormalities. The imaged paranasal sinuses, mastoid air cells and middle ear cavities are clear. The temporal mandibular joints articulate normally. There have been bilateral ocular lens extractions. There is focal loss of the subcutaneous fat in the left frontal region compatible with a scar, unchanged. There is perceived prevertebral soft tissue prominence on the reed or wind instrument tuner image, most likely on the basis of obliquity. Correlation with direct inspection is suggested. A CT neck could clarify if clinically indicated. IMPRESSION: No acute intracranial pathology. Perceived prevertebral soft tissue prominence on the reed or wind instrument tuner image. Correlation with direct inspection is suggested. A CT of the neck could be performed if clinically indicated. DICTATED BY: DEVIN MEZA MD DATE/TIME DICTATED:07/16/161110 STAYING MACHINE OPERATOR:CHURCH DATE/TIME TRANSCRIBED:07/16/161110 CONFIDENTIAL, DO NOT COPY WITHOUT APPROPRIATE AUTHORIZATION. <Electronically signed in Other Vendor System> SIGNED BY: DEVIN MEZA MD 07/16/16 111 CXR Impression: PATIENT: HESHAM CARLOS SR PRESENT AGE: 85 PATIENT ACCOUNT NO: [id number] : 32 LOCATION: [facility] ORDERING PHYSICIAN: AVE BAXTER SERVICE DATE: 07/16/16 EXAM TYPE: RAD - XRY-PORTABLE CHEST XRAY EXAMINATION: XR PORTABLE CHEST CLINICAL INFORMATION: Dyspnea, hypoxia, diminished lung sounds left lung. COMPARISON: Chest radiography 07/04/2016. TECHNIQUE: Portable AP view of the chest was obtained. FINDINGS: Left pectoral cardiac device is redemonstrated, with leads terminating over the right atrium, right ventricle, and coronary sinus. The lungs are fairly well expanded. There is central vasculature prominence again noted. Mild blunting of the right costophrenic angle with thickening of the right inferior lateral pleural stripe. No pneumothorax. Linear opacification in the left perihilar region most suspicious for subsegmental atelectasis. Mediastinal contours are unchanged. Aortic atherosclerotic calcification. No acute osseous abnormalities. IMPRESSION: Slightly worsened vascular congestion compared to prior examination. Suspect small right pleural effusion. DICTATED BY: SANDY MODI MD DATE/TIME DICTATED:07/16/161129 STAYING MACHINE OPERATOR:CHURCH DATE/TIME TRANSCRIBED:07/16/161129 CONFIDENTIAL, DO NOT COPY WITHOUT APPROPRIATE AUTHORIZATION. <Electronically signed in Other Vendor System> SIGNED BY: SANDY MODI MD 07/16/16 1136 Initial ED EKG: pacemaker rhythm, poor baseline in V1 through V3, no apparent acute changes from previous EKG Prior EKG: unchanged Repeat EKG: unchanged Rhythm Strip: pacemaker rhythm (AVE HERR) Plan of Care: Orders Procedure Date/time Status Heart Healthy Diet 07/16 D Active Patient Data 07/[address] in observation 07/16 1900 Active TROPONIN LEVEL 07/16 1630 Complete EKG 07/16 1630 Active BLOOD CULTURE 07/16 1054 Active TROPONIN LEVEL 07/16 1054 Complete LACTIC ACID 07/16 1054 Complete COMPREHENSIVE METABOLIC PANEL 07/16 1054 Complete CBC WITHOUT DIFFERENTIAL 07/16 1054 Complete B-TYPE NATRIURETIC PEP (BNP) 07/16 1054 Complete EKG 07/16 1038 Active Laboratory Tests 07/16/16 1640: Troponin I 0.18 *H 07/16/16 1354: Lactic Acid Cancelled 07/16/16 1130: Anion Gap 10, Estimated GFR 39 L, BUN/Creatinine Ratio 27.1 H, Glucose 183 H, Lactic Acid 1.9, Calcium 9.4, Total Bilirubin 1.6 H, AST 52, ALT 57, Alkaline Phosphatase 123, Troponin I 0.19 *H, [id number]-[id number] Pept 7000 H, Total Protein 6.2 L, Albumin 3.0 L, Globulin 3.2, Albumin/Globulin Ratio 0.9 L, CBC w Diff MAN DIFF ORDERED, RBC 3.18 L, MCV 93.1, MCH 30.5, RDW 15.8 H, MPV 9.3, Gran % 88.3 H, Lymphocytes % 4.9 L, Monocytes % 6.4, Eosinophils % 0.1, Basophils % 0.3, Absolute Granulocytes 11.5 H, Absolute Lymphocytes 0.6 L, Absolute Monocytes 0.8 H, Absolute Eosinophils 0, Absolute Basophils 0, Platelet Estimate VERIFIED BY SMEAR, Anisocytosis 1+, PUBS MCHC 32.8 L Microbiology 07/16 1130 BLOOD: Blood Culture - RECD 07/16 1054 BLOOD: Blood Culture - ORD 07/16/2016 12:34:35 PM: Patient discussed with and evaluated by Dr. Narvaez, results of labs and chest x-ray reviewed. Aware of troponin. Per Dr. Narvaez patient has had mild elevations of his troponin 2-3 other times this year. Recommend repeat ekg and troponin in 4 hours, monitor diuresis/output. Call back with results and will decide on disposition. 07/16/2016 3:10:15 PM: Patient reevaluated, resting comfortably without supplemental oxygen. Patient's oxygen saturation mid 90's on room air. Patient has had approximately 250-300ml of urine output 07/16/2016 6:16:29 PM: Discussed with Dr. Narvaez: recommend bringing patient in to the hospital, Lasix IV BID, continue baby aspirin. Obtain limited echo and then will decide if patient needs to remain over the weekend for diuresis or if can follow up outpatient and in the CHF clinic. (AVE HERR) Departure Departure Disposition: STILL A PATIENT Condition: Fair Clinical Impression Primary Impression: Elevated troponin Secondary Impressions: CHF exacerbation Referrals: ERINN CARRERA,DOUGLAS Bustamante (PCP/Family) Departure Forms: Customer Survey General Discharge Information Observation Note Spoke With: BOBBI BARROSO MD Place Patient In: Non-ED OBS Care Area Rationale for Observation: My rational for observation is as follows: IV diuresis, continuous cardiac monitoring, serial EKGs, serial troponins, echocardiogram, cardiology consultation (AVE HERR) PA/MANAGER MSW Co-Sign Statement Statement: ED Attending supervision documentation- [x] I saw and evaluated the patient. I have also reviewed all the pertinent lab results and diagnostic results. I agree with the findings and the plan of care as documented in the PA's/MANAGER MSW's documentation. [] I have reviewed the ED Record and agree with the PA's/MANAGER MSW's documentation. [] Additions or exceptions (if any) to the PAs/MANAGER MSW's note and plan are summarized below: [] (CLEMENT CARRERA,TANJA Stern) Critical Care Note Critical Care Note Critical Care Time: non-applicable (AVE HERR)
--- NOTE | 2016-07-16 11:00 | NUR ---
PT TO CAT SCAN VIA STRETCHER NOW.
--- NOTE | 2016-07-16 11:19 | CT SCAN REPORT ---
EXAMINATION: CT HEAD WITHOUT CONTRAST CLINICAL INFORMATION: Headache starting at 8:00 AM. COMPARISON: 07/05/2016 TECHNIQUE: Contiguous axial imaging was performed from the skull base to vertex without intravenous administration of contrast. DLP: 529 mGy-cm FINDINGS: There is no evidence of acute intracranial hemorrhage or territorial infarction. No abnormal mass effect or midline shift is seen. Haq to white matter differentiation is well preserved. No extra-axial fluid collections are identified. There is stable mild generalized prominence of the ventricles, sulci, and extra-axial CSF spaces. Stable minor periventricular hypoattenuation. No acute osseous abnormalities. The imaged paranasal sinuses, mastoid air cells and middle ear cavities are clear. The temporal mandibular joints articulate normally. There have been bilateral ocular lens extractions. There is focal loss of the subcutaneous fat in the left frontal region compatible with a scar, unchanged. There is perceived prevertebral soft tissue prominence on the technical communicator image, most likely on the basis of obliquity. Correlation with direct inspection is suggested. A CT neck could clarify if clinically indicated. IMPRESSION: No acute intracranial pathology. Perceived prevertebral soft tissue prominence on the technical communicator image. Correlation with direct inspection is suggested. A CT of the neck could be performed if clinically indicated.
--- NOTE | 2016-07-16 11:36 | RADIOLOGY REPORT ---
EXAMINATION: XR PORTABLE CHEST CLINICAL INFORMATION: Dyspnea, hypoxia, diminished lung sounds left lung. COMPARISON: Chest radiography 07/04/2016. TECHNIQUE: Portable AP view of the chest was obtained. FINDINGS: Left pectoral cardiac device is redemonstrated, with leads terminating over the right atrium, right ventricle, and coronary sinus. The lungs are fairly well expanded. There is central vasculature prominence again noted. Mild blunting of the right costophrenic angle with thickening of the right inferior lateral pleural stripe. No pneumothorax. Linear opacification in the left perihilar region most suspicious for subsegmental atelectasis. Mediastinal contours are unchanged. Aortic atherosclerotic calcification. No acute osseous abnormalities. IMPRESSION: Slightly worsened vascular congestion compared to prior examination. Suspect small right pleural effusion.
[2016-07-16 11:50] LABS: ABSOLUTE BASOPHIL COUNT 0 /CUMM (0.0-0.2); ABSOLUTE EOSINOPHIL COUNT 0 /CUMM (0.0-0.7); ABSOLUTE GRANULOCYTE CT 11.5 /CUMM (1.4-6.5); ABSOLUTE LYMPH COUNT 0.6 /CUMM (1.2-3.4); ABSOLUTE MONOCYTE COUNT 0.8 /CUMM (0.10-0.60); BASOPHIL % 0.3 % (0.0-2.0); EOSINOPHIL % 0.1 % (0-5); GRANULOCYTE % 88.3 % (42.2-75.2); HEMATOCRIT 29.6 % (42-52); MEAN CORPUSCULAR HGB 30.5 PG (27.0-31.0); MEAN CORPUSCULAR HGB CONC 32.8 G/DL (33.0-37.0); MEAN CORPUSCULAR VOLUME 93.1 FL (80.0-94.0); MEAN PLATELET VOLUME 9.3 FL (7.4-10.4); PLATELET COUNT 197 /CUMM (130-400); RBC DISTRIBUTION WIDTH 15.8 % (11.5-14.5); RED BLOOD CELL CT 3.18 /CUMM (4.70-6.10)
--- NOTE | 2016-07-16 12:07 | NUR ---
PT TURNED AND REPOSITIONED. PT'S COCCYX AREA NOTED TO HAVE LARGE AREA OF BLANCHABLE REDNESS WITHOUT ANY SKIN BREAKDOWN. PT REPORTS IT FEELS SORE.
--- NOTE | 2016-07-16 12:25 | NUR ---
DR. NARVAEZ AT BEDSIDE FOR EVAL.
--- NOTE | 2016-07-16 12:33 | NUR ---
CRITICAL TEST RESULTS [id number] TERRANCEHESHAM T SR 85 M TESTS AND RESULTS: TROPONIN 0.19 Results received and read back by: DAVY THAYER Results received date and time: 07/16/16 1233 The following provider was notified of the results, and read the results back: VEE ORDONEZ Notified date and time: 07/16/16 at 1233 *VEE ORDONEZ TOOK CRITICAL VALUE
--- NOTE | 2016-07-16 14:13 | NUR ---
PT PROVIDED LUNCH TRAY. TOLERATING WELL. PT TITRATED OFF OXYGEN TO RA AND IS MAINTAINING SAT AT 96%. WILL CONTINUE TO MONITOR
[2016-07-16] MEDS ORDERED: LOSARTAN POTAS100 M1 (15:23)
--- NOTE | 2016-07-16 15:40 | NUR ---
BARRIER CREAM APPLIED TO COCCYX AREA. PT REPOSITIONED IN BED.
--- NOTE | 2016-07-16 16:27 | Cons- Cardiology ---
General Information and HPI Consulting Request Date of Consult: 07/16/16 Requested By: Steve BAXTER Reason for Consult: Worsening edema; elevated troponin; chest pain Source of Information: patient, family, old records History of Present Illness: Patient is an 85-year-old male presents complaining of dyspnea, left-sided chest pain, headache. Dyspnea onset yesterday. Left Sided chest pain is mild, pressure sensation, no exacerbating or alleviating factors. Headache is bitemporal and frontal currently severe, no exacerbating or alleviating factors. Headache onset at approximately 8 AM this morning. Patient is on anticoagulant therapy. Also with worsening bilateral LE edema. Allergies/Medications Allergies: Coded Allergies: NSAIDS (Non-Steroidal Anti-Inflamma (Intermediate, POOR kidney functions, avoid NSAIDs! 07/16/16) Home Med List: Allopurinol 100 MG TABLET 1 TAB PO DAILY GOUT Apixaban (Eliquis) 2.5 MG TABLET 1 TAB PO BID BLOOD THINNER (Reported) Aspirin (Ecotrin*) 81 MG TABLET. 81 MG PO DAILY Heart health Atorvastatin Calcium (Lipitor) 80 MG TABLET 1 TAB PO DAILY High cholesterol Budesonide/Formoterol Fumarate (Symbicort 160-4.5 Mcg Inhaler) 160 MCG-4.5 MCG/ ACTUATION HFA.AER.AD 2 PUF INH BID BREATHING PROBLEMS (Reported) Carvedilol (Coreg) 6.25 MG TABLET 18.75 MG PO BID heart rate Cyanocobalamin/FA/Pyridoxine (Folbic Tablet) 1 EACH TABLET 1 TAB PO DAILY SUPPLEMENT (Reported) Digoxin (Lanoxin) 125 MCG TABLET 0.125 MG PO Wed Heart rate control Esomeprazole (Nexium) 40 MG CAPSULE.DR 1 CAP PO BID GI (Reported) Furosemide (Lasix) 40 MG TABLET 1 TAB PO DAILY CHF Levothyroxine Sodium 25 MCG TABLET 1 TAB PO DAILY AC THYROID Oxycodone HCl/Acetaminophen (Percocet 5-325 MG Tablet) 5 MG-325 MG TABLET 1-2 TAB PO Q4-6 PRN PAIN (Reported) Polyethylene Glycol 3350 (Clearlax) 17 GRAM/DOSE POWDER 1 CAP PO DAILY GI ( Reported) Prednisone 5 MG TABLET 1 TAB PO QAM GOUT (Reported) Sennosides/Docusate Sodium (Senna S Tablet) 8.6 MG-50 MG TABLET 2 TAB PO QPM CONSTIPATION (Reported) Current Medications: Current Medications Sig/Jaswinder Start time Last Medication Dose Route Stop Time Status Admin Acetaminophen 0 .STK-MED ONE 07/16 1113 DC IV Acetaminophen 1,000 MG ONCE ONE 07/16 1100 DC 07/16 N/A 1 UNIT IV 07/16 1114 1143 Furosemide 0 .STK-MED ONE 07/16 1113 DC IV Furosemide 40 MG ONCE ONE 07/16 1100 DC 07/16 IV 07/16 1101 1143 Past History Travel History Traveled to [place] past 21 day No Medical History Neurological: STROKE EENT: cataracts Cardiovascular: AFIB, CHF, hypertension, hyperlipidemia, myocardial infarction Respiratory: NONE Gastrointestinal: GERD Hepatic: NONE Renal: ? 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 SISTER (CAD). Psychosocial History Services at Home: None ETOH Use: denies use Illicit Drug Use: denies illicit drug use Functional Ability ADLs Independent: dressing, eating, toileting, bathing. Ambulation: independent, walker, non-ambulatory IADLs Independent: shopping, housework, finances, food prep, telephone, transportation , medication admin. Exam & Diagnostic Data Vital Signs and I&O Vital Signs Date Time Temp Pulse Resp B/P Pulse O2 O2 Flow FiO2 Ox Delivery Rate 07/16 1446 96.8 68 20 106/53 95 Room Air Room Air 07/16 1310 97.8 72 22 99/52 Nasal 1.0L Cannula 07/16 1143 99.8 07/16 1143 97 Nasal 1.0L Cannula 07/16 1048 99.8 78 24 124/58 100 Nasal 2.0L Cannula Intake & Output 07/16 1600 07/16 0800 07/16 0000 07/15 1600 07/15 0800 07/15 0000 Intake Total Output Total 250 Balance -250 Output, Urine 250 Patient 188 lb Weight Physical Exam: General Appearance: alert, awake Head: atraumatic, normal appearance Eyes: Bilateral: normal appearance, PERRL, EOMI. Ears, Nose, Throat: normal pharynx, normal ENT inspection, hearing grossly normal Neck: normal inspection, supple, full range of motion, JVP normal, Carotids normal Respiratory: chest non-tender, diminished lung sounds left lung base Cardiovascular: regular rate/rhythm, murmur unchanged Gastrointestinal: soft, non-tender Extremities: 3+ bilateral lower extremity edema Neurologic/Psych: awake, alert, oriented x 3, entry processor II-XII nml as tested Skin: warm/dry Lymphatic: no anterior cervical angelita Labs/Pro Results: Laboratory Tests 07/16 07/16 1354 1130 Chemistry Sodium (137 - 145 mmol/L) 139 Potassium (3.5 - 5.1 mmol/L) 3.9 Chloride (98 - 107 mmol/L) 100 Carbon Dioxide (22 - 30 mmol/L) 29 Anion Gap (5 - 16) 10 BUN (9 - 20 mg/dL) 46 H Creatinine (0.7 - 1.2 mg/dL) 1.7 H Estimated GFR (>60 ml/min) 39 L BUN/Creatinine Ratio (7 - 25 %) 27.1 H Glucose (65 - 99 mg/dL) 183 H Lactic Acid (0.7 - 2.1 mmol/L) Cancelled 1.9 Calcium (8.4 - 10.2 mg/dL) 9.4 Total Bilirubin (0.2 - 1.3 mg/dL) 1.6 H AST (17 - 59 U/L) 52 ALT (21 - 72 U/L) 57 Alkaline Phosphatase (< 127 U/L) 123 Troponin I (<0.11 ng/ml) 0.19 *H [id number] Pept (<125 pg/mL) 7000 H Total Protein (6.3 - 8.2 g/dL) 6.2 L Albumin (3.5 - 5.0 g/dL) 3.0 L Globulin (1.9 - 4.2 gm/dL) 3.2 Albumin/Globulin Ratio (1.1 - 2.2 %) 0.9 L Hematology CBC w Diff MAN DIFF ORDERED WBC (4.8 - 10.8 /CUMM) 13.0 H RBC (4.70 - 6.10 /CUMM) 3.18 L Hgb (14.0 - 18.0 G/DL) 9.7 L Hct (42 - 52 %) 29.6 L MCV (80.0 - 94.0 FL) 93.1 MCH (27.0 - 31.0 PG) 30.5 RDW (11.5 - 14.5 %) 15.8 H Plt Count (130 - 400 /CUMM) 197 MPV (7.4 - 10.4 FL) 9.3 Gran % (42.2 - 75.2 %) 88.3 H Lymphocytes % (20.5 - 51.1 %) 4.9 L Monocytes % (1.7 - 9.3 %) 6.4 Eosinophils % (0 - 5 %) 0.1 Basophils % (0.0 - 2.0 %) 0.3 Absolute Granulocytes (1.4 - 6.5 /CUMM) 11.5 H Absolute Lymphocytes (1.2 - 3.4 /CUMM) 0.6 L Absolute Monocytes (0.10 - 0.60 /CUMM) 0.8 H Absolute Eosinophils (0.0 - 0.7 /CUMM) 0 Absolute Basophils (0.0 - 0.2 /CUMM) 0 Platelet Estimate (ADEQUATE) VERIFIED BY SMEAR Anisocytosis 1+ PUBS MCHC (33.0 - 37.0 G/DL) 32.8 L Assessment/Plan Assessment/Plan Assessment: 1. Chest discomfort with minimally elevated troponin 2. Cardiomyopathy with ejection fraction of 45-50% 3. Worsening LE edema 4. Chronic renal insufficiency 5. CAD - last Cath in 2014 showed patent LCFx stent and occluded PLLV branch filling via left to right collaterals. 6. Anemia Recommendations: - Serial troponin until decreasing. - Serial ECGs - Limited followup echo to reassess LV function. - Recent bilateral LE venous doppler was negative. I see no reason to repeat at the present time - Leg elevation with JAM wraps and IV lasix BID with close monitoring of Labs. - In view of multiple recent episodes of chest discomfort and minimally elevated troponin, consideration for repeat cardiac catheterization to reassess coronary anatomy. - Upon discharge, the patient will need to be re enrolled in the [facility] clinic. - When edema improved, patient to be fitted for support stockings - Consideration for outpatient evaluation by vascular surgery for venous closure procedure. Consult Acknowledgment - Thank you for your consult request. - Thank you for your consult request.
--- NOTE | 2016-07-16 16:44 | NUR ---
SECOND TROP DRAWN AND SENT TO LAB
--- NOTE | 2016-07-16 17:30 | NUR ---
PT ASSISTED TO CHAIR
--- NOTE | 2016-07-16 18:15 | NUR ---
CRITICAL TEST RESULTS [id number] HESHAM CARLOS T SR 85 M TESTS AND RESULTS: TROPONIN 0.18 Results received and read back by: DAVY THAYER Results received date and time: 07/16/161815 The following provider was notified of the results, and read the results back: VEE ORDONEZ Notified date and time: 07/16/16 at 1814
--- NOTE | 2016-07-16 18:35 | NUR ---
DINNER TRAY ORDERED: TURKEY MEATLOAF PER PT REQUEST.
--- NOTE | 2016-07-16 19:13 | NUR ---
PT AMBULATED TO BATHROOM WITH ASSIST OF ONE AND CANE WITH STEADY GAIT. PT REPORTS THAT THERE WAS BRIGHT RED BLOOD DROPS IN TOILET AFTER MOVING BOWLS, STOOL/URINE NOT ASSESSED. DENIES DARK STOOLS, DENIES PAIN.
--- NOTE | 2016-07-16 19:21 | NUR ---
PT A/O X3. RESP UNLBAORED. PT DENIES CP. PT SITTING IN CHAIR. PT ATE DINNER. PT APPEARS COMFORTABLE. FAMILY AT BEDSIDE.
--- NOTE | 2016-07-16 20:25 | NUR ---
ORI AT BEDSIDE
--- NOTE | 2016-07-16 20:44 | NUR ---
PT TO ROOM 183 BED 1
[2016-07-16] MEDS ORDERED: PERCOCET 5-3251 EACH PO (21:18)
--- NOTE | 2016-07-16 21:21 | History & Physical ---
UZMA CARRERA,[facility] 07/16/160: General Information and HPI Source of Information: patient, family, old records History of Present Illness: This is a 85-year-old gentleman with a significant cardiac history including CAD status post CABG in 2002, A. fib on apixaban, CHF with EF of 45-50% status post defibrillator/pacemaker, hyperlipidemia, hypertension, is sent in by his monogram technician (Dr. Vidales) for evaluation of chest pain. Patient reports that today around 8 AM while in his normal state of health and watching TV while seated on his recliner, he experienced sudden onset of left- sided chest pain. Patient describes this pain as mild pressure and only localized on the left side around his defibrillator site, and was non radiating. Pt reports having had similar episodes of chest pain before, but states that this episode was actually less intense compared to previous ones. Patient denies any exacerbating or alleviating factors affecting his chest pain. Associated symptoms included shortness of breath, nausea but no vomiting, and a headache. He reports that his chest pain was transient, however his headaches was still persistent. Patient denied diaphoresis or numbness of his arms. Patient denies any recent chest trauma, firing of his defibrillator, pleuritic pain, heartburn, recent upper respiratory infection/cough, or starting any new medication. However, patient is endorsing increased physical activities in the past 3 days due to his schedule physical therapy sessions. Patient reports increased lower extremity swelling from his baseline and states that he is working on getting a recliner for sleep. Patient also denies any vision changes, dizziness, fever/chills, focal neurological deficits, abdominal pain, musculoskeletal pain, or dysuria. Allergies/Medications Allergies: Coded Allergies: NSAIDS (Non-Steroidal Anti-Inflamma (Intermediate, POOR kidney functions, avoid NSAIDs! 07/16/16) Home Med list Allopurinol 100 MG TABLET 1 TAB PO DAILY GOUT Apixaban (Eliquis) 2.5 MG TABLET 1 TAB PO BID BLOOD THINNER (Reported) Aspirin (Ecotrin*) 81 MG TABLET. 81 MG PO DAILY Heart health Atorvastatin Calcium (Lipitor) 80 MG TABLET 1 TAB PO DAILY High cholesterol Budesonide/Formoterol Fumarate (Symbicort 160-4.5 Mcg Inhaler) 160 MCG-4.5 MCG/ ACTUATION HFA.AER.AD 2 PUF INH BID BREATHING PROBLEMS (Reported) Carvedilol (Coreg) 6.25 MG TABLET 18.75 MG PO BID heart rate Cyanocobalamin/FA/Pyridoxine (Folbic Tablet) 1 EACH TABLET 1 TAB PO DAILY SUPPLEMENT (Reported) Digoxin (Lanoxin) 125 MCG TABLET 0.125 MG PO SAT Heart rate control Esomeprazole (Nexium) 40 MG CAPSULE.DR 1 CAP PO BID GI (Reported) Furosemide (Lasix) 40 MG TABLET 1 TAB PO DAILY CHF Levothyroxine Sodium 25 MCG TABLET 1 TAB PO DAILY AC THYROID Oxycodone HCl/Acetaminophen (Percocet 5-325 MG Tablet) 5 MG-325 MG TABLET 1-2 TAB PO Q4-6 PRN PAIN (Reported) Polyethylene Glycol 3350 (Clearlax) 17 GRAM/DOSE POWDER 1 CAP PO DAILY GI ( Reported) Prednisone 5 MG TABLET 1 TAB PO QAM GOUT (Reported) Sennosides/Docusate Sodium (Senna S Tablet) 8.6 MG-50 MG TABLET 2 TAB PO QPM CONSTIPATION (Reported) Past History Travel History Traveled to [place] past 21 day No Medical History Neurological: STROKE EENT: cataracts Cardiovascular: AFIB, CHF, hypertension, hyperlipidemia, myocardial infarction Respiratory: NONE Gastrointestinal: GERD Hepatic: NONE Renal: ? 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 SISTER (CAD). Psychosocial History Services at Home: None ETOH Use: denies use Illicit Drug Use: denies illicit drug use Functional Ability ADLs Independent: dressing, eating, toileting, bathing. Ambulation: independent, walker, non-ambulatory IADLs Independent: shopping, housework, finances, food prep, telephone, transportation , medication admin. Review of Systems Review of Systems Constitutional: Reports: see HPI. Exam & Diagnostic Data Last 24 Hrs of Vital Signs/I&O Vital Signs Date Time Temp Pulse Resp B/P Pulse O2 O2 Flow FiO2 Ox Delivery Rate 07/16 2220 93 Room Air 07/16 2215 98.7 85 18 136/58 93 Room Air 07/16 2143 97.5 83 20 143/69 95 07/16 2036 97.1 84 16 137/61 95 Room Air 07/16 1745 97.4 75 17 120/55 95 Room Air Room Air 07/16 1446 96.8 68 20 106/53 95 Room Air Room Air 07/16 1310 97.8 72 22 99/52 Nasal 1.0L Cannula 07/16 1143 99.8 07/16 1143 97 Nasal 1.0L Cannula 07/16 1048 99.8 78 24 124/58 100 Nasal 2.0L Cannula Intake & Output 07/16 1600 07/16 0800 07/16 0000 Intake Total 120 Output Total 400 Balance -280 Intake, Oral 120 Output, Urine 400 Patient 85.275 kg Weight Physical Exam General Appearance Alert, Oriented X3, Cooperative Skin No Significant Lesion HEENT Atraumatic, PERRLA, Mucous Membr. moist/pink Neck Supple, No JVD, No thryomegaly, +2 Carotid Pulse wo Bruit Lymphatic Cervical nl Cardiovascular Regular Rate, Normal S1, Normal S2 Lungs b/l crackles prominent at the bases Abdomen Normal Bowel Sounds, Soft, No Tenderness Neurological Normal Speech, Sensation Intact Extremities No Clubbing, No Cyanosis, pitting edema +3 below the knees Vascular Pulses Symmetrical Assessment/Plan Assessment: This is a 85-year-old gentleman with a significant headache history including CABG in 2002 due to CAD, Cath in 2014, ischemic cardiomyopathy with an ejection fraction of 45-50%, and hyperlipidemia, hypertension sense for evaluation of chest pain associated with shortness of breath and headache. At the ED, vital signs unremarkable. Physical examination was positive for basilar crackles and 3+ pitting edema. Initial troponin was elevated with a level 0.19 and subsequent one obtain about 5 hours later showing a decline 0.18. ProBNP was also elevated with a level of 7000. Assessment and plan #Chest pain with elevated troponins Episode was transient with initial troponin found to be mildly elevated and the second one downtrending with EKG not showing any acute ST ischemic changes. Most likely secondary to demand ischemia. However, patient's extensive cardiac history including bypass and stent placement is always a concern with consideration for possible cath. Plan Will admit to telemetry for close monitoring We'll continue to trend troponins and EKG Continue aspirin 81 mg daily Continue carvedilol 18.75 mg twice a day #Acute exacerbation of CHF As evident by elevated proBNP, increased lower extremity edema, dyspnea, and chest x-ray suggestive of congestion. Plan IV furosemide 20 mg twice a day Continue digoxin 0.125 mg every Wednesday and Wednesday Will obtain dig levels #History of CAD Continue aspirin, atorvastatin, and carvedilol #History of hypothyroidism Continue levothyroxine 0.025mg #History of gout continue allopurinol 100 mg daily As Ranked By This Provider Problem List: 1. Chest pain Core Measures/Miscellaneous Acute Coronary Syndrome ACS Diagnosis: No Cerebrovascular Accident CVA/TIA Diagnosis: No Congestive Heart Failure CHF Diagnosis: No Venous Thromboembolism VTE Risk Factors: Age > 40 No [facility] VTE prophylaxis d/t: No contraindications No VTE Pharm Prophylaxis d/t: No contraindications VTE Diagnosis: No VTE Type: NONE VTE Confirmed by (Test): NONE Severe Sepsis Severe Sepsis Present: No Septic Shock Septic Shock Present: No Miscellaneous Documentation Attending Case Discussed With: ZACHARY CARRERA,MELITON Primary Care Physician: DOUGLAS PLASENCIA MD Patient sees these Specialists cardiology Level of Patient Care: General Medicine ALBAN CARRERA,[facility] 07/16/16 3117: Resident Review Statement Resident Statement: examined this patient, discussed with internet marketer, agreed with internet marketer, discussed with family Other Findings: 85 y/o M with extensive cardiac history, well known to Dr. Vidales, recently discharged from [facility] on 07/10 for TIA and Chest pain 2/2 demand ischemia, presents to the ED with complaints of chest pain and headache since 8 AM. He was asked to come to the ED by Dr. Vidales, who he had called. Chest pain is similar to his previous episodes, but lesser in intensity. Headache was sudden and not associated with changes in vision or dizziness or vomiting. He endorses increased physical activity, since PT has started working with him over the last 3 days. Vitals: Stable Physical Exam: Crackles heard at the base of lungs bilaterally. Pedal Edema 3+ extending upto the knee. Problem List: Chest Pain with elevated troponin, r/O ACS Shortness of breath with H/O HFrEF and currently elevated ProBNP Afib on Eliquis CKD Hypothyroidism HLD HTN CAD s/p CABG in 2015 S/P Dual Chamber PM and Defibrillator Plan: - Admit to telemetry - Trend troponins and EKG till they peak - IV Lasix 20 mg BID, with daily weights and strict I/O - Limited ECHO - Continue other home medications. - Cardio consult - DVT PPX: Eliquis BID - Pain Pathway: Home Percocet 5/325 Q4-6P - Code Status: Full Code BOBBI BARROSO 07/17/16 0446: Attending MD Review Statement Attending Statement Attending MD Statement: examined this patient, discuss w/resident/PA/FRUIT GRADER OPERATOR, agreed w/resident/PA/FRUIT GRADER OPERATOR, reviewed EMR data (avail), reviewed images, amended to note Attending Assessment/Plan: CC: SOB, CP PMHx: HFrEF (EF 35% ON nuclear imaging in 2014) s/p dual-chamber pacemaker , CAD S/P CABG, stents, COPD, A. 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 Patient has been having on and off shortness of breath relieved with albuterol and chronic cough. But today just been started while watching television, central, pressure- like, nonradiating, 4/10 in intensity, patient tried to call home health nurse about this but could not get in touch so came to ER. Chest pain is associated with shortness of breath, nausea, headache. Headache was very severe and was not relieving. Patient denies worsening of cough, expectoration, fever, chills, nausea, vomiting, diarrhea, constipation, LOC, palpitations. Chest pain shortness of breath resolved after Lasix injection in ER in 20-30 minutes. Vitals: Tmax 99.8, HR 70s to 80s, tachypneic at presentation a 24 decreased to 18, BP O2 saturation in acceptable range. On examination: A O 3, no acute distress, no JVD, no lymphadenopathy, mucosa moist, neck supple, no focal neurological deficit, +3 pitting edema bilateral lower extremities. CVS: Irregular, no murmurs. RS: Bibasilar fine crackles. Abdomen: Obese, soft, and to , bowel sounds present. Labs: WBC 13.0, hemoglobin 9.7, creatinine 1.7 decreased from 2.2, troponin 0.19 trended down to 0.18. ProBNP [address] head: No acute intracranial pathology. CXR: Slightly worsened vascular congestion compared to prior examination. Suspect small right pleural effusion. A and P #1 acute on chronic heart failure: With decreased ejection fraction, continue IV Lasix 20 mg twice a day, monitor I's and O's, continue carvedilol at home doses, patient currently not on ACEI. Appreciate cardiology input, limited 2-D echo today call tomorrow. Watch for for creatinine with respect to recent history of MADONNA on CKD with diuresis. #2 chest pain: Transient, relieved after Lasix, elevated troponin, EKG changes difficult to appreciate in setting of paced rhythm, troponin trending down. Probably demand ischemia secondary to volume overload and heart failure, patient has extensive cardiac history as well, will follow cardiology lead for further workup. Continue aspirin, atorvastatin #3 headache : CT head negative, no focal neurological deficits, headache resolved. #4 chronic stable conditions A. fib, HLD, hypothyroidism, gout: Continue digoxin , Apxaban, levothyroxin, allopurinol, PPI, stool softener. Adequate pain control.
--- NOTE | 2016-07-16 21:42 | NUR ---
PT SITTING IN CHAIR. PT UNCOMFORTBALE BUT DOES NOT WANT TO GET INTO CHAIR, PT DENIES CP. NO APPARENT DISTRESS. WILL CONTINUE TO MONITOR
[2016-07-16 22:15] VITALS: BP 136/58
[2016-07-17 07:56] LABS: ABSOLUTE BASOPHIL COUNT 0 /CUMM (0.0-0.2); ABSOLUTE EOSINOPHIL COUNT 0 /CUMM (0.0-0.7); ABSOLUTE GRANULOCYTE CT 10.8 /CUMM (1.4-6.5); ABSOLUTE LYMPH COUNT 0.8 /CUMM (1.2-3.4); ABSOLUTE MONOCYTE COUNT 0.9 /CUMM (0.10-0.60); BASOPHIL % 0.3 % (0.0-2.0); EOSINOPHIL % 0.3 % (0-5); GRANULOCYTE % 86.2 % (42.2-75.2); HEMATOCRIT 28.6 % (42-52); MEAN CORPUSCULAR HGB 30.3 PG (27.0-31.0); MEAN CORPUSCULAR HGB CONC 32.5 G/DL (33.0-37.0); MEAN CORPUSCULAR VOLUME 93.5 FL (80.0-94.0); MEAN PLATELET VOLUME 9.3 FL (7.4-10.4); PLATELET COUNT 180 /CUMM (130-400); RED BLOOD CELL CT 3.06 /CUMM (4.70-6.10); WHITE BLOOD CELL COUNT 12.5 /CUMM (4.8-10.8)
[2016-07-17 07:58] VITALS: BP 129/54
--- NOTE | 2016-07-17 08:55 | NUR ---
WOUND CARE: REQUESTED BY NURSING STAFF TO EVALUATE PT FOR SKIN ATLERATIONS PRESENT ON ADMISSION - PT KNOWN TO THIS ORTHOPAEDIC SURGEON FROM RECENT ADMISSION - PT HAS HAD CHRONIC BREAKDOWN TO THE HEELS AND IS TREATED BY DR LUTZ IN THE COMMUNITY - RIGHT HEEL DTI 4X5 CM DARK BROWN/PURPLE FLUSH DISCOLORATION - LEFT HEEL 3X3 CM AREA OF DTI BROWN FLUSH BOGGY DISCOLORED AREA INTACT SKIN - NO DRNG - LEFT BUTTOCKS 3 X 2 CM SUPERFICIAL DENUDED AREA - SLIGHT DISCOMFORT RECOMMENDATION: AVOID MOISTURE TO HEELS PLEASE - PAINT MAMADOU HEELS WTIH BATADINE TWICE DAILY - OFFLOAD HEELS 100% - OBTAIN SIZE LAWRENCE MATTRESS - APPLY MOISTURE BARRIER TO BUTTOCKS QS AND PRN - ENCOURAGE SIDELYING POSITION - IF FAILURE TO IMPROVE, PODIATRY CONSULT
--- NOTE | 2016-07-17 09:37 | PN- Housestaff ---
ABDIAS CARRERA,LEELA 07/17/16 0936: Subjective Follow-up For: Follow-up with chest pain with elevated troponin and bilateral lower extremity edema, probably secondary to cardiomyopathy Complaints: difficulty in the breathing Tele-Events Since Last Visit: During the day. Patient had episodes of V. tach, all beats are paced with heart rate between 73-93 with PVC Subjective: Patient is seen and examined at the bedside. He was complaining of shortness of breath after bouts of cough. He was saturating 92% without oxygen. We started him on low oxygen with nasal cannula. Denies of any nausea, vomiting, chest pain , abdominal pain, diarrhea, constipation. Review of Systems Constitutional: Denies: malaise, weakness. Cardiovascular: Reports: chest pain, edema, orthopena, palpitations, peripheral edema. Respiratory: Reports: cough, orthopnea, short of breath, sputum production. Gastrointestinal: Reports: distention. Denies: abdominal pain, bloating, constipation, diarrhea. Genitourinary: Denies: discharge, dysuria, frequency, hematuria, hesitation. Musculoskeletal: Denies: back pain, gout, joint pain, joint swelling, muscle pain, muscle stiffness. Skin: Denies: no symptoms. Neurological/Psychological: Denies: no symptoms. Objective Last 24 Hrs of Vital Signs/I&O Vital Signs Date Time Temp Pulse Resp B/P Pulse O2 O2 Flow FiO2 Ox Delivery Rate 07/17 1611 98.8 70 16 136/53 98 Nasal 2.0L Cannula 07/17 1600 Nasal 2.0L Cannula 07/17 1035 Nasal 2.0L Cannula 07/17 1034 97 Nasal 2.0L Cannula 07/17 0937 77 129/54 07/17 0800 92 Nasal 2.0L Cannula 07/17 0758 98.4 77 18 129/54 92 Room Air 07/17 0049 85 136/58 07/16 2220 93 Room Air 07/16 2215 98.7 85 18 136/58 93 Room Air 07/16 2143 97.5 83 20 143/69 95 07/16 2036 97.1 84 16 137/61 95 Room Air Intake & Output 07/17 1600 07/17 0800 07/17 0000 Intake Total 240 100 10 Output Total 300 250 0 Balance -60 -150 10 Intake, IV 10 Intake, Oral 240 100 0 Number 0 Bowel Movements Output, Urine 300 250 0 Patient 82.554 kg 85.275 kg Weight Physical Exam General Appearance: Alert, Oriented X3, Cooperative, Mild Distress Skin: No Rashes, No Breakdown Cardiovascular: irregular with murmur Lungs: bilateral decreased air entry with crepts Abdomen: Soft, No Tenderness, distended Neurological: Normal Speech Extremities: bilateral pitting edema Vascular: Normal Pulses, Pulses Symmetrical Current Medications: Current Medications Sig/Jaswinder Start time Last Medication Dose Route Stop Time Status Admin Albuterol Sulfate 3 ML BID 07/17 1021 AC 07/17 INH 1022 Allopurinol 100 MG DAILY 07/17 1000 AC 07/17 PO 0938 Apixaban 2.5 MG BID 07/16 2200 AC 07/17 PO 0938 Aspirin Buffered 81 MG DAILY 07/17 1000 AC 07/17 PO 0937 Atorvastatin Calcium 80 MG 1700 07/17 1700 AC 07/17 PO 1701 Carvedilol 18.75 MG BID 07/16 2200 AC 07/17 PO 0937 Digoxin 0.125 MG TUES THURS SAT 07/18 1000 AC PO Furosemide 20 MG 0800 & 1700 07/17 0800 AC 07/17 IV 1701 Heparin Sodium 5,000 UNIT Q8 07/16 2200 CAN (Porcine) SC Levothyroxine Sodium 0.025 MG DAILY AC 07/17 0700 AC 07/17 PO 0717 Omeprazole 40 MG BID 07/16 2200 AC 07/17 PO 0938 Polyethylene Glycol 17 GM DAILY 07/17 1000 AC PO Prednisone 5 MG DAILY 07/17 1000 AC 07/17 PO 0938 Senna/Docusate Sodium 2 TAB QPM 07/16 2200 AC PO Last 24 Hrs of Lab/Pro Results Last 24 Hrs of Labs/Mics: Laboratory Tests 07/17/16 1810: Troponin I Pending 07/17/16 1349: Troponin I 0.16 *H 07/17/16 0630: Troponin I Cancelled 07/17/16 0630: Anion Gap 14, Estimated GFR 30 L, BUN/Creatinine Ratio 23.8, Troponin I 0.21 *H , CBC w Diff NO MAN DIFF REQ, RBC 3.06 L, MCV 93.5, MCH 30.3, RDW 16.0 H, MPV 9.3, Gran % 86.2 H, Lymphocytes % 6.3 L, Monocytes % 6.9, Eosinophils % 0.3, Basophils % 0.3, Absolute Granulocytes 10.8 H, Absolute Lymphocytes 0.8 L, Absolute Monocytes 0.9 H, Absolute Eosinophils 0, Absolute Basophils 0, PUBS MCHC 32.5 L 07/16/16 2350: Troponin I 0.18 *H Assessment/Plan Assessment: Patient is an 84-year-old male with significant past medical history of hypertension, hyperlipidemia, coronary artery disease, status post CABG(2002), LCX stent (2014), atrial fibrillation on Apixaban, CHF with ejection fraction of 45-50%, cardiomyopathy, s/p ICD, bilateral lower extremity edema, recurrent chest pain sent in by his echo vascular tech, Dr. Vidales for evaluation of chest pain. Vital signs-temperature 98.9, pulse 70, respiratory rate 16, blood pressure 136/ 53, SPO2 98%, intake/output-130/400 Plan- Bilaterally, worsening pedal edema, recurrent chest pain, elevated troponin- probably cardiomyopathy with demand ischemia, need evaluation- * Discuss with Dr. Vidales patient is having elevated troponin secondary to demand ischemia. He is having recurrent admission secondary to shortness of breath and fluid retention in the legs. He may need elective cardiac catheterization. * He advised to keep the patient nothing by mouth after midnight on Wednesday for possible cardiac catheterization, HTN, on Wednesday with Dr. Hassan. * We will also place a consult for nephrology, for impending cath * We'll continue leg elevation, with Daniel wrap * We will continue patient on IV Lasix 20mg BID and adjust the dose according to patient, creatinine and intake output * We will continue to monitor troponins, untill it will trended down * Strict intake output charting Episodes of ventricular tachycardia * Patient had an episode of ventricular tachycardia in the afternoon, 7 beats in a row. * Discussed with according to him, patient is having ICD and beta azeem, that will help. * We'll continue telemetry monitoring Acute on chronic renal disease * Creatinine is 2.1 * We'll regularly monitor it. * We will adjust the dose according to the creatinine was Anemia of chronic disease * Hb -9.3 * We'll watch for the signs of bleeding as the patient on Eliquis Diet-heart healthy diet with fluid restriction DVT prophylaxis-ALP S CODE STATUS-full code Problem List: 1. CHF exacerbation 2. Atrial fibrillation 3. CKD (chronic kidney disease) 4. Coronary artery disease 5. Volume overload 6. Bilateral leg edema Pain Ratin Pain Location: Left chest Pain Goal: Remain pain free Pain Plan: Angiography on Wednesday Tomorrow's Labs & Rationales: BEP, magnesium DVT/Prophylaxis: mechanical, pharmacological MAURICIO ARRIOLA MD 07/17/16 1036: Attending MD Review Statement Attending Statement Attending MD Statement: examined this patient, discuss w/resident/PA/FINANCE ASSOCIATE, agreed w/resident/PA/FINANCE ASSOCIATE, reviewed EMR data (avail) Attending Assessment/Plan: 85M PMH CAD s/p multiple stents, chronic atrial fibrillation s/p AICD/PPM, systolic heart failure (HFrEF) with EF of 40%, COPD, HTN admitted with chest pain and shortness of breath in the setting of positive troponin, chronic lower extremity edema, and hypervolemia. History of TIA on prior admission. Underwent DIVINA on prior admission which was normal. Device interrogated recently. Plan - Continue on telemetry - Trend troponin to peak, repeat EKG with next troponin - Wound care consult for leg compressive wraps - Follow cardiology recommendations - Continue home medications - Continue Eliquis - Continue Lasix - Possible cardiac cath after fluid status improves
--- NOTE | 2016-07-17 10:34 | NUR ---
WOUND CARE: CALL RECEIVED FROM NURSE BURK TO CLARIFY MDS RECOMMENDATION - MDS REQUESTING COMPRESSION TO BLE FOR EDEMA CONTROL - NO WOUNDS NOTED TO BLE - NURSING STAFF MAY APPLY LIGHT COMPRESSION WITH JAM WRAP FROM BASE OF TOES TO TIBIAL TUBEROSITY BLE DAILY
[2016-07-17 16:11] VITALS: BP 136/53
--- NOTE | 2016-07-17 16:34 | NUR ---
PT HAD A 6 BEAT RUN OF VTACH @ 1420. BP WAS 110/56, HR 77, O2 SAT 98% ON 2LO2NC, TEMP 98.1, PT ASYMPTOMATIC. REPORTED TO DR. CALERO. NO FURTHER ORDERS.
--- NOTE | 2016-07-17 18:24 | PN- Cardiology ---
Subjective Subjective: Doing OK today with no further chest discomfort. LE edema somewhat better. No other new issues. Objective Vital Signs and I&Os Vital Signs Date Time Temp Pulse Resp B/P Pulse O2 O2 Flow FiO2 Ox Delivery Rate 07/17 1611 98.8 70 16 136/53 98 Nasal 2.0L Cannula 07/17 1600 Nasal 2.0L Cannula 07/17 1035 Nasal 2.0L Cannula 07/17 1034 97 Nasal 2.0L Cannula 07/17 0937 77 129/54 07/17 0800 92 Nasal 2.0L Cannula 07/17 0758 98.4 77 18 129/54 92 Room Air 07/17 0049 85 136/58 07/16 2220 93 Room Air 07/16 2215 98.7 85 18 136/58 93 Room Air 07/16 2143 97.5 83 20 143/69 95 07/16 2036 97.1 84 16 137/61 95 Room Air Intake & Output 07/17 1600 07/17 0800 07/17 0000 07/16 1600 07/16 0800 07/16 0000 Intake Total 240 100 10 120 Output Total 300 250 0 400 Balance -60 -150 10 -280 Intake, IV 10 Intake, Oral 240 100 0 120 Number 0 Bowel Movements Output, Urine 300 250 0 400 Patient 182 lb 188 lb 188 lb Weight Physical Exam: General Appearance: alert, awake Head: atraumatic, normal appearance Eyes: Bilateral: normal appearance, PERRL, EOMI. 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 Skin: warm/dry Lymphatic: no anterior cervical angelita Current Medications: Current Medications Sig/Jaswinder Start time Last Medication Dose Route Stop Time Status Admin Albuterol Sulfate 3 ML BID 07/17 1021 AC 07/17 INH 1022 Allopurinol 100 MG DAILY 07/17 1000 AC 07/17 PO 0938 Apixaban 2.5 MG BID 07/16 2200 AC 07/17 PO 0938 Aspirin 0 .STK-MED ONE 07/16 1922 DC PO Aspirin 81 MG ONCE ONE 07/16 1830 DC 07/16 PO 07/16 1831 1921 Aspirin Buffered 81 MG DAILY 07/17 1000 AC 07/17 PO 0937 Atorvastatin Calcium 80 MG 1700 07/17 1700 AC 07/17 PO 1701 Carvedilol 18.75 MG BID 07/16 2200 AC 07/17 PO 0937 Digoxin 0.125 MG TUES THURS SAT 07/18 1000 AC PO Furosemide 20 MG 0800 & 1700 07/17 0800 AC 07/17 IV 1701 Heparin Sodium 5,000 UNIT Q8 07/16 2200 CAN (Porcine) SC Levothyroxine Sodium 0.025 MG DAILY AC 07/17 0700 AC 07/17 PO 0717 Omeprazole 40 MG BID 07/16 2200 AC 07/17 PO 0938 Polyethylene Glycol 17 GM DAILY 07/17 1000 AC PO Prednisone 5 MG DAILY 07/17 1000 AC 07/17 PO 0938 Senna/Docusate Sodium 2 TAB QPM 07/16 2200 AC PO Results Last 48 Hrs of Labs/Mics: Laboratory Tests 07/17/16 1807: Troponin I Pending 07/17/16 1349: Troponin I 0.16 *H 07/17/16 0630: Troponin I Cancelled 07/17/16 0630: Anion Gap 14, Estimated GFR 30 L, BUN/Creatinine Ratio 23.8, Troponin I 0.21 *H , CBC w Diff NO MAN DIFF REQ, RBC 3.06 L, MCV 93.5, MCH 30.3, RDW 16.0 H, MPV 9.3, Gran % 86.2 H, Lymphocytes % 6.3 L, Monocytes % 6.9, Eosinophils % 0.3, Basophils % 0.3, Absolute Granulocytes 10.8 H, Absolute Lymphocytes 0.8 L, Absolute Monocytes 0.9 H, Absolute Eosinophils 0, Absolute Basophils 0, PUBS MCHC 32.5 L 07/16/16 2350: Troponin I 0.18 *H 07/16/16 1640: Troponin I 0.18 *H 07/16/16 1354: Lactic Acid Cancelled 07/16/16 1130: Anion Gap 10, Estimated GFR 39 L, BUN/Creatinine Ratio 27.1 H, Glucose 183 H, Lactic Acid 1.9, Calcium 9.4, Total Bilirubin 1.6 H, AST 52, ALT 57, Alkaline Phosphatase 123, Troponin I 0.19 *H, Gcx-H-Mvamewtekkp Pept 7000 H, Total Protein 6.2 L, Albumin 3.0 L, Globulin 3.2, Albumin/Globulin Ratio 0.9 L, CBC w Diff MAN DIFF ORDERED, RBC 3.18 L, MCV 93.1, MCH 30.5, RDW 15.8 H, MPV 9.3, Gran % 88.3 H, Lymphocytes % 4.9 L, Monocytes % 6.4, Eosinophils % 0.1, Basophils % 0.3, Absolute Granulocytes 11.5 H, Absolute Lymphocytes 0.6 L, Absolute Monocytes 0.8 H, Absolute Eosinophils 0, Absolute Basophils 0, Platelet Estimate VERIFIED BY SMEAR, Anisocytosis 1+, PUBS MCHC 32.8 L, Digoxin 0.7 L Assessment/Plan Assessment/Plan Assessment: 1. Chest discomfort with minimally elevated troponin 2. Cardiomyopathy with ejection fraction of 45-50% 3. Worsening LE edema 4. Chronic renal insufficiency 5. CAD - last Cath in 2014 showed patent LCFx stent and occluded PLLV branch filling via left to right collaterals. 6. Anemia Recommendations: - COntinue leg elevation, JAM wraps and daily lasix adjusted daily based on the patient's creatinine and I/Os. - NPO after midnite Wednesday for possible cardiac catheterization at [facility] on Wednesday with Dr. Hassan. Final decision about the timing of the cath depending on the patient's labs and clinical status. - Plan discussed in detail with the patient and his and they agree to proceed. - Nephrology input with respect to impending Cath please. Continue telemetry? Yes
--- NOTE | 2016-07-17 19:58 | ECHOCARDIOGRAM REPORT ---
HESHAM CARLOS Age: 85 : 1930 Gender: M Exam Date: 07/17/2016 11:05 Exam Location: [address] Ht (in): 66 Wt (lb): 182 BSA: 1.98 BP: 136 / 58 Ordering Physician: TARA PHOENIX MD Referring Physician: TARA PHOENIX MD Technologist: David Barriga [facility] Room Number: 183-1 Indications: Chest Pain Rhythm: Atrial fibrillation Technical Quality: Fair FINDINGS Left Ventricle Normal size left ventricle. Borderline normal left ventricular ejection fraction estimated at 50-55%. Right Ventricle Right ventricle not well visualized, grossly normal. Right Atrium Right atrium not well visualized, grossly normal. Left Atrium Left atrial dilatation. Mitral Valve Mitral valve thickened. Mild mitral annular calcification. Aortic Valve Trileaflet aortic valve. Diffuse thickening (sclerosis) of the aortic valve cusps without reduced excursion. Mild aortic regurgitation. Tricuspid Valve Tricuspid valve not well visualized, grossly normal. Mild tricuspid regurgitation. Pulmonic Valve Pulmonic valve not well visualized, grossly normal. Pericardium No pericardial effusion. Great Vessels Aortic root and proximal ascending aorta not well visualized, grossly normal. CONCLUSIONS 1. This was a limited followup examination performed to reassess LV systolic function and wall motion 2. Aortic sclerosis is present with mild aortic insuffciiency. 3. Mitral leaflet thickening is present with mild anular calcification . 4. There is no pericardial fluid detected. 5. The left ventricular chamber size is normal. THe ejection fraction is 50-55%.. A false tendon is present at the apex. 6. Left atrial enlargement is present. 7. Pacemaker wires are noted in the right heart chambers. Mild tricuspid insufficiency is present. THe RV systolic pressure was not accurately assessed. Obey Vidales M.D. (Electronically Signed) Final Date: 17 July 2016 19:58 MEASUREMENTS (Male / Female) Normal Values 2D ECHO LV Diastolic Diameter PLAX 4.9 cm 4.2 - 5.9 / 3.9 - 5.3 cm LV Systolic Diameter PLAX 3.4 cm 2.1 - 4.0 cm LV Fractional Shortening PLAX 30.6 % 25 - 46 % LV Ejection Fraction 2D Teich 58.0 % IVS Diastolic Thickness 0.9 cm LVPW Diastolic Thickness 0.9 cm LV Relative Wall Thickness 0.4 RV Internal Dim ED PLAX 2.7 cm 1.9 - 3.8 cm LV Ejection Fraction MOD BP 62.7 % >= 55 % LV Diastolic Length 4C 8.1 cm 6.9 - 10.3 cm LV Diastolic Area 4C 32.1 cm LV Diastolic Volume MOD 4C 104.0 cm LV Ejection Fraction MOD 4C 59.6 % LV Stroke Volume MOD 4C 62.0 cm LV Systolic Length 4C 7.0 cm LV Systolic Area 4C 19.0 cm LV Systolic Volume MOD 4C 42.0 cm LV Ejection Fraction MOD 2C 64.2 % LV Diastolic Volume 4C AL 108.4 cm 85 - 139 / 69 - 109 cm LV Systolic Volume 4C AL 43.7 cm LV Ejection Fraction 4C AL 59.7 % LV Stroke Volume 4C AL 64.7 cm LV Ejection Fraction 2C AL 66.4 %
[2016-07-18 00:10] VITALS: BP 128/50
[2016-07-18 08:00] VITALS: BP 120/50
--- NOTE | 2016-07-18 08:40 | PN- Housestaff ---
ANANT CARRERA,INDIRA 07/18/16 0840: Subjective Follow-up For: Chest pain with elevated troponin and bilateral lower extremity edema, probably secondary to cardiomyopathy Tele-Events Since Last Visit: single/dual HR 64-79 [place] Subjective: Patient is seen and examined at the bedside. No events reported overnight. Ovffers no new complaints. Pain in legs at about 5 out of 10 but controllable without any pain regimen. Remains afebrile and HDS, currently satting at 94% on 2.5L via NC. Denies any f/c, dyspnea, chest pain, palpitations, n/v/c/d, headache, dizziness. Review of Systems Constitutional: Reports: see HPI. Objective Last 24 Hrs of Vital Signs/I&O Vital Signs Date Time Temp Pulse Resp B/P Pulse O2 O2 Flow FiO2 Ox Delivery Rate 07/18 0853 122/58 07/18 0852 122/56 07/18 0827 94 Nasal 2.5L Cannula 07/18 0804 94 Nasal 2.0L Cannula 07/18 0800 98.1 73 20 120/50 98 Nasal 2.0L Cannula 07/18 0010 98.8 75 18 128/50 98 Nasal Cannula 07/18 0000 Nasal 2.0L Cannula 07/17 2156 76 124/52 07/17 1950 97 Nasal 2.0L Cannula 07/17 1611 98.8 70 16 136/53 98 Nasal 2.0L Cannula 07/17 1600 Nasal 2.0L Cannula 07/17 1035 Nasal 2.0L Cannula 07/17 1034 97 Nasal 2.0L Cannula 07/17 0937 77 129/54 Intake & Output 07/18 1600 07/18 0800 07/18 0000 Intake Total 250 Output Total 1200 350 Balance -1200 -100 Intake, IV 10 Intake, Oral 240 Output, Urine 1200 350 Patient 84.822 kg Weight Physical Exam General Appearance: Oriented X3, Cooperative, No Acute Distress Other Physical Findings: Skin: No Rashes, No Breakdown Cardiovascular: irregular with murmur Lungs: bilateral decreased air entry with crepts Abdomen: Soft, No Tenderness, distended Neurological: Normal Speech Extremities: bilateral pitting edema Vascular: Normal Pulses, Pulses Symmetrical Current Medications: Current Medications Sig/Jaswinder Start time Last Medication Dose Route Stop Time Status Admin Albuterol Sulfate 3 ML BID 07/17 1021 AC 07/18 INH 0825 Allopurinol 100 MG DAILY 07/17 1000 AC 07/18 PO 0853 Apixaban 2.5 MG BID 07/16 2200 AC 07/18 PO 0853 Aspirin Buffered 81 MG DAILY 07/17 1000 AC 07/18 PO 0853 Atorvastatin Calcium 80 MG 1700 07/17 1700 AC 07/17 PO 1701 Carvedilol 18.75 MG BID 07/16 2200 AC 07/18 PO 0852 Digoxin 0.125 MG TUES THURS SAT 07/18 1000 AC 07/18 PO 0853 Furosemide 20 MG 0800 & 1700 07/17 0800 AC 07/18 IV 0852 Levothyroxine Sodium 0.025 MG DAILY AC 07/17 0700 AC 07/18 PO 0632 Omeprazole 40 MG BID 07/16 2200 AC 07/18 PO 0854 Polyethylene Glycol 17 GM DAILY 07/17 1000 AC PO Prednisone 5 MG DAILY 07/17 1000 AC 07/18 PO 0853 Senna/Docusate Sodium 2 TAB QPM 07/16 2200 AC 07/17 PO 2156 Last 24 Hrs of Lab/Pro Results Last 24 Hrs of Labs/Mics: Laboratory Tests 07/18/16 0610: Anion Gap 8, Estimated GFR 36 L, BUN/Creatinine Ratio 28.3 H, Magnesium 2.1 07/17/16 1810: Troponin I 0.16 *H 07/17/16 1349: Troponin I 0.16 *H Assessment/Plan Assessment: Patient is an 84-year-old male with significant past medical history of hypertension, hyperlipidemia, coronary artery disease, status post CABG(2002), LCX stent (2014), atrial fibrillation on Apixaban, CHF with ejection fraction of 45-50%, cardiomyopathy, s/p ICD, bilateral lower extremity edema, recurrent chest pain 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 Vidales for evaluation of chest pain. Vital signs-temperature 98.9, pulse 70, respiratory rate 16, blood pressure 136/ 53, SPO2 98%, intake/output-130/400 Plan- Bilaterally, worsening pedal edema, recurrent chest pain, elevated troponin- probably cardiomyopathy with demand ischemia, need evaluation- * Discuss with Dr. Vidales patient is having elevated troponin secondary to demand ischemia. He is having recurrent admission secondary to shortness of breath and fluid retention in the legs. He may need elective cardiac catheterization. * Awaiting cardiac cath on 07/02- * Hold Eliquis after dose today for cardiac cath on 07/20 * NPO after dinner on 07/19. * [facility] nephrology recs for impending cath * Continue leg elevation, with Daniel wrap * Continue patient on IV Lasix 20mg BID * Continue to monitor troponins, untill it will trended down * Strict intake output charting Episodes of ventricular tachycardia * Discussed with according to him, patient is having ICD and beta azeem, that will help. * Continue telemetry monitoring Acute on chronic renal disease * Creatinine improved to 1.8 today * We'll regularly monitor it. * We will adjust the dose according to the creatinine was * Follow nephro recs Anemia of chronic disease * Cont to watch for the signs of bleeding as the patient on Eliquis Diet-heart healthy diet with fluid restriction DVT prophylaxis-ALPS CODE STATUS-full code Problem List: 1. Benign essential hypertension 2. CHEST PAIN 3. CONGESTIVE HEART FAILURE 4. LUNG CANCER 5. Urinary retention 6. Andre catheter problem 7. Bladder spasms 8. Dyspnea 9. Chest pain 10. Renal insufficiency 11. Hypotension 12. MADONNA (acute kidney injury) 13. Septic arthritis of knee, right 14. Gouty arthritis 15. Elevated troponin 16. Volume overload 17. Acute and chronic respiratory failure with hypoxia 18. Acute renal insufficiency 19. Coronary artery disease 20. Atrial fibrillation 21. CKD (chronic kidney disease) 22. Pneumonia 23. CHF (congestive heart failure) 24. ST segment changes on electrocardiogram 25. Chest pain syndrome 26. TIA (transient ischemic attack) 27. CHF exacerbation 28. Bilateral leg edema Pain Ratin Pain Location: Legs Pain Goal: Remain pain free Pain Plan: Angiography on Wednesday Tomorrow's Labs & Rationales: BEP, beth ALCANTARA MD,[facility] 07/18/16 1229: Attending MD Review Statement Attending Statement Attending MD Statement: examined this patient, discuss w/resident/PA/SUPERVISOR [employer]ERILE [employer]ESSING, agreed w/resident/PA/SUPERVISOR STERILE PROCESSING, discussed with family, reviewed EMR data (avail), discussed with nursing, reviewed images, amended to note Attending Assessment/Plan: 85-year-old gentleman with past medical history significant for coronary artery disease status post stents, chronic A. fib status post AICD/PPM, diastolic heart failure with ejection fraction of 40%, COPD, hypertension is being admitted on the floor with chest pain and shortness of breath. Patient was seen and examined on the bedside and does not complain of any shortness of breath. His labs noted. Given his elevated troponin the plan is to do a cath on Wednesday. His last dose of Eliquis will be on Wednesday. Keep the patient nothing by mouth from midnight on Wednesday.
--- NOTE | 2016-07-18 12:11 | Cons- Nephrology ---
General Information and HPI Consulting Request Date of Consult: 07/18/16 Requested By: ZACHARY CARRERA,MELITON Reason for Consult: CKD History of Present Illness: 85 yo male with hsitory of CKD, baseline creatinine around 2, probably due to hypertension. He was just in the hospital for CHF, creatiine elevated slightly with diuresis. Had evaluation by renal but no abnormalities found except possible low level monoclonal on SPEP but no significant abnormalities in serum light chains. Discharged with creatinine of 2.2. He was readmitted with chest pain, more edema. Creatinine on admission 1.7 but john to over 2 yesterday after diuresis, although down to 1.8 today. No NSAIDs. He may require cardiac cath early next week. SH: negative for ethanol abuse, ex-smoker FH: no kidney disease. Allergies/Medications Allergies: Coded Allergies: NSAIDS (Non-Steroidal Anti-Inflamma (Intermediate, POOR kidney functions, avoid NSAIDs! 07/16/16) Home Med List: Allopurinol 100 MG TABLET 1 TAB PO DAILY GOUT Apixaban (Eliquis) 2.5 MG TABLET 1 TAB PO BID BLOOD THINNER (Reported) Aspirin (Ecotrin*) 81 MG TABLET.DR 81 MG PO DAILY Heart health Atorvastatin Calcium (Lipitor) 80 MG TABLET 1 TAB PO DAILY High cholesterol Budesonide/Formoterol Fumarate (Symbicort 160-4.5 Mcg Inhaler) 160 MCG-4.5 MCG/ ACTUATION HFA.AER.AD 2 PUF INH BID BREATHING PROBLEMS (Reported) Carvedilol (Coreg) 6.25 MG TABLET 18.75 MG PO BID heart rate Cyanocobalamin/FA/Pyridoxine (Folbic Tablet) 1 EACH TABLET 1 TAB PO DAILY SUPPLEMENT (Reported) Digoxin (Lanoxin) 125 MCG TABLET 0.125 MG PO Wed Heart rate control Esomeprazole (Nexium) 40 MG CAPSULE.DR 1 CAP PO BID GI (Reported) Furosemide (Lasix) 40 MG TABLET 1 TAB PO DAILY CHF Levothyroxine Sodium 25 MCG TABLET 1 TAB PO DAILY AC THYROID Oxycodone HCl/Acetaminophen (Percocet 5-325 MG Tablet) 5 MG-325 MG TABLET 1-2 TAB PO Q4-6 PRN PAIN (Reported) Polyethylene Glycol 3350 (Clearlax) 17 GRAM/DOSE POWDER 1 CAP PO DAILY GI ( Reported) Prednisone 5 MG TABLET 1 TAB PO QAM GOUT (Reported) Sennosides/Docusate Sodium (Senna S Tablet) 8.6 MG-50 MG TABLET 2 TAB PO QPM CONSTIPATION (Reported) Current Medications: Current Medications Sig/Jaswinder Start time Last Medication Dose Route Stop Time Status Admin Albuterol Sulfate 3 ML BID 07/17 1021 AC 07/18 INH 0825 Allopurinol 100 MG DAILY 07/17 1000 AC 07/18 PO 0853 Apixaban 2.5 MG BID 07/16 2200 AC 07/18 PO 0853 Aspirin Buffered 81 MG DAILY 07/17 1000 AC 07/18 PO 0853 Atorvastatin Calcium 80 MG 1700 07/17 1700 AC 07/17 PO 1701 Carvedilol 18.75 MG BID 07/16 2200 AC 07/18 PO 0852 Digoxin 0.125 MG TU TH SAT 07/18 1000 AC 07/18 PO 0853 Furosemide 20 MG 0800 & 1700 07/17 0800 AC 07/18 IV 0852 Levothyroxine Sodium 0.025 MG DAILY AC 07/17 0700 AC 07/18 PO 0632 Omeprazole 40 MG BID 07/16 2200 AC 07/18 PO 0854 Polyethylene Glycol 17 GM DAILY 07/17 1000 AC PO Potassium Chloride 10 MEQ ONCE ONE 07/18 1600 AC PO 07/18 1601 Potassium Chloride 20 MEQ BID 07/18 1109 AC PO 07/18 2201 Prednisone 5 MG DAILY 07/17 1000 AC 07/18 PO 0853 Senna/Docusate Sodium 2 TAB QPM 07/16 2200 AC 07/17 PO 2156 Review of Systems Review of Systems: Negative except as noted above. Past History Travel History Traveled to [place] past 21 day No Medical History Blood Transfusion Hx: Yes Neurological: STROKE EENT: cataracts Cardiovascular: AFIB, CHF, hypertension, hyperlipidemia, myocardial infarction, mutiple stents. 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 SISTER (CAD). Psychosocial History Services at Home: None Smoking Status: Former Smoker ETOH Use: denies use Illicit Drug Use: denies illicit drug use Functional Ability ADLs Independent: dressing, eating, toileting, bathing. Ambulation: independent, walker, non-ambulatory IADLs Independent: shopping, housework, finances, food prep, telephone, transportation , medication admin. Exam & Diagnostic Data Vital Signs and I&O Vital Signs Date Time Temp Pulse Resp B/P Pulse O2 O2 Flow FiO2 Ox Delivery Rate 07/18 0853 122/58 07/18 0852 122/56 07/18 0827 94 Nasal 2.5L Cannula 07/18 0804 94 Nasal 2.0L Cannula 07/18 0800 98.1 73 20 120/50 98 Nasal 2.0L Cannula 07/18 0010 98.8 75 18 128/50 98 Nasal Cannula 07/18 0000 Nasal 2.0L Cannula 07/17 2156 76 124/52 07/17 1950 97 Nasal 2.0L Cannula 07/17 1611 98.8 70 16 136/53 98 Nasal 2.0L Cannula 07/17 1600 Nasal 2.0L Cannula Intake & Output 07/18 1600 07/18 0400 07/17 1600 07/17 0400 07/16 1600 07/16 0400 Intake Total 250 340 10 120 Output Total 1200 350 550 0 400 Balance -1200 -100 -210 10 -280 Intake, IV 10 10 Intake, Oral 240 340 0 120 Number 0 Bowel Movements Output, Urine 1200 350 550 0 400 Patient 187 lb 182 lb 188 lb 188 lb Weight Physical Exam: NAD VS as above Eyes: anicteric, PERRLA Neck: no mass or thryomegaly Nodes: negative cervical/inguinal SKin: no rash or induration Lungs: clear P&A CV : no rub or murmur Abd: nontender, BS positve, no organomegaly Exts: 1+ edema , absent pedal pulses. Neuro: A&O, CNI, no asterixis Results Pertinent Lab Results: Laboratory Tests 07/18 07/17 07/17 07/17 0610 1810 1349 0630 Chemistry Sodium (137 - 145 mmol/L) 139 Potassium (3.5 - 5.1 mmol/L) 3.5 Chloride (98 - 107 mmol/L) 99 Carbon Dioxide (22 - 30 mmol/L) 31 H Anion Gap (5 - 16) 8 BUN (9 - 20 mg/dL) 51 H Creatinine (0.7 - 1.2 mg/dL) 1.8 H Estimated GFR (>60 ml/min) 36 L BUN/Creatinine Ratio (7 - 25 %) 28.3 H Magnesium (1.6 - 2.3 mg/dL) 2.1 Troponin I (<0.11 ng/ml) 0.16 *H 0.16 *H Cancelled 07/17 07/16 07/16 0630 2350 1640 Chemistry Sodium (137 - 145 mmol/L) 141 Potassium (3.5 - 5.1 mmol/L) 4.0 Chloride (98 - 107 mmol/L) 101 Carbon Dioxide (22 - 30 mmol/L) 26 Anion Gap (5 - 16) 14 BUN (9 - 20 mg/dL) 50 H Creatinine (0.7 - 1.2 mg/dL) 2.1 H Estimated GFR (>60 ml/min) 30 L BUN/Creatinine Ratio (7 - 25 %) 23.8 Troponin I (<0.11 ng/ml) 0.21 *H 0.18 *H 0.18 *H Hematology CBC w Diff NO MAN DIFF REQ WBC (4.8 - 10.8 /CUMM) 12.5 H RBC (4.70 - 6.10 /CUMM) 3.06 L Hgb (14.0 - 18.0 G/DL) 9.3 L Hct (42 - 52 %) 28.6 L MCV (80.0 - 94.0 FL) 93.5 MCH (27.0 - 31.0 PG) 30.3 RDW (11.5 - 14.5 %) 16.0 H Plt Count (130 - 400 /CUMM) 180 MPV (7.4 - 10.4 FL) 9.3 Gran % (42.2 - 75.2 %) 86.2 H Lymphocytes % (20.5 - 51.1 %) 6.3 L Monocytes % (1.7 - 9.3 %) 6.9 Eosinophils % (0 - 5 %) 0.3 Basophils % (0.0 - 2.0 %) 0.3 Absolute Granulocytes (1.4 - 6.5 /CUMM) 10.8 H Absolute Lymphocytes (1.2 - 3.4 /CUMM) 0.8 L Absolute Monocytes (0.10 - 0.60 /CUMM) 0.9 H Absolute Eosinophils (0.0 - 0.7 /CUMM) 0 Absolute Basophils (0.0 - 0.2 /CUMM) 0 PUBS MCHC (33.0 - 37.0 G/DL) 32.5 L 07/16 07/16 1354 1130 Chemistry Sodium (137 - 145 mmol/L) 139 Potassium (3.5 - 5.1 mmol/L) 3.9 Chloride (98 - 107 mmol/L) 100 Carbon Dioxide (22 - 30 mmol/L) 29 Anion Gap (5 - 16) 10 BUN (9 - 20 mg/dL) 46 H Creatinine (0.7 - 1.2 mg/dL) 1.7 H Estimated GFR (>60 ml/min) 39 L BUN/Creatinine Ratio (7 - 25 %) 27.1 H Glucose (65 - 99 mg/dL) 183 H Lactic Acid (0.7 - 2.1 mmol/L) Cancelled 1.9 Calcium (8.4 - 10.2 mg/dL) 9.4 Total Bilirubin (0.2 - 1.3 mg/dL) 1.6 H AST (17 - 59 U/L) 52 ALT (21 - 72 U/L) 57 Alkaline Phosphatase (< 127 U/L) 123 Troponin I (<0.11 ng/ml) 0.19 *H Eeb-S-Wcenncdnjvl Pept (<125 pg/mL) 7000 H Total Protein (6.3 - 8.2 g/dL) 6.2 L Albumin (3.5 - 5.0 g/dL) 3.0 L Globulin (1.9 - 4.2 gm/dL) 3.2 Albumin/Globulin Ratio (1.1 - 2.2 %) 0.9 L Hematology CBC w Diff MAN DIFF ORDERED WBC (4.8 - 10.8 /CUMM) 13.0 H RBC (4.70 - 6.10 /CUMM) 3.18 L Hgb (14.0 - 18.0 G/DL) 9.7 L Hct (42 - 52 %) 29.6 L MCV (80.0 - 94.0 FL) 93.1 MCH (27.0 - 31.0 PG) 30.5 RDW (11.5 - 14.5 %) 15.8 H Plt Count (130 - 400 /CUMM) 197 MPV (7.4 - 10.4 FL) 9.3 Gran % (42.2 - 75.2 %) 88.3 H Lymphocytes % (20.5 - 51.1 %) 4.9 L Monocytes % (1.7 - 9.3 %) 6.4 Eosinophils % (0 - 5 %) 0.1 Basophils % (0.0 - 2.0 %) 0.3 Absolute Granulocytes (1.4 - 6.5 /CUMM) 11.5 H Absolute Lymphocytes (1.2 - 3.4 /CUMM) 0.6 L Absolute Monocytes (0.10 - 0.60 /CUMM) 0.8 H Absolute Eosinophils (0.0 - 0.7 /CUMM) 0 Absolute Basophils (0.0 - 0.2 /CUMM) 0 Platelet Estimate (ADEQUATE) VERIFIED BY SMEAR Anisocytosis 1+ PUBS MCHC (33.0 - 37.0 G/DL) 32.8 L Toxicology Digoxin (0.8 - 2.0 ng/mL) 0.7 L Assessment/Plan Assessment/Recommendations Assessment: CKD from hypertension, creatinine is currently at baseline. He is midly volume overloaded at this time. He is scheduled for cardiac catheterization next week and I discussed the risk of MADONNA from the procedure with the patient. Recommendations: Continue diuresis for now but would hold Lasix for 24 hours prior to catheterization. Given CHF would not volume load prior to the procedure. Use of Mucomyst is controversial but I don't think it adds any protection. Obviously need to try and minimize dye load. Follow up with Dr. Dowd as outpatient.
--- NOTE | 2016-07-18 14:55 | PN- Cardiology ---
Subjective Subjective: * No complaints of chest discomfort or shortness of breath. * AV paced rhythm in demand mode with underlying atrial fibrillation * creatinine 1.8 * troponin mildly elevated without change * WBC elevated to 12.5 Objective Vital Signs and I&Os Vital Signs Date Time Temp Pulse Resp B/P Pulse O2 O2 Flow FiO2 Ox Delivery Rate 07/18 0853 122/58 07/18 0852 122/56 07/18 0827 94 Nasal 2.5L Cannula 07/18 0804 94 Nasal 2.0L Cannula 07/18 08 98.1 73 20 120/50 98 Nasal 2.0L Cannula 07/18 0010 98.8 75 18 128/50 98 Nasal Cannula 07/18 0000 Nasal 2.0L Cannula 07/17 2156 76 124/52 07/17 1950 97 Nasal 2.0L Cannula 07/17 1611 98.8 70 16 136/53 98 Nasal 2.0L Cannula 07/17 1600 Nasal 2.0L Cannula Intake & Output 07/18 1600 07/18 0800 07/18 0000 07/17 1600 07/17 0800 07/17 0000 Intake Total 400 250 240 100 10 Output Total 650 1200 350 300 250 0 Balance -250 -1200 -100 -60 -150 10 Intake, IV 10 10 Intake, Oral 400 240 240 100 0 Number 1 0 Bowel Movements Output, Urine 650 1200 350 300 250 0 Patient 187 lb 182 lb 188 lb Weight Physical Exam: General: WD/ WN female in NAD; alert and oriented x 3 Neck: no JVD Heart: RRR with ectopy Lungs: clear bilaterally Extremities: wrapped legs bilaterally with no edema Assessment/Plan Assessment/Plan * Patient is doing well. A cardiac catheterization is planned for Wednesday. Stop Eliquis today in anticipation of this procedure. Continue Lasix today and stop tomorrow in anticipation of his cardiac catheterization. Continue telemetry? Yes
[2016-07-18 16:06] VITALS: BP 129/59
[2016-07-18 22:00] VITALS: BP 130/52
--- NOTE | 2016-07-19 06:34 | PN- Housestaff ---
ABDIAS CARRERA,LEELA 07/19/16 0634: Subjective Follow-up For: Chest pain with elevated troponin and bilateral lower extremity edema, probably secondary to cardiomyopathy, but need to be evaluated for coronary artery disease Complaints: no complaints Tele-Events Since Last Visit: Paced beats with heart rate between 62 -70 beats, 5 beats of V. tach at 2:45 a.m. and 4:00 AM and 9 beats of V. tach at 18:45 Subjective: Patient is seen and examined at the bedside. He was comfortable and sitting on the couch. He was still complaining of cough. He denies of any shortness of breath on rest but still having shortness of breath on slight exertion. Review of Systems Constitutional: Reports: weakness. Denies: no symptoms. Cardiovascular: Reports: edema, orthopena, palpitations, peripheral edema. Denies: chest pain. Respiratory: Reports: cough, orthopnea, short of breath, sputum production. Gastrointestinal: Denies: abdominal pain, bloating, constipation, diarrhea, distention, bowel incontinence. Genitourinary: Denies: dysuria, frequency, hematuria. Neurological/Psychological: Denies: no symptoms. Objective Last 24 Hrs of Vital Signs/I&O Vital Signs Date Time Temp Pulse Resp B/P Pulse O2 O2 Flow FiO2 Ox Delivery Rate 07/19 1629 97.3 68 18 112/54 93 Nasal Cannula 07/19 1623 97 07/19 1123 98 Nasal 1.0L Cannula 07/19 0904 124/58 07/19 0843 98.0 68 17 124/52 97 Nasal 1.0L Cannula 07/19 0801 94 Nasal 1.0L Cannula 07/19 0000 98 Nasal 1.0L Cannula 07/18 2200 98.2 72 18 130/52 98 Nasal 1.0L Cannula 07/18 2115 72 130/52 07/18 1950 94 Nasal 1.0L Cannula Intake & Output 07/19 1600 07/19 0800 07/19 0000 Intake Total 400 100 Output Total 650 1200 900 Balance -250 -1200 -800 Intake, Oral 400 100 Number 1 Bowel Movements Output, Urine 650 1200 900 Patient 83.007 kg Weight Physical Exam General Appearance: Alert, Oriented X3, Cooperative, No Acute Distress Skin: bilateral leg edema Cardiovascular: is irregular with murmur,ICD is placed and left upper side Lungs: bilateral decreased air entry at the bases and the crepts in the middle of the lung Abdomen: Soft, No Tenderness, distended Neurological: Normal Speech Extremities: bilateral pitting edema Vascular: both legs are wrapped in AEC wrap, so not accessed Assessment/Plan Assessment: Patient is an 84-year-old male with significant past medical history of hypertension, hyperlipidemia, coronary artery disease, status post CABG(2002), LCX stent (2014), atrial fibrillation on Apixaban, CHF with ejection fraction of 45-50%, cardiomyopathy, s/p ICD, bilateral lower extremity edema, recurrent chest pain sent in by his yeast culture developer, Dr. Vidales for evaluation of chest pain. Vital signs-temperature 98.9, pulse 70, respiratory rate 16, blood pressure 136/ 53, SPO2 98%, intake/output-130/400 Plan- Bilaterally, worsening pedal edema, recurrent chest pain, elevated troponin- probably cardiomyopathy with demand ischemia, need evaluation- * Discuss with Dr. Vidales patient is having elevated troponin secondary to demand ischemia. He is having recurrent admission secondary to shortness of breath and fluid retention in the legs. He may need elective cardiac catheterization. * Awaiting cardiac cath on 07/20 * We holded Eliquis today for cardiac cath on 07/20 * NPO after dinner on 07/19. * We will check CBC, BEP, PT, PTT tomorrow * According to skein winder, we should hold Lasix 24-hour prior to catheterization, which we did today. * Troponins trended down * Continue leg elevation, with Daniel wrap * Strict intake output charting Episodes of ventricular tachycardia * Discussed with according to him, patient is having ICD and beta azeem, that will help. * Continue telemetry monitoring Acute on chronic renal disease * Creatinine 1.9 today * We'll regularly monitor it. * Follow nephro recs Anemia of chronic disease * Cont to watch for the signs of bleeding as the patient was on Eliquis Diet-heart healthy diet with fluid restriction DVT prophylaxis-ALPS CODE STATUS-full code Problem List: 1. Bilateral leg edema 2. CHF exacerbation 3. Chest pain syndrome Pain Ratin Pain Location: legs, chest Pain Goal: Remain pain free Pain Plan: mild, avoid NSAIDs Tomorrow's Labs & Rationales: CBC, BEP, PT, PTT, MARICRUZ CARRERA,[facility] 07/19/16 1220: Attending MD Review Statement Attending Statement Attending MD Statement: examined this patient, discuss w/resident/PA/PREFORMS LAMINATOR, agreed w/resident/PA/PREFORMS LAMINATOR, discussed with family, reviewed EMR data (avail), discussed with nursing, discussed with case mgmt, reviewed images, amended to note Attending Assessment/Plan: 85-year-old gentleman with past medical history significant for coronary artery disease status post stents, chronic A. fib status post AICD/PPM, diastolic heart failure with ejection fraction of 40%, COPD, hypertension is being admitted on the floor with chest pain and shortness of breath. Patient was seen and examined on the bedside and does not complain of any shortness of breath. His labs noted. Given his elevated troponin the plan is to do a cath on Wednesday but the timings are not confirmed yet. His received his last dose of Eliquisand IV lasix on wednesday which is being stopped for the catheterization. Keep the patient nothing by mouth from midnight on Wednesday.
[2016-07-19 08:08] LABS: ABSOLUTE BASOPHIL COUNT 0 /CUMM (0.0-0.2); ABSOLUTE EOSINOPHIL COUNT 0.1 /CUMM (0.0-0.7); ABSOLUTE GRANULOCYTE CT 7.7 /CUMM (1.4-6.5); ABSOLUTE LYMPH COUNT 1.1 /CUMM (1.2-3.4); ABSOLUTE MONOCYTE COUNT 0.6 /CUMM (0.10-0.60); BASOPHIL % 0.3 % (0.0-2.0); EOSINOPHIL % 0.7 % (0-5); HEMATOCRIT 25.4 % (42-52); MEAN CORPUSCULAR HGB 30.1 PG (27.0-31.0); MEAN CORPUSCULAR HGB CONC 32.4 G/DL (33.0-37.0); MEAN CORPUSCULAR VOLUME 93.2 FL (80.0-94.0); MEAN PLATELET VOLUME 8.9 FL (7.4-10.4); PLATELET COUNT 182 /CUMM (130-400); RBC DISTRIBUTION WIDTH 16.1 % (11.5-14.5); RED BLOOD CELL CT 2.73 /CUMM (4.70-6.10); WHITE BLOOD CELL COUNT 9.4 /CUMM (4.8-10.8)
[2016-07-19 08:43] VITALS: BP 124/52
--- NOTE | 2016-07-19 15:01 | PN- Cardiology ---
Subjective Subjective: * No complaints of chest discomfort or shortness of breath. * AV paced rhythm in demand mode with underlying atrial fibrillation * creatinine 1.9 * troponin mildly elevated without change * Elevated WBC count has normalized. H/H is mildly decreased as well. Objective Vital Signs and I&Os Vital Signs Date Time Temp Pulse Resp B/P Pulse O2 O2 Flow FiO2 Ox Delivery Rate 07/19 1123 98 Nasal 1.0L Cannula 07/19 0904 124/58 07/19 0843 98.0 68 17 124/52 97 Nasal 1.0L Cannula 07/19 0801 94 Nasal 1.0L Cannula 07/19 0000 98 Nasal 1.0L Cannula 07/18 2200 98.2 72 18 130/52 98 Nasal 1.0L Cannula 07/18 2115 72 130/52 07/18 1950 94 Nasal 1.0L Cannula 07/18 1606 97 Nasal 2.0L Cannula 07/18 1606 98.8 71 18 129/59 99 Nasal 2.0L Cannula Intake & Output 07/19 1600 07/19 0800 07/19 0000 07/18 1600 07/18 0800 07/18 0000 Intake Total 400 100 400 250 Output Total 650 1200 416 238 0618 350 Balance -250 -1200 -800 -250 -1200 -100 Intake, IV 10 Intake, Oral 400 100 400 240 Number 1 1 Bowel Movements Output, Urine 650 1200 086 761 8644 350 Patient 183 lb 187 lb Weight Physical Exam: General: WD/ WN female in NAD; alert and oriented x 3 Neck: no JVD Heart: RRR with ectopy Lungs: clear bilaterally Extremities: wrapped legs bilaterally with no edema Assessment/Plan Assessment/Plan * Patient is doing well. A cardiac catheterization is planned for tomorrow. Keep NPO except for medications after midnight. No Eliquis in anticipation of this procedure. Stop Lasix due to rising creatinine in the setting of an anticipated contrast load during cardiac cathetrization. * Follow H/H which is trending down and Guaiac all stools. The fall in H/H may be dilutional which would be consistent with the WBC count also decreasing. Nevertheless, due to being on Eliquis bleeding cannot be excluded. Continue telemetry? Yes
[2016-07-19 16:29] VITALS: BP 112/54
[2016-07-19 21:40] VITALS: BP 128/50
--- NOTE | 2016-07-20 07:45 | Discharge Summary ---
Visit Information Visit Dates Admission Date: 07/16/16 Discharge Date: 07/20/2016 Hospital Course Course Attending Physician: ZACHARY CARRERA,MELITON Primary Care Physician: ERINN CARRERA,DOUGLAS Bustamante Hospital Course: Mr. Ye is an 85-year-old male with a significant cardiac history including CAD status post CABG in 2002, A. fib on apixaban, CHF with EF of 45-50% status post defibrillator/pacemaker, hyperlipidemia, hypertension who presented complaining of dyspnea, left-sided chest pain, headache. Dyspnea onset yesterday. Left Sided chest pain is mild, pressure sensation, no exacerbating or alleviating factors. Headache is bitemporal and frontal currently severe, no exacerbating or alleviating factors. Headache onset at approximately 8 AM this morning. Patient was on anticoagulant therapy with eliquis. He also complained of worsening bilateral LE edema. Vitals/Exam/Labs on admission: Vitals: Tmax 99.8, HR 70s to 80s, tachypneic at presentation a 24 decreased to 18, BP O2 saturation in acceptable range. On examination: A O 3, no acute distress, no JVD, no lymphadenopathy, mucosa moist, neck supple, no focal neurological deficit, +3 pitting edema bilateral lower extremities. CVS: Irregular, no murmurs. RS: Bibasilar fine crackles. Abdomen: Obese, soft, and to, bowel sounds present. Labs: WBC 13.0, hemoglobin 9.7, creatinine 1.7 decreased from 2.2, troponin 0.19 trended down to 0.18. ProBNP [address] head: No acute intracranial pathology. CXR: Slightly worsened vascular congestion compared to prior examination. Suspect small right pleural effusion. He was admitted to the telemetry floor for close monitoring. He had seriel troponins and EKGs. Troponin minimally decreased to 0.16, but never increased. EKG showed no changes. He was gently diuresed with 20mg of IV lasix BID for his dyspnea/edema and his labs/kidney function followed given his CKD. BUN/Cr remained in the range of low-mid 30s and high 1s, which is around his baseline. As he has had multiple similar episodes of dyspnea on exertion, with edema as well as chest pain associated with troponosis, he will require cardiac catheterization for re-evaluation of his coronary arteries. 1 night prior to the procedure, he was kept NPO, his lasix held as well as his anticoagulation. It should be noted that the patient had intermittent short runs of ventricular tachycardia, however he has an ICD. Allergies: Coded Allergies: NSAIDS (Non-Steroidal Anti-Inflamma (Intermediate, POOR kidney functions, avoid NSAIDs! 07/16/16) Significant Procedures: HESHAM YE Age: 85 : 1930 Gender: M Exam Date: 07/17/2016 11:05 Exam Location: [address] [place] [address] Ht (in): 66 Wt (lb): 182 BSA: 1.98 BP: 136 / 58 Ordering Physician: TARA PHOENIX MD Referring Physician: TARA PHOENIX MD Technologist: David Barriga FRANSISCO Room Number: 183-1 Indications: Chest Pain Rhythm: Atrial fibrillation Technical Quality: Fair FINDINGS Left Ventricle Normal size left ventricle. Borderline normal left ventricular ejection fraction estimated at 50-55%. Right Ventricle Right ventricle not well visualized, grossly normal. Right Atrium Right atrium not well visualized, grossly normal. Left Atrium Left atrial dilatation. Mitral Valve Mitral valve thickened. Mild mitral annular calcification. Aortic Valve Trileaflet aortic valve. Diffuse thickening (sclerosis) of the aortic valve cusps without reduced excursion. Mild aortic regurgitation. Tricuspid Valve Tricuspid valve not well visualized, grossly normal. Mild tricuspid regurgitation. Pulmonic Valve Pulmonic valve not well visualized, grossly normal. Pericardium No pericardial effusion. Great Vessels Aortic root and proximal ascending aorta not well visualized, grossly normal. CONCLUSIONS 1. This was a limited followup examination performed to reassess LV systolic function and wall motion 2. Aortic sclerosis is present with mild aortic insuffciiency. 3. Mitral leaflet thickening is present with mild anular calcification . 4. There is no pericardial fluid detected. 5. The left ventricular chamber size is normal. THe ejection fraction is 50-55%.. A false tendon is present at the apex. 6. Left atrial enlargement is present. 7. Pacemaker wires are noted in the right heart chambers. Mild tricuspid insufficiency is present. THe RV systolic pressure was not accurately assessed. Obey Vidales M.D. (Electronically Signed) Final Date: 17 July 2016 19:58 Disposition Summary Disposition Principal Diagnosis: Cardiomyopathy with troponosis Additional Diagnosis: CKD, anemia of chronic disease, HTN, afib Discharge Disposition: other general hospital Discharge Instructions General Discharge Information Code Status: Full Code Patient's Diet: NPO Patient's Activity: As tolerated Follow-Up Instructions/Appts: -Please follow up wtih Dr. Vidales 1 week after discharge. Please follow up with the CHF clinic and cardiac rehab. -Please follow up with Dr. Dowd in the outpatient setting after your cardiac cath for continued management of your chronic kidney disease. Medications at Discharge Discharge Medications: Continue taking these medications: Apixaban (Eliquis) 2.5 MG TABLET 1 Tablet ORAL TWICE DAILY Comments: GIVEN 07/10/16 @ 1036 Esomeprazole (Nexium) 40 MG CAPSULE. 1 Capsule ORAL TWICE DAILY Qty = 30 Comments: GIVEN PRILOSEC IN HOSPITAL ON 07/10/16 @ 1036 Cyanocobalamin/FA/Pyridoxine (Folbic Tablet) 1 EACH TABLET 1 Tablet ORAL DAILY Qty = 30 Comments: NOT GIVEN Budesonide/Formoterol Fumarate (Symbicort 160-4.5 Mcg Inhaler) 160 MCG-4.5 MCG/ ACTUATION HFA.AER.AD 2 Puff Inhale through mouth TWICE DAILY Comments: GIVEN 07/10/16 @ 1036 Polyethylene Glycol 3350 (Clearlax) 17 GRAM/DOSE POWDER 1 Capsule ORAL DAILY Comments: GIVEN 07/06/16 @ 1012 Levothyroxine Sodium (Levothyroxine Sodium) 25 MCG TABLET 1 Tablet ORAL DAILY BEFORE BREAKFAST Qty = 60 Comments: GIVEN 07/10/16 @ 0620 Allopurinol (Allopurinol) 100 MG TABLET 1 Tablet ORAL DAILY Qty = 60 Comments: GIVEN 07/10/16 @ 1036 Prednisone (Prednisone) 5 MG TABLET 1 Tablet ORAL Every Morning Comments: GIVEN 07/10/16 @ 1036 Sennosides/Docusate Sodium (Senna S Tablet) 8.6 MG-50 MG TABLET 2 Tablet ORAL Every night Comments: NOT GIVEN Digoxin (Lanoxin) 125 MCG TABLET 0.125 Milligram ORAL WEDNESDAY, WEDNESDAY, WEDNESDAY Qty = 30 Comments: GIVEN 07/09/16 @ 1000 Aspirin (Ecotrin*) 81 MG TABLET. 81 Milligram ORAL DAILY Qty = 60 Comments: GIVEN 07/10/16 @ 1036 Carvedilol (Coreg) 6.25 MG TABLET 18.75 Milligram ORAL TWICE DAILY Qty = 180 Comments: GIVEN 07/10/16 @ 1036 Atorvastatin Calcium (Lipitor) 80 MG TABLET 1 Tablet ORAL DAILY Qty = 30 Comments: GIVNE 07/09/16 @ 4:24 PM Furosemide (Lasix) 40 MG TABLET 1 Tablet ORAL DAILY Qty = 30 Comments: GIVEN 07/08/16 @ 6 PM Oxycodone HCl/Acetaminophen (Percocet 5-325 MG Tablet) 5 MG-325 MG TABLET 1-2 Tablet ORAL EVERY 4-6 HOURS as needed for PAIN Copies To: JEAN CARRERA,ERNESTO; CIRILO CARRERA,PATRICIA Rollins; BRICE CARRERA,Herberth FU
--- NOTE | 2016-07-20 07:55 | PN- Housestaff ---
ABDIAS CARRERA,LEELA 07/20/16 0755: Subjective Follow-up For: Chest pain with elevated troponin and bilateral lower extremity edema, probably secondary to cardiomyopathy, but need to be evaluated for coronary artery disease Complaints: no complaints Tele-Events Since Last Visit: Patient beats with heart rate between 69-72 Subjective: Patient is seen and examined at the bedside. He was comfortable and sitting on the couch. He was still complaining of cough. He denies of any shortness of breath on rest but still having shortness of breath on slight exertion. Review of Systems Constitutional: Reports: weakness. Cardiovascular: Reports: edema, orthopena, palpitations, peripheral edema. Denies: chest pain. Respiratory: Reports: cough, orthopnea, short of breath, sputum production. Gastrointestinal: Denies: abdominal pain, bloating, constipation, diarrhea, distention. Genitourinary: Denies: no symptoms. Musculoskeletal: Denies: no symptoms. Skin: Denies: no symptoms. Neurological/Psychological: Reports: anxiety. Objective Last 24 Hrs of Vital Signs/I&O Vital Signs Date Time Temp Pulse Resp B/P Pulse O2 O2 Flow FiO2 Ox Delivery Rate 07/20 1123 98.1 70 20 132/62 07/20 1027 70 132/62 07/20 0918 92 Room Air Room Air 07/20 0815 98.1 70 20 132/62 92 Room Air 07/19 2140 98.5 69 20 128/50 95 Room Air 07/19 2131 69 128/50 07/19 1945 95 Room Air Intake & Output 07/20 1600 07/20 0800 07/20 0000 Intake Total 720 Output Total 500 600 Balance -500 120 Intake, Oral 720 Output, Urine 500 600 Patient 82.327 kg Weight Physical Exam General Appearance: Alert, Oriented X3, Cooperative, No Acute Distress Skin: No Rashes, No Breakdown Cardiovascular: irregular with murmur Lungs: bilateral basilar crackles Abdomen: Soft, No Tenderness Neurological: Normal Speech Extremities: pitting edema Vascular: cannt palpated due to edema Assessment/Plan Assessment: Patient is an 84-year-old male with significant past medical history of hypertension, hyperlipidemia, coronary artery disease, status post CABG(2002), LCX stent (2014), atrial fibrillation on Apixaban, CHF with ejection fraction of 45-50%, cardiomyopathy, s/p ICD, bilateral lower extremity edema, recurrent chest pain sent in by his street inspector, Dr. Vidales for evaluation of chest pain. Vital signs-temperature 98.9, pulse 70, respiratory rate 16, blood pressure 136/ 53, SPO2 98%, intake/output-130/400 Plan- Discharge today to [facility] for angio Bilaterally, worsening pedal edema, recurrent chest pain, elevated troponin- probably cardiomyopathy with demand ischemia, need evaluation- * Discuss with Dr. Vidales patient is having elevated troponin secondary to demand ischemia. He is having recurrent admission secondary to shortness of breath and fluid retention in the legs. He may need elective cardiac catheterization. * cath today * We holded Eliquis today for cardiac cath on 07/20 * NPO * We CBC, BEP, PT, PTT is done * According to supervisor wire rope fabrication, we hold Lasix 24-hour prior to catheterization, * Troponins trended down * Continue leg elevation, with Daniel wrap * Strict intake output charting Episodes of ventricular tachycardia * Discussed with according to him, patient is having ICD and beta azeem, that will help. * Continue telemetry monitoring Acute on chronic renal disease * Creatinine 1.6 today. * Follow nephro recs Anemia of chronic disease * Cont to watch for the signs of bleeding as the patient was on Eliquis Diet-heart healthy diet with fluid restriction DVT prophylaxis-ALPS CODE STATUS-full code Problem List: 1. Bilateral leg edema 2. CHF exacerbation 3. TIA (transient ischemic attack) 4. Chest pain syndrome 5. Atrial fibrillation Pain Ratin Pain Location: chest Pain Goal: Remain pain free Pain Plan: avoid Nsaids Tomorrow's Labs & Rationales: none DVT/Prophylaxis: mechanical, pharmacological MAURICIO ARRIOLA MD 07/20/16 1402: Attending MD Review Statement Attending Statement Attending MD Statement: examined this patient, discuss w/resident/PA/WATER FILTRATION TECHNICIAN, agreed w/resident/PA/WATER FILTRATION TECHNICIAN, reviewed EMR data (avail) Attending Assessment/Plan: Patient doing well, diuresed well over weekend. Patient will be transferred to [facility] for cardiac catheterization.
[2016-07-20 08:08] LABS: ABSOLUTE BASOPHIL COUNT 0 /CUMM (0.0-0.2); ABSOLUTE EOSINOPHIL COUNT 0.1 /CUMM (0.0-0.7); ABSOLUTE GRANULOCYTE CT 8.5 /CUMM (1.4-6.5); ABSOLUTE LYMPH COUNT 1.4 /CUMM (1.2-3.4); ABSOLUTE MONOCYTE COUNT 0.5 /CUMM (0.10-0.60); BASOPHIL % 0.4 % (0.0-2.0); GRANULOCYTE % 80.5 % (42.2-75.2); HEMATOCRIT 29.4 % (42-52); MEAN CORPUSCULAR HGB 30.1 PG (27.0-31.0); MEAN CORPUSCULAR HGB CONC 32.3 G/DL (33.0-37.0); MEAN CORPUSCULAR VOLUME 93.1 FL (80.0-94.0); PLATELET COUNT 221 /CUMM (130-400); RBC DISTRIBUTION WIDTH 15.8 % (11.5-14.5); RED BLOOD CELL CT 3.15 /CUMM (4.70-6.10); WHITE BLOOD CELL COUNT 10.6 /CUMM (4.8-10.8)
[2016-07-20 08:15] VITALS: BP 132/62
[2016-07-20 08:25] LABS: PT 13.7 SEC (9.4-12.5); PTT 28 SEC (25-37)
--- NOTE | 2016-07-20 11:15 | Patient Discharge Instructions ---
Discharge Instructions General Discharge Information You were seen/treated for: CHEST PAIN ELEVATED TROPONINS SHORTNESS OF BREATH AND LEG SWELLING You had these procedures: HESHAM CARLOS Age: 85 : 1930 Gender: M Exam Date: 07/17/2016 11:05 Exam Location: [address] [place] [address] Ht (in): 66 Wt (lb): 182 BSA: 1.98 BP: 136 / 58 Ordering Physician: TARA PHOENIX MD Referring Physician: TARA PHOENIX MD Technologist: David Barriga [facility] Room Number: [id number] Indications: Chest Pain Rhythm: Atrial fibrillation Technical Quality: Fair FINDINGS Left Ventricle Normal size left ventricle. Borderline normal left ventricular ejection fraction estimated at 50-55%. Right Ventricle Right ventricle not well visualized, grossly normal. Right Atrium Right atrium not well visualized, grossly normal. Left Atrium Left atrial dilatation. Mitral Valve Mitral valve thickened. Mild mitral annular calcification. Aortic Valve Trileaflet aortic valve. Diffuse thickening (sclerosis) of the aortic valve cusps without reduced excursion. Mild aortic regurgitation. Tricuspid Valve Tricuspid valve not well visualized, grossly normal. Mild tricuspid regurgitation. Pulmonic Valve Pulmonic valve not well visualized, grossly normal. Pericardium No pericardial effusion. Great Vessels Aortic root and proximal ascending aorta not well visualized, grossly normal. CONCLUSIONS 1. This was a limited followup examination performed to reassess LV systolic function and wall motion 2. Aortic sclerosis is present with mild aortic insuffciiency. 3. Mitral leaflet thickening is present with mild anular calcification . 4. There is no pericardial fluid detected. 5. The left ventricular chamber size is normal. THe ejection fraction is 50-55%.. A false tendon is present at the apex. 6. Left atrial enlargement is present. 7. Pacemaker wires are noted in the right heart chambers. Mild tricuspid insufficiency is present. THe RV systolic pressure was not accurately assessed. Special Instructions: -Please follow up wtih Dr. Vidales 1 week after discharge. Please follow up with the CHF clinic and cardiac rehab. -Please follow up with Dr. Dowd in the outpatient setting after your cardiac cath for continued management of your chronic kidney disease. Diet Continue normal diet: No Recommended Diet: Heart Healthy Activity Activity Self Limited: Yes Acute Coronary Syndrome Inclusion Criteria At DC or during hospital stay patient has or had the following: ACS DIAGNOSIS No Discharge Core Measures Meds if any: Prescribed or Continued at Discharge Meds if any: NOT Prescribed or Continued at Discharge Congestive Heart Failure Inclusion Criteria At DC or during hospital stay patient has or had the following: CHF DIAGNOSIS No Discharge Core Measures Meds if any: Prescribed or Continued at Discharge Meds if any: NOT Prescribed or Continued at Discharge Cerebrovascular accident Inclusion Criteria At DC or during hospital stay patient has or had the following: CVA/TIA Diagnosis No Discharge Core Measures Meds if any: Prescribed or Continued at Discharge Meds if any: NOT Prescribed or Continued at Discharge Venous thromboembolism Inclusion Criteria VTE Diagnosis No VTE Type NONE VTE Confirmed by (Test) NONE Discharge Core Measures - Per Current guidelines, there needs to be overlap - treatment for the first 5 days of Warfarin therapy. - If discharged on Warfarin prior to 5 days of - overlap therapy, the patient will need to be - assessed for post discharge needs including - *Post discharge parental anticoagulation - *Warfarin and/or parental anticoagulation education - *Follow up date to check INR post discharge At least 5 days overlap therapy as Inpatient No Meds if any: Prescribed or Continued at Discharge Note: Overlap Therapy is Warfarin and Anticoagulant Meds if any: NOT Prescribed or Continued at Discharge
[2016-07-20 11:23] VITALS: BP 132/62
--- NOTE | 2016-07-20 11:56 | PN- Cardiology ---
Subjective Subjective: Feeling well. No current chest pain. Persistent lower extremity edema is noted. No shortness of breath. No diaphoresis. No palpitations. Objective Vital Signs and I&Os Vital Signs Date Time Temp Pulse Resp B/P Pulse O2 O2 Flow FiO2 Ox Delivery Rate 07/20 0918 92 Room Air Room Air 07/20 0815 98.1 70 20 132/62 92 Room Air 07/19 2140 98.5 69 20 128/50 95 Room Air 07/19 2131 69 128/50 07/19 1945 95 Room Air 07/19 1629 97.3 68 18 112/54 93 Nasal Cannula 07/19 1623 97 07/19 1123 98 Nasal 1.0L Cannula Intake & Output 07/20 1600 07/20 0800 07/20 0000 07/19 1600 07/19 0800 07/19 0000 Intake Total 720 400 100 Output Total 500 410 344 1644 900 Balance -500 120 -250 -1200 -800 Intake, Oral 720 400 100 Number 1 Bowel Movements Output, Urine 500 387 618 4458 900 Patient 182 lb 183 lb Weight Physical Exam: Gen: NAD HEENT: normal Lungs: clear to auscultation, normal resp. effort Heart: RRR, S1, S2, 1/6 systolic murmur Abdomen: Soft, nontender, no masses Extremities: 2+ edema Neuro: Alert and oriented x 3, cranial nerves intact Current Medications: Current Medications Sig/Jaswinder Start time Last Medication Dose Route Stop Time Status Admin Albuterol Sulfate 3 ML BID 07/17 1021 AC 07/20 INH 0917 Allopurinol 100 MG DAILY 07/17 1000 AC 07/19 PO 0903 Aspirin Buffered 81 MG DAILY 07/17 1000 AC 07/19 PO 0903 Atorvastatin Calcium 80 MG 1700 07/17 1700 AC 07/19 PO 1541 Carvedilol 18.75 MG BID 07/16 2200 AC 07/19 PO 2131 Digoxin 0.125 MG TUES THURS SAT 07/18 1000 AC 07/18 PO 0853 Levothyroxine Sodium 0.025 MG DAILY AC 07/17 0700 AC 07/20 PO 0603 Omeprazole 40 MG BID 07/16 2200 AC 07/19 PO 2132 Oxycodone/ 1 TAB Q6P PRN 07/18 2345 AC 07/19 Acetaminophen PO 2132 Polyethylene Glycol 17 GM DAILY 07/17 1000 AC PO Potassium Chloride 40 MEQ ONCE ONE 07/19 1030 DC 07/19 PO 07/19 1031 1128 Prednisone 5 MG DAILY 07/17 1000 AC 07/19 PO 0903 Senna/Docusate Sodium 2 TAB QPM 07/16 2200 AC 07/18 PO 2115 Results Last 48 Hrs of Labs/Mics: Laboratory Tests 07/20/16 0649: Anion Gap 9, Estimated GFR 41 L, BUN/Creatinine Ratio 28.8 H, PT 13.7 H, INR 1.31 H, APTT 28, CBC w Diff NO MAN DIFF REQ, RBC 3.15 L, MCV 93.1, MCH 30.1, RDW 15.8 H, MPV 9.0, Gran % 80.5 H, Lymphocytes % 13.0 L, Monocytes % 5.1, Eosinophils % 1.0, Basophils % 0.4, Absolute Granulocytes 8.5 H, Absolute Lymphocytes 1.4, Absolute Monocytes 0.5, Absolute Eosinophils 0.1, Absolute Basophils 0, PUBS MCHC 32.3 L 07/19/16 0620: Anion Gap 8, Estimated GFR 34 L, BUN/Creatinine Ratio 26.8 H, Magnesium 2.1, CBC w Diff NO MAN DIFF REQ, RBC 2.73 L, MCV 93.2, MCH 30.1, RDW 16.1 H, MPV 8.9, Gran % 82.0 H, Lymphocytes % 11.1 L, Monocytes % 5.9, Eosinophils % 0.7, Basophils % 0.3, Absolute Granulocytes 7.7 H, Absolute Lymphocytes 1.1 L, Absolute Monocytes 0.6, Absolute Eosinophils 0.1, Absolute Basophils 0, PUBS MCHC 32.4 L Assessment/Plan Assessment/Plan Assessment: 1. Chest discomfort with minimally elevated troponin 2. Cardiomyopathy with ejection fraction of 45-50% 3. Worsening LE edema 4. Chronic renal insufficiency 5. CAD - last Cath in 2014 showed patent LCFx stent and occluded PLLV branch filling via left to right collaterals. 6. Anemia Plan: * Nothing by mouth * Continue current medications. * Transfer to [facility] for cardiac catheterization with Dr. Hassan * F/U with Dr. Vidales 1 week after discharge Continue telemetry? Yes
== END 2016-07-20 12:13 | disposition short-term general hospital (02) ==
LOC: ENRESERVTM → ENRESERVDT → ERH 10:36 → 1NO 19:00 → ERHI 19:00 → 1NO 21:59
PROVIDERS: Internal Medicine; Physician Assistant; ADMIT Hospitalist
DX: I50.33 Acute on chronic diastolic (congestive) heart failure (principal); I48.91 Unspecified atrial fibrillation; Z79.01 Long term (current) use of anticoagulants; E78.5 Hyperlipidemia, unspecified; I25.2 Old myocardial infarction; K21.9 Gastro-esophageal reflux disease without esophagitis; E03.9 Hypothyroidism, unspecified; Z85.46 Personal history of malignant neoplasm of prostate; Z85.118 Personal history of other malignant neoplasm of bronchus and lung; Z86.73 Personal history of transient ischemic attack (TIA), and cerebral infarction without residual deficits; R51 Headache; I12.9 Hypertensive chronic kidney disease with stage 1 through stage 4 chronic kidney disease, or unspecified chronic kidney disease; N18.9 Chronic kidney disease, unspecified; Z95.1 Presence of aortocoronary bypass graft; I25.5 Ischemic cardiomyopathy; Z95.0 Presence of cardiac pacemaker; D63.1 Anemia in chronic kidney disease; I24.8 Other forms of acute ischemic heart disease
CPT/HCPCS: 1263; 1328; 1425; 1530; 1748; 36415; 82436; 87040; 93005; 93010; 93308; 93321; 96374; 96375; 96376; G0378; J0131; J1644; J1940; J3490; J7512

== ENCOUNTER 2016-08-11 20:06 | Emergency (ER) | payer OTHER, BC, MEDICARE ==
[~2016-08-11] VITALS: Ht 167.6 cm; Wt 85.3 kg
[~2016-08-11 20:06] MED LIST changes: +LOSARTAN POTAS100 M1
--- NOTE | 2016-08-11 20:23 | ED DYSPNEA/ASTHMA COMPLAINT ---
History of Present Illness General Chief Complaint: Dyspnea (COPD, CHF, Other) Stated Complaint: DIFFICULTY BREATHING Source: patient, family, old records Exam Limitations: no limitations Vital Signs & Intake/Output Vital Signs & Intake/Output Vital Signs Date Time Temp Pulse Resp B/P Pulse O2 O2 Flow FiO2 Ox Delivery Rate 08/11 2204 76 24 130/60 100 Nasal 2.0L Cannula 08/11 2104 99 Nasal 1.0L Cannula 08/11 2013 98.9 82 20 146/67 92 Room Air ED Intake and Output 08/12 0000 08/11 1200 Intake Total Output Total Balance Patient 188 lb Weight Allergies Coded Allergies: NSAIDS (Non-Steroidal Anti-Inflamma (Intermediate, POOR kidney functions, avoid NSAIDs! 07/16/16) Reconcile Medications Allopurinol 100 MG TABLET 1 TAB PO DAILY GOUT Apixaban (Eliquis) 2.5 MG TABLET 1 TAB PO BID BLOOD THINNER (Reported) Aspirin (Ecotrin*) 81 MG TABLET.DR 81 MG PO DAILY Heart health Atorvastatin Calcium (Lipitor) 80 MG TABLET 1 TAB PO DAILY High cholesterol Budesonide/Formoterol Fumarate (Symbicort 160-4.5 Mcg Inhaler) 160 MCG-4.5 MCG/ ACTUATION HFA.AER.AD 2 PUF INH BID BREATHING PROBLEMS (Reported) Carvedilol (Coreg) 6.25 MG TABLET 18.75 MG PO BID heart rate Cholecalciferol (Vitamin D3) (Vitamin D) 1,000 UNIT TABLET 1 TAB PO DAILY SUPPLEMENT (Reported) Cyanocobalamin/FA/Pyridoxine (Folbic Tablet) 1 EACH TABLET 1 TAB PO DAILY SUPPLEMENT (Reported) Digoxin (Lanoxin) 125 MCG TABLET 0.125 MG PO Wed Heart rate control Esomeprazole (Nexium) 40 MG CAPSULE.DR 1 CAP PO BID GI (Reported) Furosemide (Lasix) 40 MG TABLET 1 TAB PO DAILY CHF Levothyroxine Sodium 25 MCG TABLET 1 TAB PO DAILY AC THYROID Oxycodone HCl/Acetaminophen (Percocet 5-325 MG Tablet) 5 MG-325 MG TABLET 1-2 TAB PO Q4-6 PRN PAIN (Reported) Polyethylene Glycol 3350 (Clearlax) 17 GRAM/DOSE POWDER 1 CAP PO DAILY GI ( Reported) Prednisone 5 MG TABLET 1 TAB PO QAM GOUT (Reported) Sennosides/Docusate Sodium (Senna S Tablet) 8.6 MG-50 MG TABLET 2 TAB PO QPM CONSTIPATION (Reported) Triage Note: 85 YEAR OLD MALE TO ER WITH COMPLAINTS OF SUDDEN ONSET INCREASED SOB OVER THE PAST 1 HOUR, O2 SAT 92 % ON RA, PT PALE UNABLE TO LAY FLAT, PT HAS HISTORY OF COPD/CHF. NOTED WITH BLE EDEMA, STATES THAT HE ALWAYS HAS EDEMA.TO ROOM Triage Nurses Notes Reviewed? yes HPI: Patient was dozing in his recliner when he suddenly developed swelling out of the chair and onto the floor. Patient did not fall out of the chair no was a actively moving at the time however he became startled and began to have difficulty breathing. Patient denies any chest pain or palpitations. Patient has chronic pedal edema but states it is not worse than normal. Patient denies any orthopnea. The symptoms continued to the patient comes in for evaluation. Past History Travel History Traveled to [facility] past 21 day No Medical History Any Pertinent Medical History? see below for history Neurological: STROKE EENT: cataracts Cardiovascular: AFIB, CHF, hypertension, hyperlipidemia, myocardial infarction, mutiple stents. 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 SISTER (CAD). Hx Contributory? No Review of Systems Review of Systems Constitutional: Reports: no symptoms. EENTM: Reports: no symptoms. Respiratory: Reports: see HPI, short of breath. Cardiovascular: Reports: no symptoms. GI: Reports: no symptoms. Genitourinary: Reports: no symptoms. Musculoskeletal: Reports: no symptoms. Skin: Reports: no symptoms. Neurological/Psychological: Reports: no symptoms. Hematologic/Endocrine: Reports: no symptoms. Immunologic/Allergic: Reports: no symptoms. All Other Systems: Reviewed and Negative Physical Exam Physical Exam General Appearance: well developed/nourished, alert, awake, anxious, mild distress Head: atraumatic, normal appearance Eyes: Bilateral: PERRL, EOMI. Ears, Nose, Throat: normal pharynx, normal ENT inspection, hearing grossly normal Neck: normal inspection, supple, full range of motion, NO jvd Respiratory: normal breath sounds, chest non-tender, no respiratory distress, lungs clear Cardiovascular: regular rate/rhythm, normal peripheral pulses Gastrointestinal: normal bowel sounds, soft, non-tender Extremities: normal capillary refill, pedal edema Neurologic/Psych: no motor/sensory deficits, awake, alert, oriented x 3, normal mood/affect Lymphatic: no anterior cervical angelita Core Measures ACS in differential dx? No Severe Sepsis Present: No Septic Shock Present: No Progress Differential Diagnosis: AMI, bronchitis, CHF, COPD, pulmonary embolism, pneumonia, pneumothorax Plan of Care: Orders Procedure Date/time Status Telemetry/Laundry Bag Punch Operator 08/11 2026 Active TROPONIN LEVEL 08/11 2026 Complete D-DIMER 08/11 2026 Complete COMPREHENSIVE METABOLIC PANEL 08/11 2026 Complete CBC WITHOUT DIFFERENTIAL 08/11 2026 Complete B-TYPE NATRIURETIC PEP (BNP) 08/11 2026 Complete EKG 08/12 2007 Active Laboratory Tests 08/11/162048: Anion Gap 9, Estimated GFR 30 L, BUN/Creatinine Ratio 22.4, Glucose 150 H, Calcium 9.7, Total Bilirubin 0.8, AST 23, ALT 38, Alkaline Phosphatase 97, Troponin I 0.13 *H, Wwu-B-Zhzlwiudwjs Pept 6560 H, Total Protein 6.4, Albumin 3.3 L, Globulin 3.1, Albumin/Globulin Ratio 1.1, D-Dimer 362 H, CBC w Diff NO MAN DIFF REQ, RBC 3.16 L, MCV 91.4, MCH 29.6, RDW 16.2 H, MPV 8.4, Gran % 86.5 H, Lymphocytes % 8.0 L, Monocytes % 4.6, Eosinophils % 0.7, Basophils % 0.2, Absolute Granulocytes 8.8 H, Absolute Lymphocytes 0.8 L, Absolute Monocytes 0.5, Absolute Eosinophils 0.1, Absolute Basophils 0, PUBS MCHC 32.4 L Diagnostic Imaging: Viewed by Me: Radiology Read. Discussed w/RAD: Radiology Read. CXR Impression: PATIENT: HESHAM CARLOS PRESENT AGE: 85 PATIENT ACCOUNT NO: [id number] : 32 LOCATION: [facility] ORDERING PHYSICIAN: CHELI JURADO MD SERVICE DATE: 08/11/16-2026 EXAM TYPE: RAD - XRY-PORTABLE CHEST XRAY EXAMINATION: XR PORTABLE CHEST CLINICAL INFORMATION: Pulmonary edema. Shortness of breath. COMPARISON: Chest x-ray 08/03/2016 TECHNIQUE: Portable AP view of the chest was obtained. 8:36 PM FINDINGS: No change position of pacemaker leads since prior exam 08/03/2016. There is vascular wall calcifications of aorta. No pulmonary vascular congestion. Asymmetric elevation of left diaphragm with subsegmental atelectasis above the diaphragm. There is no infiltrate. Chronic blunting of the right costophrenic angle. Pleural parenchymal scarring at the right costophrenic angle unchanged since prior studies. IMPRESSION: No significant pulmonary vascular congestion. No acute change of the chest. DICTATED BY: KEN RODRIGUEZ MD DATE/TIME DICTATED:2113 CAGE SUPERVISOR:FRANCISCO JAVIER DATE/TIME TRANSCRIBED:08/11/162113 CONFIDENTIAL, DO NOT COPY WITHOUT APPROPRIATE AUTHORIZATION. <Electronically signed in Other Vendor System> SIGNED BY: KEN RODRIGUEZ MD 08/11/162119 Initial ED EKG: pacemaker rhythm Prior EKG: unchanged Comments: Patient ambulatory saturation dropped to 87% on room air. Patient still wants to go home. Patient states that he will not be walking at home has a wheelchair as well. Patient advised that his oxygen level did get Prelone is walking. The patient and his verbally understand the risks of leaving however he states that he'll feel more comfortable at home. Departure Departure Disposition: HOME OR SELF CARE Condition: Stable Clinical Impression Primary Impression: Dyspnea Referrals: ERINN CARRERA,DOUGLAS Bustamante (PCP/Family) Additional Instructions: RETURN FOR ANY CONCERNS OR IF SYMPTOMS WORSEN AT ALL Departure Forms: Customer Survey General Discharge Information Critical Care Note Critical Care Note Critical Care Time: non-applicable
[2016-08-11 21:15] LABS: ABSOLUTE BASOPHIL COUNT 0 /CUMM (0.0-0.2); ABSOLUTE EOSINOPHIL COUNT 0.1 /CUMM (0.0-0.7); ABSOLUTE GRANULOCYTE CT 8.8 /CUMM (1.4-6.5); ABSOLUTE LYMPH COUNT 0.8 /CUMM (1.2-3.4); ABSOLUTE MONOCYTE COUNT 0.5 /CUMM (0.10-0.60); BASOPHIL % 0.2 % (0.0-2.0); EOSINOPHIL % 0.7 % (0-5); HEMATOCRIT 28.8 % (42-52); MEAN CORPUSCULAR HGB 29.6 PG (27.0-31.0); MEAN CORPUSCULAR HGB CONC 32.4 G/DL (33.0-37.0); MEAN CORPUSCULAR VOLUME 91.4 FL (80.0-94.0); MEAN PLATELET VOLUME 8.4 FL (7.4-10.4); PLATELET COUNT 197 /CUMM (130-400); RBC DISTRIBUTION WIDTH 16.2 % (11.5-14.5); RED BLOOD CELL CT 3.16 /CUMM (4.70-6.10); WHITE BLOOD CELL COUNT 10.1 /CUMM (4.8-10.8)
--- NOTE | 2016-08-11 21:20 | RADIOLOGY REPORT ---
EXAMINATION: XR PORTABLE CHEST CLINICAL INFORMATION: Pulmonary edema. Shortness of breath. COMPARISON: Chest x-ray 08/03/2016 TECHNIQUE: Portable AP view of the chest was obtained. 8:36 PM FINDINGS: No change position of pacemaker leads since prior exam 08/03/2016. There is vascular wall calcifications of aorta. No pulmonary vascular congestion. Asymmetric elevation of left diaphragm with subsegmental atelectasis above the diaphragm. There is no infiltrate. Chronic blunting of the right costophrenic angle. Pleural parenchymal scarring at the right costophrenic angle unchanged since prior studies. IMPRESSION: No significant pulmonary vascular congestion. No acute change of the chest.
[2016-08-11 21:26] LABS: GRANULOCYTE % 86.5 % (42.2-75.2)
[2016-08-11] MEDS ORDERED: VITAMIN D1000 UNIT PO (21:31)
[2016-08-11 22:04] VITALS: BP 130/60
== END 2016-08-11 22:37 ==
LOC: ERH 20:06
PROVIDERS: Emergency Medicine
DX: R06.00 Dyspnea, unspecified (principal); R60.0 Localized edema; I50.9 Heart failure, unspecified; I10 Essential (primary) hypertension; I48.91 Unspecified atrial fibrillation; E03.9 Hypothyroidism, unspecified
CPT/HCPCS: 93005; 93010